=== PATIENT | female | born 1990 | race Caucasian/White ===

== ENCOUNTER 2019-03-11 13:06 | Outpatient (CLI) | payer SELFPAY ==
--- NOTE | 2019-03-11 15:29 | XR_ITS ---
WS: [id number] Chest 2 views, 03/11/2019 Clinical Data: ?PNEUMONIA Comparison: PA and lateral chest, 02/27/2019. Findings: No nodules, masses or effusions are seen. The heart is normal. The pulmonary vascularity is not increased. No pneumonia or pneumothorax is seen. XR/XR chest 2V* [id number] Impression: Negative chest.
== END 2019-03-11 13:07 | disposition home or self-care (01) ==
PROVIDERS: Family Provider Nurse Practitioner; PCP Nurse Practitioner; Visit Provider Internal Medicine Critical Care Medicine
DX: J45.909 Unspecified asthma, uncomplicated (principal)
CPT/HCPCS: 71046

== ENCOUNTER 2019-03-12 12:48 | Outpatient (CLI) | payer SELFPAY ==
[2019-03-15 17:02] LABS: Immunoglobulin E 93 kU/L (<OR=114)
== END 2019-03-12 12:49 | disposition home or self-care (01) ==
LOC: LAB 12:52
PROVIDERS: Family Provider Nurse Practitioner; PCP Nurse Practitioner; Visit Provider Internal Medicine Critical Care Medicine
DX: J45.909 Unspecified asthma, uncomplicated (principal)
CPT/HCPCS: 36415; 82785; 85025

== ENCOUNTER 2019-03-12 18:18 | Emergency (ER) | payer SELFPAY ==
[2019-03-12 18:19] VITALS: BP 167/100; PULSE 94; RESP 20; TEMP 36.9; O2SAT 94; BMI 44.9
--- NOTE | 2019-03-12 18:34 | XRR_ITS ---
PROCEDURE INFORMATION: Exam: XR Chest, 1 View Exam date and time: 03/12/2019 7:59 PM Age: 28 years old Clinical indication: Cough TECHNIQUE: Imaging protocol: XR of the chest Views: 1 view. COMPARISON: CR XR chest 2V* [id number] 03/11/2019 3:46 PM FINDINGS: Lungs: Unremarkable. No consolidation. Unchanged left basilar scarring. Unchanged mild basilar fibrosis. Pleural space: Unremarkable. No pleural effusion. No pneumothorax. Heart/Mediastinum: Unremarkable. No cardiomegaly. Bones/joints: Unremarkable. XR/XR chest 1V [id number] IMPRESSION: No acute findings.
--- NOTE | 2019-03-12 20:20 | PC.NURSE ---
Collected Urine from waiting room. Urine was sitting on registration desk and was taken to lab.
--- NOTE | 2019-03-12 20:51 | ED_ITS ---
HPI - SOB/Dyspnea General: Chief Complaint: Shortness of Breath/Dyspnea Stated Complaint: COUGH/BACK PAIN Time Seen by Provider: 03/12/19 20:51 Source: patient Mode of arrival: ambulatory Limitations: no limitations History of Present Illness: HPI Narrative: Patient is a 28-year-old female who presents to ED today with complaints of continued cough and congestion; patient states she is coughing so much that now the right side of her ribs hurt; patient apparently has been recently evaluated by pulmonology Dr. Tong and had a complete thorough evaluation performed including testing for alpha-1 which she does not know the results of yet; patient states he prescribed her steroids and azithromycin that she has just now filled MD elicited complaint: cough and pain with inspiration Onset (ago): day(s) Timing: constant Severity: moderate Exacerbating factors: nothing Relieving factors: nothing Associated symptoms: Reports no associated symptoms and chest congestion; Deny abdominal pain, chest pain (R rib pain), fever(s), hemoptysis, lightheadedness, nausea, palpitations, syncope or vomiting Treatment prior to arrival: none Related Data: Home oxygen amount: none Review of Systems Const: Denies: fever, chills or body aches Eyes: Denies: change in vision or blurry vision ENMT: Denies: throat pain, enlarged tonsils or painful swallowing Card: Denies: chest pain (R rib pain), palpitations, irregular heart rhythm, lightheadedness or syncope Resp: Reports: shortness of breath, productive cough, pain on inspiration and chest congestion; Denies: wheezing, stridor, change in phlegm color or coughing up blood GI: Denies: abdominal pain, nausea, vomiting, heartburn/indigestion or diarrhea : Denies: painful urination Musc: Denies: neck pain, back pain or joint pain Skin/Breast: Denies: rash PFSH ED PFSH: Statuses (acute, chronic, etc) shown below reflect problem list status as previously entered and may not be historically accurate Medical History (Updated 03/12/19 @ 22:17 by ANDI Benitez) Abscess of forearm, right (Acute) Acquired hypothyroidism (Acute) Allergic rhinitis, unspecified (Acute) Elevated ALT measurement (Acute) Essential (primary) hypertension (Acute) Family history of alpha 1 antitrypsin deficiency (Acute) Fibromyalgia (Acute) Generalized anxiety disorder (Acute) H/O drug abuse (Acute) Hx of abscess of skin and subcutaneous tissue (Acute) Intravenous drug user (Acute) Major depressive disorder, recurrent, moderate (Acute) Nontoxic thyroid nodule (Acute) Other constipation (Acute) Polycystic ovarian syndrome (Acute) Unspecified abdominal pain (Acute) Unspecified asthma, uncomplicated (Acute) Surgical History (Updated 03/11/19 @ 12:43 by Freddie Tong MD) Hx of cholecystectomy (Acute) Social History Smoking and tobacco status: current every day smoker cigarettes Packs smoked per day: 1.5 Years cigarettes smoked: 15 Quit status (tobacco): considering quitting Smoking risk assessment/counseling performed?: Yes Alcohol intake: current Alcohol intake frequency: 3 or more drinks per day Alcohol type: hard liquor Last alcohol use date: 03/11/19 Last substance use date: 04/23/18 Lives independently: Yes Household members: family Marital status: Single Current occupational status: employed History of recent travel: No Current gender identity: Female Female Reproductive History: Para: 2 Physical Exam Const: COMMON NORMALS: no apparent distress, oriented x3 and alert GENERAL APPEARANCE: cooperative HENMT: COMMON NORMALS: normocephalic, head/scalp atraumatic, external ears normal, EAC's normal, TM's normal bilaterally and external nose normal HEAD & SCALP: normal to inspection, normocephalic and atraumatic FACE & SINUS: normal facial exam NOSE: external nose normal EXTERNAL EAR: Yes external ears normal EXTERNAL AUDITORY CANAL: EAC's normal TYMPANIC MEMBRANE: TM's normal bilaterally MOUTH: oral and palatal mucosa normal THROAT: posterior oropharynx normal, tonsils normal and uvula midline Eye: COMMON NORMALS: PERRL and EOMs intact bilaterally PUPIL: Yes PERRL Neck/C-Spine: COMMON NORMALS: full ROM, no lymphadenopathy, supple and no meningeal signs Resp: COMMON NORMALS: normal respiratory effort, no retractions, no use of accessory muscles and clear to auscultation bilaterally AUSCULTATION: clear to auscultation bilaterally OTHER: course sounding cough noted; TTP R lateral ribs Cardio: COMMON NORMALS: regular rate and regular rhythm RATE: regular rate RHYTHM: regular rhythm GI: COMMON NORMALS: normal to inspection, nondistended, normoactive bowel sounds, soft to palpation, non-tender, no hepatosplenomegaly and no masses PALPATION: Yes soft and Yes no hepatosplenomegaly Back/Pelvis: COMMON NORMALS: thoracic and lumbar spine normal to inspection Extremity: COMMON NORMALS: normal to inspection GENERAL: Yes normal exam except as noted Neuro: COMMON NORMALS: oriented x3 SENSORIUM/ORIENTATION: Yes alert MENINGEAL SIGNS: Yes no meningeal signs Course Reevaluation(s): Reevaluation #1: re-evaluation reveals a room that smells like etoh; when asked if patient has been drinking she responds duh-everyone knows I'm an alcoholic Vital Signs: Vital signs: Vital Signs Temperature 98.4 F 03/12/19 18:19 Pulse Rate 106 H 03/12/19 22:25 Respiratory Rate 16 03/12/19 22:25 Blood Pressure 132/104 03/12/19 22:25 Pulse Oximetry 95 03/12/19 22:25 MDM - SOB/Dyspnea MDM Narrative: Medical decision making narrative: pt CXR normal; she has good follow up through pulmonology; patient will require a sober ride prior to discharge Imaging Data^: CXR: Radiologist's impression: [address] [address] XRay Report Signed Patient: Wendy De La Cruz JMR#: [id number] : 1990Acct:[id number] Age/Sex: 28 / FADM Date: 03/12/19 Loc: ER Attending Dr: Ordering Physician: Carmen Robles [place] [facility] [place] of Service: 03/12/19 Procedure(s): XR chest 1V [id number] Accession Number(s): [id number] cc: Carmen Robles MD, [facility] [place] PROCEDURE INFORMATION: Exam: XR Chest, 1 View Exam date and time: 03/12/2019 7:59 PM Age: 28 years old Clinical indication: Cough TECHNIQUE: Imaging protocol: XR of the chest Views: 1 view. COMPARISON: CR XR chest 2V* [id number] 03/11/2019 3:46 PM FINDINGS: Lungs: Unremarkable. No consolidation. Unchanged left basilar scarring. Unchanged mild basilar fibrosis. Pleural space: Unremarkable. No pleural effusion. No pneumothorax. Heart/Mediastinum: Unremarkable. No cardiomegaly. Bones/joints: Unremarkable. XR/XR chest 1V [id number] IMPRESSION: No acute findings. Dictated By: Ofe Hayes 03/12/192030 Signed By: Ofe Hayes 03/12/192031 Discharge Plan Discharge Patient Disposition: Home, Self-Care Clinical Impression: Bronchitis Condition: Stable Prescriptions: No Action albuterol sulfate [Ventolin HFA] 90 mcg/actuation HFA aerosol inhaler 2 puff INHALATION Q6H PRNRF: 0 Symbicort 160-4.5 mcg/actuation HFA aerosol inhaler 2 puff INHALATION Q12H 90 Days Qty: 10.2 RF: 3 albuterol sulfate 90 mcg/actuation HFA aerosol inhaler 2 puff INHALATION Q6H PRN (Reason: shortness of breath or wheezing) Qty: 18 RF: 3 methylprednisolone [Medrol (Gerardo)] 4 mg tablets,dose pack See Rx Instructions PO PER PKG DIR Qty: 21 RF: 0 azithromycin 500 mg tablet See Rx Instructions PO .COMPLEX Qty: 6 RF: 0 Buprenorphine HCI tablet sublingual TID RF: 0 Pending RF: 0 Discharge Orders: Discharge Order (Routine); Ordered 03/12/19 Ordered By: Chantale Singh Referrals: David Villar, [employer] INST[employer]ER AND REPA[facility] [Primary Care Provider] - Activity Restrictions/Additional Instructions: You need to follow up with primary care as soon as possible. Follow up with pulmonology as scheduled. Discharge Date/Time: 03/12/19 22:35 Coding Level of Care Code ED Cyber Workforce Developer And Manager for Chg Fwd Exam Problem Focused
[2019-03-12 21:10] VITALS: BP 165/100; PULSE 110; RESP 13; O2SAT 95
[2019-03-12 21:17] VITALS: O2SAT 94
[2019-03-12 21:44] VITALS: BP 175/70; PULSE 103; RESP 20; O2SAT 99
[2019-03-12 22:25] VITALS: BP 132/104; PULSE 106; RESP 16; O2SAT 95
== END 2019-03-12 22:35 | disposition home or self-care (01) ==
PROVIDERS: Emergency Provider Physician Assistant; Family Provider Nurse Practitioner; PCP Nurse Practitioner
DX: J40 Bronchitis, not specified as acute or chronic (principal); I10 Essential (primary) hypertension; F17.210 Nicotine dependence, cigarettes, uncomplicated
CPT/HCPCS: 71045; 99282

== ENCOUNTER 2019-03-13 20:29 | Emergency (ER) | payer SELFPAY ==
[2019-03-13 20:32] VITALS: BP 129/101; PULSE 92; RESP 20; TEMP 36.3; O2SAT 95; BMI 45.4
--- NOTE | 2019-03-13 20:34 | W.ED.NAVMDI ---
HPI - Nausea/Vomiting/Diarrhea General: Chief complaint: Shortness of Breath/Dyspnea Stated complaint: N/V Time Seen by Provider: 03/13/19 20:33 PFSH ED PFSH: Statuses (acute, chronic, etc) shown below reflect problem list status as previously entered and may not be historically accurate Medical History (Updated 03/12/19 @ 22:17 by ADNI Benitez) Abscess of forearm, right (Acute) Acquired hypothyroidism (Acute) Allergic rhinitis, unspecified (Acute) Elevated ALT measurement (Acute) Essential (primary) hypertension (Acute) Family history of alpha 1 antitrypsin deficiency (Acute) Fibromyalgia (Acute) Generalized anxiety disorder (Acute) H/O drug abuse (Acute) Hx of abscess of skin and subcutaneous tissue (Acute) Intravenous drug user (Acute) Major depressive disorder, recurrent, moderate (Acute) Nontoxic thyroid nodule (Acute) Other constipation (Acute) Polycystic ovarian syndrome (Acute) Unspecified abdominal pain (Acute) Unspecified asthma, uncomplicated (Acute) Surgical History (Updated 03/11/19 @ 12:43 by Freddie Tong MD) Hx of cholecystectomy (Acute) Social History Smoking and tobacco status: current every day smoker cigarettes Packs smoked per day: 1.5 Years cigarettes smoked: 15 Quit status (tobacco): considering quitting Smoking risk assessment/counseling performed?: Yes Alcohol intake: current Alcohol intake frequency: 3 or more drinks per day Alcohol type: hard liquor Last alcohol use date: 03/11/19 Last substance use date: 04/23/18 Lives independently: Yes Household members: family Marital status: Single Current occupational status: employed History of recent travel: No Current gender identity: Female Female Reproductive History: Para: 2 Course Vital Signs: Vital signs: Vital Signs Temperature 97.4 F L 03/13/19 20:32 Pulse Rate 92 03/13/19 20:32 Respiratory Rate 20 H 03/13/19 20:32 Blood Pressure 129/101 03/13/19 20:32 Pulse Oximetry 95 03/13/19 20:32 Discharge Plan Discharge Prescriptions: No Action albuterol sulfate [Ventolin HFA] 90 mcg/actuation HFA aerosol inhaler 2 puff INHALATION Q6H PRNRF: 0 Symbicort 160-4.5 mcg/actuation HFA aerosol inhaler 2 puff INHALATION Q12H 90 Days Qty: 10.2 RF: 3 albuterol sulfate 90 mcg/actuation HFA aerosol inhaler 2 puff INHALATION Q6H PRN (Reason: shortness of breath or wheezing) Qty: 18 RF: 3 methylprednisolone [Medrol (Gerardo)] 4 mg tablets,dose pack See Rx Instructions PO PER PKG DIR Qty: 21 RF: 0 azithromycin 500 mg tablet See Rx Instructions PO .COMPLEX Qty: 6 RF: 0 Buprenorphine HCI tablet sublingual TID RF: 0 Pending RF: 0 Coding Level of Care Code ED Manager Behavior for Chg Fwd
--- NOTE | 2019-03-13 20:43 | XRR_ITS ---
PROCEDURE INFORMATION: Exam: XR Chest, 1 View Exam date and time: 03/13/2019 9:50 PM Age: 28 years old Clinical indication: Smoker's cough; Additional info: Cough/congestion TECHNIQUE: Imaging protocol: XR of the chest Views: 1 view. COMPARISON: CR (CHEST, ) 03/12/2019 7:54 PM FINDINGS: Lungs: Lungs are clear. Pleural space: Unremarkable. No pleural effusion. No pneumothorax. Heart/Mediastinum: Cardiomediastinal contours are unremarkable. Bones/joints: Bones are unremarkable. XR/XR chest 1V portable [id number] IMPRESSION: No acute findings.
[2019-03-13 21:15] LABS: Basophils % 0.4 %; Eosinophils # 0.1 10^3/uL (0.0-0.8); Eosinophils % 0.7 %; Hematocrit 43.8 % (37.0-47.0); Hemoglobin 14.2 g/dL (11.5-15.3); Lymphocytes # 1.8 10^3/uL (0.8-4.8); Lymphocytes % 22.1 %; Mean Corpuscular HGB Conc 32.4 g/dL (30.0-36.0); Mean Corpuscular Hemoglobin 31.7 pg (28.0-34.0); Mean Corpuscular Volume 97.8 fL (81-99); Mean Platelet Volume 9.4 fL (7.4-10.4); Monocytes # 0.4 10^3/uL (0.2-0.9); Monocytes % 4.9 %; Neutrophils # 5.9 10^3/uL (1.8-7.7); Neutrophils % 71.7 %; Nucleated Red Blood Cells % 0 %; Platelet Count 215 10^3/cmm (130-400); Red Blood Count 4.48 10^6/uL (4.1-5.3); Red Cell Distribution Width 14.8 % (12.1-15.1); White Blood Count 8.2 10^3/uL (4.0-10.0)
[2019-03-13 21:40] LABS: Albumin Level 4.6 g/dL (3.5-5.2); Alkaline Phosphatase 114 IU/L (35-105); Anion Gap 18.4 (5-19); Blood Urea Nitrogen 7 mg/dL (6-20); Calcium 9.5 mg/Dl (8.6-10.0); Carbon Dioxide 25 mmol/L (22-29); Chloride 99 mmol/L (98-107); Glomerular Filtration Rate 118.2 mL/min (90-130); Glucose 109 mg/dL (74-109); Potassium 4.4 mmol/L (3.5-5.1); Sodium 138 mmol/L (136-145); Total Bilirubin 0.6 mg/dL (0.15-1.2); Total Protein 8.6 g/dL (6.6-8.7)
[2019-03-13 21:41] LABS: Alanine Aminotransferase 77 U/L (0-33); Aspartate Amino Transferase 112 U/L (0-32)
[2019-03-13] MEDS: ipratropium 0.5 mg/2.5 mL Neb INHALATION (22:15)
[2019-03-13 22:16] VITALS: PULSE 98; RESP 22; O2SAT 98
[2019-03-13 22:18] VITALS: PULSE 91; RESP 20; O2SAT 92
--- NOTE | 2019-03-13 22:25 | ED_ITS ---
HPI - URI/Sore Throat General: Chief Complaint: Shortness of Breath/Dyspnea Stated Complaint: N/V Time Seen by Provider: 03/13/19 20:33 Source: patient Mode of arrival: ambulatory Limitations: no limitations History of Present Illness: HPI Narrative: Patient is a 28-year-old female who returns to ED today again for complaints of a cough; she complains that she is hurting on her right ribs from the cough; she has had 1 dose of the steroids and 1 dose of the antibiotic she was prescribed by Dr. Ran KWAN elicited complaint: cough Onset (ago): day(s) Description of mucous: clear Relieving factors: nothing Associated symptoms: Reports no associated symptoms and chest pain (R rib pain); Deny abdominal pain, chills, diarrhea, fever(s), nausea or vomiting Treatments prior to arrival: antibiotics Review of Systems Const: Denies: fever, chills or body aches Eyes: Denies: change in vision or blurry vision ENMT: Denies: throat pain, enlarged tonsils, painful swallowing, swelling of lips/tongue or oral sores/lesions Card: Reports: chest pain (R rib pain); Denies: palpitations, irregular heart rhythm, lightheadedness, syncope or shortness of breath on exertion Resp: Reports: shortness of breath, productive cough and chest congestion; Denies: wheezing, stridor or pain on inspiration GI: Denies: abdominal pain, nausea, vomiting, heartburn/indigestion or diarrhea : Denies: painful urination Musc: Denies: neck pain, back pain or joint pain Skin/Breast: Denies: rash PFSH ED PFSH: Statuses (acute, chronic, etc) shown below reflect problem list status as previously entered and may not be historically accurate Medical History (Updated 03/13/19 @ 22:31 by ANDI Benitez) Abscess of forearm, right (Acute) Acquired hypothyroidism (Acute) Allergic rhinitis, unspecified (Acute) Elevated ALT measurement (Acute) Essential (primary) hypertension (Acute) Family history of alpha 1 antitrypsin deficiency (Acute) Fibromyalgia (Acute) Generalized anxiety disorder (Acute) H/O drug abuse (Acute) Hx of abscess of skin and subcutaneous tissue (Acute) Intravenous drug user (Acute) Major depressive disorder, recurrent, moderate (Acute) Nontoxic thyroid nodule (Acute) Other constipation (Acute) Polycystic ovarian syndrome (Acute) Unspecified abdominal pain (Acute) Unspecified asthma, uncomplicated (Acute) Surgical History (Updated 03/11/19 @ 12:43 by Freddie Tong MD) Hx of cholecystectomy (Acute) Social History Smoking and tobacco status: current every day smoker cigarettes Packs smoked per day: 1.5 Years cigarettes smoked: 15 Quit status (tobacco): considering quitting Smoking risk assessment/counseling performed?: Yes Alcohol intake: current Alcohol intake frequency: 3 or more drinks per day Alcohol type: hard liquor Last alcohol use date: 03/11/19 Last substance use date: 04/23/18 Lives independently: Yes Household members: family Marital status: Single Current occupational status: employed History of recent travel: No Current gender identity: Female Female Reproductive History: Date of last menstrual period: 03/13/19 Para: 2 Physical Exam Const: COMMON NORMALS: no apparent distress, oriented x3 and alert GENERAL APPEARANCE: cooperative ORIENTATION/CONSCIOUSNESS: Yes other (pt is intoxicated ) HENMT: COMMON NORMALS: normocephalic, head/scalp atraumatic, external ears normal, EAC's normal, TM's normal bilaterally and external nose normal HEAD & SCALP: normal to inspection, normocephalic and atraumatic FACE & SINUS: normal facial exam NOSE: external nose normal EXTERNAL EAR: Yes external ears normal EXTERNAL AUDITORY CANAL: EAC's normal TYMPANIC MEMBRANE: TM's normal bilaterally MOUTH: oral and palatal mucosa normal THROAT: posterior oropharynx normal, tonsils normal and uvula midline Eye: COMMON NORMALS: PERRL and EOMs intact bilaterally PUPIL: Yes PERRL Neck/C-Spine: COMMON NORMALS: full ROM, no lymphadenopathy, supple and no meningeal signs Chest: OTHER: TTP of R lateral ribs; palpation directly reproduces pain; reports pain has improved after taking her ibuprofen Resp: COMMON NORMALS: normal respiratory effort, no retractions and no use of accessory muscles EFFORT & INSPECTION: Yes other (pt is walking around the room talking on a cell phone in full sentances ) AUSCULTATION: other (course breath sounds throughout; better after coughing ) Cardio: COMMON NORMALS: regular rate and regular rhythm RATE: regular rate RHYTHM: regular rhythm GI: COMMON NORMALS: normal to inspection, nondistended, normoactive bowel sounds, soft to palpation, non-tender, no hepatosplenomegaly and no masses PALPATION: Yes soft and Yes no hepatosplenomegaly Back/Pelvis: COMMON NORMALS: thoracic and lumbar spine normal to inspection Extremity: COMMON NORMALS: normal to inspection GENERAL: Yes normal exam except as noted Neuro: COMMON NORMALS: oriented x3 SENSORIUM/ORIENTATION: Yes alert MENINGEAL SIGNS: Yes no meningeal signs Course Vital Signs: Vital signs: Vital Signs Temperature 97.4 F L 03/13/19 20:32 Pulse Rate 91 03/13/19 22:18 Respiratory Rate 20 H 03/13/19 22:18 Blood Pressure 129/101 03/13/19 20:32 Pulse Oximetry 92 03/13/19 22:18 MDM - URI/Sore Throat MDM Narrative: Medical decision making narrative: recommend she continue her steroids/abx; she will again need sober ride home; she has albuterol inhaler at home Lab Data: Labs: Lab Results 03/13/19 03/13/19 Range/Units 21:00 21:00 WBC 8.2 (4.0-10.0) 10^3/ uL RBC 4.48 (4.1-5.3) 10^6/u L Hgb 14.2 (11.5-15.3) g/dL Hct 43.8 (37.0-47.0) % MCV 97.8 (81-99) fL MCH 31.7 (28.0-34.0) pg MCHC 32.4 (30.0-36.0) g/dL RDW 14.8 (12.1-15.1) % Plt Count 215 (130-400) 10^3/c mm MPV 9.4 (7.4-10.4) fL Neut % (Auto) 71.7 % Lymph % (Auto) 22.1 % [place] % (Auto) 4.9 % Eos % (Auto) 0.7 % Baso % (Auto) 0.4 % Neut # (Auto) 5.9 (1.8-7.7) 10^3/u L Lymph # (Auto) 1.8 (0.8-4.8) 10^3/u L [place] # (Auto) 0.4 (0.2-0.9) 10^3/u L Eos # (Auto) 0.1 (0.0-0.8) 10^3/u L Baso # (Auto) 0.0 (0.0-0.1) 10^3/u L Nucleated RBC % (a uto) 0 % Nucleated RBCs # 0.0 /100WBC Sodium 138 (136-145) mmol/L Potassium 4.4 (3.5-5.1) mmol/L Chloride 99 (98-107) mmol/L Carbon Dioxide 25 (22-29) mmol/L Anion Gap 18.4 (5-19) BUN 7 (6-20) mg/dL Creatinine 0.6 (0.5-0.9) mg/dL GFR Calculation 118.2 (90-130) mL/min Glucose 109 (74-109) mg/dL Calcium 9.5 (8.6-10.0) mg/Dl Total Bilirubin 0.6 (0.15-1.2) mg/dL AST 112 H (0-32) U/L ALT 77 H (0-33) U/L Alkaline Phosphata se 114 H (35-105) IU/L Total Protein 8.6 (6.6-8.7) g/dL Albumin 4.6 (3.5-5.2) g/dL Globulin 4.0 (1.3-4.6) g/dL Imaging Data^: CXR: My impression: no acute changes from yesterday's films Radiologist's impression: [place] [address] XRay Report Signed Patient: Wendy De La Cruz MR#: [id number] : 1990 Acct:[id number] Age/Sex: 28 / F ADM Date: 03/13/19 Loc: ER Attending Dr: Ordering Physician: Chantale Singh Date of Service: 03/13/19 Procedure(s): XR chest 1V portable [id number] Accession Number(s): [id number] cc: Chantale Singh PROCEDURE INFORMATION: Exam: XR Chest, 1 View Exam date and time: 03/13/2019 9:50 PM Age: 28 years old Clinical indication: Smoker's cough; Additional info: Cough/congestion TECHNIQUE: Imaging protocol: XR of the chest Views: 1 view. COMPARISON: CR (CHEST, ) 03/12/2019 7:54 PM FINDINGS: Lungs: Lungs are clear. Pleural space: Unremarkable. No pleural effusion. No pneumothorax. Heart/Mediastinum: Cardiomediastinal contours are unremarkable. Bones/joints: Bones are unremarkable. XR/XR chest 1V portable [id number] IMPRESSION: No acute findings. Dictated By: Dalton Lu MD 03/13/192228 Signed By: Dalton Lu MD 03/13/192229 Discharge Plan Discharge Patient Disposition: Home, Self-Care Clinical Impression: Bronchitis Condition: Stable Prescriptions: No Action albuterol sulfate [Ventolin HFA] 90 mcg/actuation HFA aerosol inhaler 2 puff INHALATION Q6H PRNRF: 0 Symbicort 160-4.5 mcg/actuation HFA aerosol inhaler 2 puff INHALATION Q12H 90 Days Qty: 10.2 RF: 3 albuterol sulfate 90 mcg/actuation HFA aerosol inhaler 2 puff INHALATION Q6H PRN (Reason: shortness of breath or wheezing) Qty: 18 RF: 3 methylprednisolone [Medrol (Gerardo)] 4 mg tablets,dose pack See Rx Instructions PO PER PKG DIR Qty: 21 RF: 0 azithromycin 500 mg tablet See Rx Instructions PO .COMPLEX Qty: 6 RF: 0 Buprenorphine HCI tablet sublingual TID RF: 0 Pending RF: 0 Discharge Orders: Discharge Order (Routine); Ordered 03/13/19 Ordered By: Chantale Singh Referrals: David Villar, TEMPLATE FITTER-[facility] [Primary Care Provider] - Discharge Activity: Increase activity as tolerated Activity Restrictions/Additional Instructions: Follow up with primary care or Dr. Tong this week. Coding Level of Care Code ED Sales Representative Groceries for Chg Fwd Exam Problem Focused
[2019-03-13 22:51] VITALS: BP 122/94; PULSE 70; RESP 16; O2SAT 97
[2019-03-14 00:53] LABS: HCG, Serum Qual Negative (Negative)
--- NOTE | 2019-03-15 15:51 | DCPLANNER ---
manager sustainability had message to schedule a follow up appointment for patient with [facility]. manager sustainability called [facility], spoke with Berta, a follow up appointment is scheduled for April at 11:[address] Tong. Clinic stated that they would call patient with appointment information.
--- NOTE | 2019-05-19 15:52 | DCPLANNER ---
Patient did not attend appointment scheduled for 04.15.19 with [facility].
== END 2019-03-13 22:54 | disposition home or self-care (01) ==
PROVIDERS: Emergency Provider Physician Assistant; Family Provider Nurse Practitioner; PCP Nurse Practitioner
DX: J40 Bronchitis, not specified as acute or chronic (principal); I10 Essential (primary) hypertension; F17.210 Nicotine dependence, cigarettes, uncomplicated
CPT/HCPCS: 71045; 80053; 84703; 85025; 96372; 99281; J2930; J7611; J7644

== ENCOUNTER 2019-08-13 06:04 | Emergency (ER) | payer SELFPAY ==
[2019-08-13 06:10] VITALS: PULSE 104; RESP 18; TEMP 36.7; O2SAT 92
--- NOTE | 2019-08-13 06:41 | XR_ITS ---
WS: [id number] PORTABLE CHEST HISTORY: short of breath COMPARISON: 03/13/2019 Lungs are clear and well expanded. No pleural effusion or pneumothorax. Cardiac size: Normal. Mediastinum/Aorta: Normal mediastinum. No osseous abnormality seen. XR/XR chest 1V portable [id number] IMPRESSION: Unremarkable portable chest.
[2019-08-13 06:43] VITALS: BP 161/128; PULSE 102; RESP 20; O2SAT 99
--- NOTE | 2019-08-13 06:44 | ED_ITS ---
HPI - Chest Pain General: Chief Complaint: Chest Pain Stated Complaint: ALCOHOL DETOX; CP/SOB Time Seen by Provider: 08/13/19 06:16 History of Present Illness: HPI narrative: This patient is a 29-year-old female presenting with multiple complaints today. The 2 primary complaints are shortness of breath and alcohol withdrawal. She also has had vomiting and says that she has inhaled some vomit. She also has started using IV drugs again but says that it is her own Subutex that she is injecting. She said she had been drinking half a gallon of alcohol on a daily basis for about 3 months. In the past 2 days she has been staying with her mother and trying to cut down on her alcohol intake. She is not able to tell me how much she has had to drink in the past 2 days. Her last drink was at 5 AM just prior to coming in. It is unclear when she last used IV Subutex. She has been to rehab for heroin but she said it has been a long time ago. She had been sober from alcohol until about 3 months ago when she started drinking again. She repeatedly mentioned some stressful and traumatic incident that she did not want to talk about. She has a history of asthma but says they gave her the wrong inhaler and it is not helping. The chief complaint she mentioned to the nurse was chest pain but she denied chest pain to me. She is a little disorganized in her speech and thought. Her mother has been giving her 4 Benadryl every 4 hours for her withdrawal symptoms. When I mentioned I thought that was too much she then said that she only had 6 yesterday over the course of the day. She has not taken any today. MD complaint: other (Short of breath, vomiting, alcohol withdrawal) Onset (ago): week(s) Timing of current episode: constant Associated symptoms: Reports dyspnea and vomiting; Deny fever(s) Review of Systems General: Reports: 10 or more systems reviewed and unremarkable except in HPI and below Const: Denies: fever(s), chills, fatigue or malaise Eyes: Denies: change in vision ENMT: Denies: odynophagia Card: Denies: chest pain or swelling of feet/ankles Resp: Reports: dyspnea GI: Reports: vomiting : Denies: flank pain or difficulty voiding Musc: Denies: neck pain or back pain Skin/Breast: Denies: rash Neuro: Denies: headache(s), numbness in extremities or weakness in extremities Endo: Reports: excessive sweating Dg/Lymph: Denies: easy bruising or easy bleeding PFSH ED PFSH: Medical History Abscess of forearm, right Acquired hypothyroidism Allergic rhinitis, unspecified Elevated ALT measurement Essential (primary) hypertension Family history of alpha 1 antitrypsin deficiency Fibromyalgia Generalized anxiety disorder H/O drug abuse Hx of abscess of skin and subcutaneous tissue Intravenous drug user Major depressive disorder, recurrent, moderate Nontoxic thyroid nodule Other constipation Polycystic ovarian syndrome Unspecified abdominal pain Unspecified asthma, uncomplicated Surgical History Hx of cholecystectomy Family History Other Drug abuse, amphetamine type Hypertension Social History Smoking and tobacco status: current every day smoker cigarettes Packs smoked per day: 1.5 Years cigarettes smoked: 15 Quit status (tobacco): considering quitting Smoking risk assessment/counseling performed?: Yes Alcohol intake: current Alcohol intake frequency: 3 or more drinks per day Alcohol type: hard liquor Last alcohol use date: 03/11/19 Last substance use date: 04/23/18 Lives independently: Yes Household members: family Marital status: Single Current occupational status: employed History of recent travel: No Current gender identity: Female Female Reproductive History: Date of last menstrual period: 03/13/19 Para: 2 Physical Exam Const: COMMON NORMALS: no acute distress, patient oriented x3, no limitations and alert GENERAL APPEARANCE: cooperative, comfortable and disheveled NUTRITIONAL APPEARANCE: obese HENMT: HEAD & SCALP: normal to inspection FACE & SINUS: normal facial exam Eye: GENERAL EYE: appearance normal, both eyes and all related structures Neck/C-Spine: COMMON NORMALS: supple, no meningeal signs and no JVD Chest: COMMONS NORMALS: normal inspection of the chest Resp: COMMON NORMALS: normal respiratory effort, No use of accessory muscles and clear to auscultation bilaterally AUSCULTATION: clear to auscultation bilaterally and wheezes Cardio: COMMON NORMALS: no JVD, regular rate, regular rhythm and No murmurs present (Cardio) RATE: regular rate RHYTHM: regular rhythm GI: COMMON NORMALS: Normal to inspection, nondistended, normoactive bowel sounds present, Soft to palpation and non-tender INSPECTION: Yes normal to inspection AUSCULTATION: Yes normoactive bowel sounds PALPATION: Yes Soft to palpation Back/Pelvis: COMMON NORMALS: thoracic and lumbar spine normal to inspection Extremity: COMMON NORMALS: normal to inspection Neuro: COMMON NORMALS: patient oriented x3, moves all extremities, no focal motor deficits and no sensory deficits noted SENSORIUM/ORIENTATION: Yes alert MENINGEAL SIGNS: Yes no meningeal signs Psych: COMMON NORMALS: mental status grossly normal and cooperative ATTITUDE: Yes bizarre and Yes evasive ACTIVITY/MOTOR BEHAVIOR: Yes psychomotor agitation and Yes disorganized behavior SPEECH: Yes excessive Skin: COMMON NORMALS: no rashes or lesions noted and turgor normal GENERAL SKIN EXAM: no rashes or lesions noted and turgor normal Course ED course: Ativan and IV fluids were given. The patient's magnesium was quite low and she was given IV magnesium although she was not able to tolerate the full dose. She rested comfortably after the medications. Her mother is working on getting her into a rehab. She does not need admission today. Her mother will monitor her medications at home. We discussed not giving more than the prescribed amount of any medication or [id number] medication. I am sending her home with [facility] as well as a prescription for her inhaler that she said helps her breathing which is budesonide. I have also instructed her not to inject Subutex. We discussed signs of worsening alcohol withdrawal and when to return to the ED. Vital Signs: Vital signs: Vital Signs Temperature 98.1 F 08/13/19 06:10 Pulse Rate 81 08/13/19 11:33 Respiratory Rate 18 08/13/19 11:33 Blood Pressure 168/106 08/13/19 11:33 Pulse Oximetry 93 08/13/19 11:33 MDM - Chest Pain Lab Data: Labs: Lab Results 08/13/19 08/13/19 08/13/19 Range/Units 07:24 07:24 07:24 WBC 3.6 L (4.0-10.0) 10^3/ uL RBC 4.51 (4.1-5.3) 10^6/u L Hgb 15.0 (11.5-15.3) g/dL Hct 47.4 H (37.0-47.0) % MCV 105.1 H (81-99) fL MCH 33.3 (28.0-34.0) pg MCHC 31.6 (30.0-36.0) g/dL RDW 14.9 (12.1-15.1) % Plt Count 104 L (130-400) 10^3/c mm MPV 9.7 (7.4-10.4) fL Neut % (Auto) 36.4 % Lymph % (Auto) 49.7 % [place] % (Auto) 8.6 % Eos % (Auto) 4.2 % Baso % (Auto) 0.8 % Neut # (Auto) 1.3 L (1.8-7.7) 10^3/u L Lymph # (Auto) 1.8 (0.8-4.8) 10^3/u L [place] # (Auto) 0.3 (0.2-0.9) 10^3/u L Eos # (Auto) 0.2 (0.0-0.8) 10^3/u L Baso # (Auto) 0.0 (0.0-0.1) 10^3/u L Nucleated RBC % (a uto) 0 % Nucleated RBCs # 0.0 /100WBC Sodium 140 (136-145) mmol/L Potassium 3.8 (3.5-5.1) mmol/L Chloride 99 (98-107) mmol/L Carbon Dioxide 27 (22-29) mmol/L Anion Gap 17.8 (5-19) BUN 5 L (6-20) mg/dL Creatinine 0.6 (0.5-0.9) mg/dL GFR Calculation 117.4 (90-130) mL/min Glucose 84 (65-115) mg/dL Calculated Osmolal ity 285 (285-295) mOsm/k g Lactate 2.4 H (0.5-2.2) mmol/L Calcium 9.3 (8.5-10.5) mg/dL Magnesium 1.4 L (1.7-2.3) mg/dL Total Bilirubin 0.6 (0.15-1.2) mg/dL AST 163 H (0-32) U/L ALT 82 H (0-33) U/L Alkaline Phosphata se 87 (35-105) IU/L Total Protein 8.3 (6.6-8.7) g/dL Albumin 4.0 (3.5-5.2) g/dL Globulin 4.3 (1.3-4.6) g/dL Lipase 66 H (13-60) U/L HCG, Qual (Negative) Urine Color (Yellow) Urine Appearance (CLEAR) Urine pH (5-7) Ur Specific Gravit y (1.005-1.030) Urine Protein (Negative) Urine Glucose (UA) (Normal) Urine Ketones (Negative) Urine Blood (Negative) Urine Nitrate (Negative) Urine Bilirubin (NEGATIVE) Urine Urobilinogen (Negative) mg/dL Ur Leukocyte Louisa ase (Negative) Urine Opiates Scre en (Negative) ng/mL Ur Barbiturates Sc reen (Negative) ng/mL Ur Phencyclidine S crn (Negative) ng/mL Ur Amphetamines Sc reen (Negative) ng/mL U Benzodiazepines Scrn (Negative) ng/mL Urine Cocaine Scre en (Negative) ng/mL U Marijuana (THC) Screen (Negative) ng/mL Ethyl Alcohol 110 H (0-10) mg/dL 08/13/19 08/13/19 08/13/19 Range/Units 07:24 09:52 09:52 WBC (4.0-10.0) 10^3/ uL RBC (4.1-5.3) 10^6/u L Hgb (11.5-15.3) g/dL Hct (37.0-47.0) % MCV (81-99) fL MCH (28.0-34.0) pg MCHC (30.0-36.0) g/dL RDW (12.1-15.1) % Plt Count (130-400) 10^3/c mm MPV (7.4-10.4) fL Neut % (Auto) % Lymph % (Auto) % [place] % (Auto) % Eos % (Auto) % Baso % (Auto) % Neut # (Auto) (1.8-7.7) 10^3/u L Lymph # (Auto) (0.8-4.8) 10^3/u L [place] # (Auto) (0.2-0.9) 10^3/u L Eos # (Auto) (0.0-0.8) 10^3/u L Baso # (Auto) (0.0-0.1) 10^3/u L Nucleated RBC % (a uto) % Nucleated RBCs # /100WBC Sodium (136-145) mmol/L Potassium (3.5-5.1) mmol/L Chloride (98-107) mmol/L Carbon Dioxide (22-29) mmol/L Anion Gap (5-19) BUN (6-20) mg/dL Creatinine (0.5-0.9) mg/dL GFR Calculation (90-130) mL/min Glucose (65-115) mg/dL Calculated Osmolal ity (285-295) mOsm/k g Lactate (0.5-2.2) mmol/L Calcium (8.5-10.5) mg/dL Magnesium (1.7-2.3) mg/dL Total Bilirubin (0.15-1.2) mg/dL AST (0-32) U/L ALT (0-33) U/L Alkaline Phosphata se (35-105) IU/L Total Protein (6.6-8.7) g/dL Albumin (3.5-5.2) g/dL Globulin (1.3-4.6) g/dL Lipase (13-60) U/L HCG, Qual Negative (Negative) Urine Color Yellow (Yellow) Urine Appearance Clear (CLEAR) Urine pH 6 (5-7) Ur Specific Gravit y 1.015 (1.005-1.030) Urine Protein Neg (Negative) Urine Glucose (UA) Norm (Normal) Urine Ketones Negative (Negative) Urine Blood Neg (Negative) Urine Nitrate Negative (Negative) Urine Bilirubin Neg (NEGATIVE) Urine Urobilinogen 1 H (Negative) mg/dL Ur Leukocyte Louisa ase Negative (Negative) Urine Opiates Scre en Negative (Negative) ng/mL Ur Barbiturates Sc reen Negative (Negative) ng/mL Ur Phencyclidine S crn Negative (Negative) ng/mL Ur Amphetamines Sc reen Negative (Negative) ng/mL U Benzodiazepines Scrn Positive H (Negative) ng/mL Urine Cocaine Scre en Negative (Negative) ng/mL U Marijuana (THC) Screen Negative (Negative) ng/mL Ethyl Alcohol (0-10) mg/dL Discharge Plan Discharge Patient Disposition: Home, Self-Care Clinical Impression: Substance abuse Asthma Qualifiers: Asthma severity: unspecified severity Asthma persistence: unspecified Asthma complication type: uncomplicated Qualified Code(s): J45.909 - Unspecified asthma, uncomplicated Alcohol withdrawal Qualifiers: Complication of substance-induced condition: uncomplicated Qualified Code(s): F10.230 - Alcohol dependence with withdrawal, uncomplicated Condition: Stable Prescriptions: New chlordiazepoxide HCl 25 mg capsule 100 mg PO Q8H MDD 300 mg (12 capsules) PRN (Reason: alcohol withdrawal) 6 Days Qty: 36 RF: 0 budesonide 180 mcg/actuation aerosol powdr breath activated 1 inh INHALATION DAILY Qty: 1 RF: 0 ondansetron HCl 4 mg tablet 4 mg PO Q6H PRN (Reason: nausea and vomiting) Qty: 10 RF: 0 No Action albuterol sulfate 90 mcg/actuation HFA aerosol inhaler 2 puff INHALATION Q6H PRN (Reason: shortness of breath or wheezing) Qty: 18 RF: 3 Buprenorphine HCI tablet 1 tab sublingual TID RF: 0 Discharge Orders: Discharge Order (Routine); Ordered 08/13/19 Ordered By: Lynne Bernardo Referrals: David Villar, VOCATIONAL PLACEMENT SPECIALIST-C [Primary Care Provider] - Discharge Diet: Usual diet Discharge Activity: Resume usual activity Patient Instructions: Alcohol Withdrawal (ED) Activity Restrictions/Additional Instructions: Take the prescribed medication as directed. You may take up to 4 tablets at a time every 8 hours. You should decrease the dose daily meaning on the second day take 3 tablets every 8 hours, on the third day take 2 tablets every 8 hours. You may use the Zofran for nausea. Use the inhaler that you have at home as needed and use the inhaler prescribed today on a regular basis. Do not inject Subutex. Follow-up with your primary care doctor for reevaluation. Continue your efforts to get into a detox or rehab. Return to the ED if hallucinations, seizures, difficulty breathing or any other new or concerning symptoms. Discharge Date/Time: 08/13/19 12:04 Coding Level of Care Code ED Veterinary Laboratory Technician for Bartolo Fwcassius Exam Comprehensive
[2019-08-13] MEDS: ondansetron 2 mg/ML SDV 2 mL 4 MG IVP ×2 (07:02→11:01)
[2019-08-13] MEDS: famotidine 20 mg/2 mL INJ 40 MG IVP (07:02)
[2019-08-13] MEDS: LORazepam 2 mg/mL INJ 1 mL IVP (07:03)
[2019-08-13 07:31] LABS: Basophils % 0.8 %; Eosinophils # 0.2 10^3/uL (0.0-0.8); Eosinophils % 4.2 %; Hematocrit 47.4 % (37.0-47.0); Lymphocytes # 1.8 10^3/uL (0.8-4.8); Lymphocytes % 49.7 %; Mean Corpuscular HGB Conc 31.6 g/dL (30.0-36.0); Mean Corpuscular Hemoglobin 33.3 pg (28.0-34.0); Mean Corpuscular Volume 105.1 fL (81-99); Mean Platelet Volume 9.7 fL (7.4-10.4); Monocytes # 0.3 10^3/uL (0.2-0.9); Monocytes % 8.6 %; Neutrophils # 1.3 10^3/uL (1.8-7.7); Neutrophils % 36.4 %; Nucleated Red Blood Cells % 0 %; Platelet Count 104 10^3/cmm (130-400); Red Blood Count 4.51 10^6/uL (4.1-5.3); Red Cell Distribution Width 14.9 % (12.1-15.1); White Blood Count 3.6 10^3/uL (4.0-10.0)
[2019-08-13 07:40] LABS: HCG, Serum Qual Negative (Negative)
[2019-08-13 07:45] LABS: Lactate (Lactic Acid level) 2.4 mmol/L (0.5-2.2)
[2019-08-13 07:47] LABS: Alanine Aminotransferase 82 U/L (0-33); Alcohol Level 110 mg/dL (0-10); Alkaline Phosphatase 87 IU/L (35-105); Anion Gap 17.8 (5-19); Blood Urea Nitrogen 5 mg/dL (6-20); Calcium 9.3 mg/dL (8.5-10.5); Carbon Dioxide 27 mmol/L (22-29); Chloride 99 mmol/L (98-107); Globulin 4.3 g/dL (1.3-4.6); Glomerular Filtration Rate 117.4 mL/min (90-130); Glucose 84 mg/dL (65-115); Lipase 66 U/L (13-60); Magnesium 1.4 mg/dL (1.7-2.3); Osmolality Calculated 285 mOsm/kg (285-295); Potassium 3.8 mmol/L (3.5-5.1); Sodium 140 mmol/L (136-145); Total Bilirubin 0.6 mg/dL (0.15-1.2); Total Protein 8.3 g/dL (6.6-8.7)
[2019-08-13] MEDS: magnesium sulfate premix 2 GM/50 ML PIGGYBACK IV (08:05)
[2019-08-13] MEDS: ipratropium-albuterol 3 mL Neb INHALATION (08:06)
[2019-08-13 08:07] VITALS: PULSE 92; RESP 17; O2SAT 92
[2019-08-13 08:09] LABS: Aspartate Amino Transferase 163 U/L (0-32)
[2019-08-13 08:13] VITALS: PULSE 94
[2019-08-13] MEDS: sodium chloride 0.9% 1,000 ML 999 ML IV (08:25)
[2019-08-13 08:26] VITALS: BP 151/104; PULSE 92; RESP 18; O2SAT 94
[2019-08-13 10:11] LABS: Add Urine Microscopic? NO
[2019-08-13 10:14] LABS: Bilirubin Urine Neg (NEGATIVE); Blood Urine Neg (Negative); Glucose Urine UA Norm (Normal); Ketones Urine Negative (Negative); Leukocyte Esterase Urine Negative (Negative); Nitrate Urine Negative (Negative); Protein Urine Neg (Negative); Specific Gravity, Urine 1.015 (1.005-1.030); Urine Appearance Clear (CLEAR); Urine Color Yellow (Yellow); Urobilinogen Urine 1 mg/dL (Negative); pH Urine 6 (5-7)
[2019-08-13 10:21] LABS: Amphetamines Screen Urine Negative (Negative); Barbiturates Screen Urine Negative (Negative); Benzodiazepines Screen Urine Positive (Negative); Cocaine Screen Urine Negative (Negative); Opiate Screen Urine Negative (Negative); PCP Screen Urine Negative (Negative); THC Screen Urine Negative (Negative)
[2019-08-13] MEDS: LORazepam 2 mg/mL INJ 1 mL 1 MG IVP (11:02)
[2019-08-13 11:33] VITALS: BP 168/106; PULSE 81; RESP 18; O2SAT 93
--- NOTE | 2019-08-13 12:05 | PC.NURSE ---
Called [facility] [place], they stated they were unable to deliver the medications at this time, but they were ready to be picked up by patient. Patient was instructed to fruit or nut picker medications from pharmacy after leaving ED
== END 2019-08-13 12:04 | disposition home or self-care (01) ==
PROVIDERS: Emergency Provider Emergency Medicine; Family Provider Nurse Practitioner; PCP Nurse Practitioner
DX: J45.909 Unspecified asthma, uncomplicated (principal); F19.10 Other psychoactive substance abuse, uncomplicated; F10.230 Alcohol dependence with withdrawal, uncomplicated; I10 Essential (primary) hypertension; F17.210 Nicotine dependence, cigarettes, uncomplicated
CPT/HCPCS: 12345; 36415; 71045; 80053; 80306; 80307; 81003; 83605; 83690; 83735; 84703; 85025; 94640; 96365; 96375; 96376; 99283; J2060; J2405; J3475; J3490; J7030

== ENCOUNTER 2019-09-04 20:02 | Emergency (ER) | payer SELFPAY ==
[2019-09-04 20:05] VITALS: BP 168/127; PULSE 100; RESP 20; TEMP 37.1; O2SAT 97; BMI 47.3
[2019-09-04 21:02] VITALS: BP 129/90; PULSE 85; RESP 18; O2SAT 93
[2019-09-04 21:04] LABS: Basophils # 0.1 10^3/uL (0.0-0.1); Basophils % 1.1 %; Eosinophils # 0.2 10^3/uL (0.0-0.8); Lymphocytes # 2.8 10^3/uL (0.8-4.8); Lymphocytes % 58.5 %; Mean Corpuscular HGB Conc 32.6 g/dL (30.0-36.0); Mean Corpuscular Hemoglobin 34.6 pg (28.0-34.0); Mean Platelet Volume 10.7 fL (7.4-10.4); Monocytes # 0.2 10^3/uL (0.2-0.9); Monocytes % 4.3 %; Neutrophils # 1.5 10^3/uL (1.8-7.7); Neutrophils % 31.9 %; Nucleated Red Blood Cells % 0 %; Platelet Count 96 10^3/cmm (130-400); Red Blood Count 4.34 10^6/uL (4.1-5.3); Red Cell Distribution Width 15.8 % (12.1-15.1); White Blood Count 4.7 10^3/uL (4.0-10.0)
[2019-09-04 21:35] LABS: Acetaminophen < 5.0 ug/mL (10-30); Albumin Level 3.9 g/dL (3.5-5.2); Alkaline Phosphatase 89 IU/L (35-105); Anion Gap 23.1 (5-19); Blood Urea Nitrogen 6 mg/dL (6-20); Calcium 8.5 mg/dL (8.5-10.5); Carbon Dioxide 25 mmol/L (22-29); Chloride 101 mmol/L (98-107); Globulin 3.5 g/dL (1.3-4.6); Glomerular Filtration Rate 98.3 mL/min (90-130); Glucose 96 mg/dL (65-115); Lipase 49 U/L (13-60); Osmolality Calculated 296 mOsm/kg (285-295); Potassium 4.1 mmol/L (3.5-5.1); Salicylate < 0.3 mg/dL (3-10); Sodium 145 mmol/L (136-145); Total Bilirubin 0.7 mg/dL (0.15-1.2); Total Protein 7.4 g/dL (6.6-8.7)
[2019-09-04 21:36] LABS: Alcohol Level 387 mg/dL (0-10)
--- NOTE | 2019-09-04 21:36 | PC.NURSE ---
lab called to notify staff of [facility]. rn notified
[2019-09-04 21:37] LABS: Alanine Aminotransferase 99 U/L (0-33); Aspartate Amino Transferase 225 U/L (0-32)
[2019-09-04] MEDS: haloperidol inj 5 mg/mL INJ 1 mL 3 MG IVP (21:56)
[2019-09-04] MEDS: ondansetron 2 mg/ML SDV 2 mL 4 MG IVP (21:57)
[2019-09-04] MEDS: sodium chloride 0.9% 1,000 ML 999 ML IV (21:58)
[2019-09-04 22:02] VITALS: BP 151/90; PULSE 80; RESP 18; O2SAT 93
[2019-09-04 22:21] LABS: Amphetamines Screen Urine Negative (Negative); Barbiturates Screen Urine Negative (Negative); Benzodiazepines Screen Urine Positive (Negative); Cocaine Screen Urine Negative (Negative); Opiate Screen Urine Negative (Negative); PCP Screen Urine Negative (Negative); Protein Urine Trace (Negative); THC Screen Urine Positive (Negative); Urine Appearance Cloudy (CLEAR); Urine Color Yellow (Yellow); pH Urine 5 (5-7)
[2019-09-04 22:22] LABS: Add Urine Microscopic? YES; Bilirubin Urine 1+ (NEGATIVE); Blood Urine 2+ (Negative); Glucose Urine UA Norm (Normal); Ketones Urine 1+ (Negative); Leukocyte Esterase Urine Trace (Negative); Nitrate Urine Negative (Negative); Urobilinogen Urine 4 mg/dL (Negative)
[2019-09-04 22:23] LABS: RBC Urine 0-4 /hpf (0-2)
[2019-09-04 22:24] LABS: Bacteria Urine 2+; Squamous Epithelial Cell Urine 15-25 (0-5)
[2019-09-04 22:25] LABS: Add Urine Culture? No; Mucus Urine TRACE
[2019-09-04 23:03] VITALS: BP 105/87; PULSE 91; RESP 18; O2SAT 92
[2019-09-04 23:51] VITALS: BP 126/105; PULSE 88; RESP 18; O2SAT 99
[2019-09-05 00:40] VITALS: BP 124/80; PULSE 82; O2SAT 94
[2019-09-05 00:44] LABS: Alcohol Level 281 mg/dL (0-10)
[2019-09-05 03:16] VITALS: BP 143/85; RESP 18; O2SAT 94
[2019-09-05 03:24] VITALS: BP 143/85; PULSE 68; RESP 18; O2SAT 94
--- NOTE | 2019-09-06 06:57 | W.ED.ALCOHOL ---
HPI - Alcohol General: Chief Complaint: Alcohol Stated Complaint: ETOH Time Seen by Provider: 09/04/19 20:16 History of Present Illness: HPI narrative: 29-year-old intoxicated female comes in by ambulance. Her complaint is that of anxiety. She states that she drinks in the morning to prevent hangover symptoms. She had quite a bit to drink today complaint: alcohol intoxication Last drink: Just [employer] Chronic alcohol use: Yes Previous visits for alcohol intoxication: Yes Recent trauma: No Associated symptoms: Reports nausea; Deny vomiting Review of Systems Const: Denies: fever(s) or chills Eyes: Reports: blurry vision; Denies: change in vision ENMT: Reports: dental pain; Denies: bleeding gums, change in hearing, epistaxis, post nasal drip or sinus pain Card: Denies: chest pain, palpitations or irregular heart rhythm Resp: Denies: dyspnea, productive cough, non-productive cough or wheezing GI: Reports: nausea; Denies: vomiting : Reports: dysuria; Denies: urinary urgency or hematuria Skin/Breast: Denies: rash, pruritus or erythema Neuro: Reports: headache(s); Denies: dizziness or vertigo [facility] ED PFSH: Medical History (Updated 09/05/19 @ 01:04 by Ray Martinez DO) Abscess of forearm, right Acquired hypothyroidism Allergic rhinitis, unspecified Elevated ALT measurement Essential (primary) hypertension Family history of alpha 1 antitrypsin deficiency Fibromyalgia Generalized anxiety disorder H/O drug abuse Hx of abscess of skin and subcutaneous tissue Intravenous drug user Major depressive disorder, recurrent, moderate Nontoxic thyroid nodule Other constipation Polycystic ovarian syndrome Unspecified abdominal pain Unspecified asthma, uncomplicated Surgical History Hx of cholecystectomy Family History Other Drug abuse, amphetamine type Hypertension Social History Smoking and tobacco status: current every day smoker cigarettes Packs smoked per day: 1.5 Years cigarettes smoked: 15 Quit status (tobacco): considering quitting Smoking risk assessment/counseling performed?: Yes Alcohol intake: current Alcohol intake frequency: 3 or more drinks per day Alcohol type: hard liquor Last alcohol use date: 03/11/19 Last substance use date: 04/23/18 Lives independently: Yes Household members: family Marital status: Single Current occupational status: employed History of recent travel: No Current gender identity: Female Female Reproductive History: Date of last menstrual period: 03/13/19 Para: 2 Physical Exam Const: GENERAL APPEARANCE: cooperative, disheveled and appears older than stated age ORIENTATION/CONSCIOUSNESS: Yes oriented to person and Yes oriented to place; not oriented to time HENMT: COMMON NORMALS: normocephalic, external ears normal and Normal external nose present HEAD & SCALP: normocephalic FACE & SINUS: normal facial exam NOSE: Normal external nose present and No nasal discharge present EXTERNAL EAR: Yes external ears normal MOUTH: tongue normal Eye: COMMON NORMALS: Equal, round and reactive pupils present, EOMs intact bilaterally and conjunctivae normal EYELID: eyelids normal CONJUNCTIVA: Yes conjunctivae normal PUPIL: Yes Equal, round and reactive pupils present Neck/C-Spine: GENERAL: No tracheal deviation Chest: COMMONS NORMALS: normal inspection of the chest CHEST: No tenderness Resp: COMMON NORMALS: clear to auscultation bilaterally EFFORT & INSPECTION: No tachypneic, No respiratory distress, No retractions, No uses accessory muscles and No tracheal deviation AUSCULTATION: clear to auscultation bilaterally, no rhonchi, no wheezes and lung sounds not diminished Cardio: COMMON NORMALS: regular rate and regular rhythm RATE: regular rate RHYTHM: regular rhythm HEART SOUNDS: no murmurs PERIPHERAL PULSES: radial pulses present GI: INSPECTION: No abdominal distension AUSCULTATION: No Hyperactive bowel sounds present and No Hypoactive bowel sounds present PALPATION: No Guarding due to palpation present (GI) and No Rigid due to palpation PERCUSSION: no dullness to percussion and no tympanic to percussion Neuro: SENSORIUM/ORIENTATION: Yes oriented to person, Yes oriented to place and No oriented to time Psych: APPEARANCE: Yes unkempt ATTITUDE: Yes engaged ACTIVITY/MOTOR BEHAVIOR: Yes psychomotor agitation SPEECH: Yes slurred MOOD & AFFECT: Yes depressed mood and Yes anxious THOUGHT PROCESS: disorganized THOUGHT CONTENT: No Suicidality present and No Homicidality present INSIGHT: Fair insight present (Psych) Skin: COMMON NORMALS: no rashes or lesions noted GENERAL SKIN EXAM: no rashes or lesions noted Course Vital Signs: Vital signs: Vital Signs Temperature 98.8 F 09/04/19 20:05 Pulse Rate 68 09/05/19 03:24 Respiratory Rate 18 09/05/19 03:24 Blood Pressure 143/85 09/05/19 03:24 Pulse Oximetry 94 09/05/19 03:24 MDM - Alcohol MDM Narrative: Medical decision making narrative: 29-year-old significantly intoxicated female she is not suicidal or homicidal she simply states that she wants to be off alcohol. She has been told that we are not a detox facility. She was given the option of outpatient detox with Librium, to keep her from drinking until she is able to come off the alcohol. She accepted this. Her family came to get her. Lab Data: Labs: Lab Results 09/04/19 09/04/19 09/04/19 Range/Units 20:54 20:54 21:17 WBC 4.7 (4.0-10.0) 10^3/ uL RBC 4.34 (4.1-5.3) 10^6/u L Hgb 15.0 (11.5-15.3) g/dL Hct 46.0 (37.0-47.0) % MCV 106.0 H (81-99) fL MCH 34.6 H (28.0-34.0) pg MCHC 32.6 (30.0-36.0) g/dL RDW 15.8 H (12.1-15.1) % Plt Count 96 L (130-400) 10^3/c mm MPV 10.7 H (7.4-10.4) fL Neut % (Auto) 31.9 % Lymph % (Auto) 58.5 % [place] % (Auto) 4.3 % Eos % (Auto) 4.0 % Baso % (Auto) 1.1 % Neut # (Auto) 1.5 L (1.8-7.7) 10^3/u L Lymph # (Auto) 2.8 (0.8-4.8) 10^3/u L [place] # (Auto) 0.2 (0.2-0.9) 10^3/u L Eos # (Auto) 0.2 (0.0-0.8) 10^3/u L Baso # (Auto) 0.1 (0.0-0.1) 10^3/u L Nucleated RBC % (a uto) 0 % Nucleated RBCs # 0.0 /100WBC Sodium 145 (136-145) mmol/L Potassium 4.1 (3.5-5.1) mmol/L Chloride 101 (98-107) mmol/L Carbon Dioxide 25 (22-29) mmol/L Anion Gap 23.1 H (5-19) BUN 6 (6-20) mg/dL Creatinine 0.7 (0.5-0.9) mg/dL GFR Calculation 98.3 (90-130) mL/min Glucose 96 (65-115) mg/dL Calculated Osmolal ity 296 H (285-295) mOsm/k g Calcium 8.5 (8.5-10.5) mg/dL Total Bilirubin 0.7 (0.15-1.2) mg/dL AST 225 H (0-32) U/L ALT 99 H (0-33) U/L Alkaline Phosphata se 89 (35-105) IU/L Total Protein 7.4 (6.6-8.7) g/dL Albumin 3.9 (3.5-5.2) g/dL Globulin 3.5 (1.3-4.6) g/dL Lipase 49 (13-60) U/L Urine Color Yellow (Yellow) Urine Appearance Cloudy (CLEAR) Urine pH 5 (5-7) Ur Specific Gravit y 1.020 (1.005-1.030) Urine Protein Trace (Negative) Urine Glucose (UA) Norm (Normal) Urine Ketones 1+ H (Negative) Urine Blood 2+ H (Negative) Urine Nitrate Negative (Negative) Urine Bilirubin 1+ H (NEGATIVE) Urine Urobilinogen 4 H (Negative) mg/dL Ur Leukocyte Louisa ase Trace H (Negative) Urine RBC 0-4 H (0-2) /hpf Urine WBC 5-10 H (0-5) /hpf Ur Squamous Epith Cells 15-25 H (0-5) Amorphous Sediment Not Reportable Urine Bacteria 2+ H (NONE) Urine Mucus Trace Salicylates < 0.3 L (3-10) mg/dL Urine Opiates Scre en (Negative) ng/mL Acetaminophen < 5.0 L (10-30) ug/mL Ur Barbiturates Sc reen (Negative) ng/mL Ur Phencyclidine S crn (Negative) ng/mL Ur Amphetamines Sc reen (Negative) ng/mL U Benzodiazepines Scrn (Negative) ng/mL Urine Cocaine Scre en (Negative) ng/mL U Marijuana (THC) Screen (Negative) ng/mL Ethyl Alcohol 387 H* (0-10) mg/dL 09/04/19 09/05/19 Range/Units 21:17 00:11 WBC (4.0-10.0) 10^3/ uL RBC (4.1-5.3) 10^6/u L Hgb (11.5-15.3) g/dL Hct (37.0-47.0) % MCV (81-99) fL MCH (28.0-34.0) pg MCHC (30.0-36.0) g/dL RDW (12.1-15.1) % Plt Count (130-400) 10^3/c mm MPV (7.4-10.4) fL Neut % (Auto) % Lymph % (Auto) % [place] % (Auto) % Eos % (Auto) % Baso % (Auto) % Neut # (Auto) (1.8-7.7) 10^3/u L Lymph # (Auto) (0.8-4.8) 10^3/u L Rab[place] # (Auto) (0.2-0.9) 10^3/u L Eos # (Auto) (0.0-0.8) 10^3/u L Baso # (Auto) (0.0-0.1) 10^3/u L Nucleated RBC % (a uto) % Nucleated RBCs # /100WBC Sodium (136-145) mmol/L Potassium (3.5-5.1) mmol/L Chloride (98-107) mmol/L Carbon Dioxide (22-29) mmol/L Anion Gap (5-19) BUN (6-20) mg/dL Creatinine (0.5-0.9) mg/dL GFR Calculation (90-130) mL/min Glucose (65-115) mg/dL Calculated Osmolal ity (285-295) mOsm/k g Calcium (8.5-10.5) mg/dL Total Bilirubin (0.15-1.2) mg/dL AST (0-32) U/L ALT (0-33) U/L Alkaline Phosphata se (35-105) IU/L Total Protein (6.6-8.7) g/dL Albumin (3.5-5.2) g/dL Globulin (1.3-4.6) g/dL Lipase (13-60) U/L Urine Color (Yellow) Urine Appearance (CLEAR) Urine pH (5-7) Ur Specific Gravit y (1.005-1.030) Urine Protein (Negative) Urine Glucose (UA) (Normal) Urine Ketones (Negative) Urine Blood (Negative) Urine Nitrate (Negative) Urine Bilirubin (NEGATIVE) Urine Urobilinogen (Negative) mg/dL Ur Leukocyte Louisa ase (Negative) Urine RBC (0-2) /hpf Urine WBC (0-5) /hpf Ur Squamous Epith Cells (0-5) Amorphous Sediment Urine Bacteria (NONE) Urine Mucus Salicylates (3-10) mg/dL Urine Opiates Scre en Negative (Negative) ng/mL Acetaminophen (10-30) ug/mL Ur Barbiturates Sc reen Negative (Negative) ng/mL Ur Phencyclidine S crn Negative (Negative) ng/mL Ur Amphetamines Sc reen Negative (Negative) ng/mL U Benzodiazepines Scrn Positive H (Negative) ng/mL Urine Cocaine Scre en Negative (Negative) ng/mL U Marijuana (THC) Screen Positive H (Negative) ng/mL Ethyl Alcohol 281 H (0-10) mg/dL Discharge Plan Discharge Patient Disposition: Home, Self-Care Clinical Impression: Alcoholic intoxication Qualifiers: Complication of substance-induced condition: uncomplicated Qualified Code(s): F10.920 - Alcohol use, unspecified with intoxication, uncomplicated Condition: Stable Prescriptions: New chlordiazepoxide HCl 5 mg capsule 5 mg PO TID PRN (Reason: withdrawal symptoms) Qty: 7 RF: 0 No Action albuterol sulfate 90 mcg/actuation HFA aerosol inhaler 2 puff INHALATION Q6H PRN (Reason: shortness of breath or wheezing) Qty: 18 RF: 3 Buprenorphine HCI tablet 1 tab sublingual TID RF: 0 budesonide 180 mcg/actuation aerosol powdr breath activated 1 inh INHALATION DAILY Qty: 1 RF: 0 ondansetron HCl 4 mg tablet 4 mg PO Q6H PRN (Reason: nausea and vomiting) Qty: 10 RF: 0 Discharge Orders: Discharge Order (Routine); Ordered 09/05/19 Ordered By: Ray Martinez Referrals: David Villar, DRILLER MULTIPLE SPINDLE-C [Primary Care Provider] - 4-7 days Discharge Diet: Advance as tolerated Discharge Activity: Increase activity as tolerated Patient Instructions: Alcohol Intoxication (ED) Activity Restrictions/Additional Instructions: Use medication only for withdrawal symptoms. Abstain from alcohol Discharge Date/Time: 09/05/19 03:27 Coding Level of Care Code ED Stage Electrician Helper for Bartolo Lund
== END 2019-09-05 03:27 | disposition home or self-care (01) ==
PROVIDERS: Emergency Provider Emergency Medicine; PCP Nurse Practitioner
DX: F10.920 Alcohol use, unspecified with intoxication, uncomplicated (principal); Y90.8 Blood alcohol level of 240 mg/100 ml or more; I10 Essential (primary) hypertension; F17.210 Nicotine dependence, cigarettes, uncomplicated
CPT/HCPCS: 12345; 80053; 80306; 80307; 81001; 83690; 85025; 96361; 96374; 96375; 99283; J1630; J2405; J3411; J7030

== ENCOUNTER 2019-09-08 13:24 | Inpatient (IN) | payer SELFPAY ==
[2019-09-08] VITALS (54 sets, daily range): BP systolic 118–169; BP diastolic 76–117; PULSE 72–124; RESP 7–34; TEMP 36.7–37.2; O2SAT 82–99; BMI 46.3
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
[2019-09-08 14:23] LABS: Basophils % 0.4 %; Eosinophils # 0.2 10^3/uL (0.0-0.8); Eosinophils % 3.5 %; Hematocrit 44.6 % (37.0-47.0); Hemoglobin 15.1 g/dL (11.5-15.3); Lymphocytes # 2.2 10^3/uL (0.8-4.8); Lymphocytes % 45.7 %; Mean Corpuscular HGB Conc 33.9 g/dL (30.0-36.0); Mean Corpuscular Hemoglobin 35.4 pg (28.0-34.0); Mean Corpuscular Volume 104.4 fL (81-99); Monocytes # 0.2 10^3/uL (0.2-0.9); Monocytes % 3.7 %; Neutrophils # 2.3 10^3/uL (1.8-7.7); Neutrophils % 46.5 %; Nucleated Red Blood Cells % 0 %; Platelet Count 80 10^3/cmm (130-400); Red Blood Count 4.27 10^6/uL (4.1-5.3); Red Cell Distribution Width 15.8 % (12.1-15.1); White Blood Count 4.9 10^3/uL (4.0-10.0)
[2019-09-08 14:45] LABS: Slide Review Slide Review Perform
[2019-09-08] MEDS: LORazepam 2 mg/mL INJ 1 mL 1 MG IVP (14:45)
[2019-09-08 14:47] LABS: Alanine Aminotransferase 101 U/L (0-33); Albumin Level 4.3 g/dL (3.5-5.2); Alkaline Phosphatase 93 IU/L (35-105); Anion Gap 22.6 (5-19); Aspartate Amino Transferase 287 U/L (0-32); Blood Urea Nitrogen 4 mg/dL (6-20); Calcium 8.7 mg/dL (8.5-10.5); Carbon Dioxide 24 mmol/L (22-29); Chloride 101 mmol/L (98-107); Globulin 3.1 g/dL (1.3-4.6); Glomerular Filtration Rate 117.4 mL/min (90-130); Glucose 98 mg/dL (65-115); Osmolality Calculated 294 mOsm/kg (285-295); Potassium 3.6 mmol/L (3.5-5.1); Sodium 144 mmol/L (136-145); Thyroid Stimulating Hormone 0.65 uIU/mL (0.27-4.20); Total Bilirubin 1.1 mg/dL (0.15-1.2); Total Protein 7.4 g/dL (6.6-8.7)
[2019-09-08] MEDS: buprenorphine-naloxone 4-1 mg Film 1 EACH SUBLINGUAL (14:52)
[2019-09-08 14:54] LABS: Acetaminophen < 5.0 ug/mL (10-30); Salicylate < 0.3 mg/dL (3-10)
[2019-09-08 14:56] LABS: Alcohol Level 393 mg/dL (0-10)
[2019-09-08 16:00] LABS: Add Urine Microscopic? NO
[2019-09-08 16:02] LABS: Bilirubin Urine 1+ (NEGATIVE); Blood Urine Neg (Negative); Glucose Urine UA Norm (Normal); Ketones Urine Negative (Negative); Leukocyte Esterase Urine Negative (Negative); Nitrate Urine Negative (Negative); Protein Urine Neg (Negative); Specific Gravity, Urine 1.015 (1.005-1.030); Urine Appearance Clear (CLEAR); Urine Color Orange (Yellow); Urobilinogen Urine 8 mg/dL (Negative)
[2019-09-08 16:06] LABS: HCG Qualitative Urine. Negative (Negative)
[2019-09-08 16:25] LABS: Amphetamines Screen Urine Negative (Negative); Barbiturates Screen Urine Negative (Negative); Benzodiazepines Screen Urine Negative (Negative); Cocaine Screen Urine Negative (Negative); Opiate Screen Urine Negative (Negative); PCP Screen Urine Negative (Negative); THC Screen Urine Positive (Negative)
[2019-09-08] MEDS: sodium chloride 0.9% 1,000 ML 100 ML IV ×2 (17:08→21:10)
[2019-09-08] MEDS: LORazepam 1 mg Tablet PO (17:08)
[2019-09-08] MEDS: ondansetron 2 mg/ML SDV 2 mL 4 MG IVP (17:09)
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
--- NOTE | 2019-09-08 18:49 | PC.NURSE ---
attempted to [facility] report to ICU and they refused report stating they were in report and she has a sitter
--- NOTE | 2019-09-08 19:12 | PC.NURSE ---
attempted to call ICU for report, was informed the pt's RN would not be available for report and no other RN is available for report
[2019-09-08] MEDS: LORazepam 2 mg/mL INJ 1 mL IVP (23:38)
[2019-09-09] VITALS (67 sets, daily range): BP systolic 111–177; BP diastolic 79–134; PULSE 74–133; RESP 10–27; TEMP 36.9–37.2; O2SAT 88–99
--- NOTE | 2019-09-09 00:38 | PC.NURSE ---
patient is becomming more agitated and started to become slightly diaphoretic. ativan given ivp. patiient is resting comfortably at this time will continue CIWA.
[2019-09-09] MEDS: albuterol 8 gm MDI 2 PUFF INHALATION (02:21)
[2019-09-09] MEDS: LORazepam 2 mg/mL INJ 1 mL IVP ×6 (03:32→23:04)
[2019-09-09] MEDS: ondansetron 2 mg/ML SDV 2 mL 4 MG IVP ×2 (07:58→17:00)
[2019-09-09] MEDS: multivitamin therapeutic Tablet 1 TAB PO (07:59)
[2019-09-09] MEDS: thiamine 100 mg Tablet PO (07:59)
[2019-09-09] MEDS: folic acid 1 mg Tablet PO (07:59)
[2019-09-09 11:25] LABS: Basophils % 0.3 %; Eosinophils % 1.3 %; Hemoglobin 13.5 g/dL (11.5-15.3); Lymphocytes # 0.8 10^3/uL (0.8-4.8); Lymphocytes % 25.6 %; Mean Corpuscular HGB Conc 32.1 g/dL (30.0-36.0); Mean Corpuscular Hemoglobin 34.9 pg (28.0-34.0); Mean Corpuscular Volume 108.5 fL (81-99); Mean Platelet Volume 9.7 fL (7.4-10.4); Monocytes # 0.2 10^3/uL (0.2-0.9); Monocytes % 5.8 %; Neutrophils # 2.1 10^3/uL (1.8-7.7); Neutrophils % 66.7 %; Nucleated Red Blood Cells % 0 %; Platelet Count 47 10^3/cmm (130-400); Red Blood Count 3.87 10^6/uL (4.1-5.3); Red Cell Distribution Width 15.3 % (12.1-15.1); White Blood Count 3.1 10^3/uL (4.0-10.0)
[2019-09-09 11:58] LABS: Alanine Aminotransferase 72 U/L (0-33); Albumin Level 3.5 g/dL (3.5-5.2); Alkaline Phosphatase 81 IU/L (35-105); Anion Gap 15.9 (5-19); Aspartate Amino Transferase 145 U/L (0-32); Blood Urea Nitrogen 4 mg/dL (6-20); Calcium 8.1 mg/dL (8.5-10.5); Carbon Dioxide 29 mmol/L (22-29); Chloride 99 mmol/L (98-107); Globulin 3.6 g/dL (1.3-4.6); Glomerular Filtration Rate 117.4 mL/min (90-130); Glucose 96 mg/dL (65-115); Osmolality Calculated 286 mOsm/kg (285-295); Potassium 3.9 mmol/L (3.5-5.1); Sodium 140 mmol/L (136-145); Total Bilirubin 1.6 mg/dL (0.15-1.2); Total Protein 7.1 g/dL (6.6-8.7)
[2019-09-09 12:12] LABS: Vitamin B12 230 pg/mL (232-1245)
[2019-09-09] MEDS: sodium chloride 0.9% 1,000 ML 100 ML IV ×2 (13:14→22:06)
--- NOTE | 2019-09-09 17:54 | P.PN_ITS ---
Subjective Subjective: Interval history: Symptomatically better, to continues to have nausea and vomiting. No further abdominal pain. Has required Ativan twice during the day today. Medications: Reviewed: Yes Vitals/I&O/Wt Last Vital Signs Temp 98.9 F 09/09/19 12:00 Pulse 84 09/09/19 14:00 Resp 19 H 09/09/19 14:00 BP 166/101 09/09/19 14:00 Pulse Ox 99 09/09/19 14:00 09/09/19 09/09/19 09/09/19 06:59 14:59 22:59 Intake Total 480 / 5275.761 9114 / 1356 Output Total 300 / 300 Balance 180 / 7847.777 0765 / 1356 Weight last 48 hrs Weight 122.47 kg Physical Exam Narrative: EXAM NARRATIVE: GEN: Awake, alert and oriented, no acute distress , alcohol and vomitus smell+, disheveled apperance CVS: S1S2 N RS: CTA B/L Abd: Soft, non distended,bs+ , nontender to palpation t AUTOMATIC CAR WASH ATTENDANT: no focal neuro deficits Data : 09/09/19 10:56 09/09/19 10:56 A&P Assessment and plan (1) Alcoholic intoxication: Status: Acute Qualifiers: Complication of substance-induced condition: uncomplicated Qualified Code(s): F10.920 - Alcohol use, unspecified with intoxication, uncomplicated (2) Thrombocytopenia: Status: Acute Additional A&P Information Patient admitted yesterday with acute alcohol intoxication, today noted to have some subtle signs of withdrawal requiring Ativan twice. She continues to complain of some nausea vomiting. Abdominal pain is resolved. Overall she continues to feel weak to grossly improved over yesterday. Transfer out of ICU to regular floors today. Check CIWA score every 4 hours, PRN Ativan per CIWA protocol IV fluid hydration with normal saline at 100 cc/h, added thiamine and folate, multivitamins. Transaminitis continues to persist, however downtrending at this present time. Most likely related to alcoholic hepatitis. T bili slightly up at 1.6. Right upper quadrant imaging will be ordered. Hepatitis panel was unable to be drawn this morning. Of note from a year ago she has positive surface antibodies so ho pefully protected against hepatitis B. HIV testing is also pending. Noted thrombocytopenia, gradually trending down since early August along with macrocytic picture of RBCs on differential, may be developing a B12 deficiency. B12 levels obtained and at borderline low to 30. Will treat now with 1000 mcg of IM B12 as platelet count is lower. Low platelet count may also be related to splenomegaly or development of portal hypertension. Will assess for both of those with an ultrasound. Again denies today any suicidal ideation. She is afraid she was going to by drinking excessive amounts of alcohol or other as a result of withdrawal. Noted to have high blood pressure going up to systolic of 160, will add amlodipine 5 mg daily and assess for response. Full code DVT ppx: SCDs given thrombocytopenia Attestations Medical Necessity Statement*: Needs inpatient admission for alcohol withdrawal Coding Level of Care Code Acute Salmon Gillnet Vessel Operator for [facility] Diagnoses Alcoholic intoxication F10.920 Complication of substance-induced condition: uncomplicated Thrombocytopenia D69.6
[2019-09-09] MEDS: cyanocobalamin 1,000 mcg/mL SDV 1000 MCG IM (20:16)
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
[2019-09-10 01:05] VITALS: BP 144/91; PULSE 68; RESP 20; TEMP 36.9; O2SAT 94
[2019-09-10] MEDS: buprenorphine-naloxone 4-1 mg Film 2 EACH SUBLINGUAL (01:30)
[2019-09-10 03:11] LABS: Vitamin B12 219 pg/mL (232-1245)
[2019-09-10 03:56] LABS: Hepatitis A Antibody IgM Non-Reactive (Nonreactive); Hepatitis B Core AB, Total Non-Reactive (Nonreactive); Hepatitis B Surface AB 348.5 (0-8.5); Hepatitis B Surface Antigen Non-Reactive (Nonreactive); Hepatitis C Virus Antibody Reactive (Nonreactive)
[2019-09-10 04:04] LABS: Folate Level 8.1 ng/mL (4.8-37.3)
[2019-09-10 05:00] VITALS: BP 141/91; PULSE 76; RESP 18; TEMP 36.9; O2SAT 90
[2019-09-10 05:41] LABS: Basophils % 0.4 %; Eosinophils # 0.1 10^3/uL (0.0-0.8); Eosinophils % 1.9 %; Hematocrit 40.1 % (37.0-47.0); Hemoglobin 13.3 g/dL (11.5-15.3); Lymphocytes # 0.9 10^3/uL (0.8-4.8); Lymphocytes % 35.5 %; Mean Corpuscular HGB Conc 33.2 g/dL (30.0-36.0); Mean Corpuscular Hemoglobin 34.5 pg (28.0-34.0); Mean Corpuscular Volume 104.2 fL (81-99); Mean Platelet Volume 11.2 fL (7.4-10.4); Monocytes # 0.2 10^3/uL (0.2-0.9); Monocytes % 6.8 %; Neutrophils # 1.5 10^3/uL (1.8-7.7); Neutrophils % 55.4 %; Nucleated Red Blood Cells % 0 %; Platelet Count 52 10^3/cmm (130-400); Red Blood Count 3.85 10^6/uL (4.1-5.3); Red Cell Distribution Width 14.9 % (12.1-15.1); White Blood Count 2.7 10^3/uL (4.0-10.0)
[2019-09-10 05:49] LABS: Lipase 49 U/L (13-60)
[2019-09-10 06:30] LABS: HIV 1 & 2 Antibody Non-Reactive (Non-Reactiv); HIV 1 & 2 Antigen Non-Reactive (Non-Reactiv)
[2019-09-10 07:30] VITALS: BP 138/89; PULSE 75; RESP 16; TEMP 36.6; O2SAT 96
[2019-09-10] MEDS: amlodipine 5 mg Tablet PO (08:35)
[2019-09-10] MEDS: ondansetron 2 mg/ML SDV 2 mL 4 MG IVP (08:35)
[2019-09-10] MEDS: thiamine 100 mg Tablet PO (08:35)
[2019-09-10] MEDS: folic acid 1 mg Tablet PO (08:35)
[2019-09-10] MEDS: multivitamin therapeutic Tablet 1 TAB PO (08:35)
[2019-09-10 09:35] VITALS: PULSE 89; RESP 18; O2SAT 96
[2019-09-10 11:26] VITALS: BP 147/93; PULSE 75; RESP 16; TEMP 37.1; O2SAT 93
--- NOTE | 2019-09-10 12:55 | PC.NURSE ---
Patient states she is going home. She wanted Ativan this morning saying she felt restless and was having bad dreams, was having withdrawal from all the alcohol she had consumed. I said she wanted to be knocked out so she could sleep.
--- NOTE | 2019-09-10 13:14 | PC.NURSE ---
Patient leaving AMA. Patient is awake and alert. She said she wants to leave so she can smoke. Notified Dr. Cooper. PIID to her left wrist removed, intact pressure dressing applied.
[2019-09-10 13:23] VITALS: BP 147/93; PULSE 75; RESP 16; TEMP 37.1; O2SAT 93
--- NOTE | 2019-09-10 17:37 | PM.DCS ---
Discharge Providers Date of Admission: 09/08/19 16:01 Date of Discharge: September 10, 2019 Attending Provider at Admission: Monica Cooper MD Attending Provider at Discharge: Monica Cooper MD Primary Care Provider: VIRGINIA Choudhary Diagnoses at Discharge Discharge Diagnosis (1) Alcoholic intoxication: Status: Acute Qualifiers: Complication of substance-induced condition: uncomplicated Qualified Code(s): F10.920 - Alcohol use, unspecified with intoxication, uncomplicated (2) Thrombocytopenia: Status: Acute Reason for Visit Reason for Visit: INTOXICATION Hospital Course Discharge Summary: Patient admitted on 09/07 with acute alcohol intoxication, and then going through alcohol withdrawal during course of admission for which she was monitored with CIWA score every 4 hours, PRN Ativan. IV fluid hydration with normal saline at 100 cc/h, added thiamine and folate, multivitamins. She was also noted to have transaminitis and pancytopenia, high blood pressure. She was undergoing evaluation for the above, however today elected to leave AMA prior to being seen. Noted b12 deficiency for which she received 1000mcg b12 im x 1 Physical Exam Narrative: EXAM NARRATIVE: not seen as left prior to round Discharge Data Data Completed and Pending: Completed Studies During Hospitalization Category Date Time Status US abdomen comple te* [id number] Routine Ultrasound 09/10/19 17:58 Completed Labs from last 24 hours 09/10/19 09/09/19 09/09/19 04:40 17:14 17:14 WBC 2.7 L RBC 3.85 L Hgb 13.3 Hct 40.1 MCV 104.2 H MCH 34.5 H MCHC 33.2 RDW 14.9 Plt Count 52 L MPV 11.2 H Neut % (Auto) 55.4 Lymph % (Auto) 35.5 [place] % (Auto) 6.8 Eos % (Auto) 1.9 Baso % (Auto) 0.4 Neut # (Auto) 1.5 L Lymph # (Auto) 0.9 [place] # (Auto) 0.2 Eos # (Auto) 0.1 Baso # (Auto) 0.0 Nucleated RBC % (a uto) 0 Nucleated RBCs # 0.0 Lipase Vitamin B12 Folate 8.1 Hepatitis A IgM Ab Hep Bs Antigen Hep Bs Antibody Hep B Core Total A b Hepatitis C Antibo dy HIV 1&2 Ab & HIV 1 Ag Non-reactive HIV 1&2 Antibody Non-reactive 09/09/19 09/09/19 09/09/19 17:14 17:10 10:56 WBC RBC Hgb Hct MCV MCH MCHC RDW Plt Count MPV Neut % (Auto) Lymph % (Auto) [place] % (Auto) Eos % (Auto) Baso % (Auto) Neut # (Auto) Lymph # (Auto) [place] # (Auto) Eos # (Auto) Baso # (Auto) Nucleated RBC % (a uto) Nucleated RBCs # Lipase 49 Vitamin B12 219 L Folate Hepatitis A IgM Ab Non-reactive Hep Bs Antigen Non-reactive Hep Bs Antibody 348.5 H Hep B Core Total A b Non-reactive Hepatitis C Antibo dy Reactive H HIV 1&2 Ab & HIV 1 Ag HIV 1&2 Antibody Vitals: Last Vital Signs Temp 98.8 F 09/10/19 13:23 Pulse 75 09/10/19 13:23 Resp 16 09/10/19 13:23 BP 147/93 09/10/19 13:23 Pulse Ox 93 09/10/19 13:23 Discharge Plan Discharge Patient Disposition: Left Against Medical Advice Condition: Stable Prescriptions: No Action albuterol sulfate 90 mcg/actuation HFA aerosol inhaler 2 puff INHALATION Q6H PRN (Reason: shortness of breath or wheezing) Qty: 18 RF: 3 Buprenorphine HCI tablet 1 tab sublingual TID RF: 0 budesonide 180 mcg/actuation aerosol powdr breath activated 1 inh INHALATION DAILY Qty: 1 RF: 0 ondansetron HCl 4 mg tablet 4 mg PO Q6H PRN (Reason: nausea and vomiting) Qty: 10 RF: 0 chlordiazepoxide HCl 5 mg capsule 5 mg PO TID PRN (Reason: withdrawal symptoms) Qty: 7 RF: 0 Tylenol 325 mg Tablet 325 mg PO QID PRN (Reason: Pain) RF: 0 ibuprofen 200 mg Tablet 200 mg PO Q6H PRN (Reason: Pain) RF: 0 Referrals: [facility] [Outside] - 1-3 days (Follow up for walk in assessment to be linked with outpatient mental health treatment) [facility] [Outside] - 1-3 days (Resource for substance abuse treatment, offers both inpatient and outpatient services.) Discharge Date/Time: 09/10/19 13:24 Discharge Attestations Time Spent in Discharge Care*: less than 30 min Quality Metrics Clinical Quality Measures During this hospital stay, did patient experience: None Coding Level of Care Code Acute Dog Boarder for g Fwd Diagnoses Alcoholic intoxication F10.920 Complication of substance-induced condition: uncomplicated Thrombocytopenia D69.6
--- NOTE | 2019-09-10 17:58 | US_ITS ---
WS: [id number] ULTRASOUND ABDOMEN CLINICAL INFORMATION: transaminitis, rising T.bili COMPARISON: None. FINDINGS: Liver Size: Enlarged Craniocaudal length: 19.0 cm. Echogenicity: Coarse fatty Surface nodularity: None. Mass (size and location): None. Bile ducts Intrahepatic ducts: Normal. Common bile duct diameter: 0.8 cm. Gallbladder Removed Pancreas Normal as visualized. Spleen Splenomegaly: None. Craniocaudal length: 10.3 cm. Right kidney: Normal. Hydronephrosis: None. Size: 11.4 cm x 4.6 cm x 4.9 cm Left kidney: Normal. Hydronephrosis: None. Size: 10.8 cm x 5.3 cm x 4.9 cm. Abdominal aorta and IVC Visualized portions are normal. Ascites: None. US/US abdomen complete* [id number] IMPRESSION: 1. Hepatomegaly with diffuse fatty infiltration. 2. Gallbladder has been removed. 3. No hydronephrosis right kidney.
== END 2019-09-10 13:24 | disposition left against medical advice (07) | DRG 894 ==
LOC: ER 13:55 → ICU 17:19 → MEDSURG 09-09 20:32
PROVIDERS: Admitting Provider Student in an Organized Health Care Education/Training Program; Emergency Provider Emergency Medicine; PCP Nurse Practitioner; Visit Provider Student in an Organized Health Care Education/Training Program
DX: F10.229 Alcohol dependence with intoxication, unspecified (principal); F33.1 Major depressive disorder, recurrent, moderate; Y90.8 Blood alcohol level of 240 mg/100 ml or more; F10.239 Alcohol dependence with withdrawal, unspecified; F41.1 Generalized anxiety disorder; E28.2 Polycystic ovarian syndrome; Z53.21 Procedure and treatment not carried out due to patient leaving prior to being seen by health care provider; E03.9 Hypothyroidism, unspecified; I10 Essential (primary) hypertension; M79.7 Fibromyalgia; F17.210 Nicotine dependence, cigarettes, uncomplicated; D69.6 Thrombocytopenia, unspecified
CPT/HCPCS: 12345; 36415; 76700; 80053; 80306; 80307; 81003; 81025; 82607; 82746; 83690; 84443; 85025; 86705; 86706; 86709; 86803; 87340; 87806; 94640; 96372; 96375; 99285; J0573; J2060; J2405; J3420; J3535; J7030

== ENCOUNTER 2019-09-16 22:51 | Inpatient (IN) | payer SELFPAY ==
[2019-09-16 22:56] VITALS: BP 171/139; PULSE 88; RESP 20; O2SAT 99; BMI 48.0
--- NOTE | 2019-09-16 23:09 | W.ED.GENADLT ---
HPI - General Adult General: Chief complaint: General Medical Stated complaint: etoh Time Seen by Provider: 09/16/19 22:56 History of Present Illness: HPI narrative: Patient is a 29-year-old female who comes to the ED for alcohol withdrawal symptoms and wanting to detox. Patient has a past medical history of alcohol abuse. Patient states that for the past year she has been drinking close to half gallon to a gallon of vodka daily. The last 24 hours she tried to slow down her drinking and thinks she is ready experiencing some withdrawal symptoms. She describes being anxious, bilateral hand tremors, nauseous/vomiting. Patient's last drink was approximately 3 to 4 hours ago and was close to half pint of vodka. In the last 2 days she did have an episode where she passed out and woke up on the floor and was unsure of what happened. Patient states that she is worried that if she does not get help she will unintentionally drink herself to . Patient says that in the past when she is detox she has had seizures. She does state that she felt suicidal earlier today and often thinks about suicide after a traumatic experience several months ago. Patient admits to being a tobacco smoker and occasional marijuana use. Associated symptoms: Deny chest pain, dyspnea, headache(s), nausea, rash, palpitations or vomiting Review of Systems Const: Denies: fever(s), chills or fatigue Eyes: Denies: change in vision or eye discomfort ENMT: Denies: throat pain, odynophagia, nasal discharge or nasal congestion Card: Denies: chest pain, palpitations, edema, swelling of feet/ankles, dyspnea on exertion or orthopnea Resp: Denies: dyspnea, productive cough or non-productive cough GI: Denies: abdominal pain, nausea, vomiting, diarrhea, constipation or hematochezia : Denies: flank pain, dysuria or hematuria Musc: Denies: neck pain, back pain or extremity swelling Skin/Breast: Denies: rash or new lesions Neuro: Reports: involuntary movements (Tremors in hands bilaterally.); Denies: headache(s), numbness in extremities or weakness in extremities Psych: Reports: anxiety, suicidal ideation and other (Alcohol withdrawal) [facility] PFSH: Medical History Abscess of forearm, right Acquired hypothyroidism Allergic rhinitis, unspecified Elevated ALT measurement Essential (primary) hypertension Family history of alpha 1 antitrypsin deficiency Fibromyalgia Generalized anxiety disorder H/O drug abuse Hx of abscess of skin and subcutaneous tissue Intravenous drug user Major depressive disorder, recurrent, moderate Nontoxic thyroid nodule Other constipation Polycystic ovarian syndrome Unspecified abdominal pain Unspecified asthma, uncomplicated Surgical History Hx of cholecystectomy Family History Other Drug abuse, amphetamine type Hypertension Social History Smoking and tobacco status: current every day smoker cigarettes Packs smoked per day: 1.5 Years cigarettes smoked: 15 Quit status (tobacco): considering quitting Smoking risk assessment/counseling performed?: Yes Alcohol intake: current Alcohol intake frequency: 3 or more drinks per day Alcohol type: hard liquor Last alcohol use date: 03/11/19 Last substance use date: 04/23/18 Lives independently: Yes Household members: family Marital status: Single Current occupational status: employed History of recent travel: No Current gender identity: Female Female Reproductive History: Date of last menstrual period: 08/24/19 Para: 2 Physical Exam Narrative: EXAM NARRATIVE: Patient is a 29-year-old female who is sitting comfortably on exam bed when I enter the room. She does not appear to be in any acute distress or pain. No noticeable tremors in extremities. Const: COMMON NORMALS: no acute distress, patient oriented x3 and alert GENERAL APPEARANCE: cooperative, comfortable and anxious NUTRITIONAL APPEARANCE: obese HENMT: COMMON NORMALS: normocephalic HEAD & SCALP: normocephalic MOUTH: Normal oral and palatal mucosa present THROAT: posterior oropharynx normal and uvula midline Eye: COMMON NORMALS: Equal, round and reactive pupils present, EOMs intact bilaterally and normal visual kowalski by confrontation PUPIL: Yes Equal, round and reactive pupils present Neck/C-Spine: COMMON NORMALS: supple GENERAL: Yes normal visual inspection Resp: COMMON NORMALS: normal respiratory effort, No retractions, No use of accessory muscles and clear to auscultation bilaterally AUSCULTATION: clear to auscultation bilaterally Cardio: COMMON NORMALS: regular rate, regular rhythm, S1 normal heart sound present, S2 normal heart sound present, No gallops present (Cardio), No clicks present (Cardio), No murmurs present (Cardio) and Peripheral pulses 2+ throughout RATE: regular rate RHYTHM: regular rhythm HEART SOUNDS: S1 normal heart sound present and S2 normal heart sound present PERIPHERAL PULSES: Peripheral pulses 2+ throughout GI: COMMON NORMALS: Normal to inspection, nondistended, normoactive bowel sounds present, Soft to palpation, non-tender and no masses INSPECTION: Yes central obesity PALPATION: Yes Soft to palpation : COMMON NORMALS: Yes no CVA tenderness BLADDER/KIDNEY EXAM: Yes no CVA tenderness Back/Pelvis: COMMON NORMALS: no CVA tenderness Neuro: COMMON NORMALS: patient oriented x3, CN's II-XII intact bilaterally, moves all extremities, no focal motor deficits and no sensory deficits noted SENSORIUM/ORIENTATION: Yes alert COORDINATION/BALANCE: [id number] test normal and [id number] test normal SENSORY EXAM: Yes extremities (intact) MOTOR EXAM: 5/5 motor strength present throughout and No Tremors during motor activity present COORDINATION: [id number] test normal and [id number] test normal Psych: COMMON NORMALS: mental status grossly normal, cooperative, normal affect and speech normal APPEARANCE: Yes grossly normal ATTITUDE: Yes engaged ACTIVITY/MOTOR BEHAVIOR: Yes appropriate eye contact SPEECH: Yes normal speech MOOD & AFFECT: Yes anxious THOUGHT CONTENT: Yes Suicidality present (Expressed that she has thought about suicide earlier today.) ATTENTION/CONCENTRATION: Yes attention grossly intact and Yes concentration grossly intact MEMORY/COGNITION: Yes memory grossly intact INSIGHT: Fair insight present (Psych) JUDGEMENT: Fair judgement present (Psych) Skin: COMMON NORMALS: no rashes or lesions noted GENERAL SKIN EXAM: no rashes or lesions noted and dry skin Course Consultations: Consultation #1: I spoke with Dr. Barboza about patient's thoughts of suicide and alcohol use and withdrawal. Dr. Barboza and said admit patient to [facility]PU with [facility] protocol. Vital Signs: Vital signs: Vital Signs Pulse Rate 88 09/16/19 22:56 Respiratory Rate 20 H 09/16/19 22:56 Blood Pressure 171/139 09/16/19 22:56 Pulse Oximetry 99 09/16/19 22:56 MDM - General Adult MDM Narrative: Medical decision making narrative: Patient is a 29-year-old female comes to the ED with alcohol withdrawal and SI. She is currently complaining of some nausea/vomiting, tremors. Patient also stated that she was suicidal earlier today. Physical exam showed an anxious patient with no visible tremor seen. Patient did express her thoughts of suicide earlier today and expressed that she is thought of suicide more frequently since her she had a traumatic experience several months ago. Patient's alcohol level was in normal range. All other labs were unremarkable. I contacted Dr. Barboza and told him about patient's case and he advised to admit patient to NPU on [facility] protocol. While here on the unit patient got IV fluids and banana bag and a dose of Ativan. I talked with Dr. Haskins about patient case and he will be placing admission orders. Patient understood and agreed with the plan and was glad to be admitted. Lab Data: Attestation: I reviewed the patient's lab results. Labs: Lab Results 09/16/19 09/16/19 09/16/19 Range/Units 23:41 23:41 23:41 WBC 5.9 (4.0-10.0) 10^3/ uL RBC 4.13 (4.1-5.3) 10^6/u L Hgb 14.5 (11.5-15.3) g/dL Hct 44.2 (37.0-47.0) % MCV 107.0 H (81-99) fL MCH 35.1 H (28.0-34.0) pg MCHC 32.8 (30.0-36.0) g/dL RDW 15.0 (12.1-15.1) % Plt Count 174 (130-400) 10^3/c mm MPV 10.1 (7.4-10.4) fL Neut % (Auto) 59.2 % Lymph % (Auto) 28.1 % [place] % (Auto) 9.2 % Eos % (Auto) 2.5 % Baso % (Auto) 0.7 % Neut # (Auto) 3.49 (1.8-7.7) 10^3/u L Lymph # (Auto) 1.7 (0.8-4.8) 10^3/u L [place] # (Auto) 0.5 (0.2-0.9) 10^3/u L Eos # (Auto) 0.2 (0.0-0.8) 10^3/u L Baso # (Auto) 0.0 (0.0-0.1) 10^3/u L Nucleated RBC % (a uto) 0 % Nucleated RBCs # 0.0 /100WBC Sodium 138 (136-145) mmol/L Potassium 3.7 (3.5-5.1) mmol/L Chloride 100 (98-107) mmol/L Carbon Dioxide 28 (22-29) mmol/L Anion Gap 13.7 (5-19) BUN 5 L (6-20) mg/dL Creatinine 0.7 (0.5-0.9) mg/dL GFR Calculation 98.3 (90-130) mL/min Glucose 97 (65-115) mg/dL Calculated Osmolal ity 282 L (285-295) mOsm/k g Calcium 9.5 (8.5-10.5) mg/dL Total Bilirubin 0.9 (0.15-1.2) mg/dL AST 64 H (0-32) U/L ALT 50 H (0-33) U/L Alkaline Phosphata se 71 (35-105) IU/L Total Protein 7.9 (6.6-8.7) g/dL Albumin 4.4 (3.5-5.2) g/dL Globulin 3.5 (1.3-4.6) g/dL HCG, Qual Negative (Negative) Urine Color (Yellow) Urine Appearance (CLEAR) Urine pH (5-7) Ur Specific Gravit y (1.005-1.030) Urine Protein (Negative) Urine Glucose (UA) (Normal) Urine Ketones (Negative) Urine Blood (Negative) Urine Nitrate (Negative) Urine Bilirubin (NEGATIVE) Urine Urobilinogen (Negative) mg/dL Ur Leukocyte Louisa ase (Negative) Urine RBC (0-2) /hpf Urine WBC (0-5) /hpf Ur Squamous Epith Cells (0-5) Amorphous Sediment Urine Bacteria (NONE) Urine Mucus Salicylates < 0.3 L (3-10) mg/dL Acetaminophen < 5.0 L (10-30) ug/mL Ethyl Alcohol < 10 (0-10) mg/dL 09/16/19 Range/Units 23:45 WBC (4.0-10.0) 10^3/ uL RBC (4.1-5.3) 10^6/u L Hgb (11.5-15.3) g/dL Hct (37.0-47.0) % MCV (81-99) fL MCH (28.0-34.0) pg MCHC (30.0-36.0) g/dL RDW (12.1-15.1) % Plt Count (130-400) 10^3/c mm MPV (7.4-10.4) fL Neut % (Auto) % Lymph % (Auto) % [place] % (Auto) % Eos % (Auto) % Baso % (Auto) % Neut # (Auto) (1.8-7.7) 10^3/u L Lymph # (Auto) (0.8-4.8) 10^3/u L [place] # (Auto) (0.2-0.9) 10^3/u L Eos # (Auto) (0.0-0.8) 10^3/u L Baso # (Auto) (0.0-0.1) 10^3/u L Nucleated RBC % (a uto) % Nucleated RBCs # /100WBC Sodium (136-145) mmol/L Potassium (3.5-5.1) mmol/L Chloride (98-107) mmol/L Carbon Dioxide (22-29) mmol/L Anion Gap (5-19) BUN (6-20) mg/dL Creatinine (0.5-0.9) mg/dL GFR Calculation (90-130) mL/min Glucose (65-115) mg/dL Calculated Osmolal ity (285-295) mOsm/k g Calcium (8.5-10.5) mg/dL Total Bilirubin (0.15-1.2) mg/dL AST (0-32) U/L ALT (0-33) U/L Alkaline Phosphata se (35-105) IU/L Total Protein (6.6-8.7) g/dL Albumin (3.5-5.2) g/dL Globulin (1.3-4.6) g/dL HCG, Qual (Negative) Urine Color Dark yellow (Yellow) Urine Appearance Cloudy (CLEAR) Urine pH 6 (5-7) Ur Specific Gravit y 1.010 (1.005-1.030) Urine Protein Neg (Negative) Urine Glucose (UA) Norm (Normal) Urine Ketones Negative (Negative) Urine Blood Neg (Negative) Urine Nitrate Negative (Negative) Urine Bilirubin 1+ H (NEGATIVE) Urine Urobilinogen 4 H (Negative) mg/dL Ur Leukocyte Louisa ase Trace H (Negative) Urine RBC 0-4 H (0-2) /hpf Urine WBC 10-15 H (0-5) /hpf Ur Squamous Epith Cells 15-25 H (0-5) Amorphous Sediment Not Reportable Urine Bacteria 1+ H (NONE) Urine Mucus 2+ Salicylates (3-10) mg/dL Acetaminophen (10-30) ug/mL Ethyl Alcohol (0-10) mg/dL Imaging Data^: CT Head: Attestation: I personally reviewed and interpreted this imaging study as follows: Radiologist's impression: [address] [address] [address] Scan Report Signed Patient: Wendy De La Cruz Unit #: [id number] : 1990 Age/Sex: 29 / F ADM Date: 09/16/19 Loc: ER Room/Bed: Attending Dr: Ordering Provider/Ordering MD: Mayo Patel Date of Service: 09/16/19 Procedure(s): CT head wo con* [id number] Accession Number(s): [id number] Report Number: [id number] PROCEDURE INFORMATION: Exam: CT Head Without Contrast Exam date and time: 09/16/2019 11:19 PM Age: 29 years old Clinical indication: Injury or trauma; Fall; Initial encounter; Blunt trauma (contusions or hematomas); Consciousness not specified; Additional info: Alcohol intoxication passed out woke up on the floor. TECHNIQUE: Imaging protocol: Computed tomography of the head without contrast. Radiation optimization: All CT scans at this facility use at least one of these dose optimization techniques: automated exposure control; mA and/or kV adjustment per patient size (includes targeted exams where dose is matched to clinical indication); or iterative reconstruction. COMPARISON: CT head wo con* [id number] 10/07/2017 9:50 PM RADIATION DOSE METRICS: Total DLP (mGy-cm): 791.03 FINDINGS: Brain: Normal. No hemorrhage. Unremarkable white matter. No mass effect. Ventricles: Normal. No ventriculomegaly. Bones/joints: Unremarkable. No acute fracture. Sinuses: The fluid and mucosal thickening is seen within the left ethmoidal sinuses and left sphenoidal sinus. Mastoid air cells: Visualized mastoid air cells are well aerated. Soft tissues: Unremarkable. CT/CT head wo con* [id number] IMPRESSION: There are no acute intracranial findings. Radiation Dose CTDIVOL = (mGy): DLP = 791.03 (mGy-cm) Dictated By: Michael Canas MD Signed By: Michael Canas MD Signed Date/Time: 09/17/1921 DD/ Discharge Plan Discharge Admit Provider: Jon Barboza Condition: Stable Coding Level of Care Code ED General Administrator for Chg Fwd Exam Comprehensive
--- NOTE | 2019-09-16 23:18 | CTR_ITS ---
PROCEDURE INFORMATION: Exam: CT Head Without Contrast Exam date and time: 09/16/2019 11:19 PM Age: 29 years old Clinical indication: Injury or trauma; Fall; Initial encounter; Blunt trauma (contusions or hematomas); Consciousness not specified; Additional info: Alcohol intoxication passed out woke up on the floor. TECHNIQUE: Imaging protocol: Computed tomography of the head without contrast. Radiation optimization: All CT scans at this facility use at least one of these dose optimization techniques: automated exposure control; mA and/or kV adjustment per patient size (includes targeted exams where dose is matched to clinical indication); or iterative reconstruction. COMPARISON: CT head wo con* [id number] 10/07/2017 9:50 PM RADIATION DOSE METRICS: Total DLP (mGy-cm): 791.03 FINDINGS: Brain: Normal. No hemorrhage. Unremarkable white matter. No mass effect. Ventricles: Normal. No ventriculomegaly. Bones/joints: Unremarkable. No acute fracture. Sinuses: The fluid and mucosal thickening is seen within the left ethmoidal sinuses and left sphenoidal sinus. Mastoid air cells: Visualized mastoid air cells are well aerated. Soft tissues: Unremarkable. CT/CT head wo con* [id number] IMPRESSION: There are no acute intracranial findings. Radiation Dose CTDIVOL = (mGy): DLP = 791.03 (mGy-cm)
[2019-09-16 23:45] LABS: Basophils % 0.7 %; Eosinophils # 0.2 10^3/uL (0.0-0.8); Eosinophils % 2.5 %; Hematocrit 44.2 % (37.0-47.0); Hemoglobin 14.5 g/dL (11.5-15.3); Lymphocytes # 1.7 10^3/uL (0.8-4.8); Lymphocytes % 28.1 %; Mean Corpuscular HGB Conc 32.8 g/dL (30.0-36.0); Mean Corpuscular Hemoglobin 35.1 pg (28.0-34.0); Mean Platelet Volume 10.1 fL (7.4-10.4); Monocytes # 0.5 10^3/uL (0.2-0.9); Monocytes % 9.2 %; Neutrophils # 3.49 10^3/uL (1.8-7.7); Neutrophils % 59.2 %; Nucleated Red Blood Cells % 0 %; Platelet Count 174 10^3/cmm (130-400); Red Blood Count 4.13 10^6/uL (4.1-5.3); White Blood Count 5.9 10^3/uL (4.0-10.0)
[2019-09-17] VITALS (8 sets, daily range): BP systolic 120–156; BP diastolic 81–110; PULSE 66–100; RESP 16–18; TEMP 36.5–37.2; O2SAT 93–99
[2019-09-17] LABS: HCG, Serum Qual Negative (Negative)
[2019-09-17 00:05] LABS: Alanine Aminotransferase 50 U/L (0-33); Albumin Level 4.4 g/dL (3.5-5.2); Alkaline Phosphatase 71 IU/L (35-105); Anion Gap 13.7 (5-19); Aspartate Amino Transferase 64 U/L (0-32); Blood Urea Nitrogen 5 mg/dL (6-20); Calcium 9.5 mg/dL (8.5-10.5); Carbon Dioxide 28 mmol/L (22-29); Chloride 100 mmol/L (98-107); Globulin 3.5 g/dL (1.3-4.6); Glomerular Filtration Rate 98.3 mL/min (90-130); Glucose 97 mg/dL (65-115); Osmolality Calculated 282 mOsm/kg (285-295); Potassium 3.7 mmol/L (3.5-5.1); Sodium 138 mmol/L (136-145); Total Bilirubin 0.9 mg/dL (0.15-1.2); Total Protein 7.9 g/dL (6.6-8.7)
[2019-09-17 00:11] LABS: Acetaminophen < 5.0 ug/mL (10-30); Alcohol Level < 10 mg/dL (0-10); Salicylate < 0.3 mg/dL (3-10)
[2019-09-17] MEDS: folic acid 1 MG, multivitamin inj 10 ML, thiamine 100 MG in sodium chloride 0.9% 1,000 ML 252.8 MG IV (00:22)
[2019-09-17] MEDS: metoclopramide 5 mg/mL SDV 2 mL 10 MG IVP (00:22)
[2019-09-17 00:32] LABS: Add Urine Microscopic? YES; Bacteria Urine 1+; Bilirubin Urine 1+ (NEGATIVE); Blood Urine Neg (Negative); Glucose Urine UA Norm (Normal); Ketones Urine Negative (Negative); Leukocyte Esterase Urine Trace (Negative); Mucus Urine 2+; Nitrate Urine Negative (Negative); Protein Urine Neg (Negative); RBC Urine 0-4 /hpf (0-2); Squamous Epithelial Cell Urine 15-25 (0-5); Urine Appearance Cloudy (CLEAR); Urine Color Dark Yellow (Yellow); Urobilinogen Urine 4 mg/dL (Negative); pH Urine 6 (5-7)
[2019-09-17] MEDS: LORazepam 2 mg/mL INJ 1 mL 1 MG IVP (00:51)
[2019-09-17] MEDS: thiamine 100 mg Tablet PO (08:42)
[2019-09-17] MEDS: multivitamin therapeutic Tablet 1 TAB PO (08:43)
[2019-09-17] MEDS: folic acid 1 mg Tablet PO (08:43)
[2019-09-17] MEDS: acetaminophen 325 mg Tablet 650 MG PO (09:21)
[2019-09-17] MEDS: LORazepam 2 mg Tablet PO (09:23)
--- NOTE | 2019-09-17 09:33 | PC.NURSE ---
PRN ACETAMETOPHEN 650 PO FOR HEADACHE GIVEN 920 PRN ATIVAN 2MG GIVEN PO FOR ANXIETY AT 21
[2019-09-17] MEDS: LORazepam 1 mg Tablet PO ×2 (14:51→20:20)
[2019-09-17] MEDS: buprenorphine-naloxone 4-1 mg Film 2 EACH SUBLINGUAL ×2 (14:51→20:20)
[2019-09-17] MEDS: albuterol 8 gm MDI 2 PUFF INHALATION (15:18)
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
[2019-09-18] VITALS (7 sets, daily range): BP systolic 144–154; BP diastolic 76–95; PULSE 65–80; RESP 16–20; TEMP 36.9–37.1; O2SAT 95–99
[2019-09-18] MEDS: LORazepam 2 mg Tablet PO (01:24)
--- NOTE | 2019-09-18 01:26 | PC.NURSE ---
ATIVAN Came to desk c/o feeling anxious and agitated. Having some nausea and tells me she has thrown up twice. This was not witnessed by nurses. Also c/o sweating and feeling shakey. Tremors only felt and not observed. Requesting Ativan. CIWA score redone at this time and score of 19. Ativan 2mg po given
[2019-09-18] MEDS: albuterol 8 gm MDI 2 PUFF INHALATION ×2 (01:30→20:42)
--- NOTE | 2019-09-18 02:45 | PC.NURSE ---
'BOILS' Pt came to nurses station stating that one of her boils busted open and was bleeding. Pt has X2 small firm spots on posterior upper left thigh. One had some bloody drainage. Was cleansed with NS and bandaid applied. Says she had 3 but one has gone away
[2019-09-18] MEDS: thiamine 100 mg Tablet PO (08:39)
[2019-09-18] MEDS: LORazepam 1 mg Tablet PO (08:39)
[2019-09-18] MEDS: buprenorphine-naloxone 4-1 mg Film 2 EACH SUBLINGUAL ×3 (08:39→21:48)
[2019-09-18] MEDS: multivitamin therapeutic Tablet 1 TAB PO (08:39)
[2019-09-18] MEDS: folic acid 1 mg Tablet PO (08:39)
--- NOTE | 2019-09-18 09:32 | P.PN_ITS ---
Subjective NPU Subjective: Interval history: Patient reports that physically she feels as she would expect to feel going through detox as she has done several times before. However this time, she reports that she is starting to process some much of the emotional trauma that she is experienced over the past year that has likely been a trigger for her severe alcohol abuse. She has an appointment on 09/22 with a counselor in her primary care doctor's office. She is highly motivated to make that appointment. Selected Entries 09/18/19 06:00 Temperature 98.8 F Respiratory Rate 16 Blood Pressure 144/82 Mental Status Exam MSE Comments: Mental Status Exam: Her eye contact is good. She is believed to be a reliable informant to the best of her ability. She is quite goal-directed in her distress wanting specifically to establish treatment with the detox protocol. Appearance: hygiene is fair; no gross neurological deficits., gait is unrema rkable; AIMS=0 Speech: Speech is of normal rate and rhythm and easily understood. Thought processes: Thought processes are abstract. Judgment is adequate for safety. Associations: intact Psychotic processes: There is no indication of guarding or paranoia. There is no attention to the internal stimuli. Auditory and visual hallucinations are denied. Judgment: Insight is fair. Problem solving skills are adequate for safety. Orientation: The patient is oriented to person, place time and situation. Memory: no deficits noted in immediate, intermediate, or remote spheres. Attention: The patient is alert and interpersonally engaged. Language: Verbalizations are coherent. Fund of knowledge: Fund of knowledge is adequate. Affect/Mood: Affect is consistent with a depressed mood. She denied suicidal ideation Affective range appropriate. Psychosis: perception unimpaired except through cognitive distortion; reality testing intact. Cognition: Patient Appearance: Appropriate Ability to Follow Directions: Good Patient Orientation (long list): Person, Place, Time, Name, Age, Birthday, Day of Month, Day of Week, Month, Time of Day and Year Comprehension Ability: No Impairment Hallucination Type: None Delusion Description: Not Present Thought Process: Appropriate and Logical Affect: Affect Description: Appropriate Behavior: Patient Behavior: Appropriate Speech Pattern: Appropriate Vitals/I&O/Wt Last Vital Signs Temp 98.8 F 09/18/19 06:00 Pulse 65 09/18/19 06:00 Resp 16 09/18/19 06:00 BP 144/82 07/11/20 06:00 Pulse Ox 96 09/18/19 06:00 Weight last 48 hrs Weight 127.006 kg Data NPU : 09/16/19 23:41 09/16/19 23:41 A&P Additional A&P Information Diagnoses: Alcohol dependence Assessment: The patient insists that she is able to remain sober when she establishes freedom from alcohol withdrawal. However, recent history argues against that assertion. She is unwilling to discuss further intervention and possibility of rehab to assist her in remaining clean and sober. The patient appears to be an intelligent and thoughtful person with some self-awareness. Hopefully this will be a step towards sobriety. Treatment plan: Due to the psychiatric conditions and treatment listed in the Assessment and Plan - the patient requires continued hospitalization. Will provide a safe and therapeutic environment for patient.. Will continue inpatient treatment to allow for medication adjustment and monitoring. Will continue q15 min safety checks. Hospital day #1: The patient was entered into the full array of individual and group therapies as part of the adult psychiatric unit protocol. She will receive 24-hour monitoring and care from trained psychiatric nursing staff. [facility] for alcohol withdrawal. She was started on lorazepam 1 mg 3 times daily scheduled on top of that protocol. Hospital day #2:Patient reports that physically she feels as she would expect to feel going through detox as she has done several times before. However this time, she reports that she is starting to process some much of the emotional trauma that she is experienced over the past year that has likely been a trigger for her severe alcohol abuse. She has an appointment on 09/22 with a counselor in her primary care doctor's office. She is highly motivated to make that appointment. He displays no signs of delirium tremens and has had no seizures. Plan: Decrease scheduled lorazepam to 0.5 mg 3 times daily and will continue to taper as she withdraws from alcohol dependence Monitor patient's mood, sleep, appetite, and behavior closely. Encourage patient to participate in individual and group therapeutic sessions on the orozco. Estimated length of stay 5 days The expected benefits and potential side effects of patient's psychiatric medications were discussed with the patient. The patient understands and consents to treatment.CRITERIA FOR DISCHARGE: stable on medications and no longe r an imminent risk Involuntary Hold Information 2 96 Hour Hold: 96 Hour Involuntary Admission: No Attestations NPU Medical Necessity Statement*: Patient will remain in the hospital another 2-3 nights to maintain safety during alcohol detoxification. Coding Level of Care Code Acute Profiling Machine Operator for Bartolo Lund
[2019-09-18] MEDS: acetaminophen 325 mg Tablet 650 MG PO (10:24)
[2019-09-18] MEDS: LORazepam 0.5 mg Tablet PO ×2 (14:34→21:44)
[2019-09-18] MEDS: diphenhydrAMINE 50 mg Capsule PO (17:31)
[2019-09-18] MEDS: trazodone 50 mg Tablet PO (21:44)
[2019-09-19] MEDS: LORazepam 0.5 mg Tablet PO ×3 (02:06→21:15)
[2019-09-19 06:00] VITALS: BP 145/73; PULSE 71; RESP 18; TEMP 37.1; O2SAT 94
[2019-09-19 08:53] VITALS: PULSE 71; RESP 18; O2SAT 96
[2019-09-19] MEDS: albuterol 8 gm MDI 2 PUFF INHALATION (08:53)
[2019-09-19] MEDS: thiamine 100 mg Tablet PO (09:32)
[2019-09-19] MEDS: multivitamin therapeutic Tablet 1 TAB PO (09:33)
[2019-09-19] MEDS: buprenorphine-naloxone 4-1 mg Film 2 EACH SUBLINGUAL ×3 (09:34→21:20)
[2019-09-19] MEDS: LORazepam 2 mg Tablet PO ×2 (10:06→22:54)
[2019-09-19] MEDS: folic acid 1 mg Tablet PO (10:06)
[2019-09-19 14:00] VITALS: BP 134/82; PULSE 89; RESP 18; TEMP 37.1; O2SAT 98
[2019-09-19] MEDS: acetaminophen 325 mg Tablet 650 MG PO (17:13)
--- NOTE | 2019-09-19 19:46 | PM.NPN ---
Subjective NPU Subjective: Interval history: The patient says that she is experiencing fewer symptoms but she is very manipulative. She tries to wangle additional lorazepam for her CIWA protocol but I reminded her this is a standardized process. She complains of difficulty breathing in the morning and a sore throat on the outside under the skin. Vitals/I&O/Wt Last Vital Signs Temp 98.7 F 09/19/19 14:00 Pulse 89 09/19/19 14:00 Resp 18 09/19/19 14:00 BP 134/82 09/19/19 14:00 Pulse Ox 98 09/19/19 14:00 Weight last 48 hrs Weight 266 lb 12.8 oz Physical Exam Const: COMMON NORMALS: no acute distress and patient oriented x3 GENERAL APPEARANCE: cooperative and anxious NUTRITIONAL APPEARANCE: obese (Patient is massively obese.) OTHER: The patient's temperature at the time of my examination (approximately 1930) was 98.1 ?F. HENMT: COMMON NORMALS: oropharynx normal (Good Mallampati. No inflammation.) HEAD IMAGES: 1. Inflamed lymph node Lymph: OTHER: I felt a small lymph node on the left side, about the size and shape of a small [employer] guardado. It is tender to the touch. Data NPU : 09/16/19 23:41 09/16/19 23:41 A&P Assessment and plan (1) Alcohol abuse with alcohol-induced mood disorder: [facility] protocol proceeding apace. Status: Acute Involuntary Hold Information 96 Hour Hold: 96 Hour Involuntary Admission: No Attestations NPU Medical Necessity Statement*: I anticipate 5-7 midnights hospitalization. Time Spent in Patient Care: Greater than 35 minutes (>than 50% of time spent in counselling and/or direct pt care on unit). At least 60 minutes with physical examination of the oropharynx and external nodes on the neck. Also extensive cognitive behavioral intervention relating to her alcoholism. Coding Level of Care Code Acute Director Clinical Operations for Bartolo Lund Diagnoses Alcohol abuse with alcohol-induced mood disorder F10.14
--- NOTE | 2019-09-19 20:32 | PM.CONSULT ---
Providers/Reason For Consult Consulting Physican/Specialty*: Frase, Hospitalist Reason for Consult*: sore throat and trouble breathing in the mornings Attending Physician: Jon Barboza MD Primary Care Provider: VIRGINIA Choudhary History of Present Illness History of Present Illness Wendy De La Cruz is a 29 year old female admitted to the psychiatric unit on the 10th with alcohol intoxication and desiring detoxification. She had expressed thoughts of being fearful that she would because of how much she was drinking. For details please see history and physical exam. In short she had been drinking a gallon of vodka a day. She has been hospitalized several times this year. I was called this evening because patient is complaining of a bit of a sore throat and some cough and difficulty breathing in the mornings. Examination by psychiatrist revealed a small lymph node in the left side of the neck and the anterior cervical chain. With her complaints he wanted a medical evaluation. In talking with her she smokes up to 1-1/2 packs of cigarettes a day. She had a chronic cough for some time. She has had multiple courses of antibiotics and steroids for this in the past. Her current cough is similar to but a little bit worse than her baseline cough. She states that she is receiving inhalers here rather than nebulizer treatments and that the nebulizer treatments worked better for her. No fevers. She does not report any COVID exposure. She is worried about the lymph node in her neck. She denies difficulty swallowing to states that her throat is sore. She has had nasal congestion and some facial tenderness. Review of vital signs throughout the hospital stay shows no fevers, normal oxygen saturations on room air, 1 respiratory rate recorded at 20, remainder below. Review of Systems Const: Denies: fever(s), chills or change in appetite ENMT: Reports: throat pain and nasal congestion; Denies: odynophagia Card: Denies: chest pain, palpitations, edema, swelling of feet/ankles, dyspnea on exertion or orthopnea Resp: Reports: dyspnea (Primarily with coughing), productive cough, wheezing and change in phlegm color (brownish\yellow); Denies: non-productive cough, pain on inspiration or hemoptysis GI: Denies: abdominal pain, nausea, vomiting, diarrhea or constipation : Denies: difficulty voiding Musc: Reports: other (Reports chronic pains, nothing acute) Skin/Breast: Denies: rash or pruritus Neuro: Denies: headache(s), difficulty walking or dizziness Psych: Reports: anxiety Meds/Allergies Home Medications and Allergies Home Medications Medication Instructions Recorded Confirmed Last Taken Type Buprenorphine HCI 1 tab SUBLINGUAL TID 03/08/19 09/17/19 09/16/19 History albuterol sulfate 90 mcg/actuation 2 puff INHALATION Q6H PRN #18 gm 03/11/19 09/17/19 09/16/19 Rx aerosol inhaler budesonide 1 inh INHALATION DAILY #1 each 08/13/19 09/17/19 Unknown Rx Allergies Allergy/AdvReac Type Severity Reaction Status Date / Time codeine Allergy Unknown ALGY-Hives Verified 09/08/19 14:33 Current Medications Current Medications Generic Name Dose Route Start Last Admin Trade Name Freq PRN Reason Stop Dose Admin Acetaminophen 650 mg 09/17/19 02:54 09/19/19 17:13 Tylenol PO 650 mg Q4H PRN Administration MILD PAIN Albuterol Sulfate 2 puff 09/17/19 06:36 09/19/19 08:53 Ventolin INHALATION 2 puff Q6H PRN Administration shortness of breath or wheezing Buprenorphine/Naloxone 2 each 09/17/19 15:00 09/19/19 15:06 Suboxone 4-1 Mg SUBLINGUAL 2 each TID JULIANO Administration Folic Acid 1 mg 09/17/19 09:00 09/19/19 10:06 Folic Acid PO 1 mg DAILY JULIANO Administration Lorazepam 2 mg 09/17/19 02:54 09/19/19 10:06 Ativan PO 2 mg PROTOCOL PRN Administration WITHDRAWAL Protocol Lorazepam 0.5 mg 09/18/19 15:00 09/19/19 15:06 Ativan PO 0.5 mg TID JULIANO Administration Multivitamins Therapeutic 1 tab 09/17/19 09:00 09/19/19 09:33 Multivitamin Tab PO 1 tab DAILY JULIANO Administration Non-Formulary Medication 1 inh 09/17/19 09:00 09/19/19 10:30 Budesonide INHALATION Not Given DAILY JULIANO Thiamine Mononitrate 100 mg 09/17/19 09:00 09/19/19 09:32 Vitamin B-1 PO 100 mg DAILY JULIANO Administration Trazodone HCl 50 mg 09/17/19 02:54 09/18/19 21:44 Desyrel PO 50 mg BEDTIME PRN Administration SLEEP PFSH Acute PFSH: Medical History (Updated 09/19/19 @ 22:19 by Celina Medrano MD) Alcohol abuse with alcohol-induced mood disorder Allergic rhinitis, unspecified Essential (primary) hypertension not on any chronic treatment 09/26 Family history of alpha 1 antitrypsin deficiency Fibromyalgia Generalized anxiety disorder H/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, includes meth, heroin, others, on buprenorphine Hepatitis C antibody positive in blood hepatomegaly, splenomegaly, low platelets transiently noted -09/26, no treatment Hx of abscess of skin and subcutaneous tissue right arm Major depressive disorder, recurrent, moderate Nontoxic thyroid nodule Polycystic ovarian syndrome polycystic ovaries not notated on CT abdomen/pelvis 01/26 Unspecified asthma, uncomplicated onset in childhood Surgical History Hx of cholecystectomy Family History (Updated 09/19/19 @ 20:33 by Celina Medrano MD) Other Fryty-3-[id number] deficiency Drug abuse, amphetamine type Hypertension Social History (Updated 09/19/19 @ 20:33 by Celina Medrano MD) Smoking and tobacco status: current every day smoker cigarettes Packs smoked per day: 1.5 Years cigarettes smoked: 15 Quit status (tobacco): considering quitting Smoking risk assessment/counseling performed?: Yes Alcohol intake: current Alcohol intake frequency: 3 or more drinks per day Alcohol type: hard liquor Lives independently: Yes Household members: family Marital status: Single Current occupational status: employed History of recent travel: No Current gender identity: Female Female Reproductive History: Date of last menstrual period: 08/24/19 Para: 2 Vitals/I&O/Wt Last Vital Signs Temp 98.7 F 09/19/19 14:00 Pulse 89 09/19/19 14:00 Resp 18 09/19/19 14:00 BP 134/82 09/19/19 14:00 Pulse Ox 98 09/19/19 14:00 Weight last 48 hrs Weight 121.018 kg Physical Exam Narrative: EXAM NARRATIVE: Patient is awake and alert, walking around without apparent shortness of breath or difficulty. She is obese. She has a red enrique laterally under the right eye. Pupils are equally reactive and extraocular movements are intact, conjunctive a noninjected. Nasopharynx with boggy red turbinates and clear drainage noted. Oropharynx with some postnasal drainage and some cobblestoning visualized, no erythema or exudates. Neck is supple with some tenderness in the anterior cervical chain with a less than 1 cm palpable lymph node that is tender. Lungs with some faint inspiratory and expiratory wheezes, no tachypnea, no retractions, no pursed lip breathing, no nasal flaring, good aeration throughout. She has a regular rhythm without any murmurs noted. Abdomen is soft without apparent tenderness. No edema. Gait is normal, face symmetric, speech clear. Data Labs: Other Labs: Laboratory Last Values WBC 5.9 10^3/uL (4.0- 10.0) 09/16/19 23: RBC 4.13 10^6/uL (4.1 -5.3) 09/16/19 23: Hgb 14.5 g/dL (11.5-1 5.3) 09/16/19 23: Hct 44.2 % (37.0-47.0 ) 09/16/19 23: MCV 107.0 fL (81-99) H 09/16/19 23: MCH 35.1 pg (28.0-34. 0) H 09/16/19 23: MCHC 32.8 g/dL (30.0-3 6.0) 09/16/19 23: RDW 15.0 % (12.1-15.1 ) 09/16/19 23: Plt Count 174 10^3/cmm (130 -400) 09/16/19 23: MPV 10.1 fL (7.4-10.4 ) 09/16/19 23:41 Neut % (Auto) 59.2 % 09/16/19 23: Lymph % (Auto) 28.1 % 09/16/19 23: Radford % (Auto) 9.2 % 09/16/19 23: Eos % (Auto) 2.5 % 09/16/19 23: Baso % (Auto) 0.7 % 09/16/19 23:41 Neut # (Auto) 3.49 10^3/uL (1.8 -7.7) 09/16/19 23: Lymph # (Auto) 1.7 10^3/uL (0.8- 4.8) 09/16/19 23:41 Radford # (Auto) 0.5 10^3/uL (0.2- 0.9) 09/16/19 23:41 Eos # (Auto) 0.2 10^3/uL (0.0- 0.8) 09/16/19 23:41 Baso # (Auto) 0.0 10^3/uL (0.0- 0.1) 09/16/19 23:41 Nucleated RBC % (a uto) 0 % 09/16/19 23:41 Nucleated RBCs # 0.0 /100WBC 09/16/19 23:41 Sodium 138 mmol/L (136-1 45) 09/16/19 23:41 Potassium 3.7 mmol/L (3.5-5 .1) 09/16/19 23:41 Chloride 100 mmol/L (98-10 7) 09/16/19 23:41 Carbon Dioxide 28 mmol/L (22-29) 09/16/19 23:41 Anion Gap 13.7 (5-19) 09/16/19 23:41 BUN 5 mg/dL (6-20) L 09/16/19 23:41 Creatinine 0.7 mg/dL (0.5-0. 9) 09/16/19 23:41 GFR Calculation 98.3 mL/min (90-1 30) 09/16/19 23:41 Glucose 97 mg/dL (65-115) 09/16/19 23:41 Calculated Osmolal ity 282 mOsm/kg (285- 295) L 09/16/19 23:41 Calcium 9.5 mg/dL (8.5-10 .5) 09/16/19 23:41 Total Bilirubin 0.9 mg/dL (0.15-1 .2) 09/16/19 23:41 AST 64 U/L (0-32) H 09/16/19 23:41 ALT 50 U/L (0-33) H 09/16/19 23:41 Alkaline Phosphata se 71 IU/L (35-105) 09/16/19 23:41 Total Protein 7.9 g/dL (6.6-8.7 ) 09/16/19 23:41 Albumin 4.4 g/dL (3.5-5.2 ) 09/16/19 23:41 Globulin 3.5 g/dL (1.3-4.6 ) 09/16/19 23:41 HCG, Qual Negative (Negati ve) 09/16/19 23:41 Urine Color Dark yellow (Yel low) 09/16/19 23:45 Urine Appearance Cloudy (CLEAR) 09/16/19 23:45 Urine pH 6 (5-7) 09/16/19 23:45 Ur Specific Gravit y 1.010 (1.005-1.0 30) 09/16/19 23:45 Urine Protein Neg (Negative) 09/16/19 23:45 Urine Glucose (UA) Norm (Normal) 09/16/19 23:45 Urine Ketones Negative (Negati ve) 09/16/19 23:45 Urine Blood Neg (Negative) 09/16/19 23:45 Urine Nitrate Negative (Negati ve) 09/16/19 23:45 Urine Bilirubin 1+ (NEGATIVE) H 09/16/19 23:45 Urine Urobilinogen 4 mg/dL (Negative ) H 09/16/19 23:45 Ur Leukocyte Louisa ase Trace (Negative) H 09/16/19 23:45 Urine RBC 0-4 /hpf (0-2) H 09/16/19 23:45 Urine WBC 10-15 /hpf (0-5) H 09/16/19 23:45 Ur Squamous Epith Cells 15-25 (0-5) H 09/16/19 23:45 Amorphous Sediment Not Reportable 09/16/19 23:45 Urine Bacteria 1+ (NONE) H 09/16/19 23:45 Urine Mucus 2+ 09/16/19 23:45 Salicylates < 0.3 mg/dL (3-10 ) L 09/16/19 23:41 Acetaminophen < 5.0 ug/mL (10-3 0) L 09/16/19 23:41 Ethyl Alcohol < 10 mg/dL (0-10) 09/16/19 23:41 Laboratory Tests 09/09/19 09/09/19 09/09/19 10:56 10:56 17:10 MCV Plt Count 47 L Total Bilirubin 1.6 H AST 145 H ALT 72 H Vitamin B12 219 L Hepatitis C Antibo dy 09/09/19 09/10/19 17:14 04:40 MCV 104.2 H Plt Count 52 L Total Bilirubin AST ALT Vitamin B12 Hepatitis C Antibo dy Reactive H A&P Assessment and plan (1) Bronchitis: Acute on chronic, related to smoking Status: Acute (2) Allergic rhinitis, unspecified: Versus sinusitis Status: Acute Qualifiers: Allergic rhinitis seasonality: seasonal Allergic rhinitis trigger: unspecified Qualified Code(s): J30.2 - Other seasonal allergic rhinitis (3) Sore throat: Suspect secondary to postnasal drainage at this point in time Status: Acute (4) Unspecified asthma, uncomplicated: Abated by the above Status: Chronic Qualifiers: Asthma persistence: unspecified Asthma severity: unspecified severity Qualified Code(s): J45.909 - Unspecified asthma, uncomplicated (5) Tobacco abuse: Chronic issue, not currently interested in quitting Status: Chronic (6) Elevated transaminase level: Known to be hepatitis C positive but also heavy alcohol use lately. Values are decreased from last week when she was admitted. Status: Acute (7) Hepatitis C antibody positive in blood: Status: Chronic (8) B12 deficiency: Status: Chronic (9) Alcohol abuse with alcohol-induced mood disorder: Management as per psychiatry Status: Acute Additional A&P Information Will check a chest x-ray, CBC, procalcitonin Check rapid strep screen though I do not have high suspicion for this presently Recommend patient wear a mask given her coughing Add Flonase and Claritin Change to nebulizer treatments rather than inhaler Short course of steroids Guaifenesin as needed Monitor closely for fevers or other concerning symptoms that would suggest more specifically need to test for COVID On thiamine replacement which she will need at discharge Upon discharge would recommend follow-up with PCP for follow-up of both respiratory issues and hepatitis C antibody positive status in setting of chronic alcohol use along with B12 deficiency Other treatment as per psychiatry I discussed concerns and plans with Dr. Rory Valadez and he was agreeable with current management Discussed plans with patient and gave her an opportunity to ask questions, she is agreeable with current recommendations Thank you for consultation, will follow for now One of my colleagues will be taking over in the morning Coding Level of Care Code Acute Blocking Machine Operator Second for [facility] Fwd Diagnoses Bronchitis J40 Allergic rhinitis, unspecified J30.2 Allergic rhinitis seasonality: seasonal Allergic rhinitis trigger: unspecified Sore throat J02.9 Unspecified asthma, uncomplicated J45.909 Asthma persistence: unspecified Asthma severity: unspecified severity Tobacco abuse Z72.0 Elevated transaminase level R74.0 Hepatitis C antibody positive in blood R76.8 B12 deficiency E53.8 Alcohol abuse with alcohol-induced mood disorder F10.14
--- NOTE | 2019-09-19 21:13 | XR_ITS ---
WS: [id number] Portable AP upright chest, 09/19/2019 Clinical Data: sob/sore throat in mornings Comparison: None. Findings: No nodules, masses or effusions are seen. The heart is normal. The pulmonary vascularity is not increased. No pneumonia or pneumothorax is seen. XR/XR chest 1V portable [id number] Impression: Negative chest.
[2019-09-19] MEDS: trazodone 50 mg Tablet PO (21:15)
[2019-09-19 22:00] VITALS: BP 129/90; PULSE 73; RESP 18; TEMP 36.7; O2SAT 97
--- NOTE | 2019-09-19 22:32 | PC.NURSE ---
PATIENT STATING TO OTHER PATIENTS THAT SHE HAS SORE THROAT AND, CHRONIC COUGH AND THINKS MAY HAVE COVID, OTHER PATIENTS TALKING ABOUT THIS AND SAYING THEY DO NOT WANT TO GET COVID. HOSPITALIST HERE TO TALK TO PATIENT AND DR AZUL, TEST ORDERED, STREP TEST ORDERED, CHEST XRAY, MASK 30/09, DISTANCE FROM OTHER PATIENTS, STARTED CLARITIN AND FLONASE.
[2019-09-19] MEDS: predniSONE 20 mg Tablet 40 MG PO (22:54)
--- NOTE | 2019-09-19 22:57 | PC.NURSE ---
PRN ATIVAN ADMINISTERED ATIVAN 2 MG PO PER CIWA PROTOCOL. WILL MONITOR FOR MEDICATION EFFECTIVENESS.
[2019-09-20 00:03] LABS: Basophils % 0.4 %; Eosinophils # 0.1 10^3/uL (0.0-0.8); Eosinophils % 1.3 %; Hematocrit 42.4 % (37.0-47.0); Hemoglobin 13.7 g/dL (11.5-15.3); Lymphocytes # 1.7 10^3/uL (0.8-4.8); Lymphocytes % 36.7 %; Mean Corpuscular HGB Conc 32.3 g/dL (30.0-36.0); Mean Corpuscular Hemoglobin 34.9 pg (28.0-34.0); Mean Corpuscular Volume 107.9 fL (81-99); Mean Platelet Volume 10.1 fL (7.4-10.4); Monocytes # 0.4 10^3/uL (0.2-0.9); Monocytes % 8.7 %; Neutrophils # 2.48 10^3/uL (1.8-7.7); Neutrophils % 52.7 %; Nucleated Red Blood Cells % 0 %; Platelet Count 206 10^3/cmm (130-400); Red Blood Count 3.93 10^6/uL (4.1-5.3); Red Cell Distribution Width 14.7 % (12.1-15.1); White Blood Count 4.7 10^3/uL (4.0-10.0)
[2019-09-20 00:06] LABS: Rapid Strep A Test Negative (Negative)
[2019-09-20 06:00] VITALS: BP 153/76; PULSE 61; RESP 16; TEMP 36.4; O2SAT 96
[2019-09-20] MEDS: budesonide 0.5 mg/2 mL Neb INHALATION (08:40)
[2019-09-20] MEDS: ipratropium-albuterol 3 mL Neb INHALATION ×3 (08:40→15:56)
[2019-09-20 08:42] VITALS: PULSE 66; RESP 18; O2SAT 97
[2019-09-20] MEDS: predniSONE 20 mg Tablet 40 MG PO (08:43)
[2019-09-20] MEDS: multivitamin therapeutic Tablet 1 TAB PO (08:43)
[2019-09-20] MEDS: thiamine 100 mg Tablet PO (08:43)
[2019-09-20] MEDS: acetaminophen 325 mg Tablet 650 MG PO ×2 (08:43→14:21)
[2019-09-20] MEDS: folic acid 1 mg Tablet PO (08:43)
[2019-09-20] MEDS: loratadine 10 mg Tablet PO (08:44)
[2019-09-20] MEDS: LORazepam 0.5 mg Tablet PO ×3 (08:44→21:33)
[2019-09-20] MEDS: buprenorphine-naloxone 4-1 mg Film 2 EACH SUBLINGUAL ×3 (08:44→21:31)
[2019-09-20] MEDS: fluticasone nasal spray 16gm Btl 2 SPRAY NASAL (08:44)
[2019-09-20] MEDS: sennosides-docusate Tablet 1 TAB PO ×2 (08:44→16:55)
--- NOTE | 2019-09-20 09:38 | P.PN_ITS ---
Subjective Subjective: Interval history: Chart reviewed, VSS, afebrile. No leukocytosis, pro-calcitonin wnl, group A strep negative. Reports being fatigued but otherwise no new changes. Discussed with nursing staff and Dr. Valadez. Medications: Reviewed: Yes Medication Review Details: Active Medications Generic Name Dose Route Start Last Admin Trade Name Freq PRN Reason Stop Dose Admin Acetaminophen 650 mg 09/17/19 02:54 09/20/19 08:43 Tylenol PO 650 mg Q4H PRN Administration MILD PAIN Albuterol Sulfate 2 puff 09/17/19 06:36 09/19/19 08:53 Ventolin INHALATION 2 puff Q6H PRN Administration shortness of clint th or wheezing Albuterol/Ipratrop ium 3 ml 09/20/19 03:00 09/20/19 08:40 Duoneb INHALATION 3 ml Q6H.RESPIRATORY S CH Administration Benztropine Mesyla te 1 mg 09/17/19 02:54 Cogentin PO BID PRN Mild Extrapyramid al symptoms Budesonide 0.5 mg 09/20/19 08:00 09/20/19 08:40 Pulmicort INHALATION 0.5 mg BID.RESPIRATORY S CH Administration Buprenorphine/Nalo xone 2 each 09/17/19 15:00 09/20/19 08:44 Suboxone 4-1 Mg SUBLINGUAL 2 each TID JULIANO Administration Camphor/Menthol/Ph enol 1 applic 09/17/19 02:54 Blistex TOPICAL Q1H PRN DRYNESS Diphenhydramine HC l 50 mg 09/17/19 02:54 Benadryl IM ONCE PRN Severe Extrapyram idal Symptoms Diphenhydramine HC l 50 mg 09/17/19 02:54 Benadryl IM Q4H PRN Severe Aggression Fluticasone Propio george 2 spray 09/20/19 09:00 09/20/19 08:44 Flonase NASAL 2 spray DAILY JLUIANO Administration Folic Acid 1 mg 09/17/19 09:00 09/20/19 08:43 Folic Acid PO 1 mg DAILY JULIANO Administration Guaifenesin 400 mg 09/19/19 22:23 Robitussin Oral Liq PO Q4H PRN COUGH Haloperidol 5 mg 09/17/19 02:54 Haldol PO Q4H PRN AGITATION Haloperidol Lactat e 5 mg 09/17/19 02:54 Haldol Inj IM Q4H PRN Severe Aggression Hydroxyzine Pamoat e 50 mg 09/17/19 02:54 Vistaril PO Q6H PRN ANXIETY Loperamide HCl 2 mg 09/17/19 02:54 Imodium Capsule PO Q6H PRN DIARRHEA Loratadine 10 mg 09/20/19 09:00 09/20/19 08:44 Claritin PO 10 mg DAILY JULIANO Administration Lorazepam 2 mg 09/17/19 02:54 Ativan IM PROTOCOL PRN ALCOWD Protocol Lorazepam 2 mg 09/17/19 02:54 09/19/19 22:54 Ativan PO 2 mg PROTOCOL PRN Administration WITHDRAWAL Protocol Lorazepam 0.5 mg 09/18/19 15:00 09/20/19 08:44 Ativan PO 0.5 mg TID JULIANO Administration Multivitamins Ther apeutic 1 tab 09/17/19 09:00 09/20/19 08:43 Multivitamin Tab PO 1 tab DAILY JULIANO Administration Nicotine 1 patch 09/17/19 02:54 Nicoderm 21 Mg P atch TRANSDERMA DAILY PRN NICOTINE WITHDRAW AL Nicotine Polacrile x 2 mg 09/17/19 02:54 Nicorette BUCCAL Q2H PRN NICOTINE WITHDRAW AL Olanzapine 5 mg 09/17/19 02:54 Zyprexa Zydis PO Q4H PRN Agitation/Psychos is Ondansetron HCl 4 mg 09/17/19 02:54 Zofran PO Q6H PRN NAUSEA AND VOMITI NG Prednisone 40 mg 09/19/19 22:25 09/20/19 08:43 Prednisone PO 09/24/19 01:00 40 mg DAILY JULIANO Administration Senna/Docusate Sod ium 1 tab 09/20/19 09:00 09/20/19 08:44 Senna-S PO 1 tab BID JULIANO Administration Thiamine Mononitra te 100 mg 09/17/19 09:00 09/20/19 08:43 Vitamin B-1 PO 100 mg DAILY JULIANO Administration codeine Allergy (Unknown, Verified 09/08/19 14:33) ALGY-Hives Vitals/I&O/Wt Last Vital Signs Temp 97.6 F 09/20/19 06:00 Pulse 66 09/20/19 08:42 Resp 18 09/20/19 08:42 BP 153/76 09/20/19 06:00 Pulse Ox 97 09/20/19 08:42 Weight last 48 hrs Weight 121.018 kg Physical Exam Const: COMMON NORMALS: no acute distress and patient oriented x3 GENERAL APPEARANCE: cooperative and comfortable NUTRITIONAL APPEARANCE: obese morbidly obese ORIENTATION/CONSCIOUSNESS: Yes awake HENMT: COMMON NORMALS: normocephalic, atraumatic, hearing grossly normal bilaterally and moist oral mucous membranes HEAD & SCALP: normocephalic and atraumatic Eye: COMMON NORMALS: Equal, round and reactive pupils present, EOMs intact bilaterally and conjunctivae normal CONJUNCTIVA: Yes conjunctivae normal PUPIL: Yes Equal, round and reactive pupils present Neck/C-Spine: COMMON NORMALS: full ROM GENERAL: Yes normal visual i nspection and Yes trachea midline Resp: COMMON NORMALS: normal respiratory effort, No retractions, No use of accessory muscles and clear to auscultation bilaterally EFFORT & INSPECTION: Yes able to speak in complete sentences, Yes symmetric chest movement and No tachypneic AUSCULTATION: clear to auscultation bilaterally Cardio: COMMON NORMALS: regular rate, regular rhythm, S1 normal heart sound present, S2 normal heart sound present and No murmurs present (Cardio) RATE: regular rate RHYTHM: regular rhythm HEART SOUNDS: S1 normal heart sound present and S2 normal heart sound present GI: COMMON NORMALS: Normal to inspection, nondistended, normoactive bowel sounds present, Soft to palpation and non-tender INSPECTION: Yes central obesity PALPATION: Yes Soft to palpation Extremity: COMMON NORMALS: normal to inspection, full ROM and no clubbing, cyanosis or edema; negative for no pedal edema Neuro: COMMON NORMALS: patient oriented x3, moves all extremities, no focal motor deficits, no sensory deficits noted and gait normal Psych: COMMON NORMALS: mental status grossly normal, Normal thought process present, cooperative, normal affect and speech normal SPEECH: Yes normal speech THOUGHT PROCESS: Normal thought process present Skin: COMMON NORMALS: no rashes or lesions noted, no jaundice, no petechiae and no mottling GENERAL SKIN EXAM: no rashes or lesions noted Data : 09/19/19 23:58 09/16/19 23:41 A&P Assessment and plan (1) Bronchitis: -no leukocytosis, afebrile, pro-calcitonin wnl, group A strep negative though culture pending -no known COVID-19 exposure -recommended wearing mask due to cough though this appears to be chronic -has known hx of chronic smoking and asthma -CCR negative Status: Acute (2) Unspecified asthma, uncomplicated: -has been following up with Dr. Tong -Neb treatments as needed Status: Chronic Qualifiers: Asthma persistence: unspecified Asthma severity: unspecified severity Qualified Code(s): J45.909 - Unspecified asthma, uncomplicated (3) Tobacco abuse: Status: Chronic (4) Alcohol abuse with alcohol-induced mood disorder: -negative EtOH level on admission -prior admissions for the same -per Psychiatry -MVI, folate, thiamine daily Status: Acute (5) Hepatitis C antibody positive in blood: -outpatient follow up Status: Chronic (6) Sore throat: -likely related to bronchitis Status: Acute (7) Elevated transaminase level: -likely due to EtOH abuse as well as hx of chronic hepatitis C Status: Acute (8) B12 deficiency: Status: Chronic (9) H/O drug abuse: -hx of polysubstance abuse Status: Acute (10) Essential (primary) hypertension: -VSS, not on treatment Status: Acute Additional A&P Information -regular diet as tolerated -Dispo: per Psychiatry -Code status: FULL code -will sign off at this time, please call with questions Attestations Medical Necessity Statement*: Patient requires hospitalization for continued inpatient psychiatric care. Time Spent in Patient Care: Greater than 35 minutes (>than 50% of time spent in counselling and/or direct pt care on unit) . Coding Level of Care Code Acute Administrative Office Manager for [facility] Fwd Exam Comprehensive Diagnoses Bronchitis J40 Unspecified asthma, uncomplicated J45.909 Asthma persistence: unspecified Asthma severity: unspecified severity Tobacco abuse Z72.0 Alcohol abuse with alcohol-induced mood disorder F10.14 Hepatitis C antibody positive in blood R76.8 Sore throat J02.9 Elevated transaminase level R74.0 B12 deficiency E53.8 H/O drug abuse F19.11 Essential (primary) hypertension I10
[2019-09-20 13:59] VITALS: BP 152/95; PULSE 60; RESP 18; TEMP 36.8; O2SAT 91
[2019-09-20 15:57] VITALS: PULSE 101; RESP 18; O2SAT 95
--- NOTE | 2019-09-20 20:51 | PM.NPN ---
Subjective NPU Subjective: Interval history: The patient's mood is brighter today. She is ambivalent about leaving; on the one hand, she is in a Suboxone program and has to make an appointment on the . On the other she is still not quite finished with her detox symptoms. She is a classical addict, who wants 0 symptoms as a consequence of her addiction. We talked about and she decides it is best to leave tomorrow. Medications: Reviewed: Yes Medication Review Details: Current Medications Acetaminophen (Tylenol) 650 mg PO Q4H PRN PRN Reason: MILD PAIN Last Admin: 09/20/19 14:21 Dose: 650 mg Documented by: Albuterol Sulfate (Ventolin) 2 puff INHALATION Q6H PRN PRN Reason: shortness of breath or wheezing Last Admin: 09/19/19 08:53 Dose: 2 puff Documented by: Albuterol/Ipratropium (Duoneb) 3 ml INHALATION Q6H.RESPIRATORY JULIANO Last Admin: 09/20/19 20:49 Dose: Not Given Documented by: Benztropine Mesylate (Cogentin) 1 mg PO BID PRN PRN Reason: Mild Extrapyramidal symptoms Budesonide (Pulmicort) 0.5 mg INHALATION BID.RESPIRATORY JULIANO Last Admin: 09/20/19 20:48 Dose: Not Given Documented by: Buprenorphine/Naloxone (Suboxone 4-1 Mg) 2 each SUBLINGUAL TID JULIANO Last Admin: 09/20/19 14:18 Dose: 2 each Documented by: Camphor/Menthol/Phenol (Blistex) 1 applic TOPICAL Q1H PRN PRN Reason: DRYNESS Diphenhydramine HCl (Benadryl) 50 mg IM ONCE PRN PRN Reason: Severe Extrapyramidal Symptoms Diphenhydramine HCl (Benadryl) 50 mg IM Q4H PRN PRN Reason: Severe Aggression Fluticasone Propionate (Flonase) 2 spray NASAL DAILY JULIANO Last Admin: 09/20/19 08:44 Dose: 2 spray Documented by: Folic Acid (Folic Acid) 1 mg PO DAILY JULIANO Last Admin: 09/20/19 08:43 Dose: 1 mg Documented by: Guaifenesin (Robitussin Oral Liq) 400 mg PO Q4H PRN PRN Reason: COUGH Haloperidol (Haldol) 5 mg PO Q4H PRN PRN Reason: AGITATION Haloperidol Lactate (Haldol Inj) 5 mg IM Q4H PRN PRN Reason: Severe Aggression Hydroxyzine Pamoate (Vistaril) 50 mg PO Q6H PRN PRN Reason: ANXIETY Loperamide HCl (Imodium Capsule) 2 mg PO Q6H PRN PRN Reason: DIARRHEA Loratadine (Claritin) 10 mg PO DAILY [facility] Last Admin: 09/20/19 08:44 Dose: 10 mg Documented by: Lorazepam (Ativan) 2 mg IM PROTOCOL PRN; Protocol PRN Reason: ALCOWD Lorazepam (Ativan) 2 mg PO PROTOCOL PRN; Protocol PRN Reason: WITHDRAWAL Last Admin: 09/19/19 22:54 Dose: 2 mg Documented by: Lorazepam (Ativan) 0.5 mg PO TID [facility] Last Admin: 09/20/19 14:18 Dose: 0.5 mg Documented by: Multivitamins Therapeutic (Multivitamin Tab) 1 tab PO DAILY [facility] Last Admin: 09/20/19 08:43 Dose: 1 tab Documented by: Nicotine (Nicoderm 21 Mg Patch) 1 patch TRANSDERMA DAILY PRN PRN Reason: NICOTINE WITHDRAWAL Nicotine Polacrilex (Nicorette) 2 mg BUCCAL Q2H PRN PRN Reason: NICOTINE WITHDRAWAL Olanzapine (Zyprexa Zydis) 5 mg PO Q4H PRN PRN Reason: Agitation/Psychosis Ondansetron HCl (Zofran) 4 mg PO Q6H PRN PRN Reason: NAUSEA AND VOMITING Prednisone (Prednisone) 40 mg PO DAILY [facility] Stop: 09/24/19 01:00 Last Admin: 09/20/19 08:43 Dose: 40 mg Documented by: Senna/Docusate Sodium (Senna-S) 1 tab PO BID [facility] Last Admin: 09/20/19 16:55 Dose: 1 tab Documented by: Thiamine Mononitrate (Vitamin B-1) 100 mg PO DAILY [facility] Last Admin: 09/20/19 08:43 Dose: 100 mg Documented by: Trazodone HCl (Desyrel) 50 mg PO BEDTIME PRN PRN Reason: SLEEP Mental Status Exam MSE Comments: This is a 29-year-old female who is profoundly obese. Mood is improved and affect is appropriate. Thought processes are integrated and free of any racing, blocking or looseness of association. There is no evidence of psychosis, such as but not limited to hallucinations, delusions or ideas of reference. Speech is of normal rate and volume, without dysarthria, aprosody or pressure. Cognitive functions are intact but insight and judgment are very fragile indeed. Patient denies suicidal or homicidal ideation, plan or intent. Vitals/I&O/Wt Last Vital Signs Temp 98.2 F 09/20/19 13:59 Pulse 101 H 09/20/19 15:57 Resp 18 09/20/19 15:57 BP 152/95 09/20/19 13:59 Pulse Ox 95 09/20/19 15:57 Weight last 48 hrs Weight 266 lb 12.8 oz Physical Exam Narrative: EXAM NARRATIVE: Const: COMMON NORMALS: no acute distress, patient oriented x3 and alert GENERAL APPEARANCE: cooperative, comfortable and anxious NUTRITIONAL APPEARANCE: obese HENMT: COMMON NORMALS: normocephalic HEAD & SCALP: normocephalic MOUTH: Normal oral and palatal mucosa present THROAT: posterior oropharynx normal and uvula midline Eye: COMMON NORMALS: Equal, round and reactive pupils present, EOMs intact bilaterally and normal visual kowalski by confrontation PUPIL: Yes Equal, round and reactive pupils present Neck/C-Spine: COMMON NORMALS: supple GENERAL: Yes normal visual inspection Resp: COMMON NORMALS: normal respiratory effort, No retractions, No use of accessory muscles and clear to auscultation bilaterally AUSCULTATION: clear to auscultation bilaterally Cardio: COMMON NORMALS: regular rate, regular rhythm, S1 normal heart sound present, S2 normal heart sound present, No gallops present (Cardio), No clicks present (Cardio), No murmurs present (Cardio) and Peripheral pulses 2+ throughout RATE: regular rate RHYTHM: regular rhythm HEART SOUNDS: S1 normal heart sound present and S2 normal heart sound present PERIPHERAL PULSES: Peripheral pulses 2+ throughout GI: COMMON NORMALS: Normal to inspection, nondistended, normoactive bowel sounds present, Soft to palpation, non-tender and no masses INSPECTION: Yes central obesity PALPATION: Yes Soft to palpation : COMMON NORMALS: Yes no CVA tenderness BLADDER/KIDNEY EXAM: Yes no CVA tenderness Back/Pelvis: COMMON NORMALS: no CVA tenderness Neuro: COMMON NORMALS: patient oriented x3, CN's II-XII intact bilaterally, moves all extremities, no focal motor deficits and no sensory deficits noted SENSORIUM/ORIENTATION: Yes alert COORDINATION/BALANCE: [id number]-ld-besc test normal and xgpz-ug-[id number] test normal SENSORY EXAM: Yes extremities (intact) MOTOR EXAM: 5/5 motor strength present throughout and No Tremors during motor activity present COORDINATION: roculx-ze-tpci test normal and jwkt-bu-krce test normal Skin: COMMON NORMALS: no rashes or lesions noted GENERAL SKIN EXAM: no rashes or lesions noted and dry skin Data NPU : 09/19/19 23:58 09/16/19 23:41 A&P Assessment and plan (1) Alcohol abuse with alcohol-induced mood disorder: Patient is detoxing without complications. Mood is improved. Status: Acute Involuntary Hold Information 96 Hour Hold: 96 Hour Involuntary Admission: No Attestations NPU Medical Necessity Statement*: The patient may be able to be discharged tomorrow. We shall see. Time Spent in Patient Care: Greater than 35 minutes (>than 50% of time spent in counselling and/or direct pt care on unit). Coding Level of Care Code Acute Display Fabrication Supervisor for Bartolo Lund Diagnoses Alcohol abuse with alcohol-induced mood disorder F10.14
[2019-09-20 20:53] VITALS: BP 149/105; PULSE 20; RESP 74; TEMP 36.8; O2SAT 96
[2019-09-21 04:21] VITALS: PULSE 67; RESP 16; O2SAT 96
[2019-09-21] MEDS: ipratropium-albuterol 3 mL Neb INHALATION (04:21)
[2019-09-21 04:37] VITALS: PULSE 66; RESP 16; O2SAT 96
[2019-09-21 06:00] VITALS: BP 149/81; PULSE 55; RESP 17; TEMP 36.7; O2SAT 96
[2019-09-21] MEDS: buprenorphine-naloxone 4-1 mg Film 2 EACH SUBLINGUAL (07:58)
[2019-09-21] MEDS: fluticasone nasal spray 16gm Btl 2 SPRAY NASAL (07:59)
[2019-09-21] MEDS: multivitamin therapeutic Tablet 1 TAB PO (07:59)
[2019-09-21] MEDS: thiamine 100 mg Tablet PO (07:59)
[2019-09-21] MEDS: loratadine 10 mg Tablet PO (07:59)
[2019-09-21] MEDS: predniSONE 20 mg Tablet 40 MG PO (07:59)
[2019-09-21] MEDS: sennosides-docusate Tablet 1 TAB PO (08:00)
[2019-09-21] MEDS: folic acid 1 mg Tablet PO (08:00)
[2019-09-21] MEDS: LORazepam 0.5 mg Tablet PO (08:00)
--- NOTE | 2019-09-21 08:21 | P.DS_ITS ---
Diagnoses at Discharge Discharge Diagnosis (1) Alcohol abuse with alcohol-induced mood disorder: Status: Acute Problem details: Patient currently detoxed. Reason for Visit Reason for Visit: etoh Hospital Course Hospital Course This woman agrees that she nearly killed herself. She is still manipulating to acquire more controlled substances. We are early on. Discharge Summary The patient has completed CIWA without untoward adverse effects. She continued to manipulate to acquire controlled substances. She is morbidly obese, has 8-10 significant medical problems. I suspect she may not see 40. At the moment she is now stable, not suicidal or homicidal and is deemed safe for discharge, which she is requesting because she has to get to [place] for her appointment with her buprenorphine prescriber. Involuntary Hold Information 96 Hour Hold: 96 Hour Involuntary Admission: No Mental Status Exam MSE Comments: This is a 29-year-old female who is profoundly obese. Mood is improved and affect is appropriate. Thought processes are integrated and free of any racing, blocking or looseness of association. There is no evidence of psychosis, such as but not limited to hallucinations, delusions or ideas of reference. Speech is of normal rate and volume, without dysarthria, aprosody or pressure. Cognitive functions are intact but insight and judgment are very fragile indeed. Patient denies suicidal or homicidal ideation, plan or intent. Physical Exam Narrative: EXAM NARRATIVE: Patient is awake and alert, walking around without apparent shortness of breath or difficulty. She is obese. She has a red enrique laterally under the right eye. Pupils are equally reactive and extraocular movements are intact, conjunctive a noninjected. Nasopharynx with boggy red turbinates and clear drainage noted. Oropharynx with some postnasal drainage and some cobblestoning visualized, no erythema or exudates. Neck is supple with some tenderness in the anterior cervical chain with a less than 1 cm palpable lymph node that is tender. Lungs with some faint inspiratory and expiratory wheezes, no tachypnea, no retractions, no pursed lip breathing, no nasal flaring, good aeration throughout. She has a regular rhythm without any murmurs noted. Abdomen is soft without apparent tenderness. No edema. Gait is normal, face symmetric, speech clear. Discharge Data Data Completed and Pending: Completed Studies During Hospitalization Category Date Time Status CT head wo con* 7 0450 Urgent Cat Scan 09/16/19 23:18 Completed XR chest 1V april ble [id number] Routine Exams 09/19/19 21:13 Completed Pending at discharge Category Date Time Status Streptococcus Cul ture Group A Routi ne Lab 09/19/19 22:00 Received Vitals: Last Vital Signs Temp 98.1 F 09/21/19 06:00 Pulse 55 L 09/21/19 06:00 Resp 17 09/21/19 06:00 BP 149/81 09/21/19 06:00 Pulse Ox 96 09/21/19 06:00 Discharge Plan Discharge Patient Disposition: Home, Self-Care Condition: Stable Prescriptions: Continued albuterol sulfate 90 mcg/actuation HFA aerosol inhaler 2 puff INHALATION Q6H PRN (Reason: shortness of breath or wheezing) 30 Days Qty: 18 RF: 3 budesonide 180 mcg/actuation aerosol powdr breath activated 1 inh INHALATION DAILY 30 Days Qty: 1 RF: 3 Discontinued Buprenorphine HCI tablet 1 tab sublingual TID RF: 0 Discharge Orders: Discharge Order (Routine); Ordered 09/21/19 Ordered By: Rory Valadez Referrals: Dr. Styles [Other] - 09/23/19 3:00 pm ([facility] for Suboxone) [facility] [facility] [Outside] - 1-3 days [facility] [Outside] - 1-3 days (Resource for substance abuse treatment) Discharge Diet: Usual diet Discharge Activity: Resume usual activity Discharge Attestations NPU Time Spent in Discharge Care*: greater than 30 min Specific Discharge Activities: Specific discharge activities: educating patient, discussing with watch case polisher/social workers/dc planners, documenting /other paperwork and evaluating patient/reviewing data Time Spent in Smoking Cessation: Time spent discussing smoking cessation with patient: 3 to 10 minutes Status at Discharge: Cognitive status at discharge: cognitively intact , Behavioral status at discharge: cooperative , Functional status at discharge: independent ambulation Overall status at discharge: patient is back to baseline Coding Level of Care Code Acute Electrical Tester Battery for Bartolo Lund Diagnoses Alcohol abuse with alcohol-induced mood disorder F10.14
[2019-09-21 08:41] VITALS: BP 149/81; PULSE 55; RESP 17; TEMP 36.7; O2SAT 96
== END 2019-09-21 08:49 | disposition home or self-care (01) | DRG 897 ==
LOC: ER 22:56 → NP 09-17 01:22
PROVIDERS: Hospitalist; Physician Assistant; Admitting Provider Psychiatry & Neurology Psychiatry; PCP Nurse Practitioner; Visit Provider Psychiatry & Neurology Psychiatry
DX: F10.229 Alcohol dependence with intoxication, unspecified (principal); Z68.42 Body mass index [BMI] 45.0-49.9, adult; F10.24 Alcohol dependence with alcohol-induced mood disorder; E66.01 Morbid (severe) obesity due to excess calories; F10.239 Alcohol dependence with withdrawal, unspecified; Z91.410 Personal history of adult physical and sexual abuse; Y90.8 Blood alcohol level of 240 mg/100 ml or more
CPT/HCPCS: 12345; 36415; 70450; 71045; 80053; 80307; 81001; 81003; 84145; 84703; 85025; 87081; 87880; 94640; 99283; J0573; J2060; J2765; J3411; J3490; J3535; J7030; J7512; J7626; Q0163

== ENCOUNTER 2019-10-02 12:44 | Inpatient (IN) | payer SELFPAY ==
[2019-10-02] VITALS (7 sets, daily range): BP systolic 115–152; BP diastolic 70–86; PULSE 82–105; RESP 15–18; TEMP 36.5–37.1; O2SAT 90–96; BMI 43.7
--- NOTE | 2019-10-02 13:04 | ECG_ITS ---
[facility] Test Date: 2019-10-02 Pat Name: Wendy De La Cruz Department: Room: Gender: Female Gig Tender: : 1990 Requested By: Lynne Freeman Order Number: [id number] Frieda MD: Arabella Mariscal M.D. Measurements Intervals [place] Rate: 91 P: 81 MO: 153 QRS: 45 QRSD: 93 T: 49 QT: 360 QTc: 444 Interpretive Statements SINUS RHYTHM Compared to ECG 01/10/2019 16:10:06 ST (T wave) deviation no longer present Electronically Signed On 10-03-2019 12:43:35 CDT by Arabella Mariscal M.D. [id number]
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
[2019-10-02 14:23] LABS: Basophils # 0.1 10^3/uL (0.0-0.1); Basophils % 0.8 %; Eosinophils # 0.2 10^3/uL (0.0-0.8); Eosinophils % 2.5 %; Hematocrit 43.9 % (37.0-47.0); Hemoglobin 14.3 g/dL (11.5-15.3); Lymphocytes # 2.2 10^3/uL (0.8-4.8); Lymphocytes % 28.3 %; Mean Corpuscular HGB Conc 32.6 g/dL (30.0-36.0); Mean Corpuscular Hemoglobin 34.7 pg (28.0-34.0); Mean Corpuscular Volume 106.6 fL (81-99); Mean Platelet Volume 9.9 fL (7.4-10.4); Monocytes # 0.3 10^3/uL (0.2-0.9); Monocytes % 3.7 %; Neutrophils % 64.2 %; Nucleated Red Blood Cells % 0 %; Platelet Count 223 10^3/cmm (130-400); Red Blood Count 4.12 10^6/uL (4.1-5.3); White Blood Count 7.6 10^3/uL (4.0-10.0)
[2019-10-02 14:53] LABS: Alanine Aminotransferase 129 U/L (0-33); Alkaline Phosphatase 169 IU/L (35-105); Anion Gap 14.1 (5-19); Aspartate Amino Transferase 141 U/L (0-32); Blood Urea Nitrogen 5 mg/dL (6-20); Calcium 9.1 mg/dL (8.5-10.5); Carbon Dioxide 29 mmol/L (22-29); Chloride 103 mmol/L (98-107); Globulin 3.5 g/dL (1.3-4.6); Glomerular Filtration Rate 98.3 mL/min (90-130); Glucose 89 mg/dL (65-115); Osmolality Calculated 289 mOsm/kg (285-295); Potassium 4.1 mmol/L (3.5-5.1); Sodium 142 mmol/L (136-145); Thyroid Stimulating Hormone 0.97 uIU/mL (0.27-4.20); Total Bilirubin 0.3 mg/dL (0.15-1.2); Total Protein 7.5 g/dL (6.6-8.7)
[2019-10-02 15:03] LABS: Acetaminophen < 5.0 ug/mL (10-30); Salicylate < 0.3 mg/dL (3-10)
[2019-10-02 15:04] LABS: Alcohol Level 300 mg/dL (0-10)
[2019-10-02 15:50] LABS: Add Urine Microscopic? YES; Bilirubin Urine Neg (NEGATIVE); Blood Urine 3+ (Negative); Glucose Urine UA Norm (Normal); Ketones Urine Negative (Negative); Leukocyte Esterase Urine Negative (Negative); Nitrate Urine Negative (Negative); Protein Urine Neg (Negative); Specific Gravity, Urine 1.005 (1.005-1.030); Urine Appearance Clear (CLEAR); Urine Color Straw (Yellow); Urobilinogen Urine Norm (Negative); pH Urine 5 (5-7)
[2019-10-02 15:51] LABS: Add Urine Culture? No; Bacteria Urine 1+; RBC Urine 0-4 /hpf (0-2)
[2019-10-02 15:52] LABS: HCG Qualitative Urine. Negative (Negative)
[2019-10-02 15:58] LABS: Amphetamines Screen Urine Negative (Negative); Barbiturates Screen Urine Negative (Negative); Benzodiazepines Screen Urine Negative (Negative); Cocaine Screen Urine Negative (Negative); Opiate Screen Urine Negative (Negative); PCP Screen Urine Negative (Negative); THC Screen Urine Positive (Negative)
[2019-10-02 16:29] LABS: INR 0.96 (0.8-1.2)
--- NOTE | 2019-10-03 00:46 | PC.NURSE ---
pt offered PRN meds for sleep and anxiety, but refused.
[2019-10-03] MEDS: benztropine 1 mg Tablet PO (04:26)
[2019-10-03] MEDS: OLANZapine 5 mg ODT PO ×2 (04:38→21:58)
[2019-10-03] MEDS: ondansetron 4 MG Tablet PO ×3 (04:38→22:03)
--- NOTE | 2019-10-03 04:43 | PC.NURSE ---
pt complaining of nausea and of her head itching. stated, i feel like i'm dying. i need to go the hospital. pt given PRN cogentin, zyprexa, and zofran.
[2019-10-03 06:00] VITALS: BP 130/72; PULSE 75; RESP 17; TEMP 36.7; O2SAT 92
[2019-10-03] MEDS: folic acid 1 mg Tablet PO (09:44)
[2019-10-03] MEDS: thiamine 100 mg Tablet PO (09:44)
[2019-10-03] MEDS: multivitamin therapeutic Tablet 1 TAB PO (09:44)
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
[2019-10-03 14:00] VITALS: BP 134/87; PULSE 98; RESP 18; TEMP 36.9
[2019-10-03] MEDS: buprenorphine-naloxone 4-1 mg Film 1 EACH SUBLINGUAL (16:18)
[2019-10-03] MEDS: fluoxetine 20 mg Capsule PO (16:18)
[2019-10-03] MEDS: LORazepam 2 mg Tablet PO (16:24)
--- NOTE | 2019-10-03 16:28 | PC.NURSE ---
PT NOTE. CLIENT REPORTS THAT SHE TAKES 8MG OF SUBOXONE TID AND HAS THE SCRIPT AT [facility]. PT RE[ORTS THAT DR PRESCOTT WRITES THE SCRIPT FOR HER. PLEASE VERIFY WITH [facility] ON FRIDAY. [phone]
[2019-10-03 21:42] VITALS: BP 110/77; PULSE 81; RESP 17; TEMP 37; O2SAT 94
[2019-10-03] MEDS: hyDROXYzine 25 mg Capsule 50 MG PO ×2 (21:58→22:02)
[2019-10-03] MEDS: trazodone 50 mg Tablet PO ×2 (21:58→22:03)
--- NOTE | 2019-10-03 22:33 | PC.NURSE ---
Zyprexa given for anxiety / agitation
[2019-10-04 06:00] VITALS: BP 113/64; PULSE 63; RESP 18; TEMP 36.8; O2SAT 95
[2019-10-04] MEDS: thiamine 100 mg Tablet PO (08:25)
[2019-10-04] MEDS: folic acid 1 mg Tablet PO (08:25)
[2019-10-04] MEDS: multivitamin therapeutic Tablet 1 TAB PO (08:25)
[2019-10-04 09:26] VITALS: PULSE 74; RESP 16; O2SAT 97
[2019-10-04] MEDS: buprenorphine-naloxone 4-1 mg Film 2 EACH SUBLINGUAL ×3 (09:34→21:31)
[2019-10-04] MEDS: acetaminophen 325 mg Tablet 650 MG PO (12:07)
--- NOTE | 2019-10-04 13:15 | PC.RESP ---
SMOKING CESSATION INFORMATION SENT TO PATIENT.
--- NOTE | 2019-10-04 13:40 | PM.NPN ---
Subjective NPU Subjective: Interval history: Wendy presents today reporting overwhelming anxiety and withdrawal, but not appearing to be in either. She reported that she was not getting as much medication as she should. She is getting her Suboxone now, and I explained to her that giving opiates and benzodiazepines, at the same time, can at times make staff uncomfortable; but as long as they are following the CIWA protocol, looking at her vital signs, and things of that nature, we should be able to manage both effectively. We had a conversation about how there are concerns about this being another of multiple recent hospitalizations, and her inability to get to a follow up, but she is getting to follow ups with her Suboxone and Subutex, and that for her to improve she needs to manage multiple fronts and concerns that are raised about her just being focused on getting controlled substances. She denied that was the case, so we discussed that we really needed to see her making it to follow ups, after this visit. Mental Status Exam MSE Comments: This is a morbidly obese, white female, with adequate dress, and limited grooming and eye contact. No abnormal movements, except for mild psychomotor retardation. Cooperative with exam in no acute distress. Speech was normal rate and volume. Mood described as sick; affect subdued. Thought process, organized. Thought content: patient denied any suicidal or homicidal ideation, there were no delusions reported or noted, patient denied any auditory or visual hallucinations. Attention, concentration, and memory appear intact but none were formally tested. She is alert and oriented times three. Insight and judgment are impaired. Impulse control is impaired. Intellectual ability appears limited. Vitals/I&O/Wt Last Vital Signs Temp 97.5 F L 10/04/19 20:22 Pulse 60 10/04/19 20:22 Resp 15 10/04/19 20:22 BP 114/73 10/04/19 20:22 Pulse Ox 96 10/04/19 20:22 Weight last 48 hrs Weight 124.341 kg Data NPU : 10/02/19 13:54 10/02/19 13:54 A&P Additional A&P Information (1) Suicidal ideation: (2) H/O drug abuse: (3) Buprenorphine dependence: (4) Alcohol abuse with alcohol-induced mood disorder: (5) Tobacco abuse: (6) Alcohol use disorder: (7) Posttraumatic stress disorder: This is a 29 year old, white female, with post-traumatic stress disorder, depressive disorder, unspecified, anxiety disorder, unspecified, alcohol use disorder, severe, and a history of drug dependence on multiple other agents, who presents reporting that she is withdrawing from her opiates and withdrawing from alcohol, and needing help with her depression and mental health issues, who presents today reporting she is open to ongoing treatment. Continue current medications. Continue q-15 minute checks for safety. Encourage individual, group, and milieu therapy. Recommend follow up at a sober living facility, at the time of discharge, at the highest level of care to which she is willing to commit, preferably inpatient. Involuntary Hold Information 96 Hour Hold: 96 Hour Involuntary Admission: Yes Attestations NPU Medical Necessity Statement*: Inpatient hospitalization is medically necessary and the clinically appropriate intervention at this time. We will monitor medications and make adjustments as indicated. Likely length of stay is 2-4 days. Coding Level of Care Code Acute [employer] for Bartolo Lund
[2019-10-04 14:00] VITALS: BP 127/84; PULSE 61; RESP 16; TEMP 36.6; O2SAT 95
[2019-10-04 20:22] VITALS: BP 114/73; PULSE 60; RESP 15; TEMP 36.4; O2SAT 96
[2019-10-04] MEDS: trazodone 50 mg Tablet PO (21:31)
[2019-10-04] MEDS: hyDROXYzine 25 mg Capsule 50 MG PO (21:31)
--- NOTE | 2019-10-05 03:48 | PC.NURSE ---
At HS, pt was given scheduled saboxone and PRN trazodone and vistaril per request.
[2019-10-05 06:00] VITALS: BP 127/89; PULSE 77; RESP 16; TEMP 36.2; O2SAT 92
[2019-10-05 08:28] VITALS: PULSE 62; RESP 18; O2SAT 96
[2019-10-05] MEDS: folic acid 1 mg Tablet PO (08:52)
[2019-10-05] MEDS: thiamine 100 mg Tablet PO (08:52)
[2019-10-05] MEDS: multivitamin therapeutic Tablet 1 TAB PO (08:52)
[2019-10-05] MEDS: buprenorphine-naloxone 4-1 mg Film 2 EACH SUBLINGUAL ×3 (08:52→21:17)
--- NOTE | 2019-10-05 11:38 | P.PN_ITS ---
Subjective NPU Subjective: Interval history: Wendy presents today reporting that she is feeling a little bit better as far as what is wrong. She is getting her regular dose of Buprenorphine/Suboxone. She did take Vistaril last night and reports that she thinks it may have caused a rash, but she ended up with a rash earlier today and it just seems like the time is a bit off. There is some concern that it may be related to Suboxone because she normally takes Subutex, but we are keeping an eye on that. She reports that she feels like the restless legs that she had been having is diminishing and she reports that she is having a little bit of improvement in her alcohol withdrawal. She reports she is sleeping a lot and eating okay. Mental Status Exam MSE Comments: This is a morbidly obese, white female, with adequate dress, and limited grooming and adequate eye contact. No abnormal movements, except for mild psychomotor retardation. Cooperative with exam in no acute distress. Speech was normal rate and volume. Mood described as a tiny bit better; affect subdued. Thought process, organized. Thought content: patient denied any suicidal or homicidal ideation, there were no delusions reported or noted, patient denied any auditory or visual hallucinations. Attention, concentration, and memory appear intact but none were formally tested. She is alert and oriented times three. Insight and judgment are limited. Impulse control is impaired. Intellectual ability appears limited. Vitals/I&O/Wt Last Vital Signs Temp 97.6 F 10/05/19 20:36 Pulse 67 10/05/19 20:36 Resp 15 10/05/19 20:36 BP 113/72 10/05/19 20:36 Pulse Ox 96 10/05/19 20:36 Data NPU : 10/02/19 13:54 10/02/19 13:54 A&P Additional A&P Information (1) Suicidal ideation: (2) H/O drug abuse: (3) Buprenorphine dependence: (4) Alcohol abuse with alcohol-induced mood disorder: (5) Tobacco abuse: (6) Alcohol use disorder: (7) Posttraumatic stress disorder: This is a 29 year old, white female, with post-traumatic stress disorder, depressive disorder, unspecified, anxiety disorder, unspecified, alcohol use disorder, severe, and a history of drug dependence on multiple other agents, who presents reporting that she is withdrawing from her opiates and withdrawing from alcohol, and needing help with her depression and mental health issues, who presents today with mild improvement. Continue current medications. Continue q-15 minute checks for safety. Encourage individual, group, and milieu therapy. Recommend follow up at a sober living facility, at the time of discharge, at the highest level of care to which she is willing to commit, preferably inpatient. Involuntary Hold Information 96 Hour Hold: 96 Hour Involuntary Admission: Yes Attestations NPU Medical Necessity Statement*: Inpatient hospitalization is medically necessary and the clinically appropriate intervention at this time. We will monitor medications and make adjustments as indicated. Likely length of stay is 1-3 days. Coding Level of Care Code Acute Denial Management Representative for Bartolo Lund
[2019-10-05 14:00] VITALS: BP 152/83; PULSE 73; RESP 18; TEMP 36.4; O2SAT 93
[2019-10-05] MEDS: acetaminophen 325 mg Tablet 650 MG PO (17:40)
[2019-10-05] MEDS: diphenhydrAMINE 25 mg Capsule 50 MG PO (17:41)
[2019-10-05 20:36] VITALS: BP 113/72; PULSE 67; RESP 15; TEMP 36.4; O2SAT 96
[2019-10-05] MEDS: trazodone 50 mg Tablet PO (21:17)
[2019-10-06 06:00] VITALS: BP 93/60; PULSE 58; RESP 17; TEMP 36.4; O2SAT 93
[2019-10-06] MEDS: multivitamin therapeutic Tablet 1 TAB PO (08:25)
[2019-10-06] MEDS: buprenorphine-naloxone 4-1 mg Film 2 EACH SUBLINGUAL ×3 (08:25→21:34)
[2019-10-06] MEDS: thiamine 100 mg Tablet PO (08:25)
[2019-10-06] MEDS: folic acid 1 mg Tablet PO (08:25)
[2019-10-06] MEDS: albuterol 8 gm MDI 2 PUFF INHALATION (08:41)
[2019-10-06 08:42] VITALS: PULSE 79; RESP 18; O2SAT 98
[2019-10-06] MEDS: acetaminophen 325 mg Tablet 650 MG PO ×2 (09:19→14:48)
--- NOTE | 2019-10-06 11:40 | PM.NPN ---
Subjective NPU Subjective: Interval history: Wendy presents today reporting she is doing fine with the medication. She really would have wished that her detox was managed better with more Ativan, but she continues to not display significant autonomic dysfunction during the withdraw, which we reported could mean that you are drinking different amounts than you think you are, because if you are drinking a lot, it is hard to really track what you drink. Most people do not keep tabs, they only estimate. Additionally, some people do not have active withdrawal that is marked by the blood pressure and pulse changes and generally they just do not have withdrawal, which she did not seem to have much withdraw even though she reported a lot of withdrawal. We explained to her that we reached out to her treatment team about concerns about the safety of her having the Subutex as well as beginning her Suboxone instead of the Subutex. We discussed the risks, benefits, and alternatives of her discharging tomorrow, and she understood and agreed to proceed as is documented in this note. Mental Status Exam MSE Comments: This is a morbidly obese, white female, with adequate dress, and limited grooming and adequate eye contact. No abnormal movements, except for decreasing psychomotor retardation. Cooperative with exam in no acute distress. Speech was normal rate and volume. Mood described as better; affect brighter. Thought process, organized. Thought content: patient denied any suicidal or homicidal ideation, there were no delusions reported or noted, patient denied any auditory or visual hallucinations. Attention, concentration, and memory appear intact but none were formally tested. She is alert and oriented times three. Insight and judgment are limited, but improving. Impulse control is impaired. Intellectual ability appears limited. Vitals/I&O/Wt Last Vital Signs Temp 97.0 F L 10/06/19 20:49 Pulse 74 10/06/19 21:45 Resp 18 10/06/19 21:45 BP 102/65 10/06/19 20:49 Pulse Ox 97 10/06/19 21:45 Data NPU : 10/02/19 13:54 10/02/19 13:54 A&P Additional A&P Information (1) Suicidal ideation: (2) H/O drug abuse: (3) Buprenorphine dependence: (4) Alcohol abuse with alcohol-induced mood disorder: (5) Tobacco abuse: (6) Alcohol use disorder: (7) Posttraumatic stress disorder: This is a 29 year old, white female, with post-traumatic stress disorder, depressive disorder, unspecified, anxiety disorder, unspecified, alcohol use disorder, severe, and a history of drug dependence on multiple other agents, who presents reporting that she is withdrawing from her opiates and withdrawing from alcohol, and needing help with her depression and mental health issues, who presents today with continued improvement. Continue current medications. Continue q-15 minute checks for safety. Encourage individual, group, and milieu therapy. Recommend follow up at a sober living facility, at the time of discharge, at the highest level of care to which she is willing to commit, preferably inpatient. Involuntary Hold Information 96 Hour Hold: 96 Hour Involuntary Admission: Yes Attestations NPU Medical Necessity Statement*: Inpatient hospitalization is medically necessary and the clinically appropriate intervention at this time. We will monitor medications and make adjustments as indicated. Likely length of stay is 1-2 days. Plan for d/c tomorrow Coding Level of Care Code Acute Pharmacy Intake Coordinator for Bartolo Lund
[2019-10-06 14:00] VITALS: BP 128/89; PULSE 85; RESP 18; TEMP 36.8; O2SAT 96
[2019-10-06 20:49] VITALS: BP 102/65; PULSE 55; RESP 14; TEMP 36.1; O2SAT 98
[2019-10-06] MEDS: trazodone 150 mg Tablet PO (21:34)
[2019-10-06 21:45] VITALS: PULSE 74; RESP 18; O2SAT 97
[2019-10-06] MEDS: diphenhydrAMINE 25 mg Capsule PO (23:26)
--- NOTE | 2019-10-06 23:46 | PC.NURSE ---
pt given scheduled suboxzone, trazodone and PRN benadryl per request.
[2019-10-07 06:00] VITALS: BP 117/76; PULSE 62; RESP 19; TEMP 36.2; O2SAT 95
[2019-10-07] MEDS: folic acid 1 mg Tablet PO (08:21)
[2019-10-07] MEDS: buprenorphine-naloxone 4-1 mg Film 2 EACH SUBLINGUAL (08:21)
[2019-10-07] MEDS: thiamine 100 mg Tablet PO (08:21)
[2019-10-07] MEDS: multivitamin therapeutic Tablet 1 TAB PO (08:21)
[2019-10-07] MEDS: acetaminophen 325 mg Tablet 650 MG PO (08:23)
[2019-10-07 08:53] VITALS: PULSE 107; RESP 18; O2SAT 99
[2019-10-07] MEDS: albuterol 8 gm MDI 2 PUFF INHALATION (08:53)
[2019-10-07] MEDS: budesonide 0.5 mg/2 mL Neb 0.25 MG INHALATION (08:53)
[2019-10-07 08:54] VITALS: PULSE 110
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
[2019-10-07] MEDS: fluoxetine 20 mg Capsule PO (11:19)
[2019-10-07 11:43] VITALS: PULSE 110
== END 2019-10-07 13:15 | disposition home or self-care (01) | DRG 897 ==
LOC: ER 16:15 → NP 16:20
PROVIDERS: Emergency Medicine; Admitting Provider Psychiatry & Neurology Psychiatry; PCP Nurse Practitioner; Visit Provider Psychiatry & Neurology Psychiatry
DX: F10.24 Alcohol dependence with alcohol-induced mood disorder (principal); R45.851 Suicidal ideations; F11.20 Opioid dependence, uncomplicated; Z68.42 Body mass index [BMI] 45.0-49.9, adult; F17.210 Nicotine dependence, cigarettes, uncomplicated; F43.11 Post-traumatic stress disorder, acute; E66.9 Obesity, unspecified; M79.7 Fibromyalgia; B19.20 Unspecified viral hepatitis C without hepatic coma
CPT/HCPCS: 12345; 36415; 80053; 80306; 80307; 81001; 81003; 81025; 84443; 85025; 85610; 93005; 94640; 99284; J0573; J3535; J7626; Q0162

== ENCOUNTER 2019-11-12 14:40 | Inpatient (IN) | payer SELFPAY ==
[2019-11-12 14:43] VITALS: BP 151/106; PULSE 102; RESP 18; TEMP 36.8; O2SAT 89; BMI 51.5
[2019-11-12 14:53] VITALS: O2SAT 93
--- NOTE | 2019-11-12 15:25 | XR_ITS ---
WS: [id number] Portable AP upright chest, 11/12/2019 Clinical Data: dyspnea/cough Comparison: Portable chest, 09/19/2019. Findings: No nodules, masses or effusions are seen. The heart is normal. The pulmonary vascularity is not increased. No pneumonia or pneumothorax is seen. The patient has a poor inspiratory effort. Ther e are monitor leads on the chest wall. XR/XR chest 1V portable [id number] Impression: Negative chest.
--- NOTE | 2019-11-12 15:25 | ECG_ITS ---
[facility] Test Date: 2019-11-12 Pat Name: Wendy De La Cruz Department: Room: Gender: Female Ict Quality Assurance Engineer: : 1990 Requested By: Jeyson Freeman Order Number: [id number] Frieda MD: Pablo Quiñones M.D. Measurements Intervals Gordon Rate: 87 P: 67 DC: 152 QRS: 26 QRSD: 79 T: 37 QT: 366 QTc: 442 Interpretive Statements SINUS RHYTHM SEPTAL MYOCARDIAL INFARCTION , OF INDETERMINATE AGE [40+ ms Q WAVE IN V1/V2] Compared to ECG 10/02/2019 14:43:40 Myocardial infarct finding now present Electronically Signed On 11-12-2019 21:14:28 CDT by Pablo Quiñones M.D. [id number]
--- NOTE | 2019-11-12 15:27 | ED_ITS ---
HPI - Alcohol General: Chief Complaint: Alcohol Stated Complaint: ETOH/ OD/ FALL/ COMBATIVE Time Seen by Provider: 11/12/19 14:42 History of Present Illness: HPI narrative: 29-year-old massively obese female who presents self-admittedly extremely intoxicated after drinking a lot of alcohol. Patient admits to drinking a lot of alcohol on a daily basis. She had called the emergency room earlier today stating she wanted to be seen we advised her to either come to the emergency room by private vehicle or call an ambulance if needed we have and offered to call an ambulance for her but she would not give us her location. Eventually she did call an ambulance herself was brought in by EMS and in route she became somewhat combative and was given 250 mg of ketamine. She is lethargic and pleasantly hallucinating on arrival after the combination of alcohol and ketamine. 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 Recent trauma: No Associated symptoms: Deny abdominal pain, diaphoresis, hematemesis, melena, nausea, suicidal ideation, syncope or vomiting Treatments prior to arrival: chemical restraints (Ketamine 250 mg) Review of Systems Const: Denies: diaphoresis Eyes: Denies: change in vision or blurry vision Card: Denies: chest pain, palpitations, irregular heart rhythm, edema, syncope, dyspnea on exertion, orthopnea or leg pain with exertion Resp: Denies: dyspnea, productive cough, non-productive cough or wheezing GI: Denies: abdominal pain, nausea, vomiting, hematemesis or melena : Denies: flank pain, dysuria, urinary frequency, urinary urgency, urinary incontinence or hematuria Psych: Denies: suicidal ideation [facility] ED PFSH: Medical History Alcohol abuse with alcohol-induced mood disorder Patient currently detoxed. Allergic rhinitis, unspecified Essential (primary) hypertension not on any chronic treatment 09/26 Family history of alpha 1 antitrypsin deficiency Fibromyalgia Generalized anxiety disorder H/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, includes meth, heroin, others, on buprenorphine Hepatitis C antibody positive in blood hepatomegaly, splenomegaly, low platelets transiently noted -09/26, no treatment Hx of abscess of skin and subcutaneous tissue right arm Major depressive disorder, recurrent, moderate Nontoxic thyroid nodule Polycystic ovarian syndrome polycystic ovaries not notated on CT abdomen/pelvis 01/26 Unspecified asthma, uncomplicated onset in childhood Surgical History Hx of cholecystectomy Family History Other Viyia-3-yhvjjjnssvz deficiency Drug abuse, amphetamine type Hypertension Social History Smoking and tobacco status: current every day smoker cigarettes Packs smoked per day: 1.5 Years cigarettes smoked: 15 Quit status (tobacco): considering quitting Second hand smoke exposure: Yes Smoking risk assessment/counseling performed?: Yes Alcohol intake: current Alcohol intake frequency: 0-2 Drinks per Day Alcohol type: hard liquor Desire information about alcohol rehabilitation?: Yes Counseling given: No Desire information about substance/drug rehabilitation?: No Counseling given: No Adopted: No Caregiver/support person: No Lives independently: Yes Household members: friend(s) Housing: Manufactured/Mobile home Marital status: Single Number of children: 2 service: No Current occupational status: employed History of recent travel: No Current gender identity: Female Female Reproductive History: Date of last menstrual period: 08/24/19 Para: 2 Physical Exam Const: COMMON NORMALS: no acute distress GENERAL APPEARANCE: cooperative and comfortable HENMT: COMMON NORMALS: normocephalic, atraumatic, hearing grossly normal bilaterally, external ears normal, EAC's normal, TM's normal bilaterally, Normal nasal mucous membranes and turbinates present, moist oral mucous membranes and oropharynx normal HEAD & SCALP: normocephalic and atraumatic NOSE: Normal nasal mucous membranes and turbinates present EXTERNAL EAR: Yes external ears normal EXTERNAL AUDITORY CANAL: EAC's normal TYMPANIC MEMBRANE: TM's n ormal bilaterally Eye: COMMON NORMALS: Equal, round and reactive pupils present, EOMs intact bilaterally, conjunctivae normal and no scleral icterus CONJUNCTIVA: Yes conjunctivae normal PUPIL: Yes Equal, round and reactive pupils present Neck/C-Spine: COMMON NORMALS: no JVD Resp: COMMON NORMALS: normal respiratory effort, No retractions, No use of accessory muscles and clear to auscultation bilaterally AUSCULTATION: clear to auscultation bilaterally Cardio: COMMON NORMALS: no JVD, regular rate, regular rhythm and No murmurs present (Cardio) RATE: regular rate RHYTHM: regular rhythm GI: COMMON NORMALS: Soft to palpation and No hepatosplenomegaly present AUSCULTATION: Yes normoactive bowel sounds PALPATION: Yes Soft to palpation, No Tenderness to palpation present (GI), No Guarding due to palpation present (GI) and Yes No hepatosplenomegaly present Extremity: COMMON NORMALS: normal to inspection, capillary refill normal, no clubbing, cyanosis or edema, no calf tenderness and no pedal edema Skin: COMMON NORMALS: no rashes or lesions noted GENERAL SKIN EXAM: no rashes or lesions noted Course Vital Signs: Vital signs: Vital Signs Temperature 98.1 F 11/17/19 06:00 Pulse Rate 49 L 11/17/19 06:00 Respiratory Rate 16 11/17/19 06:00 Blood Pressure 104/65 11/17/19 06:00 Pulse Oximetry 96 11/17/19 06:00 MDM - Alcohol MDM Narrative: Medical decision making narrative: Patient severely intoxicated. She is wanting to stop I discussed with Dr. 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 Lab Data: Labs: Lab Results 11/12/19 11/12/19 11/12/19 Range/Units 15:41 15:41 15:41 WBC 5.7 (4.0-10.0) 10^3/ uL RBC 4.21 (4.1-5.3) 10^6/u L Hgb 14.5 (11.5-15.3) g/dL Hct 45.4 (37.0-47.0) % MCV 107.8 H (81-99) fL MCH 34.4 H (28.0-34.0) pg MCHC 31.9 (30.0-36.0) g/dL RDW 13.6 (12.1-15.1) % Plt Count 160 (130-400) 10^3/c mm MPV 9.1 (7.4-10.4) fL Neut % (Auto) 44.2 % Lymph % (Auto) 45.9 % Harnett % (Auto) 5.3 % Eos % (Auto) 3.4 % Baso % (Auto) 0.7 % Neut # (Auto) 2.50 (1.8-7.7) 10^3/u L Lymph # (Auto) 2.6 (0.8-4.8) 10^3/u L Harnett # (Auto) 0.3 (0.2-0.9) 10^3/u L Eos # (Auto) 0.2 (0.0-0.8) 10^3/u L Baso # (Auto) 0.0 (0.0-0.1) 10^3/u L Nucleated RBC % (a uto) 0 % Nucleated RBCs # 0.0 /100WBC Sodium 150 H (136-145) mmol/L Potassium 3.7 (3.5-5.1) mmol/L Chloride 112 H (98-107) mmol/L Carbon Dioxide 28 (22-29) mmol/L Anion Gap 13.7 (5-19) BUN 5 L (6-20) mg/dL Creatinine 0.9 (0.5-0.9) mg/dL GFR Calculation 73.5 L (90-130) mL/min Glucose 100 (65-115) mg/dL Calculated Osmolal ity 306 H (285-295) mOsm/k g Calcium 8.2 L (8.5-10.5) mg/dL Total Bilirubin 0.4 (0.15-1.2) mg/dL AST 170 H (0-32) U/L ALT 116 H (0-33) U/L Alkaline Phosphata se 104 (35-105) IU/L Total Protein 7.5 (6.6-8.7) g/dL Albumin 3.5 (3.5-5.2) g/dL Globulin 4.0 (1.3-4.6) g/dL Lipase 36 (13-60) U/L HCG, Qual (Negative) Urine Color (Yellow) Urine Appearance (CLEAR) Urine pH (5-7) Ur Specific Gravit y (1.005-1.030) Urine Protein (Negative) Urine Glucose (UA) (Normal) Urine Ketones (Negative) Urine Blood (Negative) Urine Nitrate (Negative) Urine Bilirubin (NEGATIVE) Urine Urobilinogen (Negative) mg/dL Ur Leukocyte Louisa ase (Negative) Salicylates < 0.3 L (3-10) mg/dL Urine Opiates Scre en (Negative) ng/mL Acetaminophen < 5.0 L (10-30) ug/mL Ur Barbiturates Sc reen (Negative) ng/mL Ur Phencyclidine S crn (Negative) ng/mL Ur Amphetamines Sc reen (Negative) ng/mL U Benzodiazepines Scrn (Negative) ng/mL Urine Cocaine Scre en (Negative) ng/mL U Marijuana (THC) Screen (Negative) ng/mL Ethyl Alcohol 404 H* (0-10) mg/dL 11/12/19 11/12/19 11/12/19 Range/Units 16:07 16:07 16:07 WBC (4.0-10.0) 10^3/ uL RBC (4.1-5.3) 10^6/u L Hgb (11.5-15.3) g/dL Hct (37.0-47.0) % MCV (81-99) fL MCH (28.0-34.0) pg MCHC (30.0-36.0) g/dL RDW (12.1-15.1) % Plt Count (130-400) 10^3/c mm MPV (7.4-10.4) fL Neut % (Auto) % Lymph % (Auto) % Harnett % (Auto) % Eos % (Auto) % Baso % (Auto) % Neut # (Auto) (1.8-7.7) 10^3/u L Lymph # (Auto) (0.8-4.8) 10^3/u L Harnett # (Auto) (0.2-0.9) 10^3/u L Eos # (Auto) (0.0-0.8) 10^3/u L Baso # (Auto) (0.0-0.1) 10^3/u L Nucleated RBC % (a uto) % Nucleated RBCs # /100WBC Sodium (136-145) mmol/L Potassium (3.5-5.1) mmol/L Chloride (98-107) mmol/L Carbon Dioxide (22-29) mmol/L Anion Gap (5-19) BUN (6-20) mg/dL Creatinine (0.5-0.9) mg/dL GFR Calculation (90-130) mL/min Glucose (65-115) mg/dL Calculated Osmolal ity (285-295) mOsm/k g Calcium (8.5-10.5) mg/dL Total Bilirubin (0.15-1.2) mg/dL AST (0-32) U/L ALT (0-33) U/L Alkaline Phosphata se (35-105) IU/L Total Protein (6.6-8.7) g/dL Albumin (3.5-5.2) g/dL Globulin (1.3-4.6) g/dL Lipase (13-60) U/L HCG, Qual Negative (Negative) Urine Color Yellow (Yellow) Urine Appearance Clear (CLEAR) Urine pH 5 (5-7) Ur Specific Gravit y 1.005 (1.005-1.030) Urine Protein Neg (Negative) Urine Glucose (UA) Norm (Normal) Urine Ketones Negative (Negative) Urine Blood Neg (Negative) Urine Nitrate Negative (Negative) Urine Bilirubin Neg (NEGATIVE) Urine Urobilinogen Norm (Negative) mg/dL Ur Leukocyte Louisa ase Negative (Negative) Salicylates (3-10) mg/dL Urine Opiates Scre en Negative (Negative) ng/mL Acetaminophen (10-30) ug/mL Ur Barbiturates Sc reen Negative (Negative) ng/mL Ur Phencyclidine S crn Negative (Negative) ng/mL Ur Amphetamines Sc reen Negative (Negative) ng/mL U Benzodiazepines Scrn Negative (Negative) ng/mL Urine Cocaine Scre en Negative (Negative) ng/mL U Marijuana (THC) Screen Positive H (Negative) ng/mL Ethyl Alcohol (0-10) mg/dL Discharge Plan Discharge Patient Disposition: Admitted As Inpatient Admit Provider: Jon Barboza Clinical Impression: Alcoholic intoxication, Alcohol abuse with alcohol-induced mood disorder, H/O drug abuse, Essential (primary) hypertension, Hepatitis C antibody positive in blood, Buprenorphine dependence Condition: Stable Referrals: [facility] [place] [facility] [Outside] - 1-3 days (call and request outpatient mental health services. ) [facility] [Outside] - 1-3 days (if you change your mind and you do want substance abuse treatment in this area, call and request initial intake. ) Additional Instructions: AA meeting: Friday at 8:[address], [address] Discharge Date/Time: 11/12/19 20:14 Coding Level of Care Code ED Scientific Editor for Jerg Fwd Exam Comprehensive
[2019-11-12 15:42] VITALS: BP 131/92; PULSE 87; RESP 13; O2SAT 98
[2019-11-12 16:00] LABS: Basophils % 0.7 %; Eosinophils # 0.2 10^3/uL (0.0-0.8); Eosinophils % 3.4 %; Hematocrit 45.4 % (37.0-47.0); Hemoglobin 14.5 g/dL (11.5-15.3); Lymphocytes # 2.6 10^3/uL (0.8-4.8); Lymphocytes % 45.9 %; Mean Corpuscular HGB Conc 31.9 g/dL (30.0-36.0); Mean Corpuscular Hemoglobin 34.4 pg (28.0-34.0); Mean Corpuscular Volume 107.8 fL (81-99); Mean Platelet Volume 9.1 fL (7.4-10.4); Monocytes # 0.3 10^3/uL (0.2-0.9); Monocytes % 5.3 %; Neutrophils % 44.2 %; Nucleated Red Blood Cells % 0 %; Platelet Count 160 10^3/cmm (130-400); Red Blood Count 4.21 10^6/uL (4.1-5.3); Red Cell Distribution Width 13.6 % (12.1-15.1); White Blood Count 5.7 10^3/uL (4.0-10.0)
[2019-11-12] MEDS: ondansetron 2 mg/ML SDV 2 mL 4 MG IVP (16:02)
[2019-11-12] MEDS: sodium chloride 0.9% 1,000 ML 999 ML IV (16:02)
[2019-11-12 16:11] LABS: Add Urine Microscopic? NO
[2019-11-12 16:16] LABS: Bilirubin Urine Neg (NEGATIVE); Blood Urine Neg (Negative); Glucose Urine UA Norm (Normal); Ketones Urine Negative (Negative); Leukocyte Esterase Urine Negative (Negative); Nitrate Urine Negative (Negative); Protein Urine Neg (Negative); Specific Gravity, Urine 1.005 (1.005-1.030); Urine Appearance Clear (CLEAR); Urine Color Yellow (Yellow); Urobilinogen Urine Norm (Negative); pH Urine 5 (5-7)
[2019-11-12 16:17] LABS: HCG Qualitative Urine. Negative (Negative)
[2019-11-12 16:20] LABS: Alanine Aminotransferase 116 U/L (0-33); Albumin Level 3.5 g/dL (3.5-5.2); Alkaline Phosphatase 104 IU/L (35-105); Anion Gap 13.7 (5-19); Aspartate Amino Transferase 170 U/L (0-32); Blood Urea Nitrogen 5 mg/dL (6-20); Calcium 8.2 mg/dL (8.5-10.5); Carbon Dioxide 28 mmol/L (22-29); Chloride 112 mmol/L (98-107); Creatinine Clr Calc Pharmacy 125.8949; Glomerular Filtration Rate 73.5 mL/min (90-130); Glucose 100 mg/dL (65-115); Lipase 36 U/L (13-60); Osmolality Calculated 306 mOsm/kg (285-295); Potassium 3.7 mmol/L (3.5-5.1); Sodium 150 mmol/L (136-145); Total Bilirubin 0.4 mg/dL (0.15-1.2); Total Protein 7.5 g/dL (6.6-8.7)
[2019-11-12 16:23] LABS: Alcohol Level 404 mg/dL (0-10)
[2019-11-12 16:26] LABS: Amphetamines Screen Urine Negative (Negative); Barbiturates Screen Urine Negative (Negative); Benzodiazepines Screen Urine Negative (Negative); Cocaine Screen Urine Negative (Negative); Opiate Screen Urine Negative (Negative); PCP Screen Urine Negative (Negative); THC Screen Urine Positive (Negative)
[2019-11-12 17:00] VITALS: PULSE 92; RESP 21; O2SAT 92
--- NOTE | 2019-11-12 17:57 | PC.NURSE ---
pt not making suicidal statements but pt does say she thinks she needs to go to stress [facility] because her life is just so messy .
[2019-11-12 18:04] LABS: Acetaminophen < 5.0 ug/mL (10-30); Salicylate < 0.3 mg/dL (3-10)
[2019-11-12 20:12] VITALS: BMI 51.5
[2019-11-12 20:13] VITALS: BP 131/86; PULSE 91; RESP 20; O2SAT 96
[2019-11-12 21:04] VITALS: BP 167/109; PULSE 94; RESP 22; TEMP 36.9; O2SAT 97
[2019-11-12 21:54] LABS: Alcohol Level 255 mg/dL (0-10)
[2019-11-13] MEDS: albuterol 8 gm MDI 2 PUFF INHALATION ×2 (01:05→20:02)
[2019-11-13 01:06] VITALS: PULSE 77; RESP 18; O2SAT 98
[2019-11-13 06:00] VITALS: BP 164/104; PULSE 63; RESP 20; TEMP 37.2; O2SAT 97
[2019-11-13] MEDS: LORazepam 2 mg Tablet PO ×3 (06:14→20:16)
--- NOTE | 2019-11-13 06:15 | PC.NURSE ---
PRN ATIVAN ADMINISTERED ATIVAN 2 MG PER CIWA PROTOCOL. CIWA SCORE 12. WILL MONITOR FOR MEDICATION EFFECTIVENESS.
[2019-11-13 08:24] VITALS: PULSE 63; RESP 20; O2SAT 97
[2019-11-13] MEDS: thiamine 100 mg Tablet PO (09:17)
[2019-11-13] MEDS: folic acid 1 mg Tablet PO (09:18)
[2019-11-13] MEDS: fluoxetine 20 mg Capsule PO (09:18)
[2019-11-13] MEDS: multivitamin therapeutic Tablet 1 TAB PO (09:18)
[2019-11-13] MEDS: buprenorphine-naloxone 4-1 mg Film 2 EACH SUBLINGUAL ×3 (09:19→20:16)
--- NOTE | 2019-11-13 09:29 | P.HP_ITS ---
Providers/Chief Complaint Admitting Physician: Jon Barboza MD Primary Care Provider: NAVIN ChoudharyC Chief Complaint: ETOH/ OD/ FALL/ COMBATIVE HPI NPU History of Present Illness Chief complaint: My medications really are not working for me. They do not give me any energy. Wendy De La Cruz is a 29 year old female who now presents for the sixth time this calendar year for admission to the psychiatric unit if alcohol poisoning. She presented the emergency room with a blood alcohol level of 404. She was discharged from this unit 35 days ago. She apparently has not been doing much of anything other than ingesting alcohol and taking her Suboxone. She did not report to [facility] because she says she cannot afford it. She is not receiving any out patient therapy other than Suboxone from the [facility] who she says gives it to her for free. She continues to state that going to rehab is not something she is interested in. Her goal at this time is to sober up and feel better. She denies suicidal or homicidal ideation. ER physician HPI narrative: 29-year-old massively obese female who presents self-admittedly extremely intoxicated after drinking a lot of alcohol. Patient admits to drinking a lot of alcohol on a daily basis. She had called the emergency room earlier today stating she wanted to be seen we advised her to either come to the emergency room by private vehicle or call an ambulance if needed we have and offered to call an ambulance for her but she would not give us her location. Eventually she did call an ambulance herself was brought in by EMS and in route she became somewhat combative and was given 250 mg of ketamine. She is lethargic and pleasantly hallucinating on arrival after the combination of alcohol and ketamine. She has several bruises of varying ages on her extremities and an abrasion on her right anterior tibia complaint: alcohol intoxication Laboratory Tests 09/04/19 09/08/19 11/12/19 20:54 14:13 15:41 AST 170 H ALT 116 H Alkaline Phosphatase 104 Urine Opiates Screen Ur Barbiturates Screen Ur Phencyclidine Scrn Ur Amphetamines Screen U Benzodiazepines Scrn Urine Cocaine Screen U Marijuana (THC) Screen Ethyl Alcohol 387 H* 393 H* 404 H* 11/12/19 11/12/19 16:07 19:57 AST ALT Alkaline Phosphatase Urine Opiates Screen Negative Ur Barbiturates Screen Negative Ur Phencyclidine Scrn Negative Ur Amphetamines Screen Negative U Benzodiazepines Scrn Negative Urine Cocaine Screen Negative U Marijuana (THC) Screen Positive H Ethyl Alcohol 255 H Mental health history: Unchanged from 10/03/2019 Social history: Unchanged from a 03 October 2019 Meds NPU Home Medications Medication Instructions Recorded Confirmed Last Taken Type budesonide 1 inh INHALATION DAILY 30 Days #1 09/21/19 11/12/19 Unknown Rx each buprenorphine-naloxone 1 film BUCCAL TID 10/02/19 10/02/19 11/12/19 History fluoxetine 20 mg PO DAILY 30 Days #30 cap 10/07/19 Unknown Rx trazodone 150 mg PO BEDTIME 30 Days #30 tab 10/07/19 11/11/19 Rx Allergies Allergy/AdvReac Type Severity Reaction Status Date / Time codeine Allergy Unknown ALGY-Hives Verified 11/12/19 14:51 PFSH NPU PFSH: Medical History Alcohol abuse with alcohol-induced mood disorder Patient currently detoxed. Allergic rhinitis, unspecified Essential (primary) hypertension not on any chronic treatment 09/26 Family history of alpha 1 antitrypsin deficiency Fibromyalgia Generalized anxiety disorder H/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, includes meth, heroin, others, on buprenorphine Hepatitis C antibody positive in blood hepatomegaly, splenomegaly, low platelets transiently noted -09/26, no treatment Hx of abscess of skin and subcutaneous tissue right arm Major depressive disorder, recurrent, moderate Nontoxic thyroid nodule Polycystic ovarian syndrome polycystic ovaries not notated on CT abdomen/pelvis 01/26 Unspecified asthma, uncomplicated onset in childhood Surgical History Hx of cholecystectomy Family History Other Vmqxr-[id number] deficiency Drug abuse, amphetamine type Hypertension Social History Smoking and tobacco status: current every day smoker cigarettes Packs smoked per day: 1.5 Years cigarettes smoked: 15 Quit status (tobacco): considering quitting Second hand smoke exposure: Yes Smoking risk assessment/counseling performed?: Yes Alcohol intake: current Alcohol intake frequency: 0-2 Drinks per Day Alcohol type: hard liquor Desire information about alcohol rehabilitation?: Yes Counseling given: No Desire information about substance/drug rehabilitation?: No Counseling given: No Adopted: No Caregiver/support person: No Lives independently: Yes Household members: friend(s) Housing: Manufactured/Mobile home Marital status: Single Number of children: 2 service: No Current occupational status: employed History of recent travel: No Current gender identity: Female Female Reproductive History: Para: 2 Mental Status Exam MSE Comments: Mental Status Exam: Appearance: hygiene is fair; no gross neurological deficits., gait is unremarkable; AIMS=0 Speech: Speech is of normal rate and rhythm and easily understood. Thought processes: Thought processes are abstract. Judgment is not adequate for safety. Associations: intact Psychotic processes: There is no indication of guarding or paranoia. There is no attention to the internal stimuli. Auditory and visual hallucinations are denied. Judgment: Insight is fair. Problem solving skills are adequate for safety. Orientation: The patient is oriented to person, place time and situation. Memory: no deficits noted in immediate, intermediate, or remote spheres. Attention: The patient is alert and interpersonally engaged. Language: Verbalizations are coherent. Fund of knowledge: Fund of knowledge is adequate. Affect/Mood: Affect is consistent with a depressed mood. pt denies suicidal ideation Affective range is appropriate. Psychosis: perception unimpaired except through cognitive distortion; reality testing intact. Vitals/I&O/Wt Last Vital Signs Temp 98.9 F 11/13/19 06:00 Pulse 63 11/13/19 08:24 Resp 20 H 11/13/19 08:24 BP 164/104 11/13/19 06:00 Pulse Ox 97 11/13/19 08:24 Weight last 48 hrs Weight 136.078 kg Weight 136.078 kg Data NPU : 11/12/19 15:41 11/12/19 15:41 A&P Additional A&P Information Due to the psychiatric conditions and treatment listed in the Assessment and Plan - the patient requires continued hospitalization. Will provide a safe and therapeutic environment for patient.. Will continue inpatient treatment to allow for medication adjustment and monitoring. Will continue q15 min safety checks. Will continue current medications and monitor for medication side effects. She is placed on the alcohol withdrawal protocol. Monitor patient's mood, sleep, appetite, and behavior closely. Encourage patient to participate in individual and group therapeutic sessions on the [facility]. Estimated length of stay 5 days The expected benefits and potential side effects of patient's psychiatric medications were discussed with the patient. The patient understands and consents to treatment. CRITERIA FOR DISCHARGE: stable on medications and no longer an imminent threat to self or others Involuntary Hold Information 96 Hour Hold: 96 Hour Involuntary Admission: Yes 96 Hour Hold Ending Date: 11/19/19 96 Hour Hold Ending Time: 17:50 Attestations NPU Medical Necessity Statement*: Patient will remain in the hospital another 3 to 5 days while she negotiates of the alcohol withdrawal process. Coding Level of Care Code Acute Crankshaft Balancer for Bartolo Lund
[2019-11-13 14:00] VITALS: BP 160/115; PULSE 65; RESP 18; TEMP 37.3; O2SAT 91
[2019-11-13 20:03] VITALS: PULSE 71; RESP 16; O2SAT 98
[2019-11-13] MEDS: budesonide 0.5 mg/2 mL Neb INHALATION (20:03)
[2019-11-13] MEDS: trazodone 150 mg Tablet PO (20:16)
[2019-11-13 20:53] VITALS: BP 134/85; PULSE 71; RESP 19; TEMP 37.2; O2SAT 97
[2019-11-14 06:00] VITALS: BP 125/77; PULSE 76; RESP 18; TEMP 36.6; O2SAT 97
[2019-11-14] MEDS: thiamine 100 mg Tablet PO (07:55)
[2019-11-14] MEDS: multivitamin therapeutic Tablet 1 TAB PO (07:55)
[2019-11-14] MEDS: folic acid 1 mg Tablet PO (07:55)
[2019-11-14] MEDS: buprenorphine-naloxone 4-1 mg Film 2 EACH SUBLINGUAL ×3 (07:56→20:50)
[2019-11-14] MEDS: fluoxetine 20 mg Capsule PO (07:56)
[2019-11-14] MEDS: LORazepam 2 mg Tablet PO ×3 (07:56→23:19)
[2019-11-14] MEDS: albuterol 8 gm MDI 2 PUFF INHALATION ×2 (09:26→20:10)
[2019-11-14 09:52] VITALS: PULSE 100; RESP 18; O2SAT 95
--- NOTE | 2019-11-14 09:52 | P.PN_ITS ---
Subjective NPU Subjective: Interval history: The patient remains fairly foggy today. Her last CIWA score was 10, necessitating lorazepam administration. She continues on Suboxone and complains of pain. We go over her lab data and the risks of her which they imply. I am not sure that she actually is able to fully inculcate the implications of the risk in which she has placed herself. Medications: Reviewed: Yes Medication Review Details: Current Medications Acetaminophen (Tylenol) 650 mg PO Q4H PRN PRN Reason: MILD PAIN Albuterol Sulfate (Ventolin) 2 puff INHALATION Q4H.RESPIRATORY PRN PRN Reason: SHORTNESS OF BREATH Last Admin: 11/14/19 09:26 Dose: 2 puff Documented by: Benztropine Mesylate (Cogentin) 1 mg PO BID PRN PRN Reason: Mild Extrapyramidal symptoms Budesonide (Pulmicort) 0.5 mg INHALATION BID.RESPIRATORY [facility] Last Admin: 11/14/19 09:27 Dose: Not Given Documented by: Buprenorphine/Naloxone (Suboxone 4-1 Mg) 2 each SUBLINGUAL TID [facility] Last Admin: 11/14/19 07:56 Dose: 2 each Documented by: Camphor/Menthol/Phenol (Blistex) 1 applic TOPICAL Q1H PRN PRN Reason: DRYNESS Diphenhydramine HCl (Benadryl) 50 mg IM ONCE PRN PRN Reason: Severe Extrapyramidal Symptoms Diphenhydramine HCl (Benadryl) 50 mg IM Q4H PRN PRN Reason: Severe Aggression Fluoxetine HCl (Prozac) 20 mg PO DAILY [facility] Last Admin: 11/14/19 07:56 Dose: 20 mg Documented by: Folic Acid (Folic Acid) 1 mg PO DAILY [facility] Last Admin: 11/14/19 07:55 Dose: 1 mg Documented by: Haloperidol (Haldol) 5 mg PO Q4H PRN PRN Reason: AGITATION Haloperidol Lactate (Haldol Inj) 5 mg IM Q4H PRN PRN Reason: Severe Aggression Hydroxyzine Pamoate (Vistaril) 50 mg PO Q6H PRN PRN Reason: ANXIETY Loperamide HCl (Imodium Capsule) 2 mg PO Q6H PRN PRN Reason: DIARRHEA Lorazepam (Ativan) 2 mg IM Q4H PRN PRN Reason: Severe Aggression Lorazepam (Ativan) 2 mg IM PROTOCOL PRN; Protocol PRN Reason: ALCOWD Lorazepam (Ativan) 2 mg PO PROTOCOL PRN; Protocol PRN Reason: WITHDRAWAL Last Admin: 11/14/19 07:56 Dose: 2 mg Documented by: Multivitamins Therapeutic (Multivitamin Tab) 1 tab PO DAILY [facility] Last Admin: 11/14/19 07:55 Dose: 1 tab Documented by: Nicotine (Nicoderm 21 Mg Patch) 1 patch TRANSDERMA DAILY PRN PRN Reason: NICOTINE WITHDRAWAL Nicotine Polacrilex (Nicorette) 2 mg BUCCAL Q2H PRN PRN Reason: NICOTINE WITHDRAWAL Olanzapine (Zyprexa Zydis) 5 mg PO Q4H PRN PRN Reason: Agitation/Psychosis Ondansetron HCl (Zofran) 4 mg PO Q6H PRN PRN Reason: NAUSEA AND VOMITING Prazosin HCl (Minipress) 1 mg PO BEDTIME [facility] Thiamine Mononitrate (Vitamin B-1) 100 mg PO DAILY [facility] Last Admin: 11/14/19 07:55 Dose: 100 mg Documented by: Trazodone HCl (Desyrel) 150 mg PO BEDTIME [facility] Last Admin: 11/13/19 20:16 Dose: 150 mg Documented by: Mental Status Exam MSE Comments: This is a morbidly obese female who presents at her stated age. She is foggy mentally and is very difficult to understand when she speaks. She does not seem to realize. Mood is anxious and affect is absolutely numb. There is no evidence of psychosis, such as hallucinations or delusions. She still does not want to get involved in rehab although her life is on the line. Cognition is difficult to assess. It may be below average, even if she were sober. She moves about, hither and yon, as if she had tardive dyskinesia (she may) but I think it is the impact of alcohol withdrawal from an extremely high, life threatening blood level. She is bereft of insight and judgment. Vitals/I&O/Wt Last Vital Signs Temp 97.9 F 11/14/19 06:00 Pulse 76 11/14/19 06:00 Resp 18 11/14/19 06:00 BP 125/77 11/14/19 06:00 Pulse Ox 97 11/14/19 06:00 Weight last 48 hrs Weight 274 lb 3.2 oz Weight 300 lb Weight 300 lb Data NPU : 11/12/19 15:41 11/12/19 15:41 A&P Assessment and plan (1) Posttraumatic stress disorder: Status: Acute (2) Alcohol use disorder: Status: Acute Additional A&P Information Due to the psychiatric conditions and treatment listed in the Assessment and Plan - the patient requires continued hospitalization. Will provide a safe and therapeutic environment for patient.. Will continue inpatient treatment to allow for medication adjustment and monitoring. Will continue q15 min safety checks. Will continue current medications and monitor for medication side effects. She is placed on the alcohol withdrawal protocol. Monitor patient's mood, sleep, appetite, and behavior closely. Encourage patient to participate in individual and group therapeutic sessions on the [facility]. Estimated length of stay 5 days The expected benefits and potential side effects of patient's psychiatric medications were discussed with the patient. The patient understands and consents to treatment. CRITERIA FOR DISCHARGE: stable on medications and no longer an imminent threat to self or others Involuntary Hold Information 96 Hour Hold: 96 Hour Involuntary Admission: Yes 96 Hour Hold Ending Date: 11/19/19 96 Hour Hold Ending Time: 17:50 Attestations NPU Medical Necessity Statement*: This patient is quite ill. I anticipate 7 to 12 midnights additional hospitalization Time Spent in Patient Care: Greater than 35 minutes (>than 50% of time spent in counselling and/or direct pt care on unit) . Coding Level of Care Code Acute Explosive Ordnance Disposal Specialist for Bartolo Lund Diagnoses Posttraumatic stress disorder F43.10 Alcohol use disorder
[2019-11-14 14:00] VITALS: BP 113/79; PULSE 71; RESP 18; TEMP 37.2
--- NOTE | 2019-11-14 17:00 | PC.NURSE ---
brown recluse Patient came to nurses station stating she killed a brown recluse in her room. nurses asked patient is she wanted to change rooms until house keeping could come clean, she refuses at this time and says she likes the room and wishes to stay.
[2019-11-14 20:11] VITALS: PULSE 94; RESP 18; O2SAT 97
[2019-11-14] MEDS: prazosin 1 mg Capsule PO (20:50)
[2019-11-14] MEDS: trazodone 150 mg Tablet PO (20:50)
[2019-11-14 22:00] VITALS: BP 121/74; PULSE 79; RESP 17; TEMP 36.7; O2SAT 98
--- NOTE | 2019-11-14 23:20 | PC.NURSE ---
PRN Ativan 2mg PO given for withdrawl and CIWA score 23 will continue to monitor this patient
[2019-11-15 06:00] VITALS: BP 133/86; PULSE 54; RESP 16; TEMP 36.7; O2SAT 95
[2019-11-15] MEDS: albuterol 8 gm MDI 2 PUFF INHALATION ×2 (07:45→20:16)
[2019-11-15 07:46] VITALS: PULSE 90; RESP 18; O2SAT 97
[2019-11-15] MEDS: buprenorphine-naloxone 4-1 mg Film 2 EACH SUBLINGUAL ×3 (09:11→20:10)
[2019-11-15] MEDS: folic acid 1 mg Tablet PO (09:11)
[2019-11-15] MEDS: multivitamin therapeutic Tablet 1 TAB PO (09:11)
[2019-11-15] MEDS: thiamine 100 mg Tablet PO (09:11)
[2019-11-15] MEDS: fluoxetine 20 mg Capsule PO (09:11)
[2019-11-15] MEDS: OLANZapine 5 mg ODT PO ×2 (09:11→17:13)
--- NOTE | 2019-11-15 09:11 | PC.NURSE ---
PRN ZYPREXA ZYDIS ZYPREXA ZYDIS 5MG PO PER PATIENT C/O ANXIETY/AGITATION. WILL CONTINUE TO MONITOR FOR MEDICATION EFFECTIVENESS.
--- NOTE | 2019-11-15 10:00 | PC.NURSE ---
PRN ZYPREXA SHIRA FOLLOW UP MEDICATION EFFECTIVE. PATIENT LYING IN BED RESTING.
[2019-11-15 14:00] VITALS: BP 132/80; PULSE 54; RESP 18; TEMP 36.4; O2SAT 96
--- NOTE | 2019-11-15 16:48 | P.PN_ITS ---
Subjective NPU Subjective: Interval history: I still have difficulty understanding the patient. Her mood is better and she feels okay about having survived. She says she got bit by a brown recluse, which she killed but does not want to move to another room. She points to a swelling over her right eye it is not highly inflamed. I consulted with the ER doctor who advocates a conservative approach, with Bactrim if it becomes inflamed and infected. If the wound declares itself with necrosis, then surgical intervention may be required. I educate the patient accordingly. She showed me the spider, which does not have the classical fiddle-shaped marking on the back but this is, if I recall correctly, highly variable in this species. Medications: Reviewed: Yes Medication Review Details: Current Medications Acetaminophen (Tylenol) 650 mg PO Q4H PRN PRN Reason: MILD PAIN Albuterol Sulfate (Ventolin) 2 puff INHALATION Q4H.RESPIRATORY PRN PRN Reason: SHORTNESS OF BREATH Last Admin: 11/15/19 07:45 Dose: 2 puff Documented by: Benztropine Mesylate (Cogentin) 1 mg PO BID PRN PRN Reason: Mild Extrapyramidal symptoms Budesonide (Pulmicort) 0.5 mg INHALATION BID.RESPIRATORY JULIANO Last Admin: 11/15/19 07:45 Dose: Not Given Documented by: Buprenorphine/Naloxone (Suboxone 4-1 Mg) 2 each SUBLINGUAL TID [facility] Last Admin: 11/15/19 15:54 Dose: 2 each Documented by: Camphor/Menthol/Phenol (Blistex) 1 applic TOPICAL Q1H PRN PRN Reason: DRYNESS Diphenhydramine HCl (Benadryl) 50 mg IM ONCE PRN PRN Reason: Severe Extrapyramidal Symptoms Diphenhydramine HCl (Benadryl) 50 mg IM Q4H PRN PRN Reason: Severe Aggression Fluoxetine HCl (Prozac) 20 mg PO DAILY [facility] Last Admin: 11/15/19 09:11 Dose: 20 mg Documented by: Folic Acid (Folic Acid) 1 mg PO DAILY [facility] Last Admin: 11/15/19 09:11 Dose: 1 mg Documented by: Haloperidol (Haldol) 5 mg PO Q4H PRN PRN Reason: AGITATION Haloperidol Lactate (Haldol Inj) 5 mg IM Q4H PRN PRN Reason: Severe Aggression Hydroxyzine Pamoate (Vistaril) 50 mg PO Q6H PRN PRN Reason: ANXIETY Loperamide HCl (Imodium Capsule) 2 mg PO Q6H PRN PRN Reason: DIARRHEA Lorazepam (Ativan) 2 mg IM Q4H PRN PRN Reason: Severe Aggression Lorazepam (Ativan) 2 mg IM PROTOCOL PRN; Protocol PRN Reason: ALCOWD Lorazepam (Ativan) 2 mg PO PROTOCOL PRN; Protocol PRN Reason: WITHDRAWAL Last Admin: 11/14/19 23:19 Dose: 2 mg Documented by: Multivitamins Therapeutic (Multivitamin Tab) 1 tab PO DAILY [facility] Last Admin: 11/15/19 09:11 Dose: 1 tab Documented by: Nicotine (Nicoderm 21 Mg Patch) 1 patch TRANSDERMA DAILY PRN PRN Reason: NICOTINE WITHDRAWAL Nicotine Polacrilex (Nicorette) 2 mg BUCCAL Q2H PRN PRN Reason: NICOTINE WITHDRAWAL Olanzapine (Zyprexa Zydis) 5 mg PO Q4H PRN PRN Reason: Agitation/Psychosis Last Admin: 11/15/19 09:11 Dose: 5 mg Documented by: Ondansetron HCl (Zofran) 4 mg PO Q6H PRN PRN Reason: NAUSEA AND VOMITING Prazosin HCl (Minipress) 1 mg PO BEDTIME [facility] Last Admin: 11/14/19 20:50 Dose: 1 mg Documented by: Thiamine Mononitrate (Vitamin B-1) 100 mg PO DAILY [facility] Last Admin: 11/15/19 09:11 Dose: 100 mg Documented by: Trazodone HCl (Desyrel) 150 mg PO BEDTIME [facility] Last Admin: 11/14/19 20:50 Dose: 150 mg Documented by: Mental Status Exam MSE Comments: This is a morbidly obese female who presents at her stated age. She is clearer mentally but remains quite difficult to understand when she speaks. She still does not seem to realize this. Mood is calmer and affect is slightly variegated and appropriate. There is no evidence of psychosis, such as hallucinations or delusions. She still does not want to get involved in rehab although her life is on the line. Cognition is difficult to assess. It may be below average, even if she were sober. She moves about, hit her and yon, as if she had tardive dyskinesia (she may) but I think it is the impact of alcohol withdrawal from an extremely high, life threatening blood level. She is bereft of insight and judgment. Vitals/I&O/Wt Last Vital Signs Temp 97.5 F L 11/15/19 14:00 Pulse 54 L 11/15/19 14:00 Resp 18 11/15/19 14:00 BP 132/80 11/15/19 14:00 Pulse Ox 96 11/15/19 14:00 Weight last 48 hrs Weight 274 lb 3.2 oz Physical Exam Narrative: EXAM NARRATIVE: EXAM NARRATIVE: Patient is awake and alert, walking around without apparent shortness of breath or difficulty. She is obese. She has a red enrique laterally under the right eye. Pupils are equally reactive and extraocular movements are intact, conjunctive a noninjected. Nasopharynx with boggy red turbinates and clear drainage noted. Oropharynx with some postnasal drainage and some cobblestoning visualized, no erythema or exudates. Neck is supple with some tenderness in the anterior cervical chain with a less than 1 cm palpable lymph node that is tender. Lungs with some faint inspiratory and expiratory wheezes, no tachypnea, no retractions, no pursed lip breathing, no nasal flaring, good aeration throughout. She has a regular rhythm without any murmurs noted. Abdomen is soft without apparent tenderness. No edema. Gait is normal, face symmetric, speech clear. Data NPU : 11/12/19 15:41 11/12/19 15:41 A&P Assessment and plan (1) Posttraumatic stress disorder: Status: Chronic (2) Alcohol use disorder: Status: Chronic Involuntary Hold Information 96 Hour Hold: 96 Hour Involuntary Admission: Yes 96 Hour Hold Ending Date: 11/19/19 96 Hour Hold Ending Time: 17:50 Attestations NPU Medical Necessity Statement*: I anticipate at least 4-5 midnights additional hospitalization. Time Spent in Patient Care: Greater than 35 minutes (>than 50% of time spent in counselling and/or direct pt care on unit) . Coding Level of Care Code Acute Instructional Systems Specialist for Bartolo Lund Diagnoses Posttraumatic stress disorder F43.10 Alcohol use disorder
--- NOTE | 2019-11-15 17:13 | PC.NURSE ---
PRN ZYPREXA ZYDIS ZYPREXA ZYDIS 5MG PO PER PATIENT C/O AGITATION/ANXIETY. WILL CONTINUE TO MONITOR FOR MEDICATION EFFECTIVENESS.
--- NOTE | 2019-11-15 18:00 | PC.NURSE ---
PRN ZYPREXA ZYDIS FOLLOW UP MEDICATION EFFECTIVE. NO FURTHER C/O AGITATION/ANXIETY.
[2019-11-15] MEDS: trazodone 150 mg Tablet PO (20:12)
[2019-11-15] MEDS: acetaminophen 325 mg Tablet 650 MG PO (20:12)
[2019-11-15 20:16] VITALS: PULSE 81; RESP 18; O2SAT 96
[2019-11-15 21:12] VITALS: BP 126/87; PULSE 62; RESP 13; TEMP 36.8; O2SAT 96
[2019-11-16 06:00] VITALS: BP 121/71; PULSE 56; RESP 19; TEMP 36.3; O2SAT 91
[2019-11-16] MEDS: thiamine 100 mg Tablet PO (10:06)
[2019-11-16] MEDS: multivitamin therapeutic Tablet 1 TAB PO (10:06)
[2019-11-16] MEDS: folic acid 1 mg Tablet PO (10:06)
[2019-11-16] MEDS: fluoxetine 20 mg Capsule PO (10:07)
[2019-11-16] MEDS: buprenorphine-naloxone 4-1 mg Film 2 EACH SUBLINGUAL ×3 (10:07→21:25)
[2019-11-16 13:45] VITALS: BP 107/64; PULSE 52; RESP 18; TEMP 36.8; O2SAT 95
[2019-11-16 21:09] VITALS: BP 115/68; PULSE 56; RESP 18; TEMP 36.9; O2SAT 93
--- NOTE | 2019-11-16 21:11 | P.PN_ITS ---
Subjective NPU Subjective: Interval history: The patient spends most of her day sleeping. One is moved to say she looks rested. She is working on a recovery program and I need to consult with her associate merchandise planner. Medications: Reviewed: Yes Medication Review Details: Current Medications Acetaminophen (Tylenol) 650 mg PO Q4H PRN PRN Reason: MILD PAIN Last Admin: 11/15/19 20:12 Dose: 650 mg Documented by: Albuterol Sulfate (Ventolin) 2 puff INHALATION Q4H.RESPIRATORY PRN PRN Reason: SHORTNESS OF BREATH Last Admin: 11/15/19 20:16 Dose: 2 puff Documented by: Benztropine Mesylate (Cogentin) 1 mg PO BID PRN PRN Reason: Mild Extrapyramidal symptoms Budesonide (Pulmicort) 0.5 mg INHALATION BID.RESPIRATORY JULIANO Last Admin: 11/16/19 20:38 Dose: Not Given Documented by: Camphor/Menthol/Phenol (Blistex) 1 applic TOPICAL Q1H PRN PRN Reason: DRYNESS Diphenhydramine HCl (Benadryl) 50 mg IM ONCE PRN PRN Reason: Severe Extrapyramidal Symptoms Diphenhydramine HCl (Benadryl) 50 mg IM Q4H PRN PRN Reason: Severe Aggression Fluoxetine HCl (Prozac) 20 mg PO DAILY [facility] Last Admin: 11/16/19 10:07 Dose: 20 mg Documented by: Folic Acid (Folic Acid) 1 mg PO DAILY [facility] Last Admin: 11/16/19 10:06 Dose: 1 mg Documented by: Haloperidol (Haldol) 5 mg PO Q4H PRN PRN Reason: AGITATION Haloperidol Lactate (Haldol Inj) 5 mg IM Q4H PRN PRN Reason: Severe Aggression Loperamide HCl (Imodium Capsule) 2 mg PO Q6H PRN PRN Reason: DIARRHEA Lorazepam (Ativan) 2 mg IM PROTOCOL PRN; Protocol PRN Reason: ALCOWD Lorazepam (Ativan) 2 mg PO PROTOCOL PRN; Protocol PRN Reason: WITHDRAWAL Last Admin: 11/14/19 23:19 Dose: 2 mg Documented by: Multivitamins Therapeutic (Multivitamin Tab) 1 tab PO DAILY [facility] Last Admin: 11/16/19 10:06 Dose: 1 tab Documented by: Nicotine (Nicoderm 21 Mg Patch) 1 patch TRANSDERMA DAILY PRN PRN Reason: NICOTINE WITHDRAWAL Nicotine Polacrilex (Nicorette) 2 mg BUCCAL Q2H PRN PRN Reason: NICOTINE WITHDRAWAL Olanzapine (Zyprexa Zydis) 5 mg PO Q4H PRN PRN Reason: Agitation/Psychosis Last Admin: 11/15/19 17:13 Dose: 5 mg Documented by: Ondansetron HCl (Zofran) 4 mg PO Q6H PRN PRN Reason: NAUSEA AND VOMITING Prazosin HCl (Minipress) 1 mg PO BEDTIME [facility] Last Admin: 11/16/19 03:32 Dose: Not Given Documented by: Thiamine Mononitrate (Vitamin B-1) 100 mg PO DAILY [facility] Last Admin: 11/16/19 10:06 Dose: 100 mg Documented by: Trazodone HCl (Desyrel) 150 mg PO BEDTIME [facility] Last Admin: 11/15/19 20:12 Dose: 150 mg Documented by: Mental Status Exam MSE Comments: This is a morbidly obese female who presents at her stated age. She is clearer mentally but remains quite difficult to understand when she speaks. She still does not seem to realize this. Mood is calmer and affect is slightly variegated and appropriate. There is no evidence of psychosis, such as hallucinations or delusions. She still does not want to get involved in rehab although her life is on the line. Cognition is difficult to assess. It may be below average, even if she were sober. She moves about, hither and yon, as if she had tardive dyskinesia (she may) but I think it is the impact of alcohol withdrawal from an extremely high, life threatening blood level. She is bereft of insight and judgment. Vitals/I&O/Wt Last Vital Signs Temp 98.4 F 11/16/19 21:09 Pulse 56 L 11/16/19 21:09 Resp 18 11/16/19 21:09 BP 115/68 11/16/19 21:09 Pulse Ox 93 11/16/19 21:09 Data NPU : 11/12/19 15:41 11/12/19 15:41 A&P Assessment and plan (1) Posttraumatic stress disorder: Status: Chronic (2) Alcohol use disorder: Status: Chronic Involuntary Hold Information 96 Hour Hold: 96 Hour Involuntary Admission: Yes 96 Hour Hold Ending Date: 11/19/19 96 Hour Hold Ending Time: 17:50 Attestations NPU Medical Necessity Statement*: I anticipate 3-5 midnights additional hospitalization. Time Spent in Patient Care: Greater than 35 minutes (>than 50% of time spent in counselling and/or direct pt care on unit) . Coding Level of Care Code Acute [employer] Machine Operator for Bartolo Lund Diagnoses Posttraumatic stress disorder F43.10 Alcohol use disorder
[2019-11-16] MEDS: prazosin 1 mg Capsule PO (21:12)
[2019-11-16] MEDS: trazodone 150 mg Tablet PO (21:13)
[2019-11-16] MEDS: OLANZapine 5 mg ODT PO (21:13)
[2019-11-17 06:00] VITALS: BP 104/65; PULSE 49; RESP 16; TEMP 36.7; O2SAT 96
[2019-11-17] MEDS: thiamine 100 mg Tablet PO (08:42)
[2019-11-17] MEDS: buprenorphine-naloxone 4-1 mg Film 2 EACH SUBLINGUAL ×3 (08:42→22:18)
[2019-11-17] MEDS: multivitamin therapeutic Tablet 1 TAB PO (08:42)
[2019-11-17] MEDS: folic acid 1 mg Tablet PO (08:42)
[2019-11-17] MEDS: fluoxetine 20 mg Capsule PO (08:42)
--- NOTE | 2019-11-17 09:56 | P.PN_ITS ---
Subjective NPU Subjective: Interval history: The patient seems less benumbed and has more energy. Mood is rising Medications: Reviewed: Yes Medication Review Details: Current Medications Acetaminophen (Tylenol) 650 mg PO Q4H PRN PRN Reason: MILD PAIN Last Admin: 11/15/19 20:12 Dose: 650 mg Documented by: Albuterol Sulfate (Ventolin) 2 puff INHALATION Q4H.RESPIRATORY PRN PRN Reason: SHORTNESS OF BREATH Last Admin: 11/15/19 20:16 Dose: 2 puff Documented by: Benztropine Mesylate (Cogentin) 1 mg PO BID PRN PRN Reason: Mild Extrapyramidal symptoms Budesonide (Pulmicort) 0.5 mg INHALATION BID.RESPIRATORY [facility] Last Admin: 11/16/19 20:38 Dose: Not Given Documented by: Buprenorphine/Naloxone (Suboxone 4-1 Mg) 2 each SUBLINGUAL TID [facility] Last Admin: 11/17/19 08:42 Dose: 2 each Documented by: Camphor/Menthol/Phenol (Blistex) 1 applic TOPICAL Q1H PRN PRN Reason: DRYNESS Diphenhydramine HCl (Benadryl) 50 mg IM ONCE PRN PRN Reason: Severe Extrapyramidal Symptoms Diphenhydramine HCl (Benadryl) 50 mg IM Q4H PRN PRN Reason: Severe Aggression Fluoxetine HCl (Prozac) 20 mg PO DAILY [facility] Last Admin: 11/17/19 08:42 Dose: 20 mg Documented by: Folic Acid (Folic Acid) 1 mg PO DAILY [facility] Last Admin: 11/17/19 08:42 Dose: 1 mg Documented by: Haloperidol (Haldol) 5 mg PO Q4H PRN PRN Reason: AGITATION Haloperidol Lactate (Haldol Inj) 5 mg IM Q4H PRN PRN Reason: Severe Aggression Loperamide HCl (Imodium Capsule) 2 mg PO Q6H PRN PRN Reason: DIARRHEA Multivitamins Therapeutic (Multivitamin Tab) 1 tab PO DAILY [facility] Last Admin: 11/17/19 08:42 Dose: 1 tab Documented by: Nicotine (Nicoderm 21 Mg Patch) 1 patch TRANSDERMA DAILY PRN PRN Reason: NICOTINE WITHDRAWAL Nicotine Polacrilex (Nicorette) 2 mg BUCCAL Q2H PRN PRN Reason: NICOTINE WITHDRAWAL Olanzapine (Zyprexa Zydis) 5 mg PO Q4H PRN PRN Reason: Agitation/Psychosis Last Admin: 11/16/19 21:13 Dose: 5 mg Documented by: Ondansetron HCl (Zofran) 4 mg PO Q6H PRN PRN Reason: NAUSEA AND VOMITING Prazosin HCl (Minipress) 1 mg PO BEDTIME [facility] Last Admin: 11/16/19 21:12 Dose: 1 mg Documented by: Thiamine Mononitrate (Vitamin B-1) 100 mg PO DAILY [facility] Last Admin: 11/17/19 08:42 Dose: 100 mg Documented by: Trazodone HCl (Desyrel) 150 mg PO BEDTIME [facility] Last Admin: 11/16/19 21:13 Dose: 150 mg Documented by: Mental Status Exam MSE Comments: This is a morbidly obese female who presents at her stated age. She is clearer mentally but remains quite difficult to understand when she speaks. She still does not seem to realize this. Mood, however, is brighter and affect is more variegated and appropriate. There is no evidence of psychosis, such as hallucinations, delusions, ideas of reference, etc. She still does not want to get involved in rehab although her life is on the line. Cognition seems clearer. It may be below average, even if she were sober. She moves about, hither and yon, as if she had tardive dyskinesia (she may) but I think it is the impact of alcohol withdrawal from an extremely high, life threatening blood level. She is gaining insight and judgment. She now understands that she cannot survive living around these people are shooting up and drinking. She denies suicidal or homicidal ideation, plan or intent. Vitals/I&O/Wt Last Vital Signs Temp 98.1 F 11/17/19 06:00 Pulse 49 L 11/17/19 06:00 Resp 16 11/17/19 06:00 BP 104/65 11/17/19 06:00 Pulse Ox 96 11/17/19 06:00 Data NPU : 11/12/19 15:41 11/12/19 15:41 A&P Assessment and plan (1) Posttraumatic stress disorder: Status: Chronic (2) Alcohol use disorder: Status: Chronic (3) Buprenorphine dependence: Status: Chronic Involuntary Hold Information 96 Hour Hold: 96 Hour Involuntary Admission: Yes 96 Hour Hold Ending Date: 11/19/19 96 Hour Hold Ending Time: 17:50 Attestations NPU Medical Necessity Statement*: I anticipate 3-4 midnights. Time Spent in Patient Care: Greater than 35 minutes (>than 50% of time spent in counselling and/or direct pt care on unit) . Coding Level of Care Code Acute Manager New Product for Bartolo Lund Diagnoses Posttraumatic stress disorder F43.10 Alcohol use disorder Buprenorphine dependence F11.20
[2019-11-17] MEDS: albuterol 8 gm MDI 2 PUFF INHALATION (10:29)
[2019-11-17 10:31] VITALS: PULSE 66; RESP 18; O2SAT 98
[2019-11-17 14:00] VITALS: BP 114/71; PULSE 58; RESP 18; TEMP 36.6; O2SAT 96
[2019-11-17] MEDS: bisacodyl 5 mg Tablet PO ×2 (14:44→22:49)
[2019-11-17 19:42] VITALS: BP 116/73; PULSE 60; RESP 17; TEMP 36.6; O2SAT 99
[2019-11-17] MEDS: trazodone 150 mg Tablet PO (22:17)
[2019-11-17] MEDS: prazosin 1 mg Capsule PO (22:17)
[2019-11-18 05:46] VITALS: BP 94/61; PULSE 66; RESP 17; TEMP 36.8; O2SAT 62
[2019-11-18] MEDS: thiamine 100 mg Tablet PO (08:46)
[2019-11-18] MEDS: fluoxetine 20 mg Capsule PO (08:46)
[2019-11-18] MEDS: folic acid 1 mg Tablet PO (08:46)
[2019-11-18] MEDS: multivitamin therapeutic Tablet 1 TAB PO (08:46)
[2019-11-18] MEDS: buprenorphine-naloxone 4-1 mg Film 2 EACH SUBLINGUAL (08:46)
--- NOTE | 2019-11-18 13:01 | PM.NDC ---
Diagnoses at Discharge Discharge Diagnosis (1) Posttraumatic stress disorder: Status: Chronic (2) Alcohol use disorder: Status: Chronic (3) Buprenorphine dependence: Status: Chronic Reason for Visit Reason for Visit: ETOH/ OD/ FALL/ COMBATIVE Brief History: History of Present Illness Chief complaint: My medications really are not working for me. They do not give me any energy. Wendy De La Cruz is a 29 year old female who now presents for the sixth time this calendar year for admission to the psychiatric unit if alcohol poisoning. She presented the emergency room with a blood alcohol level of 404. She was discharged from this unit 35 days ago. She apparently has not been doing much of anything other than ingesting alcohol and taking her Suboxone. She did not report to [facility] because she says she cannot afford it. She is not receiving any out patient therapy other than Suboxone from the [facility] who she says gives it to her for free. She continues to state that going to rehab is not something she is interested in. Her goal at this time is to sober up and feel better. She denies suicidal or homicidal ideation. ER physician HPI narrative: 29-year-old massively obese female who presents self-admittedly extremely intoxicated after drinking a lot of alcohol. Patient admits to drinking a lot of alcohol on a daily basis. She had called the emergency room earlier today stating she wanted to be seen we advised her to either come to the emergency room by private vehicle or call an ambulance if needed we have and offered to call an ambulance for her but she would not give us her location. Eventually she did call an ambulance herself was brought in by EMS and in route she became somewhat combative and was given 250 mg of ketamine. She is lethargic and pleasantly hallucinating on arrival after the combination of alcohol and ketamine. She has several bruises of varying ages on her extremities and an abrasion on her right anterior tibia MD complaint: alcohol intoxication Laboratory Tests 09/04/19 09/08/19 11/12/19 20:54 14:13 15:41 AST 170 H ALT 116 H Alkaline Phosphatase 104 Urine Opiates Screen Ur Barbiturates Screen Ur Phencyclidine Scrn Ur Amphetamines Screen U Benzodiazepines Scrn Urine Cocaine Screen U Marijuana (THC) Screen Ethyl Alcohol 387 H* 393 H* 404 H* 11/12/19 11/12/19 16:07 19:57 AST ALT Alkaline Phosphatase Urine Opiates Screen Negative Ur Barbiturates Screen Negative Ur Phencyclidine Scrn Negative Ur Amphetamines Screen Negative U Benzodiazepines Scrn Negative Urine Cocaine Screen Negative U Marijuana (THC) Screen Positive H Ethyl Alcohol 255 H Mental health history: Unchanged from 10/03/2019 Social history: Unchanged from a 03 October 2019 Meds NPU Home Medications Medication Instructions Recorded Confirmed Last Taken Type budesonide 1 inh INHALATION DAILY 30 Days #1 09/21/19 11/12/19 Unknown Rx each buprenorphine-naloxone 1 film BUCCAL TID 10/02/19 10/02/19 11/12/19 History fluoxetine 20 mg PO DAILY 30 Days #30 cap 10/07/19 Unknown Rx trazodone 150 mg PO BEDTIME 30 Days #30 tab 10/07/19 11/11/19 Rx Allergies Allergy/AdvReac Type Severity Reaction Status Date / Time codeine Allergy Unknown ALGY-Hives Verified 11/12/19 14:51 PFSH NPU PFSH: Medical History Alcohol abuse with alcohol-induced mood disorder Patient currently detoxed. Allergic rhinitis, unspecified Essential (primary) hypertension not on any chronic treatment 09/26 Family history of alpha 1 antitrypsin deficiency Fibromyalgia Generalized anxiety disorder H/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, includes meth, heroin, others, on buprenorphine Hepatitis C antibody positive in blood hepatomegaly, splenomegaly, low platelets transiently noted -09/26, no treatment Hx of abscess of skin and subcutaneous tissue right arm Major depressive disorder, recurrent, moderate Nontoxic thyroid nodule Polycystic ovarian syndrome polycystic ovaries not notated on CT abdomen/pelvis 01/26 Unspecified asthma, uncomplicated onset in childhood Surgical History Hx of cholecystectomy Family History Other Adimh-1-ikdymcvrnir deficiency Drug abuse, amphetamine type Hypertension Social History Smoking and tobacco status: current every day smoker cigarettes Packs smoked per day: 1.5 Years cigarettes smoked: 15 Quit status (tobacco): considering quitting Second hand smoke exposure: Yes Smoking risk assessment/counseling performed?: Yes Alcohol intake: current Alcohol intake frequency: 0-2 Drinks per Day Alcohol type: hard liquor Desire information about alcohol rehabilitation?: Yes Counseling given: No Desire information about substance/drug rehabilitation?: No Counseling given: No Adopted: No Caregiver/support person: No Lives independently: Yes Household members: friend(s) Housing: Manufactured/Mobile home Marital status: Single Number of children: 2 service: No Current occupational status: employed History of recent travel: No Current gender identity: Female Female Reproductive History: Para: 2 Hospital Course Hospital Course Wendy present to the emergency room reporting that she had been drinking a lot on a daily basis. She was extremely intoxicated and had called the emergency room earlier to find out if they could help her. On route to the hospital, she became combative and was given 250 mg of Ketamine. She presented lethargic and hallucinating, likely because of the combination of alcohol and ketamine. She had several bruises of varying ages, on her extremities, and an abrasion on her right interior tibia. She was admitted to the neuropsychiatric unit for definitive treatment of those issues. Once she arrived, she was noted to have a blood alcohol level of 404, and she is on Suboxone. She was admitted and slowly acclimated to the individual, group, and milieu therapies provided. Prozac was continued, Trazodone was continued, and Prazosin was started, and she had modest improvement. During the hospitalization, the patient had routine laboratory studies which were within normal limits, except for a few outliers. Additionally, the patient had a general medical evaluation which was within normal limits and revealed no new acute processes. Discharge Summary At the time of discharge the patient denied all lethality, was absent psychosis, and mood and anxiety were well managed. The patient endorsed a plan to avoid all drugs of abuse and to follow-up with outpatient services, as recommended. The patient was evaluated and deemed to be absent credible lethality, and had achieved the maximum benefit from an inpatient hospitalization, and so she was discharged. Involuntary Hold Information 96 Hour Hold: 96 Hour Involuntary Admission: Yes 96 Hour Hold Ending Date: 11/19/19 96 Hour Hold Ending Time: 17:50 Mental Status Exam MSE Comments: This is a morbidly obese, white female, with adequate dress, grooming, and eye contact. No abnormal movements, except for mild psychomotor retardation. Cooperative with exam in no acute distress. Speech was normal rate and volume. Mood described as ?doing a bit better?; affect congruent. Thought process, organized. Thought content: patient denied any suicidal or homicidal ideation, there were no delusions reported or noted, patient denied any auditory or visual hallucinations. Attention, concentration, and memory appeared intact but none were formally tested. She is alert and oriented times three. Insight and judgment are limited but improving. Impulse control is improving. Discharge Data Data Completed and Pending: Completed Studies During Hospitalization Category Date Time Status XR chest 1V april ble [id number] Stat Exams 11/12/19 15:25 Completed Vitals: Last Vital Signs Temp 98.2 F 11/18/19 05:46 Pulse 66 11/18/19 05:46 Resp 17 11/18/19 05:46 BP 94/61 11/18/19 05:46 Pulse Ox 62 L 11/18/19 05:46 Discharge Plan Discharge Patient Disposition: Home Condition: Stable Prescriptions: New prazosin 1 mg Capsule 1 mg PO BEDTIME 30 Days Qty: 30 RF: 1 Vitamin B-1 (mononitrate) 100 mg Tablet 100 mg PO DAILY 30 Days Qty: 30 RF: 0 Continued budesonide 180 mcg/actuation aerosol powdr breath activated 1 inh INHALATION DAILY 30 Days Qty: 1 RF: 3 buprenorphine-naloxone 8-2 mg Film 1 film BUCCAL TID RF: 0 trazodone 150 mg Tablet 150 mg PO BEDTIME 30 Days Qty: 30 RF: 1 fluoxetine 20 mg Capsule 20 mg PO DAILY 30 Days Qty: 30 RF: 1 Discharge Orders: Discharge Order (Routine); Ordered 11/18/19 Ordered By: Lan Loyd Referrals: Dr. Marion [Other] (Previously scheduled follow up) [facility] [Outside] - 1-3 days (call and request outpatient mental health services. ) [facility] [Outside] - 1-3 days (if you change your mind and you do want substance abuse treatment in this area, call and request initial intake. ) Reyes Danielle MD [Physician] - 11/26/19 12:45 pm (For well womans exam and to have the lump on your breast checked. They will call 3 days in advance to confirm the appointment. You must answer or call them back to confirm or the appointment will be canceled.) Discharge Diet: Regular Discharge Activity: Resume usual activity Patient Instructions: Alcohol Abuse, Prazosin (By mouth), Thiamine (Vitamin B-1) (By mouth), Anxiety (DC) Activity Restrictions/Additional Instructions: AA meeting: Friday at 8:[address], [address] Discharge Date/Time: 11/18/19 14:31 Discharge Attestations NPU Time Spent in Discharge Care*: less than 30 min Specific Discharge Activities: Specific discharge activities: educating patient, discussing with piano case and bench assembler/social workers/dc planners, documenting/other paperwork and evaluating patient/reviewing data Status at Discharge: Cognitive status at discharge: cognitively intact, Behavioral status at discharge: cooperative, Coding Level of Care Code Acute Product Applications Scientist for g Fwd Diagnoses Posttraumatic stress disorder F43.10 Alcohol use disorder Buprenorphine dependence F11.20
--- NOTE | 2019-11-18 13:08 | PC.RESP ---
Smoking Cessation information and a schedule of classes to patient.
[2019-11-18 13:21] VITALS: BP 94/61; PULSE 66; RESP 17; TEMP 36.8; O2SAT 62
== END 2019-11-18 14:31 | disposition home or self-care (01) | DRG 897 ==
LOC: ER 16:00 → NP 18:41
PROVIDERS: Emergency Medicine; Family Medicine; Admitting Provider Psychiatry & Neurology Psychiatry; PCP Nurse Practitioner; Visit Provider Psychiatry & Neurology Psychiatry
DX: F10.229 Alcohol dependence with intoxication, unspecified (principal); Z68.42 Body mass index [BMI] 45.0-49.9, adult; F33.1 Major depressive disorder, recurrent, moderate; F11.20 Opioid dependence, uncomplicated; Y90.8 Blood alcohol level of 240 mg/100 ml or more; I10 Essential (primary) hypertension; E66.9 Obesity, unspecified; F17.210 Nicotine dependence, cigarettes, uncomplicated; F41.1 Generalized anxiety disorder; M79.7 Fibromyalgia; F43.10 Post-traumatic stress disorder, unspecified
CPT/HCPCS: 12345; 36415; 71045; 80053; 80306; 80307; 81003; 81025; 83690; 85025; 93005; 94640; 96375; 99283; J0573; J2405; J3535; J7030; J7626

== ENCOUNTER 2019-12-19 19:01 | Emergency (ER) | payer SELFPAY ==
[2019-12-19 20:29] LABS: Basophils % 0.3 %; Eosinophils # 0.5 10^3/uL (0.0-0.8); Eosinophils % 5.3 %; Hematocrit 45.9 % (37.0-47.0); Hemoglobin 14.9 g/dL (11.5-15.3); Lymphocytes # 2.1 10^3/uL (0.8-4.8); Lymphocytes % 24.5 %; Mean Corpuscular HGB Conc 32.5 g/dL (30.0-36.0); Mean Corpuscular Hemoglobin 32.5 pg (28.0-34.0); Mean Corpuscular Volume 100.2 fL (81-99); Mean Platelet Volume 9.4 fL (7.4-10.4); Monocytes # 0.3 10^3/uL (0.2-0.9); Monocytes % 2.9 %; Neutrophils # 5.69 10^3/uL (1.8-7.7); Neutrophils % 66.3 %; Nucleated Red Blood Cells % 0 %; Platelet Count 236 10^3/cmm (130-400); Red Blood Count 4.58 10^6/uL (4.1-5.3); Red Cell Distribution Width 13.4 % (12.1-15.1); White Blood Count 8.6 10^3/uL (4.0-10.0)
[2019-12-19 20:35] LABS: HCG, Serum Qual Negative (Negative)
[2019-12-19 20:43] LABS: Alanine Aminotransferase 53 U/L (0-33); Albumin Level 3.7 g/dL (3.5-5.2); Alkaline Phosphatase 83 IU/L (35-105); Aspartate Amino Transferase 69 U/L (0-32); Blood Urea Nitrogen 3 mg/dL (6-20); Calcium 8.7 mg/dL (8.5-10.5); Carbon Dioxide 22 mmol/L (22-29); Chloride 103 mmol/L (98-107); Globulin 3.8 g/dL (1.3-4.6); Glomerular Filtration Rate 84.2 mL/min (90-130); Glucose 122 mg/dL (65-115); Lipase 53 U/L (13-60); Osmolality Calculated 286 mOsm/kg (285-295); Sodium 139 mmol/L (136-145); Total Bilirubin 0.3 mg/dL (0.15-1.2); Total Protein 7.5 g/dL (6.6-8.7)
[2019-12-19 20:56] LABS: Anion Gap 17.4 (5-19); Potassium 3.4 mmol/L (3.5-5.1)
== END 2019-12-19 19:45 | disposition left against medical advice (07) ==
PROVIDERS: Emergency Provider Emergency Medicine; PCP Nurse Practitioner
DX: Z53.21 Procedure and treatment not carried out due to patient leaving prior to being seen by health care provider (principal)
CPT/HCPCS: 36415; 80053; 83690; 84703; 85025; 99281

== ENCOUNTER 2019-12-19 19:47 | Emergency (ER) | payer SELFPAY ==
[2019-12-19 20:44] VITALS: BP 150/91; PULSE 113; RESP 18; TEMP 36.8; O2SAT 95; BMI 49.8
--- NOTE | 2019-12-19 21:37 | XRR_ITS ---
PROCEDURE INFORMATION: Exam: XR Abdomen, 1 View Exam date and time: 12/19/2019 9:49 PM Age: 29 years old Clinical indication: Constipation; Prior surgery; Surgery type: Gb TECHNIQUE: Imaging protocol: XR of the abdomen. Views: Frontal supine view of the abdomen. 1 View. COMPARISON: CT abdomen pelvis w con* [id number] 01/10/2019 5:42 PM FINDINGS: Evaluation is limited due to patient body habitus. Gastrointestinal tract: Unremarkable bowel gas pattern. Organs: Status post cholecystectomy. Bones/joints: Unremarkable. XR/XR KUB [id number] IMPRESSION: Unremarkable bowel gas pattern.
--- NOTE | 2019-12-19 21:38 | ED_ITS ---
HPI - Skin/Abscess/Foreign Bdy General: Chief complaint: Skin/Abscess/Foreign Body Stated complaint: ab pain Time Seen by Provider: 12/19/19 21:32 Source: patient Mode of arrival: ambulatory Limitations: no limitations History of Present Illness: HPI narrative: Patient comes in with an area of redness to the abdominal girth after injecting into her abdomen with methamphetamines. Patient also reports some constipation. Patient appears well. Patient appears in no pain. Review of Systems General: Reports: 10 or more systems reviewed and unremarkable except in HPI and below Skin/Breast: Reports: erythema PFSH ED PFSH: Medical History (Updated 12/19/19 @ 21:47 by KAILASH Boyer) Alcohol abuse with alcohol-induced mood disorder Patient currently detoxed. Allergic rhinitis, unspecified Essential (primary) hypertension not on any chronic treatment 09/26 Family history of alpha 1 antitrypsin deficiency Fibromyalgia Generalized anxiety disorder H/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, includes meth, heroin, others, on buprenorphine Hepatitis C antibody positive in blood hepatomegaly, splenomegaly, low platelets transiently noted -09/26, no treatment Hx of abscess of skin and subcutaneous tissue right arm Major depressive disorder, recurrent, moderate Nontoxic thyroid nodule Polycystic ovarian syndrome polycystic ovaries not notated on CT abdomen/pelvis 01/26 Unspecified asthma, uncomplicated onset in childhood Surgical History Hx of cholecystectomy Family History Other Pnjsl-8-rherudwiohp deficiency Drug abuse, amphetamine type Hypertension Social History Smoking and tobacco status: current every day smoker cigarettes Packs smoked per day: 1.5 Years cigarettes smoked: 15 Quit status (tobacco): considering quitting Second hand smoke exposure: Yes Smoking risk assessment/counseling performed?: Yes Alcohol intake: current Alcohol intake frequency: 0-2 Drinks per Day Alcohol type: hard liquor Desire information about alcohol rehabilitation?: Yes Counseling given: No Desire information about substance/drug rehabilitation?: No Counseling given: No Adopted: No Caregiver/support person: No Lives independently: Yes Household members: friend(s) Housing: Manufactured/Mobile home Marital status: Single Number of children: 2 service: No Current occupational status: employed History of recent travel: No Current gender identity: Female Female Reproductive History: Para: 2 Physical Exam Const: COMMON NORMALS: no acute distress and patient oriented x3 GENERAL APPEARANCE: cooperative HENMT: COMMON NORMALS: normocephalic and Normal external nose present HEAD & SCALP: normal to inspection and normocephalic NOSE: Normal external nose present MOUTH: Normal oral and palatal mucosa present THROAT: posterior oropharynx normal Eye: GENERAL EYE: appearance normal, both eyes and all related structures Neck/C-Spine: COMMON NORMALS: full ROM Lymph: LYMPHATIC: no lymphadenopathy noted Chest: COMMONS NORMALS: normal inspection of the chest Resp: COMMON NORMALS: normal respiratory effort EFFORT & INSPECTION: Yes able to speak in complete sentences Cardio: COMMON NORMALS: regular rate and regular rhythm RATE: regular rate RHYTHM: regular rhythm GI: COMMON NORMALS: Soft to palpation and non-tender AUSCULTATION: Yes normoactive bowel sounds PALPATION: Yes Soft to palpation PERCUSSION: normal to percussion : COMMON NORMALS: Yes no CVA tenderness BLADDER/KIDNEY EXAM: Yes no CVA tenderness Back/Pelvis: COMMON NORMALS: no CVA tenderness and thoracic and lumbar spine normal to inspection Extremity: COMMON NORMALS: normal to inspection Neuro: COMMON NORMALS: patient oriented x3 and moves all extremities Psych: COMMON NORMALS: mental status grossly normal and cooperative Skin: COMMON NORMALS: no rashes or lesions noted GENERAL SKIN EXAM: no rashes or lesions noted Course Vital Signs: Vital signs: Vital Signs Temperature 98.2 F 12/19/19 20:44 Pulse Rate 113 H 12/19/19 20:44 Respiratory Rate 18 12/19/19 20:44 Blood Pressure 150/91 12/19/19 20:44 Pulse Oximetry 95 12/19/19 20:44 MDM - Skin/Abscess/Foreign Bdy MDM Narrative: Medical decision making narrative: Patient comes in for concerns of injection into the right lower abdomen into the subcutaneous tissue with methamphetamines. Patient reports redness and inflammation to the abdomen skin. On exam we note an area of erythema approximately 20 cm in diameter to the right lower abdomen. There is a small 1 cm nodule where patient states that she had injected the methamphetamine. Lungs are clear to auscultation. Vital signs are normal. Patient appears well. Differential diagnosis includes cellulitis, bowel obstruction, constipation. Patient reports long history of constipation and was concerned due to not having a good bowel movement in 1 month. Patient denies any fever. We will treat for cellulitis due to the injection with some cephalexin. Cephalexin should also help with the constipation. X-ray KUB noted no bowel obstruction. Patient reported understanding agreed to plan. Discharge Plan Discharge Patient Disposition: Home Clinical Impression: Cellulitis Qualifiers: Site of cellulitis: trunk Site of cellulitis of trunk: abdominal wall Qualified Code(s): L03.311 - Cellulitis of abdominal wall Constipation Qualifiers: Constipation type: unspecified constipation type Qualified Code(s): K59.00 - Constipation, unspecified Condition: Stable Prescriptions: New cephalexin 500 mg capsule 500 mg PO Q6H 7 Days Qty: 28 RF: 0 magnesium citrate Solution 296 ml PO BID PRN (Reason: constipation) Qty: 296 RF: 2 No Action budesonide 180 mcg/actuation aerosol powdr breath activated 1 inh INHALATION DAILY 30 Days Qty: 1 RF: 3 buprenorphine-naloxone 8-2 mg Film 1 film BUCCAL TID RF: 0 prazosin 1 mg Capsule 1 mg PO BEDTIME 30 Days Qty: 30 RF: 1 trazodone 150 mg Tablet 150 mg PO BEDTIME 30 Days Qty: 30 RF: 1 fluoxetine 20 mg Capsule 20 mg PO DAILY 30 Days Qty: 30 RF: 1 Discharge Orders: Discharge Order (Routine); Ordered 12/19/19 Ordered By: Evens Barr Referrals: David Villar, [facility] [Primary Care Provider] - Discharge Diet: Usual diet Discharge Activity: Increase activity as tolerated Patient Instructions: Constipation (ED), Cellulitis (ED) Activity Restrictions/Additional Instructions: Healthy diet. Plenty of fluids. Use magnesium citrate 1 bottle every 12 hours as needed until good bowel movement. Take antibiotic as directed. Follow-up with primary care regarding constipation. You may need to have further evaluation with a colonoscopy for evaluation of your chronic constipation to make sure there is not an abnormality. Return to the emergency department for new concerns. Coding Level of Care Code ED Maintenance Services Dispatcher for Bartolo Fwcassius Exam Comprehensive
[2019-12-19] MEDS: cephALEXin 500 mg Capsule PO (22:44)
[2019-12-19] MEDS: magnesium citrate Btl 296 mL PO (22:44)
[2019-12-19 22:48] VITALS: PULSE 85; RESP 16
== END 2019-12-19 22:49 | disposition home or self-care (01) ==
PROVIDERS: Emergency Provider Nurse Practitioner Family; PCP Nurse Practitioner
DX: L03.311 Cellulitis of abdominal wall (principal); K59.00 Constipation, unspecified; I10 Essential (primary) hypertension; Z86.19 Personal history of other infectious and parasitic diseases; F17.210 Nicotine dependence, cigarettes, uncomplicated
CPT/HCPCS: 12345; 74018; 99281; 99283

== ENCOUNTER 2020-01-01 22:03 | Emergency (ER) | payer SELFPAY ==
[2020-01-01 22:06] VITALS: BP 142/73; PULSE 93; RESP 18; TEMP 36.9; O2SAT 96; BMI 46.0
--- NOTE | 2020-01-01 22:48 | CTR_ITS ---
PROCEDURE INFORMATION: Exam: CT Lumbar Spine Without Contrast Exam date and time: 01/01/2020 10:55 PM Age: 29 years old Clinical indication: Injury or trauma; Blunt trauma (contusions or hematomas); Patient HX: C/O lbp after fall while dancing ETOH involved; Additional info: Back pain/fall TECHNIQUE: Imaging protocol: Computed tomography images of the lumbar spine without contrast. Radiation optimization: All CT scans at this facility use at least one of these dose optimization techniques: automated exposure control; mA and/or kV adjustment per patient size (includes targeted exams where dose is matched to clinical indication); or iterative reconstruction. COMPARISON: CR Lumbar Spine 2-3 views* [id number] 02/25/2014 4:53 PM RADIATION DOSE METRICS: Total DLP (mGy-cm): 2626.38 FINDINGS: Vertebrae: Stable slight anterior wedging of L1 and L2. No pars defect or acute fracture. Still no malalignment. Discs/Spinal canal/Neural foramina: Minimal annular bulging at L3-L4 and L4-L5 without canal or significant foraminal stenosis. Shallow small central focal disc protrusion at L4-L5 as well. Other discs unremarkable. Liver: Liver density much lower than that of the spleen indicating fatty infiltration. Kidneys and ureters: Very small stone in the upper right kidney. No hydronephrosis. Soft tissues: No acute finding. CT/CT lumbar spine wo con* [id number] IMPRESSION: 1. No acute fracture. Stable slight L1 and L2 compression fractures. Slight degenerative disease detailed above. 2. Hepatic steatosis. Very small right renal stone. Radiation Dose CTDIVOL = (mGy): DLP = 2626.38 (mGy-cm)
[2020-01-01 23:03] VITALS: BP 152/107; PULSE 78; RESP 18; O2SAT 96
--- NOTE | 2020-01-01 23:49 | ED_ITS ---
HPI - Fall General: Chief Complaint: Fall Stated Complaint: FELL Time Seen by Provider: 01/01/20 22:33 History of Present Illness: HPI Narrative: 29-year-old female patient presents to the emergency department via EMS. She reports was dancing to [employer] when she tripped and fell, landing on a hard surface in her camper trailer. She reports landed on her back. She is complaining of low back pain. Reports large intake of alcohol tonight. complaint: fall Onset (ago): hour(s) (1) Fall from: standing Fall witnessed: yes, by bystander Place fall occurred: other (friend's home) Loss of consciousness: None Symptoms prior to fall: none Context: tripped/slipped Location of injury: back Severity: moderate Quality: dull and aching Associated symptoms-after fall: Reports no associated symptoms and difficulty walking (due to ETOH use); Denies abdominal pain, chest pain or neck pain Review of Systems General: Reports: 10 or more systems reviewed and unremarkable except in HPI and below Const: Denies: fever(s), chills or diaphoresis Eyes: Denies: blurry vision or eye redness ENMT: Denies: throat pain, dental pain or disequilibrium Card: Denies: chest pain, palpitations or irregular heart rhythm Resp: Denies: dyspnea, productive cough, non-productive cough or wheezing GI: Denies: abdominal pain, nausea or vomiting : Denies: difficulty voiding or dysuria Musc: Reports: back pain; Denies: neck pain, joint pain, joint swelling or joint stiffness Skin/Breast: Denies: rash or pruritus Neuro: Reports: difficulty walking (due to ETOH use) Dg/Lymph: Denies: easy bruising PFS ED PFSH: Medical History (Updated 01/02/20 @ 03:17 by ORALIA Simental) Alcohol abuse with alcohol-induced mood disorder Patient currently detoxed. Essential (primary) hypertension not on any chronic treatment 09/26 Family history of alpha 1 antitrypsin deficiency Fibromyalgia Generalized anxiety disorder H/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, includes meth, heroin, others, on buprenorphine Hepatitis C antibody positive in blood Hx of abscess of skin and subcutaneous tissue right arm Major depressive disorder, recurrent, moderate Nontoxic thyroid nodule Polycystic ovarian syndrome polycystic ovaries not notated on CT abdomen/pelvis 01/26 Unspecified asthma, uncomplicated onset in childhood Surgical History Hx of cholecystectomy Family History Other [id number] deficiency Drug abuse, amphetamine type Hypertension Social History Smoking and tobacco status: current every day smoker cigarettes Packs smoked per day: 1.5 Years cigarettes smoked: 15 Quit status (tobacco): considering quitting Second hand smoke exposure: Yes Smoking risk assessment/counseling performed?: Yes Alcohol intake: current Alcohol intake frequency: 3 or more drinks per day Alcohol type: hard liquor Desire information about alcohol rehabilitation?: Yes Counseling given: No Desire information about substance/drug rehabilitation?: No Counseling given: No Other details last substance use: Has used methamphetamine, heroin, pain medications. Adopted: No Caregiver/support person: No Lives independently: Yes Household members: friend(s) Housing: Manufactured/Mobile home Marital status: Single Number of children: 2 service: No Current occupational status: employed History of recent travel: No Current gender identity: Female Female Reproductive History: Date of last menstrual period: 12/29/19 Para: 2 Physical Exam Const: COMMON NORMALS: no acute distress, patient oriented x3, alert and well nourished GENERAL APPEARANCE: cooperative and odor of alcohol detected NUTRITIONAL APPEARANCE: obese ORIENTATION/CONSCIOUSNESS: Yes awake, Yes oriented to person, Yes oriented to place and Yes oriented to time HENMT: COMMON NORMALS: normocephalic, Normal external nose present and moist oral mucous membranes HEAD & SCALP: normocephalic NOSE: Normal external nose present Eye: COMMON NORMALS: Equal, round and reactive pupils present and EOMs intact bilaterally GENERAL EYE: appearance normal, both eyes and all related structures PUPIL: Yes Equal, round and reactive pupils present Neck/C-Spine: COMMON NORMALS: full ROM and no lymphadenopathy GENERAL: Yes normal visual inspection and Yes trachea midline CERVICAL SPINE: Yes cervical ROM normal, No pain with cervical ROM, No Cervical spine tenderness, No Paracervical muscle tenderness and No Trapezius muscle tenderness Lymph: LYMPHATIC: no lymphadenopathy noted Chest: COMMONS NORMALS: normal inspection of the chest and normal palpation of entire chest wall CHEST: No localized rib tenderness with anteroposterior compression Resp: COMMON NORMALS: normal respiratory effort and clear to auscultation bilaterally EFFORT & INSPECTION: Yes able to speak in complete sentences A USCULTATION: clear to auscultation bilaterally Cardio: COMMON NORMALS: regular rhythm, S1 normal heart sound present, S2 normal heart sound present and Peripheral pulses 2+ throughout RHYTHM: regular rhythm HEART SOUNDS: S1 normal heart sound present and S2 normal heart sound present PERIPHERAL PULSES: Peripheral pulses 2+ throughout GI: COMMON NORMALS: Soft to palpation and non-tender; negative for No hepatosplenomegaly present INSPECTION: Yes normal to inspection AUSCULTATION: Yes normoactive bowel sounds PALPATION: Yes Soft to palpation, No Tenderness to palpation present (GI), No No hepatosplenomegaly present and No Hepatosplenomegaly present : COMMON NORMALS: Yes no CVA tenderness BLADDER/KIDNEY EXAM: Yes no CVA tenderness and No CVA tenderness Back/Pelvis: COMMON NORMALS: no CVA tenderness and thoracic and lumbar spine normal to inspection GENERAL BACK: No CVA tenderness THORACIC SPINE/UPPER BACK: No pain with ROM, No thoracic spinal tenderness and No paraspinal muscle spasm LUMBAR SPINE/LOWER BACK: Yes normal to inspection, Yes ROM limited, Yes lumbar spinal tenderness, Yes paraspinal muscle tenderness, Yes paraspinal muscle spasm, Yes straight leg raise positive right and Yes straight leg raise positive left SACROILIAC JOINTS: Yes SI joints normal SACRUM: no ecchymosis COCCYX: no swelling Extremity: COMMON NORMALS: normal to inspection and capillary refill normal Neuro: ADWOA COMA SCALE: document GCS findings Adwoa coma scale eye opening: Spontaneous Adwoa coma scale verbal response: Orientated Adwoa coma scale motor response: Obey commands [place] coma scale total score: 15 COMMON NORMALS: patient oriented x3 and no focal motor deficits SENSORIUM/ORIENTATION: Yes alert, Yes oriented to person, Yes oriented to place and Yes oriented to time SPEECH: speech normal MOTOR EXAM: 5/5 motor strength present throughout Psych: COMMON NORMALS: mental status grossly normal, Normal thought process present and cooperative ACTIVITY/MOTOR BEHAVIOR: Yes appropriate eye contact THOUGHT PROCESS: Normal thought process present Skin: COMMON NORMALS: no rashes or lesions noted and turgor normal GENERAL SKIN EXAM: no rashes or lesions noted and turgor normal Course ED course: 29-year-old female patient presents to the emergency department with complaints of low back pain status post fall. EtOH intoxication present. CT scan lumbar spine with stable slight anterior wedging of L1-L2, no acute fracture, she received Tylenol per her request and IV Toradol. engaging in eating and drinking during her stay, no episodes of nausea vomiting. Case dis cussed with Dr. Martinez, no further orders. Serology and radiology results discussed with the patient. She denied questions. Vital Signs: Vital signs: Vital Signs Temperature 98.4 F 01/02/20 04:25 Pulse Rate 82 01/02/20 04:25 Respiratory Rate 17 01/02/20 04:25 Blood Pressure 113/45 01/02/20 04:25 Pulse Oximetry 94 01/02/20 04:25 MDM - Fall Lab Data: Labs: Lab Results 01/02/20 01/02/20 01/02/20 Range/Units 00:03 00:03 00:03 WBC 6.0 (4.0-10.0) 10^3/ uL RBC 4.57 (4.1-5.3) 10^6/u L Hgb 14.7 (11.5-15.3) g/dL Hct 45.8 (37.0-47.0) % MCV 100.2 H (81-99) fL MCH 32.2 (28.0-34.0) pg MCHC 32.1 (30.0-36.0) g/dL RDW 14.2 (12.1-15.1) % Plt Count 161 (130-400) 10^3/c mm MPV 9.5 (7.4-10.4) fL Neut % (Auto) 45.2 % Lymph % (Auto) 42.5 % Lea % (Auto) 5.0 % Eos % (Auto) 6.6 % Baso % (Auto) 0.5 % Neut # (Auto) 2.72 (1.8-7.7) 10^3/u L Lymph # (Auto) 2.6 (0.8-4.8) 10^3/u L Lea # (Auto) 0.3 (0.2-0.9) 10^3/u L Eos # (Auto) 0.4 (0.0-0.8) 10^3/u L Baso # (Auto) 0.0 (0.0-0.1) 10^3/u L Nucleated RBC % (a uto) 0 % Nucleated RBCs # 0.0 /100WBC Sodium 145 (136-145) mmol/L Potassium 3.5 (3.5-5.1) mmol/L Chloride 105 (98-107) mmol/L Carbon Dioxide 30 H (22-29) mmol/L Anion Gap 13.5 (5-19) BUN 6 (6-20) mg/dL Creatinine 0.8 (0.5-0.9) mg/dL GFR Calculation 84.2 L (90-130) mL/min Glucose 110 (65-115) mg/dL Calculated Osmolal ity 298 H (285-295) mOsm/k g Calcium 8.7 (8.5-10.5) mg/dL Total Bilirubin 0.3 (0.15-1.2) mg/dL AST 90 H (0-32) U/L ALT 65 H (0-33) U/L Alkaline Phosphata se 109 H (35-105) IU/L Total Protein 7.6 (6.6-8.7) g/dL Albumin 3.6 (3.5-5.2) g/dL Globulin 4.0 (1.3-4.6) g/dL Urine Color Yellow (Yellow) Urine Appearance Clear (CLEAR) Urine pH 7 (5-7) Ur Specific Gravit y 1.005 (1.005-1.030) Urine Protein Trace (Negative) Urine Glucose (UA) Norm (Normal) Urine Ketones Negative (Negative) Urine Blood Neg (Negative) Urine Nitrate Negative (Negative) Urine Bilirubin Neg (Negative) Urine Urobilinogen Norm (Negative) mg/dL Ur Leukocyte Louisa ase Negative (Negative) Urine RBC 0-4 H (0-2) /hpf Urine WBC 0-4 H (0-5) /hpf Ur Squamous Epith Cells 25-40 H (0-5) /hpf Amorphous Sediment Not Reportable Urine Bacteria Trace (NONE) /hpf Acetaminophen < 5.0 L (10-30) ug/mL Ethyl Alcohol (0-10) mg/dL 01/01/20 Range/Units 00:03 WBC (4.0-10.0) 10^3/ uL RBC (4.1-5.3) 10^6/u L Hgb (11.5-15.3) g/dL Hct (37.0-47.0) % MCV (81-99) fL MCH (28.0-34.0) pg MCHC (30.0-36.0) g/dL RDW (12.1-15.1) % Plt Count (130-400) 10^3/c mm MPV (7.4-10.4) fL Neut % (Auto) % Lymph % (Auto) % Lea % (Auto) % Eos % (Auto) % Baso % (Auto) % Neut # (Auto) (1.8-7.7) 10^3/u L Lymph # (Auto) (0.8-4.8) 10^3/u L Lea # (Auto) (0.2-0.9) 10^3/u L Eos # (Auto) (0.0-0.8) 10^3/u L Baso # (Auto) (0.0-0.1) 10^3/u L Nucleated RBC % (a uto) % Nucleated RBCs # /100WBC Sodium (136-145) mmol/L Potassium (3.5-5.1) mmol/L Chloride (98-107) mmol/L Carbon Dioxide (22-29) mmol/L Anion Gap (5-19) BUN (6-20) mg/dL Creatinine (0.5-0.9) mg/dL GFR Calculation (90-130) mL/min Glucose (65-115) mg/dL Calculated Osmolal ity (285-295) mOsm/k g Calcium (8.5-10.5) mg/dL Total Bilirubin (0.15-1.2) mg/dL AST (0-32) U/L ALT (0-33) U/L Alkaline Phosphata se (35-105) IU/L Total Protein (6.6-8.7) g/dL Albumin (3.5-5.2) g/dL Globulin (1.3-4.6) g/dL Urine Color (Yellow) Urine Appearance (CLEAR) Urine pH (5-7) Ur Specific Gravit y (1.005-1.030) Urine Protein (Negative) Urine Glucose (UA) (Normal) Urine Ketones (Negative) Urine Blood (Negative) Urine Nitrate (Negative) Urine Bilirubin (Negative) Urine Urobilinogen (Negative) mg/dL Ur Leukocyte Louisa ase (Negative) Urine RBC (0-2) /hpf Urine WBC (0-5) /hpf Ur Squamous Epith Cells (0-5) /hpf Amorphous Sediment Urine Bacteria (NONE) /hpf Acetaminophen (10-30) ug/mL Ethyl Alcohol 372 H* (0-10) mg/dL Imaging Data^: Other CT: Radiologist's impression: [facility] [address] [place] [address] CT Scan Report Signed Patient: Wendy De La Cruz Unit #: [id number] : 1990 Age/Sex: 29 / F ADM Date: 01/01/20 Loc: ER Room/Bed: Attending Dr: Ordering Provider/Ordering MD: Janae Fabian Date of Service: 01/01/20 Procedure(s): CT lumbar spine wo con* [id number] Accession Number(s): [id number] Report Number: [id number] PROCEDURE INFORMATION: Exam: CT Lumbar Spine Without Contrast Exam date and time: 01/01/2020 10:55 PM Age: 29 years old Clinical indication: Injury or trauma; Blunt trauma (contusions or hematomas); Patient HX: C/O lbp after fall while dancing ETOH involved; Additional info: Back pain/fall TECHNIQUE: Imaging protocol: Computed tomography images of the lumbar spine without contrast. Radiation optimization: All CT scans at this facility use at least one of these dose optimization techniques: automated exposure control; mA and/or kV adjustment per patient size (includes targeted exams where dose is matched to clinical indication); or iterative reconstruction. COMPARISON: CR Lumbar Spine 2-3 views* [id number] 02/25/2014 4:53 PM RADIATION DOSE METRICS: Total DLP (mGy-cm): 2626.38 FINDINGS: Vertebrae: Stable slight anterior wedging of L1 and L2. No pars defect or acute fracture. Still no malalignment. Discs/Spinal canal/Neural foramina: Minimal annular bulging at L3-L4 and L4-L5 without canal or significant foraminal stenosis. Shallow small central focal disc protrusion at L4-L5 as well. Other discs unremarkable. Liver: Liver density much lower than that of the spleen indicating fatty infiltration. Kidneys and ureters: Very small stone in the upper right kidney. No hydronephrosis. Soft tissues: No acute finding. CT/CT lumbar spine wo con* [id number] IMPRESSION: 1. No acute fracture. Stable slight L1 and L2 compression fractures. Slight degenerative disease detailed above. 2. Hepatic steatosis. Very small right renal stone. Radiation Dose CTDIVOL = (mGy): DLP = 2626.38 (mGy-cm) Dictated By: Lourdes Carroll MD Signed By: Lourdes Carroll MD Signed Date/Time: 01/01/202325 DD/ 24 Discharge Plan Discharge Patient Disposition: Home Clinical Impression: Compression fracture Fall Qualifiers: Encounter type: initial encounter Qualified Code(s): W19.XXXA - Unspecified fall, initial encounter Contusion of back Qualifiers: Encounter type: initial encounter Laterality: right Qualified Code(s): S20.221A - Contusion of right back wall of thorax, initial encounter Alcohol intoxication Qualifiers: Complication of substance-induced condition: uncomplicated Qualified Code(s): F10.920 - Alcohol use, unspecified with intoxication, uncomplicated Condition: Stable Prescriptions: No Action citalopram [Celexa] 20 mg tablet 20 mg PO .2 times day Qty: 60 RF: 1 trazodone 50 mg tablet 50 mg PO BEDTIME 30 Days Qty: 30 RF: 1 metformin 500 mg tablet extended release 24hr 1,000 mg PO DAILY Qty: 60 RF: 1 budesonide 180 mcg/actuation aerosol powdr breath activated 1 inh INHALATION DAILY 30 Days Qty: 1 RF: 3 buprenorphine-naloxone 8-2 mg Film 1 film BUCCAL TID RF: 0 magnesium citrate Solution 296 ml PO BID PRN (Reason: constipation) Qty: 296 RF: 2 Discharge Orders: Discharge Order (Routine); Ordered 01/02/20 Ordered By: Janae Fabian Referrals: David Villar, [employer] [Primary Care Provider] - Discharge Diet: Usual diet Discharge Activity: Limit activity as instructed Patient Instructions: Alcohol Intoxication (ED), Abuse of Alcohol (ED), Back Pain (ED), Fall Prevention (ED) Activity Restrictions/Additional Instructions: Return to the emergency department if you develop increased back pain, inability to feel your legs, bladder or bowel incontinence. You may take ibuprofen as needed for pain, may take [id number] Follow-up with your primary care provider next week if not better Take it easy over the next couple of days, may apply warm moist heat alternate with cool compresses, apply to areas of discomfort Discharge Date/Time: 01/02/20 04:25 Coding Level of Care Code ED Barkeeper for Bartolo Fwcassius Exam Comprehensive
[2020-01-02] MEDS: folic acid 1 MG, multivitamin inj 10 ML, thiamine 100 MG in sodium chloride 0.9% 1,000 ML 252.8 MG IV (00:10)
[2020-01-02 00:29] LABS: Basophils % 0.5 %; Eosinophils # 0.4 10^3/uL (0.0-0.8); Eosinophils % 6.6 %; Hematocrit 45.8 % (37.0-47.0); Hemoglobin 14.7 g/dL (11.5-15.3); Lymphocytes # 2.6 10^3/uL (0.8-4.8); Lymphocytes % 42.5 %; Mean Corpuscular HGB Conc 32.1 g/dL (30.0-36.0); Mean Corpuscular Hemoglobin 32.2 pg (28.0-34.0); Mean Corpuscular Volume 100.2 fL (81-99); Mean Platelet Volume 9.5 fL (7.4-10.4); Monocytes # 0.3 10^3/uL (0.2-0.9); Neutrophils # 2.72 10^3/uL (1.8-7.7); Neutrophils % 45.2 %; Nucleated Red Blood Cells % 0 %; Platelet Count 161 10^3/cmm (130-400); Red Blood Count 4.57 10^6/uL (4.1-5.3); Red Cell Distribution Width 14.2 % (12.1-15.1)
[2020-01-02 00:32] LABS: Add Urine Microscopic? YES; Bilirubin Urine Neg (Negative); Blood Urine Neg (Negative); Glucose Urine UA Norm (Normal); Ketones Urine Negative (Negative); Leukocyte Esterase Urine Negative (Negative); Nitrate Urine Negative (Negative); Protein Urine Trace (Negative); Specific Gravity, Urine 1.005 (1.005-1.030); Urine Appearance Clear (CLEAR); Urine Color Yellow (Yellow); Urobilinogen Urine Norm (Negative); pH Urine 7 (5-7)
[2020-01-02] MEDS: ketorolac 30 mg/mL INJ IVP (00:44)
[2020-01-02 00:46] LABS: Alanine Aminotransferase 65 U/L (0-33); Albumin Level 3.6 g/dL (3.5-5.2); Alkaline Phosphatase 109 IU/L (35-105); Blood Urea Nitrogen 6 mg/dL (6-20); Calcium 8.7 mg/dL (8.5-10.5); Carbon Dioxide 30 mmol/L (22-29); Chloride 105 mmol/L (98-107); Glomerular Filtration Rate 84.2 mL/min (90-130); Glucose 110 mg/dL (65-115); Osmolality Calculated 298 mOsm/kg (285-295); Sodium 145 mmol/L (136-145); Total Bilirubin 0.3 mg/dL (0.15-1.2); Total Protein 7.6 g/dL (6.6-8.7)
[2020-01-02 00:48] LABS: Acetaminophen < 5.0 ug/mL (10-30); Anion Gap 13.5 (5-19); Aspartate Amino Transferase 90 U/L (0-32)
[2020-01-02 00:49] LABS: Potassium 3.5 mmol/L (3.5-5.1)
[2020-01-02 01:00] VITALS: BP 111/49; PULSE 116; RESP 16; O2SAT 93
[2020-01-02 01:09] LABS: Add Urine Culture? No; Bacteria Urine TRACE /hpf; RBC Urine 0-4 /hpf (0-2); Squamous Epithelial Cell Urine 25-40 /hpf (0-5); WBC Urine 0-4 /hpf (0-5)
[2020-01-02 01:16] LABS: Alcohol Level 372 mg/dL (0-10)
--- NOTE | 2020-01-02 02:09 | PC.SOCIAL ---
Yarn Tester Qi León Approved the ride home via uber $56.50
[2020-01-02 03:00] VITALS: BP 116/65; PULSE 84; RESP 18; O2SAT 93
[2020-01-02] MEDS: acetaminophen 325 mg Tablet 650 MG PO (03:46)
[2020-01-02 04:25] VITALS: BP 113/45; PULSE 82; RESP 17; TEMP 36.9; O2SAT 94
== END 2020-01-02 04:25 | disposition home or self-care (01) ==
PROVIDERS: Emergency Provider Nurse Practitioner Family; PCP Nurse Practitioner
DX: S20.221A Contusion of right back wall of thorax, initial encounter (principal); F10.920 Alcohol use, unspecified with intoxication, uncomplicated; S32.010A Wedge compression fracture of first lumbar vertebra, initial encounter for closed fracture; S32.020A Wedge compression fracture of second lumbar vertebra, initial encounter for closed fracture; W01.0XXA Fall on same level from slipping, tripping and stumbling without subsequent striking against object, initial encounter; I10 Essential (primary) hypertension; Z86.19 Personal history of other infectious and parasitic diseases; F17.210 Nicotine dependence, cigarettes, uncomplicated
CPT/HCPCS: 12345; 72131; 80053; 80307; 81001; 85025; 96361; 96374; 96375; 99283; 99284; J1885; J3411; J3490; J7030

== ENCOUNTER 2020-01-05 17:19 | Emergency (ER) | payer SELFPAY ==
[2020-01-05 17:25] VITALS: BP 154/105; PULSE 84; RESP 18; TEMP 36.8; O2SAT 92; BMI 46.3
--- NOTE | 2020-01-05 18:10 | PC.NURSE ---
This RN was out in the waiting room grabbing another patient when the patient walked up to me to report that she feels like her symptoms are getting worse. This RN checked the patient out. Patient has hives to her abd and back. Patient also feels like she is having a hard time breathing. No physical evidence found of the patients throat swelling or any respiratory distress. This RN will continue to monitor the patient and try to move patient back to a room as soon as a room is available for the patient.
--- NOTE | 2020-01-05 18:45 | W.ED.ALLEREA ---
HPI - Allergic Reaction General: Chief complaint: Allergic Reaction Stated complaint: ALLERGIC RXN Time Seen by Provider: 01/05/20 18:35 Source: patient Mode of arrival: EMS Limitations: no limitations History of Present Illness: HPI narrative: Patient snorted about 8 mg of Suboxone because she says she was out of her medication and shortly after she developed hives, itching, and states that she feels like she is having a throat closing right now. She is also having some difficulty breathing. complaint: allergic reaction and hives Onset (ago): hour(s) (1) Exposure: medication Associated symptoms: Reports difficulty breathing, itching, nausea and rash; Deny abdominal pain, dysphagia, dizziness, facial swelling, hoarseness, lip swelling, tongue swelling or vomiting Severity: moderate Treatment prior to arrival: none Previous Allergic Reaction History: none Review of Systems General: Reports: 10 or more systems reviewed and unremarkable except in HPI and below Const: Denies: fever(s), chills or body aches Eyes: Denies: change in vision or blurry vision ENMT: Denies: hoarseness Card: Reports: chest pain; Denies: palpitations, irregular heart rhythm, edema or swelling of feet/ankles Resp: Denies: dyspnea, productive cough or non-productive cough GI: Reports: nausea; Denies: abdominal pain, vomiting or dysphagia : Denies: flank pain, difficulty voiding, dysuria, urinary frequency, urinary urgency or urinary hesitancy Musc: Denies: neck pain, back pain or extremity swelling Skin/Breast: Reports: rash, pruritus and erythema Neuro: Denies: dizziness Endo: Denies: polyuria, polydipsia or tired all the time All/Imm: Denies: tongue swelling or facial swelling PFSH ED PFSH: Medical History Alcohol abuse with alcohol-induced mood disorder Patient currently detoxed. Essential (primary) hypertension not on any chronic treatment 09/26 Family history of alpha 1 antitrypsin deficiency Fibromyalgia Generalized anxiety disorder H/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, includes meth, heroin, others, on buprenorphine Hepatitis C antibody positive in blood Hx of abscess of skin and subcutaneous tissue right arm Major depressive disorder, recurrent, moderate Nontoxic thyroid nodule Polycystic ovarian syndrome polycystic ovaries not notated on CT abdomen/pelvis 01/26 Unspecified asthma, uncomplicated onset in childhood Surgical History Hx of cholecystectomy Family History Other [id number] deficiency Drug abuse, amphetamine type Hypertension Social History Smoking and tobacco status: current every day smoker cigarettes Packs smoked per day: 1.5 Years cigarettes smoked: 15 Quit status (tobacco): considering quitting Second hand smoke exposure: Yes Smoking risk assessment/counseling performed?: Yes Alcohol intake: current Alcohol intake frequency: 3 or more drinks per day Alcohol type: hard liquor Desire information about alcohol rehabilitation?: Yes Counseling given: No Desire information about substance/drug rehabilitation?: No Counseling given: No Other details last substance use: Has used methamphetamine, heroin, pain medications. Adopted: No Caregiver/support person: No Lives independently: Yes Household members: friend(s) Housing: Manufactured/Mobile home Marital status: Single Number of children: 2 service: No Current occupational status: employed History of recent travel: No Current gender identity: Female Female Reproductive History: Date of last menstrual period: 12/29/19 Para: 2 Physical Exam Const: COMMON NORMALS: no acute distress, average body habitus, patient oriented x3, no limitations, healthy appearing, alert and well nourished HENMT: COMMON NORMALS: normocephalic, atraumatic and moist oral mucous membranes HEAD & SCALP: normocephalic and atraumatic Neck/C-Spine: COMMON NORMALS: no meningeal signs and no JVD Resp: COMMON NORMALS: normal respiratory effort, No retractions, No use of accessory muscles and percussion normal AUSCULTATION: wheezes expiratory wheezes (Widespread) PERCUSSION: percussion normal Cardio: COMMON NORMALS: no JVD, regular rate, regular rhythm, S1 normal heart sound present, S2 normal heart sound present, No gallops present (Cardio), No clicks present (Cardio), No murmurs present (Cardio), No rub (Cardio) and Peripheral pulses 2+ throughout RATE: regular rate RHYTHM: regular rhythm HEART SOUNDS: S1 normal heart sound present and S2 normal heart sound present PERIPHERAL PULSES: Peripheral pulses 2+ throughout GI: COMMON NORMALS: Normal to inspection, nondistended, normoactive bowel sounds present, Soft to palpation, non-tender, No hepatosplenomegaly present, no masses and no bruits PALPATION: Yes Soft to palpation and Yes No hepatosplenomegaly present : COMMON NORMALS: Yes no CVA tenderness BLADDER/KIDNEY EXAM: Yes no CVA tenderness Back/Pelvis: COMMON NORMALS: no CVA tenderness Extremity: COMMON NORMALS: normal to inspection, full ROM, capillary refill normal, no calf tenderness and no pedal edema Neuro: COMMON NORMALS: patient oriented x3 SENSORIUM/ORIENTATION: Yes alert MENINGEAL SIGNS: Yes no meningeal signs Skin: COMMON NORMALS: no rashes or lesions noted, no wounds, turgor normal, no jaundice, no petechiae and no mottling GENERAL SKIN EXAM: no rashes or lesions noted and turgor normal RASHES: rashes noted (Widespread urticarial rashes on her trunk, gluteal region, and thighs.) Course Reevaluation(s): Reevaluation #1: Patient seen, hives have all resolved. She has a little bit of tremors likely from the epinephrine. We will discharge her home with a prescription for oral steroids. She is advised to take Benadryl as needed and is to follow-up with her primary care provider tomorrow. She voiced understanding and is in agreement with the plan Time: 20:40 Vital Signs: Vital signs: Vital Signs Temperature 98.3 F 01/05/20 17:25 Pulse Rate 115 H 01/05/20 21:00 Respiratory Rate 20 H 01/05/20 21:00 Blood Pressure 155/80 01/05/20 21:00 Pulse Oximetry 95 01/05/20 21:00 MDM - Allergic Reaction MDM Narrative: Medical decision making narrative: 29-year-old female patient who seem to have an anaphylactic reaction after she snorted some Suboxone. She was given intramuscular adrenaline, intravenous Solu-Medrol, Benadryl, famotidine. Symptoms resolved following the medication administration and she is discharged home with a prescription for oral steroids. She is to follow-up with her primary care provider tomorrow. Medical Records: Attestation: I reviewed the patient's medical records. Lab Data: Attestation: I reviewed the patient's lab results. Critical Care Time Critical Care Time: Critical Care Time: Yes Total Critical Care Time: 30 Attestation: This case had a high probability of a clinically significant, sudden, or life threatening deterioration of this patient's condition which required my full and direct attention, intervention and personal management. Discharge Plan Discharge Patient Disposition: Home Clinical Impression: Anaphylaxis Qualifiers: Encounter type: initial encounter Qualified Code(s): T78.2XXA - Anaphylactic shock, unspecified, initial encounter Condition: Stable Prescriptions: New prednisone 20 mg tablet 60 mg PO DAILY 5 Days Qty: 15 RF: 0 EpiPen 2-Gerardo 0.3 mg/0.3 mL auto-injector 0.3 mg IM Q10M PRN (Reason: anaphylaxis) Qty: 2 RF: 0 Continued citalopram [Celexa] 20 mg tablet 20 mg PO .2 times day Qty: 60 RF: 1 trazodone 50 mg tablet 50 mg PO BEDTIME 30 Days Qty: 30 RF: 1 metformin 500 mg tablet extended release 24hr 1,000 mg PO DAILY Qty: 60 RF: 1 cephalexin 500 mg capsule 500 mg PO TID 10 Days Qty: 30 RF: 0 ibuprofen 800 mg tablet 800 mg PO TID PRN (Reason: pain) 10 Days Qty: 30 RF: 0 albuterol sulfate 2.5 mg /3 mL (0.083 %) solution for nebulization 2.5 mg INHALATION QID PRN (Reason: shortness of breath or wheezing) 14 Days Qty: 75 RF: 0 (DME) nebulizer accessories Kit See Rx Instructions .ROUTE .MEDSUPPLY Qty: 1 RF: 0 budesonide 180 mcg/actuation aerosol powdr breath activated 1 inh INHALATION DAILY 30 Days Qty: 1 RF: 3 prazosin 1 mg capsule 1 mg PO BEDTIME RF: 0 thiamine HCl (vitamin B1) 100 mg tablet 100 mg PO DAILY RF: 0 Prozac 20 mg Capsule 20 mg PO DAILY RF: 0 buprenorphine-naloxone 8-2 mg Film 1 film BUCCAL TID RF: 0 magnesium citrate Solution 296 ml PO BID PRN (Reason: constipation) Qty: 296 RF: 2 Discontinued prednisone 10 mg tablets,dose pack See Rx Instructions PO PER PKG DIR Qty: 21 RF: 0 Discharge Orders: Discharge Order (Routine); Ordered 01/05/20 Ordered By: Carmen Robles Referrals: David Villar, [facility] [Primary Care Provider] - 01/06/20 Discharge Diet: Usual diet Discharge Activity: Increase activity as tolerated Patient Instructions: Anaphylaxis (ED) Activity Restrictions/Additional Instructions: Return for any new or worsening symptoms. Follow-up with your primary care provider tomorrow for further evaluation and management. Take the steroids as prescribed. Use the EpiPen as needed for any severe allergic reaction. Take Benadryl as needed for allergic symptoms. Discharge Date/Time: 01/05/20 21:03 Coding Level of Care Code ED Business Technology Architect for Chg Fwd Exam Comprehensive
[2020-01-05] MEDS: EPINEPHrine 1 mg/mL INJ 0.5 MG IM (19:25)
[2020-01-05] MEDS: sodium chloride 0.9% 1,000 ML 999 ML IV (19:30)
[2020-01-05] MEDS: diphenhydrAMINE 50 mg/mL SDV 1mL IVP (19:35)
[2020-01-05] MEDS: famotidine 20 mg/2 mL INJ 40 MG IVP (19:40)
--- NOTE | 2020-01-05 20:01 | PC.NURSE ---
pt began vomiting and becoming diaphoretic causing the adhesive to fail. IV catheter became dislodged from vein. Dr notified. Since pt received all IVP meds and was on TKO fluids, ok to wait for additonal orders prior to starting IV
[2020-01-05 20:19] VITALS: BP 155/80; PULSE 92; RESP 20; O2SAT 94
[2020-01-05 21:00] VITALS: BP 155/80; PULSE 115; RESP 20; O2SAT 95
--- NOTE | 2020-01-05 21:09 | PC.NURSE ---
during chart review, noticed automatic data processing planner incorrect for IV insertion time. Correct time of IV insertion is 1919
== END 2020-01-05 21:03 | disposition home or self-care (01) ==
PROVIDERS: Emergency Provider Family Medicine; PCP Nurse Practitioner
DX: T78.2XXA Anaphylactic shock, unspecified, initial encounter (principal); I10 Essential (primary) hypertension; Z86.19 Personal history of other infectious and parasitic diseases; F17.210 Nicotine dependence, cigarettes, uncomplicated
CPT/HCPCS: 12345; 96361; 96372; 96374; 96375; 99282; 99283; J0171; J1200; J2930; J3490; J7030

== ENCOUNTER → 2020-01-06 15:34 | Outpatient (BNVA) | payer MEDICAID, SELFPAY | PROVIDERS: PCP Nurse Practitioner; Visit Provider Nurse Practitioner | DX: Z11.59 Encounter for screening for other viral diseases (principal) | CPT/HCPCS: 87635 ==

== ENCOUNTER 2020-01-21 15:07 | Inpatient (IN) | payer SELFPAY ==
--- NOTE | 2020-01-21 15:16 | ED_ITS ---
HPI - Psych General: Chief Complaint: Psychiatric Symptoms Stated Complaint: SI/ ETOH Time Seen by Provider: 01/21/20 15:09 Source: patient and EMS Mode of arrival: EMS Limitations: no limitations History of Present Illness: HPI Narrative: 29-year-old female who is here with EMS. She is a chronic alcoholic states she has been depressed and having suicidal thoughts. Patient current he denies any active suicidal plans. She is intoxicated. She denies any worsening or improving factors. Patient is very argumentative and is trying to go outside to smoke. Associated symptoms: Reports depression and suicidal ideation Review of Systems Const: Denies: fever(s), chills, body aches or change in appetite Eyes: Denies: blurry vision or eye discomfort ENMT: Denies: throat pain or dental pain Card: Denies: chest pain Resp: Denies: dyspnea GI: Denies: abdominal pain, nausea, vomiting or diarrhea : Denies: dysuria Musc: Denies: neck pain or back pain Skin/Breast: Denies: rash Neuro: Denies: headache(s) Psych: Reports: depression and suicidal ideation Dg/Lymph: Denies: easy bruising All/Imm: Denies: urticaria PFSH ED PFSH: Medical History (Updated 01/21/20 @ 16:56 by Niranjan Martinez MD) Alcohol abuse with alcohol-induced mood disorder Essential (primary) hypertension not on any chronic treatment 09/26 Family history of alpha 1 antitrypsin deficiency Fibromyalgia Generalized anxiety disorder H/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, includes meth, heroin, others, on buprenorphine Hepatitis C antibody positive in blood Hx of abscess of skin and subcutaneous tissue right arm Major depressive disorder, recurrent, moderate Nontoxic thyroid nodule Polycystic ovarian syndrome polycystic ovaries not notated on CT abdomen/pelvis 01/26 Unspecified asthma, uncomplicated onset in childhood Surgical History Hx of cholecystectomy Family History Other Usape-[id number] deficiency Drug abuse, amphetamine type Hypertension Social History Smoking and tobacco status: current every day smoker cigarettes Packs smoked per day: 1.5 Years cigarettes smoked: 15 Quit status (tobacco): considering quitting Second hand smoke exposure: Yes Smoking risk assessment/counseling performed?: Yes Alcohol intake: current Alcohol intake frequency: 3 or more drinks per day Alcohol type: hard liquor Desire information about alcohol rehabilitation?: Yes Counseling given: No Desire information about substance/drug rehabilitation?: No Counseling given: No Other details last substance use: Has used methamphetamine, heroin, pain medications. Adopted: No Caregiver/support person: No Lives independently: Yes Household members: friend(s) Housing: Manufactured/Mobile home Marital status: Single Number of children: 2 service: No Current occupational status: employed History of recent travel: No Current gender identity: Female Female Reproductive History: Date of last menstrual period: 12/29/19 Para: 2 Physical Exam Const: COMMON NORMALS: no acute distress, patient oriented x3 and healthy appearing HENMT: COMMON NORMALS: normocephalic and atraumatic HEAD & SCALP: normocephalic and atraumatic Eye: COMMON NORMALS: Equal, round and reactive pupils present and EOMs intact bilaterally PUPIL: Yes Equal, round and reactive pupils present Neck/C-Spine: COMMON NORMALS: full ROM and supple Chest: COMMONS NORMALS: normal inspection of the chest and normal palpation of entire chest wall Resp: COMMON NORMALS: normal respiratory effort, No retractions, No use of accessory muscles and clear to auscultation bilaterally AUSCULTATION: clear to auscultation bilaterally Cardio: COMMON NORMALS: regular rate, regular rhythm and No murmurs present (Cardio) RATE: regular rate RHYTHM: regular rhythm GI: COMMON NORMALS: Normal to inspection, nondistended, normoactive bowel sounds present, Soft to palpation, non-tender and no masses PALPATION: Yes Soft to palpation Extremity: COMMON NORMALS: normal to inspection and full ROM Neuro: COMMON NORMALS: patient oriented x3, moves all extremities and no focal motor deficits Psych: COMMON NORMALS: mental status grossly normal and cooperative MOOD & AFFECT: Yes depressed mood Skin: COMMON NORMALS: no rashes or lesions noted and no wounds GENERAL SKIN EXAM: no rashes or lesions noted MDM - Psych MDM Narrative: Medical decision making narrative: Patient presents for suicidal ideation along with alcohol intoxication. Patient is well-appearing here. Patient is medically cleared and I spoke to psychiatrist and will admit to the [facility]PU. Lab Data: Labs: Lab Results 01/21/20 01/21/20 01/21/20 Range/Units 15:29 15:29 16:20 WBC 7.6 (4.0-10.0) 10^3/ uL RBC 4.57 (4.1-5.3) 10^6/u L Hgb 14.9 (11.5-15.3) g/dL Hct 48.5 H (37.0-47.0) % MCV 106.1 H (81-99) fL MCH 32.6 (28.0-34.0) pg MCHC 30.7 (30.0-36.0) g/dL RDW 16.1 H (12.1-15.1) % Plt Count 138 (130-400) 10^3/c mm MPV 10.3 (7.4-10.4) fL Neut % (Auto) 40.4 % Lymph % (Auto) 48.4 % Grant % (Auto) 4.9 % Eos % (Auto) 5.0 % Baso % (Auto) 0.9 % Neut # (Auto) 3.05 (1.8-7.7) 10^3/u L Lymph # (Auto) 3.7 (0.8-4.8) 10^3/u L Grant # (Auto) 0.4 (0.2-0.9) 10^3/u L Eos # (Auto) 0.4 (0.0-0.8) 10^3/u L Baso # (Auto) 0.1 (0.0-0.1) 10^3/u L Nucleated RBC % (a uto) 0 % Nucleated RBCs # 0.0 /100WBC Sodium 141 (136-145) mmol/L Potassium 4.7 (3.5-5.1) mmol/L Chloride 105 (98-107) mmol/L Carbon Dioxide 24 (22-29) mmol/L Anion Gap 16.7 (5-19) BUN 9 (6-20) mg/dL Creatinine 0.6 (0.5-0.9) mg/dL GFR Calculation 117.4 (90-130) mL/min Glucose 84 (65-115) mg/dL Calculated Osmolal ity 290 (285-295) mOsm/k g Calcium 8.9 (8.5-10.5) mg/dL Total Bilirubin 0.3 (0.15-1.2) mg/dL AST 157 H (0-32) U/L ALT 77 H (0-33) U/L Alkaline Phosphata se 79 (35-105) IU/L Total Protein 7.4 (6.6-8.7) g/dL Albumin 4.3 (3.5-5.2) g/dL Globulin 3.1 (1.3-4.6) g/dL HCG, Qual Negative (Negative) Salicylates < 0.3 L (3-10) mg/dL Urine Opiates Scre en (Negative) ng/mL Acetaminophen < 5.0 L (10-30) ug/mL Ur Barbiturates Sc reen (Negative) ng/mL Ur Phencyclidine S crn (Negative) ng/mL Ur Amphetamines Sc reen (Negative) ng/mL U Benzodiazepines Scrn (Negative) ng/mL Urine Cocaine Scre en (Negative) ng/mL U Marijuana (THC) Screen (Negative) ng/mL Ethyl Alcohol 290 H (0-10) mg/dL //20 Range/Units 16:20 WBC (4.0-10.0) 10^3/ uL RBC (4.1-5.3) 10^6/u L Hgb (11.5-15.3) g/dL Hct (37.0-47.0) % MCV (81-99) fL MCH (28.0-34.0) pg MCHC (30.0-36.0) g/dL RDW (12.1-15.1) % Plt Count (130-400) 10^3/c mm MPV (7.4-10.4) fL Neut % (Auto) % Lymph % (Auto) % Grant % (Auto) % Eos % (Auto) % Baso % (Auto) % Neut # (Auto) (1.8-7.7) 10^3/u L Lymph # (Auto) (0.8-4.8) 10^3/u L Grant # (Auto) (0.2-0.9) 10^3/u L Eos # (Auto) (0.0-0.8) 10^3/u L Baso # (Auto) (0.0-0.1) 10^3/u L Nucleated RBC % (a uto) % Nucleated RBCs # /100WBC Sodium (136-145) mmol/L Potassium (3.5-5.1) mmol/L Chloride (98-107) mmol/L Carbon Dioxide (22-29) mmol/L Anion Gap (5-19) BUN (6-20) mg/dL Creatinine (0.5-0.9) mg/dL GFR Calculation (90-130) mL/min Glucose (65-115) mg/dL Calculated Osmolal ity (285-295) mOsm/k g Calcium (8.5-10.5) mg/dL Total Bilirubin (0.15-1.2) mg/dL AST (0-32) U/L ALT (0-33) U/L Alkaline Phosphata se (35-105) IU/L Total Protein (6.6-8.7) g/dL Albumin (3.5-5.2) g/dL Globulin (1.3-4.6) g/dL HCG, Qual (Negative) Salicylates (3-10) mg/dL Urine Opiates Scre en Negative (Negative) ng/mL Acetaminophen (10-30) ug/mL Ur Barbiturates Sc reen Negative (Negative) ng/mL Ur Phencyclidine S crn Negative (Negative) ng/mL Ur Amphetamines Sc reen Negative (Negative) ng/mL U Benzodiazepines Scrn Negative (Negative) ng/mL Urine Cocaine Scre en Negative (Negative) ng/mL U Marijuana (THC) Screen Negative (Negative) ng/mL Ethyl Alcohol (0-10) mg/dL Discharge Plan Discharge Patient Disposition: Admitted As Inpatient Clinical Impression: ETOH abuse, Suicidal ideation Condition: Stable Coding Level of Care Code ED Collection Systems Worker for Bartolo Fwd Exam Comprehensive
[2020-01-21] MEDS: LORazepam 2 mg/mL INJ 1 mL (15:29)
[2020-01-21 15:43] VITALS: BP 160/99; PULSE 106; RESP 16; O2SAT 97; BMI 51.5
[2020-01-21 15:47] LABS: Basophils # 0.1 10^3/uL (0.0-0.1); Basophils % 0.9 %; Eosinophils # 0.4 10^3/uL (0.0-0.8); Hematocrit 48.5 % (37.0-47.0); Hemoglobin 14.9 g/dL (11.5-15.3); Lymphocytes # 3.7 10^3/uL (0.8-4.8); Lymphocytes % 48.4 %; Mean Corpuscular HGB Conc 30.7 g/dL (30.0-36.0); Mean Corpuscular Hemoglobin 32.6 pg (28.0-34.0); Mean Corpuscular Volume 106.1 fL (81-99); Mean Platelet Volume 10.3 fL (7.4-10.4); Monocytes # 0.4 10^3/uL (0.2-0.9); Monocytes % 4.9 %; Neutrophils # 3.05 10^3/uL (1.8-7.7); Neutrophils % 40.4 %; Nucleated Red Blood Cells % 0 %; Platelet Count 138 10^3/cmm (130-400); Red Blood Count 4.57 10^6/uL (4.1-5.3); Red Cell Distribution Width 16.1 % (12.1-15.1); White Blood Count 7.6 10^3/uL (4.0-10.0)
--- NOTE | 2020-01-21 16:07 | PC.NURSE ---
pt threatening to leave and go smoke. pt told hospital policy and that she could not leave facility. pt threatening staff. CODE 10 called and pt directed to sit back to bed. security and ER physician at bedside.
[2020-01-21] MEDS: ziprasidone 20 mg/mL SDV (16:23)
[2020-01-21 16:31] LABS: HCG Qualitative Urine. Negative (Negative)
[2020-01-21 16:38] LABS: Amphetamines Screen Urine Negative (Negative); Barbiturates Screen Urine Negative (Negative); Benzodiazepines Screen Urine Negative (Negative); Cocaine Screen Urine Negative (Negative); Opiate Screen Urine Negative (Negative); PCP Screen Urine Negative (Negative); THC Screen Urine Negative (Negative)
[2020-01-21 16:43] LABS: Acetaminophen < 5.0 ug/mL (10-30); Albumin Level 4.3 g/dL (3.5-5.2); Alcohol Level 290 mg/dL (0-10); Alkaline Phosphatase 79 IU/L (35-105); Anion Gap 16.7 (5-19); Blood Urea Nitrogen 9 mg/dL (6-20); Calcium 8.9 mg/dL (8.5-10.5); Carbon Dioxide 24 mmol/L (22-29); Chloride 105 mmol/L (98-107); Globulin 3.1 g/dL (1.3-4.6); Glomerular Filtration Rate 117.4 mL/min (90-130); Glucose 84 mg/dL (65-115); Osmolality Calculated 290 mOsm/kg (285-295); Potassium 4.7 mmol/L (3.5-5.1); Salicylate < 0.3 mg/dL (3-10); Sodium 141 mmol/L (136-145); Total Bilirubin 0.3 mg/dL (0.15-1.2); Total Protein 7.4 g/dL (6.6-8.7)
[2020-01-21 16:44] LABS: Alanine Aminotransferase 77 U/L (0-33); Aspartate Amino Transferase 157 U/L (0-32)
[2020-01-21 17:58] VITALS: RESP 18
[2020-01-21 18:38] VITALS: BP 140/87; PULSE 117; RESP 22; TEMP 36.9; O2SAT 93
[2020-01-21 20:01] VITALS: BP 140/87; PULSE 117; RESP 16; TEMP 36.9; O2SAT 93
[2020-01-21] MEDS: trazodone 150 mg Tablet PO (21:53)
[2020-01-21] MEDS: buprenorphine-naloxone 4-1 mg Film 2 EACH SUBLINGUAL (21:53)
[2020-01-21] MEDS: OLANZapine 5 mg ODT PO (21:53)
[2020-01-21] MEDS: prazosin 1 mg Capsule PO (21:54)
[2020-01-22 06:00] VITALS: BP 106/67; PULSE 78; RESP 14; TEMP 36.4; O2SAT 90
[2020-01-22] MEDS: metformin XR 500 MG Tablet 1000 MG PO (08:03)
[2020-01-22 08:04] LABS: Glucose Point of Care 134 mg/dL (70-110)
[2020-01-22] MEDS: thiamine 100 mg Tablet PO (08:04)
[2020-01-22] MEDS: buprenorphine-naloxone 4-1 mg Film 2 EACH SUBLINGUAL ×3 (08:04→20:52)
[2020-01-22] MEDS: fluoxetine 20 mg Capsule PO (08:04)
[2020-01-22 08:13] VITALS: PULSE 97; RESP 16; O2SAT 96
[2020-01-22] MEDS: budesonide 0.5 mg/2 mL Neb INHALATION (08:13)
[2020-01-22 13:37] VITALS: BP 117/76; PULSE 67; RESP 18; TEMP 36.4; O2SAT 95
--- NOTE | 2020-01-22 13:43 | PM.NHP ---
Providers/Chief Complaint Admitting Physician: Lan Loyd MD Primary Care Provider: VIRGINIA Choudhary Chief Complaint: SI/ ETOH HPI NPU History of Present Illness Wendy De La Cruz is a 29 year old female who presented to the emergency department with the following report: Chief Complaint: Psychiatric Symptoms Stated Complaint: SI/ ETOH Time Seen by Provider: 01/21/20 15:09 Source: patient and EMS Mode of arrival: EMS Limitations: no limitations History of Present Illness: HPI Narrative: 29-year-old female who is here with EMS. She is a chronic alcoholic states she has been depressed and having suicidal thoughts. Patient current he denies any active suicidal plans. She is intoxicated. She denies any worsening or improving factors. Patient is very argumentative and is trying to go outside to smoke. Associated symptoms: Reports depression and suicidal ideation. She was admitted to the neuropsychiatric unit for definitive treatment of those issues. She presents today reporting that she feels like her drinking has caused her significant problems and has not had a test to her Effexor. We discussed the risk benefits and alternatives of me identifying what her previous dose was and then getting her back on the medication. She believes that her insurance is going to kick in so she should not have a problem in the future. She also endorses that she has been drinking/relapsed and that she is having some withdrawal issues. We discussed her last inpatient evaluation which was on 11/13/2019 and she denies any substantive changes since then and so an excerpt is included below. She reports that her p.o. or someone was really feeling like she would benefit from getting treatment in [place] and so she was very adamant that she wanted to be transferred but we discussed the fact that we do not transfer laterally and that ambulance is are basically required to go to the closest facility that can manage the situation. Per her 11/13/2019 inpatient psychiatric eval: History of Present Illness Chief complaint: My medications really are not working for me. They do not give me any energy. Wendy De La Cruz is a 29 year old female who now presents for the sixth time this calendar year for admission to the psychiatric unit if alcohol poisoning. She presented the emergency room with a blood alcohol level of 404. She was discharged from this unit 35 days ago. She apparently has not been doing much of anything other than ingesting alcohol and taking her Suboxone. She did not report to [facility] because she says she cannot afford it. She is not receiving any out patient therapy other than Suboxone from the [facility] who she says gives it to her for free. She continues to state that going to rehab is not something she is interested in. Her goal at this time is to sober up and feel better. She denies suicidal or homicidal ideation. ER physician HPI narrative: 29-year-old massively obese female who presents self-admittedly extremely intoxicated after drinking a lot of alcohol. Patient admits to drinking a lot of alcohol on a daily basis. She had called the emergency room earlier today stating she wanted to be seen we advised her to either come to the emergency room by private vehicle or call an ambulance if needed we have and offered to call an ambulance for her but she would not give us her location. Eventually she did call an ambulance herself was brought in by EMS and in route she became somewhat combative and was given 250 mg of ketamine. She is lethargic and pleasantly hallucinating on arrival after the combination of alcohol and ketamine. She has several bruises of varying ages on her extremities and an abrasion on her right anterior tibia MD complaint: alcohol intoxication Laboratory Tests 09/04/19 09/08/19 11/12/19 20:54 14:13 15:41 AST 170 H ALT 116 H Alkaline Phosphatase 104 Urine Opiates Screen Ur Barbiturates Screen Ur Phencyclidine Scrn Ur Amphetamines Screen U Benzodiazepines Scrn Urine Cocaine Screen U Marijuana (THC) Screen Ethyl Alcohol 387 H* 393 H* 404 H* 11/12/19 11/12/19 16:07 19:57 AST ALT Alkaline Phosphatase Urine Opiates Screen Negative Ur Barbiturates Screen Negative Ur Phencyclidine Scrn Negative Ur Amphetamines Screen Negative U Benzodiazepines Scrn Negative Urine Cocaine Screen Negative U Marijuana (THC) Screen Positive H Ethyl Alcohol 255 H Mental health history: Unchanged from 10/03/2019 Social history: Unchanged from a 03 October 2019 Meds NPU Home Medications Medication Instructions Recorded Confirmed Last Taken Type budesonide 1 inh INHALATION DAILY 30 Days #1 09/21/19 11/12/19 Unknown Rx each buprenorphine-naloxone 1 film BUCCAL TID 10/02/19 10/02/19 11/12/19 History fluoxetine 20 mg PO DAILY 30 Days #30 cap 10/07/19 Unknown Rx trazodone 150 mg PO BEDTIME 30 Days #30 tab 10/07/19 11/11/19 Rx Allergies Allergy/AdvReac Type Severity Reaction Status Date / Time codeine Allergy Unknown ALGY-Hives Verified 11/12/19 14:51 PFSH NPU PFSH: Medical History Alcohol abuse with alcohol-induced mood disorder Patient currently detoxed. Allergic rhinitis, unspecified Essential (primary) hypertension not on any chronic treatment 09/26 Family history of alpha 1 antitrypsin deficiency Fibromyalgia Generalized anxiety disorder H/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, includes meth, heroin, others, on buprenorphine Hepatitis C antibody positive in blood hepatomegaly, splenomegaly, low platelets transiently noted -09/26, no treatment Hx of abscess of skin and subcutaneous tissue right arm Major depressive disorder, recurrent, moderate Nontoxic thyroid nodule Polycystic ovarian syndrome polycystic ovaries not notated on CT abdomen/pelvis 01/26 Unspecified asthma, uncomplicated onset in childhood Surgical History Hx of cholecystectomy Family History Other [id number] deficiency Drug abuse, amphetamine type Hypertension Social History Smoking and tobacco status: current every day smoker cigarettes Packs smoked per day: 1.5 Years cigarettes smoked: 15 Quit status (tobacco): considering quitting Second hand smoke exposure: Yes Smoking risk assessment/counseling performed?: Yes Alcohol intake: current Alcohol intake frequency: 0-2 Drinks per Day Alcohol type: hard liquor Desire information about alcohol rehabilitation?: Yes Counseling given: No Desire information about substance/drug rehabilitation?: No Counseling given: No Adopted: No Caregiver/support person: No Lives independently: Yes Household members: friend(s) Housing: Manufactured/Mobile home Marital status: Single Number of children: 2 service: No Current occupational status: employed History of recent travel: No Current gender identity: Female Meds NPU Home Medications Medication Instructions Recorded Confirmed Last Taken Type budesonide 1 inh INHALATION DAILY 30 Days #1 09/21/19 01/21/20 Unknown Rx each magnesium citrate 296 ml PO BID PRN #296 ml 12/19/19 01/21/20 Unknown Rx metformin 500 mg tablet,extended 1,000 mg PO DAILY #60 tab 12/23/19 01/21/20 Unknown Rx release 24hr albuterol sulfate 2.5 mg INHALATION QID PRN 14 Days 01/04/20 01/21/20 Unknown Rx #75 ml nebulizer accessories #1 each 01/04/20 01/21/20 Unknown Rx epinephrine [EpiPen 2-Gerardo] 0.3 mg IM Q10M PRN #2 each 01/05/20 01/21/20 Unknown Rx fluoxetine [Prozac] 20 mg PO DAILY 01/05/20 01/21/20 01/05/20 History prazosin 1 mg PO BEDTIME 01/05/20 01/21/20 Unknown History thiamine HCl (vitamin B1) 100 mg PO DAILY 01/05/20 01/21/20 Unknown History buprenorphine HCl 8 mg SUBLINGUAL TID 01/21/20 01/21/20 Unknown History trazodone 150 mg PO BEDTIME 01/21/20 01/21/20 Unknown History Allergies Allergy/AdvReac Type Severity Reaction Status Date / Time codeine Allergy Unknown ALGY-Hives Verified 01/05/20 17:29 hydroxyzine [From Vistaril] Allergy ADR-Itching Verified 01/05/20 17:29 PFSH NPU PFSH: Medical History (Updated 01/23/20 @ 07:08 by Lan Loyd MD) Alcohol abuse with alcohol-induced mood disorder Essential (primary) hypertension not on any chronic treatment 09/26 Family history of alpha 1 antitrypsin deficiency Fibromyalgia Generalized anxiety disorder H/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, includes meth, heroin, others, on buprenorphine Hepatitis C antibody positive in blood Hx of abscess of skin and subcutaneous tissue right arm Major depressive disorder, recurrent, moderate Nontoxic thyroid nodule Opioid abuse Polycystic ovarian syndrome polycystic ovaries not notated on CT abdomen/pelvis 01/26 Unspecified asthma, uncomplicated onset in childhood Surgical History Hx of cholecystectomy Family History Other Tuewi-0-uittkncendm deficiency Drug abuse, amphetamine type Hypertension Social History Smoking and tobacco status: current every day smoker cigarettes Packs smoked per day: 1.5 Years cigarettes smoked: 15 Quit status (tobacco): considering quitting Second hand smoke exposure: Yes Smoking risk assessment/counseling performed?: Yes Alcohol intake: current Alcohol intake frequency: 3 or more drinks per day Alcohol type: hard liquor Desire information about alcohol rehabilitation?: Yes Counseling given: No Desire information about substance/drug rehabilitation?: No Counseling given: No Other details last substance use: Has used methamphetamine, heroin, pain medications. Adopted: No Caregiver/support person: No Lives independently: Yes Household members: friend(s) Housing: Manufactured/Mobile home Marital status: Single Number of children: 2 service: No Current occupational status: employed History of recent travel: No Current gender identity: Female Female Reproductive History: Para: 2 Mental Status Exam MSE Comments: This is a morbidly obese white female in hospital scrubs with limited grooming and adequate eye contact. No abnormal movements except for psychomotor retardation. Cooperative with exam in mild distress. Speech was decreased rate and volume. Mood described as depressed, affect congruent. Thought process organized. Thought content: Patient endorsed suicidal ideation but denied homicidal ideation, there were no delusions reported or noted, she denied any auditory or visual hallucinations. Attention and concentration appeared intact and memory was mostly reliable but none were formally tested. She is alert and oriented x3. Insight and judgment are limited and impulse control is limited. Vitals/I&O/Wt Last Vital Signs Temp 97.5 F L 01/22/20 13:37 Pulse 67 01/22/20 13:37 Resp 18 01/22/20 13:37 BP 117/76 01/22/20 13:37 Pulse Ox 95 01/22/20 13:37 Weight last 48 hrs Weight 136.078 kg Data NPU : 01/21/20 15:29 01/21/20 15:29 A&P Assessment and plan (1) ETOH abuse: Status: Acute (2) Suicidal ideation: Status: Acute (3) Metabolic syndrome: Status: Chronic (4) Type 2 diabetes mellitus with hyperglycemia: Status: Acute (5) Posttraumatic stress disorder: Status: Chronic (6) Alcohol use disorder: Status: Chronic (7) H/O drug abuse: Status: Acute (8) Buprenorphine dependence: Status: Chronic (9) Hepatitis C antibody positive in blood: Status: Chronic (10) Opioid abuse: Status: Inactive Additional A&P Information This is a 29-year-old white female who presents with active alcohol use, depression and reports this office for medication wanting to be transferred to [place] but endorsing an openness to initiate treatment here. 1. Continue current medication. We will look at her Effexor dosing prior to starting. 2. Continue every 15 minute checks for safety. 3. Encourage individual, group and milieu therapy. 4. Continue CIWA protocol. 5. Encourage sober living treatments at the highest level of care to which she is willing to commit. Involuntary Hold Information 96 Hour Hold: 96 Hour Involuntary Admission: Yes 96 Hour Hold Ending Date: 01/27/20 96 Hour Hold Ending Time: 16:20 Attestations U Medical Necessity Statement*: Inpatient hospitalization is medically necessary and the clinically appropriate intervention at this time. We will monitor medications and make changes as indicated. She will be in the hospital for over 2 midnights. Likely length of stay 3 to 5 days. Coding Level of Care Code Acute Size Cutter for Bartolo Lund Diagnoses ETOH abuse F10.10 Suicidal ideation R45.851 Metabolic syndrome E88.81 Type 2 diabetes mellitus with hyperglycemia E11.65 Posttraumatic stress disorder F43.10 Alcohol use disorder H/O drug abuse F19.11 Buprenorphine dependence F11.20 Hepatitis C antibody positive in blood R76.8 Opioid abuse F11.10
[2020-01-22] MEDS: LORazepam 2 mg Tablet PO (16:07)
[2020-01-22 20:10] VITALS: BP 137/88; PULSE 66; RESP 14; TEMP 37.1; O2SAT 94
[2020-01-22 20:12] LABS: Glucose Point of Care 111 mg/dL (70-110)
[2020-01-22] MEDS: trazodone 150 mg Tablet PO (20:52)
[2020-01-22] MEDS: prazosin 1 mg Capsule PO (20:52)
[2020-01-23 06:00] VITALS: BP 186/118; PULSE 77; RESP 18; TEMP 36.5; O2SAT 96
[2020-01-23] MEDS: LORazepam 2 mg Tablet PO ×4 (06:46→21:39)
[2020-01-23] MEDS: ondansetron 4 MG Tablet PO ×3 (06:46→21:39)
--- NOTE | 2020-01-23 06:48 | PC.NURSE ---
PRN ATIVAN & ZOFRAN ADMINISTERED ATIVAN 2 MG PO PER CIWA PROTOCOL. CIWA SCORE 10. ADMINISTERED ZOFRAN 4 MG PO FOR PT C/O NAUSEA. WILL MONITOR FOR MEDICATION EFFECTIVENESS.
[2020-01-23 06:56] LABS: Glucose Point of Care 96 mg/dL (70-110)
[2020-01-23] MEDS: budesonide 0.5 mg/2 mL Neb INHALATION (07:52)
[2020-01-23 07:53] VITALS: PULSE 89; RESP 18; O2SAT 98
[2020-01-23] MEDS: fluoxetine 20 mg Capsule PO (08:45)
[2020-01-23] MEDS: metformin XR 500 MG Tablet 1000 MG PO (08:45)
[2020-01-23] MEDS: buprenorphine-naloxone 4-1 mg Film 2 EACH SUBLINGUAL ×3 (08:45→21:30)
[2020-01-23] MEDS: thiamine 100 mg Tablet PO (08:45)
[2020-01-23] MEDS: folic acid 1 mg Tablet PO (08:45)
[2020-01-23] MEDS: multivitamin therapeutic Tablet 1 TAB PO (08:45)
[2020-01-23 13:51] VITALS: BP 107/65; PULSE 82; RESP 18; TEMP 36.7
--- NOTE | 2020-01-23 15:01 | P.PN_ITS ---
Subjective NPU Subjective: Interval history: Wendy presents today reporting that things have been a little challenging as far as withdrawal and sleep but that she is feeling a little better. She reports that she is tolerating the medication well and we discussed that tomorrow when the treatment team is then she will be able to discuss follow-up and what her goals are for treatment after pathology so we can only support her and continued progress. Mental Status Exam MSE Comments: This is a morbidly obese white female in hospital scrubs with limited grooming and adequate eye contact. No abnormal movements except for psychomotor retardation. Cooperative with exam in no acute distress. Speech was decreased rate and volume. Mood described as okay but I kind of feel sick, affect congruent. Thought process organized. Thought content: Patient denied suicidal or homicidal ideation, there were no delusions reported or noted, she denied any auditory or visual hallucinations. Attention and concentration appeared intact and memory was mostly reliable but none were formally tested. She is alert and oriented x3. Insight and judgment are improving and impulse control is limited. Vitals/I&O/Wt Last Vital Signs Temp 98.2 F 01/23/20 20:07 Pulse 67 01/23/20 20:07 Resp 16 01/23/20 20:07 BP 103/63 01/23/20 20:07 Pulse Ox 92 01/23/20 20:07 Weight last 48 hrs Weight 136.078 kg Data NPU : 01/21/20 15:29 01/21/20 15:29 A&P Additional A&P Information (1) ETOH abuse: (2) Suicidal ideation: (3) Metabolic syndrome: (4) Type 2 diabetes mellitus with hyperglycemia: (5) Posttraumatic stress disorder: (6) Alcohol use disorder: (7) H/O drug abuse: (8) Buprenorphine dependence: (9) Hepatitis C antibody positive in blood: (10) Opioid abuse: This is a 29-year-old white female who presents with active alcohol use, depression and reports this office for medication wanting to be transferred to [place] but endorsing an openness to initiate treatment here. 1. Continue current medication. Start Effexor XR 37.5 mg and titrate to effect as long as the blood pressure has normalized. 2. Continue every 15 minute checks for safety. 3. Encourage individual, group and milieu therapy. 4. Continue CIWA protocol. 5. Encourage sober living treatments at the highest level of care to which she is willing to commit. Involuntary Hold Information 96 Hour Hold: 96 Hour Involuntary Admission: Yes 96 Hour Hold Ending Date: 01/27/20 96 Hour Hold Ending Time: 16:20 Attestations NPU Medical Necessity Statement*: Inpatient hospitalization is medically necessary and the clinically appropriate intervention at this time. We will monitor medications and make changes as indicated. Likely length of stay 2-4 days. Coding Level of Care Code Acute Fire Marshal for Bartolo Lund
[2020-01-23 17:21] VITALS: BP 135/84
[2020-01-23 19:52] LABS: Glucose Point of Care 88 mg/dL (70-110)
[2020-01-23 20:07] VITALS: BP 103/63; PULSE 67; RESP 16; TEMP 36.8; O2SAT 92
[2020-01-23] MEDS: trazodone 150 mg Tablet PO (21:31)
[2020-01-23] MEDS: prazosin 1 mg Capsule PO (21:31)
--- NOTE | 2020-01-23 21:35 | PC.NURSE ---
Addendum entered by Mayra Lopez RN 01/23/20 21:39: 4 mg zofran po given for nausea and ativan 2mg po for alcohol withdrawl symptoms with a ciwa of 17. will continue to monitor pt. Original Note: ciwa score of 17.
--- NOTE | 2020-01-23 23:39 | PC.NURSE ---
berlin 5..
[2020-01-24 06:00] VITALS: BP 102/69; PULSE 65; RESP 17; TEMP 36.9; O2SAT 91
[2020-01-24 06:55] LABS: Glucose Point of Care 88 mg/dL (70-110)
[2020-01-24] MEDS: buprenorphine-naloxone 4-1 mg Film 2 EACH SUBLINGUAL ×3 (08:03→20:16)
[2020-01-24] MEDS: metformin XR 500 MG Tablet 1000 MG PO (08:04)
[2020-01-24] MEDS: acetaminophen 325 mg Tablet 650 MG PO (08:04)
[2020-01-24] MEDS: venlafaxine ER (24HR) 37.5 mg Capsule PO (08:04)
[2020-01-24] MEDS: multivitamin therapeutic Tablet 1 TAB PO (08:05)
[2020-01-24] MEDS: fluoxetine 20 mg Capsule PO (08:05)
[2020-01-24] MEDS: ondansetron 4 MG Tablet PO (08:05)
[2020-01-24] MEDS: thiamine 100 mg Tablet PO (08:06)
[2020-01-24] MEDS: folic acid 1 mg Tablet PO (08:06)
--- NOTE | 2020-01-24 08:06 | PC.NURSE ---
seeking ativan pt does not appear to be anxious/agitated. voice is low and calm. pt asking for my ativan, stomach pill, tylenol. tylenol and zofran provided. no ativan given. pt told by this nurse her blood pressure was only 102/69. pt stated well then I'll just talk to the doctor.
--- NOTE | 2020-01-24 09:06 | PC.RESP ---
SMOKING CESSATION INFORMATION SENT TO PATIENT.
--- NOTE | 2020-01-24 12:16 | P.PN_ITS ---
Subjective NPU Subjective: Interval history: Wnedy continue to complain of withdrawal symptoms. In the social work team is working with her doctors in [place] in an attempt to get placement in some kind of sober living facility to avoid repeating this pattern. She is tolerating the Effexor XR that we restarted and will continue to titrate the dose. Mental Status Exam MSE Comments: This is a morbidly obese white female in hospital scrubs with limited grooming and adequate eye contact. No abnormal movements except for psychomotor retardation. Cooperative with exam in mild distress. Speech was decreased rate and volume. Mood described as still feeling bad, affect congruent. Thought process organized. Thought content: Patient denied suicidal or homicidal ideation, there were no delusions reported or noted, she denied any auditory or visual hallucinations. Attention and concentration appeared intact and memory was mostly reliable but none were formally tested. She is alert and oriented x3. Insight and judgment are improving and impulse control is limited. Vitals/I&O/Wt Last Vital Signs Temp 97.7 F 01/24/20 20:26 Pulse 76 01/24/20 21:27 Resp 16 01/24/20 21:27 BP 141/94 01/24/20 20:26 Pulse Ox 94 01/24/20 21:27 01/24/20 01/24/20 01/25/20 14:59 22:59 06:59 Intake Total 240 / 240 Balance 240 / 240 Weight last 48 hrs Weight 136.078 kg Data NPU : 01/21/20 15:29 01/21/20 15:29 A&P Additional A&P Information (1) ETOH abuse: (2) Suicidal ideation: (3) Metabolic syndrome: (4) Type 2 diabetes mellitus with hyperglycemia: (5) Posttraumatic stress disorder: (6) Alcohol use disorder: (7) H/O drug abuse: (8) Buprenorphine dependence: (9) Hepatitis C antibody positive in blood: (10) Opioid abuse: This is a 29-year-old white female who presents with active alcohol use, de pression and reports this office for medication wanting to be transferred to [place] but endorsing an openness to initiate treatment here. 1. Continue current medication. Increase Effexor XR to 75 mg p.o. every morning. 2. Continue every 15 minute checks for safety. 3. Encourage individual, group and milieu therapy. 4. Continue CIWA protocol. 5. Encourage sober living treatments at the highest level of care to which she is willing to commit. Involuntary Hold Information 96 Hour Hold: 96 Hour Involuntary Admission: Yes 96 Hour Hold Ending Date: 01/27/20 96 Hour Hold Ending Time: 16:20 Attestations NPU Medical Necessity Statement*: Inpatient hospitalization is medically necessary and the clinically appropriate intervention at this time. We will monitor medications and make changes as indicated. Likely length of stay 1-3 days. Coding Level of Care Code Acute Buckle Sewer Machine for Bartolo Lund
[2020-01-24 14:00] VITALS: BP 129/77; PULSE 62; RESP 16; TEMP 36.3; O2SAT 92
[2020-01-24 16:22] LABS: Glucose Point of Care 111 mg/dL (70-110)
[2020-01-24 19:38] LABS: Glucose Point of Care 108 mg/dL (70-110)
[2020-01-24] MEDS: LORazepam 2 mg Tablet PO (20:16)
[2020-01-24] MEDS: prazosin 1 mg Capsule PO (20:16)
[2020-01-24] MEDS: trazodone 150 mg Tablet PO (20:16)
[2020-01-24 20:26] VITALS: BP 141/94; PULSE 65; RESP 16; TEMP 36.5; O2SAT 94
[2020-01-24 21:27] VITALS: PULSE 76; RESP 16; O2SAT 94
[2020-01-25 06:00] VITALS: BP 117/72; PULSE 66; RESP 15; TEMP 36.7; O2SAT 91
[2020-01-25 06:54] LABS: Glucose Point of Care 84 mg/dL (70-110)
[2020-01-25] MEDS: buprenorphine-naloxone 4-1 mg Film 2 EACH SUBLINGUAL ×3 (07:52→20:22)
[2020-01-25] MEDS: metformin XR 500 MG Tablet 1000 MG PO (07:52)
[2020-01-25] MEDS: fluoxetine 20 mg Capsule PO (07:53)
[2020-01-25] MEDS: venlafaxine ER (24HR) 75 mg Capsule PO (07:53)
[2020-01-25] MEDS: multivitamin therapeutic Tablet 1 TAB PO (07:53)
[2020-01-25] MEDS: thiamine 100 mg Tablet PO (07:53)
[2020-01-25] MEDS: folic acid 1 mg Tablet PO (07:53)
[2020-01-25 14:00] VITALS: BP 161/113; PULSE 62; RESP 18; TEMP 36.6; O2SAT 96
--- NOTE | 2020-01-25 16:08 | PM.NPN ---
Subjective NPU Subjective: Interval history: Wendy continues to demonstrate slow improvement. Especially in the area of her withdrawal. She and social work team working hard on possible plan for discharge tomorrow to [place] as a likelihood. She reports that she is eating better and sleeping likely too much. She is tolerating the titration of the Effexor XR. Mental Status Exam MSE Comments: This is a morbidly obese white female in hospital scrubs with limited grooming and adequate eye contact. No abnormal movements except for psychomotor retardation. Cooperative with exam in no acute distress. Speech was decreased rate and volume. Mood described as feeling a tiny bit better, affect congruent. Thought process organized. Thought content: Patient denied suicidal or homicidal ideation, there were no delusions reported or noted, she denied any auditory or visual hallucinations. Attention and concentration appeared intact and memory was mostly reliable but none were formally tested. She is alert and oriented x3. Insight and judgment are improving and impulse control is limited. Vitals/I&O/Wt Last Vital Signs Temp 98.3 F 01/25/20 20:41 Pulse 98 01/25/20 21:56 Resp 18 01/25/20 21:56 BP 154/84 01/25/20 20:41 Pulse Ox 98 01/25/20 21:56 Data NPU : 01/21/20 15:29 01/21/20 15:29 A&P Additional A&P Information (1) ETOH abuse: (2) Suicidal ideation: (3) Metabolic syndrome: (4) Type 2 diabetes mellitus with hyperglycemia: (5) Posttraumatic stress disorder: (6) Alcohol use disorder: (7) H/O drug abuse: (8) Buprenorphine dependence: (9) Hepatitis C antibody positive in blood: (10) Opioid abuse: This is a 29-year-old white female who presents with active alcohol use, depression and reports this office for medication wanting to be transferred to [place] but endorsing an openness to initiate treatment here. 1. Continue current medication. 2. Continue every 15 minute checks for safety. 3. Encourage individual, group and milieu therapy. 4. Continue CIWA protocol. 5. Encourage sober living treatments at the highest level of care to which she is willing to commit. Involuntary Hold Information 96 Hour Hold: 96 Hour Involuntary Admission: Yes 96 Hour Hold Ending Date: 01/27/20 96 Hour Hold Ending Time: 16:20 Attestations NPU Medical Necessity Statement*: Inpatient hospitalization is medically necessary and the clinically appropriate intervention at this time. We will monitor medications and make changes as indicated. Likely length of stay 1-2 days. Tentative discharge tomorrow. Coding Level of Care Code Acute Wire Mesh Filter Fabricator for Bartolo Lund
[2020-01-25 16:32] LABS: Glucose Point of Care 146 mg/dL (70-110)
[2020-01-25] MEDS: ondansetron 4 MG Tablet PO (16:45)
--- NOTE | 2020-01-25 16:45 | PC.NURSE ---
PRN ZOFRAN 4 MG GIVEN PO PER PT C/O NAUSEA. WILL CONT TO MONITOR
[2020-01-25 19:59] VITALS: PULSE 110; RESP 18; O2SAT 97
[2020-01-25 20:04] LABS: Glucose Point of Care 89 mg/dL (70-110)
[2020-01-25] MEDS: trazodone 150 mg Tablet PO (20:22)
[2020-01-25] MEDS: LORazepam 1 mg Tablet PO (20:22)
[2020-01-25] MEDS: prazosin 1 mg Capsule PO (20:22)
[2020-01-25 20:41] VITALS: BP 154/84; PULSE 75; RESP 17; TEMP 36.8; O2SAT 91
[2020-01-25 21:49] VITALS: PULSE 98; RESP 18; O2SAT 97
[2020-01-25 21:56] VITALS: PULSE 98; RESP 18; O2SAT 98
[2020-01-26 06:00] VITALS: BP 134/86; PULSE 64; RESP 18; TEMP 36.7; O2SAT 93
[2020-01-26 06:29] LABS: Glucose Point of Care 103 mg/dL (70-110)
[2020-01-26] MEDS: buprenorphine-naloxone 4-1 mg Film 2 EACH SUBLINGUAL (08:15)
[2020-01-26] MEDS: metformin XR 500 MG Tablet 1000 MG PO (08:15)
[2020-01-26] MEDS: fluoxetine 20 mg Capsule PO (08:15)
[2020-01-26] MEDS: multivitamin therapeutic Tablet 1 TAB PO (08:16)
[2020-01-26] MEDS: venlafaxine ER (24HR) 75 mg Capsule PO (08:16)
[2020-01-26] MEDS: thiamine 100 mg Tablet PO (08:16)
[2020-01-26] MEDS: folic acid 1 mg Tablet PO (08:16)
[2020-01-26] MEDS: ondansetron 4 MG Tablet PO (08:25)
--- NOTE | 2020-01-26 08:25 | PC.NURSE ---
PRN ZOFRAN 4 MG GIVEN PO PER PT C/O STATED NAUSEA/VOMITING. STAFF DID NOT WITNESS PT GETTING SICK. WHEN STAFF ENTERED ROOM TO GIVE SCHEDULED MEDICATIONS, PT IMMEDIATELY ASKS DID HE ORDER ME MORE ATIVAN? PT GOES ON TO SAY I ONLY FEEL BETTER WHEN I HAVE ATIVAN. PT TOLD THIS NURSE AND FITNESS SPECIALIST THAT SHE HAS BEEN THROWING UP ALL NIGHT. THIS NURSE CHECKED MEDICATION RECORD, NO PRN ZOFRAN WAS GIVEN BY NETWORKS SOFTWARE CONSULTANT NURSE. WHEN PT WAS ASKED IF SHE MENTIONED HER BEING SICK ALL NIGHT TO THE NETWORKS SOFTWARE CONSULTANT NURSES SHE REPLIED NO I DIDN'T WANT TO GET UP.
[2020-01-26 09:37] VITALS: BP 134/86; PULSE 64; RESP 18; TEMP 36.7; O2SAT 93
--- NOTE | 2020-01-26 09:49 | PM.NDC ---
Diagnoses at Discharge Discharge Diagnosis (1) ETOH abuse: Status: Acute (2) Suicidal ideation: Status: Resolved (3) Metabolic syndrome: Status: Chronic (4) Type 2 diabetes mellitus with hyperglycemia: Status: Acute (5) Posttraumatic stress disorder: Status: Chronic (6) Alcohol use disorder: Status: Chronic (7) H/O drug abuse: Status: Acute Permanent problem details: with history of IVDA, includes meth, heroin, others, on buprenorphine (8) Buprenorphine dependence: Status: Chronic (9) Hepatitis C antibody positive in blood: Status: Chronic (10) Opioid abuse: Status: Inactive Reason for Visit Reason for Visit: SI/ ETOH Brief History: History of Present Illness Wendy De La Cruz is a 29 year old female who presented to the emergency department with the following report: Chief Complaint: Psychiatric Symptoms Stated Complaint: SI/ ETOH Time Seen by Provider: 01/21/20 15:09 Source: patient and EMS Mode of arrival: EMS Limitations: no limitations History of Present Illness: HPI Narrative: 29-year-old female who is here with EMS. She is a chronic alcoholic states she has been depressed and having suicidal thoughts. Patient current he denies any active suicidal plans. She is intoxicated. She denies any worsening or improving factors. Patient is very argumentative and is trying to go outside to smoke. Associated symptoms: Reports depression and suicidal ideation. She was admitted to the neuropsychiatric unit for definitive treatment of those issues. She presents today reporting that she feels like her drinking has caused her significant problems and has not had a test to her Effexor. We discussed the risk benefits and alternatives of me identifying what her previous dose was and then getting her back on the medication. She believes that her insurance is going to kick in so she should not have a problem in the future. She also endorses that she has been drinking/relapsed and that she is having some withdrawal issues. We discussed her last inpatient evaluation which was on 11/13/2019 and she denies any substantive changes since then and so an excerpt is included below. She reports that her p.o. or someone was really feeling like she would benefit from getting treatment in [place] and so she was very adamant that she wanted to be transferred but we discussed the fact that we do not transfer laterally and that ambulance is are basically required to go to the closest facility that can manage the situation. Per her 11/13/2019 inpatient psychiatric eval: History of Present Illness Chief complaint: My medications really are not working for me. They do not give me any energy. Wendy De La Cruz is a 29 year old female who now presents for the sixth time this calendar year for admission to the psychiatric unit if alcohol poisoning. She presented the emergency room with a blood alcohol level of 404. She was discharged from this unit 35 days ago. She apparently has not been doing much of anything other than ingesting alcohol and taking her Suboxone. She did not report to [facility] because she says she cannot afford it. She is not receiving any out patient therapy other than Suboxone from the [facility] who she says gives it to her for free. She continues to state that going to rehab is not something she is interested in. Her goal at this time is to sober up and feel better. She denies suicidal or homicidal ideation. ER physician HPI narrative: 29-year-old massively obese female who presents self-admittedly extremely intoxicated after drinking a lot of alcohol. Patient admits to drinking a lot of alcohol on a daily basis. She had called the emergency room earlier today stating she wanted to be seen we advised her to either come to the emergency room by private vehicle or call an ambulance if needed we have and offered to call an ambulance for her but she would not give us her location. Eventually she did call an ambulance herself was brought in by EMS and in route she became somewhat combative and was given 250 mg of ketamine. She is lethargic and pleasantly hallucinating on arrival after the combination of alcohol and ketamine. She has several bruises of varying ages on her extremities and an abrasion on her right anterior tibia MD complaint: alcohol intoxication Laboratory Tests 09/04/19 09/08/19 11/12/19 20:54 14:13 15:41 AST 170 H ALT 116 H Alkaline Phosphatase 104 Urine Opiates Screen Ur Barbiturates Screen Ur Phencyclidine Scrn Ur Amphetamines Screen U Benzodiazepines Scrn Urine Cocaine Screen U Marijuana (THC) Screen Ethyl Alcohol 387 H* 393 H* 404 H* 11/12/19 11/12/19 16:07 19:57 AST ALT Alkaline Phosphatase Urine Opiates Screen Negative Ur Barbiturates Screen Negative Ur Phencyclidine Scrn Negative Ur Amphetamines Screen Negative U Benzodiazepines Scrn Negative Urine Cocaine Screen Negative U Marijuana (THC) Screen Positive H Ethyl Alcohol 255 H Mental health history: Unchanged from 10/03/2019 Social history: Unchanged from a 03 October 2019 Meds NPU Home Medications Medication Instructions Recorded Confirmed Last Taken Type budesonide 1 inh INHALATION DAILY 30 Days #1 09/21/19 11/12/19 Unknown Rx each buprenorphine-naloxone 1 film BUCCAL TID 10/02/19 10/02/19 11/12/19 History fluoxetine 20 mg PO DAILY 30 Days #30 cap 10/07/19 Unknown Rx trazodone 150 mg PO BEDTIME 30 Days #30 tab 10/07/19 11/11/19 Rx Allergies Allergy/AdvReac Type Severity Reaction Status Date / Time codeine Allergy Unknown ALGY-Hives Verified 11/12/19 14:51 PFSH NPU PFSH: Medical History Alcohol abuse with alcohol-induced mood disorder Patient currently detoxed. Allergic rhinitis, unspecified Essential (primary) hypertension not on any chronic treatment 09/26 Family history of alpha 1 antitrypsin deficiency Fibromyalgia Generalized anxiety disorder H/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, includes meth, heroin, others, on buprenorphine Hepatitis C antibody positive in blood hepatomegaly, splenomegaly, low platelets transiently noted -09/26, no treatment Hx of abscess of skin and subcutaneous tissue right arm Major depressive disorder, recurrent, moderate Nontoxic thyroid nodule Polycystic ovarian syndrome polycystic ovaries not notated on CT abdomen/pelvis 01/26 Unspecified asthma, uncomplicated onset in childhood Surgical History Hx of cholecystectomy Family History Other Hjklw-[id number]-ldckwzyvxae deficiency Drug abuse, amphetamine type Hypertension Social History Smoking and tobacco status: current every day smoker cigarettes Packs smoked per day: 1.5 Years cigarettes smoked: 15 Quit status (tobacco): considering quitting Second hand smoke exposure: Yes Smoking risk assessment/counseling performed?: Yes Alcohol intake: current Alcohol intake frequency: 0-2 Drinks per Day Alcohol type: hard liquor Desire information about alcohol rehabilitation?: Yes Counseling given: No Desire information about substance/drug rehabilitation?: No Counseling given: No Adopted: No Caregiver/support person: No Lives independently: Yes Household members: friend(s) Housing: Manufactured/Mobile home Marital status: Single Number of children: 2 service: No Current occupational status: employed History of recent travel: No Current gender identity: Female Hospital Course Hospital Course Wendy presented to the emergency department reporting depression anxiety recent relapse and a desire to be admitted but to [place] reportedly per her p.o. Along with some suicidal thinking. She was admitted to the neuropsychiatric unit for definitive treatment of those issues. On the unit she slowly acclimated to the individual, group and milieu therapies provided. She had been off of her Effexor XR and the Effexor was restarted and titrated to 75 mg. Her home medications were continued and she showed a positive response to those changes. We were able to assist her in connecting with sober living and outpatient resources and she was able to contract for safety prior to discharge. During hospitalization, she never studies which were within normal limits except for few outliers. Additionally she had a general medical evaluation which was also within normal limits and revealed no new acute processes. Discharge summary: At the time of discharge she was absent lethality or psychosis. Her mood and anxiety were well managed. He endorsed a plan to avoid all drugs of abuse and follow-up with the recommendations of the treatment team for aftercare. She was evaluated and deemed to be absent current lethality and that she will be committed from an inpatient hospitalization, so she was discharged. Involuntary Hold Information 96 Hour Hold: 96 Hour Involuntary Admission: Yes 96 Hour Hold Ending Date: 01/27/20 96 Hour Hold Ending Time: 16:20 Mental Status Exam MSE Comments: This is a morbidly obese white female in hospital scrubs with limited grooming and adequate eye contact. No abnormal movements except resolving mild psychomotor retardation. Cooperative with exam in no acute distress. Speech was more normal rate and volume. Mood described as better, affect congruent. Thought process organized. Thought content: Patient denied suicidal or homicidal ideation, there were no delusions reported or noted, she denied any auditory or visual hallucinations. Attention and concentration appeared intact and memory was mostly reliable but none were formally tested. She is alert and oriented x3. Insight and judgment are improving and impulse control is limited. Discharge Data Data Completed and Pending: Labs from last 24 hours 01/26/20 01/25/20 01/25/20 06:26 20:02 16:25 POC Glucose 103 89 146 Vitals: Last Vital Signs Temp 98.0 F 01/26/20 09:37 Pulse 64 01/26/20 09:37 Resp 18 01/26/20 09:37 BP 134/86 01/26/20 09:37 Pulse Ox 93 01/26/20 09:37 Discharge Plan Discharge Patient Disposition: Home Condition: Stable Prescriptions: New Vitamin B-1 (mononitrate) 100 mg Tablet 100 mg PO DAILY 30 Days Qty: 30 RF: 1 venlafaxine 75 mg Capsule,Extended Release 24hr 75 mg PO DAILY 30 Days Qty: 30 RF: 1 folic acid 1 mg Tablet 1 mg PO DAILY 30 Days Qty: 30 RF: 1 Thera 400 mcg Tablet 1 tab PO DAILY 30 Days Qty: 30 RF: 1 Continued (DME) nebulizer accessories Kit See Rx Instructions .ROUTE .MEDSUPPLY Qty: 1 RF: 0 buprenorphine HCl 8 mg tablet, sublingual 8 mg SUBLINGUAL TID RF: 0 albuterol sulfate 2.5 mg /3 mL (0.083 %) solution for nebulization 2.5 mg INHALATION QID PRN (Reason: shortness of breath or wheezing) 14 Days Qty: 75 RF: 2 prazosin 1 mg capsule 1 mg PO BEDTIME 30 Days Qty: 30 RF: 1 trazodone 150 mg Tablet 150 mg PO BEDTIME 30 Days Qty: 30 RF: 1 EpiPen 2-Gerardo 0.3 mg/0.3 mL auto-injector 0.3 mg IM Q10M PRN (Reason: anaphylaxis) 30 Days Qty: 2 RF: 1 Prozac 20 mg Capsule 20 mg PO DAILY 30 Days Qty: 30 RF: 1 metformin 500 mg tablet extended release 24hr 1,000 mg PO DAILY 30 Days Qty: 60 RF: 1 budesonide 180 mcg/actuation aerosol powdr breath activated 1 inh INHALATION DAILY 30 Days Qty: 1 RF: 3 Discontinued thiamine HCl (vitamin B1) 100 mg tablet 100 mg PO DAILY RF: 0 magnesium citrate Solution 296 ml PO BID PRN (Reason: constipation) Qty: 296 RF: 2 Discharge Orders: Discharge Order (Routine); Ordered 01/26/20 Ordered By: Lan Loyd Referrals: Ej Copeland [Other] (for detox in [place] ) David Villar, [employer] [Primary Care Provider] - Discharge Diet: Diabetic Discharge Activity: Resume usual activity Activity Restrictions/Additional Instructions: you said that you need a ride to [place], [place] amd that you have appointment with Dr. Sepulveda at 1:00. Do go to your appointment. Discharge Attestations NPU Time Spent in Discharge Care*: less than 30 min Specific Discharge Activities: Specific discharge activities: educating patient, discussing with manager of case/social workers/dc planners, documenting/other paperwork and evaluating patient/reviewing data Status at Discharge: Cognitive status at discharge: cognitively intact, Behavioral status at discharge: cooperative, Coding Level of Care Code Acute Lens Coating Technician for Chg Fwd Diagnoses ETOH abuse F10.10 Suicidal ideation R45.851 Metabolic syndrome E88.81 Type 2 diabetes mellitus with hyperglycemia E11.65 Posttraumatic stress disorder F43.10 Alcohol use disorder H/O drug abuse F19.11 Buprenorphine dependence F11.20 Hepatitis C antibody positive in blood R76.8 Opioid abuse F11.10
== END 2020-01-26 10:15 | disposition home or self-care (01) | DRG 897 ==
LOC: ER 16:56 → NP 18:10
PROVIDERS: Admitting Provider Psychiatry & Neurology Psychiatry; Emergency Provider Emergency Medicine; PCP Nurse Practitioner; Visit Provider Psychiatry & Neurology Psychiatry
DX: F10.229 Alcohol dependence with intoxication, unspecified (principal); R45.851 Suicidal ideations; Z68.43 Body mass index [BMI] 50.0-59.9, adult; F33.1 Major depressive disorder, recurrent, moderate; Y90.8 Blood alcohol level of 240 mg/100 ml or more; E66.01 Morbid (severe) obesity due to excess calories; F10.24 Alcohol dependence with alcohol-induced mood disorder; I10 Essential (primary) hypertension; M79.7 Fibromyalgia; Z83.2 Family history of diseases of the blood and blood-forming organs and certain disorders involving the immune mechanism; F41.1 Generalized anxiety disorder; B18.2 Chronic viral hepatitis C; R16.2 Hepatomegaly with splenomegaly, not elsewhere classified; E04.1 Nontoxic single thyroid nodule; E28.2 Polycystic ovarian syndrome; J45.909 Unspecified asthma, uncomplicated; F15.11 Other stimulant abuse, in remission; F17.210 Nicotine dependence, cigarettes, uncomplicated; Z79.84 Long term (current) use of oral hypoglycemic drugs; Z79.51 Long term (current) use of inhaled steroids; F11.10 Opioid abuse, uncomplicated; F43.12 Post-traumatic stress disorder, chronic; E11.65 Type 2 diabetes mellitus with hyperglycemia; E88.81 Metabolic syndrome and other insulin resistance
CPT/HCPCS: 12345; 36416; 80053; 80306; 80307; 81025; 82962; 85025; 94640; 99284; J0573; J2060; J3486; J7611; J7626; Q0162

== ENCOUNTER 2020-02-14 21:07 | Inpatient (IN) | payer MEDICAID, SELFPAY ==
[2020-02-14] VITALS (19 sets, daily range): BP systolic 123–124; BP diastolic 89–95; PULSE 101; RESP 16; O2SAT 84–100; BMI 54.9
--- NOTE | 2020-02-14 21:13 | ECG_ITS ---
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 [id number]
[2020-02-14] MEDS: diphenhydrAMINE 50 mg/mL SDV 1mL 25 MG IM (21:21)
[2020-02-14] MEDS: haloperidol inj 5 mg/mL INJ 1 mL IM ×2 (21:21→22:48)
--- NOTE | 2020-02-14 21:28 | W.ED.ALCOHOL ---
HPI - Alcohol General: Chief Complaint: Alcohol Stated Complaint: ETOH Time Seen by Provider: 02/14/20 21:13 Source: patient and EMS Mode of arrival: EMS Limitations: altered mental status History of Present Illness: HPI narrative: Wendy is a 29-year-old female brought in by EMS with report of intoxication, combativeness and vague suicidal threats. EMS was dispatched for intoxication and upon their arrival the patient was still drinking and has had at least 1/5 of vodka today or more. Patient made a comment to EMS that she has been off of her medicine for 3 to 4 days now, Effexor specifically. She states that she cannot afford this medicine anymore and without it she may as well just to kill herself . Here I cannot get the patient to cooperate for any history. The patient is agitated, combative and is repeatedly inhibiting her care and combative. Review of Systems General: Reports: ROS unobtainable due to mental status PFS ED PFSH: Medical History Alcohol abuse with alcohol-induced mood disorder Essential (primary) hypertension not on any chronic treatment 09/26 Family history of alpha 1 antitrypsin deficiency Fibromyalgia Generalized anxiety disorder H/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, includes meth, heroin, others, on buprenorphine Hepatitis C antibody positive in blood Hx of abscess of skin and subcutaneous tissue right arm Major depressive disorder, recurrent, moderate Nontoxic thyroid nodule Opioid abuse Polycystic ovarian syndrome polycystic ovaries not notated on CT abdomen/pelvis 01/26 Unspecified asthma, uncomplicated onset in childhood Surgical History Hx of cholecystectomy Family History Other [id number] deficiency Drug abuse, amphetamine type Hypertension Social History Smoking and tobacco status: current every day smoker cigarettes Packs smoked per day: 1.5 Years cigarettes smoked: 15 Quit status (tobacco): considering quitting Second hand smoke exposure: Yes Smoking risk assessment/counseling performed?: Yes Alcohol intake: current Alcohol intake frequency: 3 or more drinks per day Alcohol type: hard liquor Desire information about alcohol rehabilitation?: Yes Counseling given: No Desire information about substance/drug rehabilitation?: No Counseling given: No Other details last substance use: Has used methamphetamine, heroin, pain medications. Adopted: No Caregiver/support person: No Lives independently: Yes Household members: friend(s) Housing: Manufactured/Mobile home Marital status: Single Number of children: 2 service: No Current occupational status: employed History of recent travel: No Current gender identity: Female Female Reproductive History: Date of last menstrual period: 12/29/19 Para: 2 Physical Exam Const: COMMON NORMALS: alert GENERAL APPEARANCE: anxious, combative and odor of alcohol detected HENMT: COMMON NORMALS: normocephalic, atraumatic, external ears normal, EAC's normal and Normal external nose present HEAD & SCALP: normal to inspection, normocephalic and atraumatic FACE & SINUS: normal facial exam and face symmetric NOSE: Normal external nose present and Normal nares present EXTERNAL EAR: Yes external ears normal EXTERNAL AUDITORY CANAL: EAC's normal MOUTH: Normal oral and palatal mucosa present, lip normal and tongue normal Eye: COMMON NORMALS: Equal, round and reactive pupils present and conjunctivae normal GENERAL EYE: appearance normal, both eyes and all related structures ALIGNMENT: Yes alignment normal PERIORBITAL: periorbital findings normal EYELID: eyelids normal CONJUNCTIVA: Yes conjunctivae normal SCLERA: sclerae normal PUPIL: Yes Equal, round and reactive pupils present Neck/C-Spine: COMMON NORMALS: full ROM, no lymphadenopathy, supple, no meningeal signs and no JVD GENERAL: Yes normal visual inspection and Yes trachea midline Chest: COMMONS NORMALS: normal inspection of the chest and normal palpation of entire chest wall Resp: COMMON NORMALS: normal respiratory effort, No retractions, No use of accessory muscles and clear to auscultation bilaterally EFFORT & INSPECTION: Yes able to speak in complete sentences and Yes symmetric chest movement AUSCULTATION: clear to auscultation bilaterally, no crackles, no rales, no rhonchi and no wheezes Cardio: COMMON NORMALS: no JVD, regular rate, regular rhythm, S1 normal heart sound present and S2 normal heart sound present RATE: regular rate RHYTHM: regular rhythm HEART SOUNDS: S1 normal heart sound present, S2 normal heart sound present, no click, no gallops, no murmurs and no rubs GI: COMMON NORMALS: Soft to palpation and No hepatosplenomegaly present PALPATION: Yes Soft to palpation, No Tenderness to palpation present (GI), No Guarding due to palpation present (GI), No Rigid due to palpation, Yes No hepatosplenomegaly present, No Hernia present, No Palpable mass present and No Pulsatile mass present : COMMON NORMALS: Yes no CVA tenderness BLADDER/KIDNEY EXAM: Yes no CVA tenderness EXTERNAL FEMALE EXAM: No Hernia present Back/Pelvis: COMMON NORMALS: no CVA tenderness, thoracic and lumbar spine normal to inspection, no thoracic nor lumbar tenderness and thoraco-lumbar ROM normal Extremity: COMMON NORMALS: normal to inspection, full ROM, capillary refill normal, no joint enlargement, no clubbing, cyanosis or edema and no calf tenderness Neuro: COMMON NORMALS: CN's II-XII intact bilaterally, moves all extremities, no focal motor deficits and no sensory deficits noted SENSORIUM/ORIENTATION: Yes alert MENINGEAL SIGNS: Yes no meningeal signs Psych: APPEARANCE: Yes unkempt ATTITUDE: Yes uncooperative, Yes Belligerent attititude/behavior present, Yes agitated and Yes aggressive SPEECH: Yes rapid and Yes loud MOOD & AFFECT: Yes irritable THOUGHT PROCESS: Flight of ideas present and Illogical thought process present THOUGHT CONTENT: Yes Suicidality present INSIGHT: Poor insight present (Psych) JUDGEMENT: Poor judgement present (Psych) Skin: COMMON NORMALS: no rashes or lesions noted, turgor normal, no jaundice, no petechiae and no mottling GENERAL SKIN EXAM: no rashes or lesions noted and turgor normal Course ED course: 2131 -patient will be given a dose of Haldol as she is agitated and combative. This is likely secondary to alcohol but presently she presents a danger to herself and others by her behavior and by delaying her evaluation. Patient will be placed under 96-hour hold. 2230 -patient is still agitated and combative and still necessitates restraints at this time. 0030 -nursing reports the patient is still agitated and combative and not cooperative. Still threatening. 0130 - Pt. resting but if stimulated she becomes agitated, combative. We will slow down her potassium to help with any agitation. We will continue to try to remove her restraints as possible but at this time the patient still poses a threat to us and herself. 0230 -patient still agitated and combative when aroused. At rest she is somnolent. We will continue to try to monitor to get her out of the restraints soon as possible. 0330 -patient has been out of restraints for 30 minutes and is stable. She is much more calm and cooperative. She is eating at this time. Vital Signs: Vital signs: Vital Signs Pulse Rate 100 02/15/20 02:10 Respiratory Rate 16 02/14/20 21:13 Blood Pressure 123/89 02/15/20 03:40 Pulse Oximetry 92 02/15/20 03:40 MDM - Alcohol MDM Narrative: Medical decision making narrative: The case was reviewed with Dr. Loyd who agrees to accept the patient to the neuropsychiatric unit. Lab Data: Attestation: I reviewed the patient's lab results. Labs: Lab Results 02/14/20 02/14/20 02/14/20 Range/Units 23:47 23:47 23:47 WBC 6.5 (4.0-10.0) 10^3/ uL RBC 4.71 (4.1-5.3) 10^6/u L Hgb 15.2 (11.5-15.3) g/dL Hct 46.7 (37.0-47.0) % MCV 99.2 H (81-99) fL MCH 32.3 (28.0-34.0) pg MCHC 32.5 (30.0-36.0) g/dL RDW 14.5 (12.1-15.1) % Plt Count 206 (130-400) 10^3/c mm MPV 9.2 (7.4-10.4) fL Neut % (Auto) 45.6 % Lymph % (Auto) 44.5 % [place] % (Auto) 3.5 % Eos % (Auto) 5.8 % Baso % (Auto) 0.3 % Neut # (Auto) 2.98 (1.8-7.7) 10^3/u L Lymph # (Auto) 2.9 (0.8-4.8) 10^3/u L [place] # (Auto) 0.2 (0.2-0.9) 10^3/u L Eos # (Auto) 0.4 (0.0-0.8) 10^3/u L Baso # (Auto) 0.0 (0.0-0.1) 10^3/u L Nucleated RBC % (a uto) 0 % Nucleated RBCs # 0.0 /100WBC PT 14.00 (12.1-14.9) SECO NDS INR 1.05 (0.8-1.2) Sodium 148 H (136-145) mmol/L Potassium 2.9 L (3.5-5.1) mmol/L Chloride 108 H (98-107) mmol/L Carbon Dioxide 27 (22-29) mmol/L Anion Gap 15.9 (5-19) BUN 4 L (6-20) mg/dL Creatinine 0.8 (0.5-0.9) mg/dL GFR Calculation 84.2 L (90-130) mL/min Glucose 101 (65-115) mg/dL Calculated Osmolal ity 303 H (285-295) mOsm/k g Calcium 8.5 (8.5-10.5) mg/dL Magnesium (1.7-2.3) mg/dL Total Bilirubin 0.3 (0.15-1.2) mg/dL AST 51 H (0-32) U/L ALT 41 H (0-33) U/L Alkaline Phosphata se 71 (35-105) IU/L Total Protein 7.1 (6.6-8.7) g/dL Albumin 3.7 (3.5-5.2) g/dL Globulin 3.4 (1.3-4.6) g/dL TSH 1.29 (0.27-4.20) uIU/ mL Urine Color (Yellow) Urine Appearance (CLEAR) Urine pH (5-7) Ur Specific Gravit y (1.005-1.030) Urine Protein (Negative) Urine Glucose (UA) (Normal) Urine Ketones (Negative) Urine Blood (Negative) Urine Nitrate (Negative) Urine Bilirubin (Negative) Urine Urobilinogen (Negative) mg/dL Ur Leukocyte Louisa ase (Negative) Urine RBC (0-2) /hpf Urine WBC (0-5) /hpf Ur Squamous Epith Cells (0-5) /hpf Amorphous Sediment Urine Bacteria (NONE) /hpf Salicylates 0.5 L (3-10) mg/dL Urine Opiates Scre en (Negative) ng/mL Acetaminophen < 5.0 L (10-30) ug/mL Ur Barbiturates Sc reen (Negative) ng/mL Ur Phencyclidine S crn (Negative) ng/mL Ur Amphetamines Sc reen (Negative) ng/mL U Benzodiazepines Scrn (Negative) ng/mL Urine Cocaine Scre en (Negative) ng/mL U Marijuana (THC) Screen (Negative) ng/mL Ethyl Alcohol 431 H* (0-10) mg/dL 02/15/20 02/15/20 02/15/20 Range/Units 00:00 00:00 00:25 WBC (4.0-10.0) 10^3/ uL RBC (4.1-5.3) 10^6/u L Hgb (11.5-15.3) g/dL Hct (37.0-47.0) % MCV (81-99) fL MCH (28.0-34.0) pg MCHC (30.0-36.0) g/dL RDW (12.1-15.1) % Plt Count (130-400) 10^3/c mm MPV (7.4-10.4) fL Neut % (Auto) % Lymph % (Auto) % [place] % (Auto) % Eos % (Auto) % Baso % (Auto) % Neut # (Auto) (1.8-7.7) 10^3/u L Lymph # (Auto) (0.8-4.8) 10^3/u L [place] # (Auto) (0.2-0.9) 10^3/u L Eos # (Auto) (0.0-0.8) 10^3/u L Baso # (Auto) (0.0-0.1) 10^3/u L Nucleated RBC % (a uto) % Nucleated RBCs # /100WBC PT (12.1-14.9) SECO NDS INR (0.8-1.2) Sodium (136-145) mmol/L Potassium (3.5-5.1) mmol/L Chloride (98-107) mmol/L Carbon Dioxide (22-29) mmol/L Anion Gap (5-19) BUN (6-20) mg/dL Creatinine (0.5-0.9) mg/dL GFR Calculation (90-130) mL/min Glucose (65-115) mg/dL Calculated Osmolal ity (285-295) mOsm/k g Calcium (8.5-10.5) mg/dL Magnesium 1.9 (1.7-2.3) mg/dL Total Bilirubin (0.15-1.2) mg/dL AST (0-32) U/L ALT (0-33) U/L Alkaline Phosphata se (35-105) IU/L Total Protein (6.6-8.7) g/dL Albumin (3.5-5.2) g/dL Globulin (1.3-4.6) g/dL TSH (0.27-4.20) uIU/ mL Urine Color Yellow (Yellow) Urine Appearance Clear (CLEAR) Urine pH 6.5 (5-7) Ur Specific Gravit y 1.000 L (1.005-1.030) Urine Protein Neg (Negative) Urine Glucose (UA) Norm (Normal) Urine Ketones Negative (Negative) Urine Blood 3+ H (Negative) Urine Nitrate Negative (Negative) Urine Bilirubin Neg (Negative) Urine Urobilinogen Norm (Negative) mg/dL Ur Leukocyte Louisa ase Negative (Negative) Urine RBC None (0-2) /hpf Urine WBC None (0-5) /hpf Ur Squamous Epith Cells None (0-5) /hpf Amorphous Sediment Not Reportable Urine Bacteria None (NONE) /hpf Salicylates (3-10) mg/dL Urine Opiates Scre en Negative (Negative) ng/mL Acetaminophen (10-30) ug/mL Ur Barbiturates Sc reen Negative (Negative) ng/mL Ur Phencyclidine S crn Negative (Negative) ng/mL Ur Amphetamines Sc reen Negative (Negative) ng/mL U Benzodiazepines Scrn Negative (Negative) ng/mL Urine Cocaine Scre en Negative (Negative) ng/mL U Marijuana (THC) Screen Negative (Negative) ng/mL Ethyl Alcohol (0-10) mg/dL EKG Data^: EKG 1: Attestation: I personally reviewed and interpreted this EKG as follows: EKG interpretation date: 02/14/20 EKG interpretation time: 22:59 Interpretation: Normal sinus rhythm at 66 beats a minute, no blocks, normal intervals, no acute ST-T wave changes. Discharge Plan Discharge Patient Disposition: Admitted As Inpatient Admit Provider: Lan Loyd Clinical Impression: Suicidal ideation, ETOH abuse, Alcoholic intoxication Condition: Stable Coding Level of Care Code ED [employer] Technician for [facility] Fwd Exam Comprehensive
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
[2020-02-14 23:53] LABS: Basophils % 0.3 %; Eosinophils # 0.4 10^3/uL (0.0-0.8); Eosinophils % 5.8 %; Hematocrit 46.7 % (37.0-47.0); Hemoglobin 15.2 g/dL (11.5-15.3); Lymphocytes # 2.9 10^3/uL (0.8-4.8); Lymphocytes % 44.5 %; Mean Corpuscular HGB Conc 32.5 g/dL (30.0-36.0); Mean Corpuscular Hemoglobin 32.3 pg (28.0-34.0); Mean Corpuscular Volume 99.2 fL (81-99); Mean Platelet Volume 9.2 fL (7.4-10.4); Monocytes # 0.2 10^3/uL (0.2-0.9); Monocytes % 3.5 %; Neutrophils # 2.98 10^3/uL (1.8-7.7); Neutrophils % 45.6 %; Nucleated Red Blood Cells % 0 %; Platelet Count 206 10^3/cmm (130-400); Red Blood Count 4.71 10^6/uL (4.1-5.3); Red Cell Distribution Width 14.5 % (12.1-15.1); White Blood Count 6.5 10^3/uL (4.0-10.0)
[2020-02-15] VITALS (51 sets, daily range): BP systolic 115–185; BP diastolic 88–126; PULSE 68–120; RESP 17–20; TEMP 36.6–36.9; O2SAT 86–100
[2020-02-15 00:05] LABS: INR 1.05 (0.8-1.2)
[2020-02-15 00:21] LABS: Alanine Aminotransferase 41 U/L (0-33); Albumin Level 3.7 g/dL (3.5-5.2); Alkaline Phosphatase 71 IU/L (35-105); Anion Gap 15.9 (5-19); Aspartate Amino Transferase 51 U/L (0-32); Blood Urea Nitrogen 4 mg/dL (6-20); Calcium 8.5 mg/dL (8.5-10.5); Carbon Dioxide 27 mmol/L (22-29); Chloride 108 mmol/L (98-107); Globulin 3.4 g/dL (1.3-4.6); Glomerular Filtration Rate 84.2 mL/min (90-130); Glucose 101 mg/dL (65-115); Osmolality Calculated 303 mOsm/kg (285-295); Salicylate 0.5 mg/dL (3-10); Sodium 148 mmol/L (136-145); Thyroid Stimulating Hormone 1.29 uIU/mL (0.27-4.20); Total Bilirubin 0.3 mg/dL (0.15-1.2); Total Protein 7.1 g/dL (6.6-8.7)
[2020-02-15 00:25] LABS: Acetaminophen < 5.0 ug/mL (10-30); Alcohol Level 431 mg/dL (0-10)
[2020-02-15 00:26] LABS: Potassium 2.9 mmol/L (3.5-5.1)
--- NOTE | 2020-02-15 00:30 | PC.NURSE ---
Pt remains uncooperative and confused. Pt resting with eyes closed. Pt combative and threatening anytime awake. Screams and yells.
[2020-02-15 00:41] LABS: Amphetamines Screen Urine Negative (Negative); Barbiturates Screen Urine Negative (Negative); Benzodiazepines Screen Urine Negative (Negative); Cocaine Screen Urine Negative (Negative); Opiate Screen Urine Negative (Negative); PCP Screen Urine Negative (Negative); THC Screen Urine Negative (Negative)
[2020-02-15 00:42] LABS: Add Urine Microscopic? YES; Bilirubin Urine Neg (Negative); Blood Urine 3+ (Negative); Glucose Urine UA Norm (Normal); Ketones Urine Negative (Negative); Leukocyte Esterase Urine Negative (Negative); Nitrate Urine Negative (Negative); Protein Urine Neg (Negative); Urine Appearance Clear (CLEAR); Urine Color Yellow (Yellow); Urobilinogen Urine Norm (Negative); pH Urine 6.5 (5-7)
[2020-02-15 00:43] LABS: Add Urine Culture? No
[2020-02-15 00:44] LABS: Magnesium 1.9 mg/dL (1.7-2.3)
[2020-02-15] MEDS: potassium chloride premix 100 ML 25 MEQ IV (00:46)
--- NOTE | 2020-02-15 01:30 | PC.NURSE ---
Pt resting with eyes closed. Not yet awake, alert, oriented. Restraints remain in place
--- NOTE | 2020-02-15 02:30 | PC.NURSE ---
Pt resting with eyes closed. Remains confused. Restraints remain in place
--- NOTE | 2020-02-15 03:01 | PC.NURSE ---
Pt awake, alert, responding appropriately to questions. Pt requesting something to eat. Apologetic for behavior. Removed restraints at this time. Sitter at bedside. Pt laughing and joking with staff. Oriented x 4. Agreeable. Dr Haskins notified.
[2020-02-15] MEDS: potassium chloride oral liq 20 mEq/15 mL UDC 40 MEQ PO (03:21)
[2020-02-15 04:43] LABS: Blood Urea Nitrogen 4 mg/dL (6-20); Calcium 8.4 mg/dL (8.5-10.5); Carbon Dioxide 25 mmol/L (22-29); Chloride 110 mmol/L (98-107); Glomerular Filtration Rate 98.3 mL/min (90-130); Glucose 103 mg/dL (65-115); Osmolality Calculated 307 mOsm/kg (285-295); Sodium 150 mmol/L (136-145)
[2020-02-15 05:33] LABS: Alcohol Level 323 mg/dL (0-10); Anion Gap 18.7 (5-19); Potassium 3.7 mmol/L (3.5-5.1)
--- NOTE | 2020-02-15 09:28 | PC.RESP ---
SMOKING CESSATION INFORMATION SENT TO PATIENT.
[2020-02-15] MEDS: folic acid 1 mg Tablet PO (11:14)
[2020-02-15] MEDS: LORazepam 2 mg Tablet PO ×2 (11:14→21:03)
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
[2020-02-15] MEDS: OLANZapine 5 mg ODT PO (18:34)
--- NOTE | 2020-02-15 18:39 | PC.NURSE ---
PRN Zyprexa Zydis Patient at desk requesting something for anxiety. 5mg PO Zyrexa Zydis given.
[2020-02-15] MEDS: venlafaxine ER (24HR) 75 mg Capsule PO (21:03)
[2020-02-15] MEDS: prazosin 1 mg Capsule PO (21:03)
[2020-02-15] MEDS: trazodone 150 mg Tablet PO (21:03)
--- NOTE | 2020-02-15 21:24 | PC.NURSE ---
PRN ATIVAN ADMINISTERED ATIVAN 2MG PO PER CIWA SCORE OF 10. WILL MONITOR FOR MEDICATION EFFECTIVENESS.
[2020-02-16 06:00] VITALS: BP 159/98; PULSE 65; RESP 16; TEMP 36.6; O2SAT 98
[2020-02-16] MEDS: LORazepam 2 mg Tablet PO ×3 (06:20→23:38)
--- NOTE | 2020-02-16 06:21 | PC.NURSE ---
PRN ATIVAN ADMINISTERED ATIVAN 2MG PO PER CIWA SCORE OF 12. WILL MONITOR FOR MEDICATION EFFECTIVENESS.
[2020-02-16 07:50] VITALS: PULSE 65; RESP 16; O2SAT 94
[2020-02-16] MEDS: thiamine 100 mg Tablet PO (08:42)
[2020-02-16] MEDS: fluoxetine 20 mg Capsule PO (08:42)
[2020-02-16] MEDS: folic acid 1 mg Tablet PO (08:42)
[2020-02-16] MEDS: multivitamin therapeutic Tablet 1 TAB PO (08:42)
[2020-02-16] MEDS: venlafaxine ER (24HR) 150 mg Capsule PO (08:42)
[2020-02-16] MEDS: metformin XR 500 MG Tablet 1000 MG PO (08:42)
[2020-02-16 14:00] VITALS: BP 138/88; PULSE 64; RESP 20; TEMP 36.8; O2SAT 96
--- NOTE | 2020-02-16 14:51 | PM.NPN ---
Subjective NPU Subjective: Interval history: Wendy presents today continuing to be very noncommittal about treatment. She endorses that she is still on the buprenorphine and that somehow her old provider retired and she got a new provider but she could not explain why she had picked up the prescription still maintained but somehow she had medication at home. We explained that we will not prescribe buprenorphine unless there is a provider who is endorsing that she will have an active prescription they will be continuing once she is discharged. She is aware that she is on a 96-hour hold but is not reporting significant plans for treatment other than waiting for responses from possible rehabs. She seems to be desiring to be discharged. She reports that she is still struggling with withdrawal. Though she will not really articulate when she started drinking again or if she she ever stopped. Mental Status Exam MSE Comments: This is a morbidly obese white female in hospital scrubs with limited grooming and adequate eye contact. No abnormal movements except for psychomotor retardation. Cooperative with exam in no acute distress. Speech was decreased rate and volume. Mood described as abdominal, affect congruent. Thought process organized. Thought content: Patient denied suicidal or homicidal ideation, there were no delusions reported or noted, she denied any auditory or visual hallucinations. Attention and concentration appeared intact and memory was unreliable but none were formally tested. She is alert and oriented x3. Insight and judgment are limited and impulse control is limited. Vitals/I&O/Wt Last Vital Signs Temp 97.9 F 02/16/20 20:17 Pulse 88 02/16/20 20:17 Resp 17 02/16/20 20:17 BP 166/104 02/16/20 20:17 Pulse Ox 93 02/16/20 20:17 Data NPU : 02/14/20 23:47 02/15/20 04:05 A&P Additional A&P Information (1) Suicidal ideation: (2) Alcoholic intoxication: (3) ETOH abuse: (4) Breast lump: (5) Metabolic syndrome: (6) Type 2 diabetes mellitus with hyperglycemia: (7) Posttraumatic stress disorder: (8) Alcohol use disorder: (9) H/O drug abuse: (10) Essential (primary) hypertension: (11) Buprenorphine dependence: (12) Hepatitis C antibody positive in blood: (13) Alcohol abuse with alcohol-induced mood disorder: (14) Unspecified asthma, uncomplicated: (15) Tobacco abuse: This a 29-year-old white female with a long history of substance abuse and particularly alcohol addiction who presents with recent intoxication, reports of recent trauma and no real sense that she is invested in treatment. 1. Continue current medication. Increase Effexor XR to 150 mg p.o. every morning. 2. Continue every 15 minute checks for safety. 3. Encourage individual, group and milieu therapy. 4. Continue CIWA protocol. 5. Continue to encourage sober living treatments at the highest level to which she is willing to commit after discharge. Involuntary Hold Information 96 Hour Hold: 96 Hour Involuntary Admission: Yes 96 Hour Hold Ending Date: 02/21/20 96 Hour Hold Ending Time: 00:56 Attestations NPU Medical Necessity Statement*: Inpatient hospitalization is medically necessary and the clinically appropriate intervention at this time. We will monitor medications and make changes as indicated. Likely length of stay 1-3 days. Coding Level of Care Code Acute Retail Mortgage Banker for Bartolo Lund
--- NOTE | 2020-02-16 16:27 | PC.NURSE ---
Request for Suboxone Patient at nurse's station requesting Suboxone. This nurse called [facility], [facility] in [facility], to verify active prescription. Pharmacy stated they had filled her regular prescription (8mg TID) on 12/28/19 for a total of 30 days. Pharmacist then stated she did have a prescription for a lower dose Suboxone 2-0.5mg with a different provider on 02/07/20, however, patient never picked it up. Dr. Loyd notified by this nurse. No new orders.
[2020-02-16 20:17] VITALS: BP 166/104; PULSE 88; RESP 17; TEMP 36.6; O2SAT 93
[2020-02-16] MEDS: trazodone 150 mg Tablet PO (21:13)
--- NOTE | 2020-02-16 21:14 | PC.NURSE ---
PM assessment Pt came to the unit with elevated BAL of 431. Last BAL 323 on 02/15/20. Pt has elevated Blood pressure of 166/104 this evening. She requested Ativan but is not able to have it again until midnight. She is evasive when asked questions, irritable with staff, demanding of medications from the med nurse. No other s/s of distress noted at this time. Will continue to monitor the pt as she is on [facility] protocol.
[2020-02-16] MEDS: prazosin 1 mg Capsule PO (21:15)
--- NOTE | 2020-02-16 21:19 | PC.NURSE ---
Ciwa score 3
[2020-02-16] MEDS: OLANZapine 5 mg ODT PO (22:32)
--- NOTE | 2020-02-16 23:38 | PC.NURSE ---
PRN ATIVAN ADMINISTERED ATIVAN 2 MG PO PER CIWA PROTOCOL. WILL MONITOR FOR MEDICATION EFFECTIVENESS.
[2020-02-17 06:00] VITALS: BP 177/129; PULSE 60; RESP 16; TEMP 36.7; O2SAT 92
[2020-02-17] MEDS: metformin XR 500 MG Tablet 1000 MG PO (08:21)
[2020-02-17] MEDS: folic acid 1 mg Tablet PO (08:21)
[2020-02-17] MEDS: venlafaxine ER (24HR) 150 mg Capsule PO (08:21)
[2020-02-17] MEDS: thiamine 100 mg Tablet PO (08:21)
[2020-02-17] MEDS: multivitamin therapeutic Tablet 1 TAB PO (08:21)
[2020-02-17] MEDS: fluoxetine 20 mg Capsule PO (08:21)
[2020-02-17 13:22] VITALS: BP 150/107; PULSE 83; RESP 18; TEMP 36.4; O2SAT 92
[2020-02-17 13:55] VITALS: BP 150/107; PULSE 83; RESP 18; TEMP 36.4; O2SAT 92
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
== END 2020-02-17 14:42 | disposition home or self-care (01) | DRG 897 ==
LOC: ER 21:14 → NP 02-15 02:04
PROVIDERS: Admitting Provider Psychiatry & Neurology Psychiatry; Emergency Provider Emergency Medicine; PCP Nurse Practitioner; Visit Provider Psychiatry & Neurology Psychiatry
DX: F10.14 Alcohol abuse with alcohol-induced mood disorder (principal); R45.851 Suicidal ideations; F11.20 Opioid dependence, uncomplicated; Z68.43 Body mass index [BMI] 50.0-59.9, adult; F10.129 Alcohol abuse with intoxication, unspecified; T43.216A Underdosing of selective serotonin and norepinephrine reuptake inhibitors, initial encounter; Z91.120 Patient's intentional underdosing of medication regimen due to financial hardship; F17.210 Nicotine dependence, cigarettes, uncomplicated; N63.0 Unspecified lump in unspecified breast; E88.81 Metabolic syndrome and other insulin resistance; E11.65 Type 2 diabetes mellitus with hyperglycemia; F43.12 Post-traumatic stress disorder, chronic; I10 Essential (primary) hypertension; B18.2 Chronic viral hepatitis C; J45.909 Unspecified asthma, uncomplicated; E66.01 Morbid (severe) obesity due to excess calories; F15.11 Other stimulant abuse, in remission; F16.21 Hallucinogen dependence, in remission
CPT/HCPCS: 12345; 80048; 80053; 80306; 80307; 81001; 83735; 84443; 85025; 85610; 93005; 99284; J1200; J1630; J3480

== ENCOUNTER → 2020-02-22 14:49 | Outpatient (BNVA) | payer MEDICAID, SELFPAY | PROVIDERS: PCP Nurse Practitioner; Visit Provider Nurse Practitioner Family | DX: R30.0 Dysuria (principal); F10.10 Alcohol abuse, uncomplicated; N30.01 Acute cystitis with hematuria; B37.3 Candidiasis of vulva and vagina; Z30.09 Encounter for other general counseling and advice on contraception | CPT/HCPCS: 81003; 87086; 87491; 87591; 87661 ==

== ENCOUNTER 2020-02-27 21:11 | Inpatient (IN) | payer MEDICAID, SELFPAY ==
[2020-02-27 21:18] VITALS: BP 112/74; PULSE 98; RESP 18; TEMP 36.7; O2SAT 99; BMI 41.5
[2020-02-27] MEDS: ziprasidone 20 mg/mL SDV IM (21:27)
--- NOTE | 2020-02-27 21:39 | W.ED.PSYCH ---
HPI - Psych General: Chief Complaint: Psychiatric Symptoms Stated Complaint: ETOH Time Seen by Provider: 02/27/20 21:14 History of Present Illness: HPI Narrative: 29-year-old female well-known to the emergency department. She has a history of alcohol abuse. She presents after making suicidal statements. She rolls in the door, freely admitting that she wants to , and that she is suicidal. She became upset when she was told she could not go outside to smoke a cigarette, began to thrash around in the gurney in the hallway before she was even able to be placed in a room. She was shouting expletives and making threats to staff. She was brought in by EMS. MD complaint: suicidal ideation and altered mental status Onset (ago): hour(s) Duration: constant History of same: Yes Relieving factors: none Exacerbating factors: alcohol Context: recent alcohol abuse Associated symptoms: Reports depression and suicidal ideation Review of Systems General: Reports: ROS unobtainable due to medical condition (etoh intoxication) Const: Denies: fever(s) Card: Reports: chest pain (as reported by respiratory services manager. she denies now) Resp: Denies: dyspnea GI: Denies: vomiting : Denies: flank pain or urinary urgency Psych: Reports: depression and suicidal ideation [facility] PFSH: Medical History Alcohol abuse with alcohol-induced mood disorder Essential (primary) hypertension not on any chronic treatment 09/26 Family history of alpha 1 antitrypsin deficiency Fibromyalgia Generalized anxiety disorder H/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, includes meth, heroin, others, on buprenorphine Hepatitis C antibody positive in blood Hx of abscess of skin and subcutaneous tissue right arm Major depressive disorder, recurrent, moderate Nontoxic thyroid nodule Opioid abuse Polycystic ovarian syndrome polycystic ovaries not notated on CT abdomen/pelvis 01/26 Unspecified asthma, uncomplicated onset in childhood Surgical History Hx of cholecystectomy Family History Other [id number] deficiency Drug abuse, amphetamine type Hypertension Social History Smoking and tobacco status: current every day smoker cigarettes Packs smoked per day: 1.5 Years cigarettes smoked: 15 Quit status (tobacco): considering quitting Second hand smoke exposure: Yes Smoking risk assessment/counseling performed?: Yes Alcohol intake: current Alcohol intake frequency: 3 or more drinks per day Alcohol type: hard liquor Desire information about alcohol rehabilitation?: Yes Counseling given: No Desire information about substance/drug rehabilitation?: No Counseling given: No Other details last substance use: Has used methamphetamine, heroin, pain medications. Adopted: No Caregiver/support person: No Lives independently: Yes Household members: friend(s) Housing: Manufactured/Mobile home Marital status: Single Number of children: 2 service: No Current occupational status: employed History of recent travel: No Current gender identity: Female Female Reproductive History: Date of last menstrual period: 12/29/19 Para: 2 Physical Exam Const: EXAM LIMITATIONS: behavioral limitations GENERAL APPEARANCE: disheveled NUTRITIONAL APPEARANCE: obese ORIENTATION/CONSCIOUSNESS: Yes awake, Yes oriented to person and Yes oriented to place HENMT: COMMON NORMALS: normocephalic, external ears normal and Normal external nose present HEAD & SCALP: normocephalic FACE & SINUS: face symmetric NOSE: Normal external nose present EXTERNAL EAR: Yes external ears normal Chest: COMMONS NORMALS: normal inspection of the chest Resp: COMMON NORMALS: normal respiratory effort and No use of accessory muscles EFFORT & INSPECTION: No tachypneic and No respiratory distress Cardio: COMMON NORMALS: regular rate, regular rhythm and Peripheral pulses 2+ throughout RATE: regular rate RHYTHM: regular rhythm PERIPHERAL PULSES: Peripheral pulses 2+ throughout GI: COMMON NORMALS: Normal to inspection, nondistended, normoactive bowel sounds present and Soft to palpation PALPATION: Yes Soft to palpation Neuro: SENSORIUM/ORIENTATION: Yes oriented to person and Yes oriented to place Psych: APPEARANCE: Yes disheveled ATTITUDE: Yes uncooperative, Yes Belligerent attititude/behavior present, Yes agitated, Yes aggressive and Yes hostile ACTIVITY/MOTOR BEHAVIOR: Yes psychomotor agitation, Yes fidgeting, Yes hyperactivity and Yes restless SPEECH: Yes excessive and Yes loud MOOD & AFFECT: Yes irritable and Yes hostile affect THOUGHT PROCESS: Circumstantial thought process present THOUGHT CONTENT: Yes Suicidality present ATTENTION/CONCENTRATION: Yes attention grossly impaired and Yes concentration grossly impaired INSIGHT: Limited insight present (Psych) JUDGEMENT: Poor judgement present (Psych) MDM - Psych MDM Narrative: Medical decision making narrative: Patient's alcohol level is 200. Hemoglobin 16. Other laboratory is benign. She is positive for benzodiazepines, and urine was taken before she was given benzodiazepines here. She is also positive for marijuana. Upon arrival, she began to shout expletives, make threats to staff, and thrash around in her gurney. She was trying to get up. She had already admitted to being suicidal. 96-hour hold was placed on the patient. She was given an injection of ketamine, followed by injection of Geodon. Following this, she seemed to be calm. She remained awake. She became agitated 1 more time, and she became somewhat tachycardic, possibly due to the onset of mild alcohol withdrawal, given she is a daily drinker, and her alcohol level is falling. She was given an injection of lorazepam at that point with improvement in her heart rate and agitation. She is otherwise medically stable for the neuropsychiatric unit. Spoke with the psychiatrist who agrees to admission. He will see her there Lab Data: Attestation: I reviewed the patient's lab results. Labs: Lab Results 02/27/20 02/27/20 02/27/20 Range/Units 22:22 22:22 22:22 WBC 8.5 (4.0-10.0) 10^3/ uL RBC 4.85 (4.1-5.3) 10^6/u L Hgb 15.9 H (11.5-15.3) g/dL Hct 47.5 H (37.0-47.0) % MCV 97.9 (81-99) fL MCH 32.8 (28.0-34.0) pg MCHC 33.5 (30.0-36.0) g/dL RDW 14.6 (12.1-15.1) % Plt Count 241 (130-400) 10^3/c mm MPV 9.6 (7.4-10.4) fL Neut % (Auto) 52.3 % Lymph % (Auto) 39.5 % [place] % (Auto) 4.6 % Eos % (Auto) 3.0 % Baso % (Auto) 0.4 % Neut # (Auto) 4.47 (1.8-7.7) 10^3/u L Lymph # (Auto) 3.4 (0.8-4.8) 10^3/u L [place] # (Auto) 0.4 (0.2-0.9) 10^3/u L Eos # (Auto) 0.3 (0.0-0.8) 10^3/u L Baso # (Auto) 0.0 (0.0-0.1) 10^3/u L Nucleated RBC % (a uto) 0 % Nucleated RBCs # 0.0 /100WBC PT 14.70 (12.1-14.9) SECO NDS INR 1.12 (0.8-1.2) Sodium 146 H (136-145) mmol/L Potassium 3.5 (3.5-5.1) mmol/L Chloride 107 (98-107) mmol/L Carbon Dioxide 21 L (22-29) mmol/L Anion Gap 21.5 H (5-19) BUN 6 (6-20) mg/dL Creatinine 0.7 (0.5-0.9) mg/dL GFR Calculation 98.3 (90-130) mL/min Glucose 95 (65-115) mg/dL Calculated Osmolal ity 299 H (285-295) mOsm/k g Calcium 9.2 (8.5-10.5) mg/dL Total Bilirubin 0.4 (0.15-1.2) mg/dL AST 58 H (0-32) U/L ALT 58 H (0-33) U/L Alkaline Phosphata se 85 (35-105) IU/L Total Protein 8.1 (6.6-8.7) g/dL Albumin 4.1 (3.5-5.2) g/dL Globulin 4.0 (1.3-4.6) g/dL Urine Color (Yellow) Urine Appearance (CLEAR) Urine pH (5-7) Ur Specific Gravit y (1.005-1.030) Urine Protein (Negative) Urine Glucose (UA) (Normal) Urine Ketones (Negative) Urine Blood (Negative) Urine Nitrate (Negative) Urine Bilirubin (Negative) Urine Urobilinogen (Negative) mg/dL Ur Leukocyte Louisa ase (Negative) Urine RBC (0-2) /hpf Urine WBC (0-5) /hpf Ur Squamous Epith Cells (0-5) /hpf Amorphous Sediment Urine Bacteria (NONE) /hpf Salicylates 0.5 L (3-10) mg/dL Urine Opiates Scre en (Negative) ng/mL Acetaminophen < 5.0 L (10-30) ug/mL Ur Barbiturates Sc reen (Negative) ng/mL Ur Phencyclidine S crn (Negative) ng/mL Ur Amphetamines Sc reen (Negative) ng/mL U Benzodiazepines Scrn (Negative) ng/mL [place] (0.6-1.2) mmol/L Urine Cocaine Scre en (Negative) ng/mL U Marijuana (THC) Screen (Negative) ng/mL Ethyl Alcohol 204 H (0-10) mg/dL 02/27/20 02/27/20 02/27/20 Range/Units 22:22 22:22 22:22 WBC (4.0-10.0) 10^3/ uL RBC (4.1-5.3) 10^6/u L Hgb (11.5-15.3) g/dL Hct (37.0-47.0) % MCV (81-99) fL MCH (28.0-34.0) pg MCHC (30.0-36.0) g/dL RDW (12.1-15.1) % Plt Count (130-400) 10^3/c mm MPV (7.4-10.4) fL Neut % (Auto) % Lymph % (Auto) % [place] % (Auto) % Eos % (Auto) % Baso % (Auto) % Neut # (Auto) (1.8-7.7) 10^3/u L Lymph # (Auto) (0.8-4.8) 10^3/u L [place] # (Auto) (0.2-0.9) 10^3/u L Eos # (Auto) (0.0-0.8) 10^3/u L Baso # (Auto) (0.0-0.1) 10^3/u L Nucleated RBC % (a uto) % Nucleated RBCs # /100WBC PT (12.1-14.9) SECO NDS INR (0.8-1.2) Sodium (136-145) mmol/L Potassium (3.5-5.1) mmol/L Chloride (98-107) mmol/L Carbon Dioxide (22-29) mmol/L Anion Gap (5-19) BUN (6-20) mg/dL Creatinine (0.5-0.9) mg/dL GFR Calculation (90-130) mL/min Glucose (65-115) mg/dL Calculated Osmolal ity (285-295) mOsm/k g Calcium (8.5-10.5) mg/dL Total Bilirubin (0.15-1.2) mg/dL AST (0-32) U/L ALT (0-33) U/L Alkaline Phosphata se (35-105) IU/L Total Protein (6.6-8.7) g/dL Albumin (3.5-5.2) g/dL Globulin (1.3-4.6) g/dL Urine Color Yellow (Yellow) Urine Appearance Sl hazy (CLEAR) Urine pH 6 (5-7) Ur Specific Gravit y 1.010 (1.005-1.030) Urine Protein Trace (Negative) Urine Glucose (UA) Norm (Normal) Urine Ketones 1+ H (Negative) Urine Blood Neg (Negative) Urine Nitrate Negative (Negative) Urine Bilirubin Neg (Negative) Urine Urobilinogen 1 H (Negative) mg/dL Ur Leukocyte Louisa ase Negative (Negative) Urine RBC 0-4 H (0-2) /hpf Urine WBC 0-4 H (0-5) /hpf Ur Squamous Epith Cells 40-55 H (0-5) /hpf Amorphous Sediment Not Reportable Urine Bacteria Trace (NONE) /hpf Salicylates (3-10) mg/dL Urine Opiates Scre en Negative (Negative) ng/mL Acetaminophen (10-30) ug/mL Ur Barbiturates Sc reen Negative (Negative) ng/mL Ur Phencyclidine S crn Negative (Negative) ng/mL Ur Amphetamines Sc reen Negative (Negative) ng/mL U Benzodiazepines Scrn Positive H (Negative) ng/mL [place] 0.1 L (0.6-1.2) mmol/L Urine Cocaine Scre en Negative (Negative) ng/mL U Marijuana (THC) Screen Positive H (Negative) ng/mL Ethyl Alcohol (0-10) mg/dL Discharge Plan Discharge Patient Disposition: Admitted As Inpatient Admit Provider: Lan Loyd Clinical Impression: Suicidal ideation, ETOH abuse Condition: Stable Coding Level of Care Code ED Binder Technician for [facility] Fwd Exam Detailed
[2020-02-27 21:48] VITALS: BP 158/97; PULSE 101; RESP 18; O2SAT 98
[2020-02-27 22:23] VITALS: PULSE 111; RESP 16; O2SAT 97
[2020-02-27 22:30] VITALS: PULSE 121; RESP 16; O2SAT 97
[2020-02-27 22:34] LABS: Basophils % 0.4 %; Eosinophils # 0.3 10^3/uL (0.0-0.8); Hematocrit 47.5 % (37.0-47.0); Hemoglobin 15.9 g/dL (11.5-15.3); Lymphocytes # 3.4 10^3/uL (0.8-4.8); Lymphocytes % 39.5 %; Mean Corpuscular HGB Conc 33.5 g/dL (30.0-36.0); Mean Corpuscular Hemoglobin 32.8 pg (28.0-34.0); Mean Corpuscular Volume 97.9 fL (81-99); Mean Platelet Volume 9.6 fL (7.4-10.4); Monocytes # 0.4 10^3/uL (0.2-0.9); Monocytes % 4.6 %; Neutrophils # 4.47 10^3/uL (1.8-7.7); Neutrophils % 52.3 %; Nucleated Red Blood Cells % 0 %; Platelet Count 241 10^3/cmm (130-400); Red Blood Count 4.85 10^6/uL (4.1-5.3); Red Cell Distribution Width 14.6 % (12.1-15.1); White Blood Count 8.5 10^3/uL (4.0-10.0)
[2020-02-27 22:39] LABS: INR 1.12 (0.8-1.2)
[2020-02-27 22:44] LABS: Alanine Aminotransferase 58 U/L (0-33); Albumin Level 4.1 g/dL (3.5-5.2); Alcohol Level 204 mg/dL (0-10); Alkaline Phosphatase 85 IU/L (35-105); Anion Gap 21.5 (5-19); Aspartate Amino Transferase 58 U/L (0-32); Blood Urea Nitrogen 6 mg/dL (6-20); Calcium 9.2 mg/dL (8.5-10.5); Carbon Dioxide 21 mmol/L (22-29); Chloride 107 mmol/L (98-107); Glomerular Filtration Rate 98.3 mL/min (90-130); Glucose 95 mg/dL (65-115); Osmolality Calculated 299 mOsm/kg (285-295); Potassium 3.5 mmol/L (3.5-5.1); Salicylate 0.5 mg/dL (3-10); Sodium 146 mmol/L (136-145); Total Bilirubin 0.4 mg/dL (0.15-1.2); Total Protein 8.1 g/dL (6.6-8.7)
[2020-02-27 22:46] LABS: Amphetamines Screen Urine Negative (Negative); Barbiturates Screen Urine Negative (Negative); Benzodiazepines Screen Urine Positive (Negative); Cocaine Screen Urine Negative (Negative); Opiate Screen Urine Negative (Negative); PCP Screen Urine Negative (Negative); THC Screen Urine Positive (Negative)
[2020-02-27 22:47] LABS: Acetaminophen < 5.0 ug/mL (10-30)
[2020-02-27 22:48] LABS: Add Urine Microscopic? YES; Bilirubin Urine Neg (Negative); Blood Urine Neg (Negative); Glucose Urine UA Norm (Normal); Ketones Urine 1+ (Negative); Leukocyte Esterase Urine Negative (Negative); Nitrate Urine Negative (Negative); Protein Urine Trace (Negative); Urine Appearance SL Hazy (CLEAR); Urine Color Yellow (Yellow); Urobilinogen Urine 1 mg/dL (Negative); pH Urine 6 (5-7)
[2020-02-27 22:49] LABS: Bacteria Urine TRACE /hpf; RBC Urine 0-4 /hpf (0-2); Squamous Epithelial Cell Urine 40-55 /hpf (0-5); WBC Urine 0-4 /hpf (0-5)
[2020-02-27 22:50] LABS: Add Urine Culture? No
[2020-02-27 23:07] LABS: Lithium 0.1 mmol/L (0.6-1.2)
[2020-02-27 23:46] VITALS: BP 128/71; PULSE 73; RESP 16; O2SAT 97
[2020-02-28] VITALS (7 sets, daily range): BP systolic 138–167; BP diastolic 62–91; PULSE 88–110; RESP 16–18; TEMP 36–36.8; O2SAT 91–98
[2020-02-28] MEDS: LORazepam 2 mg/mL INJ 1 mL IM (00:02)
[2020-02-28] MEDS: trazodone 50 mg Tablet PO (01:47)
[2020-02-28] MEDS: haloperidol 5 mg Tablet PO (01:47)
[2020-02-28 06:50] LABS: Glucose Point of Care 102 mg/dL (70-110)
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
[2020-02-28] MEDS: thiamine 100 mg Tablet PO (11:01)
[2020-02-28] MEDS: metformin XR 500 MG Tablet 1000 MG PO (11:01)
[2020-02-28] MEDS: folic acid 1 mg Tablet PO (11:02)
[2020-02-28] MEDS: multivitamin therapeutic Tablet 1 TAB PO (11:02)
[2020-02-28] MEDS: venlafaxine ER (24HR) 150 mg Capsule PO (11:02)
[2020-02-28] MEDS: fluoxetine 20 mg Capsule PO (11:02)
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
--- NOTE | 2020-02-29 13:50 | PC.RESP ---
SMOKING CESSATION INFORMATION SENT TO PATIENT.
== END 2020-02-28 17:04 | disposition home or self-care (01) | DRG 897 ==
LOC: ER 23:06 → NP 02-28 01:24
PROVIDERS: Admitting Provider Psychiatry & Neurology Psychiatry; Emergency Provider Emergency Medicine; PCP Nurse Practitioner; Visit Provider Psychiatry & Neurology Psychiatry
DX: F10.129 Alcohol abuse with intoxication, unspecified (principal); R45.851 Suicidal ideations; F33.1 Major depressive disorder, recurrent, moderate; Z68.41 Body mass index [BMI] 40.0-44.9, adult; Y90.8 Blood alcohol level of 240 mg/100 ml or more; F17.210 Nicotine dependence, cigarettes, uncomplicated; E66.01 Morbid (severe) obesity due to excess calories; T43.216A Underdosing of selective serotonin and norepinephrine reuptake inhibitors, initial encounter; Z91.120 Patient's intentional underdosing of medication regimen due to financial hardship; F10.14 Alcohol abuse with alcohol-induced mood disorder; I10 Essential (primary) hypertension; M79.7 Fibromyalgia; F41.1 Generalized anxiety disorder; B19.20 Unspecified viral hepatitis C without hepatic coma; E04.1 Nontoxic single thyroid nodule; F11.10 Opioid abuse, uncomplicated; E28.2 Polycystic ovarian syndrome; Z79.84 Long term (current) use of oral hypoglycemic drugs; Z79.51 Long term (current) use of inhaled steroids; F43.12 Post-traumatic stress disorder, chronic; E11.65 Type 2 diabetes mellitus with hyperglycemia; J45.909 Unspecified asthma, uncomplicated
CPT/HCPCS: 12345; 36416; 80053; 80178; 80306; 80307; 81001; 82962; 85025; 85610; 96372; 99284; J2060; J3486; J3490

== ENCOUNTER 2020-02-28 23:05 | Emergency (ER) | payer MEDICAID, SELFPAY ==
[2020-02-28 23:15] VITALS: BP 158/108; PULSE 94; RESP 16; TEMP 36.8; O2SAT 96; BMI 45.6
--- NOTE | 2020-02-28 23:28 | ED_ITS ---
HPI - Psych General: Chief Complaint: Psychiatric Symptoms Stated Complaint: ANXIETY, DEPRESSION, WANTS EVALUATED Time Seen by Provider: 02/28/20 23:26 Source: patient Mode of arrival: ambulatory Limitations: no limitations History of Present Illness: HPI Narrative: 29-year-old female who states she has been having anxiety. She was just discharged from the psychiatric unit. S he denies any suicidal homicidal ideations. She states that they did not do anything for anxiety though. She denies any worsening improving factors. Review of Systems Const: Denies: fever(s), chills, body aches or change in appetite Eyes: Denies: blurry vision or eye discomfort ENMT: Denies: throat pain or dental pain Card: Denies: chest pain Resp: Denies: dyspnea GI: Denies: abdominal pain, nausea, vomiting or diarrhea : Denies: dysuria Musc: Denies: neck pain or back pain Skin/Breast: Denies: rash Neuro: Denies: headache(s) Psych: Reports: anxiety Dg/Lymph: Denies: easy bruising All/Imm: Denies: urticaria PFSH ED PFSH: Medical History Alcohol abuse with alcohol-induced mood disorder Essential (primary) hypertension not on any chronic treatment 09/26 Family history of alpha 1 antitrypsin deficiency Fibromyalgia Generalized anxiety disorder H/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, includes meth, heroin, others, on buprenorphine Hepatitis C antibody positive in blood Hx of abscess of skin and subcutaneous tissue right arm Major depressive disorder, recurrent, moderate Nontoxic thyroid nodule Opioid abuse Polycystic ovarian syndrome polycystic ovaries not notated on CT abdomen/pelvis 01/26 Unspecified asthma, uncomplicated onset in childhood Surgical History Hx of cholecystectomy Family History Other [id number] deficiency Drug abuse, amphetamine type Hypertension Social History Smoking and tobacco status: current every day smoker cigarettes Packs smoked per day: 1.5 Years cigarettes smoked: 15 Quit status (tobacco): considering quitting Second hand smoke exposure: Yes Smoking risk assessment/counseling performed?: Yes Alcohol intake: current Alcohol intake frequency: 3 or more drinks per day Alcohol type: hard liquor Desire information about alcohol rehabilitation?: Yes Counseling given: No Desire information about substance/drug rehabilitation?: No Counseling given: No Other details last substance use: Has used methamphetamine, heroin, pain medications. Adopted: No Caregiver/support person: No Lives independently: Yes Household members: friend(s) Housing: Manufactured/Mobile home Marital status: Single Number of children: 2 service: No Current occupational status: employed History of recent travel: No Current gender identity: Female Female Reproductive History: Date of last menstrual period: 12/29/19 Para: 2 Physical Exam Const: COMMON NORMALS: no acute distress, patient oriented x3 and healthy appearing HENMT: COMMON NORMALS: normocephalic and atraumatic HEAD & SCALP: normocephalic and atraumatic Eye: COMMON NORMALS: Equal, round and reactive pupils present and EOMs intact bilaterally PUPIL: Yes Equal, round and reactive pupils present Neck/C-Spine: COMMON NORMALS: full ROM and supple Chest: COMMONS NORMALS: normal inspection of the chest and normal palpation of entire chest wall Resp: COMMON NORMALS: normal respiratory effort, No retractions, No use of accessory muscles and clear to auscultation bilaterally AUSCULTATION: clear to auscultation bilaterally Cardio: COMMON NORMALS: regular rate, regular rhythm and No murmurs present (Cardio) RATE: regular rate RHYTHM: regular rhythm GI: COMMON NORMALS: Normal to inspection, nondistended, normoactive bowel sounds present, Soft to palpation, non-tender and no masses PALPATION: Yes Soft to palpation Extremity: COMMON NORMALS: normal to inspection and full ROM Neuro: COMMON NORMALS: patient oriented x3, moves all extremities and no focal motor deficits Psych: COMMON NORMALS: mental status grossly normal, Normal thought process present and cooperative THOUGHT PROCESS: Normal thought process present Skin: COMMON NORMALS: no rashes or lesions noted and no wounds GENERAL SKIN EXAM: no rashes or lesions noted MDM - Psych MDM Narrative: Medical decision making narrative: Patient presents here with anxiety. She has no suicidal or homicidal ideations. Patient just discharged from [facility] and is stable for discharge. She is to return if she does have any suicidality and she understands and agrees to plan. Discharge Plan Discharge Patient Disposition: Home Clinical Impression: Acute anxiety Condition: Stable Prescriptions: No Action (DME) nebulizer accessories Kit See Rx Instructions .ROUTE .MEDSUPPLY Qty: 1 RF: 0 sulfamethoxazole-trimethoprim [Bactrim DS] 800-160 mg tablet 1 tab PO BID 7 Days Qty: 14 RF: 0 fluconazole [Diflucan] 150 mg tablet 150 mg PO ONCE Qty: 1 RF: 0 multivitamin with folic acid [Thera] 400 mcg Tablet 1 tab PO DAILY 30 Days Qty: 30 RF: 1 albuterol sulfate 2.5 mg /3 mL (0.083 %) solution for nebulization 2.5 mg INHALATION QID PRN (Reason: shortness of breath or wheezing) 14 Days Qty: 75 RF: 2 epinephrine [EpiPen 2-Gerardo] 0.3 mg/0.3 mL auto-injector 0.3 mg IM Q10M PRN (Reason: anaphylaxis) 30 Days Qty: 2 RF: 1 Pulmicort Flexhaler 180 mcg/actuation Aerosol Powdr Breath Activated 1 inh INHALATION DAILY RF: 0 venlafaxine 150 mg Capsule,Extended Release 24hr 150 mg PO DAILY 30 Days Qty: 30 RF: 1 prazosin 1 mg capsule 1 mg PO BEDTIME 30 Days Qty: 30 RF: 1 trazodone 150 mg Tablet 150 mg PO BEDTIME 30 Days Qty: 30 RF: 1 folic acid 1 mg Tablet 1 mg PO DAILY 30 Days Qty: 30 RF: 1 fluoxetine [Prozac] 20 mg Capsule 20 mg PO DAILY 30 Days Qty: 30 RF: 1 metformin 500 mg tablet extended release 24hr 1,000 mg PO DAILY 30 Days Qty: 60 RF: 1 thiamine mononitrate (vit B1) [Vitamin B-1 (mononitrate)] 100 mg Tablet 100 mg PO DAILY 30 Days Qty: 30 RF: 1 Discharge Orders: Discharge ED (Routine); Ordered 02/28/20 Ordered By: Niranjan Martinez Referrals: David Villar, [facility] [Primary Care Provider] - 1-3 days Discharge Diet: Advance as tolerated Discharge Activity: Resume usual activity Patient Instructions: Anxiety (ED) Coding Level of Care Code ED Vocational Placement Specialist for Bartolo Lund
== END 2020-02-28 23:39 | disposition home or self-care (01) ==
PROVIDERS: Emergency Provider Emergency Medicine; PCP Nurse Practitioner
DX: F41.9 Anxiety disorder, unspecified (principal); I10 Essential (primary) hypertension; Z86.19 Personal history of other infectious and parasitic diseases; F17.210 Nicotine dependence, cigarettes, uncomplicated
CPT/HCPCS: 12345; 99284

== ENCOUNTER 2020-03-03 21:24 | Emergency (ER) | payer MEDICAID, SELFPAY ==
[2020-03-03 21:11] VITALS: BP 137/86; PULSE 108; RESP 27; TEMP 36.8; O2SAT 100; BMI 46.3
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
[2020-03-03 21:28] LABS: Add Urine Microscopic? NO
[2020-03-03 21:30] LABS: Basophils # 0.1 10^3/uL (0.0-0.1); Basophils % 0.6 %; Eosinophils # 0.8 10^3/uL (0.0-0.8); Eosinophils % 8.4 %; Hematocrit 43.1 % (37.0-47.0); Hemoglobin 14.2 g/dL (11.5-15.3); Lymphocytes # 3.5 10^3/uL (0.8-4.8); Lymphocytes % 35.5 %; Mean Corpuscular HGB Conc 32.9 g/dL (30.0-36.0); Mean Corpuscular Volume 100.2 fL (81-99); Mean Platelet Volume 10.1 fL (7.4-10.4); Monocytes # 0.4 10^3/uL (0.2-0.9); Monocytes % 4.1 %; Neutrophils # 5.01 10^3/uL (1.8-7.7); Nucleated Red Blood Cells % 0 %; Platelet Count 260 10^3/cmm (130-400); Red Cell Distribution Width 14.6 % (12.1-15.1); White Blood Count 9.8 10^3/uL (4.0-10.0)
[2020-03-03 21:33] LABS: Bilirubin Urine Neg (Negative); Blood Urine Neg (Negative); Glucose Urine UA Norm (Normal); Ketones Urine Negative (Negative); Leukocyte Esterase Urine Negative (Negative); Nitrate Urine Negative (Negative); Protein Urine Neg (Negative); Specific Gravity, Urine 1.005 (1.005-1.030); Urine Appearance Clear (CLEAR); Urine Color Straw (Yellow); Urobilinogen Urine Norm (Negative); pH Urine 6.5 (5-7)
[2020-03-03 21:42] LABS: HCG, Serum Qual Negative (Negative)
[2020-03-03 21:51] LABS: Alanine Aminotransferase 51 U/L (0-33); Albumin Level 3.7 g/dL (3.5-5.2); Alkaline Phosphatase 70 IU/L (35-105); Anion Gap 12.8 (5-19); Aspartate Amino Transferase 42 U/L (0-32); Blood Urea Nitrogen 10 mg/dL (6-20); Calcium 8.4 mg/dL (8.5-10.5); Carbon Dioxide 26 mmol/L (22-29); Chloride 107 mmol/L (98-107); Globulin 3.1 g/dL (1.3-4.6); Glomerular Filtration Rate 52.7 mL/min (90-130); Glucose 74 mg/dL (65-115); Osmolality Calculated 292 mOsm/kg (285-295); Potassium 3.8 mmol/L (3.5-5.1); Sodium 142 mmol/L (136-145); Total Bilirubin 0.2 mg/dL (0.15-1.2); Total Protein 6.8 g/dL (6.6-8.7)
[2020-03-03 22:13] VITALS: BP 126/72; PULSE 95; RESP 23; O2SAT 100
[2020-03-03 22:24] VITALS: RESP 17; O2SAT 96
[2020-03-03] MEDS: morphine 4 mg/mL SDV 1 mL IVP (22:24)
[2020-03-03] MEDS: ondansetron 2 mg/ML SDV 2 mL 4 MG IVP (22:24)
[2020-03-03] MEDS: iohexol 300 mg/mL 100 mL Btl IV (22:25)
[2020-03-03 23:46] VITALS: BP 121/91; PULSE 89; O2SAT 98
--- NOTE | 2020-03-04 | PC.NURSE ---
Called pt mother Doris Montenegro to attempt to find pt a ride. Doris said she could not come get her but would try to call her father. Attempted to call Doris back to see if pt had a ride. Call went straight to voicemail.
[2020-03-04] MEDS: acetaminophen 500 mg Tablet 1000 MG PO (03:52)
[2020-03-04 04:34] VITALS: BP 123/83; PULSE 91; RESP 18; O2SAT 99
== END 2020-03-04 04:34 | disposition home or self-care (01) ==
PROVIDERS: Emergency Provider Emergency Medicine; PCP Nurse Practitioner
DX: T07.XXXA Unspecified multiple injuries, initial encounter (principal); X99.9XXA Assault by unspecified sharp object, initial encounter; V09.9XXA Pedestrian injured in unspecified transport accident, initial encounter; I10 Essential (primary) hypertension; F17.210 Nicotine dependence, cigarettes, uncomplicated; Z86.19 Personal history of other infectious and parasitic diseases
CPT/HCPCS: 12345; 70450; 71045; 71260; 72125; 72128; 72131; 72170; 74177; 80053; 81003; 84703; 85025; 85610; 96374; 96375; 99281; 99284; J2270; J2405; Q9967

== ENCOUNTER 2020-03-18 03:52 | Emergency (ER) | payer MEDICAID, SELFPAY ==
[2020-03-18 03:53] VITALS: BP 132/85; PULSE 100; RESP 20; TEMP 36.8; O2SAT 95; BMI 51.5
[2020-03-18 04:08] VITALS: BP 132/85; PULSE 73; RESP 16; O2SAT 94
--- NOTE | 2020-03-18 04:30 | W.ED.SKABFB ---
HPI - Skin/Abscess/Foreign Bdy General: Chief complaint: Skin/Abscess/Foreign Body Stated complaint: Poss Spider Bite Time Seen by Provider: 03/18/20 03:56 History of Present Illness: HPI narrative: 29-year-old female well-known to the ER. She presents with a rash to her right knee with pain. She states that she has seen a black spider with red edgar on its back. She also complains that she was vomiting right before she noticed the rash. The rash is spread. She says it is painful more than itchy. complaint: rash and insect bite/sting Onset (ago): minute(s) Tetanus up to date: unsure Location: RLE Severity: moderate Quality: burning Pain Consistency: constant Relieving factors: none Exacerbating factors: none Context: other Associated symptoms: Reports itching, nausea and vomiting; Deny fever(s) Review of Systems Const: Denies: fever(s) Card: Denies: chest pain or palpitations Resp: Denies: dyspnea GI: Reports: nausea and vomiting PFSH ED PFSH: Medical History Alcohol abuse with alcohol-induced mood disorder Essential (primary) hypertension not on any chronic treatment 09/26 Family history of alpha 1 antitrypsin deficiency Fibromyalgia Generalized anxiety disorder H/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, includes meth, heroin, others, on buprenorphine Hepatitis C antibody positive in blood Hx of abscess of skin and subcutaneous tissue right arm Major depressive disorder, recurrent, moderate Nontoxic thyroid nodule Opioid abuse Polycystic ovarian syndrome polycystic ovaries not notated on CT abdomen/pelvis 01/26 Unspecified asthma, uncomplicated onset in childhood Surgical History Hx of cholecystectomy Family History Other [id number] deficiency Drug abuse, amphetamine type Hypertension Social History Smoking and tobacco status: current every day smoker cigarettes Packs smoked per day: 1.5 Years cigarettes smoked: 15 Quit status (tobacco): considering quitting Second hand smoke exposure: Yes Smoking risk assessment/counseling performed?: Yes Alcohol intake: current Alcohol intake frequency: 3 or more drinks per day Alcohol type: hard liquor Desire information about alcohol rehabilitation?: Yes Counseling given: No Desire information about substance/drug rehabilitation?: No Counseling given: No Other details last substance use: Has used methamphetamine, heroin, pain medications. Adopted: No Caregiver/support person: No Lives independently: Yes Household members: friend(s) Housing: Manufactured/Mobile home Marital status: Single Number of children: 2 service: No Current occupational status: employed History of recent travel: No Current gender identity: Female Female Reproductive History: Date of last menstrual period: 03/18/20 Para: 2 Physical Exam Const: COMMON NORMALS: no acute distress and patient oriented x3 EXAM LIMITATIONS: behavioral limitations ORIENTATION/CONSCIOUSNESS: Yes awake, Yes oriented to person and Yes oriented to place; not oriented to time Chest: Breast/axilla inspection: Yes no chest deformity, asymmetry, normal contours, no nodules, masses, tenderness Cardio: COMMON NORMALS: regular rate RATE: regular rate Neuro: COMMON NORMALS: patient oriented x3 SENSORIUM/ORIENTATION: Yes oriented to person, Yes oriented to place and No oriented to time Skin: NARRATIVE SKIN EXAM: Erythematous papular rash over the anterior knee. There is no knee joint effusion. There is a scrape with good eschar over the anterior knee as well. There is a small blister. This may be from a insect/arachnid envenomation. We will cover the patient with antibiotics. Course Vital Signs: Vital signs: Vital Signs Temperature 98.2 F 03/18/20 03:53 Pulse Rate 73 03/18/20 04:08 Respiratory Rate 16 03/18/20 04:08 Blood Pressure 132/85 03/18/20 04:08 Pulse Oximetry 94 03/18/20 04:08 MDM - Skin/Abscess/Foreign Bdy MDM Narrative: Medical decision making narrative: Patient presents with a possible insect/arachnid envenomation to her right knee. There is no knee joint effusion. Range of motion of the knee is grossly normal. She will be allowed home on antibiotics and steroids. Discharge Plan Discharge Patient Disposition: Home Clinical Impression: Accidental spider bite Condition: Stable Prescriptions: New Medrol (Gerardo) 4 mg tablets,dose pack See Rx Instructions .ROUTE .COMPLEX Qty: 21 RF: 0 doxycycline hyclate 100 mg capsule 100 mg PO BID 7 Days Qty: 14 RF: 0 No Action (DME) nebulizer accessories Kit See Rx Instructions .ROUTE .MEDSUPPLY Qty: 1 RF: 0 sulfamethoxazole-trimethoprim [Bactrim DS] 800-160 mg tablet 1 tab PO BID 7 Days Qty: 14 RF: 0 fluconazole [Diflucan] 150 mg tablet 150 mg PO ONCE Qty: 1 RF: 0 multivitamin with folic acid [Thera] 400 mcg Tablet 1 tab PO DAILY 30 Days Qty: 30 RF: 1 albuterol sulfate 2.5 mg /3 mL (0.083 %) solution for nebulization 2.5 mg INHALATION QID PRN (Reason: shortness of breath or wheezing) 14 Days Qty: 75 RF: 2 epinephrine [EpiPen 2-Gerardo] 0.3 mg/0.3 mL auto-injector 0.3 mg IM Q10M PRN (Reason: anaphylaxis) 30 Days Qty: 2 RF: 1 Pulmicort Flexhaler 180 mcg/actuation Aerosol Powdr Breath Activated 1 inh INHALATION DAILY RF: 0 venlafaxine 150 mg Capsule,Extended Release 24hr 150 mg PO DAILY 30 Days Qty: 30 RF: 1 prazosin 1 mg capsule 1 mg PO BEDTIME 30 Days Qty: 30 RF: 1 trazodone 150 mg Tablet 150 mg PO BEDTIME 30 Days Qty: 30 RF: 1 folic acid 1 mg Tablet 1 mg PO DAILY 30 Days Qty: 30 RF: 1 fluoxetine [Prozac] 20 mg Capsule 20 mg PO DAILY 30 Days Qty: 30 RF: 1 metformin 500 mg tablet extended release 24hr 1,000 mg PO DAILY 30 Days Qty: 60 RF: 1 thiamine mononitrate (vit B1) [Vitamin B-1 (mononitrate)] 100 mg Tablet 100 mg PO DAILY 30 Days Qty: 30 RF: 1 Discharge Orders: Discharge ED (Routine); Ordered 03/18/20 Ordered By: Ray Martinez Referrals: David Villar, PRACTICE ADMINISTRATOR-C [Primary Care Provider] - Discharge Diet: Advance as tolerated Discharge Activity: Limit activity as instructed Patient Instructions: Insect Bite or Sting (ED) Activity Restrictions/Additional Instructions: Return for fever greater than 100 despite 2-3 doses of antibiotics, worsening streaking or redness despite 2-3 doses of antibiotics, significant knee joint swelling with inability to bear weight other concerning symptoms Coding Level of Care Code ED Railroad Inspector for Chg Fwd Exam Expanded Problem Focused
[2020-03-18] MEDS: doxycycline 100 mg Tablet PO (04:54)
[2020-03-18] MEDS: predniSONE 20 mg Tablet 40 MG PO (04:54)
[2020-03-18] MEDS: doxycycline 100 mg Tablet 200 MG PO (04:54)
[2020-03-18 04:59] VITALS: BP 132/81; PULSE 98; RESP 17; TEMP 36.8; O2SAT 94
--- NOTE | 2020-03-18 05:01 | PC.NURSE ---
2 tablets doxycycline 100mg PO to take at home per physician instructions.
== END 2020-03-18 05:00 | disposition home or self-care (01) ==
PROVIDERS: Emergency Provider Emergency Medicine; PCP Nurse Practitioner
DX: T63.301A Toxic effect of unspecified spider venom, accidental (unintentional), initial encounter (principal); I10 Essential (primary) hypertension; Z86.19 Personal history of other infectious and parasitic diseases; F17.210 Nicotine dependence, cigarettes, uncomplicated
CPT/HCPCS: 12345; 99281; 99283; J7512

== ENCOUNTER 2020-03-23 19:53 | Inpatient (IN) | payer MEDICAID, SELFPAY ==
--- NOTE | 2020-03-23 20:42 | ED_ITS ---
Documented by User: Carmen Robles MD, MSM 03/24/20 00:06 HPI - Psych General: Chief Complaint: Psychiatric Symptoms Stated Complaint: etoh, si Time Seen by Provider: 03/23/20 20:19 Source: patient Mode of arrival: EMS Limitations: no limitations History of Present Illness: HPI Narrative: Patient is a 29-year-old female is an alcoholic and states that she drinks a half gallon of vodka daily. She presents to the ED with complaints of suicidal ideation. She has been drinking today as well. She does not have a plan. complaint: suicidal ideation Duration: constant History of same: Yes Exacerbating factors: alcohol Context: recent alcohol abuse Associated symptoms: Reports suicidal ideation If self harm: admits thoughts of self harm Review of Systems General: Reports: 10 or more systems reviewed and unremarkable except in HPI and below Const: Denies: fever(s), chills or body aches Eyes: Denies: change in vision or blurry vision ENMT: Denies: throat pain, enlarged tonsils, odynophagia, hoarseness, mouth pain or swelling of lips/tongue Card: Denies: palpitations, irregular heart rhythm, edema or swelling of feet/ankles Resp: Denies: dyspnea, productive cough or non-productive cough GI: Denies: abdominal pain, nausea or vomiting : Denies: flank pain, difficulty voiding, dysuria, urinary frequency, urinary urgency or urinary hesitancy Musc: Denies: neck pain, back pain or extremity swelling Skin/Breast: Denies: rash, pruritus or erythema Neuro: Denies: headache(s), numbness in extremities or weakness in extremities Psych: Reports: suicidal ideation Endo: Denies: polyuria, polydipsia or tired all the time [facility] ED PFSH: Medical History (Updated 03/24/20 @ 16:33 by Jeyson Amador DO) Alcohol abuse with alcohol-induced mood disorder Essential (primary) hypertension not on any chronic treatment 09/26 Family history of alpha 1 antitrypsin deficiency Fibromyalgia Generalized anxiety disorder H/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, includes meth, heroin, others, on buprenorphine Hepatitis C antibody positive in blood Hx of abscess of skin and subcutaneous tissue right arm Major depressive disorder, recurrent, moderate Nontoxic thyroid nodule Opioid abuse Polycystic ovarian syndrome polycystic ovaries not notated on CT abdomen/pelvis 01/26 Tobacco dependency Unspecified asthma, uncomplicated onset in childhood Surgical History Hx of cholecystectomy Family History Other [id number] deficiency Drug abuse, amphetamine type Hypertension Social History Smoking and tobacco status: current every day smoker cigarettes Packs smoked per day: 1.5 Years cigarettes smoked: 15 Quit status (tobacco): considering quitting Second hand smoke exposure: Yes Smoking risk assessment/counseling performed?: Yes Alcohol intake: current Alcohol intake frequency: 3 or more drinks per day Alcohol type: hard liquor Desire information about alcohol rehabilitation?: Yes Counseling given: No Desire information about substance/drug rehabilitation?: No Counseling given: No Other details last substance use: Has used methamphetamine, heroin, pain medications. Adopted: No Caregiver/support person: No Lives independently: Yes Household members: friend(s) Housing: Manufactured/Mobile home Marital status: Single Number of children: 2 service: No Current occupational status: employed History of recent travel: No Current gender identity: Female Female Reproductive History: Date of last menstrual period: 03/18/20 Para: 2 Physical Exam Const: COMMON NORMALS: no acute distress, average body habitus, patient oriented x3, no limitations, healthy appearing, alert and well nourished HENMT: COMMON NORMALS: normocephalic, atraumatic and moist oral mucous membranes HEAD & SCALP: normocephalic and atraumatic Neck/C-Spine: COMMON NORMALS: no meningeal signs and no JVD Resp: COMMON NORMALS: normal respiratory effort, No retractions, No use of accessory muscles, clear to auscultation bilaterally and percussion normal AUSCULTATION: clear to auscultation bilaterally PERCUSSION: percussion normal Cardio: COMMON NORMALS: no JVD, regular rate, regular rhythm, S1 normal heart sound present, S2 normal heart sound present, No gallops present (Cardio), No clicks present (Cardio), No murmurs present (Cardio), No rub (Cardio) and Peripheral pulses 2+ throughout RATE: regular rate RHYTHM: regular rhythm HEART SOUNDS: S1 normal heart sound present and S2 normal heart sound present PERIPHERAL PULSES: Peripheral pulses 2+ throughout GI: COMMON NORMALS: Normal to inspection, nondistended, normoactive bowel sounds present, Soft to palpation, non-tender, No hepatosplenomegaly present, no masses and no bruits PALPATION: Yes Soft to palpation and Yes No hepatosplenomegaly present Neuro: COMMON NORMALS: patient oriented x3 SENSORIUM/ORIENTATION: Yes alert MENINGEAL SIGNS: Yes no meningeal signs Skin: COMMON NORMALS: no rashes or lesions noted, no wounds, turgor normal, no jaundice, no petechiae and no mottling GENERAL SKIN EXAM: no rashes or lesions noted and turgor normal MDM - Psych Lab Data: Labs: Lab Results 03/23/20 03/23/20 03/23/20 Range/Units 20:35 20:35 20:35 WBC (4.0-10.0) 10^3/ uL RBC (4.1-5.3) 10^6/u L Hgb (11.5-15.3) g/dL Hct (37.0-47.0) % MCV (81-99) fL MCH (28.0-34.0) pg MCHC (30.0-36.0) g/dL RDW (12.1-15.1) % Plt Count (130-400) 10^3/c mm MPV (7.4-10.4) fL Neut % (Auto) % Lymph % (Auto) % [place] % (Auto) % Eos % (Auto) % Baso % (Auto) % Neut # (Auto) (1.8-7.7) 10^3/u L Lymph # (Auto) (0.8-4.8) 10^3/u L [place] # (Auto) (0.2-0.9) 10^3/u L Eos # (Auto) (0.0-0.8) 10^3/u L Baso # (Auto) (0.0-0.1) 10^3/u L Nucleated RBC % (a uto) % Nucleated RBCs # /100WBC Sodium (136-145) mmol/L Potassium (3.5-5.1) mmol/L Chloride (98-107) mmol/L Carbon Dioxide (22-29) mmol/L Anion Gap (5-19) BUN (6-20) mg/dL Creatinine (0.5-0.9) mg/dL GFR Calculation (90-130) mL/min Glucose (65-115) mg/dL Calculated Osmolal ity (285-295) mOsm/k g Calcium (8.5-10.5) mg/dL Magnesium (1.7-2.3) mg/dL Total Bilirubin (0.15-1.2) mg/dL AST (0-32) U/L ALT (0-33) U/L Alkaline Phosphata se (35-105) IU/L Total Protein (6.6-8.7) g/dL Albumin (3.5-5.2) g/dL Globulin (1.3-4.6) g/dL HCG, Qual Negative (Negative) Urine Color Yellow (Yellow) Urine Appearance Clear (CLEAR) Urine pH 6.0 (5-7) Ur Specific Gravit y 1.005 (1.005-1.030) Urine Protein Neg (Negative) Urine Glucose (UA) Norm (Normal) Urine Ketones Negative (Negative) Urine Blood 3+ H (Negative) Urine Nitrate Negative (Negative) Urine Bilirubin Neg (Negative) Urine Urobilinogen Norm (Negative) mg/dL Ur Leukocyte [place] ase Negative (Negative) Urine RBC 0-4 H (0-2) /hpf Urine WBC None (0-5) /hpf Ur Squamous Epith Cells 10-15 H (0-5) /hpf Amorphous Sediment Not Reportable Urine Bacteria 1+ H (NONE) /hpf Salicylates (3-10) mg/dL Urine Opiates Scre en Negative (Negative) ng/mL Acetaminophen (10-30) ug/mL Ur Barbiturates Sc reen Negative (Negative) ng/mL Ur Phencyclidine S crn Negative (Negative) ng/mL Ur Amphetamines Sc reen Negative (Negative) ng/mL U Benzodiazepines Scrn Negative (Negative) ng/mL Urine Cocaine Scre en Negative (Negative) ng/mL U Marijuana (THC) Screen Negative (Negative) ng/mL Ethyl Alcohol (0-10) mg/dL 03/23/20 03/23/20 03/24/20 Range/Units 20:50 20:50 02:50 WBC 4.6 (4.0-10.0) 10^3/ uL RBC 4.40 (4.1-5.3) 10^6/u L Hgb 14.5 (11.5-15.3) g/dL Hct 44.3 (37.0-47.0) % MCV 100.7 H (81-99) fL MCH 33.0 (28.0-34.0) pg MCHC 32.7 (30.0-36.0) g/dL RDW 14.6 (12.1-15.1) % Plt Count 82 L (130-400) 10^3/c mm MPV 10.0 (7.4-10.4) fL Neut % (Auto) 27.4 % Lymph % (Auto) 63.3 % [place] % (Auto) 4.1 % Eos % (Auto) 4.8 % Baso % (Auto) 0.4 % Neut # (Auto) 1.26 L (1.8-7.7) 10^3/u L Lymph # (Auto) 2.9 (0.8-4.8) 10^3/u L [place] # (Auto) 0.2 (0.2-0.9) 10^3/u L Eos # (Auto) 0.2 (0.0-0.8) 10^3/u L Baso # (Auto) 0.0 (0.0-0.1) 10^3/u L Nucleated RBC % (a uto) 0 % Nucleated RBCs # 0.0 /100WBC Sodium 142 (136-145) mmol/L Potassium 3.3 L (3.5-5.1) mmol/L Chloride 101 (98-107) mmol/L Carbon Dioxide 30 H (22-29) mmol/L Anion Gap 14.3 (5-19) BUN 6 (6-20) mg/dL Creatinine 0.7 (0.5-0.9) mg/dL GFR Calculation 98.3 (90-130) mL/min Glucose 115 (65-115) mg/dL Calculated Osmolal ity 293 (285-295) mOsm/k g Calcium 8.4 L (8.5-10.5) mg/dL Magnesium 1.5 L (1.7-2.3) mg/dL Total Bilirubin 0.4 (0.15-1.2) mg/dL AST 279 H (0-32) U/L ALT 128 H (0-33) U/L Alkaline Phosphata se 100 (35-105) IU/L Total Protein 7.3 (6.6-8.7) g/dL Albumin 3.9 (3.5-5.2) g/dL Globulin 3.4 (1.3-4.6) g/dL HCG, Qual (Negative) Urine Color (Yellow) Urine Appearance (CLEAR) Urine pH (5-7) Ur Specific Gravit y (1.005-1.030) Urine Protein (Negative) Urine Glucose (UA) (Normal) Urine Ketones (Negative) Urine Blood (Negative) Urine Nitrate (Negative) Urine Bilirubin (Negative) Urine Urobilinogen (Negative) mg/dL Ur Leukocyte [place] ase (Negative) Urine RBC (0-2) /hpf Urine WBC (0-5) /hpf Ur Squamous Epith Cells (0-5) /hpf Amorphous Sediment Urine Bacteria (NONE) /hpf Salicylates < 0.3 L (3-10) mg/dL Urine Opiates Scre en (Negative) ng/mL Acetaminophen < 5.0 L (10-30) ug/mL Ur Barbiturates Sc reen (Negative) ng/mL Ur Phencyclidine S crn (Negative) ng/mL Ur Amphetamines Sc reen (Negative) ng/mL U Benzodiazepines Scrn (Negative) ng/mL Urine Cocaine Scre en (Negative) ng/mL U Marijuana (THC) Screen (Negative) ng/mL Ethyl Alcohol 533 H* (0-10) mg/dL 03/24/20 Range/Units 02:56 WBC (4.0-10.0) 10^3/ uL RBC (4.1-5.3) 10^6/u L Hgb (11.5-15.3) g/dL Hct (37.0-47.0) % MCV (81-99) fL MCH (28.0-34.0) pg MCHC (30.0-36.0) g/dL RDW (12.1-15.1) % Plt Count (130-400) 10^3/c mm MPV (7.4-10.4) fL Neut % (Auto) % Lymph % (Auto) % [place] % (Auto) % Eos % (Auto) % Baso % (Auto) % Neut # (Auto) (1.8-7.7) 10^3/u L Lymph # (Auto) (0.8-4.8) 10^3/u L [place] # (Auto) (0.2-0.9) 10^3/u L Eos # (Auto) (0.0-0.8) 10^3/u L Baso # (Auto) (0.0-0.1) 10^3/u L Nucleated RBC % (a uto) % Nucleated RBCs # /100WBC Sodium (136-145) mmol/L Potassium (3.5-5.1) mmol/L Chloride (98-107) mmol/L Carbon Dioxide (22-29) mmol/L Anion Gap (5-19) BUN (6-20) mg/dL Creatinine (0.5-0.9) mg/dL GFR Calculation (90-130) mL/min Glucose (65-115) mg/dL Calculated Osmolal ity (285-295) mOsm/k g Calcium (8.5-10.5) mg/dL Magnesium (1.7-2.3) mg/dL Total Bilirubin (0.15-1.2) mg/dL AST (0-32) U/L ALT (0-33) U/L Alkaline Phosphata se (35-105) IU/L Total Protein (6.6-8.7) g/dL Albumin (3.5-5.2) g/dL Globulin (1.3-4.6) g/dL HCG, Qual (Negative) Urine Color (Yellow) Urine Appearance (CLEAR) Urine pH (5-7) Ur Specific Gravit y (1.005-1.030) Urine Protein (Negative) Urine Glucose (UA) (Normal) Urine Ketones (Negative) Urine Blood (Negative) Urine Nitrate (Negative) Urine Bilirubin (Negative) Urine Urobilinogen (Negative) mg/dL Ur Leukocyte Louisa ase (Negative) Urine RBC (0-2) /hpf Urine WBC (0-5) /hpf Ur Squamous Epith Cells (0-5) /hpf Amorphous Sediment Urine Bacteria (NONE) /hpf Salicylates (3-10) mg/dL Urine Opiates Scre en (Negative) ng/mL Acetaminophen (10-30) ug/mL Ur Barbiturates Sc reen (Negative) ng/mL Ur Phencyclidine S crn (Negative) ng/mL Ur Amphetamines Sc reen (Negative) ng/mL U Benzodiazepines Scrn (Negative) ng/mL Urine Cocaine Scre en (Negative) ng/mL U Marijuana (THC) Screen (Negative) ng/mL Ethyl Alcohol 312 H* (0-10) mg/dL Discharge Plan Discharge Patient Disposition: Admitted As Inpatient Admit Provider: Zain Reed Clinical Impression: Suicidal ideation, Alcohol dependence with withdrawal, ETOH abuse, Buprenorphine dependence, Essential (primary) hypertension Condition: Stable Sign Out Sign Out Data: Patient Sign Out occurred on 03/24/20 at 09:22. Patient's care was discussed, and care was transferred from to Jeyson Amador DO. Coding Level of Care Code ED Iron Guardrail Installer for Chg Fwd Exam Detailed Documented by User: Niranjan Martinez MD 03/24/20 05:36 HPI - Psych General: Chief Complaint: Psychiatric Symptoms Stated Complaint: etoh, si Time Seen by Provider: 03/23/20 20:19 PFSH ED PFSH: Medical History (Updated 03/24/20 @ 16:33 by Jeyson Amador DO) Alcohol abuse with alcohol-induced mood disorder Essential (primary) hypertension not on any chronic treatment 09/26 Family history of alpha 1 antitrypsin deficiency Fibromyalgia Generalized anxiety disorder H/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, includes meth, heroin, others, on buprenorphine Hepatitis C antibody positive in blood Hx of abscess of skin and subcutaneous tissue right arm Major depressive disorder, recurrent, moderate Nontoxic thyroid nodule Opioid abuse Polycystic ovarian syndrome polycystic ovaries not notated on CT abdomen/pelvis 01/26 Tobacco dependency Unspecified asthma, uncomplicated onset in childhood Surgical History Hx of cholecystectomy Family History Other [id number] deficiency Drug abuse, amphetamine type Hypertension Social History Smoking and tobacco status: current every day smoker cigarettes Packs smoked per day: 1.5 Years cigarettes smoked: 15 Quit status (tobacco): considering quitting Second hand smoke exposure: Yes Smoking risk assessment/counseling performed?: Yes Alcohol intake: current Alcohol intake frequency: 3 or more drinks per day Alcohol type: hard liquor Desire information about alcohol rehabilitation?: Yes Counseling given: No Desire information about substance/drug rehabilitation?: No Counseling given: No Other details last substance use: Has used methamphetamine, heroin, pain medications. Adopted: No Caregiver/support person: No Lives independently: Yes Household members: friend(s) Housing: Manufactured/Mobile home Marital status: Single Number of children: 2 service: No Current occupational status: employed History of recent travel: No Current gender identity: Female MDM - Psych MDM Narrative: Medical decision making narrative: Awoke patient up at 530 and spoke to her. She states she still like to be admitted to the psych unit she is depressed and wants alcohol withdrawal. I spoke to Dr. Loyd who knows the patient very well he is going to come and see and evaluate the patient in the ER. Lab Data: Labs: Lab Results 03/23/20 03/23/20 03/23/20 Range/Units 20:35 20:35 20:35 WBC (4.0-10.0) 10^3/ uL RBC (4.1-5.3) 10^6/u L Hgb (11.5-15.3) g/dL Hct (37.0-47.0) % MCV (81-99) fL MCH (28.0-34.0) pg MCHC (30.0-36.0) g/dL RDW (12.1-15.1) % Plt Count (130-400) 10^3/c mm MPV (7.4-10.4) fL Neut % (Auto) % Lymph % (Auto) % [place] % (Auto) % Eos % (Auto) % Baso % (Auto) % Neut # (Auto) (1.8-7.7) 10^3/u L Lymph # (Auto) (0.8-4.8) 10^3/u L [place] # (Auto) (0.2-0.9) 10^3/u L Eos # (Auto) (0.0-0.8) 10^3/u L Baso # (Auto) (0.0-0.1) 10^3/u L Nucleated RBC % (a uto) % Nucleated RBCs # /100WBC Sodium (136-145) mmol/L Potassium (3.5-5.1) mmol/L Chloride (98-107) mmol/L Carbon Dioxide (22-29) mmol/L Anion Gap (5-19) BUN (6-20) mg/dL Creatinine (0.5-0.9) mg/dL GFR Calculation (90-130) mL/min Glucose (65-115) mg/dL Calculated Osmolal ity (285-295) mOsm/k g Calcium (8.5-10.5) mg/dL Magnesium (1.7-2.3) mg/dL Total Bilirubin (0.15-1.2) mg/dL AST (0-32) U/L ALT (0-33) U/L Alkaline Phosphata se (35-105) IU/L Total Protein (6.6-8.7) g/dL Albumin (3.5-5.2) g/dL Globulin (1.3-4.6) g/dL HCG, Qual Negative (Negative) Urine Color Yellow (Yellow) Urine Appearance Clear (CLEAR) Urine pH 6.0 (5-7) Ur Specific Gravit y 1.005 (1.005-1.030) Urine Protein Neg (Negative) Urine Glucose (UA) Norm (Normal) Urine Ketones Negative (Negative) Urine Blood 3+ H (Negative) Urine Nitrate Negative (Negative) Urine Bilirubin Neg (Negative) Urine Urobilinogen Norm (Negative) mg/dL Ur Leukocyte Louisa ase Negative (Negative) Urine RBC 0-4 H (0-2) /hpf Urine WBC None (0-5) /hpf Ur Squamous Epith Cells 10-15 H (0-5) /hpf Amorphous Sediment Not Reportable Urine Bacteria 1+ H (NONE) /hpf Salicylates (3-10) mg/dL Urine Opiates Scre en Negative (Negative) ng/mL Acetaminophen (10-30) ug/mL Ur Barbiturates Sc reen Negative (Negative) ng/mL Ur Phencyclidine S crn Negative (Negative) ng/mL Ur Amphetamines Sc reen Negative (Negative) ng/mL U Benzodiazepines Scrn Negative (Negative) ng/mL Urine Cocaine Scre en Negative (Negative) ng/mL U Marijuana (THC) Screen Negative (Negative) ng/mL Ethyl Alcohol (0-10) mg/dL 03/23/20 03/23/20 03/24/20 Range/Units 20:50 20:50 02:50 WBC 4.6 (4.0-10.0) 10^3/ uL RBC 4.40 (4.1-5.3) 10^6/u L Hgb 14.5 (11.5-15.3) g/dL Hct 44.3 (37.0-47.0) % MCV 100.7 H (81-99) fL MCH 33.0 (28.0-34.0) pg MCHC 32.7 (30.0-36.0) g/dL RDW 14.6 (12.1-15.1) % Plt Count 82 L (130-400) 10^3/c mm MPV 10.0 (7.4-10.4) fL Neut % (Auto) 27.4 % Lymph % (Auto) 63.3 % [place] % (Auto) 4.1 % Eos % (Auto) 4.8 % Baso % (Auto) 0.4 % Neut # (Auto) 1.26 L (1.8-7.7) 10^3/u L Lymph # (Auto) 2.9 (0.8-4.8) 10^3/u L [place] # (Auto) 0.2 (0.2-0.9) 10^3/u L Eos # (Auto) 0.2 (0.0-0.8) 10^3/u L Baso # (Auto) 0.0 (0.0-0.1) 10^3/u L Nucleated RBC % (a uto) 0 % Nucleated RBCs # 0.0 /100WBC Sodium 142 (136-145) mmol/L Potassium 3.3 L (3.5-5.1) mmol/L Chloride 101 (98-107) mmol/L Carbon Dioxide 30 H (22-29) mmol/L Anion Gap 14.3 (5-19) BUN 6 (6-20) mg/dL Creatinine 0.7 (0.5-0.9) mg/dL GFR Calculation 98.3 (90-130) mL/min Glucose 115 (65-115) mg/dL Calculated Osmolal ity 293 (285-295) mOsm/k g Calcium 8.4 L (8.5-10.5) mg/dL Magnesium 1.5 L (1.7-2.3) mg/dL Total Bilirubin 0.4 (0.15-1.2) mg/dL AST 279 H (0-32) U/L ALT 128 H (0-33) U/L Alkaline Phosphata se 100 (35-105) IU/L Total Protein 7.3 (6.6-8.7) g/dL Albumin 3.9 (3.5-5.2) g/dL Globulin 3.4 (1.3-4.6) g/dL HCG, Qual (Negative) Urine Color (Yellow) Urine Appearance (CLEAR) Urine pH (5-7) Ur Specific Gravit y (1.005-1.030) Urine Protein (Negative) Urine Glucose (UA) (Normal) Urine Ketones (Negative) Urine Blood (Negative) Urine Nitrate (Negative) Urine Bilirubin (Negative) Urine Urobilinogen (Negative) mg/dL Ur Leukocyte [place] ase (Negative) Urine RBC (0-2) /hpf Urine WBC (0-5) /hpf Ur Squamous Epith Cells (0-5) /hpf Amorphous Sediment Urine Bacteria (NONE) /hpf Salicylates < 0.3 L (3-10) mg/dL Urine Opiates Scre en (Negative) ng/mL Acetaminophen < 5.0 L (10-30) ug/mL Ur Barbiturates Sc reen (Negative) ng/mL Ur Phencyclidine S crn (Negative) ng/mL Ur Amphetamines Sc reen (Negative) ng/mL U Benzodiazepines Scrn (Negative) ng/mL Urine Cocaine Scre en (Negative) ng/mL U Marijuana (THC) Screen (Negative) ng/mL Ethyl Alcohol 533 H* (0-10) mg/dL 03/24/20 Range/Units 02:56 WBC (4.0-10.0) 10^3/ uL RBC (4.1-5.3) 10^6/u L Hgb (11.5-15.3) g/dL Hct (37.0-47.0) % MCV (81-99) fL MCH (28.0-34.0) pg MCHC (30.0-36.0) g/dL RDW (12.1-15.1) % Plt Count (130-400) 10^3/c mm MPV (7.4-10.4) fL Neut % (Auto) % Lymph % (Auto) % [place] % (Auto) % Eos % (Auto) % Baso % (Auto) % Neut # (Auto) (1.8-7.7) 10^3/u L Lymph # (Auto) (0.8-4.8) 10^3/u L [place] # (Auto) (0.2-0.9) 10^3/u L Eos # (Auto) (0.0-0.8) 10^3/u L Baso # (Auto) (0.0-0.1) 10^3/u L Nucleated RBC % (a uto) % Nucleated RBCs # /100WBC Sodium (136-145) mmol/L Potassium (3.5-5.1) mmol/L Chloride (98-107) mmol/L Carbon Dioxide (22-29) mmol/L Anion Gap (5-19) BUN (6-20) mg/dL Creatinine (0.5-0.9) mg/dL GFR Calculation (90-130) mL/min Glucose (65-115) mg/dL Calculated Osmolal ity (285-295) mOsm/k g Calcium (8.5-10.5) mg/dL Magnesium (1.7-2.3) mg/dL Total Bilirubin (0.15-1.2) mg/dL AST (0-32) U/L ALT (0-33) U/L Alkaline Phosphata se (35-105) IU/L Total Protein (6.6-8.7) g/dL Albumin (3.5-5.2) g/dL Globulin (1.3-4.6) g/dL HCG, Qual (Negative) Urine Color (Yellow) Urine Appearance (CLEAR) Urine pH (5-7) Ur Specific Gravit y (1.005-1.030) Urine Protein (Negative) Urine Glucose (UA) (Normal) Urine Ketones (Negative) Urine Blood (Negative) Urine Nitrate (Negative) Urine Bilirubin (Negative) Urine Urobilinogen (Negative) mg/dL Ur Leukocyte Louisa ase (Negative) Urine RBC (0-2) /hpf Urine WBC (0-5) /hpf Ur Squamous Epith Cells (0-5) /hpf Amorphous Sediment Urine Bacteria (NONE) /hpf Salicylates (3-10) mg/dL Urine Opiates Scre en (Negative) ng/mL Acetaminophen (10-30) ug/mL Ur Barbiturates Sc reen (Negative) ng/mL Ur Phencyclidine S crn (Negative) ng/mL Ur Amphetamines Sc reen (Negative) ng/mL U Benzodiazepines Scrn (Negative) ng/mL Urine Cocaine Scre en (Negative) ng/mL U Marijuana (THC) Screen (Negative) ng/mL Ethyl Alcohol 312 H* (0-10) mg/dL Discharge Plan Discharge Patient Disposition: Admitted As Inpatient Admit Provider: Zain Reed Clinical Impression: Suicidal ideation, Alcohol dependence with withdrawal, ETOH abuse, Buprenorphine dependence, Essential (primary) hypertension Condition: Stable Sign Out Sign Out Data: Patient Sign Out occurred on 03/24/20 at 09:22. Patient's care was discussed, and care was transferred from to Jeyson Amador DO. Coding Level of Care Code ED Iron Guardrail Installer for Chg Fwd Exam Detailed Documented by User: Jeyson Amador DO 03/24/20 16:33 HPI - Psych General: Chief Complaint: Psychiatric Symptoms Stated Complaint: etoh, si Time Seen by Provider: 03/23/20 20:19 PFSH ED PFSH: Medical History (Updated 03/24/20 @ 16:33 by Jeyson Amador DO) Alcohol abuse with alcohol-induced mood disorder Essential (primary) hypertension not on any chronic treatment 09/26 Family history of alpha 1 antitrypsin deficiency Fibromyalgia Generalized anxiety disorder H/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, includes meth, heroin, others, on buprenorphine Hepatitis C antibody positive in blood Hx of abscess of skin and subcutaneous tissue right arm Major depressive disorder, recurrent, moderate Nontoxic thyroid nodule Opioid abuse Polycystic ovarian syndrome polycystic ovaries not notated on CT abdomen/pelvis 01/26 Tobacco dependency Unspecified asthma, uncomplicated onset in childhood Surgical History Hx of cholecystectomy Family History Other Rizie-2-cagfqqnszvt deficiency Drug abuse, amphetamine type Hypertension Social History Smoking and tobacco status: current every day smoker cigarettes Packs smoked per day: 1.5 Years cigarettes smoked: 15 Quit status (tobacco): considering quitting Second hand smoke exposure: Yes Smoking risk assessment/counseling performed?: Yes Alcohol intake: current Alcohol intake frequency: 3 or more drinks per day Alcohol type: hard liquor Desire information about alcohol rehabilitation?: Yes Counseling given: No Desire information about substance/drug rehabilitation?: No Counseling given: No Other details last substance use: Has used methamphetamine, heroin, pain medications. Adopted: No Caregiver/support person: No Lives independently: Yes Household members: friend(s) Housing: Manufactured/Mobile home Marital status: Single Number of children: 2 service: No Current occupational status: employed History of recent travel: No Current gender identity: Female MDM - Psych MDM Narrative: Medical decision making narrative: Initially psych seeing the patient for did not go the medical floor. I talked to the hospitalist reviewed the chart she has been admitted multiple times here to psych and discharged in less than a day or 2 with no, significant consequences no documentation of previous withdrawal seizures. Patient states she had a withdrawal seizure 2 days ago. After reviewing we discussed with hospitalist psychiatrist pilar Freeman ultimately decided to admit her to the [facility] with medical consult for management will per keep her on his [facility] protocol. Lab Data: Labs: Lab Results 03/23/20 03/23/20 03/23/20 Range/Units 20:35 20:35 20:35 WBC (4.0-10.0) 10^3/ uL RBC (4.1-5.3) 10^6/u L Hgb (11.5-15.3) g/dL Hct (37.0-47.0) % MCV (81-99) fL MCH (28.0-34.0) pg MCHC (30.0-36.0) g/dL RDW (12.1-15.1) % Plt Count (130-400) 10^3/c mm MPV (7.4-10.4) fL Neut % (Auto) % Lymph % (Auto) % [place] % (Auto) % Eos % (Auto) % Baso % (Auto) % Neut # (Auto) (1.8-7.7) 10^3/u L Lymph # (Auto) (0.8-4.8) 10^3/u L [place] # (Auto) (0.2-0.9) 10^3/u L Eos # (Auto) (0.0-0.8) 10^3/u L Baso # (Auto) (0.0-0.1) 10^3/u L Nucleated RBC % (a uto) % Nucleated RBCs # /100WBC Sodium (136-145) mmol/L Potassium (3.5-5.1) mmol/L Chloride (98-107) mmol/L Carbon Dioxide (22-29) mmol/L Anion Gap (5-19) BUN (6-20) mg/dL Creatinine (0.5-0.9) mg/dL GFR Calculation (90-130) mL/min Glucose (65-115) mg/dL Calculated Osmolal ity (285-295) mOsm/k g Calcium (8.5-10.5) mg/dL Magnesium (1.7-2.3) mg/dL Total Bilirubin (0.15-1.2) mg/dL AST (0-32) U/L ALT (0-33) U/L Alkaline Phosphata se (35-105) IU/L Total Protein (6.6-8.7) g/dL Albumin (3.5-5.2) g/dL Globulin (1.3-4.6) g/dL HCG, Qual Negative (Negative) Urine Color Yellow (Yellow) Urine Appearance Clear (CLEAR) Urine pH 6.0 (5-7) Ur Specific Gravit y 1.005 (1.005-1.030) Urine Protein Neg (Negative) Urine Glucose (UA) Norm (Normal) Urine Ketones Negative (Negative) Urine Blood 3+ H (Negative) Urine Nitrate Negative (Negative) Urine Bilirubin Neg (Negative) Urine Urobilinogen Norm (Negative) mg/dL Ur Leukocyte Louisa ase Negative (Negative) Urine RBC 0-4 H (0-2) /hpf Urine WBC None (0-5) /hpf Ur Squamous Epith Cells 10-15 H (0-5) /hpf Amorphous Sediment Not Reportable Urine Bacteria 1+ H (NONE) /hpf Salicylates (3-10) mg/dL Urine Opiates Scre en Negative (Negative) ng/mL Acetaminophen (10-30) ug/mL Ur Barbiturates Sc reen Negative (Negative) ng/mL Ur Phencyclidine S crn Negative (Negative) ng/mL Ur Amphetamines Sc reen Negative (Negative) ng/mL U Benzodiazepines Scrn Negative (Negative) ng/mL Urine Cocaine Scre en Negative (Negative) ng/mL U Marijuana (THC) Screen Negative (Negative) ng/mL Ethyl Alcohol (0-10) mg/dL 03/23/20 03/23/20 03/24/20 Range/Units 20:50 20:50 02:50 WBC 4.6 (4.0-10.0) 10^3/ uL RBC 4.40 (4.1-5.3) 10^6/u L Hgb 14.5 (11.5-15.3) g/dL Hct 44.3 (37.0-47.0) % MCV 100.7 H (81-99) fL MCH 33.0 (28.0-34.0) pg MCHC 32.7 (30.0-36.0) g/dL RDW 14.6 (12.1-15.1) % Plt Count 82 L (130-400) 10^3/c mm MPV 10.0 (7.4-10.4) fL Neut % (Auto) 27.4 % Lymph % (Auto) 63.3 % [place] % (Auto) 4.1 % Eos % (Auto) 4.8 % Baso % (Auto) 0.4 % Neut # (Auto) 1.26 L (1.8-7.7) 10^3/u L Lymph # (Auto) 2.9 (0.8-4.8) 10^3/u L [place] # (Auto) 0.2 (0.2-0.9) 10^3/u L Eos # (Auto) 0.2 (0.0-0.8) 10^3/u L Baso # (Auto) 0.0 (0.0-0.1) 10^3/u L Nucleated RBC % (a uto) 0 % Nucleated RBCs # 0.0 /100WBC Sodium 142 (136-145) mmol/L Potassium 3.3 L (3.5-5.1) mmol/L Chloride 101 (98-107) mmol/L Carbon Dioxide 30 H (22-29) mmol/L Anion Gap 14.3 (5-19) BUN 6 (6-20) mg/dL Creatinine 0.7 (0.5-0.9) mg/dL GFR Calculation 98.3 (90-130) mL/min Glucose 115 (65-115) mg/dL Calculated Osmolal ity 293 (285-295) mOsm/k g Calcium 8.4 L (8.5-10.5) mg/dL Magnesium 1.5 L (1.7-2.3) mg/dL Total Bilirubin 0.4 (0.15-1.2) mg/dL AST 279 H (0-32) U/L ALT 128 H (0-33) U/L Alkaline Phosphata se 100 (35-105) IU/L Total Protein 7.3 (6.6-8.7) g/dL Albumin 3.9 (3.5-5.2) g/dL Globulin 3.4 (1.3-4.6) g/dL HCG, Qual (Negative) Urine Color (Yellow) Urine Appearance (CLEAR) Urine pH (5-7) Ur Specific Gravit y (1.005-1.030) Urine Protein (Negative) Urine Glucose (UA) (Normal) Urine Ketones (Negative) Urine Blood (Negative) Urine Nitrate (Negative) Urine Bilirubin (Negative) Urine Urobilinogen (Negative) mg/dL Ur Leukocyte Louisa ase (Negative) Urine RBC (0-2) /hpf Urine WBC (0-5) /hpf Ur Squamous Epith Cells (0-5) /hpf Amorphous Sediment Urine Bacteria (NONE) /hpf Salicylates < 0.3 L (3-10) mg/dL Urine Opiates Scre en (Negative) ng/mL Acetaminophen < 5.0 L (10-30) ug/mL Ur Barbiturates Sc reen (Negative) ng/mL Ur Phencyclidine S crn (Negative) ng/mL Ur Amphetamines Sc reen (Negative) ng/mL U Benzodiazepines Scrn (Negative) ng/mL Urine Cocaine Scre en (Negative) ng/mL U Marijuana (THC) Screen (Negative) ng/mL Ethyl Alcohol 533 H* (0-10) mg/dL 03/24/20 Range/Units 02:56 WBC (4.0-10.0) 10^3/ uL RBC (4.1-5.3) 10^6/u L Hgb (11.5-15.3) g/dL Hct (37.0-47.0) % MCV (81-99) fL MCH (28.0-34.0) pg MCHC (30.0-36.0) g/dL RDW (12.1-15.1) % Plt Count (130-400) 10^3/c mm MPV (7.4-10.4) fL Neut % (Auto) % Lymph % (Auto) % [place] % (Auto) % Eos % (Auto) % Baso % (Auto) % Neut # (Auto) (1.8-7.7) 10^3/u L Lymph # (Auto) (0.8-4.8) 10^3/u L [place] # (Auto) (0.2-0.9) 10^3/u L Eos # (Auto) (0.0-0.8) 10^3/u L Baso # (Auto) (0.0-0.1) 10^3/u L Nucleated RBC % (a uto) % Nucleated RBCs # /100WBC Sodium (136-145) mmol/L Potassium (3.5-5.1) mmol/L Chloride (98-107) mmol/L Carbon Dioxide (22-29) mmol/L Anion Gap (5-19) BUN (6-20) mg/dL Creatinine (0.5-0.9) mg/dL GFR Calculation (90-130) mL/min Glucose (65-115) mg/dL Calculated Osmolal ity (285-295) mOsm/k g Calcium (8.5-10.5) mg/dL Magnesium (1.7-2.3) mg/dL Total Bilirubin (0.15-1.2) mg/dL AST (0-32) U/L ALT (0-33) U/L Alkaline Phosphata se (35-105) IU/L Total Protein (6.6-8.7) g/dL Albumin (3.5-5.2) g/dL Globulin (1.3-4.6) g/dL HCG, Qual (Negative) Urine Color (Yellow) Urine Appearance (CLEAR) Urine pH (5-7) Ur Specific Gravit y (1.005-1.030) Urine Protein (Negative) Urine Glucose (UA) (Normal) Urine Ketones (Negative) Urine Blood (Negative) Urine Nitrate (Negative) Urine Bilirubin (Negative) Urine Urobilinogen (Negative) mg/dL Ur Leukocyte Louisa ase (Negative) Urine RBC (0-2) /hpf Urine WBC (0-5) /hpf Ur Squamous Epith Cells (0-5) /hpf Amorphous Sediment Urine Bacteria (NONE) /hpf Salicylates (3-10) mg/dL Urine Opiates Scre en (Negative) ng/mL Acetaminophen (10-30) ug/mL Ur Barbiturates Sc reen (Negative) ng/mL Ur Phencyclidine S crn (Negative) ng/mL Ur Amphetamines Sc reen (Negative) ng/mL U Benzodiazepines Scrn (Negative) ng/mL Urine Cocaine Scre en (Negative) ng/mL U Marijuana (THC) Screen (Negative) ng/mL Ethyl Alcohol 312 H* (0-10) mg/dL Discharge Plan Discharge Patient Disposition: Admitted As Inpatient Admit Provider: Zain Reed Clinical Impression: Suicidal ideation, Alcohol dependence with withdrawal, ETOH abuse, Buprenorphine dependence, Essential (primary) hypertension Condition: Stable Sign Out Sign Out Data: Patient Sign Out occurred on 03/24/20 at 09:22. Patient's care was discussed, and care was transferred from to Jeyson Amador DO. Coding Level of Care Code ED Iron Guardrail Installer for Chg Fwd Exam Detailed
[2020-03-23 21:00] LABS: Basophils % 0.4 %; Eosinophils # 0.2 10^3/uL (0.0-0.8); Eosinophils % 4.8 %; Hematocrit 44.3 % (37.0-47.0); Hemoglobin 14.5 g/dL (11.5-15.3); Lymphocytes # 2.9 10^3/uL (0.8-4.8); Lymphocytes % 63.3 %; Mean Corpuscular HGB Conc 32.7 g/dL (30.0-36.0); Mean Corpuscular Volume 100.7 fL (81-99); Monocytes # 0.2 10^3/uL (0.2-0.9); Monocytes % 4.1 %; Neutrophils # 1.26 10^3/uL (1.8-7.7); Neutrophils % 27.4 %; Nucleated Red Blood Cells % 0 %; Platelet Count 82 10^3/cmm (130-400); Red Cell Distribution Width 14.6 % (12.1-15.1); White Blood Count 4.6 10^3/uL (4.0-10.0)
[2020-03-23 21:04] VITALS: BP 134/72; PULSE 88; RESP 17; O2SAT 99; BMI 51.5
[2020-03-23 21:10] VITALS: BP 135/92; PULSE 85; RESP 18; O2SAT 99
[2020-03-23 21:44] LABS: HCG Qualitative Urine. Negative (Negative)
[2020-03-23 21:47] LABS: Amphetamines Screen Urine Negative (Negative); Barbiturates Screen Urine Negative (Negative); Benzodiazepines Screen Urine Negative (Negative); Cocaine Screen Urine Negative (Negative); Opiate Screen Urine Negative (Negative); PCP Screen Urine Negative (Negative); THC Screen Urine Negative (Negative)
[2020-03-23 21:50] LABS: Glucose Urine UA Norm (Normal); Ketones Urine Negative (Negative); Protein Urine Neg (Negative); Specific Gravity, Urine 1.005 (1.005-1.030); Urine Appearance Clear (CLEAR); Urine Color Yellow (Yellow)
[2020-03-23 21:51] LABS: Add Urine Culture? No; Add Urine Microscopic? YES; Bacteria Urine 1+ /hpf; Bilirubin Urine Neg (Negative); Blood Urine 3+ (Negative); Leukocyte Esterase Urine Negative (Negative); Nitrate Urine Negative (Negative); RBC Urine 0-4 /hpf (0-2); Urobilinogen Urine Norm (Negative)
[2020-03-23 22:09] LABS: Alanine Aminotransferase 128 U/L (0-33); Albumin Level 3.9 g/dL (3.5-5.2); Alkaline Phosphatase 100 IU/L (35-105); Anion Gap 14.3 (5-19); Aspartate Amino Transferase 279 U/L (0-32); Blood Urea Nitrogen 6 mg/dL (6-20); Calcium 8.4 mg/dL (8.5-10.5); Carbon Dioxide 30 mmol/L (22-29); Chloride 101 mmol/L (98-107); Globulin 3.4 g/dL (1.3-4.6); Glomerular Filtration Rate 98.3 mL/min (90-130); Glucose 115 mg/dL (65-115); Osmolality Calculated 293 mOsm/kg (285-295); Potassium 3.3 mmol/L (3.5-5.1); Sodium 142 mmol/L (136-145); Total Bilirubin 0.4 mg/dL (0.15-1.2); Total Protein 7.3 g/dL (6.6-8.7)
[2020-03-23 22:15] LABS: Acetaminophen < 5.0 ug/mL (10-30); Salicylate < 0.3 mg/dL (3-10)
[2020-03-23 22:16] LABS: Alcohol Level 533 mg/dL (0-10)
[2020-03-23] MEDS: ziprasidone 20 mg/mL SDV IM (22:30)
[2020-03-23] MEDS: ondansetron 4 MG Tablet PO (23:00)
[2020-03-24] VITALS (8 sets, daily range): BP systolic 116–172; BP diastolic 74–115; PULSE 70–107; RESP 16–20; TEMP 36.9–37.1; O2SAT 92–97
[2020-03-24 03:27] LABS: Alcohol Level 312 mg/dL (0-10)
--- NOTE | 2020-03-24 09:01 | PC.NURSE ---
Dr Reed at bedside to talk to pt. Pt states now that she is sober she is not suicidal. Pt would, however, like assistance with alcohol detox.
--- NOTE | 2020-03-24 09:12 | PM.PSYCN ---
Providers/Reason for Consult Consulting Physican/Specialty*: Zain Reed DO/psychiatry Reason for Consult*: Suicidal ideation, alcohol dependence with history of complicated withdrawal Requesting Physcian: Dr. Amador, emergency medicine Primary Care Provider: David Villar, KAIL[facility]-Der[facility] Psych Consult HPI History of Present Illness Consulted on Wendy De La Cruz, a 29 year old female well known to the emergency department with history of polysubstance abuse and alcohol dependence presenting with a blood alcohol level of 500 with most recent BAL of 312 at 0256. Patient is able to participate in interview but is sick requiring frequent breaks to retch. Patient states that she has been drinking daily about half gallon of vodka and is unable to provide a time. Of not drinking over the past year. Patient also reports depressive symptoms although she is unable to provide any history of a period of time in which she has not been using substances or alcohol and experiencing depressive symptoms but states that her depressive symptoms exacerbate her alcohol use. Patient reports passive suicidal thoughts, I do not know if I want to live if I am unable to stop drinking, but denies any active intent or plan of harming herself and denies any history of suicide attempt. Patient reports being seen at a Suboxone clinic but states that she had not been taking Suboxone on a regular basis and that also increased her use of alcohol over the past couple of weeks. She also denies compliance with her psychotropic medication. Patient denies any current or past psychotic symptoms. She denies any recent illicit drug use. Patient reports limited support, states she lives in a camper with no electricity, states that she has helped by friends with food and alcohol. Patient indicates that she is interested in medically managed withdrawal from alcohol as well as follow on psychiatric treatment for her depressive symptoms as well as substance treatment. Patient's previous encounter notes were reviewed in conjunction with the above interview. Review of Systems Const: Reports: body aches and diaphoresis GI: Reports: nausea Musc: Reports: muscle cramps PFSH NPU PFSH: Medical History Alcohol abuse with alcohol-induced mood disorder Essential (primary) hypertension not on any chronic treatment 09/26 Family history of alpha 1 antitrypsin deficiency Fibromyalgia Generalized anxiety disorder H/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, includes meth, heroin, others, on buprenorphine Hepatitis C antibody positive in blood Hx of abscess of skin and subcutaneous tissue right arm Major depressive disorder, recurrent, moderate Nontoxic thyroid nodule Opioid abuse Polycystic ovarian syndrome polycystic ovaries not notated on CT abdomen/pelvis 01/26 Unspecified asthma, uncomplicated onset in childhood Surgical History Hx of cholecystectomy Family History Other Hqmip-[id number] deficiency Drug abuse, amphetamine type Hypertension Social History Smoking and tobacco status: current every day smoker cigarettes Packs smoked per day: 1.5 Years cigarettes smoked: 15 Quit status (tobacco): considering quitting Second hand smoke exposure: Yes Smoking risk assessment/counseling performed?: Yes Alcohol intake: current Alcohol intake frequency: 3 or more drinks per day Alcohol type: hard liquor Desire information about alcohol rehabilitation?: Yes Counseling given: No Desire information about substance/drug rehabilitation?: No Counseling given: No Other details last substance use: Has used methamphetamine, heroin, pain medications. Adopted: No Caregiver/support person: No Lives independently: Yes Household members: friend(s) Housing: Manufactured/Mobile home Marital status: Single Number of children: 2 service: No Current occupational status: employed History of recent travel: No Current gender identity: Female Female Reproductive History: Para: 2 Mental Status Exam MSE Comments: Morbidly obese female wearing hospital gown, unkempt, disheveled, initially lying down but set up for interview, somewhat restless but cooperative, fair eye contact Psychomotor activity is neither increased nor decreased although somewhat restless, no agitation Speech is normal rate and volume with occasional pauses for retching, spontaneous, not pressured I feel horrible, congruent affect, not labile Alert and oriented to person, place, time, situation Memory and concentration appear to be fair per interview Intellectual functioning appears to be average at best based on vocabulary, interview Thought process, linear but brief, no flight of ideas, no looseness of association Thought content, no delusions, no hallucinations, no suicidal or homicidal ideation Insight and judgment appear to be fair at best based on patient's understanding of condition as well as need for treatment and events leading to her presentation in the emergency department Vitals/I&O/Wt Last Vital Signs Pulse 70 03/24/20 06:51 Resp 16 03/24/20 06:51 BP 120/76 03/24/20 06:51 Pulse Ox 97 03/24/20 06:51 Weight last 48 hrs Weight 136.078 kg Physical Exam Narrative: EXAM NARRATIVE: Emergency department physical examination was reviewed A&P Assessment and plan (1) Alcohol dependence with withdrawal: Patient in active withdrawal with history of alcohol withdrawal seizures, states last seizure was a couple days ago Patient also reporting some depressive symptoms although difficult to ascertain at this time relationship between alcohol use and depressive symptoms and would benefit from medically managed withdrawal and reevaluation RECOMMEND ICU admission for management of alcohol withdrawal with subsequent transfer to MPU for reassessing mood disorder and coordinating post discharge substance treatment Status: Acute Involuntary Hold Information 96 Hour Hold: 96 Hour Involuntary Admission: Yes 96 Hour Hold Ending Date: 03/02/20 96 Hour Hold Ending Time: 23:08 Attestations NPU Medical Necessity Statement*: Patient in active withdrawal with history of alcohol withdrawal seizures, patient also endorsing depressive symptoms with recent SI Time Spent in Patient Care: Greater than 35 minutes (>than 50% of time spent in counselling and/or direct pt care on unit). Coding Level of Care Code Acute Environmental Sustainability Manager for Bartolo Lund Diagnoses Alcohol dependence with withdrawal F10.239
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
[2020-03-24] MEDS: LORazepam 2 mg Tablet PO ×3 (11:16→20:51)
[2020-03-24] MEDS: potassium chloride ER 20 mEq Tablet 40 MEQ PO (11:29)
[2020-03-24 11:36] LABS: Magnesium 1.5 mg/dL (1.7-2.3)
[2020-03-24] MEDS: thiamine 100 mg Tablet PO (13:22)
[2020-03-24] MEDS: multivitamin therapeutic Tablet 1 TAB PO (13:22)
[2020-03-24] MEDS: folic acid 1 mg Tablet PO (13:22)
[2020-03-24] MEDS: buprenorphine-naloxone 4-1 mg Film 2 EACH SUBLINGUAL (13:22)
--- NOTE | 2020-03-24 20:21 | PC.NURSE ---
Physical assessment complete. The patient has coarse lung sounds across all lobes. Audible expiratory wheezing. Frequent coughing. At this time coughing so frequently she has nausea and vomiting. No sputum to assess at present. Will wait for sample free of partially digested food.
[2020-03-24] MEDS: prazosin 1 mg Capsule PO (20:49)
[2020-03-24] MEDS: cyclobenzaprine 10 mg Tablet PO (20:49)
[2020-03-24] MEDS: acetaminophen 325 mg Tablet 650 MG PO (20:49)
[2020-03-24] MEDS: ondansetron 4 MG Tablet PO (20:50)
--- NOTE | 2020-03-25 02:42 | PC.NURSE ---
Patient has a spider bite on her right thigh. It appears to be abscised, red and swollen. Patient requesting topical antibiotic be ordered. I will pass information to day shift to ask Dr. Reed for order.
[2020-03-25 06:00] VITALS: BP 138/88; PULSE 80; RESP 18; TEMP 36.6; O2SAT 91
[2020-03-25] MEDS: folic acid 1 mg Tablet PO (08:05)
[2020-03-25] MEDS: LORazepam 2 mg Tablet PO ×3 (08:05→20:12)
[2020-03-25] MEDS: thiamine 100 mg Tablet PO (08:05)
[2020-03-25] MEDS: metformin XR 500 MG Tablet 1000 MG PO (08:05)
[2020-03-25] MEDS: multivitamin therapeutic Tablet 1 TAB PO (08:05)
[2020-03-25] MEDS: buprenorphine-naloxone 4-1 mg Film 2 EACH SUBLINGUAL (08:05)
--- NOTE | 2020-03-25 09:40 | P.HP_ITS ---
Providers/Chief Complaint Admitting Physician: Zain Reed DO Primary Care Provider: [place] Choudhary Chief Complaint: etoh, si HPI NPU History of Present Illness Wendy De La Cruz is a 29 year old female with history of alcohol dependence and complicated withdrawal with recent withdrawal seizures, opioid dependence, PTSD presenting with a BAL of 500 as well as reporting suicidal ideation in the context of her ongoing alcohol use. Reports intermittent PTSD symptoms but reports depressive symptoms secondary to her lack of ability to control her alcohol use. Continues to report passive suicidal thoughts although denies any active intent or plan. Continues to report withdrawal symptoms to include stomach cramping, diaphoresis, occasional loose stools, headache, poor appetite. Patient states that her withdrawal symptoms are overwhelming and unable to focus on any depressive symptoms but states that she continues to have passive though ts related to her alcohol use. There have been no changes to psychiatric review of systems over the past 24 hours other than stated above. Patient continues to communicate her desire for post discharge alcohol and substance treatment as well as follow on medication management and counseling for depressive and PTSD symptoms. Review of Systems General: Reports: 10 or more systems reviewed and unremarkable except in HPI and below Narrative: Continues report withdrawal symptoms, diaphoresis, body aches, headache Meds NPU Home Medications Medication Instructions Recorded Confirmed Last Taken Type nebulizer accessories #1 each 01/04/20 03/23/20 Unknown Rx albuterol sulfate 2.5 mg INHALATION QID PRN 14 Days 01/26/20 03/23/20 Unknown Rx #75 ml epinephrine [EpiPen 2-Gerardo] 0.3 mg IM Q10M PRN 30 Days #2 each 01/26/20 03/23/20 Unknown Rx multivitamin with folic acid 1 tab PO DAILY 30 Days #30 tab 01/26/20 03/23/20 Unknown Rx [Thera] Pulmicort Flexhaler 1 inh INHALATION DAILY 02/15/20 03/23/20 Unknown History fluoxetine [Prozac] 20 mg PO DAILY 30 Days #30 cap 02/17/20 03/23/20 Unknown Rx folic acid 1 mg PO DAILY 30 Days #30 tab 02/17/20 03/23/20 Unknown Rx metformin 1,000 mg PO DAILY 30 Days #60 tab 02/17/20 03/23/20 Unknown Rx prazosin 1 mg PO BEDTIME 30 Days #30 cap 02/17/20 03/23/20 Unknown Rx thiamine mononitrate (vit B1) 100 mg PO DAILY 30 Days #30 tab 02/17/20 03/23/20 Unknown Rx [Vitamin B-1 (mononitrate)] trazodone 150 mg PO BEDTIME 30 Days #30 tab 02/17/20 03/23/20 Unknown Rx venlafaxine 150 mg PO DAILY 30 Days #30 cap 02/17/20 03/23/20 Unknown Rx fluconazole 150 mg tablet 150 mg PO ONCE #1 tab 02/22/20 03/23/20 Unknown Rx doxycycline hyclate 100 mg PO BID 7 Days #14 cap 03/18/20 03/23/20 Unknown Rx methylprednisolone [Medrol (Gerardo)] See Rx Instructions .ROUTE 03/18/20 03/23/20 Unknown Rx .COMPLEX #21 ea albuterol sulfate 90 mcg/actuation 2 puff INHALATION QID PRN 30 Days 03/22/20 03/23/20 Unknown Rx aerosol inhaler #6.7 g cyclobenzaprine 10 mg tablet 10 mg PO BID PRN 30 Days #60 tab 03/22/20 03/23/20 Unknown Rx prednisone 10 mg tablets in a dose See Rx Instructions PO PER PKG DIR 03/22/20 03/23/20 Unknown Rx pack #21 ea buprenorphine-naloxone 1 tab SUBLINGUAL DAILY 03/24/20 03/24/20 Unknown History Allergies Allergy/AdvReac Type Severity Reaction Status Date / Time codeine Allergy Unknown ALGY-Hives Verified 03/23/20 21:10 hydroxyzine [From Vistaril] Allergy ADR-Itching Verified 03/23/20 21:10 PFSH NPU PFSH: Medical History Alcohol abuse with alcohol-induced mood disorder Essential (primary) hypertension not on any chronic treatment 09/26 Family history of alpha 1 antitrypsin deficiency Fibromyalgia Generalized anxiety disorder H/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, includes meth, heroin, others, on buprenorphine Hepatitis C antibody positive in blood Hx of abscess of skin and subcutaneous tissue right arm Major depressive disorder, recurrent, moderate Nontoxic thyroid nodule Opioid abuse Polycystic ovarian syndrome polycystic ovaries not notated on CT abdomen/pelvis 01/26 Tobacco dependency Unspecified asthma, uncomplicated onset in childhood Surgical History Hx of cholecystectomy Family History Other [id number] deficiency Drug abuse, amphetamine type Hypertension Social History Smoking and tobacco status: current every day smoker cigarettes Packs smoked per day: 1.5 Years cigarettes smoked: 15 Quit status (tobacco): considering quitting Second hand smoke exposure: Yes Smoking risk assessment/counseling performed?: Yes Alcohol intake: current Alcohol intake frequency: 3 or more drinks per day Alcohol type: hard liquor Desire information about alcohol rehabilitation?: Yes Counseling given: No Desire information about substance/drug rehabilitation?: No Counseling given: No Other details last substance use: Has used methamphetamine, heroin, pain medications. Adopted: No Caregiver/support person: No Lives independently: Yes Household members: friend(s) Housing: Manufactured/Mobile home Marital status: Single Number of children: 2 service: No Current occupational status: employed History of recent travel: No Current gender identity: Female Other Psychiatric History: Other Psychiatric History: Please refer to psychiatric consult completed 03/24/2020 Female Reproductive History: Para: 2 Mental Status Exam MSE Comments: Morbidly obese female, initially lying down but sat up for interview, calm, cooperative, good eye contact Psychomotor activity is neither increased nor decreased although somewhat restless, no agitation Speech is normal rate and volume, spontaneous, not pressured I feel horrible, congruent affect, not labile Alert and oriented to person, place, time, situation Memory and concentration appear to be fair per interview Intellectual functioning appears to be average at best based on vocabulary, interview Thought process, linear but brief, no flight of ideas, no looseness of association Thought content, no delusions, no hallucinations, no suicidal or homicidal ideation Insight and judgment appear to be fair Vitals/I&O/Wt Last Vital Signs Temp 97.9 F 03/25/20 06:00 Pulse 80 03/25/20 06:00 Resp 18 03/25/20 06:00 BP 138/88 03/25/20 06:00 Pulse Ox 91 03/25/20 06:00 Weight last 48 hrs Weight 136.078 kg Physical Exam Narrative: EXAM NARRATIVE: Hospitalist physical examination reviewed Data NPU : 03/23/20 20:50 03/23/20 20:50 A&P Assessment and plan (1) Suicidal ideation: Status: Acute (2) Alcohol dependence with withdrawal: Status: Acute (3) Posttraumatic stress disorder: Status: Chronic (4) Buprenorphine dependence: Status: Chronic Additional A&P Information Patient with history of posttraumatic stress disorder, alcohol dependence with history of complicated alcohol withdrawal, opioid dependence with recent use of buprenorphine although patient has not been consistent and noncompliant with buprenorphine continues to have alcohol withdrawal and is on CIWA protocol. Continues to report depressive symptoms with passive suicidal thoughts with no active intent or plan VOLUNTARY ADMIT to inpatient psychiatry CONTINUE CIWA protocol Hospitalist has been consulted and currently following START thiamine 100 mg daily CONTINUE fluoxetine 20 mg daily targeting depressive symptoms Encourage fluid intake and eating meals Encourage patient participate in unit activities to include unit milieu Involuntary Hold Information 96 Hour Hold: 96 Hour Involuntary Admission: No 96 Hour Hold Ending Date: 03/02/20 96 Hour Hold Ending Time: 23:08 Attestations NPU Medical Necessity Statement*: Patient with history of life-threatening complicated withdrawal seizures with need for close monitoring during CIWA p rotocol, ongoing passive suicidal ideation as well as need for medication stabilization and coordination for safe discharge to include post discharge follow-up Time Spent in Patient Care: Greater than 35 minutes (>than 50% of time spent in counselling and/or direct pt care on unit) . Coding Level of Care Code Acute Trestle Mainternance Laborer for Bartolo Lund Diagnoses Suicidal ideation R45.851 Alcohol dependence with withdrawal F10.239 Posttraumatic stress disorder F43.10 Buprenorphine dependence F11.20
[2020-03-25] MEDS: fluoxetine 20 mg Capsule PO (09:45)
[2020-03-25 10:30] VITALS: PULSE 87; RESP 16; O2SAT 94
[2020-03-25] MEDS: albuterol 8 gm MDI 2 PUFF INHALATION ×3 (10:30→17:15)
[2020-03-25] MEDS: cyclobenzaprine 10 mg Tablet PO (12:15)
[2020-03-25] MEDS: acetaminophen 325 mg Tablet 650 MG PO ×2 (12:16→20:11)
[2020-03-25 13:38] VITALS: PULSE 74; RESP 15; O2SAT 95
[2020-03-25 13:44] VITALS: BP 142/76; PULSE 80; RESP 12; TEMP 36.8; O2SAT 93
--- NOTE | 2020-03-25 15:24 | P.PN_ITS ---
Subjective Subjective: Interval history: reports 2-3 episodes of diarrhea today, reports that she was taking suboxone at home as 8mg po daily, 4mg in the afternoon and 4 mg in the evening. no reported seizures. It has been confirmed with the pharmacy by checking external prescription history that her prescription is for 8mg BID. Medications: Reviewed: Yes Vitals/I&O/Wt Last Vital Signs Temp 98.2 F 03/25/20 13:44 Pulse 80 03/25/20 13:44 Resp 12 03/25/20 13:44 BP 142/76 03/25/20 13:44 Pulse Ox 93 03/25/20 13:44 Weight last 48 hrs Weight 136.078 kg Physical Exam Narrative: EXAM NARRATIVE: GEN: Awake, alert and oriented, no acute distress CVS: S1S2 N RS: CTA B/L Abd: Soft, nt/nd , bs+ ACTING MANAGER: no focal neuro deficits Data : 03/23/20 20:50 03/23/20 20:50 A&P Assessment and plan (1) ETOH abuse: Patient with significantly elevated alcohol level on admission She reports she may have seizures at home from withdrawal, however, she has had 6 admissions since September 2019 which she was managed from an alcohol withdrawal standpoint in the neuropsychiatric unit with [facility] protocol. Patient reports this usually works well to prevent any seizures or significant withdrawal symptoms. Thiamine, multivitamin will be given Monitor closely for any serious withdrawal Status: Acute (2) Hypokalemia: Supplemented in the emergency department Check magnesium level Status: Acute (3) Thrombocytopenia: Likely secondary to underlying liver disease, from alcohol or hepatitis C. Could also be bone marrow suppression. Status: Acute (4) Hepatitis C antibody positive in blood: May need outpatient treatment Status: Chronic (5) Buprenorphine dependence: Continue while inpatient. Confirmed the outside prescription which is in fact 8mg BID as reported by the patient. She has been taking it as 8mg in the morning, then 4mg in the afternoon and 4mg again at night time. We will edit the prescription to reflect her home dosing. Status: Chronic (6) Unspecified asthma, uncomplicated: Albuterol as needed Status: Chronic Qualifiers: Asthma severity: unspecified severity Asthma persistence: unspecified Qualified Code(s): J45.909 - Unspecified asthma, uncomplicated (7) Tobacco abuse: Counseling Status: Chronic Additional A&P Information Severe depression. Will be managed by psychiatry History of suicidal ideation on admission. Patient denies currently. Psychiatry on admission did not think 96-hour hold was needed. Patient is voluntary admission to the neuropsychiatric unit for severe depression and alcoholism. Full code Low risk for DVT Attestations Medical Necessity Statement*: please see psychiatry note Coding Level of Care Code Acute Osteopathic Medicine Teacher for Chg Fwd Diagnoses ETOH abuse F10.10 Hypokalemia E87.6 Thrombocytopenia D69.6 Hepatitis C antibody positive in blood R76.8 Buprenorphine dependence F11.20 Unspecified asthma, uncomplicated J45.909 Asthma severity: unspecified severity Asthma persistence: unspecified Tobacco abuse Z72.0
[2020-03-25 17:14] VITALS: PULSE 80; RESP 16; O2SAT 96
[2020-03-25] MEDS: buprenorphine-naloxone 4-1 mg Film 1 EACH SUBLINGUAL (17:37)
[2020-03-25 18:38] LABS: Basophils % 0.6 %; Eosinophils # 0.1 10^3/uL (0.0-0.8); Eosinophils % 3.2 %; Hematocrit 40.1 % (37.0-47.0); Hemoglobin 13.2 g/dL (11.5-15.3); Lymphocytes % 65.6 %; Mean Corpuscular HGB Conc 32.9 g/dL (30.0-36.0); Mean Corpuscular Hemoglobin 33.4 pg (28.0-34.0); Mean Corpuscular Volume 101.5 fL (81-99); Mean Platelet Volume 10.9 fL (7.4-10.4); Monocytes # 0.1 10^3/uL (0.2-0.9); Monocytes % 5.1 %; Neutrophils % 24.2 %; Nucleated Red Blood Cells % 0 %; Platelet Count 44 10^3/cmm (130-400); Red Blood Count 3.95 10^6/uL (4.1-5.3); Red Cell Distribution Width 14.3 % (12.1-15.1); White Blood Count 1.6 10^3/uL (4.0-10.0)
[2020-03-25 18:53] LABS: Neutrophils # 0.38 10^3/uL (1.8-7.7)
[2020-03-25 18:56] LABS: Alanine Aminotransferase 70 U/L (0-33); Albumin Level 3.5 g/dL (3.5-5.2); Alkaline Phosphatase 93 IU/L (35-105); Anion Gap 8.7 (5-19); Aspartate Amino Transferase 79 U/L (0-32); Blood Urea Nitrogen 6 mg/dL (6-20); Calcium 8.8 mg/dL (8.5-10.5); Carbon Dioxide 35 mmol/L (22-29); Chloride 96 mmol/L (98-107); Globulin 3.4 g/dL (1.3-4.6); Glomerular Filtration Rate 98.3 mL/min (90-130); Glucose 95 mg/dL (65-115); Magnesium 1.3 mg/dL (1.7-2.3); Osmolality Calculated 279 mOsm/kg (285-295); Potassium 3.7 mmol/L (3.5-5.1); Sodium 136 mmol/L (136-145); Total Bilirubin 0.5 mg/dL (0.15-1.2); Total Protein 6.9 g/dL (6.6-8.7)
[2020-03-25 19:56] VITALS: BP 190/110; PULSE 85; RESP 18; TEMP 36.7; O2SAT 96
[2020-03-25] MEDS: prazosin 1 mg Capsule PO (20:11)
[2020-03-25] MEDS: trazodone 50 mg Tablet PO ×2 (20:12→23:49)
--- NOTE | 2020-03-25 20:54 | PC.NURSE ---
PATIENT ON PHONE WITH FAMILY, SAYS HER GRANDMOTHER HAS TESTED POSITIVE FOR COVID AND SHE NEEDS TO LEAVE, SAYS SHE HAS A FRIEND THAT WILL PICK HER UP. CALLED DR ASHLEY, SAYS TO INFORM PATIENT WILL TALK TO IN AM AND WANTS HER TO BE REEVALUATED , SAYS STILL IN DANGER OF HAVING SEIZURES SINCE BLOOD ALCHOL WAS SO HIGH. INFORMED PATIENT, SHE STARTED YANKING ON HER HAIR AND WENT TO HER ROOM, SLAMMED DOOR.
--- NOTE | 2020-03-25 22:12 | PC.NURSE ---
Patient was given Ativan 2 mg po for CIWA score of 16 at 2011. She had anxiety, sweats, headache, elevated blood pressure, 190/110, nausea. At 2099 noted the patient more relaxed using the telephone in the hallway. At 2114 the patient reported absence of nausea and requested food. Her evening meal was heated in the microwave. The patient consumed the complete meal. At present, no complaint of detox symptoms. Blood pressure now 129/88, pulse 83.
[2020-03-25] MEDS: OLANZapine 5 mg ODT PO (23:12)
[2020-03-26 04:53] VITALS: BP 142/104; PULSE 102; RESP 20; TEMP 36.9; O2SAT 93
--- NOTE | 2020-03-26 04:55 | PC.NURSE ---
Patient has been up at intervals. Currently up. Some confusion. Sedated. Mumbled speech. CIWA=5. bp 142/104, p 102, r 20, t 98.5, 93% sat. Coughing with coarse lungs, all kowalski. No expectorate.
[2020-03-26 06:00] VITALS: BP 142/104; PULSE 102; RESP 20; TEMP 36.9; O2SAT 93
[2020-03-26] MEDS: buprenorphine-naloxone 4-1 mg Film 2 EACH SUBLINGUAL (08:14)
[2020-03-26] MEDS: thiamine 100 mg Tablet PO (08:14)
[2020-03-26] MEDS: multivitamin therapeutic Tablet 1 TAB PO (08:14)
[2020-03-26] MEDS: fluoxetine 20 mg Capsule PO (08:14)
[2020-03-26] MEDS: metformin XR 500 MG Tablet 1000 MG PO (08:14)
[2020-03-26] MEDS: folic acid 1 mg Tablet PO (08:14)
[2020-03-26] MEDS: albuterol 8 gm MDI 2 PUFF INHALATION (09:46)
[2020-03-26 09:47] VITALS: PULSE 102; RESP 20; O2SAT 93
[2020-03-26] MEDS: LORazepam 2 mg Tablet PO ×2 (10:26→14:06)
--- NOTE | 2020-03-26 10:27 | PC.NURSE ---
PRN ATIVAN ADMINISTERED ATIVAN 2MG PO PER CIWA PROTOCOL. WILL MONITOR FOR MEDICATION EFFECTIVENESS.
--- NOTE | 2020-03-26 10:38 | P.PN_ITS ---
Subjective NPU Subjective: Interval history: Continues to report alcohol withdrawal symptoms, stomach cramping, poor appetite although she reports making herself eat small amounts, loose stools. Patient also reports seeing shadowy figure in room Reports poor sleep Reports intermittent depressive symptoms States that she has been compliant with her medication, denies any medication side effects No reported behavioral disturbances Patient concerned because her grandmother had been called and told that she had tested positive from a recent COVID test Mental Status Exam MSE Comments: Initially lying in bed, sits up for interview, calm, cooperative, interactive, good eye contact Psychomotor activity is neither increased nor decreased, no agitation Speech is normal rate and volume, fair articulation, spontaneous, not pressured I feel horrible, congruent affect, not labile Alert and oriented to person, place, time, situation Memory and concentration appear to be intact per interview Thought process, linear but brief, no flight of ideas, no looseness of associations Thought content, no delusions, no hallucinations, does not appear to be attending to any internal stimuli, no suicidal or homicidal ideation Insight and judgment appear to be fair to intact Vitals/I&O/Wt Last Vital Signs Temp 98.5 F 03/26/20 06:00 Pulse 102 H 03/26/20 09:47 Resp 20 H 03/26/20 09:47 BP 142/104 03/26/20 06:00 Pulse Ox 93 03/26/20 09:47 Weight last 48 hrs Weight 136.078 kg Data NPU : 03/25/20 18:10 03/25/20 18:10 A&P Assessment and plan (1) Suicidal ideation: Status: Acute (2) Alcohol dependence with withdrawal: Status: Acute (3) Depressive disorder: Status: Acute Additional A&P Information Patient continues to report significant alcohol withdrawal symptoms on CIWA protocol, reports ongoing depressive symptoms, denies any interval suicidal ideation. Patient with concern for COVID exposure after finding out that her grandmother had tested positive Rapid COVID test CONTINUE CIWA protocol Hospitalist continues to follow CONTINUE current medication Continue coordination for post discharge follow-up Involuntary Hold Information 96 Hour Hold: 96 Hour Involuntary Admission: No 96 Hour Hold Ending Date: 03/02/20 96 Hour Hold Ending Time: 23:08 Attestations NPU Medical Necessity Statement*: Patient continues to require psychiatric hospitalization for monitored medical management of withdrawal with history of alcohol withdrawal seizures as well as need for medication stabilization and coordination for safe discharge including post discharge follow-up Coding Level of Care Code Acute Software Clerk for g Fwd Diagnoses Suicidal ideation R45.851 Alcohol dependence with withdrawal F10.239 Depressive disorder F32.9
[2020-03-26 11:25] LABS: SARS Covid-2 Antigen Positive (Negative)
--- NOTE | 2020-03-26 11:25 | PC.NURSE ---
Contacted house director about clients positive covid test. Confirmed that Dr. Cooper is on duty today. Notified Dr. Cooper by leaving a message on her phone requesting her to call Dr. Reed to discuss her further care. Waiting all source collection manager back from Dr. Cooper or for her to visit the patient on the unit.
--- NOTE | 2020-03-26 11:30 | P.PN_ITS ---
Subjective Subjective: Interval history: Patient reported today to Dr. Reed that her grandmother has resulted as being Covid +. Rapid AG was sent for patient which returned positive. She reports her father is additionally Covid + at this time. She has had contact with both relatives. Denies any current symptoms except for intermittent diarrhea and rhinorrhea. No cough, chest pain, dyspnea or palpitations. Afebrile and hemodynamically stable. Saturating 93-96% on RA. Developing leukopenia and thrombocytopenia with ANC 0.38. plt [id number], no bleeding at any site. Medications: Reviewed: Yes Vitals/I&O/Wt Last Vital Signs Temp 99.0 F 03/26/20 13:21 Pulse 92 03/26/20 13:21 Resp 18 03/26/20 13:21 BP 154/94 03/26/20 13:21 Pulse Ox 93 03/26/20 09:47 Weight last 48 hrs Weight 136.078 kg Physical Exam Narrative: EXAM NARRATIVE: GEN: Awake, alert and oriented, no acute distress CVS: S1S2 N RS: CTA B/L Abd: Soft, nt/nd , bs+ SECTION WEAVER: no focal neuro deficits Data : 03/25/20 18:10 03/25/20 18:10 A&P Assessment and plan (1) COVID-19: detected today by positive rapid Ag test No past h/o COVID 19 has + family contact with father and grandmother being positive no respiratory complaints at this time. Only symptom is rhinorrhea and diarrhea, which could alternatively be related to withdrawal check CXR inflammatory markers incl D dimer , LDH, ferritin , CRP monitor 02 saturation Status: Acute (2) Pancytopenia: noted leukopenia and thrombocytopenia, ANC 0.38, afebrile currently may be related to acute viral infection differential includes hep C (screen +) and alcohol related BM suppression check HIV, HEP C viral load , TSH, iron level, folate, b12 , retic count and peripheral smear Status: Acute (3) ETOH abuse: Patient with significantly elevated alcohol level on admission She reports she may have seizures at home from withdrawal, however, she has had 6 admissions since September 2019 which she was managed from an alcohol withdrawal standpoint in the neuropsychiatric unit with [facility] protocol. Patient reports this usually works well to prevent any seizures or significant withdrawal symptoms. Thiamine, multivitamin will be given Monitor closely for any serious withdrawal Status: Acute (4) Hypokalemia: Resolved Status: Acute (5) Hepatitis C antibody positive in blood: May need outpatient treatment Status: Chronic (6) Buprenorphine dependence: Continue while inpatient. Confirmed the outside prescription which is in fact 8mg BID as reported by the patient. She has been taking it as 8mg in the morning, then 4mg in the afternoon and 4mg again at night time. We will edit the prescription to reflect her home dosing. Status: Chronic (7) Unspecified asthma, uncomplicated: d/c albuterol and budesonide nebulization change to spiriva inhaler to minimize risk of aerosolization given now COVID+ Status: Chronic Qualifiers: Asthma severity: unspecified severity Asthma persistence: unspecified Qualified Code(s): J45.909 - Unspecified asthma, uncomplicated (8) Tobacco abuse: Counseling Status: Chronic Additional A&P Information Transfer to COVID unit on med/surg Maintain all isolation precautions Severe depression. psychiatry will continue to follow on med/surg History of suicidal ideation on admission. Patient denies currently. Psychiatry on admission did not think 96-hour hold was needed. Full code DVT ppx: SCDs Attestations Medical Necessity Statement*: ongoing admission for alcohol withdrawal, depression, transferred to medicine unit as now tested covid +, currently with mild symptoms Coding Level of Care Code Acute Survey Engineer for [facility] Fwd Diagnoses COVID-19 U07.1 Pancytopenia D61.818 ETOH abuse F10.10 Hypokalemia E87.6 Hepatitis C antibody positive in blood R76.8 Buprenorphine dependence F11.20 Unspecified asthma, uncomplicated J45.909 Asthma severity: unspecified severity Asthma persistence: unspecified Tobacco abuse Z72.0
[2020-03-26] MEDS: buprenorphine-naloxone 4-1 mg Film 1 EACH SUBLINGUAL (11:47)
[2020-03-26 13:21] VITALS: BP 154/94; PULSE 92; RESP 18; TEMP 37.2
--- NOTE | 2020-03-26 14:06 | PC.NURSE ---
PRN ATIVAN ADMINISTERED ATIVAN 2MG PO PER CIWA PROTOCOL. WILL MONITOR FOR MEDICATION EFFECTIVENESS.
--- NOTE | 2020-03-26 14:47 | XRR_ITS ---
PROCEDURE INFORMATION: Exam: XR Chest, 1 View Exam date and time: 03/26/2020 2:49 PM Age: 29 years old Clinical indication: Dyspnea; Additional info: Covid 19 TECHNIQUE: Imaging protocol: XR of the chest Views: 1 view. COMPARISON: CT chest abd pel w con* 03/03/2020 9:53 PM FINDINGS: Lungs: There is vascular congestion with cephalization of flow, interstitial edema and ground-glass opacities compatible with CHF. Bibasilar ground-glass opacities are also noted concerning for mild airspace edema, pneumonitis and/or atelectasis. Pleural space: Unremarkable. No pleural effusion. No pneumothorax. Heart/Mediastinum: There is cardiomegaly. Bones/joints: No acute abnormality. XR/XR chest 1V portable [id number] IMPRESSION: 1. There is vascular congestion with cephalization of flow, interstitial edema and ground-glass opacities compatible with CHF. 2. Bibasilar ground-glass opacities are also noted concerning for mild airspace edema, pneumonitis and/or atelectasis.
--- NOTE | 2020-03-26 19:42 | PC.NURSE ---
1615 late note. Patient left AMA at this time.
--- NOTE | 2020-03-26 19:59 | P.DS_ITS ---
Discharge Providers Date of Admission: 03/24/20 10:37 Date of Discharge: March 27, 2020 Attending Provider at Admission: Zain Reed DO Attending Provider at Discharge: Zain Reed DO Primary Care Provider: [place] Choudhary Diagnoses at Discharge Discharge Diagnosis (1) COVID-19: Status: Acute (2) Pancytopenia: Status: Acute (3) ETOH abuse: Status: Acute (4) Hypokalemia: Status: Acute (5) Hepatitis C antibody positive in blood: Status: Chronic (6) Buprenorphine dependence: Status: Chronic (7) Unspecified asthma, uncomplicated: Status: Chronic Permanent problem details: onset in childhood Qualifiers: Asthma severity: unspecified severity Asthma persistence: unspecified Qualified Code(s): J45.909 - Unspecified asthma, uncomplicated (8) Tobacco abuse: Status: Chronic Reason for Visit Reason for Visit: etoh, si Hospital Course Hospital Course patient left AMA at 1553 on 03/26/20. See my progress note from today Discharge Data Data Completed and Pending: Completed Studies During Hospitalization Category Date Time Status XR chest 1V april ble [id number] Routine Exams 03/26/20 14:47 Completed Vitals: Last Vital Signs Temp 99.0 F 03/26/20 13:21 Pulse 92 03/26/20 13:21 Resp 18 03/26/20 13:21 BP 154/94 03/26/20 13:21 Pulse Ox 93 03/26/20 09:47 Discharge Plan Discharge Patient Disposition: Left Against Medical Advice Condition: Stable Prescriptions: No Action albuterol sulfate [ProAir HFA] 90 mcg/actuation HFA aerosol inhaler 2 puff inhalation QID PRN (Reason: shortness of breath or wheezing) 30 Days Qty: 6.7 RF: 2 prednisone 10 mg tablets,dose pack See Rx Instructions PO PER PKG DIR Qty: 21 RF: 0 cyclobenzaprine 10 mg tablet 10 mg PO BID PRN (Reason: muscle spasm) 30 Days Qty: 60 RF: 0 (DME) nebulizer accessories Kit See Rx Instructions .ROUTE .MEDSUPPLY Qty: 1 RF: 0 fluconazole [Diflucan] 150 mg tablet 150 mg PO ONCE Qty: 1 RF: 0 buprenorphine-naloxone 8-2 mg tablet, sublingual 1 tab SUBLINGUAL BID RF: 0 multivitamin with folic acid [Thera] 400 mcg Tablet 1 tab PO DAILY 30 Days Qty: 30 RF: 1 albuterol sulfate 2.5 mg /3 mL (0.083 %) solution for nebulization 2.5 mg INHALATION QID PRN (Reason: shortness of breath or wheezing) 14 Days Qty: 75 RF: 2 epinephrine [EpiPen 2-Gerardo] 0.3 mg/0.3 mL auto-injector 0.3 mg IM Q10M PRN (Reason: anaphylaxis) 30 Days Qty: 2 RF: 1 Pulmicort Flexhaler 180 mcg/actuation Aerosol Powdr Breath Activated 1 inh INHALATION DAILY RF: 0 venlafaxine 150 mg Capsule,Extended Release 24hr 150 mg PO DAILY 30 Days Qty: 30 RF: 1 prazosin 1 mg capsule 1 mg PO BEDTIME 30 Days Qty: 30 RF: 1 trazodone 150 mg Tablet 150 mg PO BEDTIME 30 Days Qty: 30 RF: 1 folic acid 1 mg Tablet 1 mg PO DAILY 30 Days Qty: 30 RF: 1 fluoxetine [Prozac] 20 mg Capsule 20 mg PO DAILY 30 Days Qty: 30 RF: 1 metformin 500 mg tablet extended release 24hr 1,000 mg PO DAILY 30 Days Qty: 60 RF: 1 thiamine mononitrate (vit B1) [Vitamin B-1 (mononitrate)] 100 mg Tablet 100 mg PO DAILY 30 Days Qty: 30 RF: 1 methylprednisolone [Medrol (Gerardo)] 4 mg tablets,dose pack See Rx Instructions .ROUTE .COMPLEX Qty: 21 RF: 0 Discharge Attestations Time Spent in Discharge Care*: less than 30 min Status at Discharge: Cognitive status at discharge: cognitively intact , Behavioral status at discharge: cooperative , Quality Metrics Clinical Quality Measures During this hospital stay, did patient experience: None Coding Level of Care Code Acute Paper Rewinder for g Fwd Diagnoses COVID-19 U07.1 Pancytopenia D61.818 ETOH abuse F10.10 Hypokalemia E87.6 Hepatitis C antibody positive in blood R76.8 Buprenorphine dependence F11.20 Unspecified asthma, uncomplicated J45.900 Asthma severity: unspecified severity Asthma persistence: unspecified Tobacco abuse Z72.0
== END 2020-03-26 16:15 | disposition left against medical advice (07) | DRG 894 ==
LOC: ER 03-24 09:22 → NP 03-24 10:55 → MEDSURG 03-26 15:46
PROVIDERS: Emergency Medicine; Family Medicine; Internal Medicine; Admitting Provider Psychiatry & Neurology Psychiatry; Emergency Provider Family Medicine; PCP Nurse Practitioner; Visit Provider Psychiatry & Neurology Psychiatry
DX: F10.239 Alcohol dependence with withdrawal, unspecified (principal); U07.1 COVID-19; F11.20 Opioid dependence, uncomplicated; R45.851 Suicidal ideations; D61.818 Other pancytopenia; F10.229 Alcohol dependence with intoxication, unspecified; F10.24 Alcohol dependence with alcohol-induced mood disorder; Y90.8 Blood alcohol level of 240 mg/100 ml or more; F43.12 Post-traumatic stress disorder, chronic; F32.9 Major depressive disorder, single episode, unspecified; Z83.2 Family history of diseases of the blood and blood-forming organs and certain disorders involving the immune mechanism; M79.7 Fibromyalgia; F41.1 Generalized anxiety disorder; B18.2 Chronic viral hepatitis C; E04.1 Nontoxic single thyroid nodule; F17.210 Nicotine dependence, cigarettes, uncomplicated; E28.2 Polycystic ovarian syndrome; J45.909 Unspecified asthma, uncomplicated; E87.6 Hypokalemia; D69.6 Thrombocytopenia, unspecified; Z53.29 Procedure and treatment not carried out because of patient's decision for other reasons
CPT/HCPCS: 12345; 36415; 71045; 80053; 80306; 80307; 81001; 81025; 83735; 85025; 87426; 94640; 96372; 99284; J0573; J3486; J3535; J7611; Q0162

== ENCOUNTER 2020-03-27 00:34 | Emergency (ER) | payer MEDICAID, SELFPAY ==
[2020-03-27 00:47] VITALS: BP 157/98; PULSE 102; RESP 18; TEMP 36.7; O2SAT 100; BMI 50.3
[2020-03-27 01:42] VITALS: BP 146/90; PULSE 98; RESP 22; O2SAT 98
--- NOTE | 2020-03-27 02:38 | ED_ITS ---
HPI - General Adult General: Chief complaint: General Medical Stated complaint: SI Time Seen by Provider: 03/27/20 00:52 Source: patient Mode of arrival: ambulatory Limitations: no limitations History of Present Illness: HPI narrative: Patient is a 29-year-old female well-known to the emergency department here wanting a re-admitted so someone can keep an eye on me because I have COVID . Patient was recently seen in our facility as a psychiatric patient but because of the concern for acute alcohol withdrawal she was admitted as a medical patient. She was consulted on several times by psychiatrist Dr. Reed. He did not feel patient met 96-hour hold criteria. Patient apparently left at some point during that visit AMA because she got mad at a nurse and wanted a cigarette. Patient tells me she is not wanting to be admitted as a psych patient today. She has no interest in going to [facility]. She tells me she is not suicidal. Patient states she is scared about her COVID diagnosis and wants somebody to watch her for two days. Onset (ago): hour(s) Associated symptoms: Deny chest pain, dyspnea, headache(s), nausea, rash, palpitations, syncope or vomiting Review of Systems Const: Denies: fever(s), chills, body aches or fatigue Eyes: Denies: change in vision or blurry vision ENMT: Denies: odynophagia Card: Denies: chest pain, palpitations, irregular heart rhythm, lightheadedness, syncope or dyspnea on exertion Resp: Denies: dyspnea, productive cough or pain on inspiration GI: Denies: abdominal pain, nausea, vomiting, heartburn or diarrhea : Denies: flank pain or dysuria Musc: Denies: neck pain, back pain or joint pain Skin/Breast: Denies: rash Neuro: Denies: headache(s) Psych: Denies: visual hallucinations, auditory hallucinations, suicidal ideation or homicidal ideation PFS ED PFSH: Medical History Alcohol abuse with alcohol-induced mood disorder Essential (primary) hypertension not on any chronic treatment 09/26 Family history of alpha 1 antitrypsin deficiency Fibromyalgia Generalized anxiety disorder H/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, includes meth, heroin, others, on buprenorphine Hepatitis C antibody positive in blood Hx of abscess of skin and subcutaneous tissue right arm Major depressive disorder, recurrent, moderate Nontoxic thyroid nodule Opioid abuse Polycystic ovarian syndrome polycystic ovaries not notated on CT abdomen/pelvis 01/26 Tobacco dependency Unspecified asthma, uncomplicated onset in childhood Surgical History Hx of cholecystectomy Family History Other Dwtln-4-[id number] deficiency Drug abuse, amphetamine type Hypertension Social History Smoking and tobacco status: current every day smoker cigarettes Packs smoked per day: 1.5 Years cigarettes smoked: 15 Quit status (tobacco): considering quitting Second hand smoke exposure: Yes Smoking risk assessment/counseling performed?: Yes Alcohol intake: current Alcohol intake frequency: 3 or more drinks per day Alcohol type: hard liquor Desire information about alcohol rehabilitation?: Yes Counseling given: No Desire information about substance/drug rehabilitation?: No Counseling given: No Other details last substance use: Has used methamphetamine, heroin, pain medications. Adopted: No Caregiver/support person: No Lives independently: Yes Household members: friend(s) Housing: Manufactured/Mobile home Marital status: Single Number of children: 2 service: No Current occupational status: employed History of recent travel: No Current gender identity: Female Female Reproductive History: Date of last menstrual period: 03/18/20 Para: 2 Physical Exam Const: COMMON NORMALS: no acute distress, patient oriented x3 and alert NUTRITIONAL APPEARANCE: obese ORIENTATION/CONSCIOUSNESS: Yes awake, Yes oriented to person, Yes oriented to place and Yes oriented to time OTHER: appears intoxicated HENMT: COMMON NORMALS: normocephalic and atraumatic HEAD & SCALP: normocephalic and atraumatic Resp: COMMON NORMALS: normal respiratory effort and clear to auscultation bilaterally AUSCULTATION: clear to auscultation bilaterally Cardio: COMMON NORMALS: regular rate and regular rhythm RATE: regular rate RHYTHM: regular rhythm Neuro: GABI COMA SCALE: document GCS findings [place] coma scale eye opening: Spontaneous [place] coma scale verbal response: Orientated [place] coma scale motor response: Obey commands [place] coma scale total score: 15 COMMON NORMALS: patient oriented x3, CN's II-XII intact bilaterally, moves all extremities, no focal motor deficits and no sensory deficits noted SENSORIUM/ORIENTATION: Yes alert, Yes oriented to person, Yes oriented to place and Yes oriented to time Psych: COMMON NORMALS: mental status grossly normal, cooperative, activity/motor behavior normal, denies homicidal ideation and denies suicidal ideation APPEARANCE: Yes other (no shoes) ATTITUDE: Yes calm ACTIVITY/MOTOR BEHAVIOR: Yes appropriate eye contact SPEECH: Yes slurred MOOD & AFFECT: Yes euthymic mood THOUGHT CONTENT: Yes Normal thought content present ATTENTION/CONCENTRATION: Yes attention grossly intact and Yes concentration grossly intact MEMORY/COGNITION: Yes memory grossly intact INSIGHT: Fair insight present (Psych) JUDGEMENT: Limited judgement present (Psych) (secondary to intoxication ) Course Vital Signs: Vital signs: Vital Signs Temperature 98.0 F 03/27/20 00:47 Pulse Rate 98 03/27/20 01:42 Respiratory Rate 22 H 03/27/20 01:42 Blood Pressure 146/90 03/27/20 01:42 Pulse Oximetry 98 03/27/20 01:42 MDM - General Adult MDM Narrative: Medical decision making narrative: Patient has no psychiatric complaints at this time. She states she does not want to go to [facility]. She reports she wants to be admitted medically because of her COVID however patient is not in any distress. Her vital signs are perfect. She does not meet medical admission at this time. She is clinically intoxicated. Ultimately patient needs to be discharged from the emergency department however she does not have a ride home and because she is COVID positive I cannot discharge her to the waiting room. She does not have shoes on and it is below freezing outside. I have spoken to Dr. Martinez regarding the best plan for patient. We both feel the most appropriate plan for her would be to discharge her but allow her to sleep in her room until she is clinically sober and she can be released in the morning. Discharge Plan Discharge Patient Disposition: Home Clinical Impression: Alcohol intoxication Qualifiers: Complication of substance-induced condition: uncomplicated Qualified Code(s): F10.920 - Alcohol use, unspecified with intoxication, uncomplicated Condition: Stable Prescriptions: No Action albuterol sulfate [ProAir HFA] 90 mcg/actuation HFA aerosol inhaler 2 puff inhalation QID PRN (Reason: shortness of breath or wheezing) 30 Days Qty: 6.7 RF: 2 prednisone 10 mg tablets,dose pack See Rx Instructions PO PER PKG DIR Qty: 21 RF: 0 cyclobenzaprine 10 mg tablet 10 mg PO BID PRN (Reason: muscle spasm) 30 Days Qty: 60 RF: 0 (DME) nebulizer accessories Kit See Rx Instructions .ROUTE .MEDSUPPLY Qty: 1 RF: 0 fluconazole [Diflucan] 150 mg tablet 150 mg PO ONCE Qty: 1 RF: 0 buprenorphine-naloxone 8-2 mg tablet, sublingual 1 tab SUBLINGUAL BID RF: 0 multivitamin with folic acid [Thera] 400 mcg Tablet 1 tab PO DAILY 30 Days Qty: 30 RF: 1 albuterol sulfate 2.5 mg /3 mL (0.083 %) solution for nebulization 2.5 mg INHALATION QID PRN (Reason: shortness of breath or wheezing) 14 Days Qty: 75 RF: 2 epinephrine [EpiPen 2-Gerardo] 0.3 mg/0.3 mL auto-injector 0.3 mg IM Q10M PRN (Reason: anaphylaxis) 30 Days Qty: 2 RF: 1 Pulmicort Flexhaler 180 mcg/actuation Aerosol Powdr Breath Activated 1 inh INHALATION DAILY RF: 0 venlafaxine 150 mg Capsule,Extended Release 24hr 150 mg PO DAILY 30 Days Qty: 30 RF: 1 prazosin 1 mg capsule 1 mg PO BEDTIME 30 Days Qty: 30 RF: 1 trazodone 150 mg Tablet 150 mg PO BEDTIME 30 Days Qty: 30 RF: 1 folic acid 1 mg Tablet 1 mg PO DAILY 30 Days Qty: 30 RF: 1 fluoxetine [Prozac] 20 mg Capsule 20 mg PO DAILY 30 Days Qty: 30 RF: 1 metformin 500 mg tablet extended release 24hr 1,000 mg PO DAILY 30 Days Qty: 60 RF: 1 thiamine mononitrate (vit B1) [Vitamin B-1 (mononitrate)] 100 mg Tablet 100 mg PO DAILY 30 Days Qty: 30 RF: 1 methylprednisolone [Medrol (Gerardo)] 4 mg tablets,dose pack See Rx Instructions .ROUTE .COMPLEX Qty: 21 RF: 0 Discharge Orders: Discharge ED (Routine); Ordered 03/27/20 Ordered By: Chantale Singh Referrals: David Villar, [facility] [Primary Care Provider] - Coding Level of Care Code ED Planner/Scheduler for Chg K[facility]
[2020-03-27 06:22] VITALS: BP 136/84; PULSE 84; RESP 18; O2SAT 97
== END 2020-03-27 06:23 | disposition home or self-care (01) ==
PROVIDERS: Emergency Provider Physician Assistant; PCP Nurse Practitioner
DX: F10.920 Alcohol use, unspecified with intoxication, uncomplicated (principal); I10 Essential (primary) hypertension; Z86.19 Personal history of other infectious and parasitic diseases; F17.210 Nicotine dependence, cigarettes, uncomplicated
CPT/HCPCS: 12345; 99281

== ENCOUNTER 2020-03-27 18:23 | Emergency (ER) | payer MEDICAID, SELFPAY ==
[2020-03-27 18:31] VITALS: BP 137/92; PULSE 112; RESP 18; TEMP 36.3; O2SAT 93; BMI 46.3
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
--- NOTE | 2020-03-28 09:31 | PC.RESP ---
SMOKING CESSATION INFORMATION SENT TO PATIENT.
== END 2020-03-27 20:13 | disposition home or self-care (01) ==
PROVIDERS: Emergency Provider Emergency Medicine; PCP Nurse Practitioner
DX: T74.21XA Adult sexual abuse, confirmed, initial encounter (principal); I10 Essential (primary) hypertension; Z86.19 Personal history of other infectious and parasitic diseases; F17.210 Nicotine dependence, cigarettes, uncomplicated; Y07.50 Unspecified non-family member, perpetrator of maltreatment and neglect
CPT/HCPCS: 12345; 99281

== ENCOUNTER 2020-03-29 16:38 | Emergency (ER) | payer MEDICAID, SELFPAY ==
[2020-03-29 17:21] VITALS: BP 125/84; PULSE 98; RESP 12; TEMP 36.6; O2SAT 93; BMI 42.9
--- NOTE | 2020-03-29 17:46 | ED_ITS ---
HPI - Extremity Problem General: Chief complaint: Extremity Problem,Nontraumatic Stated complaint: NUMBNESS TO L ARM/LEG Time Seen by Provider: 03/29/20 17:46 Source: patient Mode of arrival: ambulatory Limitations: no limitations History of Present Illness: HPI Narrative: 29-year-old female is very well- known to the ER. She states she has numbness in her left pinky finger. She states that since resolved. She denies any injuries. Denies any worsening or improving factors. She states she has been drinking alcohol today. Associated symptoms: Deny chest pain, fever(s) or rash Review of Systems Const: Denies: fever(s), chills, body aches or change in appetite Eyes: Denies: blurry vision or eye discomfort ENMT: Denies: throat pain or dental pain Card: Denies: chest pain Resp: Denies: dyspnea GI: Denies: abdominal pain, nausea, vomiting or diarrhea : Denies: dysuria Musc: Denies: neck pain or back pain Skin/Breast: Denies: rash Neuro: Denies: headache(s) Psych: Denies: depression Dg/Lymph: Denies: easy bruising All/Imm: Denies: urticaria PFSH ED PFSH: Medical History Alcohol abuse with alcohol-induced mood disorder Essential (primary) hypertension not on any chronic treatment 09/26 Family history of alpha 1 antitrypsin deficiency Fibromyalgia Generalized anxiety disorder H/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, includes meth, heroin, others, on buprenorphine Hepatitis C antibody positive in blood Hx of abscess of skin and subcutaneous tissue right arm Major depressive disorder, recurrent, moderate Nontoxic thyroid nodule Opioid abuse Polycystic ovarian syndrome polycystic ovaries not notated on CT abdomen/pelvis 01/26 Tobacco dependency Unspecified asthma, uncomplicated onset in childhood Surgical History Hx of cholecystectomy Family History Other Chytp-1-[id number] deficiency Drug abuse, amphetamine type Hypertension Social History Smoking and tobacco status: current every day smoker cigarettes Packs smoked per day: 1.5 Years cigarettes smoked: 15 Quit status (tobacco): considering quitting Second hand smoke exposure: Yes Smoking risk assessment/counseling performed?: Yes Alcohol intake: current Alcohol intake frequency: 3 or more drinks per day Alcohol type: hard liquor Desire information about alcohol rehabilitation?: Yes Counseling given: No Desire information about substance/drug rehabilitation?: No Counseling given: No Other details last substance use: Has used methamphetamine, heroin, pain medications. Adopted: No Caregiver/support person: No Lives independently: Yes Household members: friend(s) Housing: Manufactured/Mobile home Marital status: Single Number of children: 2 service: No Current occupational status: unemployed History of recent travel: No Current gender identity: Female Female Reproductive History: Date of last menstrual period: 03/18/20 Para: 2 Physical Exam Const: COMMON NORMALS: no acute distress, patient oriented x3 and healthy appearing HENMT: COMMON NORMALS: normocephalic and atraumatic HEAD & SCALP: normo cephalic and atraumatic Eye: COMMON NORMALS: Equal, round and reactive pupils present and EOMs intact bilaterally PUPIL: Yes Equal, round and reactive pupils present Neck/C-Spine: COMMON NORMALS: full ROM and supple Chest: COMMONS NORMALS: normal inspection of the chest and normal palpation of entire chest wall Resp: COMMON NORMALS: normal respiratory effort, No retractions, No use of accessory muscles and clear to auscultation bilaterally AUSCULTATION: clear to auscultation bilaterally Cardio: COMMON NORMALS: regular rate, regular rhythm and No murmurs present (Cardio) RATE: regular rate RHYTHM: regular rhythm GI: COMMON NORMALS: Normal to inspection, nondistended, normoactive bowel sounds present, Soft to palpation, non-tender and no masses PALPATION: Yes Soft to palpation Extremity: COMMON NORMALS: normal to inspection and full ROM Neuro: COMMON NORMALS: patient oriented x3, moves all extremities and no focal motor deficits Psych: COMMON NORMALS: mental status grossly normal, Normal thought process present and cooperative THOUGHT PROCESS: Normal thought process present Skin: COMMON NORMALS: no rashes or lesions noted and no wounds GENERAL SKIN EXAM: no rashes or lesions noted Course Vital Signs: Vital signs: Vital Signs Temperature 97.9 F 03/29/20 17:21 Pulse Rate 98 03/29/20 17:21 Respiratory Rate 12 03/29/20 17:21 Blood Pressure 125/84 03/29/20 17:21 Pulse Oximetry 93 03/29/20 17:21 MDM - Extremity (Nontraumatic) MDM Narrative: Medical decision making narrative: Patient presents here with finger pain fall with alcohol toxic agent. She is well-appearing here and able to ambulate. Patient is stable for discharge. Exam here is benign. Discharge Plan Discharge Patient Disposition: Home Clinical Impression: Alcohol intoxication, Finger pain, left Condition: Stable Prescriptions: No Action albuterol sulfate [ProAir HFA] 90 mcg/actuation HFA aerosol inhaler 2 puff inhalation QID PRN (Reason: shortness of breath or wheezing) 30 Days Qty: 6.7 RF: 2 prednisone 10 mg tablets,dose pack See Rx Instructions PO PER PKG DIR Qty: 21 RF: 0 cyclobenzaprine 10 mg tablet 10 mg PO BID PRN (Reason: muscle spasm) 30 Days Qty: 60 RF: 0 (DME) nebulizer accessories Kit See Rx Instructions .ROUTE .MEDSUPPLY Qty: 1 RF: 0 fluconazole [Diflucan] 150 mg tablet 150 mg PO ONCE Qty: 1 RF: 0 buprenorphine-naloxone 8-2 mg tablet, sublingual 1 tab SUBLINGUAL BID RF: 0 multivitamin with folic acid [Thera] 400 mcg Tablet 1 tab PO DAILY 30 Days Qty: 30 RF: 1 albuterol sulfate 2.5 mg /3 mL (0.083 %) solution for nebulization 2.5 mg INHALATION QID PRN (Reason: shortness of breath or wheezing) 14 Days Qty: 75 RF: 2 epinephrine [EpiPen 2-Gerardo] 0.3 mg/0.3 mL auto-injector 0.3 mg IM Q10M PRN (Reason: anaphylaxis) 30 Days Qty: 2 RF: 1 Pulmicort Flexhaler 180 mcg/actuation Aerosol Powdr Breath Activated 1 inh INHALATION DAILY RF: 0 venlafaxine 150 mg Capsule,Extended Release 24hr 150 mg PO DAILY 30 Days Qty: 30 RF: 1 prazosin 1 mg capsule 1 mg PO BEDTIME 30 Days Qty: 30 RF: 1 trazodone 150 mg Tablet 150 mg PO BEDTIME 30 Days Qty: 30 RF: 1 folic acid 1 mg Tablet 1 mg PO DAILY 30 Days Qty: 30 RF: 1 fluoxetine [Prozac] 20 mg Capsule 20 mg PO DAILY 30 Days Qty: 30 RF: 1 metformin 500 mg tablet extended release 24hr 1,000 mg PO DAILY 30 Days Qty: 60 RF: 1 thiamine mononitrate (vit B1) [Vitamin B-1 (mononitrate)] 100 mg Tablet 100 mg PO DAILY 30 Days Qty: 30 RF: 1 methylprednisolone [Medrol (Gerardo)] 4 mg tablets,dose pack See Rx Instructions .ROUTE .COMPLEX Qty: 21 RF: 0 Discharge Orders: Discharge ED (Routine); Ordered 03/29/20 Ordered By: Niranjan Martinez Referrals: David Villar, INSTRUCTIONAL SUPPORT SPECIALIST-C [Primary Care Provider] - 1-3 days Discharge Diet: Advance as tolerated Discharge Activity: Resume usual activity Coding Level of Care Code ED Product Marketing Coordinator for Bartolo Lund
== END 2020-03-29 18:35 | disposition home or self-care (01) ==
PROVIDERS: Emergency Provider Emergency Medicine; PCP Nurse Practitioner
DX: F10.129 Alcohol abuse with intoxication, unspecified (principal); M79.645 Pain in left finger(s); I10 Essential (primary) hypertension; Z86.19 Personal history of other infectious and parasitic diseases; F17.210 Nicotine dependence, cigarettes, uncomplicated
CPT/HCPCS: 12345; 99281

== ENCOUNTER 2020-04-01 10:35 | Inpatient (IN) | payer MEDICAID, SELFPAY ==
[2020-04-01] VITALS (11 sets, daily range): BP systolic 163–218; BP diastolic 102–118; PULSE 77–101; RESP 17–20; TEMP 36.8–38.1; O2SAT 96–99; BMI 51.5
--- NOTE | 2020-04-01 10:53 | XRR_ITS ---
PROCEDURE INFORMATION: Exam: XR Chest, 1 View Exam date and time: 04/01/2020 11:08 AM Age: 29 years old Clinical indication: Shortness of breath; Additional info: Covid TECHNIQUE: Imaging protocol: XR of the chest Views: 1 view. COMPARISON: CR XR chest 1V portable [id number] 03/26/2020 2:56 PM FINDINGS: Lungs: Unremarkable. No consolidation. Pleural space: Unremarkable. No pleural effusion. No pneumothorax. Heart/Mediastinum: Unremarkable. No cardiomegaly. Bones/joints: Unremarkable. XR/XR chest 1V portable [id number] IMPRESSION: No acute findings.
--- NOTE | 2020-04-01 10:54 | W.ED.COVID ---
Documented by User: ANDI Benitez 04/01/20 13:13 HPI - COVID General: Chief Complaint: COVID symptoms Stated Complaint: COVID+ Time Seen by Provider: 04/01/20 10:52 Source: patient Mode of arrival: ambulatory Limitations: no limitations History of Present Illness: HPI Narrative: Patient is a 29-year-old female who presents to ED today wanting evaluation for COVID. Patient is complaining of nausea and vomiting as well as body aches. No fevers. She states she tested positive approximately 6 days ago. She is not complaining of shortness of breath or cough. She clinically appears in no acute distress. She is not complaining of chest pain. Patient is a daily heavy alcoholic. She tells me she has not drank since yesterday morning. She states she is out of money and the Count Includes [facility] said they would fine her if they saw her in public (patient had been spotted several times in public with no mask knowing she was COVID +). Patient states she woke up this morning in a pile of vomit . She reports previous withdraw seizures and is scared she is going to have one now. She is also complaining of a NARVAEZ and left arm paresthesias. MD complaint: known COVID positive Prior covid testing: yes, results known COVID 19 common symptoms: positive body aches, headache(s), nausea and vomiting; negative fever(s), productive cough, dyspnea, throat pain or diarrhea COVID 19 other sytmptoms: positive chest pain COVID Results: SARS-CoV-2 Antigen (Rapid) Positive (Negative) H 03/26/20 10:50 03/26/20 SARS-CoV-2 RNA (RT-PCR) Not detected (NOT DETECTED) 01/06/20 15:34 01/06/20 Review of Systems Const: Reports: body aches; Denies: fever(s) Eyes: Denies: change in vision ENMT: Denies: throat pain or odynophagia Card: Reports: chest pain; Denies: palpitations, irregular heart rhythm, edema, swelling of feet/ankles, lightheadedness, syncope, pre-syncope, dyspnea on exertion, orthopnea or leg pain with exertion Resp: Denies: dyspnea, productive cough or chest congestion GI: Reports: nausea and vomiting; Denies: abdominal pain or diarrhea : Denies: flank pain, difficulty voiding, dysuria, urinary frequency or urinary urgency Musc: Denies: neck pain, back pain, extremity pain, extremity swelling, joint pain or joint swelling Skin/Breast: Denies: rash Neuro: Reports: headache(s); Denies: weakness in extremities PFSH ED PFSH: Medical History Alcohol abuse with alcohol-induced mood disorder Essential (primary) hypertension not on any chronic treatment 09/26 Family history of alpha 1 antitrypsin deficiency Fibromyalgia Generalized anxiety disorder H/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, includes meth, heroin, others, on buprenorphine Hepatitis C antibody positive in blood Hx of abscess of skin and subcutaneous tissue right arm Major depressive disorder, recurrent, moderate Nontoxic thyroid nodule Opioid abuse Polycystic ovarian syndrome polycystic ovaries not notated on CT abdomen/pelvis 01/26 Tobacco dependency Unspecified asthma, uncomplicated onset in childhood Surgical History Hx of cholecystectomy Family History Other [id number] deficiency Drug abuse, amphetamine type Hypertension Social History Smoking and tobacco status: current every day smoker cigarettes Packs smoked per day: 1.5 Years cigarettes smoked: 15 Quit status (tobacco): considering quitting Second hand smoke exposure: Yes Smoking risk assessment/counseling performed?: Yes Alcohol intake: current Alcohol intake frequency: 3 or more drinks per day Alcohol type: hard liquor Desire information about alcohol rehabilitation?: Yes Counseling given: No Desire information about substance/drug rehabilitation?: No Counseling given: No Other details last substance use: Has used methamphetamine, heroin, pain medications. Adopted: No Caregiver/support person: No Lives independently: Yes Household members: friend(s) Housing: Manufactured/Mobile home Marital status: Single Number of children: 2 service: No Current occupational status: unemployed History of recent travel: No Current gender identity: Female Female Reproductive History: Date of last menstrual period: 03/18/20 Para: 2 Physical Exam Const: COMMON NORMALS: no acute distress, patient oriented x3, no limitations and alert GENERAL APPEARANCE: cooperative NUTRITIONAL APPEARANCE: obese morbidly obese ORIENTATION/CONSCIOUSNESS: Yes awake, Yes oriented to person, Yes oriented to place and Yes oriented to time HENMT: COMMON NORMALS: normocephalic and atraumatic HEAD & SCALP: normocephalic and atraumatic Resp: COMMON NORMALS: normal respiratory effort and clear to auscultation bilaterally AUSCULTATION: clear to auscultation bilaterally Cardio: COMMON NORMALS: regular rate and regular rhythm RATE: regular rate RHYTHM: regular rhythm GI: COMMON NORMALS: Normal to inspection, nondistended, normoactive bowel sounds present, Soft to palpation, non-tender, No hepatosplenomegaly present and no masses PALPATION: Yes Soft to palpation and Yes No hepatosplenomegaly present : COMMON NORMALS: Yes no CVA tenderness BLADDER/KIDNEY EXAM: Yes no CVA tenderness Back/Pelvis: COMMON NORMALS: no CVA tenderness Extremity: COMMON NORMALS: no joint enlargement, no clubbing, cyanosis or edema, no calf tenderness and no pedal edema Neuro: ADWOA COMA SCALE: document GCS findings Adwoa coma scale eye opening: Spontaneous Adwoa coma scale verbal response: Orientated [place] coma scale motor response: Obey commands Adwoa coma scale total score: 15 COMMON NORMALS: patient oriented x3, CN's II-XII intact bilaterally, moves all extremities, no focal motor deficits, no sensory deficits noted and gait normal SENSORIUM/ORIENTATION: Yes alert, Yes oriented to person, Yes oriented to place and Yes oriented to time Skin: COMMON NORMALS: no rashes or lesions noted GENERAL SKIN EXAM: no rashes or lesions noted Course Vital Signs: Vital signs: Vital Signs Temperature 98.6 F 04/02/20 00:00 Pulse Rate 71 04/02/20 00:00 Respiratory Rate 16 04/02/20 00:00 Blood Pressure 137/92 04/02/20 00:00 Pulse Oximetry 94 04/02/20 00:00 MDM - COVID MDM Narrative: Medical decision making narrative: Patient is stable from a COVID standpoint however she arrives extremely hypertensive at 218/118. She is complaining of nausea, vomiting, left arm paresthesias, and a headache. She reports previous history of withdrawal seizures. At this point her CIWA score is still mild withdraw but she has no means to obtain alcohol over the next few days therefore I think discharging her would be dangerous. I have spoken to Dr. Robles who will speak to the hospitalist for possible admission for alcohol withdrawal. Lab Data: Labs: Lab Results 04/01/20 04/01/20 04/01/20 Range/Units 11:10 11:10 11:10 WBC 2.4 L (4.0-10.0) 10^3/ uL RBC 4.33 (4.1-5.3) 10^6/u L Hgb 14.4 (11.5-15.3) g/dL Hct 44.0 (37.0-47.0) % MCV 101.6 H (81-99) fL MCH 33.3 (28.0-34.0) pg MCHC 32.7 (30.0-36.0) g/dL RDW 14.6 (12.1-15.1) % Plt Count 112 L (130-400) 10^3/c mm MPV 9.6 (7.4-10.4) fL Neut % (Auto) 49.2 % Lymph % (Auto) 38.5 % [place] % (Auto) 8.6 % Eos % (Auto) 2.9 % Baso % (Auto) 0.4 % Neut # (Auto) 1.20 L (1.8-7.7) 10^3/u L Lymph # (Auto) 0.9 (0.8-4.8) 10^3/u L [place] # (Auto) 0.2 (0.2-0.9) 10^3/u L Eos # (Auto) 0.1 (0.0-0.8) 10^3/u L Baso # (Auto) 0.0 (0.0-0.1) 10^3/u L Nucleated RBC % (a uto) 0 % Nucleated RBCs # 0.0 /100WBC D-Dimer 1.27 H (0-0.59) ug/mIFE U Sodium 138 (136-145) mmol/L Potassium 4.0 (3.5-5.1) mmol/L Chloride 100 (98-107) mmol/L Carbon Dioxide 30 H (22-29) mmol/L Anion Gap 12.0 (5-19) BUN 5 L (6-20) mg/dL Creatinine 0.7 (0.5-0.9) mg/dL GFR Calculation 98.3 (90-130) mL/min Glucose 120 H (65-115) mg/dL Calculated Osmolal ity 284 L (285-295) mOsm/k g Lactic Acid (0.5-2.2) mmol/L Calcium 8.6 (8.5-10.5) mg/dL Total Bilirubin 0.6 (0.15-1.2) mg/dL AST 118 H (0-32) U/L ALT 96 H (0-33) U/L Alkaline Phosphata se 119 H (35-105) IU/L C-Reactive Protein 0.9 (0.0-4.9) mg/L Total Protein 7.4 (6.6-8.7) g/dL Albumin 3.8 (3.5-5.2) g/dL Globulin 3.6 (1.3-4.6) g/dL Procalcitonin 0.04 (0-0.5) ng/mL HCG, Qual (Negative) Urine Color (Yellow) Urine Appearance (CLEAR) Urine pH (5-7) Ur Specific Gravit y (1.005-1.030) Urine Protein (Negative) Urine Glucose (UA) (Normal) Urine Ketones (Negative) Urine Blood (Negative) Urine Nitrate (Negative) Urine Bilirubin (Negative) Urine Urobilinogen (Negative) mg/dL Ur Leukocyte Louisa ase (Negative) Urine RBC (0-2) /hpf Urine WBC (0-5) /hpf Ur Squamous Epith Cells (0-5) /hpf Amorphous Sediment Urine Bacteria (NONE) /hpf Urine Opiates Scre en (Negative) ng/mL Ur Barbiturates Sc reen (Negative) ng/mL Ur Phencyclidine S crn (Negative) ng/mL Ur Amphetamines Sc reen (Negative) ng/mL U Benzodiazepines Scrn (Negative) ng/mL Urine Cocaine Scre en (Negative) ng/mL U Marijuana (THC) Screen (Negative) ng/mL Ethyl Alcohol < 10 (0-10) mg/dL 04/01/20 04/01/20 04/01/20 Range/Units 11:10 11:20 11:20 WBC (4.0-10.0) 10^3/ uL RBC (4.1-5.3) 10^6/u L Hgb (11.5-15.3) g/dL Hct (37.0-47.0) % MCV (81-99) fL MCH (28.0-34.0) pg MCHC (30.0-36.0) g/dL RDW (12.1-15.1) % Plt Count (130-400) 10^3/c mm MPV (7.4-10.4) fL Neut % (Auto) % Lymph % (Auto) % [place] % (Auto) % Eos % (Auto) % Baso % (Auto) % Neut # (Auto) (1.8-7.7) 10^3/u L Lymph # (Auto) (0.8-4.8) 10^3/u L [place] # (Auto) (0.2-0.9) 10^3/u L Eos # (Auto) (0.0-0.8) 10^3/u L Baso # (Auto) (0.0-0.1) 10^3/u L Nucleated RBC % (a uto) % Nucleated RBCs # /100WBC D-Dimer (0-0.59) ug/mIFE U Sodium (136-145) mmol/L Potassium (3.5-5.1) mmol/L Chloride (98-107) mmol/L Carbon Dioxide (22-29) mmol/L Anion Gap (5-19) BUN (6-20) mg/dL Creatinine (0.5-0.9) mg/dL GFR Calculation (90-130) mL/min Glucose (65-115) mg/dL Calculated Osmolal ity (285-295) mOsm/k g Lactic Acid 1.5 (0.5-2.2) mmol/L Calcium (8.5-10.5) mg/dL Total Bilirubin (0.15-1.2) mg/dL AST (0-32) U/L ALT (0-33) U/L Alkaline Phosphata se (35-105) IU/L C-Reactive Protein (0.0-4.9) mg/L Total Protein (6.6-8.7) g/dL Albumin (3.5-5.2) g/dL Globulin (1.3-4.6) g/dL Procalcitonin (0-0.5) ng/mL HCG, Qual Negative (Negative) Urine Color (Yellow) Urine Appearance (CLEAR) Urine pH (5-7) Ur Specific Gravit y (1.005-1.030) Urine Protein (Negative) Urine Glucose (UA) (Normal) Urine Ketones (Negative) Urine Blood (Negative) Urine Nitrate (Negative) Urine Bilirubin (Negative) Urine Urobilinogen (Negative) mg/dL Ur Leukocyte Louisa ase (Negative) Urine RBC (0-2) /hpf Urine WBC (0-5) /hpf Ur Squamous Epith Cells (0-5) /hpf Amorphous Sediment Urine Bacteria (NONE) /hpf Urine Opiates Scre en Negative (Negative) ng/mL Ur Barbiturates Sc reen Negative (Negative) ng/mL Ur Phencyclidine S crn Negative (Negative) ng/mL Ur Amphetamines Sc reen Negative (Negative) ng/mL U Benzodiazepines Scrn Negative (Negative) ng/mL Urine Cocaine Scre en Negative (Negative) ng/mL U Marijuana (THC) Screen Negative (Negative) ng/mL Ethyl Alcohol (0-10) mg/dL 04/01/20 Range/Units 11:20 WBC (4.0-10.0) 10^3/ uL RBC (4.1-5.3) 10^6/u L Hgb (11.5-15.3) g/dL Hct (37.0-47.0) % MCV (81-99) fL MCH (28.0-34.0) pg MCHC (30.0-36.0) g/dL RDW (12.1-15.1) % Plt Count (130-400) 10^3/c mm MPV (7.4-10.4) fL Neut % (Auto) % Lymph % (Auto) % [place] % (Auto) % Eos % (Auto) % Baso % (Auto) % Neut # (Auto) (1.8-7.7) 10^3/u L Lymph # (Auto) (0.8-4.8) 10^3/u L [place] # (Auto) (0.2-0.9) 10^3/u L Eos # (Auto) (0.0-0.8) 10^3/u L Baso # (Auto) (0.0-0.1) 10^3/u L Nucleated RBC % (a uto) % Nucleated RBCs # /100WBC D-Dimer (0-0.59) ug/mIFE U Sodium (136-145) mmol/L Potassium (3.5-5.1) mmol/L Chloride (98-107) mmol/L Carbon Dioxide (22-29) mmol/L Anion Gap (5-19) BUN (6-20) mg/dL Creatinine (0.5-0.9) mg/dL GFR Calculation (90-130) mL/min Glucose (65-115) mg/dL Calculated Osmolal ity (285-295) mOsm/k g Lactic Acid (0.5-2.2) mmol/L Calcium (8.5-10.5) mg/dL Total Bilirubin (0.15-1.2) mg/dL AST (0-32) U/L ALT (0-33) U/L Alkaline Phosphata se (35-105) IU/L C-Reactive Protein (0.0-4.9) mg/L Total Protein (6.6-8.7) g/dL Albumin (3.5-5.2) g/dL Globulin (1.3-4.6) g/dL Procalcitonin (0-0.5) ng/mL HCG, Qual (Negative) Urine Color Dark yellow (Yellow) Urine Appearance Clear (CLEAR) Urine pH 6 (5-7) Ur Specific Gravit y 1.020 (1.005-1.030) Urine Protein Trace (Negative) Urine Glucose (UA) Norm (Normal) Urine Ketones Negative (Negative) Urine Blood Neg (Negative) Urine Nitrate Negative (Negative) Urine Bilirubin Neg (Negative) Urine Urobilinogen 1 H (Negative) mg/dL Ur Leukocyte Louisa ase Negative (Negative) Urine RBC None (0-2) /hpf Urine WBC 5-10 H (0-5) /hpf Ur Squamous Epith Cells 10-15 H (0-5) /hpf Amorphous Sediment Not Reportable Urine Bacteria 1+ H (NONE) /hpf Urine Opiates Scre en (Negative) ng/mL Ur Barbiturates Sc reen (Negative) ng/mL Ur Phencyclidine S crn (Negative) ng/mL Ur Amphetamines Sc reen (Negative) ng/mL U Benzodiazepines Scrn (Negative) ng/mL Urine Cocaine Scre en (Negative) ng/mL U Marijuana (THC) Screen (Negative) ng/mL Ethyl Alcohol (0-10) mg/dL Imaging Data: CXR: Radiologist's impression: [address] [place] [address] XRay Report Signed Patient: Wendy De La Cruz Unit #: [id number] : 1990 Age/Sex: 29 / F ADM Date: 04/01/20 Loc: ER Room/Bed: Attending Dr: Ordering Provider/Ordering MD: Chantale Singh Date of Service: 04/01/20 Procedure(s): XR chest 1V portable [id number] Accession Number(s): [id number] Report Number: [id number] PROCEDURE INFORMATION: Exam: XR Chest, 1 View Exam date and time: 04/01/2020 11:08 AM Age: 29 years old Clinical indication: Shortness of breath; Additional info: Covid TECHNIQUE: Imaging protocol: XR of the chest Views: 1 view. COMPARISON: CR XR chest 1V portable [id number] 03/26/2020 2:56 PM FINDINGS: Lungs: Unremarkable. No consolidation. Pleural space: Unremarkable. No pleural effusion. No pneumothorax. Heart/Mediastinum: Unremarkable. No cardiomegaly. Bones/joints: Unremarkable. XR/XR chest 1V portable [id number] IMPRESSION: No acute findings. Dictated By: Shilo Otto Signed By: Shilo Otto Signed Date/Time: 04/01/20 1138 DD/ 1137 EKG Data: EKG 1: EKG interpretation date: 04/01/20 EKG interpretation time: 11:08 Interpretation: Sinus rhythm Rate [address] elevation or depression changes noted COVID Results: SARS-CoV-2 Antigen (Rapid) Positive (Negative) H 03/26/20 10:50 03/26/20 SARS-CoV-2 RNA (RT-PCR) Not detected (NOT DETECTED) 01/06/20 15:34 01/06/20 Discharge Plan Discharge Patient Disposition: Admitted As Inpatient Admit Provider: Abiel Persaud Clinical Impression: Alcohol withdrawal, COVID-19 Condition: Stable Coding Level of Care Code ED Student Records Coordinator for Chg Fwd Exam Comprehensive Documented by User: Carmen Robles MD, [facility] [place] 04/02/20 00:32 HPI - COVID General: Chief Complaint: COVID symptoms Stated Complaint: COVID+ Time Seen by Provider: 04/01/20 10:52 COVID Results: SARS-CoV-2 Antigen (Rapid) Positive (Negative) H 03/26/20 10:50 03/26/20 SARS-CoV-2 RNA (RT-PCR) Not detected (NOT DETECTED) 01/06/20 15:34 01/06/20 PFSH ED PFSH: Medical History Alcohol abuse with alcohol-induced mood disorder Essential (primary) hypertension not on any chronic treatment 09/26 Family history of alpha 1 antitrypsin deficiency Fibromyalgia Generalized anxiety disorder H/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, includes meth, heroin, others, on buprenorphine Hepatitis C antibody positive in blood Hx of abscess of skin and subcutaneous tissue right arm Major depressive disorder, recurrent, moderate Nontoxic thyroid nodule Opioid abuse Polycystic ovarian syndrome polycystic ovaries not notated on CT abdomen/pelvis 01/26 Tobacco dependency Unspecified asthma, uncomplicated onset in childhood Surgical History Hx of cholecystectomy Family History Other [id number] deficiency Drug abuse, amphetamine type Hypertension Social History Smoking and tobacco status: current every day smoker cigarettes Packs smoked per day: 1.5 Years cigarettes smoked: 15 Quit status (tobacco): considering quitting Second hand smoke exposure: Yes Smoking risk assessment/counseling performed?: Yes Alcohol intake: current Alcohol intake frequency: 3 or more drinks per day Alcohol type: hard liquor Desire information about alcohol rehabilitation?: Yes Counseling given: No Desire information about substance/drug rehabilitation?: No Counseling given: No Other details last substance use: Has used methamphetamine, heroin, pain medications. Adopted: No Caregiver/support person: No Lives independently: Yes Household members: friend(s) Housing: Manufactured/Mobile home Marital status: Single Number of children: 2 service: No Current occupational status: unemployed History of recent travel: No Current gender identity: Female Course Vital Signs: Vital signs: Vital Signs Temperature 98.6 F 04/02/20 00:00 Pulse Rate 71 04/02/20 00:00 Respiratory Rate 16 04/02/20 00:00 Blood Pressure 137/92 04/02/20 00:00 Pulse Oximetry 94 04/02/20 00:00 MDM - COVID MDM Narrative: Medical decision making narrative: See the midlevel providers note for complete history and physical examination. Essentially this is a 29-year-old female who is a chronic alcoholic and who was recently diagnosed with COVID-19. She had apparently not been compliant with self-isolation eventually [facility] that she would be fine if she continued to expose other people to the virus. She therefore has been at home and been unable to purchase alcohol. She has been 2 days off of alcohol and she is at significant risk for alcohol withdrawal seizures. Because of this I am concerned and she is admitted to the hospital for management of alcohol withdrawal. Regarding her Covid infection she is stable and only mildly symptomatic and does not need significant intervention. Medical Records: Attestation: I reviewed the patient's medical records. Lab Data: Attestation: I reviewed the patient's lab results. Labs: Lab Results 04/01/20 04/01/20 04/01/20 Range/Units 11:10 11:10 11:10 WBC 2.4 L (4.0-10.0) 10^3/ uL RBC 4.33 (4.1-5.3) 10^6/u L Hgb 14.4 (11.5-15.3) g/dL Hct 44.0 (37.0-47.0) % MCV 101.6 H (81-99) fL MCH 33.3 (28.0-34.0) pg MCHC 32.7 (30.0-36.0) g/dL RDW 14.6 (12.1-15.1) % Plt Count 112 L (130-400) 10^3/c mm MPV 9.6 (7.4-10.4) fL Neut % (Auto) 49.2 % Lymph % (Auto) 38.5 % [place] % (Auto) 8.6 % Eos % (Auto) 2.9 % Baso % (Auto) 0.4 % Neut # (Auto) 1.20 L (1.8-7.7) 10^3/u L Lymph # (Auto) 0.9 (0.8-4.8) 10^3/u L [place] # (Auto) 0.2 (0.2-0.9) 10^3/u L Eos # (Auto) 0.1 (0.0-0.8) 10^3/u L Baso # (Auto) 0.0 (0.0-0.1) 10^3/u L Nucleated RBC % (a uto) 0 % Nucleated RBCs # 0.0 /100WBC D-Dimer 1.27 H (0-0.59) ug/mIFE U Sodium 138 (136-145) mmol/L Potassium 4.0 (3.5-5.1) mmol/L Chloride 100 (98-107) mmol/L Carbon Dioxide 30 H (22-29) mmol/L Anion Gap 12.0 (5-19) BUN 5 L (6-20) mg/dL Creatinine 0.7 (0.5-0.9) mg/dL GFR Calculation 98.3 (90-130) mL/min Glucose 120 H (65-115) mg/dL Calculated Osmolal ity 284 L (285-295) mOsm/k g Lactic Acid (0.5-2.2) mmol/L Calcium 8.6 (8.5-10.5) mg/dL Total Bilirubin 0.6 (0.15-1.2) mg/dL AST 118 H (0-32) U/L ALT 96 H (0-33) U/L Alkaline Phosphata se 119 H (35-105) IU/L C-Reactive Protein 0.9 (0.0-4.9) mg/L Total Protein 7.4 (6.6-8.7) g/dL Albumin 3.8 (3.5-5.2) g/dL Globulin 3.6 (1.3-4.6) g/dL Procalcitonin 0.04 (0-0.5) ng/mL HCG, Qual (Negative) Urine Color (Yellow) Urine Appearance (CLEAR) Urine pH (5-7) Ur Specific Gravit y (1.005-1.030) Urine Protein (Negative) Urine Glucose (UA) (Normal) Urine Ketones (Negative) Urine Blood (Negative) Urine Nitrate (Negative) Urine Bilirubin (Negative) Urine Urobilinogen (Negative) mg/dL Ur Leukocyte Louisa ase (Negative) Urine RBC (0-2) /hpf Urine WBC (0-5) /hpf Ur Squamous Epith Cells (0-5) /hpf Amorphous Sediment Urine Bacteria (NONE) /hpf Urine Opiates Scre en (Negative) ng/mL Ur Barbiturates Sc reen (Negative) ng/mL Ur Phencyclidine S crn (Negative) ng/mL Ur Amphetamines Sc reen (Negative) ng/mL U Benzodiazepines Scrn (Negative) ng/mL Urine Cocaine Scre en (Negative) ng/mL U Marijuana (THC) Screen (Negative) ng/mL Ethyl Alcohol < 10 (0-10) mg/dL 04/01/20 04/01/20 04/01/20 Range/Units 11:10 11:20 11:20 WBC (4.0-10.0) 10^3/ uL RBC (4.1-5.3) 10^6/u L Hgb (11.5-15.3) g/dL Hct (37.0-47.0) % MCV (81-99) fL MCH (28.0-34.0) pg MCHC (30.0-36.0) g/dL RDW (12.1-15.1) % Plt Count (130-400) 10^3/c mm MPV (7.4-10.4) fL Neut % (Auto) % Lymph % (Auto) % [place] % (Auto) % Eos % (Auto) % Baso % (Auto) % Neut # (Auto) (1.8-7.7) 10^3/u L Lymph # (Auto) (0.8-4.8) 10^3/u L [place] # (Auto) (0.2-0.9) 10^3/u L Eos # (Auto) (0.0-0.8) 10^3/u L Baso # (Auto) (0.0-0.1) 10^3/u L Nucleated RBC % (a uto) % Nucleated RBCs # /100WBC D-Dimer (0-0.59) ug/mIFE U Sodium (136-145) mmol/L Potassium (3.5-5.1) mmol/L Chloride (98-107) mmol/L Carbon Dioxide (22-29) mmol/L Anion Gap (5-19) BUN (6-20) mg/dL Creatinine (0.5-0.9) mg/dL GFR Calculation (90-130) mL/min Glucose (65-115) mg/dL Calculated Osmolal ity (285-295) mOsm/k g Lactic Acid 1.5 (0.5-2.2) mmol/L Calcium (8.5-10.5) mg/dL Total Bilirubin (0.15-1.2) mg/dL AST (0-32) U/L ALT (0-33) U/L Alkaline Phosphata se (35-105) IU/L C-Reactive Protein (0.0-4.9) mg/L Total Protein (6.6-8.7) g/dL Albumin (3.5-5.2) g/dL Globulin (1.3-4.6) g/dL Procalcitonin (0-0.5) ng/mL HCG, Qual Negative (Negative) Urine Color (Yellow) Urine Appearance (CLEAR) Urine pH (5-7) Ur Specific Gravit y (1.005-1.030) Urine Protein (Negative) Urine Glucose (UA) (Normal) Urine Ketones (Negative) Urine Blood (Negative) Urine Nitrate (Negative) Urine Bilirubin (Negative) Urine Urobilinogen (Negative) mg/dL Ur Leukocyte Louisa ase (Negative) Urine RBC (0-2) /hpf Urine WBC (0-5) /hpf Ur Squamous Epith Cells (0-5) /hpf Amorphous Sediment Urine Bacteria (NONE) /hpf Urine Opiates Scre en Negative (Negative) ng/mL Ur Barbiturates Sc reen Negative (Negative) ng/mL Ur Phencyclidine S crn Negative (Negative) ng/mL Ur Amphetamines Sc reen Negative (Negative) ng/mL U Benzodiazepines Scrn Negative (Negative) ng/mL Urine Cocaine Scre en Negative (Negative) ng/mL U Marijuana (THC) Screen Negative (Negative) ng/mL Ethyl Alcohol (0-10) mg/dL 04/01/20 Range/Units 11:20 WBC (4.0-10.0) 10^3/ uL RBC (4.1-5.3) 10^6/u L Hgb (11.5-15.3) g/dL Hct (37.0-47.0) % MCV (81-99) fL MCH (28.0-34.0) pg MCHC (30.0-36.0) g/dL RDW (12.1-15.1) % Plt Count (130-400) 10^3/c mm MPV (7.4-10.4) fL Neut % (Auto) % Lymph % (Auto) % [place] % (Auto) % Eos % (Auto) % Baso % (Auto) % Neut # (Auto) (1.8-7.7) 10^3/u L Lymph # (Auto) (0.8-4.8) 10^3/u L [place] # (Auto) (0.2-0.9) 10^3/u L Eos # (Auto) (0.0-0.8) 10^3/u L Baso # (Auto) (0.0-0.1) 10^3/u L Nucleated RBC % (a uto) % Nucleated RBCs # /100WBC D-Dimer (0-0.59) ug/mIFE U Sodium (136-145) mmol/L Potassium (3.5-5.1) mmol/L Chloride (98-107) mmol/L Carbon Dioxide (22-29) mmol/L Anion Gap (5-19) BUN (6-20) mg/dL Creatinine (0.5-0.9) mg/dL GFR Calculation (90-130) mL/min Glucose (65-115) mg/dL Calculated Osmolal ity (285-295) mOsm/k g Lactic Acid (0.5-2.2) mmol/L Calcium (8.5-10.5) mg/dL Total Bilirubin (0.15-1.2) mg/dL AST (0-32) U/L ALT (0-33) U/L Alkaline Phosphata se (35-105) IU/L C-Reactive Protein (0.0-4.9) mg/L Total Protein (6.6-8.7) g/dL Albumin (3.5-5.2) g/dL Globulin (1.3-4.6) g/dL Procalcitonin (0-0.5) ng/mL HCG, Qual (Negative) Urine Color Dark yellow (Yellow) Urine Appearance Clear (CLEAR) Urine pH 6 (5-7) Ur Specific Gravit y 1.020 (1.005-1.030) Urine Protein Trace (Negative) Urine Glucose (UA) Norm (Normal) Urine Ketones Negative (Negative) Urine Blood Neg (Negative) Urine Nitrate Negative (Negative) Urine Bilirubin Neg (Negative) Urine Urobilinogen 1 H (Negative) mg/dL Ur Leukocyte Louisa ase Negative (Negative) Urine RBC None (0-2) /hpf Urine WBC 5-10 H (0-5) /hpf Ur Squamous Epith Cells 10-15 H (0-5) /hpf Amorphous Sediment Not Reportable Urine Bacteria 1+ H (NONE) /hpf Urine Opiates Scre en (Negative) ng/mL Ur Barbiturates Sc reen (Negative) ng/mL Ur Phencyclidine S crn (Negative) ng/mL Ur Amphetamines Sc reen (Negative) ng/mL U Benzodiazepines Scrn (Negative) ng/mL Urine Cocaine Scre en (Negative) ng/mL U Marijuana (THC) Screen (Negative) ng/mL Ethyl Alcohol (0-10) mg/dL COVID Results: SARS-CoV-2 Antigen (Rapid) Positive (Negative) H 03/26/20 10:50 03/26/20 SARS-CoV-2 RNA (RT-PCR) Not detected (NOT DETECTED) 01/06/20 15:34 01/06/20 Discharge Plan Discharge Patient Disposition: Admitted As Inpatient Admit Provider: Abiel Persaud Clinical Impression: Alcohol withdrawal, COVID-19 Condition: Stable Coding Level of Care Code ED Student Records Coordinator for g Fwd Exam Comprehensive
[2020-04-01 11:21] LABS: Basophils % 0.4 %; Eosinophils # 0.1 10^3/uL (0.0-0.8); Eosinophils % 2.9 %; Hemoglobin 14.4 g/dL (11.5-15.3); Lymphocytes # 0.9 10^3/uL (0.8-4.8); Lymphocytes % 38.5 %; Mean Corpuscular HGB Conc 32.7 g/dL (30.0-36.0); Mean Corpuscular Hemoglobin 33.3 pg (28.0-34.0); Mean Corpuscular Volume 101.6 fL (81-99); Mean Platelet Volume 9.6 fL (7.4-10.4); Monocytes # 0.2 10^3/uL (0.2-0.9); Monocytes % 8.6 %; Neutrophils % 49.2 %; Nucleated Red Blood Cells % 0 %; Platelet Count 112 10^3/cmm (130-400); Red Blood Count 4.33 10^6/uL (4.1-5.3); Red Cell Distribution Width 14.6 % (12.1-15.1); White Blood Count 2.4 10^3/uL (4.0-10.0)
[2020-04-01] MEDS: LORazepam 0.5 mg Tablet PO (11:23)
[2020-04-01] MEDS: acetaminophen 500 mg Tablet 1000 MG PO (11:23)
[2020-04-01 11:29] LABS: D Dimer 1.27 ug/mIFEU (0-0.59)
[2020-04-01 11:31] LABS: Urine Appearance Clear (CLEAR); Urine Color Dark Yellow (Yellow); pH Urine 6 (5-7)
[2020-04-01 11:32] LABS: Add Urine Microscopic? YES; Bilirubin Urine Neg (Negative); Blood Urine Neg (Negative); Glucose Urine UA Norm (Normal); Ketones Urine Negative (Negative); Leukocyte Esterase Urine Negative (Negative); Nitrate Urine Negative (Negative); Protein Urine Trace (Negative); Urobilinogen Urine 1 mg/dL (Negative)
[2020-04-01 11:36] LABS: Add Urine Culture? No; Bacteria Urine 1+ /hpf
[2020-04-01 11:36] LABS: HCG, Serum Qual Negative (Negative)
[2020-04-01 11:38] LABS: Amphetamines Screen Urine Negative (Negative); Barbiturates Screen Urine Negative (Negative); Benzodiazepines Screen Urine Negative (Negative); Cocaine Screen Urine Negative (Negative); Opiate Screen Urine Negative (Negative); PCP Screen Urine Negative (Negative); THC Screen Urine Negative (Negative)
[2020-04-01 11:57] LABS: Procalcitonin 0.04 ng/mL (0-0.5)
[2020-04-01 12:08] LABS: Alanine Aminotransferase 96 U/L (0-33); Albumin Level 3.8 g/dL (3.5-5.2); Alkaline Phosphatase 119 IU/L (35-105); Aspartate Amino Transferase 118 U/L (0-32); Blood Urea Nitrogen 5 mg/dL (6-20); C Reactive Protein 0.9 mg/L (0.0-4.9); Calcium 8.6 mg/dL (8.5-10.5); Carbon Dioxide 30 mmol/L (22-29); Chloride 100 mmol/L (98-107); Globulin 3.6 g/dL (1.3-4.6); Glomerular Filtration Rate 98.3 mL/min (90-130); Glucose 120 mg/dL (65-115); Osmolality Calculated 284 mOsm/kg (285-295); Sodium 138 mmol/L (136-145); Total Bilirubin 0.6 mg/dL (0.15-1.2); Total Protein 7.4 g/dL (6.6-8.7)
[2020-04-01 12:09] LABS: Alcohol Level < 10 mg/dL (0-10)
[2020-04-01 12:10] LABS: Lactic Sepsis W/Reflex 1.5 mmol/L (0.5-2.2)
--- NOTE | 2020-04-01 12:14 | PC.PHAR ---
PT STATES SHE TAKES CARE OF HER OWN MEDICATIONS-PT STATES SHE HASNT TAKEN MOST OF HER MEDS FOR 6 DAYS-PT STATES 6 DAYS AGO SHE TOOK THE 75MG OF THE [facility] AND HASNT FILLED THE RX FOR THE 150MG YET
[2020-04-01] MEDS: metoclopramide 5 mg/mL SDV 2 mL IVP (13:49)
[2020-04-01] MEDS: folic acid 1 MG, multivitamin inj 10 ML, thiamine 100 MG in sodium chloride 0.9% 1,000 ML 252.8 MG IV (13:49)
--- NOTE | 2020-04-01 15:45 | PM.HP ---
Providers/Chief Complaint Admitting Physician: Abiel Persaud Primary Care Provider: David Villar, [facility] Chief Complaint: COVID+ History of Present Illness Wendy De La Cruz is a 29 year old female with past medical history of heavy alcohol use, COPD, tobacco abuse who is presenting with complaints of seizures which happened this morning. The patient was diagnosed with COVID-19 about 6 days ago. At that time the patient left AMA with strict quarantine instructions. The patient was unable to obtain alcohol due to Covid quarantine restrictions and was unable to drink since yesterday. In emergency room she was given lorazepam. Currently she feels better. However due to impending new seizures or DT decision was made to admit her for inpatient hospitalization. The patient reports ongoing fever. She reports cough but no shortness of breath. She reports chronic wheezes due to tobacco smoking and COPD. She smokes up to 3 packs/day. She is on Suboxone but denies any recreational drugs. She drinks about half a gallon of vodka every day. Review of Systems General: Reports: 10 or more systems reviewed and unremarkable except in HPI and below Medications/Allergies Home Medications Medication Instructions Recorded Confirmed Last Taken Type nebulizer accessories #1 each 01/04/20 04/01/20 Unknown Rx albuterol sulfate 2.5 mg INHALATION QID PRN 14 Days 01/26/20 04/01/20 Unknown Rx #75 ml epinephrine [EpiPen 2-Gerardo] 0.3 mg IM Q10M PRN 30 Days #2 each 01/26/20 04/01/20 Unknown Rx multivitamin with folic acid 1 tab PO DAILY 30 Days #30 tab 01/26/20 04/01/20 03/27/20 Rx [Thera] Pulmicort Flexhaler 1 inh INHALATION DAILY 02/15/20 04/01/20 Unknown History fluoxetine [Prozac] 20 mg PO DAILY 30 Days #30 cap 02/17/20 04/01/20 03/27/20 Rx folic acid 1 mg PO DAILY 30 Days #30 tab 02/17/20 04/01/20 03/27/20 Rx metformin 1,000 mg PO DAILY 30 Days #60 tab 02/17/20 04/01/20 03/27/20 Rx prazosin 1 mg PO BEDTIME 30 Days #30 cap 02/17/20 04/01/2021 Rx thiamine mononitrate (vit B1) 100 mg PO DAILY 30 Days #30 tab 02/17/20 04/01/20 03/27/20 Rx [Vitamin B-1 (mononitrate)] trazodone 150 mg PO BEDTIME 30 Days #30 tab 02/17/20 04/01/20 03/27/20 Rx venlafaxine 150 mg PO DAILY 30 Days #30 cap 02/17/20 04/01/20 03/27/20 Rx 75 MG albuterol sulfate 90 mcg/actuation 2 puff INHALATION QID PRN 30 Days 03/22/20 04/01/20 Unknown Rx aerosol inhaler #6.7 g cyclobenzaprine 10 mg tablet 10 mg PO BID PRN 30 Days #60 tab 03/22/20 04/01/20 Unknown Rx buprenorphine-naloxone See Rx Instructions .ROUTE .COMPLEX 03/24/20 04/01/20 03/31/20 History Allergies Allergy/AdvReac Type Severity Reaction Status Date / Time codeine Allergy Unknown ALGY-Hives Verified 04/01/20 10:58 hydroxyzine [From Vistaril] Allergy ADR-Itching Verified 04/01/20 10:58 PFSH Acute PFSH: Medical History Alcohol abuse with alcohol-induced mood disorder Essential (primary) hypertension not on any chronic treatment 09/26 Family history of alpha 1 antitrypsin deficiency Fibromyalgia Generalized anxiety disorder H/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, includes meth, heroin, others, on buprenorphine Hepatitis C antibody positive in blood Hx of abscess of skin and subcutaneous tissue right arm Major depressive disorder, recurrent, moderate Nontoxic thyroid nodule Opioid abuse Polycystic ovarian syndrome polycystic ovaries not notated on CT abdomen/pelvis 01/26 Tobacco dependency Unspecified asthma, uncomplicated onset in childhood Surgical History Hx of cholecystectomy Family History Other Rjudw-2-eggrwxvzske deficiency Drug abuse, amphetamine type Hypertension Social History Smoking and tobacco status: current every day smoker cigarettes Packs smoked per day: 1.5 Years cigarettes smoked: 15 Quit status (tobacco): considering quitting Second hand smoke exposure: Yes Smoking risk assessment/counseling performed?: Yes Alcohol intake: current Alcohol intake frequency: 3 or more drinks per day Alcohol type: hard liquor Desire information about alcohol rehabilitation?: Yes Counseling given: No Desire information about substance/drug rehabilitation?: No Counseling given: No Other details last substance use: Has used methamphetamine, heroin, pain medications. Adopted: No Caregiver/support person: No Lives independently: Yes Household members: friend(s) Housing: Manufactured/Mobile home Marital status: Single Number of children: 2 service: No Current occupational status: unemployed History of recent travel: No Current gender identity: Female Female Reproductive History: Date of last menstrual period: 03/18/20 Para: 2 Vitals/I&O/Wt Last Vital Signs Temp 100.6 F H 04/01/20 10:45 Pulse 101 H 04/01/20 15:09 Resp 18 04/01/20 14:18 BP 178/110 04/01/20 14:18 Pulse Ox 97 04/01/20 15:13 Weight last 48 hrs Weight 136.078 kg Physical Exam Narrative: EXAM NARRATIVE: The patient is currently awake alert oriented. No acute distress. Mood and affect are appropriate. Responses are adequate. Skin is warm and dry. Moist mucous membranes. Supple neck. No JVD Lungs clear to auscultation bilaterally. No crackles. No respiratory distress Heart S1, S2, regular Extremities no edema cyanosis or calf tenderness bilaterally. Abdomen is obese, soft, nontender, bowel sounds are present Normal speech. Eyes PERRL, extraocular muscles are intact No focal deficits. Mild tremors are present. Data : 04/01/20 11:10 04/01/20 11:10 Other Labs: Laboratory Results WBC 2.4 10^3/uL (4.0-10.0) L 04/01/20 11:10 RBC 4.33 10^6/uL (4.1-5.3) 04/01/20 11:10 Hgb 14.4 g/dL (11.5-15.3) 04/01/20 11:10 Hct 44.0 % (37.0-47.0) 04/01/20 11:10 MCV 101.6 fL (81-99) H 04/01/20 11:10 MCH 33.3 pg (28.0-34.0) 04/01/20 11:10 MCHC 32.7 g/dL (30.0-36.0) 04/01/20 11:10 RDW 14.6 % (12.1-15.1) 04/01/20 11:10 Plt Count 112 10^3/cmm (130-400) L 04/01/20 11:10 MPV 9.6 fL (7.4-10.4) 04/01/20 11:10 Neut % (Auto) 49.2 % 04/01/20 11:10 Lymph % (Auto) 38.5 % 04/01/20 11:10 [place] % (Auto) 8.6 % 04/01/20 11:10 Eos % (Auto) 2.9 % 04/01/20 11:10 Baso % (Auto) 0.4 % 04/01/20 11:10 Neut # (Auto) 1.20 10^3/uL (1.8-7.7) L 04/01/20 11:10 Lymph # (Auto) 0.9 10^3/uL (0.8-4.8) 04/01/20 11:10 [place] # (Auto) 0.2 10^3/uL (0.2-0.9) 04/01/20 11:10 Eos # (Auto) 0.1 10^3/uL (0.0-0.8) 04/01/20 11:10 Baso # (Auto) 0.0 10^3/uL (0.0-0.1) 04/01/20 11:10 Nucleated RBC % (auto) 0 % 04/01/20 11:10 Nucleated RBCs # 0.0 /100WBC 04/01/20 11:10 D-Dimer 1.27 ug/mIFEU (0-0.59) H 04/01/20 11:10 Sodium 138 mmol/L (136-145) 04/01/20 11:10 Potassium 4.0 mmol/L (3.5-5.1) 04/01/20 11:10 Chloride 100 mmol/L (98-107) 04/01/20 11:10 Carbon Dioxide 30 mmol/L (22-29) H 04/01/20 11:10 Anion Gap 12.0 (5-19) 04/01/20 11:10 BUN 5 mg/dL (6-20) L 04/01/20 11:10 Creatinine 0.7 mg/dL (0.5-0.9) 04/01/20 11:10 GFR Calculation 98.3 mL/min (90-130) 04/01/20 11:10 Glucose 120 mg/dL (65-115) H 04/01/20 11:10 Calculated Osmolality 284 mOsm/kg (285-295) L 04/01/20 11:10 Lactic Acid 1.5 mmol/L (0.5-2.2) 04/01/20 11:20 Calcium 8.6 mg/dL (8.5-10.5) 04/01/20 11:10 Total Bilirubin 0.6 mg/dL (0.15-1.2) 04/01/20 11:10 AST 118 U/L (0-32) H 04/01/20 11:10 ALT 96 U/L (0-33) H 04/01/20 11:10 Alkaline Phosphatase 119 IU/L (35-105) H 04/01/20 11:10 C-Reactive Protein 0.9 mg/L (0.0-4.9) 04/01/20 11:10 Total Protein 7.4 g/dL (6.6-8.7) 04/01/20 11:10 Albumin 3.8 g/dL (3.5-5.2) 04/01/20 11:10 Globulin 3.6 g/dL (1.3-4.6) 04/01/20 11:10 Procalcitonin 0.04 ng/mL (0-0.5) 04/01/20 11:10 HCG, Qual Negative (Negative) 04/01/20 11:10 Urine Color Dark yellow (Yellow) 04/01/20 11:20 Urine Appearance Clear (CLEAR) 04/01/20 11:20 Urine pH 6 (5-7) 04/01/20 11:20 Ur Specific [place] 1.020 (1.005-1.030) 04/01/20 11:20 Urine Protein Trace (Negative) 04/01/20 11:20 Urine Glucose (UA) Norm (Normal) 04/01/20 11:20 Urine Ketones Negative (Negative) 04/01/20 11:20 Urine Blood Neg (Negative) 04/01/20 11:20 Urine Nitrate Negative (Negative) 04/01/20 11:20 Urine Bilirubin Neg (Negative) 04/01/20 11:20 Urine Urobilinogen 1 mg/dL (Negative) H 04/01/20 11:20 Ur Leukocyte Esterase Negative (Negative) 04/01/20 11:20 Urine RBC None /hpf (0-2) 04/01/20 11:20 Urine WBC 5-10 /hpf (0-5) H 04/01/20 11:20 Ur Squamous Epith Cells 10-15 /hpf (0-5) H 04/01/20 11:20 Amorphous Sediment Not Reportable 04/01/20 11:20 Urine Bacteria 1+ /hpf (NONE) H 04/01/20 11:20 Urine Opiates Screen Negative ng/mL (Negative) 04/01/20 11:20 Ur Barbiturates Screen Negative ng/mL (Negative) 04/01/20 11:20 Ur Phencyclidine Scrn Negative ng/mL (Negative) 04/01/20 11:20 Ur Amphetamines Screen Negative ng/mL (Negative) 04/01/20 11:20 U Benzodiazepines Scrn Negative ng/mL (Negative) 04/01/20 11:20 Urine Cocaine Screen Negative ng/mL (Negative) 04/01/20 11:20 U Marijuana (THC) Screen Negative ng/mL (Negative) 04/01/20 11:20 Ethyl Alcohol < 10 mg/dL (0-10) 04/01/20 11:10 Impressions Chest X-Ray 04/01/20 10:53 IMPRESSION: No acute findings. A&P Additional A&P Information 29-year-old female with past medical history of heavy alcohol use, liver disease, obesity, COPD and recently diagnosed COVID-19 infection who is presenting after having a seizure due to not being able to drink due to lack of access to alcohol due to COVID-19 quarantine. Withdrawal seizures, impending DT. Currently more stable after lorazepam was given in emergency room. Being admitted to viral unit. We will start her on CIWA protocol, will receive vitamin replacement and scheduled Librium. Discussed with the nurse. He will let me know if adjustment of the dose is necessary if her symptoms are not controlled. Continuous pulse oximetry and close monitoring for her neurologic status is discussed. COVID-19 viral syndrome. No evidence of hypoxia or pneumonia. We will start her on dexamethasone. COPD. Stable. No evidence of acute exacerbation. Continue home medications. Hypertension. I think that it will normalize with Librium and lorazepam. Diabetes. We will start her on insulin sliding scale. Will consider NPH if her blood sugar levels are uncontrolled due to steroids Chronic pain syndrome. Discussed with the nurse. Calling to her pharmacy to verify the dose of Suboxone. We will resume it. DVT prophylaxis. Teds and SCDs. I am concerned about her liver disease and thrombocytopenia. Previously she had numbers which were below 50. If her platelets remain above 50 tomorrow we will consider Lovenox since she is high risk for DVT due to COVID-19, COPD, tobacco abuse, and morbid obesity. Thrombocytopenia. Probably secondary to alcohol and liver disease. Continue monitoring Abnormal LFTs. Secondary to alcohol and liver disease. Continue monitoring. CODE STATUS. She wants to be full code. The plan of care was discussed with the patient. She verbalized understanding and agreement. Attestations Medical Necessity Statement*: Patient is admitted due to seizure secondary to alcohol withdrawal, impending DT. I expect that the patient will stay in the hospital more than two midnights Coding Level of Care Code Acute Ear Nose And Throat Specialist for Bartolo Lund
[2020-04-01] MEDS: chlordiazePOXIDE 25 mg Capsule PO ×2 (16:49→21:07)
[2020-04-01] MEDS: cefTRIAXone 1,000 MG in sodium chloride 0.9% (plus) 50 ML 100 MG IV (17:02)
--- NOTE | 2020-04-01 18:05 | ECG_ITS ---
[facility] Test Date: 2020-04-01 Pat Name: Wendy De La Cruz Department: Room: 201 Gender: Female Graphics Manager: : 1990 Requested By: Chantale Singh Order Number: [id number] Reading MD: VIANNEY DENSON Measurements Intervals [place] Rate: 86 P: 52 CT: 150 QRS: 5 QRSD: 90 T: 28 QT: 368 QTc: 443 Interpretive Statements SINUS RHYTHM POSSIBLE RIGHT VENTRICULAR CONDUCTION DELAY [RSR (QR) IN V1/V2] Compared to ECG 02/14/2020 22:59:43 No significant changes Electronically Signed On 04-01-2020 18:17:33 LEGAL ADMINISTRATOR by VIANNEY DENSON [id number]
[2020-04-01] MEDS: buprenorphine-naloxone 4-1 mg Film 2 EACH SUBLINGUAL (18:08)
[2020-04-01] MEDS: LORazepam 2 mg/mL INJ 1 mL 1 MG IV ×3 (18:33→21:51)
[2020-04-01] MEDS: trazodone 150 mg Tablet PO (21:07)
[2020-04-02] VITALS (7 sets, daily range): BP systolic 137–175; BP diastolic 74–133; PULSE 64–89; RESP 16–18; TEMP 36.9–37.1; O2SAT 94–97
[2020-04-02] MEDS: chlordiazePOXIDE 25 mg Capsule PO ×2 (04:18→09:00)
[2020-04-02 05:03] LABS: Alanine Aminotransferase 63 U/L (0-33); Albumin Level 3.3 g/dL (3.5-5.2); Alkaline Phosphatase 94 IU/L (35-105); Blood Urea Nitrogen 7 mg/dL (6-20); Calcium 7.9 mg/dL (8.5-10.5); Carbon Dioxide 29 mmol/L (22-29); Chloride 104 mmol/L (98-107); Glomerular Filtration Rate 98.3 mL/min (90-130); Glucose 96 mg/dL (65-115); Magnesium 1.2 mg/dL (1.7-2.3); NT Pro B Type Natriuretic Pept 146 pg/mL (0-125); Osmolality Calculated 290 mOsm/kg (285-295); Sodium 141 mmol/L (136-145)
[2020-04-02 05:07] LABS: Anion Gap 11.7 (5-19); Aspartate Amino Transferase 60 U/L (0-32); Potassium 3.7 mmol/L (3.5-5.1)
[2020-04-02 06:25] LABS: Basophils % 0.4 %; Eosinophils # 0.1 10^3/uL (0.0-0.8); Eosinophils % 4.7 %; Hematocrit 39.7 % (37.0-47.0); Lymphocytes # 1.4 10^3/uL (0.8-4.8); Lymphocytes % 54.1 %; Mean Corpuscular HGB Conc 32.7 g/dL (30.0-36.0); Mean Corpuscular Hemoglobin 33.9 pg (28.0-34.0); Mean Corpuscular Volume 103.4 fL (81-99); Mean Platelet Volume 11.1 fL (7.4-10.4); Monocytes # 0.2 10^3/uL (0.2-0.9); Monocytes % 9.4 %; Nucleated Red Blood Cells % 0 %; Platelet Count 108 10^3/cmm (130-400); Red Blood Count 3.84 10^6/uL (4.1-5.3); Red Cell Distribution Width 14.5 % (12.1-15.1); White Blood Count 2.6 10^3/uL (4.0-10.0)
[2020-04-02 06:28] LABS: Neutrophils # 0.79 10^3/uL (1.8-7.7)
[2020-04-02] MEDS: folic acid 1 mg Tablet PO (08:54)
[2020-04-02] MEDS: dexamethasone 4 mg Tablet 6 MG PO (08:54)
[2020-04-02] MEDS: buprenorphine-naloxone 4-1 mg Film 2 EACH SUBLINGUAL ×2 (08:55→18:18)
[2020-04-02] MEDS: multivitamin therapeutic Tablet 1 TAB PO (08:55)
[2020-04-02] MEDS: thiamine 100 mg Tablet PO (08:55)
[2020-04-02] MEDS: venlafaxine ER (24HR) 150 mg Capsule PO (08:55)
[2020-04-02] MEDS: magnesium sulfate premix 2 GM/50 ML PIGGYBACK IV (11:27)
[2020-04-02] MEDS: acetaminophen 325 mg Tablet 650 MG PO (11:28)
[2020-04-02] MEDS: LORazepam 2 mg/mL INJ 1 mL 1 MG IV (11:29)
[2020-04-02] MEDS: enoxaparin 40 mg/0.4 mL Syringe SUBCUT (11:29)
--- NOTE | 2020-04-02 13:34 | PM.PN ---
Subjective Subjective: Interval history: Patient is slightly better today. However still a little restless. Having mild tremors. No seizures. Denies focal weakness or sensory loss. Denies problems with vision. No fever or chills. No chest pain, shortness of breath, cough, palpitations. Medications: Reviewed: Yes Medication Review Details: Generic Name Dose Route Start Last Admin Trade Name Lgq PRN Reason Stop Dose Admin Acetaminophen 650 mg 04/01/20 14:57 04/02/20 11:28 Acetaminophen 32 5 Mg Tablet PO 650 mg Q6H PRN Administration Mild/Mod Pain Or Temp >/= 101 Buprenorphine/Nalo xone 2 each 04/01/20 18:00 04/02/20 08:55 Buprenorphine-Na loxone 4-1 Mg Film SUBLINGUAL 2 each BID JULIANO Administration Dexamethasone 6 mg 04/02/20 09:00 04/02/20 08:54 Dexamethasone 4 Mg Tablet PO 6 mg DAILY JULIANO Administration Enoxaparin Sodium 40 mg 04/02/20 10:00 04/02/20 11:29 Enoxaparin 40 Mg /0.4 Ml Syringe SUBCUT 40 mg Q24H JULIANO Administration Folic Acid 1 mg 04/02/20 09:00 04/02/20 08:54 Folic Acid 1 Mg Tablet PO 1 mg DAILY JULIANO Administration Ceftriaxone Sodium 1,000 mg/ 50 mls @ 100 mls/ hr 04/01/20 15:30 04/01/20 17:02 Sodium Chloride IV 100 mls/hr Q24H JULIANO Administration Protocol Insulin Aspart 0 unit 04/01/20 18:00 04/02/20 13:22 Insulin Aspart 1 00 Unit/1 Ml SUBCUT Not Given TIDWM JULIANO Protocol Insulin Aspart 0 unit 04/01/20 21:00 04/01/20 20:37 Insulin Aspart 1 00 Unit/1 Ml SUBCUT Not Given BEDTIME JULIANO Protocol Lorazepam 1 mg 04/01/20 14:57 04/02/20 11:29 Lorazepam 2 Mg/M l Inj 1 Ml IV 1 mg PROTOCOL PRN Administration ALCOWD Protocol Multivitamins Ther apeutic 1 tab 04/02/20 09:00 04/02/20 08:55 Multivitamin The rapeutic Tablet PO 1 tab DAILY JULIANO Administration Nicotine 1 patch 04/02/20 09:00 04/02/20 08:56 Nicotine 21 Mg P atch TRANSDERMA Not Given DAILY JULIANO Thiamine Mononitra te 100 mg 04/02/20 09:00 04/02/20 08:55 Thiamine 100 Mg Tablet PO 100 mg DAILY JULIANO Administration Trazodone HCl 150 mg 04/01/20 21:00 04/01/20 21:07 Trazodone 150 Mg Tablet PO 150 mg BEDTIME JULIANO Administration Venlafaxine HCl 150 mg 04/02/20 09:00 04/02/20 08:55 Venlafaxine Er ( 24hr) 150 Mg Capsu le PO 150 mg DAILY JULIANO Administration Vitals/I&O/Wt Last Vital Signs Temp 98.7 F 04/02/20 11:29 Pulse 64 04/02/20 11:29 Resp 16 04/02/20 11:29 BP 137/89 04/02/20 11:29 Pulse Ox 95 04/02/20 11:29 04/01/20 04/02/20 04/02/20 22:59 06:59 14:59 Intake Total 709 / 709 473 / 1182 600 / 600 Output Total 700 / 700 Balance 709 / 709 -227 / 482 600 / 600 Weight last 48 hrs Weight 136.078 kg Physical Exam Narrative: EXAM NARRATIVE: The patient is currently awake alert oriented. No acute distress. Mood and affect are appropriate. Responses are adequate. Skin is warm and dry. Moist mucous membranes. Supple neck. No JVD Lungs clear to auscultation bilaterally. No crackles. No respiratory distress Heart S1, S2, regular Extremities no edema cyanosis or calf tenderness bilaterally. Mild tremors. Abdomen is obese, soft, nontender, bowel sounds are present Normal speech. Eyes PERRL, extraocular muscles are intact No focal deficits. Data : 04/02/20 03:45 04/02/20 03:45 A&P Additional A&P Information 29-year-old female with past medical history of heavy alcohol use, liver disease, obesity, COPD and recently diagnosed COVID-19 infection who is presenting after having a seizure due to not being able to drink due to lack of access to alcohol due to COVID-19 quarantine. Withdrawal seizures, impending DT. Will increase Librium. We will continue CIWA protocol. We will continue vitamins. Will watch for any signs of excessive sedation or hypoxia. Discussed with the nursing staff. COVID-19 viral syndrome. No evidence of hypoxia or pneumonia. Continue dexamethasone. COPD. Stable. No evidence of acute exacerbation. Continue home medications. Hypertension. Uncontrolled. Probably related due to #1. I think it will improve with increased dose of Librium. Diabetes. Insulin sliding scale. Will consider NPH if her blood sugar levels are uncontrolled due to steroids Chronic pain syndrome. We will continue home medications. DVT prophylaxis. Teds and SCDs. Starting Lovenox. Monitor platelets placed. Thrombocytopenia. Probably secondary to alcohol and liver disease. Stable. Continue monitoring. Abnormal LFTs. Secondary to alcohol and liver disease. Proving. Continue monitoring. Hypomagnesemia. Replace and monitor. CODE STATUS. She wants to be full code. The plan of care was discussed with the patient. She verbalized understanding and agreement. Attestations Medical Necessity Statement*: Still requires close monitoring and adjustments of medications. Coding Level of Care Code Acute Bridges And Buildings Supervisor for Bartolo Lund
[2020-04-02] MEDS: cefTRIAXone 1,000 MG in sodium chloride 0.9% (plus) 50 ML 100 MG IV (15:12)
[2020-04-02] MEDS: chlordiazePOXIDE 25 mg Capsule 50 MG PO ×2 (15:12→21:09)
--- NOTE | 2020-04-02 16:02 | PC.NURSE ---
I reported the high bp to the nurse. 175/133
[2020-04-02] MEDS: labetalol 5 mg/mL SDV 20mL 10 MG IVP (16:46)
--- NOTE | 2020-04-02 18:45 | PC.NURSE ---
Received bedside report on patient from Nick Mcfadden RN. Assumed care at this time.
[2020-04-02] MEDS: trazodone 150 mg Tablet PO (21:09)
[2020-04-03] VITALS (10 sets, daily range): BP systolic 144–182; BP diastolic 71–136; PULSE 62–89; RESP 17–22; TEMP 36.5–37.1; O2SAT 95–99
[2020-04-03 05:41] LABS: Basophils % 0.6 %; Eosinophils # 0.1 10^3/uL (0.0-0.8); Eosinophils % 1.6 %; Hematocrit 41.2 % (37.0-47.0); Hemoglobin 13.7 g/dL (11.5-15.3); Lymphocytes # 1.3 10^3/uL (0.8-4.8); Lymphocytes % 40.9 %; Mean Corpuscular HGB Conc 33.3 g/dL (30.0-36.0); Mean Corpuscular Volume 102.2 fL (81-99); Mean Platelet Volume 11.7 fL (7.4-10.4); Monocytes # 0.2 10^3/uL (0.2-0.9); Monocytes % 6.1 %; Neutrophils # 1.59 10^3/uL (1.8-7.7); Neutrophils % 50.8 %; Nucleated Red Blood Cells % 0 %; Platelet Count 102 10^3/cmm (130-400); Red Blood Count 4.03 10^6/uL (4.1-5.3); Red Cell Distribution Width 14.2 % (12.1-15.1); White Blood Count 3.1 10^3/uL (4.0-10.0)
[2020-04-03] MEDS: chlordiazePOXIDE 25 mg Capsule 50 MG PO ×4 (05:57→23:41)
[2020-04-03 06:01] LABS: Slide Review Slide Review Perform
[2020-04-03 06:03] LABS: Albumin Level 3.7 g/dL (3.5-5.2); Blood Urea Nitrogen 8 mg/dL (6-20); Calcium 8.9 mg/dL (8.5-10.5); Carbon Dioxide 28 mmol/L (22-29); Chloride 104 mmol/L (98-107); Glomerular Filtration Rate 116.6 mL/min (90-130); Glucose 111 mg/dL (65-115); Magnesium 1.7 mg/dL (1.7-2.3); Phosphorus 3.6 mg/dL (2.5-4.5); Sodium 142 mmol/L (136-145)
[2020-04-03] MEDS: venlafaxine ER (24HR) 150 mg Capsule PO (09:03)
[2020-04-03] MEDS: thiamine 100 mg Tablet PO (09:03)
[2020-04-03] MEDS: folic acid 1 mg Tablet PO (09:03)
[2020-04-03] MEDS: dexamethasone 4 mg Tablet 6 MG PO (09:03)
[2020-04-03] MEDS: buprenorphine-naloxone 4-1 mg Film 2 EACH SUBLINGUAL ×2 (09:03→17:17)
[2020-04-03] MEDS: multivitamin therapeutic Tablet 1 TAB PO (09:03)
[2020-04-03] MEDS: enoxaparin 40 mg/0.4 mL Syringe SUBCUT (10:01)
[2020-04-03] MEDS: amlodipine 10 mg Tablet PO (10:54)
[2020-04-03] MEDS: magnesium oxide 400 mg tablet PO ×2 (10:54→17:17)
[2020-04-03] MEDS: acetaminophen 325 mg Tablet 650 MG PO (10:54)
[2020-04-03 11:37] LABS: Glucose Point of Care 128 mg/dL (70-110)
[2020-04-03 11:37] LABS: Glucose Point of Care 148 mg/dL (70-110)
[2020-04-03 11:37] LABS: Glucose Point of Care 102 mg/dL (70-110)
[2020-04-03 11:37] LABS: Glucose Point of Care 120 mg/dL (70-110)
[2020-04-03 11:37] LABS: Glucose Point of Care 99 mg/dL (70-110)
[2020-04-03 11:37] LABS: Glucose Point of Care 124 mg/dL (70-110)
[2020-04-03 11:37] LABS: Glucose Point of Care 139 mg/dL (70-110)
[2020-04-03 11:37] LABS: Glucose Point of Care 110 mg/dL (70-110)
[2020-04-03] MEDS: cefTRIAXone 1,000 MG in sodium chloride 0.9% (plus) 50 ML 100 MG IV (14:51)
--- NOTE | 2020-04-03 15:24 | PM.PN ---
Subjective Subjective: Interval history: Patient was examined this morning, she is complaining of bilateral upper semitremors, anxiety, chest palpitations, some shortness of breath, her last alcohol drink was 2 days ago, denies seeing or hearing things are not there, no nausea, no no vomiting, she feels that the Librium wears off too soon Medications: Reviewed: Yes Medication Review Details: Generic Name Dose Route Start Last Admin Trade Name Freq PRN Reason Stop Dose Admin Acetaminophen 650 mg 04/01/20 14:57 04/02/20 11:28 Acetaminophen 32 5 Mg Tablet PO 650 mg Q6H PRN Administration Mild/Mod Pain Or Temp >/= 101 Buprenorphine/Nalo xone 2 each 04/01/20 18:00 04/02/20 08:55 Buprenorphine-Na loxone 4-1 Mg Film SUBLINGUAL 2 each BID JULIANO Administration Dexamethasone 6 mg 04/02/20 09:00 04/02/20 08:54 Dexamethasone 4 Mg Tablet PO 6 mg DAILY JULIANO Administration Enoxaparin Sodium 40 mg 04/02/20 10:00 04/02/20 11:29 Enoxaparin 40 Mg /0.4 Ml Syringe SUBCUT 40 mg Q24H JULIANO Administration Folic Acid 1 mg 04/02/20 09:00 04/02/20 08:54 Folic Acid 1 Mg Tablet PO 1 mg DAILY JULIANO Administration Ceftriaxone Sodium 1,000 mg/ 50 mls @ 100 mls/ hr 04/01/20 15:30 04/01/20 17:02 Sodium Chloride IV 100 mls/hr Q24H JULIANO Administration Protocol Insulin Aspart 0 unit 04/01/20 18:00 04/02/20 13:22 Insulin Aspart 1 00 Unit/1 Ml SUBCUT Not Given TIDWM JULIANO Protocol Insulin Aspart 0 unit 04/01/20 21:00 04/01/20 20:37 Insulin Aspart 1 00 Unit/1 Ml SUBCUT Not Given BEDTIME JULIANO Protocol Lorazepam 1 mg 04/01/20 14:57 04/02/20 11:29 Lorazepam 2 Mg/M l Inj 1 Ml IV 1 mg PROTOCOL PRN Administration ALCOWD Protocol Multivitamins Ther apeutic 1 tab 04/02/20 09:00 04/02/20 08:55 Multivitamin The rapeutic Tablet PO 1 tab DAILY JULIANO Administration Nicotine 1 patch 04/02/20 09:00 04/02/20 08:56 Nicotine 21 Mg P atch TRANSDERMA Not Given DAILY [facility] Thiamine Mononitra te 100 mg 04/02/20 09:00 04/02/20 08:55 Thiamine 100 Mg Tablet PO 100 mg DAILY JULIANO Administration Trazodone HCl 150 mg 04/01/20 21:00 04/01/20 21:07 Trazodone 150 Mg Tablet PO 150 mg BEDTIME JULIANO Administration Venlafaxine HCl 150 mg 04/02/20 09:00 04/02/20 08:55 Venlafaxine Er ( 24hr) 150 Mg Capsu le PO 150 mg DAILY JULIANO Administration Vitals/I&O/Wt Last Vital Signs Temp 97.7 F 04/03/20 15:06 Pulse 64 04/03/20 15:06 Resp 17 04/03/20 15:06 BP 182/107 04/03/20 15:06 Pulse Ox 96 04/03/20 15:06 04/03/20 04/03/20 04/03/20 06:59 14:59 22:59 Intake Total 851 / 2741 720 / 720 Output Total 700 / 1400 Balance 151 / 1341 720 / 720 Physical Exam Const: COMMON NORMALS: no acute distress and patient oriented x3 HENMT: COMMON NORMALS: normocephalic HEAD & SCALP: normocephalic Neck/C-Spine: COMMON NORMALS: no JVD Resp: COMMON NORMALS: normal respiratory effort, No retractions, No use of accessory muscles and clear to auscultation bilaterally AUSCULTATION: clear to auscultation bilaterally Cardio: COMMON NORMALS: no JVD, regular rate, regular rhythm, S1 normal heart sound present and S2 normal heart sound present RATE: regular rate RHYTHM: regular rhythm HEART SOUNDS: S1 normal heart sound present and S2 normal heart sound present GI: COMMON NORMALS: Normal to inspection, nondistended, normoactive bowel sounds present, Soft to palpation, non-tender, No hepatosplenomegaly present, no masses and no bruits PALPATION: Yes Soft to palpation and Yes No hepatosplenomegaly present Extremity: COMMON NORMALS: capillary refill normal, no clubbing, cyanosis or edema, no calf tenderness and no pedal edema NARRATIVE EXTREMITY EXAM: Mild upper extremity bilateral tremors Neuro: COMMON NORMALS: patient oriented x3 Psych: COMMON NORMALS: mental status grossly normal Data : 04/03/20 03:47 04/03/20 03:47 Micro: Microbiology 04/01/20 08:30 Urine Culture - Preliminary Urine,Clean Catch A&P Additional A&P Information 29-year-old female with past medical history of heavy alcohol use, liver disease, obesity, COPD and recently diagnosed COVID-19 infection who is presenting after having a seizure due to not being able to drink due to lack of access to alcohol due to COVID-19 quarantine. Alcohol withdrawal /withdrawal seizures: Increase Librium to 50 every 6. We will continue CIWA protocol. We will continue vitamins. Will watch for any signs of excessive sedation or hypoxia. Discussed with the nursing staff. COVID-19 viral syndrome. No evidence of hypoxia or pneumonia. Continue dexamethasone. COPD. Stable. No evidence of acute exacerbation. Continue home medications. Hypertension. Add Norvasc 10 mg daily. In addition could be related to alcohol withdrawal Diabetes. Insulin sliding scale. Will consider NPH if her blood sugar levels are uncontrolled due to steroids Chronic pain syndrome. We will continue home medications. DVT prophylaxis. Teds and SCDs. Lovenox. \ Thrombocytopenia. Probably secondary to alcohol and liver disease. Stable. Continue monitoring. Abnormal LFTs. Secondary to alcohol and liver disease. Proving. Continue monitoring. Hypomagnesemia. Replace and monitor. CODE STATUS. She wants to be full code. The plan of care was discussed with the patient. She verbalized understanding and agreement. Attestations Medical Necessity Statement*: Patient requires hospitalization for alcohol withdrawal Coding Level of Care Code Acute Cardroom Plastic Card Grader for Bartolo Lund
[2020-04-03] MEDS: LORazepam 2 mg/mL INJ 1 mL 1 MG IV ×2 (16:16→20:20)
--- NOTE | 2020-04-03 16:24 | PC.RESP ---
Smoking Cessation information sent to patient.
[2020-04-03] MEDS: labetalol 5 mg/mL SDV 20mL 10 MG IVP ×3 (17:28→23:40)
[2020-04-03 19:08] LABS: Globulin 3.1 g/dL (1.3-4.6); Total Protein 6.4 g/dL (6.6-8.7)
[2020-04-03] MEDS: trazodone 150 mg Tablet PO (22:04)
[2020-04-03 22:09] LABS: Glucose Point of Care 122 mg/dL (70-110)
[2020-04-03 22:09] LABS: Glucose Point of Care 124 mg/dL (70-110)
[2020-04-04] VITALS (7 sets, daily range): BP systolic 121–160; BP diastolic 86–103; PULSE 60–74; RESP 16–18; TEMP 36.4–36.7; O2SAT 90–97
[2020-04-04] MEDS: LORazepam 2 mg/mL INJ 1 mL 1 MG IV ×2 (08:42→20:28)
[2020-04-04] MEDS: multivitamin therapeutic Tablet 1 TAB PO (08:43)
[2020-04-04] MEDS: chlordiazePOXIDE 25 mg Capsule 50 MG PO ×3 (08:43→21:21)
[2020-04-04] MEDS: venlafaxine ER (24HR) 150 mg Capsule PO (08:43)
[2020-04-04] MEDS: dexamethasone 4 mg Tablet 6 MG PO (08:43)
[2020-04-04] MEDS: amlodipine 10 mg Tablet PO (08:43)
[2020-04-04] MEDS: magnesium oxide 400 mg tablet PO ×2 (08:43→17:34)
[2020-04-04] MEDS: cyanocobalamin 1,000 mcg Tablet 1000 MCG PO (08:43)
[2020-04-04] MEDS: buprenorphine-naloxone 4-1 mg Film 2 EACH SUBLINGUAL ×2 (08:44→17:33)
[2020-04-04] MEDS: thiamine 100 mg Tablet PO (08:44)
[2020-04-04] MEDS: folic acid 1 mg Tablet PO (08:44)
[2020-04-04] MEDS: enoxaparin 40 mg/0.4 mL Syringe SUBCUT (10:05)
[2020-04-04] MEDS: polyethylene glycol 3350 Pkt 17 gm PO (10:29)
[2020-04-04 11:37] LABS: Glucose Point of Care 82 mg/dL (70-110)
--- NOTE | 2020-04-04 11:46 | P.PN_ITS ---
Subjective Subjective: Interval history: Patient tells me that she had a difficult night, she had withdrawal episodes, anxiety, tremors, palpitations, diaphoresis, is feeling a bit better this morning, patient had ciwa in the high 20s last night Medications: Reviewed: Yes Medication Review Details: Generic Name Dose Route Start Last Admin Trade Name Ambar PRN Reason Stop Dose Admin Acetaminophen 650 mg 04/01/20 14:57 04/02/20 11:28 Acetaminophen 32 5 Mg Tablet PO 650 mg Q6H PRN Administration Mild/Mod Pain Or Temp >/= 101 Buprenorphine/Nalo xone 2 each 04/01/20 18:00 04/02/20 08:55 Buprenorphine-Na loxone 4-1 Mg Film SUBLINGUAL 2 each BID JULIANO Administration Dexamethasone 6 mg 04/02/20 09:00 04/02/20 08:54 Dexamethasone 4 Mg Tablet PO 6 mg DAILY JULIANO Administration Enoxaparin Sodium 40 mg 04/02/20 10:00 04/02/20 11:29 Enoxaparin 40 Mg /0.4 Ml Syringe SUBCUT 40 mg Q24H JULIANO Administration Folic Acid 1 mg 04/02/20 09:00 04/02/20 08:54 Folic Acid 1 Mg Tablet PO 1 mg DAILY JULIANO Administration Ceftriaxone Sodium 1,000 mg/ 50 mls @ 100 mls/ hr 04/01/20 15:30 04/01/20 17:02 Sodium Chloride IV 100 mls/hr Q24H JULIANO Administration Protocol Insulin Aspart 0 unit 04/01/20 18:00 04/02/20 13:22 Insulin Aspart 1 00 Unit/1 Ml SUBCUT Not Given TIDWM [facility] Protocol Insulin Aspart 0 unit 04/01/20 21:00 04/01/20 20:37 Insulin Aspart 1 00 Unit/1 Ml SUBCUT Not Given BEDTIME JULIANO Protocol Lorazepam 1 mg 04/01/20 14:57 04/02/20 11:29 Lorazepam 2 Mg/M l Inj 1 Ml IV 1 mg PROTOCOL PRN Administration ALCOWD Protocol Multivitamins Ther apeutic 1 tab 04/02/20 09:00 04/02/20 08:55 Multivitamin The rapeutic Tablet PO 1 tab DAILY JULIANO Administration Nicotine 1 patch 04/02/20 09:00 04/02/20 08:56 Nicotine 21 Mg P atch TRANSDERMA Not Given DAILY [facility] Thiamine Mononitra te 100 mg 04/02/20 09:00 04/02/20 08:55 Thiamine 100 Mg Tablet PO 100 mg DAILY JULIANO Administration Trazodone HCl 150 mg 04/01/20 21:00 04/01/20 21:07 Trazodone 150 Mg Tablet PO 150 mg BEDTIME JULIANO Administration Venlafaxine HCl 150 mg 04/02/20 09:00 04/02/20 08:55 Venlafaxine Er ( 24hr) 150 Mg Capsu le PO 150 mg DAILY JULIANO Administration Vitals/I&O/Wt Last Vital Signs Temp 97.6 F 04/04/20 08:00 Pulse 74 04/04/20 09:55 Resp 16 04/04/20 09:55 BP 136/90 04/04/20 08:00 Pulse Ox 97 04/04/20 09:55 04/03/20 04/04/20 04/04/20 22:59 06:59 14:59 Intake Total 890 / 1610 240 / 1850 Balance 890 / 1610 240 / 1850 Physical Exam Const: COMMON NORMALS: no acute distress and patient oriented x3 HENMT: COMMON NORMALS: normocephalic HEAD & SCALP: normocephalic Neck/C-Spine: COMMON NORMALS: no JVD Resp: COMMON NORMALS: normal respiratory effort, No retractions, No use of accessory muscles and clear to auscultation bilaterally AUSCULTATION: clear to auscultation bilaterally Cardio: COMMON NORMALS: no JVD, regular rate, regular rhythm, S1 normal heart sound present and S2 normal heart sound present RATE: regular rate RHYTHM: regular rhythm HEART SOUNDS: S1 normal heart sound present and S2 normal heart sound present GI: COMMON NORMALS: Normal to inspection, nondistended, normoactive bowel sounds present, Soft to palpation, non-tender, No hepatosplenomegaly present, no masses and no bruits PALPATION: Yes Soft to palpation and Yes No hepatosplenomegaly present Extremity: COMMON NORMALS: capillary refill normal, no clubbing, cyanosis or edema, no calf tenderness and no pedal edema NARRATIVE EXTREMITY EXAM: Mild upper extremity bilateral tremors Neuro: COMMON NORMALS: patient oriented x3 Psych: COMMON NORMALS: mental status grossly normal Data : 04/03/20 03:47 04/03/20 03:47 Micro: Microbiology 01/23/21 08:30 Urine Culture - Preliminary Urine,Clean Catch A&P Additional A&P Information 29-year-old female with past medical history of heavy alcohol use, liver disease, obesity, COPD and recently diagnosed COVID-19 infection who is presenting after having a seizure due to not being able to drink due to lack of access to alcohol due to COVID-19 quarantine. Alcohol withdrawal /withdrawal seizures: Increase Librium to 50 every 6hrs. We will continue CIWA protocol. We will continue vitamins. Will watch for any signs of excessive sedation or hypoxia. Discussed with the nursing staff. COVID-19 viral syndrome. No evidence of hypoxia or pneumonia. Continue dexamethasone. COPD. Stable. No evidence of acute exacerbation. Continue home medications. Hypertension. Add Norvasc 10 mg daily. In addition could be related to alcohol withdrawal Diabetes. Insulin sliding scale. Will consider NPH if her blood sugar levels are uncontrolled due to steroids Chronic pain syndrome. We will continue home medications. DVT prophylaxis. Teds and SCDs. Lovenox. \ Thrombocytopenia. Probably secondary to alcohol and liver disease. Stable. Continue monitoring. Abnormal LFTs. Secondary to alcohol and liver disease. Proving. Continue monitoring. Hypomagnesemia. Replace and monitor. CODE STATUS. She wants to be full code. The plan of care was discussed with the patient. She verbalized understanding and agreement. Attestations Medical Necessity Statement*: Patient requires hospitalization for alcohol withdrawal Coding Level of Care Code Acute Logging Superintendent for Bartolo Lund
[2020-04-04 11:48] LABS: Glucose Point of Care 97 mg/dL (70-110)
[2020-04-04 17:59] LABS: Glucose Point of Care 121 mg/dL (70-110)
[2020-04-04] MEDS: trazodone 150 mg Tablet PO (20:30)
[2020-04-04] MEDS: cefTRIAXone 1,000 MG in sodium chloride 0.9% (plus) 50 ML 100 MG IV (20:33)
[2020-04-04 22:36] LABS: Basophils % 0.2 %; Eosinophils % 0.7 %; Hematocrit 44.4 % (37.0-47.0); Hemoglobin 14.1 g/dL (11.5-15.3); Lymphocytes # 0.8 10^3/uL (0.8-4.8); Mean Corpuscular HGB Conc 31.8 g/dL (30.0-36.0); Mean Corpuscular Hemoglobin 33.7 pg (28.0-34.0); Mean Corpuscular Volume 106.2 fL (81-99); Mean Platelet Volume 11.2 fL (7.4-10.4); Monocytes # 0.2 10^3/uL (0.2-0.9); Monocytes % 4.6 %; Neutrophils # 3.24 10^3/uL (1.8-7.7); Neutrophils % 75.3 %; Nucleated Red Blood Cells % 0 %; Platelet Count 171 10^3/cmm (130-400); Red Blood Count 4.18 10^6/uL (4.1-5.3); Red Cell Distribution Width 14.6 % (12.1-15.1); White Blood Count 4.3 10^3/uL (4.0-10.0)
[2020-04-04 23:12] LABS: Alanine Aminotransferase 74 U/L (0-33); Albumin Level 3.9 g/dL (3.5-5.2); Alkaline Phosphatase 110 IU/L (35-105); Aspartate Amino Transferase 84 U/L (0-32); Blood Urea Nitrogen 9 mg/dL (6-20); Calcium 9.3 mg/dL (8.5-10.5); Carbon Dioxide 28 mmol/L (22-29); Chloride 103 mmol/L (98-107); Globulin 3.5 g/dL (1.3-4.6); Glomerular Filtration Rate 97.6 mL/min (90-130); Glucose 119 mg/dL (65-115); Magnesium 1.9 mg/dL (1.7-2.3); Osmolality Calculated 296 mOsm/kg (285-295); Phosphorus 3.8 mg/dL (2.5-4.5); Sodium 143 mmol/L (136-145); Total Bilirubin 0.7 mg/dL (0.15-1.2); Total Protein 7.4 g/dL (6.6-8.7)
[2020-04-04 23:24] LABS: Anion Gap 16.5 (5-19); Potassium 4.5 mmol/L (3.5-5.1)
[2020-04-05] VITALS (7 sets, daily range): BP systolic 119–170; BP diastolic 80–107; PULSE 58–68; RESP 16–18; TEMP 36.6–36.9; O2SAT 92–99
[2020-04-05] MEDS: LORazepam 2 mg/mL INJ 1 mL 1 MG IV ×4 (00:30→13:30)
[2020-04-05] MEDS: labetalol 5 mg/mL SDV 20mL 10 MG IVP (00:30)
[2020-04-05] MEDS: chlordiazePOXIDE 25 mg Capsule 50 MG PO ×3 (04:36→17:26)
[2020-04-05 04:47] LABS: Basophils % 0.2 %; Eosinophils # 0.1 10^3/uL (0.0-0.8); Eosinophils % 1.3 %; Hematocrit 42.5 % (37.0-47.0); Hemoglobin 13.8 g/dL (11.5-15.3); Lymphocytes # 1.5 10^3/uL (0.8-4.8); Lymphocytes % 31.8 %; Mean Corpuscular HGB Conc 32.5 g/dL (30.0-36.0); Mean Corpuscular Hemoglobin 33.7 pg (28.0-34.0); Mean Corpuscular Volume 103.9 fL (81-99); Mean Platelet Volume 10.9 fL (7.4-10.4); Monocytes # 0.3 10^3/uL (0.2-0.9); Monocytes % 5.6 %; Neutrophils # 2.83 10^3/uL (1.8-7.7); Neutrophils % 60.7 %; Nucleated Red Blood Cells % 0 %; Platelet Count 167 10^3/cmm (130-400); Red Blood Count 4.09 10^6/uL (4.1-5.3); Red Cell Distribution Width 14.5 % (12.1-15.1); White Blood Count 4.7 10^3/uL (4.0-10.0)
[2020-04-05 05:26] LABS: Alanine Aminotransferase 65 U/L (0-33); Albumin Level 3.7 g/dL (3.5-5.2); Alkaline Phosphatase 84 IU/L (35-105); Aspartate Amino Transferase 66 U/L (0-32); Blood Urea Nitrogen 11 mg/dL (6-20); Calcium 9.4 mg/dL (8.5-10.5); Carbon Dioxide 32 mmol/L (22-29); Chloride 102 mmol/L (98-107); Globulin 3.3 g/dL (1.3-4.6); Glomerular Filtration Rate 97.6 mL/min (90-130); Glucose 99 mg/dL (65-115); Osmolality Calculated 295 mOsm/kg (285-295); Sodium 143 mmol/L (136-145); Total Bilirubin 0.4 mg/dL (0.15-1.2)
[2020-04-05 07:56] LABS: Glucose Point of Care 89 mg/dL (70-110)
[2020-04-05] MEDS: thiamine 100 mg Tablet PO (08:12)
[2020-04-05] MEDS: amlodipine 10 mg Tablet PO (08:12)
[2020-04-05] MEDS: magnesium oxide 400 mg tablet PO ×2 (08:12→17:26)
[2020-04-05] MEDS: cyanocobalamin 1,000 mcg Tablet 1000 MCG PO (08:12)
[2020-04-05] MEDS: folic acid 1 mg Tablet PO (08:12)
[2020-04-05] MEDS: multivitamin therapeutic Tablet 1 TAB PO (08:12)
[2020-04-05] MEDS: dexamethasone 4 mg Tablet 6 MG PO (08:12)
[2020-04-05] MEDS: venlafaxine ER (24HR) 150 mg Capsule PO (08:12)
[2020-04-05] MEDS: buprenorphine-naloxone 4-1 mg Film 2 EACH SUBLINGUAL ×2 (08:13→17:31)
[2020-04-05] MEDS: polyethylene glycol 3350 Pkt 17 gm PO (08:13)
[2020-04-05] MEDS: enoxaparin 40 mg/0.4 mL Syringe SUBCUT (11:03)
[2020-04-05 11:28] LABS: Glucose Point of Care 102 mg/dL (70-110)
--- NOTE | 2020-04-05 11:37 | PM.PN ---
Subjective Subjective: Interval history: Patient had hypertensive episodes overnight, anxious episodes overnight, feels fairly nauseous, continues to have tremors, her CIWA score this morning was 11, requiring Ativan, denies seeing or hearing things are not there, does have palpitations, Medications: Reviewed: Yes Medication Review Details: Generic Name Dose Route Start Last Admin Trade Name Ambar PRN Reason Stop Dose Admin Acetaminophen 650 mg 04/01/20 14:57 04/02/20 11:28 Acetaminophen 32 5 Mg Tablet PO 650 mg Q6H PRN Administration Mild/Mod Pain Or Temp >/= 101 Buprenorphine/Nalo xone 2 each 04/01/20 18:00 04/02/20 08:55 Buprenorphine-Na loxone 4-1 Mg Film SUBLINGUAL 2 each BID JULIANO Administration Dexamethasone 6 mg 04/02/20 09:00 04/02/20 08:54 Dexamethasone 4 Mg Tablet PO 6 mg DAILY JULIANO Administration Enoxaparin Sodium 40 mg 04/02/20 10:00 04/02/20 11:29 Enoxaparin 40 Mg /0.4 Ml Syringe SUBCUT 40 mg Q24H JULIANO Administration Folic Acid 1 mg 04/02/20 09:00 04/02/20 08:54 Folic Acid 1 Mg Tablet PO 1 mg DAILY JULIANO Administration Ceftriaxone Sodium 1,000 mg/ 50 mls @ 100 mls/ hr 04/01/20 15:30 04/01/20 17:02 Sodium Chloride IV 100 mls/hr Q24H JULIANO Administration Protocol Insulin Aspart 0 unit 04/01/20 18:00 04/02/20 13:22 Insulin Aspart 1 00 Unit/1 Ml SUBCUT Not Given TIDWM [facility] Protocol Insulin Aspart 0 unit 04/01/20 21:00 04/01/20 20:37 Insulin Aspart 1 00 Unit/1 Ml SUBCUT Not Given BEDTIME JULIANO Protocol Lorazepam 1 mg 04/01/20 14:57 04/02/20 11:29 Lorazepam 2 Mg/M l Inj 1 Ml IV 1 mg PROTOCOL PRN Administration ALCOWD Protocol Multivitamins Ther apeutic 1 tab 04/02/20 09:00 04/02/20 08:55 Multivitamin The rapeutic Tablet PO 1 tab DAILY JULIANO Administration Nicotine 1 patch 04/02/20 09:00 04/02/20 08:56 Nicotine 21 Mg P atch TRANSDERMA Not Given DAILY [facility] Thiamine Mononitra te 100 mg 04/02/20 09:00 04/02/20 08:55 Thiamine 100 Mg Tablet PO 100 mg DAILY JULIANO Administration Trazodone HCl 150 mg 04/01/20 21:00 04/01/20 21:07 Trazodone 150 Mg Tablet PO 150 mg BEDTIME JULIANO Administration Venlafaxine HCl 150 mg 04/02/20 09:00 04/02/20 08:55 Venlafaxine Er ( 24hr) 150 Mg Capsu le PO 150 mg DAILY JULIANO Administration Vitals/I&O/Wt Last Vital Signs Temp 98.4 F 04/05/20 04:00 Pulse 66 04/05/20 08:17 Resp 16 04/05/20 08:17 BP 145/103 04/05/20 04:00 Pulse Ox 99 04/05/20 08:17 04/04/20 04/05/20 04/05/20 22:59 06:59 14:59 Intake Total 480 / 840 240 / 240 Balance 480 / 840 240 / 240 Physical Exam Const: COMMON NORMALS: no acute distress and patient oriented x3 HENMT: COMMON NORMALS: normocephalic HEAD & SCALP: normocephalic Neck/C-Spine: COMMON NORMALS: no JVD Resp: COMMON NORMALS: normal respiratory effort, No retractions, No use of accessory muscles and clear to auscultation bilaterally AUSCULTATION: clear to auscultation bilaterally Cardio: COMMON NORMALS: no JVD, regular rate, regular rhythm, S1 normal heart sound present and S2 normal heart sound present RATE: regular rate RHYTHM: regular rhythm HEART SOUNDS: S1 normal heart sound present and S2 normal heart sound present GI: COMMON NORMALS: Normal to inspection, nondistended, normoactive bowel sounds present, Soft to palpation, non-tender, No hepatosplenomegaly present, no masses and no bruits PALPATION: Yes Soft to palpation and Yes No hepatosplenomegaly present Extremity: COMMON NORMALS: capillary refill normal, no clubbing, cyanosis or edema, no calf tenderness and no pedal edema NARRATIVE EXTREMITY EXAM: Mild upper extremity bilateral tremors Neuro: COMMON NORMALS: patient oriented x3 Psych: COMMON NORMALS: mental status grossly normal Data : 04/05/20 03:25 04/05/20 03:25 Micro: Microbiology 04/01/20 08:30 Urine Culture - Final Urine,Clean Catch A&P Additional A&P Information 29-year-old female with past medical history of heavy alcohol use, liver disease, obesity, COPD and recently diagnosed COVID-19 infection who is presenting after having a seizure due to not being able to drink due to lack of access to alcohol due to COVID-19 quarantine. Alcohol withdrawal /withdrawal seizures: Librium to 50 every 6hrs. We will continue CIWA protocol. We will continue vitamins. Will watch for any signs of excessive sedation or hypoxia. Discussed with the nursing staff. COVID-19 viral syndrome. No evidence of hypoxia or pneumonia. Continue dexamethasone. COPD. Stable. No evidence of acute exacerbation. Continue home medications. Hypertension. Add Norvasc 10 mg daily. In addition could be related to alcohol withdrawal Diabetes. Insulin sliding scale. Will consider NPH if her blood sugar levels are uncontrolled due to steroids Chronic pain syndrome. We will continue home medications. DVT prophylaxis. Teds and SCDs. Lovenox. Thrombocytopenia. Probably secondary to alcohol and liver disease. Stable. Continue monitoring. Abnormal LFTs. Secondary to alcohol and liver disease. Proving. Continue monitoring. Hypomagnesemia. Replace and monitor. CODE STATUS. She wants to be full code. Plan for today continue CIWA score, continue Librium, Ativan as needed, monitor for the next 24 hours, likely discharge on 2 4 hours The plan of care was discussed with the patient. She verbalized understanding and agreement. Attestations Medical Necessity Statement*: Patient requires hospitalization for alcohol withdrawal Coding Level of Care Code Acute Outside Medical Sales Representative for Bartolo Lund
[2020-04-05] MEDS: cefTRIAXone 1,000 MG in sodium chloride 0.9% (plus) 50 ML 100 MG IV (14:41)
[2020-04-05 17:08] LABS: Glucose Point of Care 128 mg/dL (70-110)
[2020-04-05] MEDS: LORazepam 2 mg/mL INJ 1 mL 1 MG IVP (18:43)
[2020-04-05] MEDS: trazodone 150 mg Tablet PO (20:57)
[2020-04-05 21:42] LABS: Glucose Point of Care 111 mg/dL (70-110)
[2020-04-06] VITALS: BP 178/112; PULSE 67; RESP 18; TEMP 36.7; O2SAT 96
[2020-04-06] MEDS: chlordiazePOXIDE 25 mg Capsule 50 MG PO ×2 (00:26→09:04)
[2020-04-06] MEDS: labetalol 5 mg/mL SDV 20mL 10 MG IVP (01:16)
[2020-04-06] MEDS: LORazepam 2 mg/mL INJ 1 mL 1 MG IVP ×2 (01:16→09:49)
[2020-04-06 04:00] VITALS: BP 135/96; PULSE 81; RESP 16; TEMP 36.8; O2SAT 95
[2020-04-06 08:26] LABS: Glucose Point of Care 86 mg/dL (70-110)
[2020-04-06] MEDS: amlodipine 10 mg Tablet PO (08:52)
[2020-04-06] MEDS: dexamethasone 4 mg Tablet 6 MG PO (08:52)
[2020-04-06] MEDS: magnesium oxide 400 mg tablet PO (08:52)
[2020-04-06] MEDS: thiamine 100 mg Tablet PO (08:52)
[2020-04-06] MEDS: venlafaxine ER (24HR) 150 mg Capsule PO (08:52)
[2020-04-06] MEDS: multivitamin therapeutic Tablet 1 TAB PO (08:52)
[2020-04-06] MEDS: cyanocobalamin 1,000 mcg Tablet 1000 MCG PO (08:52)
[2020-04-06] MEDS: folic acid 1 mg Tablet PO (08:52)
[2020-04-06] MEDS: polyethylene glycol 3350 Pkt 17 gm PO (08:52)
[2020-04-06] MEDS: enoxaparin 40 mg/0.4 mL Syringe SUBCUT (08:53)
[2020-04-06 09:20] VITALS: PULSE 61; RESP 16; O2SAT 96
--- NOTE | 2020-04-06 11:31 | PM.DCS ---
Discharge Providers Date of Admission: 04/01/20 13:43 Date of Discharge: April 06, 2020 Attending Provider at Admission: Abiel Persaud Attending Provider at Discharge: Navid Peres MD Primary Care Provider: VIR[place]IA Choudhary Reason for Visit Reason for Visit: COVID+ Hospital Course Hospital Course This is a 29-year-old female with a past medical history of alcohol abuse, alcoholic liver disease, COPD, tobacco abuse, chronic pain syndrome on Suboxone, chronic thrombocytopenia secondary to alcohol abuse, chronic transaminitis secondary alcohol abuse, recent diagnosis COVID-19, who presents to [facility] due to alcohol withdrawal. Patient was admitted to [facility] due to alcohol withdrawal, alcohol withdrawal seizures, she was managed in the Covid unit, received Librium, Ativan, vitamin replacement, clinically monitored. Patient had a slow clinical improvement, she spent 6 days as inpatient. She did not have any withdrawal seizures as inpatient, no delirium tremens, her CIWA scores gradually declined, minimal Ativan required near discharge, tremors improved, blood pressures improved, anxiety improved. Denies any suicidal or homicidal ideation, denies visual or auditory hallucinations.. Patient will be discharged on vitamin replacement, with a short Librium taper. Patient was advised to not take Librium with her Suboxone, hold Suboxone for the next 3 days, resume as soon as Librium has finished. Patient was advised to abstain from alcohol consumption. She was set up within an alcohol detox program. Physical Exam Const: COMMON NORMALS: no acute distress and patient oriented x3 HENMT: COMMON NORMALS: normocephalic HEAD & SCALP: normocephalic Neck/C-Spine: COMMON NORMALS: no JVD Resp: COMMON NORMALS: normal respiratory effort, No retractions, No use of accessory muscles and clear to auscultation bilaterally AUSCULTATION: clear to auscultation bilaterally Cardio: COMMON NORMALS: no JVD, regular rate, regular rhythm, S1 normal heart sound present and S2 normal heart sound present RATE: regular rate RHYTHM: regular rhythm HEART SOUNDS: S1 normal heart sound present and S2 normal heart sound present GI: COMMON NORMALS: Normal to inspection, nondistended, normoactive bowel sounds present, Soft to palpation, non-tender, No hepatosplenomegaly present, no masses and no bruits PALPATION: Yes Soft to palpation and Yes No hepatosplenomegaly present Extremity: COMMON NORMALS: capillary refill normal, no clubbing, cyanosis or edema, no calf tenderness and no pedal edema Neuro: COMMON NORMALS: patient oriented x3 Psych: COMMON NORMALS: mental status grossly normal Discharge Data Data Completed and Pending: Completed Studies During Hospitalization Category Date Time Status XR chest 1V april ble [id number] Urgent Exams 04/01/20 10:53 Completed Pending at discharge Category Date Time Status Complete Blood Co unt w/Auto AM LABS Lab 04/06/20 04:00 Ordered Comprehensive Met abolic Panel AM LA BS Lab 04/06/20 04:00 Ordered Magnesium AM LABS Lab 04/06/20 04:00 Ordered Phosphorus AM LAB S Lab 04/06/20 04:00 Ordered Labs from last 24 hours 04/06/20 04/05/20 04/05/20 08:13 20:48 16:40 POC Glucose 86 111 H 128 H Vitals: Last Vital Signs Temp 98.2 F 04/06/20 04:00 Pulse 61 04/06/20 09:20 Resp 16 04/06/20 09:20 BP 135/96 04/06/20 04:00 Pulse Ox 96 04/06/20 09:20 Discharge Plan Discharge Patient Disposition: Home Condition: Stable Prescriptions: New chlordiazepoxide HCl 5 mg capsule See Rx Instructions .ROUTE .COMPLEX Qty: 6 RF: 0 folic acid 1 mg Tablet 1 mg PO DAILY 30 Days Qty: 30 RF: 0 multivitamin with folic acid [Thera] 400 mcg Tablet 1 tab PO DAILY 30 Days Qty: 30 RF: 0 thiamine mononitrate (vit B1) [Vitamin B-1 (mononitrate)] 100 mg Tablet 100 mg PO DAILY 30 Days Qty: 30 RF: 0 cyanocobalamin (vitamin B-12) [Vitamin B-12] 1,000 mcg Tablet 1,000 mcg PO DAILY 30 Days Qty: 30 RF: 0 nicotine 21 mg/24 hr Patch 24 Hour 1 patch transdermal DAILY 28 Days Qty: 28 RF: 0 amlodipine 10 mg Tablet 10 mg PO DAILY 30 Days Qty: 30 RF: 0 Continued albuterol sulfate [ProAir HFA] 90 mcg/actuation HFA aerosol inhaler 2 puff inhalation QID PRN (Reason: shortness of breath or wheezing) 30 Days Qty: 6.7 RF: 2 cyclobenzaprine 10 mg tablet 10 mg PO BID PRN (Reason: muscle spasm) 30 Days Qty: 60 RF: 0 (DME) nebulizer accessories Kit See Rx Instructions .ROUTE .MEDSUPPLY Qty: 1 RF: 0 multivitamin with folic acid [Thera] 400 mcg Tablet 1 tab PO DAILY 30 Days Qty: 30 RF: 1 albuterol sulfate 2.5 mg /3 mL (0.083 %) solution for nebulization 2.5 mg INHALATION QID PRN (Reason: shortness of breath or wheezing) 14 Days Qty: 75 RF: 2 epinephrine [EpiPen 2-Gerardo] 0.3 mg/0.3 mL auto-injector 0.3 mg IM Q10M PRN (Reason: anaphylaxis) 30 Days Qty: 2 RF: 1 Pulmicort Flexhaler 180 mcg/actuation Aerosol Powdr Breath Activated 1 inh INHALATION DAILY RF: 0 venlafaxine 150 mg Capsule,Extended Release 24hr 150 mg PO DAILY 30 Days Qty: 30 RF: 1 prazosin 1 mg capsule 1 mg PO BEDTIME 30 Days Qty: 30 RF: 1 trazodone 150 mg Tablet 150 mg PO BEDTIME 30 Days Qty: 30 RF: 1 folic acid 1 mg Tablet 1 mg PO DAILY 30 Days Qty: 30 RF: 1 fluoxetine [Prozac] 20 mg Capsule 20 mg PO DAILY 30 Days Qty: 30 RF: 1 metformin 500 mg tablet extended release 24hr 1,000 mg PO DAILY 30 Days Qty: 60 RF: 1 thiamine mononitrate (vit B1) [Vitamin B-1 (mononitrate)] 100 mg Tablet 100 mg PO DAILY 30 Days Qty: 30 RF: 1 Held buprenorphine-naloxone 8-2 mg tablet, sublingual See Rx Instructions .ROUTE .COMPLEX RF: 0 Hold Instructions: Resume on 04/09/20. hold until librium taper has finished, due to concerns of interaction Discharge Orders: Discharge Order (Routine); Ordered 04/06/20 Ordered By: Navid Peres Referrals: David Villar, [facility] [employer] [Primary Care Provider] - Discharge Diet: Diabetic Discharge Activity: Resume usual activity Patient Instructions: Alcohol Intoxication (DC), Abuse of Alcohol (DC), Acute Delirium (DC) Activity Restrictions/Additional Instructions: -Please abstain from alcohol consumption -Use Librium taper for the next 3 days -Once Librium taper is finished continue Suboxone -Do not use Librium with Suboxone due to risks of life-threatening complications, significant morbidity and mortality, risk of -Please follow-up with alcohol rehab -Continue to self isolate, socially distance, hand wash, face mask -Follow-up with primary care provider 1 week Discharge Attestations Time Spent in Discharge Care*: greater than 30 min Status at Discharge: Cognitive status at discharge: cognitively intact, Behavioral status at discharge: cooperative, Quality Metrics Clinical Quality Measures During this hospital stay, did patient experience: None Coding Level of Care Code Acute 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
[2020-04-06 11:56] LABS: Glucose Point of Care 189 mg/dL (70-110)
[2020-04-06 13:50] VITALS: PULSE 61; RESP 16; O2SAT 96
[2020-04-06 17:16] LABS: Glucose Point of Care 117 mg/dL (70-110)
== END 2020-04-06 13:52 | disposition home or self-care (01) | DRG 896 ==
LOC: ER 13:13 → MS 2A 14:08
PROVIDERS: Admitting Provider Internal Medicine; Emergency Provider Physician Assistant; PCP Nurse Practitioner; Visit Provider Family Medicine
DX: F10.239 Alcohol dependence with withdrawal, unspecified (principal); U07.1 COVID-19; F33.9 Major depressive disorder, recurrent, unspecified; Z68.43 Body mass index [BMI] 50.0-59.9, adult; F10.24 Alcohol dependence with alcohol-induced mood disorder; J44.9 Chronic obstructive pulmonary disease, unspecified; F17.210 Nicotine dependence, cigarettes, uncomplicated; I10 Essential (primary) hypertension; Z83.2 Family history of diseases of the blood and blood-forming organs and certain disorders involving the immune mechanism; M79.7 Fibromyalgia; F41.1 Generalized anxiety disorder; B19.20 Unspecified viral hepatitis C without hepatic coma; E04.1 Nontoxic single thyroid nodule; F11.10 Opioid abuse, uncomplicated; E66.9 Obesity, unspecified; G89.4 Chronic pain syndrome; D69.6 Thrombocytopenia, unspecified; E83.42 Hypomagnesemia; Z79.51 Long term (current) use of inhaled steroids
CPT/HCPCS: 12345; 36415; 36416; 71045; 80053; 80069; 80306; 80307; 81001; 82962; 83605; 83735; 83880; 84100; 84145; 84703; 85025; 85378; 86140; 87086; 93005; 94664; 96372; 99283; J0573; J0696; J1650; J1815; J2060; J2765; J3411; J3475; J3490; J7030; J8540

== ENCOUNTER → 2020-04-17 14:29 | Outpatient (BNVA) | payer MEDICAID, SELFPAY | PROVIDERS: PCP Nurse Practitioner; Visit Provider Nurse Practitioner | DX: M25.571 Pain in right ankle and joints of right foot (principal); M25.572 Pain in left ankle and joints of left foot; M79.671 Pain in right foot; M79.672 Pain in left foot | CPT/HCPCS: 73610; 73630 ==

== ENCOUNTER 2020-05-03 14:51 | Inpatient (IN) | payer MEDICAID, SELFPAY ==
--- NOTE | 2020-05-03 15:04 | ED_ITS ---
Documented by User: ANDI Benitez 05/03/20 17:09 HPI - Alcohol General: Chief Complaint: Alcohol Stated Complaint: BAL 348 Time Seen by Provider: 05/03/20 14:54 Source: patient and EMS Mode of arrival: EMS Limitations: no limitations and altered mental status (intoxicated ) History of Present Illness: HPI narrative: Patient is a 30-year-old female who is extremely well-known to our emergency department here after police decided she needed to be brought for emergent evaluation for acute alcohol intoxication. Patient tells me she had court date today and arrived intoxicated. She states because of this the police arrested her for public intoxication and brought her to [facility]. While at [facility] they obtained a blood alcohol level which was 348. Even though the patient was alert, oriented, walking and talking, they decided to bring her here because her alcohol was too high to stay in [facility]. Now that patient is here she is now telling me she is suicidal. She tells me she has a machete in her bed and she knows how to use it. She is requesting numerous times to go to [facility]. complaint: alcohol intoxication Last drink: Hours (ago) Chronic alcohol use: Yes Previous visits for alcohol intoxication: Yes Recent trauma: No Associated symptoms: Reports depression and suicidal ideation; Deny abdominal pain, nausea or vomiting Treatments prior to arrival: none Review of Systems Const: Denies: fever(s), chills, body aches, fatigue or malaise Card: Denies: chest pain Resp: Denies: dyspnea GI: Denies: abdominal pain, nausea, vomiting or diarrhea Musc: Denies: neck pain, back pain, extremity pain, extremity swelling, joint pain or joint swelling Neuro: Denies: headache(s), numbness in extremities, weakness in extremities or sensory changes Psych: Reports: depression, hopelessness and suicidal ideation [facility] ED PFSH: Medical History Alcohol abuse with alcohol-induced mood disorder Essential (primary) hypertension not on any chronic treatment 09/26 Family history of alpha 1 antitrypsin deficiency Fibromyalgia Generalized anxiety disorder H/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, includes meth, heroin, others, on buprenorphine Hepatitis C antibody positive in blood Hx of abscess of skin and subcutaneous tissue right arm Major depressive disorder, recurrent, moderate Nontoxic thyroid nodule Opioid abuse Polycystic ovarian syndrome polycystic ovaries not notated on CT abdomen/pelvis 01/26 Tobacco dependency Unspecified asthma, uncomplicated onset in childhood Surgical History Hx of cholecystectomy Family History Other Ppjsd-3-gswzwxyomke deficiency Drug abuse, amphetamine type Hypertension Social History Smoking and tobacco status: current every day smoker cigarettes Packs smoked per day: 1.5 Years cigarettes smoked: 15 Quit status (tobacco): considering quitting Second hand smoke exposure: Yes Smoking risk assessment/counseling performed?: Yes Alcohol intake: current Alcohol intake frequency: 3 or more drinks per day Alcohol type: hard liquor Desire information about alcohol rehabilitation?: Yes Counseling given: No Desire information about substance/drug rehabilitation?: No Counseling given: No Other details last substance use: Has used methamphetamine, heroin, pain medications. Adopted: No Caregiver/support person: No Lives independently: Yes Household members: friend(s) Housing: Manufactured/Mobile home Marital status: Single Number of children: 2 service: No Current occupational status: unemployed History of recent travel: No Current gender identity: Female Female Reproductive History: Date of last menstrual period: 03/18/20 Para: 2 Physical Exam Const: COMMON NORMALS: patient oriented x3 and alert EXAM LIMITATIONS: altered mental status (intoxicated) GENERAL APPEARANCE: cooperative NUTRITIONAL APPEARANCE: obese ORIENTATION/CONSCIOUSNESS: Yes awake, Yes oriented to person, Yes oriented to place and Yes oriented to time Resp: COMMON NORMALS: normal respiratory effort and clear to auscultation bilaterally AUSCULTATION: clear to auscultation bilaterally Cardio: COMMON NORMALS: regular rhythm RATE: tachycardic RHYTHM: regular rhythm Neuro: ADWOA COMA SCALE: document GCS findings Beatrice coma scale eye opening: Spontaneous Adwoa coma scale verbal response: Orientated Beatrice coma scale motor response: Obey commands Adwoa coma scale total score: 15 COMMON NORMALS: patient oriented x3 SENSORIUM/ORIENTATION: Yes alert, Yes oriented to person, Yes oriented to place and Yes oriented to time Psych: COMMON NORMALS: cooperative, activity/motor behavior normal, denies hallucinations and denies homicidal ideation APPEARANCE: Yes other (intoxicated ) ATTITUDE: Yes Belligerent attititude/behavior present ACTIVITY/MOTOR BEHAVIOR: Yes appropriate eye contact SPEECH: Yes slurred MOOD & AFFECT: Yes euthymic mood THOUGHT CONTENT: Yes Normal thought content present ATTENTION/CONCENTRATION: Yes attention grossly intact and Yes concentration grossly intact MEMORY/COGNITION: Yes memory grossly intact and Yes cognition grossly intact INSIGHT: Fair insight present (Psych) JUDGEMENT: Limited judgement present (Psych) (secondary to intoxication ) Skin: COMMON NORMALS: no rashes or lesions noted GENERAL SKIN EXAM: no rashes or lesions noted Course ED course: Patient threatening to elope from ED. She is obviously intoxicated at this time. She has made several suicidal statements. I have placed an affidavit on her chart. Consultations: Consultation #1: Dr. Reed-recommends continuing fluids at this time and will need to have etoh down closer 200; can reassess suicidal ideations at that time and can re-consult with him Vital Signs: Vital signs: Vital Signs Temperature 97.8 F 05/03/20 15:12 Pulse Rate 84 05/03/20 19:49 Respiratory Rate 18 05/03/20 19:49 Blood Pressure 142/95 05/03/20 19:49 Pulse Oximetry 96 05/03/20 19:49 MDM - Alcohol Lab Data: Labs: Lab Results 05/03/20 05/03/20 05/03/20 Range/Units 15:35 15:49 15:49 WBC 4.7 (4.0-10.0) 10^3/ uL RBC 4.31 (4.1-5.3) 10^6/u L Hgb 14.5 (11.5-15.3) g/dL Hct 44.4 (37.0-47.0) % MCV 103.0 H (81-99) fL MCH 33.6 (28.0-34.0) pg MCHC 32.7 (30.0-36.0) g/dL RDW 14.7 (12.1-15.1) % Plt Count 171 (130-400) 10^3/c mm MPV 9.6 (7.4-10.4) fL Neut % (Auto) 33.0 % Lymph % (Auto) 54.6 % [place] % (Auto) 4.3 % Eos % (Auto) 7.5 % Baso % (Auto) 0.6 % Neut # (Auto) 1.53 L (1.8-7.7) 10^3/u L Lymph # (Auto) 2.5 (0.8-4.8) 10^3/u L [place] # (Auto) 0.2 (0.2-0.9) 10^3/u L Eos # (Auto) 0.4 (0.0-0.8) 10^3/u L Baso # (Auto) 0.0 (0.0-0.1) 10^3/u L Nucleated RBC % (a uto) 0 % Nucleated RBCs # 0.0 /100WBC Sodium 140 (136-145) mmol/L Potassium 3.3 L (3.5-5.1) mmol/L Chloride 99 (98-107) mmol/L Carbon Dioxide 30 H (22-29) mmol/L Anion Gap 14.3 (5-19) BUN 4 L (6-20) mg/dL Creatinine 0.7 (0.5-0.9) mg/dL GFR Calculation 97.6 (90-130) mL/min Glucose 123 H (65-115) mg/dL Calculated Osmolal ity 288 (285-295) mOsm/k g Calcium 8.5 (8.5-10.5) mg/dL Total Bilirubin 0.7 (0.15-1.2) mg/dL AST 260 H (0-32) U/L ALT 88 H (0-33) U/L Alkaline Phosphata se 113 H (35-105) IU/L Total Protein 7.5 (6.6-8.7) g/dL Albumin 3.7 (3.5-5.2) g/dL Globulin 3.8 (1.3-4.6) g/dL HCG, Qual (Negative) Salicylates < 0.3 L (3-10) mg/dL Urine Opiates Scre en Negative (Negative) ng/mL Acetaminophen < 5.0 L (10-30) ug/mL Ur Barbiturates Sc reen Negative (Negative) ng/mL Ur Phencyclidine S crn Negative (Negative) ng/mL Ur Amphetamines Sc reen Negative (Negative) ng/mL U Benzodiazepines Scrn Positive H (Negative) ng/mL Urine Cocaine Scre en Negative (Negative) ng/mL U Marijuana (THC) Screen Negative (Negative) ng/mL Ethyl Alcohol 369 H* (0-10) mg/dL 05/03/20 05/03/20 05/03/20 Range/Units 15:49 15:49 19:12 WBC (4.0-10.0) 10^3/ uL RBC (4.1-5.3) 10^6/u L Hgb (11.5-15.3) g/dL Hct (37.0-47.0) % MCV (81-99) fL MCH (28.0-34.0) pg MCHC (30.0-36.0) g/dL RDW (12.1-15.1) % Plt Count (130-400) 10^3/c mm MPV (7.4-10.4) fL Neut % (Auto) % Lymph % (Auto) % [place] % (Auto) % Eos % (Auto) % Baso % (Auto) % Neut # (Auto) (1.8-7.7) 10^3/u L Lymph # (Auto) (0.8-4.8) 10^3/u L [place] # (Auto) (0.2-0.9) 10^3/u L Eos # (Auto) (0.0-0.8) 10^3/u L Baso # (Auto) (0.0-0.1) 10^3/u L Nucleated RBC % (a uto) % Nucleated RBCs # /100WBC Sodium (136-145) mmol/L Potassium (3.5-5.1) mmol/L Chloride (98-107) mmol/L Carbon Dioxide (22-29) mmol/L Anion Gap (5-19) BUN (6-20) mg/dL Creatinine (0.5-0.9) mg/dL GFR Calculation (90-130) mL/min Glucose (65-115) mg/dL Calculated Osmolal ity (285-295) mOsm/k g Calcium (8.5-10.5) mg/dL Total Bilirubin (0.15-1.2) mg/dL AST (0-32) U/L ALT (0-33) U/L Alkaline Phosphata se (35-105) IU/L Total Protein (6.6-8.7) g/dL Albumin (3.5-5.2) g/dL Globulin (1.3-4.6) g/dL HCG, Qual Negative (Negative) Salicylates (3-10) mg/dL Urine Opiates Scre en (Negative) ng/mL Acetaminophen (10-30) ug/mL Ur Barbiturates Sc reen (Negative) ng/mL Ur Phencyclidine S crn (Negative) ng/mL Ur Amphetamines Sc reen (Negative) ng/mL U Benzodiazepines Scrn (Negative) ng/mL Urine Cocaine Scre en (Negative) ng/mL U Marijuana (THC) Screen (Negative) ng/mL Ethyl Alcohol Cancelled 262 H (0-10) mg/dL 05/03/20 Range/Units 22:00 WBC (4.0-10.0) 10^3/ uL RBC (4.1-5.3) 10^6/u L Hgb (11.5-15.3) g/dL Hct (37.0-47.0) % MCV (81-99) fL MCH (28.0-34.0) pg MCHC (30.0-36.0) g/dL RDW (12.1-15.1) % Plt Count (130-400) 10^3/c mm MPV (7.4-10.4) fL Neut % (Auto) % Lymph % (Auto) % [place] % (Auto) % Eos % (Auto) % Baso % (Auto) % Neut # (Auto) (1.8-7.7) 10^3/u L Lymph # (Auto) (0.8-4.8) 10^3/u L [place] # (Auto) (0.2-0.9) 10^3/u L Eos # (Auto) (0.0-0.8) 10^3/u L Baso # (Auto) (0.0-0.1) 10^3/u L Nucleated RBC % (a uto) % Nucleated RBCs # /100WBC Sodium (136-145) mmol/L Potassium (3.5-5.1) mmol/L Chloride (98-107) mmol/L Carbon Dioxide (22-29) mmol/L Anion Gap (5-19) BUN (6-20) mg/dL Creatinine (0.5-0.9) mg/dL GFR Calculation (90-130) mL/min Glucose (65-115) mg/dL Calculated Osmolal ity (285-295) mOsm/k g Calcium (8.5-10.5) mg/dL Total Bilirubin (0.15-1.2) mg/dL AST (0-32) U/L ALT (0-33) U/L Alkaline Phosphata se (35-105) IU/L Total Protein (6.6-8.7) g/dL Albumin (3.5-5.2) g/dL Globulin (1.3-4.6) g/dL HCG, Qual (Negative) Salicylates (3-10) mg/dL Urine Opiates Scre en (Negative) ng/mL Acetaminophen (10-30) ug/mL Ur Barbiturates Sc reen (Negative) ng/mL Ur Phencyclidine S crn (Negative) ng/mL Ur Amphetamines Sc reen (Negative) ng/mL U Benzodiazepines Scrn (Negative) ng/mL Urine Cocaine Scre en (Negative) ng/mL U Marijuana (THC) Screen (Negative) ng/mL Ethyl Alcohol 173 H (0-10) mg/dL Discharge Plan Discharge Admit Provider: Zain Reed Clinical Impression: Chronic alcohol abuse Alcoholic intoxication Qualifiers: Complication of substance-induced condition: uncomplicated Qualified Code(s): F10.920 - Alcohol use, unspecified with intoxication, uncomplicated Condition: Stable Sign Out Sign Out Data: Patient Sign Out occurred on 05/03/20 at 17:13. Patient's care was discussed, and care was transferred from to ANDI Ni. Coding Level of Care Code ED Heavy Equipment Operator Apprentice for Chg Fwd Exam Detailed Documented by User: ANDI Ni 05/04/20 00:12 HPI - Alcohol General: Chief Complaint: Alcohol Stated Complaint: BAL 348 Time Seen by Provider: 05/03/20 14:54 PFSH ED PFSH: Medical History Alcohol abuse with alcohol-induced mood disorder Essential (primary) hypertension not on any chronic treatment 09/26 Family history of alpha 1 antitrypsin deficiency Fibromyalgia Generalized anxiety disorder H/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, includes meth, heroin, others, on buprenorphine Hepatitis C antibody positive in blood Hx of abscess of skin and subcutaneous tissue right arm Major depressive disorder, recurrent, moderate Nontoxic thyroid nodule Opioid abuse Polycystic ovarian syndrome polycystic ovaries not notated on CT abdomen/pelvis 01/26 Tobacco dependency Unspecified asthma, uncomplicated onset in childhood Surgical History Hx of cholecystectomy Family History Other Nioun-2-uvxbbabmopm deficiency Drug abuse, amphetamine type Hypertension Social History Smoking and tobacco status: current every day smoker cigarettes Packs smoked per day: 1.5 Years cigarettes smoked: 15 Quit status (tobacco): considering quitting Second hand smoke exposure: Yes Smoking risk assessment/counseling performed?: Yes Alcohol intake: current Alcohol intake frequency: 3 or more drinks per day Alcohol type: hard liquor Desire information about alcohol rehabilitation?: Yes Counseling given: No Desire information about substance/drug rehabilitation?: No Counseling given: No Other details last substance use: Has used methamphetamine, heroin, pain medications. Adopted: No Caregiver/support person: No Lives independently: Yes Household members: friend(s) Housing: Manufactured/Mobile home Marital status: Single Number of children: 2 service: No Current occupational status: unemployed History of recent travel: No Current gender identity: Female Course Consultations: Consultation #1: I contacted Dr. Reed and told about patient case and that patient's blood alcohol level had dropped below 200 and she is still having thoughts of suicide. Dr. Reed recommended that I put patient on a 96-hour hold and admit to [facility]. Vital Signs: Vital signs: Vital Signs Temperature 97.8 F 05/03/20 15:12 Pulse Rate 84 05/03/20 19:49 Respiratory Rate 18 05/03/20 19:49 Blood Pressure 142/95 05/03/20 19:49 Pulse Oximetry 96 05/03/20 19:49 MDM - Alcohol MDM Narrative: Medical decision making narrative: Patient is a 30-year-old female comes to the ED intoxicated and made several suicidal statements. Chantale Singh performed the initial history physical exam and lab work-up. Patient's blood alcohol level was 369 when she first came into the ED. Chantale then contacted Dr. Reed and told about patient case and he recommended giving patient IV fluids and holding patient here in the ED until her alcohol level gets to around 200 and then reassess. After patient was given IV fluids here in the ED her blood alcohol level went down to 173 and she was still stating she was suicidal. I contacted Dr. Reed and he recommended putting patient on a 96-hour hold and admitting to [facility]. Affidavit filled out and 96-hour hold paperwork signed and completed. Lab Data: Attestation: I reviewed the patient's lab results. Labs: Lab Results 05/03/20 05/03/20 05/03/20 Range/Units 15:35 15:49 15:49 WBC 4.7 (4.0-10.0) 10^3/ uL RBC 4.31 (4.1-5.3) 10^6/u L Hgb 14.5 (11.5-15.3) g/dL Hct 44.4 (37.0-47.0) % MCV 103.0 H (81-99) fL MCH 33.6 (28.0-34.0) pg MCHC 32.7 (30.0-36.0) g/dL RDW 14.7 (12.1-15.1) % Plt Count 171 (130-400) 10^3/c mm MPV 9.6 (7.4-10.4) fL Neut % (Auto) 33.0 % Lymph % (Auto) 54.6 % [place] % (Auto) 4.3 % Eos % (Auto) 7.5 % Baso % (Auto) 0.6 % Neut # (Auto) 1.53 L (1.8-7.7) 10^3/u L Lymph # (Auto) 2.5 (0.8-4.8) 10^3/u L [place] # (Auto) 0.2 (0.2-0.9) 10^3/u L Eos # (Auto) 0.4 (0.0-0.8) 10^3/u L Baso # (Auto) 0.0 (0.0-0.1) 10^3/u L Nucleated RBC % (a uto) 0 % Nucleated RBCs # 0.0 /100WBC Sodium 140 (136-145) mmol/L Potassium 3.3 L (3.5-5.1) mmol/L Chloride 99 (98-107) mmol/L Carbon Dioxide 30 H (22-29) mmol/L Anion Gap 14.3 (5-19) BUN 4 L (6-20) mg/dL Creatinine 0.7 (0.5-0.9) mg/dL GFR Calculation 97.6 (90-130) mL/min Glucose 123 H (65-115) mg/dL Calculated Osmolal ity 288 (285-295) mOsm/k g Calcium 8.5 (8.5-10.5) mg/dL Total Bilirubin 0.7 (0.15-1.2) mg/dL AST 260 H (0-32) U/L ALT 88 H (0-33) U/L Alkaline Phosphata se 113 H (35-105) IU/L Total Protein 7.5 (6.6-8.7) g/dL Albumin 3.7 (3.5-5.2) g/dL Globulin 3.8 (1.3-4.6) g/dL HCG, Qual (Negative) Salicylates < 0.3 L (3-10) mg/dL Urine Opiates Scre en Negative (Negative) ng/mL Acetaminophen < 5.0 L (10-30) ug/mL Ur Barbiturates Sc reen Negative (Negative) ng/mL Ur Phencyclidine S crn Negative (Negative) ng/mL Ur Amphetamines Sc reen Negative (Negative) ng/mL U Benzodiazepines Scrn Positive H (Negative) ng/mL Urine Cocaine Scre en Negative (Negative) ng/mL U Marijuana (THC) Screen Negative (Negative) ng/mL Ethyl Alcohol 369 H* (0-10) mg/dL 05/03/20 05/03/20 05/03/20 Range/Units 15:49 15:49 19:12 WBC (4.0-10.0) 10^3/ uL RBC (4.1-5.3) 10^6/u L Hgb (11.5-15.3) g/dL Hct (37.0-47.0) % MCV (81-99) fL MCH (28.0-34.0) pg MCHC (30.0-36.0) g/dL RDW (12.1-15.1) % Plt Count (130-400) 10^3/c mm MPV (7.4-10.4) fL Neut % (Auto) % Lymph % (Auto) % [place] % (Auto) % Eos % (Auto) % Baso % (Auto) % Neut # (Auto) (1.8-7.7) 10^3/u L Lymph # (Auto) (0.8-4.8) 10^3/u L [place] # (Auto) (0.2-0.9) 10^3/u L Eos # (Auto) (0.0-0.8) 10^3/u L Baso # (Auto) (0.0-0.1) 10^3/u L Nucleated RBC % (a uto) % Nucleated RBCs # /100WBC Sodium (136-145) mmol/L Potassium (3.5-5.1) mmol/L Chloride (98-107) mmol/L Carbon Dioxide (22-29) mmol/L Anion Gap (5-19) BUN (6-20) mg/dL Creatinine (0.5-0.9) mg/dL GFR Calculation (90-130) mL/min Glucose (65-115) mg/dL Calculated Osmolal ity (285-295) mOsm/k g Calcium (8.5-10.5) mg/dL Total Bilirubin (0.15-1.2) mg/dL AST (0-32) U/L ALT (0-33) U/L Alkaline Phosphata se (35-105) IU/L Total Protein (6.6-8.7) g/dL Albumin (3.5-5.2) g/dL Globulin (1.3-4.6) g/dL HCG, Qual Negative (Negative) Salicylates (3-10) mg/dL Urine Opiates Scre en (Negative) ng/mL Acetaminophen (10-30) ug/mL Ur Barbiturates Sc reen (Negative) ng/mL Ur Phencyclidine S crn (Negative) ng/mL Ur Amphetamines Sc reen (Negative) ng/mL U Benzodiazepines Scrn (Negative) ng/mL Urine Cocaine Scre en (Negative) ng/mL U Marijuana (THC) Screen (Negative) ng/mL Ethyl Alcohol Cancelled 262 H (0-10) mg/dL 05/03/20 Range/Units 22:00 WBC (4.0-10.0) 10^3/ uL RBC (4.1-5.3) 10^6/u L Hgb (11.5-15.3) g/dL Hct (37.0-47.0) % MCV (81-99) fL MCH (28.0-34.0) pg MCHC (30.0-36.0) g/dL RDW (12.1-15.1) % Plt Count (130-400) 10^3/c mm MPV (7.4-10.4) fL Neut % (Auto) % Lymph % (Auto) % [place] % (Auto) % Eos % (Auto) % Baso % (Auto) % Neut # (Auto) (1.8-7.7) 10^3/u L Lymph # (Auto) (0.8-4.8) 10^3/u L [place] # (Auto) (0.2-0.9) 10^3/u L Eos # (Auto) (0.0-0.8) 10^3/u L Baso # (Auto) (0.0-0.1) 10^3/u L Nucleated RBC % (a uto) % Nucleated RBCs # /100WBC Sodium (136-145) mmol/L Potassium (3.5-5.1) mmol/L Chloride (98-107) mmol/L Carbon Dioxide (22-29) mmol/L Anion Gap (5-19) BUN (6-20) mg/dL Creatinine (0.5-0.9) mg/dL GFR Calculation (90-130) mL/min Glucose (65-115) mg/dL Calculated Osmolal ity (285-295) mOsm/k g Calcium (8.5-10.5) mg/dL Total Bilirubin (0.15-1.2) mg/dL AST (0-32) U/L ALT (0-33) U/L Alkaline Phosphata se (35-105) IU/L Total Protein (6.6-8.7) g/dL Albumin (3.5-5.2) g/dL Globulin (1.3-4.6) g/dL HCG, Qual (Negative) Salicylates (3-10) mg/dL Urine Opiates Scre en (Negative) ng/mL Acetaminophen (10-30) ug/mL Ur Barbiturates Sc reen (Negative) ng/mL Ur Phencyclidine S crn (Negative) ng/mL Ur Amphetamines Sc reen (Negative) ng/mL U Benzodiazepines Scrn (Negative) ng/mL Urine Cocaine Scre en (Negative) ng/mL U Marijuana (THC) Screen (Negative) ng/mL Ethyl Alcohol 173 H (0-10) mg/dL Discharge Plan Discharge Admit Provider: Zain Reed Clinical Impression: Chronic alcohol abuse Alcoholic intoxication Qualifiers: Complication of substance-induced condition: uncomplicated Qualified Code(s): F10.920 - Alcohol use, unspecified with intoxication, uncomplicated Condition: Stable Sign Out Sign Out Data: Patient Sign Out occurred on 05/03/20 at 17:13. Patient's care was discussed, and care was transferred from to ANDI Ni. Coding Level of Care Code ED Heavy Equipment Operator Apprentice for Jerg Fwd Exam Detailed
[2020-05-03 15:12] VITALS: BP 142/95; PULSE 121; RESP 20; TEMP 36.6; O2SAT 92; BMI 47.0
[2020-05-03 15:27] VITALS: BP 142/95; PULSE 116; RESP 20; O2SAT 96
--- NOTE | 2020-05-03 15:47 | PC.NURSE ---
Pt asked if she was suicidal, pt states No, but I need to go to rehab for my alcohol . Pt requesting a 96hr hold. Again asked pt if she had any thoughts of harming herself and pt stated If I say yes will you admit me here? . Pt states she is not actively suicidal and states she wants to get help for her alcoholism before it gets to that point . Pt has plans to go to rehab on 05/24 and states I'll have to start de-toxing on the . Pt repeatedly asking for food and drink.
[2020-05-03 15:56] LABS: Basophils % 0.6 %; Eosinophils # 0.4 10^3/uL (0.0-0.8); Eosinophils % 7.5 %; Hematocrit 44.4 % (37.0-47.0); Hemoglobin 14.5 g/dL (11.5-15.3); Lymphocytes # 2.5 10^3/uL (0.8-4.8); Lymphocytes % 54.6 %; Mean Corpuscular HGB Conc 32.7 g/dL (30.0-36.0); Mean Corpuscular Hemoglobin 33.6 pg (28.0-34.0); Mean Platelet Volume 9.6 fL (7.4-10.4); Monocytes # 0.2 10^3/uL (0.2-0.9); Monocytes % 4.3 %; Neutrophils # 1.53 10^3/uL (1.8-7.7); Nucleated Red Blood Cells % 0 %; Platelet Count 171 10^3/cmm (130-400); Red Blood Count 4.31 10^6/uL (4.1-5.3); Red Cell Distribution Width 14.7 % (12.1-15.1); White Blood Count 4.7 10^3/uL (4.0-10.0)
[2020-05-03 16:14] LABS: HCG, Serum Qual Negative (Negative)
[2020-05-03 16:18] LABS: Alanine Aminotransferase 88 U/L (0-33); Albumin Level 3.7 g/dL (3.5-5.2); Alkaline Phosphatase 113 IU/L (35-105); Blood Urea Nitrogen 4 mg/dL (6-20); Calcium 8.5 mg/dL (8.5-10.5); Carbon Dioxide 30 mmol/L (22-29); Chloride 99 mmol/L (98-107); Globulin 3.8 g/dL (1.3-4.6); Glomerular Filtration Rate 97.6 mL/min (90-130); Glucose 123 mg/dL (65-115); Osmolality Calculated 288 mOsm/kg (285-295); Sodium 140 mmol/L (136-145); Total Bilirubin 0.7 mg/dL (0.15-1.2); Total Protein 7.5 g/dL (6.6-8.7)
[2020-05-03] MEDS: folic acid 1 MG, multivitamin inj 10 ML, thiamine 100 MG in sodium chloride 0.9% 1,000 ML 252.8 MG IV (16:22)
[2020-05-03] MEDS: LORazepam 2 mg/mL INJ 1 mL 0.5 MG IVP ×2 (16:22→17:21)
--- NOTE | 2020-05-03 16:30 | PC.NURSE ---
Sitter at doorway. Very talkative. Getting upset and called Security. Gave food and drink.
[2020-05-03 16:34] LABS: Acetaminophen < 5.0 ug/mL (10-30); Alcohol Level 369 mg/dL (0-10); Anion Gap 14.3 (5-19); Aspartate Amino Transferase 260 U/L (0-32); Potassium 3.3 mmol/L (3.5-5.1); Salicylate < 0.3 mg/dL (3-10)
--- NOTE | 2020-05-03 16:34 | PC.NURSE ---
Pt requesting her feet to be checked out . Pt told that provider has already assessed feet. Pt states if someone doesn't come in here and look at me I'm gonna leave and go to another hospital that will take care of me . Security called.
[2020-05-03 16:44] LABS: Amphetamines Screen Urine Negative (Negative); Barbiturates Screen Urine Negative (Negative); Benzodiazepines Screen Urine Positive (Negative); Cocaine Screen Urine Negative (Negative); Opiate Screen Urine Negative (Negative); PCP Screen Urine Negative (Negative); THC Screen Urine Negative (Negative)
[2020-05-03] MEDS: potassium chloride ER 20 mEq Tablet 40 MEQ PO (17:21)
[2020-05-03] MEDS: sodium chloride 0.9% 1,000 ML 999 ML IV (18:25)
--- NOTE | 2020-05-03 18:31 | PC.NURSE ---
Resting with lights off, Banana bag completed, NS started, labs drawn. Sitter at door way. No acute distress
[2020-05-03 19:41] LABS: Alcohol Level 262 mg/dL (0-10)
[2020-05-03 19:49] VITALS: BP 142/95; PULSE 84; RESP 18; O2SAT 96
[2020-05-03] MEDS: LORazepam 2 mg/mL INJ 1 mL 1 MG IVP (21:55)
[2020-05-03 22:35] LABS: Alcohol Level 173 mg/dL (0-10)
[2020-05-03 23:00] VITALS: BP 142/95; PULSE 84; RESP 18; O2SAT 95
[2020-05-04] VITALS (10 sets, daily range): BP systolic 140–162; BP diastolic 82–113; PULSE 74–109; RESP 16–18; TEMP 36.6–36.8; O2SAT 87–95
[2020-05-04] MEDS: ondansetron 4 MG Tablet PO ×3 (04:15→20:19)
[2020-05-04] MEDS: LORazepam 2 mg Tablet PO ×4 (04:15→20:20)
--- NOTE | 2020-05-04 04:32 | PC.NURSE ---
Re-evaluated CIWA noted tremor with arms extended. A score of 13 at 0415. 2mg Ativan given PO.
[2020-05-04] MEDS: metformin XR 500 MG Tablet 1000 MG PO (08:16)
[2020-05-04] MEDS: folic acid 1 mg Tablet PO (08:17)
[2020-05-04] MEDS: venlafaxine ER (24HR) 150 mg Capsule PO (08:17)
[2020-05-04] MEDS: thiamine 100 mg Tablet PO (08:17)
[2020-05-04] MEDS: amlodipine 10 mg Tablet PO (08:17)
[2020-05-04] MEDS: cyanocobalamin 1,000 mcg Tablet 1000 MCG PO (08:17)
[2020-05-04] MEDS: multivitamin therapeutic Tablet 1 TAB PO (08:17)
[2020-05-04] MEDS: LORazepam 1 mg Tablet PO ×2 (08:18→21:16)
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
[2020-05-04] MEDS: albuterol 8 gm MDI 2 PUFF INHALATION ×2 (18:19→19:45)
--- NOTE | 2020-05-04 20:00 | PC.NURSE ---
CIWA 17 PT MILDLY ANXIOUS, BEADS OF SWEAT, TEARS ROLLING DOWN HER FACE, NAUSEATED, SOUND/LIGHT SENSITIVE. pT IS SHAKING VISIBLY. REPORTS FEELING BAD.
[2020-05-04] MEDS: trazodone 150 mg Tablet PO (21:15)
[2020-05-04] MEDS: buprenorphine-naloxone 4-1 mg Film 2 EACH SUBLINGUAL (21:16)
[2020-05-04] MEDS: prazosin 1 mg Capsule PO (21:16)
--- NOTE | 2020-05-04 21:23 | PC.NURSE ---
Patient was given 2mg Ativan PO @ 2O:20 for a CIWA SCORE OF 17.
[2020-05-05] MEDS: LORazepam 2 mg Tablet PO ×3 (00:41→11:23)
[2020-05-05] MEDS: calcium carbonate 500 mg Chew Tablet 1000 MG PO (00:42)
--- NOTE | 2020-05-05 00:45 | PC.NURSE ---
2mg Ativan PO given for CIWA score of 13. two PRN Tums given for nausea.
--- NOTE | 2020-05-05 01:38 | PC.NURSE ---
SIERRA 8-FOLLOW UP
--- NOTE | 2020-05-05 01:39 | PC.NURSE ---
PM ASSESSMENT PT IS DETOXING FROM ALCOHOL WITH A CIWA STARTING AT A 17 AT THE BEGINNING OF SHIFT, PT BLOOD PRESSURE TENDS TO RUN HIGH BUT THIS EVENING IT WAS HIGHER THAN USUAL AT 160/102 [address] TO [address] SHER. HE GAVE ORDER TO INCREASE PT'S ATIVAN 2MG PO PRN, THE PATIENT HAS RESPONDED WELL. HER CURRENT CIWA SCORE IS 8. PT DENIES SI/HI, DENIES AH/VH, DENIES PAIN, REPORTS MILD NAUSEA EVEN AFTER RECEIVING ZOFRAN, PT IS IN HER ROOM RESTING AT THIS TIME.
--- NOTE | 2020-05-05 01:45 | PC.NURSE ---
BREATH SOUNDS PT LUNG SOUNDS ARE TERRIBLE, SHE HAS INSPIRATORY/EXPIRATORY WHEEZES AND IS DIMINISHED THROUGHOUT. PT HAS A WET/DEEP COUGH THAT IS BECOMING CONTINUOUS. PT STATES, I AM NOT ABLE TO GET ANYTHING UP WHEN I COUGH, IT IS SO THICK. PT IS RECENTLY RECOVERED FROM COVID.
[2020-05-05] MEDS: acetaminophen 325 mg Tablet 650 MG PO (03:31)
--- NOTE | 2020-05-05 03:42 | PC.NURSE ---
2mg Ativan PO given for CIWA score of 15.
[2020-05-05 06:00] VITALS: BP 150/96; PULSE 77; RESP 18; TEMP 36.7; O2SAT 93
[2020-05-05] MEDS: amlodipine 10 mg Tablet PO (07:30)
[2020-05-05] MEDS: metformin XR 500 MG Tablet 1000 MG PO (07:30)
[2020-05-05] MEDS: LORazepam 1 mg Tablet PO ×2 (07:31→22:17)
[2020-05-05] MEDS: venlafaxine ER (24HR) 150 mg Capsule PO (07:31)
[2020-05-05] MEDS: folic acid 1 mg Tablet PO (07:31)
[2020-05-05] MEDS: cyanocobalamin 1,000 mcg Tablet 1000 MCG PO (07:31)
[2020-05-05] MEDS: multivitamin therapeutic Tablet 1 TAB PO (07:31)
[2020-05-05] MEDS: thiamine 100 mg Tablet PO (07:31)
[2020-05-05] MEDS: buprenorphine-naloxone 4-1 mg Film 2 EACH SUBLINGUAL ×3 (07:32→22:15)
[2020-05-05] MEDS: ondansetron 4 MG Tablet PO ×2 (07:43→22:17)
[2020-05-05] MEDS: albuterol 8 gm MDI 2 PUFF INHALATION (07:56)
[2020-05-05 07:57] VITALS: PULSE 80; RESP 17; O2SAT 96
[2020-05-05 07:59] VITALS: PULSE 82
[2020-05-05 13:51] VITALS: BP 139/89; PULSE 70; RESP 16; TEMP 36.6; O2SAT 90
--- NOTE | 2020-05-05 17:33 | PM.NPN ---
Subjective NPU Subjective: Interval history: Wendy presented today somewhat backtracking on the plan of getting into [facility] as possible and now is reporting that she has spoken with him and she is lined up for May 15. Her reticence is supposedly hinging up on needing to get her checks over the next several days to pay for the tiny house that she is reportedly purchasing and selling her camper. We discussed the risk benefits and alternatives of this change are concerned about her not going directly to the treatment we have designed. We would have been able to get her in on Friday. Additionally she was a little slurred in her voice and speech and we discussed her over requesting the Ativan now after not getting enough the day before that she has likely had too much. We discussed that we need to get her to taper off the Ativan if she going to discharge. Mental Status Exam MSE Comments: This is a morbidly obese white female in hospital scrubs with limited grooming and adequate eye contact. No abnormal movements except for psychomotor retardation. Cooperative with exam in no acute distress. Speech was decreased rate and volume and slurred. Mood described as I feel better and would like to leave, affect intoxicated. Thought process organized. Thought content: Patient denied suicidal or homicidal ideation, there were no delusions reported or noted, she denied any auditory or visual hallucinations. Attention and concentration appeared limited and memory was unreliable but none were formally tested. She is alert and oriented x3. Insight and judgment are limited and impulse control is impaired. Vitals/I&O/Wt Last Vital Signs Temp 98.3 F 05/05/20 21:44 Pulse 79 05/05/20 21:44 Resp 17 05/05/20 21:44 BP 150/102 05/05/20 21:44 Pulse Ox 93 05/05/20 21:44 Data NPU : 05/03/20 15:49 05/03/20 15:49 A&P Additional A&P Information (1) Alcoholic intoxication: (2) Chronic alcohol abuse: (3) Pancytopenia: (4) Alcohol dependence with withdrawal: (5) Thrombocytopenia: (6) Hypokalemia: (7) Posttraumatic stress disorder: (8) Type 2 diabetes mellitus with hyperglycemia: (9) Alcohol use disorder: (10) Buprenorphine dependence: (11) Tobacco abuse: (12) Unspecified asthma, uncomplicated: (13) Major depressive disorder, recurrent: Additional A&P Information This is a 30-year-old white female with a long history of mental health diagnoses including depression and PTSD, significant active addiction most notably alcohol on agonist therapy for opiate addiction who presents intoxicated on a 96-hour hold. 1. Continue current medication. 2. Continue every 15 minute checks for safety. 3. Encourage individual, group and milieu therapies. 4. Encourage sober living treatment after discharge at the highest level of care to which he is willing to commit. 5. Continue CIWA protocol with cut back on Ativan to 1 mg dosing. Involuntary Hold Information 96 Hour Hold: 96 Hour Involuntary Admission: Yes 96 Hour Hold Ending Date: 04/11/21 96 Hour Hold Ending Time: 23:18 Attestations NPU Medical Necessity Statement*: Inpatient hospitalization is medically necessary and the clinically appropriate intervention at this time. We will monitor medications and make changes as indicated. Likely length of stay 2-3 days. Coding Level of Care Code Acute Pattern Chart Writer for Bartolo Lund
[2020-05-05 20:40] VITALS: PULSE 75; RESP 19; O2SAT 96
[2020-05-05 21:44] VITALS: BP 150/102; PULSE 79; RESP 17; TEMP 36.8; O2SAT 93
[2020-05-05] MEDS: prazosin 1 mg Capsule PO (22:16)
[2020-05-05] MEDS: trazodone 150 mg Tablet PO (22:17)
--- NOTE | 2020-05-06 00:30 | PC.NURSE ---
PT ASSESSMENT PT B/P ELEVATED 150/102, CIWA IS 8 AT THIS TIME. DENIES PAIN, DENIES SI/HI, DENIES AH/VH. HOWEVER, PT IS IN HER ROOM MUMBLING, TALKING TO HERSELF AT TIMES. EARLY IN SHIFT, PT WAS NOT ABLE TO STAND WITHOUT STUMBLING, COMPLAINED OF NAUSEA, SPEECH UNCLEAR/SLURRED, AND SEEMED SEDATED. HEART SOUNDS WERE WNL, HOWEVER, LUNGS ARE DIMINISHED BUT SLIGHTLY IMPROVED SINCE LAST NIGHT. PT DENIES PAIN AT THIS TIME. CURRENTLY, PT IS MORE STEADY ON HER FEET, BALANCE IMPROVED, PT AFFECT IS FLAT, SHE IS OFTEN AT THE NURSES STATION REQUESTING VARIOUS THINGS, ESPECIALLY MEDICATION. SLEEP PATTERN IS BROKEN/INTERMITTENT AT BEST. LAB RESULTS FROM ADMISSION ARE CONCERNING, BUN 4,(PT IS DRINKING EXCESSIVE AMOUNTS OF WATER), AST IS 260 W/ SLIGHT HEMOLYSIS NOTED, ALT IS 88, POTASSIUM IS SLIGHTLY LOWER THAN NORMAL AT 3.3. REPEAT LABS REQUESTED.
[2020-05-06] MEDS: OLANZapine 5 mg ODT PO (03:54)
--- NOTE | 2020-05-06 03:55 | PC.NURSE ---
zyprexa zydis 5mg PO for agitation/AH. Pt is on 3rd day of detox from alcohol. Pt slept most of the day shift per rounding log of pt behavior, she is requesting medication. At the beginning of shift, pt was unable to communicate clearly, slurring her words, impaired balance, and still talking incoherently with unseen persons. She is agitated, wonders halls, paces, checks time, repeats I wanna go home and sleep in bed, She also comes to the nurses desk saying, I hear my phone ringing. after she received scheduled Ativan 1mg PO. Will continue to monitor progress.
[2020-05-06 06:00] VITALS: BP 155/103; PULSE 62; RESP 17; TEMP 36.9; O2SAT 94
[2020-05-06] MEDS: amlodipine 10 mg Tablet PO (07:40)
[2020-05-06] MEDS: metformin XR 500 MG Tablet 1000 MG PO (07:40)
[2020-05-06] MEDS: thiamine 100 mg Tablet PO (07:40)
[2020-05-06] MEDS: cyanocobalamin 1,000 mcg Tablet 1000 MCG PO (07:40)
[2020-05-06] MEDS: venlafaxine ER (24HR) 150 mg Capsule PO (07:41)
[2020-05-06] MEDS: folic acid 1 mg Tablet PO (07:41)
[2020-05-06] MEDS: multivitamin therapeutic Tablet 1 TAB PO (07:41)
[2020-05-06] MEDS: buprenorphine-naloxone 4-1 mg Film 2 EACH SUBLINGUAL ×3 (07:41→20:29)
[2020-05-06] MEDS: fluoxetine 20 mg Capsule PO (07:43)
--- NOTE | 2020-05-06 10:42 | P.PN_ITS ---
Subjective NPU Subjective: Interval history: Wendy presents today reporting things going better. She is less slurring a little more stable as she is walking but not back to baseline. She again began discussing discharge and we discussed the fact that we would want her to be more stable and less utilizing Ativan before she was discharged which she has had improvement over yesterday. She continued to mumble and be somewhat unintelligible in her speaking and she tried to report that she seems like that all the time. She is eating okay and sleeping fine. Mental Status Exam MSE Comments: This is a morbidly obese white female in hospital scrubs with limited grooming and adequate eye contact. No abnormal movements except for psychomotor retardation. Cooperative with exam in no acute distress. Speech was decreased rate and volume and less slurred. Mood described as I feel better and would like to leave, affect less impaired. Thought process organized. Thought content: Patient denied suicidal or homicidal ideation, there were no delusions reported or noted, she denied any auditory or visual hallucinations. Attention and concentration appeared slightly improved and memory was unreliable but none were formally tested. She is alert and oriented x3. Insight and judgment are limited and impulse control is impaired. Vitals/I&O/Wt Last Vital Signs Temp 98.4 F 05/06/20 06:00 Pulse 62 05/06/20 06:00 Resp 17 05/06/20 06:00 BP 155/103 05/06/20 06:00 Pulse Ox 94 05/06/20 06:00 Weight last 48 hrs Weight 124.284 kg Data NPU : 05/06/20 15:08 05/06/20 15:08 A&P Additional A&P Information (1) Alcoholic intoxication: (2) Chronic alcohol abuse: (3) Pancytopenia: (4) Alcohol dependence with withdrawal: (5) Thrombocytopenia: (6) Hypokalemia: (7) Posttraumatic stress disorder: (8) Type 2 diabetes mellitus with hyperglycemia: (9) Alcohol use disorder: (10) Buprenorphine dependence: (11) Tobacco abuse: (12) Unspecified asthma, uncomplicated: (13) Major depressive disorder, recurrent: Additional A&P Information This is a 30-year-old white female with a long history of mental health diagnoses including depression and PTSD, significant active addiction most notably alcohol on agonist therapy for opiate addiction who presents intoxicated on a 96-hour hold. 1. Continue current medication. 2. Continue every 15 minute checks for safety. 3. Encourage individual, group and milieu therapies. 4. Encourage sober living treatment after discharge at the highest level of care to which he is willing to commit. 5. Continue CIWA protocol with cut back on Ativan to 1 mg dosing. Involuntary Hold Information 96 Hour Hold: 96 Hour Involuntary Admission: Yes 96 Hour Hold Ending Date: 04/11/21 96 Hour Hold Ending Time: 23:18 Attestations NPU Medical Necessity Statement*: Inpatient hospitalization is medically necessary and the clinically appropriate intervention at this time. We will monitor medications and make changes as indicated. Likely length of stay 2 days. Coding Level of Care Code Acute Insurance Service Representative for Bartolo Lund
[2020-05-06 14:00] VITALS: BP 116/81; PULSE 66; RESP 16; TEMP 37.1; O2SAT 94
[2020-05-06 16:01] LABS: Basophils % 0.6 %; Eosinophils # 0.3 10^3/uL (0.0-0.8); Eosinophils % 8.5 %; Hematocrit 40.8 % (37.0-47.0); Hemoglobin 13.2 g/dL (11.5-15.3); Lymphocytes # 1.2 10^3/uL (0.8-4.8); Lymphocytes % 34.5 %; Mean Corpuscular HGB Conc 32.4 g/dL (30.0-36.0); Mean Corpuscular Hemoglobin 33.8 pg (28.0-34.0); Mean Corpuscular Volume 104.6 fL (81-99); Mean Platelet Volume 10.3 fL (7.4-10.4); Monocytes # 0.2 10^3/uL (0.2-0.9); Monocytes % 4.8 %; Neutrophils # 1.81 10^3/uL (1.8-7.7); Nucleated Red Blood Cells % 0 %; Platelet Count 113 10^3/cmm (130-400); Red Cell Distribution Width 15.1 % (12.1-15.1); White Blood Count 3.5 10^3/uL (4.0-10.0)
[2020-05-06 16:19] LABS: Estmated Average Glucose 77; Hemoglobin A1C 4.3 % (4.0-6.0)
[2020-05-06 16:20] LABS: Alanine Aminotransferase 46 U/L (0-33); Albumin Level 3.7 g/dL (3.5-5.2); Alkaline Phosphatase 85 IU/L (35-105); Anion Gap 13.7 (5-19); Aspartate Amino Transferase 95 U/L (0-32); Blood Urea Nitrogen 5 mg/dL (6-20); Calcium 9.4 mg/dL (8.5-10.5); Carbon Dioxide 30 mmol/L (22-29); Chloride 99 mmol/L (98-107); Globulin 3.5 g/dL (1.3-4.6); Glucose 81 mg/dL (65-115); Osmolality Calculated 284 mOsm/kg (285-295); Potassium 3.7 mmol/L (3.5-5.1); Sodium 139 mmol/L (136-145); Total Bilirubin 0.8 mg/dL (0.15-1.2); Total Protein 7.2 g/dL (6.6-8.7)
[2020-05-06] MEDS: prazosin 1 mg Capsule PO (20:29)
--- NOTE | 2020-05-06 20:34 | PC.NURSE ---
held trazodone/ativan for now held trazodone this evening, pt sedated at beginning of shift, sternal rub to get response, v/s are normal, pt sedated. Will continue to monitor, v/s will be monitored and recorded q4h, more often if indicated. Will administer later this evening if indicated.
[2020-05-06 20:55] VITALS: BP 121/83; PULSE 63; RESP 16; TEMP 36.9; O2SAT 94
[2020-05-06 23:15] VITALS: BP 126/77
[2020-05-07] MEDS: LORazepam 1 mg Tablet PO ×3 (00:54→20:12)
[2020-05-07] MEDS: trazodone 150 mg Tablet PO ×2 (00:54→20:12)
[2020-05-07 06:00] VITALS: BP 126/74; PULSE 78; RESP 18; TEMP 36.4; O2SAT 93
[2020-05-07] MEDS: amlodipine 10 mg Tablet PO (08:22)
[2020-05-07] MEDS: metformin XR 500 MG Tablet 1000 MG PO (08:22)
[2020-05-07] MEDS: thiamine 100 mg Tablet PO (08:22)
[2020-05-07] MEDS: buprenorphine-naloxone 4-1 mg Film 2 EACH SUBLINGUAL ×3 (08:22→20:11)
[2020-05-07] MEDS: multivitamin therapeutic Tablet 1 TAB PO (08:22)
[2020-05-07] MEDS: fluoxetine 20 mg Capsule PO (08:22)
[2020-05-07] MEDS: folic acid 1 mg Tablet PO (08:22)
[2020-05-07] MEDS: venlafaxine ER (24HR) 150 mg Capsule PO (08:22)
[2020-05-07] MEDS: cyanocobalamin 1,000 mcg Tablet 1000 MCG PO (08:22)
[2020-05-07] MEDS: albuterol 8 gm MDI 2 PUFF INHALATION (08:39)
[2020-05-07 08:40] VITALS: PULSE 77; RESP 18; O2SAT 94
[2020-05-07 14:00] VITALS: BP 133/86; PULSE 86; RESP 18; TEMP 36.3
--- NOTE | 2020-05-07 14:52 | PM.NPN ---
Subjective NPU Subjective: Interval history: Wendy presented today reporting that she feels ready to go home but she has not been up and participant in the day. Discussed the fact that we were not planning on putting her on a additional hold unit tomorrow would be her discharge date if she chose to discharge. She reports she is eating and sleeping better and she is taking less medication for withdrawal. Mental Status Exam MSE Comments: This is a morbidly obese white female in hospital scrubs with limited grooming and adequate eye contact. No abnormal movements except for psychomotor retardation. Cooperative with exam in no acute distress. Speech was decreased rate and volume and less slurred. Mood described as better, affect subdued. Thought process organized. Thought content: Patient denied suicidal or homicidal ideation, there were no delusions reported or noted, she denied any auditory or visual hallucinations. Attention and concentration appeared slightly improved and memory was unreliable but none were formally tested. She is alert and oriented x3. Insight and judgment are limited and impulse control is impaired, but improving. Vitals/I&O/Wt Last Vital Signs Temp 98.7 F 05/07/20 22:00 Pulse 72 05/07/20 22:00 Resp 16 05/07/20 22:00 BP 132/82 05/07/20 22:00 Pulse Ox 91 05/07/20 22:00 Weight last 48 hrs Weight 124.284 kg Data NPU : 05/06/20 15:08 05/06/20 15:08 A&P Additional A&P Information (1) Alcoholic intoxication: (2) Chronic alcohol abuse: (3) Pancytopenia: (4) Alcohol dependence with withdrawal: (5) Thrombocytopenia: (6) Hypokalemia: (7) Posttraumatic stress disorder: (8) Type 2 diabetes mellitus with hyperglycemia: (9) Alcohol use disorder: (10) Buprenorphine dependence: (11) Tobacco abuse: (12) Unspecified asthma, uncomplicated: (13) Major depressive disorder, recurrent: Additional A&P Information This is a 30-year-old white female with a long history of mental health diagnoses including depression and PTSD, significant active addiction most notably alcohol on agonist therapy for opiate addiction who presents intoxicated on a 96-hour hold. 1. Continue current medication. 2. Continue every 15 minute checks for safety. 3. Encourage individual, group and milieu therapies. 4. Encourage sober living treatment after discharge at the highest level of care to which he is willing to commit. 5. Continue CIWA protocol . Involuntary Hold Information 96 Hour Hold: 96 Hour Involuntary Admission: Yes 96 Hour Hold Ending Date: 04/11/21 96 Hour Hold Ending Time: 23:18 Attestations NPU Medical Necessity Statement*: Inpatient hospitalization is medically necessary and the clinically appropriate intervention at this time. We will monitor medications and make changes as indicated. Likely length of stay 1-2 days. Likely discharge tomorrow. Coding Level of Care Code Acute Dermatology Nurse for Bartolo Lund
[2020-05-07] MEDS: prazosin 1 mg Capsule PO (20:11)
[2020-05-07 20:19] LABS: Glucose Point of Care 88 mg/dL (70-110)
[2020-05-07 22:00] VITALS: BP 132/82; PULSE 72; RESP 16; TEMP 37.1; O2SAT 91
[2020-05-08 06:00] VITALS: BP 108/75; PULSE 76; RESP 17; TEMP 37.1; O2SAT 94
[2020-05-08] MEDS: cyanocobalamin 1,000 mcg Tablet 1000 MCG PO (08:01)
[2020-05-08] MEDS: amlodipine 10 mg Tablet PO (08:01)
[2020-05-08] MEDS: venlafaxine ER (24HR) 150 mg Capsule PO (08:01)
[2020-05-08] MEDS: metformin XR 500 MG Tablet 1000 MG PO (08:01)
[2020-05-08] MEDS: multivitamin therapeutic Tablet 1 TAB PO (08:01)
[2020-05-08] MEDS: thiamine 100 mg Tablet PO (08:01)
[2020-05-08] MEDS: fluoxetine 20 mg Capsule PO (08:01)
[2020-05-08] MEDS: LORazepam 1 mg Tablet PO ×2 (08:01→20:20)
[2020-05-08] MEDS: buprenorphine-naloxone 4-1 mg Film 2 EACH SUBLINGUAL ×2 (08:01→15:37)
[2020-05-08] MEDS: folic acid 1 mg Tablet PO (08:03)
[2020-05-08 09:22] VITALS: PULSE 90; RESP 18; O2SAT 97
[2020-05-08] MEDS: albuterol 8 gm MDI 2 PUFF INHALATION ×2 (09:23→19:39)
[2020-05-08 14:00] VITALS: BP 97/66; PULSE 82; RESP 20; TEMP 36.2; O2SAT 91
--- NOTE | 2020-05-08 15:01 | PM.NPN ---
Subjective NPU Subjective: Interval history: Wendy presents today reporting she still struggling with withdrawal and she is clearly still diaphoretic and going through the process of fully withdrawing from the alcohol. She reports that she is doing fine as far as her mood but she is feeling really crappy. We once again reviewed our concerns about her discharging with her current plan to take care of some financial affairs. However she reports that she is committed to going to the inpatient treatment program on May 15 after she manages these issues. We discussed the fact that her 96-hour hold ends tomorrow and either she has to be discharged or she is to sign her self into the hospital voluntarily. Mental Status Exam MSE Comments: This is a morbidly obese white female in hospital scrubs with limited grooming and adequate eye contact, who is frankly diaphoretic during the interview. No abnormal movements except for psychomotor retardation. Cooperative with exam in mild distress. Speech was decreased rate and volume. Mood described as okay, affect subdued. Thought process organized. Thought content: Patient denied suicidal or homicidal ideation, there were no delusions reported or noted, she did report some auditory and visual hallucinations with her withdrawal. Attention and concentration appeared slightly improved and memory was unreliable but none were formally tested. She is alert and oriented x3. Insight and judgment are limited and impulse control is impaired, but improving. Vitals/I&O/Wt Last Vital Signs Temp 98.0 F 05/08/20 19:42 Pulse 89 05/08/20 19:42 Resp 17 05/08/20 19:42 BP 113/75 05/08/20 19:42 Pulse Ox 92 05/08/20 19:42 Weight last 48 hrs Weight 124.284 kg Data NPU : 05/06/20 15:08 05/06/20 15:08 A&P Additional A&P Information (1) Alcoholic intoxication: (2) Chronic alcohol abuse: (3) Pancytopenia: (4) Alcohol dependence with withdrawal: (5) Thrombocytopenia: (6) Hypokalemia: (7) Posttraumatic stress disorder: (8) Type 2 diabetes mellitus with hyperglycemia: (9) Alcohol use disorder: (10) Buprenorphine dependence: (11) Tobacco abuse: (12) Unspecified asthma, uncomplicated: (13) Major depressive disorder, recurrent: Additional A&P Information This is a 30-year-old white female with a long history of mental health diagnoses including depression and PTSD, significant active addiction most notably alcohol on agonist therapy for opiate addiction who presents intoxicated on a 96-hour hold. 1. Continue current medication. 2. Continue every 15 minute checks for safety. 3. Encourage individual, group and milieu therapies. 4. Encourage sober living treatment after discharge at the highest level of care to which he is willing to commit. 5. Continue CIWA protocol. Involuntary Hold Information 96 Hour Hold: 96 Hour Involuntary Admission: Yes 96 Hour Hold Ending Date: 04/11/21 96 Hour Hold Ending Time: 23:18 Attestations NPU Medical Necessity Statement*: Inpatient hospitalization is medically necessary and the clinically appropriate intervention at this time. We will monitor medications and make changes as indicated. Likely length of stay 1-2 days. Likely discharge tomorrow. Coding Level of Care Code Acute Welder Production Line Combination for Bartolo Lund
[2020-05-08 19:40] VITALS: PULSE 89; RESP 17; O2SAT 97
[2020-05-08 19:42] VITALS: BP 113/75; PULSE 70; PULSE 89; RESP 17; TEMP 36.7; O2SAT 92
[2020-05-08] MEDS: prazosin 1 mg Capsule PO (20:20)
[2020-05-08] MEDS: trazodone 150 mg Tablet PO (20:20)
[2020-05-09] VITALS (8 sets, daily range): BP systolic 97–130; BP diastolic 66–85; PULSE 72–97; RESP 16–18; TEMP 36.6–36.9; O2SAT 91–96
[2020-05-09] MEDS: cyanocobalamin 1,000 mcg Tablet 1000 MCG PO (07:50)
[2020-05-09] MEDS: metformin XR 500 MG Tablet 1000 MG PO (07:50)
[2020-05-09] MEDS: fluoxetine 20 mg Capsule PO (07:50)
[2020-05-09] MEDS: thiamine 100 mg Tablet PO (07:50)
[2020-05-09] MEDS: venlafaxine ER (24HR) 150 mg Capsule PO (07:50)
[2020-05-09] MEDS: amlodipine 10 mg Tablet PO (07:50)
[2020-05-09] MEDS: folic acid 1 mg Tablet PO (07:51)
[2020-05-09] MEDS: multivitamin therapeutic Tablet 1 TAB PO (07:51)
[2020-05-09] MEDS: ondansetron 4 MG Tablet PO (07:51)
[2020-05-09] MEDS: LORazepam 1 mg Tablet PO (07:51)
[2020-05-09] MEDS: albuterol 8 gm MDI 2 PUFF INHALATION ×3 (08:18→19:37)
--- NOTE | 2020-05-09 14:04 | P.PN_ITS ---
Subjective NPU Subjective: Interval history: Wendy presents today looking a little bit better and acknowledging that she was not ready to leave given the level withdrawal she was still having over the last 24 hours. She continues to report that she is going to go to inpatient treatment on May 15. But she does still need to leave for this tiny house. She did acknowledge that she needed a little more time prior to a safe discharge. She was using less Xanax, less diaphoretic and seeming a little more with it. She is starting to raise concerns about Warnicke syndrome as her communication seems to have dropped off dramatically since previous hospitalizations. Mental Status Exam MSE Comments: This is a morbidly obese white female in hospital scrubs with limited grooming and adequate eye contact, who is less diaphoretic during the interview. No abnormal movements except for psychomotor retardation. Cooperative with exam in no acute distress. Speech was decreased rate and volume, with mumbling/dysarthria. Mood described as a little better, affect subdued. Thought process organized. Thought content: Patient denied suicidal or homicidal ideation, there were no delusions reported or noted, she did report some auditory and visual hallucinations with her withdrawal. Attention and concentration appeared slightly improved and memory was unreliable but none were formally tested. She is alert and oriented x3. Insight and judgment are limited and impulse control is impaired, but improving. Vitals/I&O/Wt Last Vital Signs Temp 98.4 F 05/09/20 20:22 Pulse 83 05/09/20 20:22 Resp 17 05/09/20 20:22 BP 118/85 05/09/20 20:22 Pulse Ox 91 05/09/20 20:22 Data NPU : 05/06/20 15:08 05/06/20 15:08 A&P Additional A&P Information (1) Alcoholic intoxication: (2) Chronic alcohol abuse: (3) Pancytopenia: (4) Alcohol dependence with withdrawal: (5) Thrombocytopenia: (6) Hypokalemia: (7) Posttraumatic stress disorder: (8) Type 2 diabetes mellitus with hyperglycemia: (9) Alcohol use disorder: (10) Buprenorphine dependence: (11) Tobacco abuse: (12) Unspecified asthma, uncomplicated: (13) Major depressive disorder, recurrent: Additional A&P Information This is a 30-year-old white female with a long history of mental health diagnoses including depression and PTSD, significant active addiction most notably alcohol on agonist therapy for opiate addiction who presents intoxicated on a 96-hour hold. 1. Continue current medication. 2. Continue every 15 minute checks for safety. 3. Encourage individual, group and milieu therapies. 4. Encourage sober living treatment after discharge at the highest level of care to which he is willing to commit. 5. Continue CIWA protocol. Involuntary Hold Information 96 Hour Hold: 96 Hour Involuntary Admission: Yes 96 Hour Hold Ending Date: 04/11/21 96 Hour Hold Ending Time: 23:18 Attestations NPU Medical Necessity Statement*: Inpatient hospitalization is medically necessary and the clinically appropriate intervention at this time. We will monitor medications and make changes as indicated. Likely length of stay 1-2 days. Coding Level of Care Code Acute Strategic Alliances Manager for Bartolo Lund
[2020-05-09] MEDS: acetaminophen 325 mg Tablet 650 MG PO (19:21)
[2020-05-09] MEDS: trazodone 150 mg Tablet PO (20:33)
--- NOTE | 2020-05-10 01:56 | PC.NURSE ---
PM ASSESSMENT PT IS SLEEPY, ATE A SNACK, AND RETURNED TO BED. V/S ARE STABLE AT THIS TIME, LUNG SOUNDS ARE CLEAR BUT DIMINISHED, PT SKIN IS QUINTERO/ASHEN, UNDERNEATH THE EYE AREA IS RED AND PUFFY. PT DENIES PAIN, DENIES AH/VH, DENIES SI/HI. SHE SEEMS TO BE ANSWERING QUESTIONS WITHOUT INCLUDING RANDOMM STATEMENTS. SHE IS RESTING AT THIS TIME.
[2020-05-10 06:00] VITALS: BP 111/73; PULSE 61; RESP 17; TEMP 36.8; O2SAT 96
[2020-05-10] MEDS: thiamine 100 mg Tablet PO (07:33)
[2020-05-10] MEDS: multivitamin therapeutic Tablet 1 TAB PO (07:33)
[2020-05-10] MEDS: cyanocobalamin 1,000 mcg Tablet 1000 MCG PO (07:33)
[2020-05-10] MEDS: metformin XR 500 MG Tablet 1000 MG PO (07:33)
[2020-05-10] MEDS: venlafaxine ER (24HR) 150 mg Capsule PO (07:33)
[2020-05-10] MEDS: folic acid 1 mg Tablet PO (07:34)
[2020-05-10] MEDS: amlodipine 10 mg Tablet PO (07:34)
[2020-05-10] MEDS: fluoxetine 20 mg Capsule PO (07:34)
[2020-05-10 09:11] VITALS: PULSE 75; RESP 18; O2SAT 95
[2020-05-10] MEDS: albuterol 8 gm MDI 2 PUFF INHALATION (09:11)
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
[2020-05-10 12:17] VITALS: PULSE 75; RESP 18; O2SAT 95
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
== END 2020-05-10 13:17 | disposition home or self-care (01) | DRG 897 ==
LOC: ER 17:13 → NP 23:52
PROVIDERS: Physician Assistant; Admitting Provider Psychiatry & Neurology Psychiatry; Emergency Provider Physician Assistant; PCP Nurse Practitioner; Visit Provider Psychiatry & Neurology Psychiatry
DX: F10.229 Alcohol dependence with intoxication, unspecified (principal); F33.9 Major depressive disorder, recurrent, unspecified; D61.818 Other pancytopenia; Z68.42 Body mass index [BMI] 45.0-49.9, adult; F11.20 Opioid dependence, uncomplicated; F10.239 Alcohol dependence with withdrawal, unspecified; Y90.8 Blood alcohol level of 240 mg/100 ml or more; I10 Essential (primary) hypertension; M79.7 Fibromyalgia; F41.1 Generalized anxiety disorder; Z86.19 Personal history of other infectious and parasitic diseases; E04.1 Nontoxic single thyroid nodule; E28.2 Polycystic ovarian syndrome; F17.210 Nicotine dependence, cigarettes, uncomplicated; J45.909 Unspecified asthma, uncomplicated; D69.6 Thrombocytopenia, unspecified; E87.6 Hypokalemia; F43.12 Post-traumatic stress disorder, chronic; E11.65 Type 2 diabetes mellitus with hyperglycemia; Z79.84 Long term (current) use of oral hypoglycemic drugs; Z79.51 Long term (current) use of inhaled steroids; E66.01 Morbid (severe) obesity due to excess calories
CPT/HCPCS: 36415; 36416; 80053; 80306; 80307; 82962; 83036; 84703; 85025; 94640; 96361; 96374; 96376; 99285; J0573; J2060; J3411; J3490; J3535; J7030; Q0162

== ENCOUNTER 2020-07-09 13:46 | Inpatient (IN) | payer MEDICAID, SELFPAY ==
[2020-07-09] VITALS (13 sets, daily range): BP systolic 130–208; BP diastolic 68–128; PULSE 110–135; RESP 14–22; TEMP 36.6–37.3; O2SAT 90–97; BMI 44.6
--- NOTE | 2020-07-09 14:01 | XRR_ITS ---
PROCEDURE INFORMATION: Exam: XR Chest Exam date and time: 07/09/2020 2:11 PM Age: 30 years old Clinical indication: Chest pain; Additional info: Cough TECHNIQUE: Imaging protocol: XR of the chest. Views: 1 view. COMPARISON: CR XR chest 1V portable [id number] 04/01/2020 11:00 AM FINDINGS: Lungs: Unremarkable. No consolidation. Pleural spaces: Unremarkable. No pleural effusion. No pneumothorax. Heart/Mediastinum: Unremarkable. No cardiomegaly. Bones/joints: Unremarkable. XR/XR chest 1V portable [id number] IMPRESSION: No acute findings.
--- NOTE | 2020-07-09 14:07 | ECG_ITS ---
[facility] Test Date: 2020-07-09 Pat Name: Wendy De La Cruz Department: Room: Gender: Female Clerk Secretary: : 1990 Requested By: Gilles Garay Order Number: [id number] Frieda MD: VIANNEY DENSON Measurements Intervals [place] Rate: 101 P: 71 AL: 149 QRS: 20 QRSD: 85 T: 58 QT: 356 QTc: 463 Interpretive Statements SINUS TACHYCARDIA ABNORMAL RHYTHM ECG Compared to ECG 04/01/2020 11:08:11 Sinus rhythm no longer present Electronically Signed On 07-09-2020 22:23:11 CDT by VIANNEY DENSON [id number]
[2020-07-09] MEDS: haloperidol inj 5 mg/mL INJ 1 mL IM (14:35)
[2020-07-09 15:27] LABS: HCG Qualitative Urine. Negative (Negative)
[2020-07-09 15:35] LABS: Amphetamines Screen Urine Negative (Negative); Barbiturates Screen Urine Negative (Negative); Benzodiazepines Screen Urine Negative (Negative); Cocaine Screen Urine Negative (Negative); Opiate Screen Urine Negative (Negative); PCP Screen Urine Negative (Negative); THC Screen Urine Positive (Negative)
[2020-07-09 15:39] LABS: SARS Covid-2 Antigen Negative (Negative)
[2020-07-09 15:44] LABS: Glucose Urine UA Norm (Normal); Protein Urine 1+ (Negative); Urine Appearance Clear (CLEAR); Urine Color Dark Yellow (Yellow); pH Urine 6 (5-7)
[2020-07-09 15:45] LABS: Add Urine Microscopic? YES; Bilirubin Urine 1+ (Negative); Blood Urine Neg (Negative); Ketones Urine 2+ (Negative); Leukocyte Esterase Urine Negative (Negative); Nitrate Urine Negative (Negative); Urobilinogen Urine 4+ mg/dL (Negative)
[2020-07-09 15:46] LABS: Bacteria Urine 2+ /hpf; Mucus Urine 1+ /hpf; WBC Urine 0-4 /hpf (0-5)
[2020-07-09 15:47] LABS: Add Urine Culture? No
[2020-07-09 15:50] LABS: Basophils % 0.4 %; Eosinophils % 0.8 %; Hematocrit 45.8 % (37.0-47.0); Hemoglobin 15.2 g/dL (11.5-15.3); Lymphocytes # 1.7 10^3/uL (0.8-4.8); Mean Corpuscular HGB Conc 33.2 g/dL (30.0-36.0); Mean Corpuscular Hemoglobin 33.8 pg (28.0-34.0); Mean Corpuscular Volume 101.8 fL (81-99); Mean Platelet Volume 10.2 fL (7.4-10.4); Monocytes # 0.2 10^3/uL (0.2-0.9); Monocytes % 3.2 %; Neutrophils # 3.38 10^3/uL (1.8-7.7); Neutrophils % 63.4 %; Nucleated Red Blood Cells % 0 %; Platelet Count 109 10^3/cmm (130-400); Red Cell Distribution Width 15.1 % (12.1-15.1); White Blood Count 5.3 10^3/uL (4.0-10.0)
--- NOTE | 2020-07-09 16:07 | ECG_ITS ---
[facility] Test Date: 2020-07-09 Pat Name: Wendy De La Cruz Department: Room: Gender: Female Provider Scribe: : 1990 Requested By: Gilles Garay Order Number: [id number] Reading MD: VIANNEY DENSON Measurements Intervals [place] Rate: 106 P: 65 TN: 152 QRS: 31 QRSD: 80 T: 61 QT: 334 QTc: 444 Interpretive Statements SINUS TACHYCARDIA ABNORMAL RHYTHM ECG Compared to ECG 07/09/2020 15:20:54 No significant changes Electronically Signed On 07-09-2020 22:26:29 CDT by VIANNEY DENSON [id number]
[2020-07-09 16:17] LABS: Troponin(5th) Baseline 6 ng/L (0-10)
[2020-07-09 16:21] LABS: Lactate (Lactic Acid level) 3.6 mmol/L (0.5-2.2)
[2020-07-09 16:30] LABS: Alanine Aminotransferase 70 U/L (0-33); Albumin Level 3.6 g/dL (3.5-5.2); Alkaline Phosphatase 84 IU/L (35-105); Anion Gap 22.2 (5-19); Aspartate Amino Transferase 194 U/L (0-32); Blood Urea Nitrogen 5 mg/dL (6-20); Calcium 7.9 mg/dL (8.5-10.5); Carbon Dioxide 24 mmol/L (22-29); Chloride 99 mmol/L (98-107); Creatine Phosphokinase 61 U/L (26-192); Globulin 3.6 g/dL (1.3-4.6); Glomerular Filtration Rate 116.6 mL/min (90-130); Glucose 108 mg/dL (65-115); Lipase 93 U/L (13-60); Osmolality Calculated 292 mOsm/kg (285-295); Potassium 3.2 mmol/L (3.5-5.1); Sodium 142 mmol/L (136-145); Total Bilirubin 0.8 mg/dL (0.15-1.2); Total Protein 7.2 g/dL (6.6-8.7)
[2020-07-09 16:34] LABS: Alcohol Level 369 mg/dL (0-10)
[2020-07-09] MEDS: potassium chloride ER 20 mEq Tablet 40 MEQ PO (17:37)
[2020-07-09] MEDS: ziprasidone 20 mg/mL SDV 10 MG IM (17:37)
[2020-07-09] MEDS: LORazepam 2 mg/mL INJ 1 mL IM (17:37)
[2020-07-09] MEDS: ipratropium-albuterol 3 mL Neb INHALATION (18:20)
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
[2020-07-09 20:02] LABS: Lactate (Lactic Acid level) 3.5 mmol/L (0.5-2.2)
[2020-07-09] MEDS: levofloxacin-dextrose 5 % 750 MG/150 ML PREMIX 100 MG IV (20:05)
[2020-07-09] MEDS: LORazepam 2 mg/mL INJ 1 mL 1 MG IVP (20:58)
[2020-07-09] MEDS: sodium chloride 0.9% 1,000 ML 999 ML IV (20:59)
[2020-07-09 22:42] LABS: Glucose Point of Care 106 mg/dL (70-110)
[2020-07-10] VITALS (39 sets, daily range): BP systolic 97–189; BP diastolic 69–141; PULSE 70–144; RESP 14–31; TEMP 36.9–37.7; O2SAT 86–99
[2020-07-10] MEDS: LORazepam 2 mg/mL INJ 1 mL IVP ×2 (02:00→22:40)
[2020-07-10 06:52] LABS: Basophils % 0.5 %; Eosinophils # 0.1 10^3/uL (0.0-0.8); Eosinophils % 1.2 %; Hematocrit 39.7 % (37.0-47.0); Hemoglobin 13.2 g/dL (11.5-15.3); Lymphocytes # 1.1 10^3/uL (0.8-4.8); Lymphocytes % 27.4 %; Mean Corpuscular HGB Conc 33.2 g/dL (30.0-36.0); Mean Corpuscular Hemoglobin 34.5 pg (28.0-34.0); Mean Corpuscular Volume 103.7 fL (81-99); Mean Platelet Volume 10.5 fL (7.4-10.4); Monocytes # 0.2 10^3/uL (0.2-0.9); Monocytes % 4.6 %; Neutrophils # 2.71 10^3/uL (1.8-7.7); Neutrophils % 65.8 %; Nucleated Red Blood Cells % 0 %; Platelet Count 78 10^3/cmm (130-400); Red Blood Count 3.83 10^6/uL (4.1-5.3); Red Cell Distribution Width 15.2 % (12.1-15.1); White Blood Count 4.1 10^3/uL (4.0-10.0)
[2020-07-10 07:15] LABS: Alanine Aminotransferase 65 U/L (0-33); Albumin Level 3.4 g/dL (3.5-5.2); Alkaline Phosphatase 75 IU/L (35-105); Aspartate Amino Transferase 148 U/L (0-32); Blood Urea Nitrogen 5 mg/dL (6-20); Calcium 8.5 mg/dL (8.5-10.5); Carbon Dioxide 30 mmol/L (22-29); Chloride 101 mmol/L (98-107); Glomerular Filtration Rate 97.6 mL/min (90-130); Glucose 97 mg/dL (65-115); Osmolality Calculated 287 mOsm/kg (285-295); Sodium 140 mmol/L (136-145); Total Bilirubin 1.6 mg/dL (0.15-1.2); Total Protein 6.4 g/dL (6.6-8.7)
[2020-07-10] MEDS: thiamine 100 mg Tablet PO (07:45)
[2020-07-10] MEDS: multivitamin therapeutic Tablet 1 TAB PO (07:45)
[2020-07-10] MEDS: folic acid 1 mg Tablet PO (07:45)
--- NOTE | 2020-07-10 08:24 | PC.NURSE ---
O2 sats consistently 86-87%, even after pt coughing and cearing throat. Nasal cannula at 2lpm/NC applied.
[2020-07-10 09:02] LABS: Hepatitis A Antibody IgM Non-Reactive (Nonreactive); Hepatitis B Core IgM Non-Reactive (Nonreactive); Hepatitis B Surface Antigen Non-Reactive (Nonreactive); Hepatitis C Virus Antibody Reactive (Nonreactive)
[2020-07-10 09:04] LABS: Thyroid Stimulating Hormone 1.18 uIU/mL (0.27-4.20)
[2020-07-10] MEDS: venlafaxine ER (24HR) 150 mg Capsule PO (09:11)
[2020-07-10] MEDS: fluoxetine 20 mg Capsule PO (09:11)
[2020-07-10] MEDS: nicotine 21 mg Patch 1 PATCH TRANSDERMA (09:11)
[2020-07-10] MEDS: piperacillin-tazobactam 3.375 GM in sodium chloride 0.9% (plus) 50 ML IV ×2 (09:11→16:42)
[2020-07-10 09:14] LABS: HIV 1 & 2 Antibody Non-Reactive (Non-Reactiv); HIV 1 & 2 Antigen Non-Reactive (Non-Reactiv)
[2020-07-10 09:24] LABS: Estmated Average Glucose 82; Hemoglobin A1C 4.5 % (4.0-6.0)
[2020-07-10 09:29] LABS: Procalcitonin 0.21 ng/mL (0-0.5)
[2020-07-10 11:26] LABS: Glucose Point of Care 101 mg/dL (70-110)
[2020-07-10] MEDS: LORazepam 2 mg/mL INJ 1 mL 0.5 MG IVP (13:59)
--- NOTE | 2020-07-10 14:07 | PC.NURSE ---
Pt woke up stated she was anxious, sweating noted. Ativan 0.5 mg IV administered for anxiety, see MAR.
--- NOTE | 2020-07-10 14:39 | PM.PN ---
Subjective Subjective: Interval history: Patient was examined this morning, she is alert to person,, to place, not to time, she follows commands, is still drowsy, she tells me that last drink was sometime yesterday, she drank vodka, is not exactly clear on the time and how much she drank, denies any other drug use, currently denies any homicidal ideation, denies any suicidal ideations, denies seeing or hearing things that are not there, denies any tremors, denies any headaches, denies any diaphoresis, denies any anxiety Vitals/I&O/Wt Last Vital Signs Temp 98.4 F 07/10/20 12:20 Pulse 94 07/10/20 14:20 Resp 18 07/10/20 12:20 BP 147/90 07/10/20 12:20 Pulse Ox 96 07/10/20 12:20 07/09/20 07/10/20 07/10/20 22:59 06:59 14:59 Intake Total 1150 / 1150 450 / 450 Output Total 201 / 201 Balance 1150 / 1150 249 / 249 Weight last 48 hrs Weight 117.934 kg Physical Exam Const: COMMON NORMALS: no acute distress ORIENTATION/CONSCIOUSNESS: Yes awake, Yes oriented to person and Yes oriented to place; not oriented to time Neck/C-Spine: COMMON NORMALS: no JVD Resp: COMMON NORMALS: normal respiratory effort, No retractions, No use of accessory muscles and clear to auscultation bilaterally AUSCULTATION: clear to auscultation bilaterally Cardio: COMMON NORMALS: no JVD, regular rate, regular rhythm, S1 normal heart sound present and S2 normal heart sound present RATE: regular rate RHYTHM: regular rhythm HEART SOUNDS: S1 normal heart sound present and S2 normal heart sound present GI: COMMON NORMALS: Normal to inspection, nondistended, normoactive bowel sounds present, Soft to palpation and non-tender PALPATION: Yes Soft to palpation Extremity: COMMON NORMALS: no pedal edema Neuro: SENSORIUM/ORIENTATION: Yes oriented to person, Yes oriented to place and No oriented to time Data : 07/10/20 06:31 07/10/20 06:31 A&P Assessment and plan (1) Suicidal ideation: -Currently on a 96-hour hold -Denies any active suicidal homicidal ideation Status: Acute (2) Alcohol dependence with withdrawal: -Last drink was of vodka sometime yesterday -CIWA protocol, CIWA scoring, monitor mentation -Gentle IV hydration at 75 cc an hour -Thiamine, folic acid -Zosyn for aspiration pneumonia -Currently Suboxone is on hold Status: Acute (3) Type 2 diabetes mellitus with hyperglycemia: -A1c was under 6.5, monitor blood sugars Status: Acute (4) Essential (primary) hypertension: -Elevated blood pressures likely secondary to alcohol withdrawal, continue to monitor Status: Acute (5) Hepatitis C antibody positive in blood: -Will need to follow-up with GI as outpatient -Order liver ultrasound Status: Chronic (6) Thrombocytopenia: -Likely secondary to hepatitis C, and chronic alcoholism Status: Acute (7) Transaminitis: -Likely secondary to hepatitis C, chronic alcoholism Status: Acute Additional A&P Information Full code SCDs for DVT prophylaxis, Lovenox contraindicated given history of alcoholism, risk of bleeding, thrombocytopenia Plan for today, monitor mentation, CIWA protocol, monitor blood pressures, right upper quadrant ultrasound ordered Attestations Medical Necessity Statement*: Patient requires hospitalization for alcohol withdrawal, suicidal ideation Time Spent in Patient Care: Greater than 35 minutes (>than 50% of time spent in counselling and/or direct pt care on unit). Critical Care Time: Critical Care Time (min): 25 Coding Level of Care Code Acute Healthcare Associate for Bartolo Lund Diagnoses Suicidal ideation R45.851 Alcohol dependence with withdrawal F10.239 Type 2 diabetes mellitus with hyperglycemia E11.65 Essential (primary) hypertension I10 Hepatitis C antibody positive in blood R76.8 Thrombocytopenia D69.6 Transaminitis R74.01
--- NOTE | 2020-07-10 15:00 | PC.NURSE ---
t's B/P remains elevated today. Notified Dr Peres again. Orders received.
[2020-07-10] MEDS: lisinopril 5 mg Tablet PO (15:15)
[2020-07-10] MEDS: cloNIDine 0.1 mg Tablet PO ×2 (15:15→20:00)
[2020-07-10] MEDS: sodium chloride 0.9% 1,000 ML 75 ML IV (15:16)
--- NOTE | 2020-07-10 18:47 | PC.RESP ---
SMOKING CESSATION INFORMATION SENT TO PATIENT.
--- NOTE | 2020-07-10 18:51 | PC.NURSE ---
Shift summary: Pt rested in bed with trips to the BSC. Highest CIWA score this shift was 8. Pt would answer the questions, then hour and half later ask for ativan for her nerves and I just want to go to sleep. Pt has had frequent loose productive coughing, she spits the phelgm out where ever, a tub and tissues provided, which she is now using. HEr O2 sats were low, she was stated on nasal cannnula at 2lpm. Hypertension has improved at end of day shift , she was started on B/P med. Iv fluids, Zosyn and antidepressants started today. She is on suicide precautions and had 1:1 sitter throughout this shift.
[2020-07-10] MEDS: trazodone 150 mg Tablet PO (20:00)
[2020-07-10 21:38] LABS: Glucose Point of Care 101 mg/dL (70-110)
[2020-07-11] VITALS (22 sets, daily range): BP systolic 103–164; BP diastolic 76–118; PULSE 77–96; RESP 15–28; TEMP 36.4–36.9; O2SAT 92–99
[2020-07-11] MEDS: piperacillin-tazobactam 3.375 GM in sodium chloride 0.9% (plus) 50 ML IV ×3 (00:04→17:30)
[2020-07-11] MEDS: LORazepam 2 mg/mL INJ 1 mL IVP ×2 (01:20→05:01)
[2020-07-11 03:48] LABS: Magnesium 1.3 mg/dL (1.7-2.3); Phosphorus 1.1 mg/dL (2.5-4.5)
[2020-07-11] MEDS: sodium chloride 0.9% 1,000 ML 75 ML IV (04:20)
[2020-07-11] MEDS: albuterol 8 gm MDI 2 PUFF INHALATION ×2 (07:50→14:22)
[2020-07-11 07:53] LABS: Glucose Point of Care 112 mg/dL (70-110)
[2020-07-11] MEDS: lisinopril 5 mg Tablet PO (08:04)
[2020-07-11] MEDS: fluoxetine 20 mg Capsule PO (08:04)
[2020-07-11] MEDS: venlafaxine ER (24HR) 150 mg Capsule PO (08:04)
[2020-07-11] MEDS: nicotine 21 mg Patch 1 PATCH TRANSDERMA (08:04)
[2020-07-11] MEDS: cloNIDine 0.1 mg Tablet PO ×3 (08:05→20:17)
[2020-07-11] MEDS: thiamine 100 mg Tablet PO (08:06)
[2020-07-11] MEDS: multivitamin therapeutic Tablet 1 TAB PO (08:06)
[2020-07-11] MEDS: LORazepam 2 mg Tablet PO (08:06)
[2020-07-11] MEDS: folic acid 1 mg Tablet PO (08:06)
[2020-07-11] MEDS: phosphorus 250 mg Tablet PO ×2 (08:34→17:30)
[2020-07-11] MEDS: magnesium sulfate premix 4 GM/100 ML PREMIX IV (08:40)
--- NOTE | 2020-07-11 08:50 | PC.NURSE ---
Pt lying in bed with her eyes closed, muttering and mumbling.
[2020-07-11 09:12] LABS: Basophils % 0.7 %; Eosinophils # 0.1 10^3/uL (0.0-0.8); Hematocrit 41.7 % (37.0-47.0); Hemoglobin 13.4 g/dL (11.5-15.3); Lymphocytes % 32.7 %; Mean Corpuscular HGB Conc 32.1 g/dL (30.0-36.0); Mean Corpuscular Hemoglobin 33.9 pg (28.0-34.0); Mean Corpuscular Volume 105.6 fL (81-99); Monocytes # 0.1 10^3/uL (0.2-0.9); Monocytes % 4.7 %; Neutrophils # 1.74 10^3/uL (1.8-7.7); Neutrophils % 58.6 %; Nucleated Red Blood Cells % 0 %; Platelet Count 66 10^3/cmm (130-400); Red Blood Count 3.95 10^6/uL (4.1-5.3); Red Cell Distribution Width 14.6 % (12.1-15.1)
--- NOTE | 2020-07-11 09:20 | PC.NURSE ---
Pt up to BSC numerous times this am, She is restless, sits up in bed then lies down, then back up again, she gets out of bed with blankets wrapped around her legs. SCD released due to her lack of following safety instructions.
[2020-07-11 09:22] LABS: Alanine Aminotransferase 49 U/L (0-33); Albumin Level 3.3 g/dL (3.5-5.2); Alkaline Phosphatase 61 IU/L (35-105); Anion Gap 12.5 (5-19); Aspartate Amino Transferase 86 U/L (0-32); Blood Urea Nitrogen 4 mg/dL (6-20); Calcium 8.5 mg/dL (8.5-10.5); Carbon Dioxide 29 mmol/L (22-29); Chloride 101 mmol/L (98-107); Globulin 2.9 g/dL (1.3-4.6); Glomerular Filtration Rate 116.6 mL/min (90-130); Glucose 106 mg/dL (65-115); Osmolality Calculated 285 mOsm/kg (285-295); Potassium 3.5 mmol/L (3.5-5.1); Sodium 139 mmol/L (136-145); Total Bilirubin 1.1 mg/dL (0.15-1.2); Total Protein 6.2 g/dL (6.6-8.7)
[2020-07-11 11:23] LABS: Glucose Point of Care 98 mg/dL (70-110)
--- NOTE | 2020-07-11 11:26 | PM.PN ---
Subjective Subjective: Interval history: Patient was examined this morning, she tells me that she did not get any sleep overnight, her night was restless, she really wants a sleeping aid but does not want Zyprexa, wants Geodon, she tells me it works well, currently denies feeling anxious, no nausea, no vomiting, no abdominal pain, does have a fine tremor, denies seeing or hearing things are not there, denies diaphoresis, denies chest pain, denies palpitations, she is worried about her liver ultrasound results Vitals/I&O/Wt Last Vital Signs Temp 98.4 F 07/11/20 07:19 Pulse 84 07/11/20 09:58 Resp 15 07/11/20 09:58 BP 103/76 07/11/20 09:58 Pulse Ox 94 07/11/20 09:58 07/10/20 07/11/20 07/11/20 22:59 06:59 14:59 Intake Total 590 / 1040 1030 / 2070 1000 / 1000 Output Total 1470 / 1470 Balance 589 / 838 1030 / 1868 -470 / -470 Weight last 48 hrs Weight 117.934 kg Physical Exam Const: COMMON NORMALS: no acute distress GENERAL APPEARANCE: cooperative NUTRITIONAL APPEARANCE: obese ORIENTATION/CONSCIOUSNESS: Yes awake, Yes oriented to person, Yes oriented to place and Yes oriented to time Neck/C-Spine: COMMON NORMALS: no JVD Resp: COMMON NORMALS: normal respiratory effort, No retractions, No use of accessory muscles and clear to auscultation bilaterally AUSCULTATION: clear to auscultation bilaterally Cardio: COMMON NORMALS: no JVD, regular rate, regular rhythm, S1 normal heart sound present and S2 normal heart sound present RATE: regular rate RHYTHM: regular rhythm HEART SOUNDS: S1 normal heart sound present and S2 normal heart sound present GI: COMMON NORMALS: Normal to inspection, nondistended, normoactive bowel sounds present, Soft to palpation and non-tender PALPATION: Yes Soft to palpation Extremity: COMMON NORMALS: no pedal edema Neuro: SENSORIUM/ORIENTATION: Yes oriented to person, Yes oriented to place and Yes oriented to time OTHER: CIWA score 10 Data : 07/11/20 02:30 07/11/20 02:30 A&P Assessment and plan (1) Suicidal ideation: -Currently on a 96-hour hold -Denies any active suicidal homicidal ideation Status: Acute (2) Alcohol dependence with withdrawal: -Last drink was of vodka sometime yesterday -CIWA score as high as 10 overnight -CIWA protocol, CIWA scoring, monitor mentation -We will stop IV hydration -Thiamine, folic acid -Zosyn for aspiration pneumonia -Currently Suboxone is on hold Status: Acute (3) Type 2 diabetes mellitus with hyperglycemia: -A1c was under 6.5, monitor blood sugars Status: Acute (4) Essential (primary) hypertension: -Elevated blood pressures likely secondary to alcohol withdrawal, continue to monitor Status: Acute (5) Hepatitis C antibody positive in blood: -Will need to follow-up with GI as outpatient -Liver ultrasound shows hepatomegaly with diffuse fatty infiltration Status: Chronic (6) Thrombocytopenia: -Likely secondary to hepatitis C, and chronic alcoholism Status: Acute (7) Transaminitis: -Likely secondary to hepatitis C, chronic alcoholism Status: Acute Additional A&P Information Hypomagnesemia, IV replacement Hypophosphatemia, IV replacement Lymphopenia, afebrile, likely second to aspiration pneumonia, continue to monitor Temazepam to be started tonight to help her fall asleep Full code SCDs for DVT prophylaxis, Lovenox contraindicated given history of alcoholism, risk of bleeding, thrombocytopenia Plan for today, monitor mentation, CIWA protocol, monitor blood pressures, replace electrolytes, monitor for fevers Attestations Medical Necessity Statement*: Patient requires hospitalization for suicidal ideation, alcohol withdrawal, hypomagnesemia, hypophosphatemia Critical care time spent over 35 minutes Coding Level of Care Code Acute 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
--- NOTE | 2020-07-11 13:04 | US_ITS ---
WS: [id number] ULTRASOUND ABDOMEN LIMITED CLINICAL INFORMATION: hep c with transaminits COMPARISON: None. FINDINGS: Liver Size: Enlarged Craniocaudal length: 22.1 cm. Echogenicity: Coarse Surface nodularity: None. Mass (size and location): None. Bile ducts Intrahepatic ducts: Normal. Common bile duct diameter: 0.4 cm. Gallbladder Cholecystectomy Pancreas Normal as visualized. Right kidney: Normal. Hydronephrosis: None. Size: 12.5 cm x 4.4 cm x 4.5 cm. Abdominal aorta and IVC Visualized portions are normal. Ascites: None. US/US liver [id number] IMPRESSION: 1. Hepatomegaly with diffuse fatty infiltration. 2. Cholecystectomy. 3. No hydronephrosis in right kidney. 4. Normal common bile duct.
--- NOTE | 2020-07-11 17:40 | PC.NURSE ---
Pt stated she was going to leave. Discussed 96 hour hold and the ramifications of leaving against court orders. NOted allery, fall risk and elopement bracelets have been torn off, laying in floor. Pt asked for Ativan, wanted the CIWA done now, informed pt that Ativan can only be given as ordered not just because she asks for it, he CIWA is due at 1999. Pt then states will you call the Dr and tell him I am having a temper tantrum and see if I can get some meds? Informed pt she is free to have a temper tantrum but it will not be bringing her what she wants, The physician evaluates you and makes decisions on care based upon that, not just because you demand medications. Dr Peres, then on unit, informed of this occurrence.
[2020-07-11 17:46] LABS: Glucose Point of Care 113 mg/dL (70-110)
--- NOTE | 2020-07-11 18:04 | PC.NURSE ---
Shift summary: Pt rested in bed, up and down to BSC. Pt did not follow safety instructions at beginning of shift. She asks for Ativan, and night time medications to help her sleep, but she wants them now. She was weaned of 02 today, sats 93% or better. Lung sounds improved, her coughing has lessened this afternoon. afebrile, improved B/Ps today. Pt insisted she was going home this evening, Dr Peres spoke with her, evaluate her tomorrow as decide if she is ready to go home. Her Highest CIWA was this morning, a 10, thena 9 and 6. Her eyes are clearer,her speech is clearer when she is awake. When she is dozing speech still slrred, she stated she just does that. Her urine was dark yellow, timothy yesterday now clear. She has been to to the BSC about every half hour, urinating 100-150m at a time. She received Phosphorus and magnesium replacement IV, Phosphorus PO also. Iv fluids discontinued.
[2020-07-11] MEDS: LORazepam 2 mg/mL INJ 1 mL 0.5 MG IVP (20:17)
[2020-07-11] MEDS: trazodone 150 mg Tablet PO (20:17)
[2020-07-11 21:23] LABS: Glucose Point of Care 109 mg/dL (70-110)
[2020-07-12] VITALS (13 sets, daily range): BP systolic 135–155; BP diastolic 96–117; PULSE 70–95; RESP 16–19; TEMP 36.4–37; O2SAT 95–100
[2020-07-12] MEDS: piperacillin-tazobactam 3.375 GM in sodium chloride 0.9% (plus) 50 ML IV ×2 (00:50→10:00)
[2020-07-12] MEDS: LORazepam 2 mg/mL INJ 1 mL IVP (03:02)
[2020-07-12 04:32] LABS: Basophils % 0.5 %; Eosinophils # 0.2 10^3/uL (0.0-0.8); Eosinophils % 4.3 %; Hematocrit 41.7 % (37.0-47.0); Lymphocytes # 1.5 10^3/uL (0.8-4.8); Lymphocytes % 38.3 %; Mean Corpuscular HGB Conc 33.6 g/dL (30.0-36.0); Mean Corpuscular Volume 101.2 fL (81-99); Mean Platelet Volume 11.6 fL (7.4-10.4); Monocytes # 0.2 10^3/uL (0.2-0.9); Monocytes % 5.8 %; Neutrophils # 2.03 10^3/uL (1.8-7.7); Neutrophils % 50.6 %; Nucleated Red Blood Cells % 0 %; Platelet Count 82 10^3/cmm (130-400); Red Blood Count 4.12 10^6/uL (4.1-5.3); Red Cell Distribution Width 14.4 % (12.1-15.1)
[2020-07-12 04:57] LABS: Magnesium 1.6 mg/dL (1.7-2.3); Phosphorus 3.8 mg/dL (2.5-4.5)
[2020-07-12 05:01] LABS: Alanine Aminotransferase 65 U/L (0-33); Albumin Level 3.7 g/dL (3.5-5.2); Alkaline Phosphatase 64 IU/L (35-105); Anion Gap 13.1 (5-19); Aspartate Amino Transferase 130 U/L (0-32); Blood Urea Nitrogen 6 mg/dL (6-20); Calcium 8.9 mg/dL (8.5-10.5); Carbon Dioxide 29 mmol/L (22-29); Chloride 101 mmol/L (98-107); Globulin 2.9 g/dL (1.3-4.6); Glomerular Filtration Rate 116.6 mL/min (90-130); Glucose 92 mg/dL (65-115); Osmolality Calculated 285 mOsm/kg (285-295); Potassium 4.1 mmol/L (3.5-5.1); Sodium 139 mmol/L (136-145); Total Bilirubin 0.8 mg/dL (0.15-1.2); Total Protein 6.6 g/dL (6.6-8.7)
[2020-07-12 07:53] LABS: Glucose Point of Care 92 mg/dL (70-110)
[2020-07-12] MEDS: folic acid 1 mg Tablet PO (08:08)
[2020-07-12] MEDS: chlordiazePOXIDE 25 mg Capsule PO ×3 (08:08→21:10)
[2020-07-12] MEDS: fluoxetine 20 mg Capsule PO (08:08)
[2020-07-12] MEDS: phosphorus 250 mg Tablet PO ×2 (08:08→17:20)
[2020-07-12] MEDS: thiamine 100 mg Tablet PO (08:08)
[2020-07-12] MEDS: lisinopril 5 mg Tablet PO (08:08)
[2020-07-12] MEDS: multivitamin therapeutic Tablet 1 TAB PO (08:08)
[2020-07-12] MEDS: venlafaxine ER (24HR) 150 mg Capsule PO (08:08)
[2020-07-12] MEDS: cloNIDine 0.1 mg Tablet PO ×3 (08:08→21:09)
[2020-07-12] MEDS: albuterol 8 gm MDI 2 PUFF INHALATION (09:11)
[2020-07-12 11:14] LABS: Glucose Point of Care 99 mg/dL (70-110)
--- NOTE | 2020-07-12 11:26 | P.PN_ITS ---
Subjective Subjective: Interval history: Overnight patient CIWA score was high as high as 10, requiring Ativan, since then her CIWA scores have been minimal, no Ativan required, she is alert oriented x3 this morning, denies any suicidal homicidal ideation, is really wanted to go home, she really does not want to go to the knee MPU, no abdominal pain, no nausea, no vomiting, she had some sleep o vernight Vitals/I&O/Wt Last Vital Signs Temp 97.6 F 07/12/20 05:21 Pulse 95 07/12/20 09:13 Resp 18 07/12/20 09:11 BP 155/110 07/12/20 08:08 Pulse Ox 95 07/12/20 09:11 07/11/20 07/12/20 07/12/20 22:59 06:59 14:59 Intake Total 519.0909 / 2564.0909 50 / 2614.0909 350 / 350 Output Total 800 / 2820 1600 / 4420 Balance -280.9091 / -255.9091 -1550 / -1805.9091 350 / 350 Physical Exam Const: COMMON NORMALS: no acute distress and patient oriented x3 HENMT: COMMON NORMALS: normocephalic HEAD & SCALP: normocephalic Neck/C-Spine: COMMON NORMALS: no JVD Resp: COMMON NORMALS: normal respiratory effort, No retractions, No use of accessory muscles and clear to auscultation bilaterally AUSCULTATION: clear to auscultation bilaterally Cardio: COMMON NORMALS: no JVD, regular rate, regular rhythm, S1 normal heart sound present and S2 normal heart sound present RATE: regular rate RHYTHM: regular rhythm HEART SOUNDS: S1 normal heart sound present and S2 normal heart sound present GI: COMMON NORMALS: Normal to inspection, nondistended, normoactive bowel sounds present, Soft to palpation, non-tender and No hepatosplenomegaly present PALPATION: Yes Soft to palpation and Yes No hepatosplenomegaly present Extremity: COMMON NORMALS: capillary refill normal, no clubbing, cyanosis or edema, no calf tenderness and no pedal edema Neuro: COMMON NORMALS: patient oriented x3 Psych: COMMON NORMALS: mental status grossly normal Data : 07/12/20 04:18 07/12/20 04:18 A&P Assessment and plan (1) Suicidal ideation: -Currently on a 96-hour hold -Denies any active suicidal homicidal ideation Status: Acute (2) Alcohol dependence with withdrawal: -Last drink was of vodka sometime Friday -CIWA score as high as 10 overnight -CIWA protocol, CIWA scoring, monitor mentation -We will switch to Librium scheduled 25 every 6 hours -Thiamine, folic acid -Switch to p.o. Augmentin -Currently Suboxone is on hold Status: Acute (3) Type 2 diabetes mellitus with hyperglycemia: -A1c was under 6.5, monitor blood sugars Status: Acute (4) Essential (primary) hypertension: -Elevated blood pressures likely secondary to alcohol withdrawal, continue to monitor Status: Acute (5) Hepatitis C antibody positive in blood: -Will need to follow-up with GI as outpatient -Liver ultrasound shows hepatomegaly with diffuse fatty infiltration Status: Chronic (6) Thrombocytopenia: -Likely secondary to hepatitis C, and chronic alcoholism Status: Acute (7) Transaminitis: -Likely secondary to hepatitis C, chronic alcoholism Status: Acute Additional A&P Information Hypomagnesemia, IV replacement Hypophosphatemia, IV replacement Lymphopenia, afebrile, likely second to aspiration pneumonia, resolved, continue to monitor Temazepam to be started tonight to help her fall asleep Full code SCDs for DVT prophylaxis, Lovenox contraindicated given history of alcoholism, risk of bleeding, thrombocytopenia Plan for today, monitor mentation, CIWA protocol, monitor blood pressures, replace electrolytes, monitor for fevers, scheduled Librium, hopefully can move to n.p.o. 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
--- NOTE | 2020-07-12 11:49 | PC.CHAP ---
Pastoral Care Encounter/Spiritual Assessment Type of Contact [x] Declined book agent visit [] Patient/Family/Request visit [] Outpatient visit [] Follow-up visit [] Physician referral [] Code/Alert [] Routine visit [] Staff referral [] Actively dying [] Patient sleeping [] Family support [] [] Out of room [] Palliative care [] [] Receiving care in room [] Pre-surgical visit [] Trauma [] Long length of stay [x] ICU visit [] Other: Relational/Emotional Strength [] Patient feels connected with others/family/visitors/staff [] Distress [] Loneliness/isolation [] Abandonment Spirituality of Patient [] Person of Elsa [] Attends [employer] of their [place] [] Believes in Prayer [] Reads Bible or Mormon materials [] There are Spiritual issues to be addressed [employer] Interventions [] Prayer [] Active listening [] Non-anxious presence [] Spiritual/emotional support [] Crisis/trauma care [] Spiritual counseling [] Bereavement support [] Provided bereavement packet [] Provided Bible/devotional materials [] Provided toy/stuffed animal, coloring book to patient or family member [] Provided Communion [] Anointing/[place] [] Salvation [] Completed spiritual assessment [] Other: Impact on Illness or Injury [] Angry [] Fearful [] Anxious [] Often cries [] Exhaustion [] Unable to work [] Unable to attend scientology [] Unable to walk/stand [] Unable to read [] Unable to drive [] Unable to eat/drink [] Unable to sleep [] Unable to be with family [] Patient intubated [] Other: Summary Pt had expressed to nursing staff she would like to visit with [employer]. Upon my arrival she seemed surprised and stated she had asked to see a book agent but not today, maybe tomorrow . She said she did not expect a book agent to visit so soon. I told her I would leave a note for a book agent to visit tomorrow. Time spent with patient 2m
[2020-07-12] MEDS: amoxicillin-clav 875-125 mg Tablet 1 TAB PO (17:20)
[2020-07-12] MEDS: trazodone 150 mg Tablet PO (20:29)
[2020-07-12] MEDS: temazepam 15 mg Capsule PO (21:09)
[2020-07-13] VITALS (7 sets, daily range): BP systolic 118–143; BP diastolic 82–106; PULSE 76–89; RESP 16–18; TEMP 36.4–36.8; O2SAT 97–98
[2020-07-13] MEDS: chlordiazePOXIDE 25 mg Capsule PO ×3 (01:39→13:08)
[2020-07-13 05:27] LABS: Basophils % 0.8 %; Eosinophils # 0.2 10^3/uL (0.0-0.8); Eosinophils % 4.6 %; Hematocrit 40.7 % (37.0-47.0); Hemoglobin 13.7 g/dL (11.5-15.3); Lymphocytes # 1.3 10^3/uL (0.8-4.8); Lymphocytes % 33.8 %; Mean Corpuscular HGB Conc 33.7 g/dL (30.0-36.0); Mean Corpuscular Hemoglobin 33.6 pg (28.0-34.0); Mean Corpuscular Volume 99.8 fL (81-99); Mean Platelet Volume 12.8 fL (7.4-10.4); Monocytes # 0.3 10^3/uL (0.2-0.9); Monocytes % 7.7 %; Neutrophils # 2.03 10^3/uL (1.8-7.7); Neutrophils % 52.3 %; Nucleated Red Blood Cells % 0 %; Platelet Count 31 10^3/cmm (130-400); Red Blood Count 4.08 10^6/uL (4.1-5.3); Red Cell Distribution Width 14.6 % (12.1-15.1); White Blood Count 3.9 10^3/uL (4.0-10.0)
[2020-07-13 05:45] LABS: Alanine Aminotransferase 97 U/L (0-33); Albumin Level 3.5 g/dL (3.5-5.2); Alkaline Phosphatase 61 IU/L (35-105); Blood Urea Nitrogen 5 mg/dL (6-20); Calcium 8.7 mg/dL (8.5-10.5); Carbon Dioxide 28 mmol/L (22-29); Chloride 100 mmol/L (98-107); Globulin 3.2 g/dL (1.3-4.6); Glomerular Filtration Rate 116.6 mL/min (90-130); Glucose 101 mg/dL (65-115); Magnesium 1.6 mg/dL (1.7-2.3); Osmolality Calculated 283 mOsm/kg (285-295); Phosphorus 5.1 mg/dL (2.5-4.5); Sodium 138 mmol/L (136-145); Total Bilirubin 0.6 mg/dL (0.15-1.2); Total Protein 6.7 g/dL (6.6-8.7)
[2020-07-13 05:47] LABS: Anion Gap 13.6 (5-19); Aspartate Amino Transferase 165 U/L (0-32); Potassium 3.6 mmol/L (3.5-5.1)
[2020-07-13] MEDS: cloNIDine 0.1 mg Tablet PO ×2 (08:02→14:10)
[2020-07-13] MEDS: phosphorus 250 mg Tablet PO (08:02)
[2020-07-13] MEDS: amoxicillin-clav 875-125 mg Tablet 1 TAB PO ×2 (08:02→17:23)
[2020-07-13] MEDS: thiamine 100 mg Tablet PO (08:02)
[2020-07-13] MEDS: folic acid 1 mg Tablet PO (08:02)
[2020-07-13] MEDS: venlafaxine ER (24HR) 150 mg Capsule PO (08:02)
[2020-07-13] MEDS: fluoxetine 20 mg Capsule PO (08:02)
[2020-07-13] MEDS: lisinopril 5 mg Tablet PO (08:02)
[2020-07-13] MEDS: multivitamin therapeutic Tablet 1 TAB PO (08:02)
[2020-07-13] MEDS: FUROsemide 10 mg/mL SDV 2mL 20 MG IVP (08:22)
[2020-07-13 12:02] LABS: Glucose Point of Care 104 mg/dL (70-110)
--- NOTE | 2020-07-13 12:35 | P.PN_ITS ---
Subjective Subjective: Interval history: Patient was seen this morning, she is alert and oriented x3, follows all commands, no withdrawals overnight, denies suicidal homicidal ideation, really wants to go home, discussed with patient that we will have psychiatry's service see her, I spoke to Dr. Reed, he will see patient, possibly could be till tomorrow Vitals/I&O/Wt Last Vital Signs Temp 98.2 F 07/13/20 08:35 Pulse 86 07/13/20 12:20 Resp 18 07/13/20 12:20 BP 125/87 07/13/20 12:20 Pulse Ox 98 07/13/20 12:20 07/12/20 07/13/20 07/13/20 22:59 06:59 14:59 Intake Total 700 / 1250 880 / 880 Output Total 1400 / 1400 Balance 700 / 1250 -1400 / -150 880 / 880 Physical Exam Const: COMMON NORMALS: no acute distress and patient oriented x3 HENMT: COMMON NORMALS: normocephalic HEAD & SCALP: normocephalic Neck/C-Spine: COMMON NORMALS: no JVD Resp: COMMON NORMALS: normal respiratory effort, No retractions, No use of accessory muscles and clear to auscultation bilaterally AUSCULTATION: clear to auscultation bilaterally Cardio: COMMON NORMALS: no JVD, regular rate, regular rhythm, S1 normal heart sound present and S2 normal heart sound present RATE: regular rate RHYTHM: regular rhythm HEART SOUNDS: S1 normal heart sound present and S2 normal heart sound present GI: COMMON NORMALS: Normal to inspection, nondistended, normoactive bowel sounds present, Soft to palpation, non-tender, No hepatosplenomegaly present, no masses and no bruits PALPATION: Yes Soft to palpation and Yes No hepatosplenomegaly present Extremity: COMMON NORMALS: capillary refill normal, no clubbing, cyanosis or edema, no calf tenderness and no pedal edema Neuro: COMMON NORMALS: patient oriented x3 Psych: COMMON NORMALS: mental status grossly normal Data : 07/13/20 05:02 07/13/20 05:02 A&P Assessment and plan (1) Suicidal ideation: -Currently on a 96-hour hold, will have to renew -Dr. Reed to see patient -Denies any active suicidal homicidal ideation Status: Acute (2) Alcohol dependence with withdrawal: -Last drink was of vodka sometime Friday -CIWA minimal - CIWA scoring, monitor mentation -Continue Librium 25 mg every 6 hours -Thiamine, folic acid -On p.o. Augmentin -Currently Suboxone is on hold Status: Acute (3) Type 2 diabetes mellitus with hyperglycemia: -A1c was under 6.5, monitor blood sugars Status: Acute (4) Essential (primary) hypertension: -Elevated blood pressures likely secondary to alcohol withdrawal, continue to monitor Status: Acute (5) Hepatitis C antibody positive in blood: -Will need to follow-up with GI as outpatient -Liver ultrasound shows hepatomegaly with diffuse fatty infiltration Status: Chronic (6) Thrombocytopenia: -Likely secondary to hepatitis C, and chronic alcoholism -Currently 33,000, no active signs of bleeding Status: Acute (7) Transaminitis: -Likely secondary to hepatitis C, chronic alcoholism Status: Acute Additional A&P Information Hypomagnesemia, IV replacement Hypophosphatemia, IV replacement Lymphopenia, afebrile, likely second to aspiration pneumonia, resolved, continue to monitor Temazepam to be started tonight to help her fall asleep Full code SCDs for DVT prophylaxis, Lovenox contraindicated given history of alcoholism, risk of bleeding, thrombocytopenia Plan for today continue Librium, continue to monitor mentation, awaiting psychiatrist recommendations Attestations Medical Necessity Statement*: Patient requires hospitalization for suicidal ideation, alcohol withdrawal, thrombocytopenia Coding Level of Care Code Acute Display Coordinator 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
--- NOTE | 2020-07-13 16:41 | PM.PSYCN ---
Providers/Reason for Consult Consulting Physican/Specialty*: Zain Reed DO Reason for Consult*: Alcohol intoxication/suicidal ideation Attending Physician: Navid Peres MD Primary Care Provider: [place] Choudhary Psych Consult HPI History of Present Illness Wendy De La Cruz is a 30 year old female well known to the hospital for presenting in a similar manner with alcohol intoxication currently presenting with alcohol intoxication with reported being suicidal while intoxicated with blood alcohol level of 367 although not currently suicidal but continues to be on 96-hour hold. Patient denies any recent depressive symptoms and denies any current depressive symptoms and denies any suicidal ideation throughout her hospital stay. Patient has longstanding history of making suicidal statements while intoxicated and subsequently denying when sobering. Psychiatric review of systems is otherwise negative. Had discussion with patient with regards to need for sobriety as well as need for substance counseling/treatment which the patient communicated her understanding and agreement. Review of Systems General: Reports: 10 or more systems reviewed and unremarkable except in HPI and below Meds Current Medications: Current Medications Generic Name Dose Route Start Last Admin Trade Name Freq PRN Reason Stop Dose Admin Albuterol Sulfate 2 puff 07/10/20 08:04 07/12/20 09:11 Albuterol 8 Gm M di INHALATION 2 puff QID PRN Administration shortness of clint th or wheezing Amoxicillin/Clavul anate Potassium 1 tab 07/12/20 18:00 07/13/20 08:02 Amoxicillin-Clav 875-125 Mg Tablet PO 1 tab BID JULIANO Administration Protocol Chlordiazepoxide 25 mg 07/12/20 08:00 07/13/20 13:08 Chlordiazepoxide 25 Mg Capsule PO 25 mg Q6H JULIANO Administration Clonidine HCl 0.1 mg 07/10/20 15:07/13/20 14:10 Clonidine 0.1 Mg Tablet PO 0.1 mg TID JULIANO Administration Fluoxetine HCl 20 mg 07/10/20 09:00 07/13/20 08:02 Fluoxetine 20 Mg Capsule PO 20 mg DAILY JULIANO Administration Folic Acid 1 mg 07/10/20 09:00 07/13/20 08:02 Folic Acid 1 Mg Tablet PO 1 mg DAILY JULIANO Administration Lisinopril 5 mg 07/10/20 15:05 07/13/20 08:02 Lisinopril 5 Mg Tablet PO 5 mg DAILY JULIANO Administration Multivitamins Ther apeutic 1 tab 07/10/20 09:00 07/13/20 08:02 Multivitamin The rapeutic Tablet PO 1 tab DAILY JULIANO Administration Nicotine 1 patch 07/10/20 09:00 07/13/20 08:03 Nicotine 21 Mg P atch TRANSDERMA Not Given DAILY JULIANO Non-Formulary Medi cation 1 inh 07/10/20 09:00 07/12/20 09:29 Budesonide [Pulm icort Flexhaler] INHALATION Not Given DAILY JULIANO Potassium Phosphat e 250 mg 07/11/20 09:00 07/13/20 08:02 Phosphorus 250 M g Tablet PO 250 mg BID JULIANO Administration Temazepam 15 mg 07/12/20 21:00 07/12/20 21:09 Temazepam 15 Mg Capsule PO 15 mg BEDTIME PRN Administration INSOMNIA Thiamine Mononitra te 100 mg 07/10/20 09:00 07/13/20 08:02 Thiamine 100 Mg Tablet PO 100 mg DAILY JULIANO Administration Trazodone HCl 150 mg 07/10/20 21:00 07/12/20 20:29 Trazodone 150 Mg Tablet PO 150 mg BEDTIME JULIANO Administration Venlafaxine HCl 150 mg 07/10/20 09:00 07/13/20 08:02 Venlafaxine Er ( 24hr) 150 Mg Capsu le PO 150 mg DAILY JULIANO Administration PFSH NPU PFSH: Medical History Alcohol abuse with alcohol-induced mood disorder Essential (primary) hypertension not on any chronic treatment 09/26 Family history of alpha 1 antitrypsin deficiency Fibromyalgia Generalized anxiety disorder H/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, includes meth, heroin, others, on buprenorphine Hepatitis C antibody positive in blood Hx of abscess of skin and subcutaneous tissue right arm Major depressive disorder, recurrent, moderate Nontoxic thyroid nodule Opioid abuse Polycystic ovarian syndrome polycystic ovaries not notated on CT abdomen/pelvis 01/26 Tobacco dependency Unspecified asthma, uncomplicated onset in childhood Surgical History Hx of cholecystectomy Family History Other [id number] deficiency Drug abuse, amphetamine type Hypertension Social History Smoking and tobacco status: current every day smoker cigarettes Packs smoked per day: 1.5 Years cigarettes smoked: 15 Quit status (tobacco): considering quitting Second hand smoke exposure: Yes Smoking risk assessment/counseling performed?: Yes Alcohol intake: current Alcohol intake frequency: 3 or more drinks per day Alcohol type: hard liquor Desire information about alcohol rehabilitation?: Yes Counseling given: No Desire information about substance/drug rehabilitation?: No Counseling given: No Other details last substance use: Has used methamphetamine, heroin, pain medications. Adopted: No Caregiver/support person: No Lives independently: Yes Household members: friend(s) Housing: Manufactured/Mobile home Marital status: Single Number of children: 2 service: No Current occupational status: unemployed History of recent travel: No Current gender identity: Female Other Psychiatric History: Other Psychiatric History: Patient with longstanding psychiatric issues with no subsequent changes and poor compliance with abstaining from alcohol. Female Reproductive History: Para: 2 Mental Status Exam MSE Comments: Sitting up in her bed, polite, interactive, obese, good eye contact Psychomotor activity is neither increased nor decreased, no agitation Speech is normal rate and volume, fair articulation, spontaneous, not pressured I feel much better, congruent affect, smiles appropriately at times during interview, not labile Alert and oriented to person, place, time, situation Memory and concentration appear to be intact per interview Thought process, linear, no flight of ideas, no looseness of associations Thought content, no delusions, no hallucinations, does not appear to be attending to any internal stimuli, no suicidal or homicidal ideation Insight and judgment appear to be fair to intact Vitals/I&O/Wt Last Vital Signs Temp 98.2 F 07/13/20 08:35 Pulse 89 07/13/20 16:20 Resp 18 07/13/20 16:20 BP 118/82 07/13/20 16:20 Pulse Ox 98 07/13/20 16:20 07/13/20 07/13/20 07/13/20 06:59 14:59 22:59 Intake Total 880 / 880 Output Total 1400 / 1400 Balance -1400 / -150 880 / 880 A&P Assessment and plan (1) Alcohol dependence with withdrawal: Status: Acute (2) Suicidal ideation: Status: Acute Additional A&P Information Patient with reported suicidal ideation at the time of admission when her blood alcohol level was 367 with no subsequent endorsement of suicidal ideation and no report of any recent or current depressive symptoms. Patient does not appear to be an imminent threat of harm to self or others although her risk may be elevated if she continues to use alcohol or any substances which may lead to unexpected, impulsive behavior. Inpatient psychiatric hospitalization is not indicated at this time, outpatient medication management as well as substance counseling/treatment are the least restrictive and appropriate level of care at this time DISCONTINUE one-to-one observation CONTINUE current home medication, follow-up with outpatient psychiatry for medication management Discussed abstaining from the use of alcohol or any substances with patient, who communicated her understanding and agreement. RECOMMEND substance counseling/treatment Psychiatry will sign off at this time Involuntary Hold Information 96 Hour Hold: 96 Hour Involuntary Admission: Yes 96 Hour Hold Ending Date: 04/11/21 96 Hour Hold Ending Time: 23:18 Attestations NPU Medical Necessity Statement*: Ongoing hospitalization being managed by hospitalist until patient medically stabilized Time Spent in Patient Care: Greater than 35 minutes (>than 50% of time spent in counselling and/or direct pt care on unit). Coding Level of Care Code Acute Stroke Coordinator for Bartolo Lund Diagnoses Alcohol dependence with withdrawal F10.239 Suicidal ideation R45.851
--- NOTE | 2020-07-13 16:54 | P.DS_ITS ---
Discharge Providers Date of Admission: 07/09/20 18:45 Date of Discharge: July 13, 2020 Attending Provider at Admission: Delano Patricia MD Attending Provider at Discharge: Navid Peres MD Primary Care Provider: [place] Choudhary Diagnoses at Discharge Discharge Diagnosis (1) Alcohol dependence with withdrawal: Status: Acute (2) Suicidal ideation: Status: Acute Reason for Visit Reason for Visit: ETOH; SI Hospital Course Hospital Course This is a 30-year-old female with a past medical history of alcohol abuse, hepatitis C, fatty liver disease, chronic thrombocytopenia, transaminitis, chronic anemia who presents to [facility] due to suicidal ideation and alcohol intoxication Patient was admitted to [facility] ICU for acute alcohol withdrawal, received [place] protocol, clinically improved, discharged on Librium taper. Patient was advised to hold Suboxone until Librium taper has finished. For her chronic thrombocytopenia, secondary to hep C, chronic alcoholism, liver disease platelet count on discharge 31,000, follow-up with David Villar in 1 week for recheck platelet count For her her suicidal ideation, no active suicidal homicidal ideation, was seen by psychiatry, was discharged home with follow-up with [facility] follow-up as outpatient For hepatitis C, advised to follow-up with Dr. Garces as outpatient for treatment. For aspiration pneumonia, discharged on Augmentin Physical Exam Const: COMMON NORMALS: no acute distress and patient oriented x3 HENMT: COMMON NORMALS: normocephalic HEAD & SCALP: normocephalic Neck/C-Spine: COMMON NORMALS: no JVD Resp: COMMON NORMALS: normal respiratory effort, No retractions, No use of accessory muscles and clear to auscultation bilaterally AUSCULTATION: clear to auscultation bilaterally Cardio: COMMON NORMALS: no JVD, regular rate, regular rhythm, S1 normal heart sound present and S2 normal heart sound present RATE: regular rate RHYTHM: regular rhythm HEART SOUNDS: S1 normal heart sound present and S2 normal heart sound present GI: COMMON NORMALS: Normal to inspection, nondistended, normoactive bowel sounds present, Soft to palpation, non-tender, No hepatosplenomegaly present, no masses and no bruits PALPATION: Yes Soft to palpation and Yes No hepatosplenomegaly present Extremity: COMMON NORMALS: capillary refill normal, no clubbing, cyanosis or edema, no calf tenderness and no pedal edema Neuro: COMMON NORMALS: patient oriented x3 Psych: COMMON NORMALS: mental status grossly normal Discharge Data Data Completed and Pending: Completed Studies During Hospitalization Category Date Time Status XR chest 1V april ble [id number] Urgent Exams 07/09/20 14:01 [place] liver [id number] Ro utine Ultrasound 07/11/20 13:04 Completed Pending at discharge Category Date Time Status Complete Blood Co unt w/Auto AM LABS Lab 07/14/20 04:00 Ordered Complete Blood Co unt w/Auto AM LABS Lab 07/15/20 04:00 Ordered Complete Blood Co unt w/Auto AM LABS Lab 07/16/20 04:00 Ordered Comprehensive Met abolic Panel AM LA BS Lab 07/14/20 04:00 Ordered Comprehensive Met abolic Panel AM LA BS Lab 07/15/20 04:00 Ordered Comprehensive Met abolic Panel AM LA BS Lab 07/16/20 04:00 Ordered Labs from last 24 hours 07/13/20 07/13/20 07/13/20 12:00 05:02 05:02 WBC 3.9 L RBC 4.08 L Hgb 13.7 Hct 40.7 MCV 99.8 H MCH 33.6 MCHC 33.7 RDW 14.6 Plt Count 31 L MPV 12.8 H Neut % (Auto) 52.3 Lymph % (Auto) 33.8 [place] % (Auto) 7.7 Eos % (Auto) 4.6 Baso % (Auto) 0.8 Neut # (Auto) 2.03 Lymph # (Auto) 1.3 [place] # (Auto) 0.3 Eos # (Auto) 0.2 Baso # (Auto) 0.0 Nucleated RBC % (a uto) 0 Nucleated RBCs # 0.0 Sodium 138 Potassium 3.6 Chloride 100 Carbon Dioxide 28 Anion Gap 13.6 BUN 5 L Creatinine 0.6 GFR Calculation 116.6 Glucose 101 POC Glucose 104 Calculated Osmolal ity 283 L Calcium 8.7 Phosphorus 5.1 H Magnesium 1.6 L Total Bilirubin 0.6 AST 165 H ALT 97 H Alkaline Phosphata se 61 Total Protein 6.7 Albumin 3.5 Globulin 3.2 Vitals: Last Vital Signs Temp 98.2 F 07/13/20 08:35 Pulse 89 07/13/20 16:20 Resp 18 07/13/20 16:20 BP 118/82 07/13/20 16:20 Pulse Ox 98 07/13/20 16:20 Discharge Plan Discharge Patient Disposition: Home Condition: Stable Prescriptions: New chlordiazepoxide HCl 25 mg Capsule See Rx Instructions .ROUTE .COMPLEX Qty: 30 RF: 0 lisinopril 5 mg Tablet 5 mg PO DAILY 30 Days Qty: 30 RF: 0 amoxicillin-pot clavulanate 875-125 mg Tablet 1 tab PO BID 5 Days Qty: 10 RF: 0 Continued albuterol sulfate [ProAir HFA] 90 mcg/actuation HFA aerosol inhaler 2 puff inhalation QID PRN (Reason: shortness of breath or wheezing) 30 Days Qty: 6.7 RF: 2 cyclobenzaprine 10 mg tablet 10 mg PO BID PRN (Reason: muscle spasm) 30 Days Qty: 60 RF: 0 nicotine 21 mg/24 hr Patch 24 Hour 1 patch transdermal DAILY 28 Days Qty: 28 RF: 1 folic acid 1 mg Tablet 1 mg PO DAILY 30 Days Qty: 30 RF: 1 fluoxetine [Prozac] 20 mg Capsule 20 mg PO DAILY 30 Days Qty: 30 RF: 1 (DME) nebulizer accessories Kit See Rx Instructions .ROUTE .MEDSUPPLY Qty: 1 RF: 0 thiamine mononitrate (vit B1) [Vitamin B-1 (mononitrate)] 100 mg Tablet 100 mg PO DAILY 30 Days Qty: 30 RF: 1 multivitamin with folic acid [Thera] 400 mcg Tablet 1 tab PO DAILY 30 Days Qty: 30 RF: 1 epinephrine [EpiPen 2-Gerardo] 0.3 mg/0.3 mL auto-injector 0.3 mg IM Q10M PRN (Reason: anaphylaxis) 30 Days Qty: 2 RF: 1 Pulmicort Flexhaler 180 mcg/actuation Aerosol Powdr Breath Activated 1 inh INHALATION DAILY RF: 0 venlafaxine 150 mg Capsule,Extended Release 24hr 150 mg PO DAILY 30 Days Qty: 30 RF: 1 prazosin 1 mg capsule 1 mg PO BEDTIME 30 Days Qty: 30 RF: 1 trazodone 150 mg Tablet 150 mg PO BEDTIME 30 Days Qty: 30 RF: 1 metformin 500 mg tablet extended release 24hr 1,000 mg PO DAILY 30 Days Qty: 60 RF: 1 Held buprenorphine-naloxone 8-2 mg tablet, sublingual 8 tab sublingual TID RF: 0 Hold Instructions: Resume on 07/27/20. hold until librium taper finished Discontinued chlordiazepoxide HCl 25 mg capsule 25 mg PO BID PRN (Reason: alcohol withdrawal) Qty: 6 RF: 0 Discharge Orders: Discharge Order (Routine); Ordered 07/13/20 Ordered By: Navid Peres Referrals: David Villar, [facility] [Primary Care Provider] - 4-7 days Discharge Diet: Advance as tolerated Discharge Activity: Resume usual activity Patient Instructions: Opioid Safety Activity Restrictions/Additional Instructions: -David Villar on Friday for recheck CBC, monitor platelet count 31,000 on discharge -Please stop alcohol consumption -Please follow-up with [facility] as outpatient -Continue Librium taper, do not take with Suboxone -Please follow with Dr. Garces for hepatitis C Discharge Attestations Time Spent in Discharge Care*: other Status at Discharge: Cognitive status at discharge: cognitively intact , Behavioral status at discharge: cooperative , Quality Metrics Clinical Quality Measures During this hospital stay, did patient experience: None Coding Level of Care Code Acute Chg FW DC note Diagnoses Alcohol dependence with withdrawal F10.239 Suicidal ideation R45.858
== END 2020-07-13 17:27 | disposition home or self-care (01) | DRG 897 ==
LOC: ER 18:49 → ICU 19:54
PROVIDERS: Admitting Provider Internal Medicine; Emergency Provider Family Medicine; PCP Nurse Practitioner; Visit Provider Family Medicine
DX: F10.229 Alcohol dependence with intoxication, unspecified (principal); J44.1 Chronic obstructive pulmonary disease with (acute) exacerbation; R45.851 Suicidal ideations; F33.9 Major depressive disorder, recurrent, unspecified; F10.239 Alcohol dependence with withdrawal, unspecified; Y90.9 Presence of alcohol in blood, level not specified; F10.24 Alcohol dependence with alcohol-induced mood disorder; F17.210 Nicotine dependence, cigarettes, uncomplicated; Z86.16 Personal history of COVID-19; I10 Essential (primary) hypertension; Z83.2 Family history of diseases of the blood and blood-forming organs and certain disorders involving the immune mechanism; M79.7 Fibromyalgia; F41.8 Other specified anxiety disorders; B19.20 Unspecified viral hepatitis C without hepatic coma; E04.1 Nontoxic single thyroid nodule; F11.10 Opioid abuse, uncomplicated; E28.2 Polycystic ovarian syndrome; D69.59 Other secondary thrombocytopenia; Z79.84 Long term (current) use of oral hypoglycemic drugs; Z79.51 Long term (current) use of inhaled steroids; E83.39 Other disorders of phosphorus metabolism; E83.42 Hypomagnesemia; E11.65 Type 2 diabetes mellitus with hyperglycemia; E87.6 Hypokalemia
CPT/HCPCS: 36415; 36416; 71045; 76705; 80053; 80074; 80306; 80307; 81001; 81025; 82550; 82962; 83036; 83605; 83690; 83735; 84100; 84145; 84443; 84484; 85025; 87426; 87806; 93005; 94640; 94664; 96372; 99285; J1630; J1940; J1956; J2060; J2543; J3411; J3475; J3486; J3535; J7030

== ENCOUNTER 2020-07-21 17:10 | Emergency (ER) | payer MEDICAID, SELFPAY ==
[2020-07-21 17:26] VITALS: BP 121/88; PULSE 123; RESP 20; TEMP 37.6; O2SAT 95; BMI 48.0
--- NOTE | 2020-07-21 17:38 | ED_ITS ---
Documented by User: Jeyson Amador DO 07/22/20 08:41 HPI - Psych General: Chief Complaint: Psychiatric Symptoms Stated Complaint: ETOH/ STOMACH PAIN/ HEART PAIN Time Seen by Provider: 07/21/20 17:15 History of Present Illness: HPI Narrative: 30-year-old female presents emergency room acutely intoxicated complaining of abdominal and chest pain. She is making suicidal commendations to EMS as well as to myself she makes veiled threats to herself about wanting to at home but will not answer specifically she has a plan but that she does want to harm herself and . She is acutely intoxicated. Patient is a well-known entity to the ER. Unfortunately she frequently comes in highly intoxicated she makes suicidal overtures but is never progressed lethality she will get 96 when she daphnie up she retracts and is discharged. Patient is seen in the room she is uncooperative she is continually trying to crawl out of the bed given her intoxication is extremely unsafe. At one point she crawled off the end of the bed and almost fell onto the floor except the staff assisted her. Patient was assisted back to bed advised her we need her to stay in the bed for her own safety because of intoxication she was putting herself at risk if she continue to try to call out of the bed for her own safety we would have to restrain her. Fortunately with redirection she complied and we were not forced to put her in any sort of restraint. History of same: Yes Exacerbating factors: alcohol Context: recent alcohol abuse Associated symptoms: Reports suicidal ideation Treatments prior to arrival: none If self harm: admits thoughts of self harm Review of Systems Const: Denies: fever(s), chills, body aches, change in appetite, fatigue or malaise ENMT: Denies: throat pain, ear or mastoid pain, nasal discharge or nasal congestion Card: Denies: chest pain, edema, dyspnea on exertion or orthopnea Resp: Denies: dyspnea, productive cough or non-productive cough GI: Denies: abdominal pain, nausea, vomiting, hematemesis, coffee ground emesis, diarrhea, constipation, bloating, hematochezia or melena : Denies: flank pain, difficulty voiding, dysuria, urinary frequency or urinary urgency Skin/Breast: Denies: rash or pruritus Psych: Reports: suicidal ideation [facility] ED PFSH: Medical History Alcohol abuse with alcohol-induced mood disorder Essential (primary) hypertension not on any chronic treatment 09/26 Family history of alpha 1 antitrypsin deficiency Fibromyalgia Generalized anxiety disorder H/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, includes meth, heroin, others, on buprenorphine Hepatitis C antibody positive in blood Hx of abscess of skin and subcutaneous tissue right arm Major depressive disorder, recurrent, moderate Nontoxic thyroid nodule Opioid abuse Polycystic ovarian syndrome polycystic ovaries not notated on CT abdomen/pelvis 01/26 Tobacco dependency Unspecified asthma, uncomplicated onset in childhood Surgical History Hx of cholecystectomy Family History Other Fcsdo-[id number] deficiency Drug abuse, amphetamine type Hypertension Social History Smoking and tobacco status: current every day smoker cigarettes Packs smoked per day: 1.5 Years cigarettes smoked: 15 Quit status (tobacco): considering quitting Second hand smoke exposure: Yes Smoking risk assessment/counseling performed?: Yes Alcohol intake: current Alcohol intake frequency: 3 or more drinks per day Alcohol type: hard liquor Desire information about alcohol rehabilitation?: Yes Counseling given: No Desire information about substance/drug rehabilitation?: No Counseling given: No Other details last substance use: Has used methamphetamine, heroin, pain medications. Adopted: No Caregiver/support person: No Lives independently: Yes Household members: friend(s) Housing: Manufactured/Mobile home Marital status: Single Number of children: 2 service: No Current occupational status: unemployed History of recent travel: No Current gender identity: Female Female Reproductive History: Date of last menstrual period: 06/09/20 Para: 2 Physical Exam Const: COMMON NORMALS: no acute distress ORIENTATION/CONSCIOUSNESS: Yes awake HENMT: COMMON NORMALS: normocephalic, atraumatic and hearing grossly normal bilaterally HEAD & SCALP: normocephalic and atraumatic Neck/C-Spine: COMMON NORMALS: no JVD Resp: COMMON NORMALS: normal respiratory effort, No retractions, No use of accessory muscles and clear to auscultation bilaterally AUSCULTATION: clear to auscultation bilaterally Cardio: COMMON NORMALS: no JVD, regular rate, regular rhythm and No murmurs present (Cardio) RATE: regular rate RHYTHM: regular rhythm GI: COMMON NORMALS: Soft to palpation and No hepatosplenomegaly present AUSCULTATION: Yes normoactive bowel sounds PALPATION: Yes Soft to palpation, No Tenderness to palpation present (GI), No Guarding due to palpation present (GI) and Yes No hepatosplenomegaly present Extremity: COMMON NORMALS: normal to inspection, capillary refill normal, no clubbing, cyanosis or edema, no calf tenderness and no pedal edema Skin: COMMON NORMALS: no rashes or lesions noted GENERAL SKIN EXAM: no rashes or lesions noted Course Vital Signs: Vital signs: Vital Signs Temperature 98.6 F 07/21/20 23:04 Pulse Rate 136 H 07/22/20 04:42 Respiratory Rate 15 07/22/20 04:42 Blood Pressure 161/132 07/22/20 04:42 Pulse Oximetry 94 07/22/20 04:42 MDM - Psych MDM Narrative: Medical decision making narrative: Patient is acutely intoxicated. She is making suicidal ideations. She denies multiple times in the past usually resolves when she is sober. 96-hour paperwork filled out for now lab work pending care turned over to Dr. Martinez at change of shift see his notes for final diagnosis and disposition Lab Data: Labs: Lab Results 07/21/20 07/21/20 07/21/20 Range/Units 17:41 18:00 18:00 WBC 8.0 (4.0-10.0) 10^3/ uL RBC 4.66 (4.1-5.3) 10^6/u L Hgb 15.8 H (11.5-15.3) g/dL Hct 46.6 (37.0-47.0) % MCV 100.0 H (81-99) fL MCH 33.9 (28.0-34.0) pg MCHC 33.9 (30.0-36.0) g/dL RDW 15.0 (12.1-15.1) % Plt Count 339 (130-400) 10^3/c mm MPV 10.0 (7.4-10.4) fL Neut % (Auto) 46.7 % Lymph % (Auto) 46.4 % Early % (Auto) 5.0 % Eos % (Auto) 0.9 % Baso % (Auto) 0.9 % Neut # (Auto) 3.74 (1.8-7.7) 10^3/u L Lymph # (Auto) 3.7 (0.8-4.8) 10^3/u L Early # (Auto) 0.4 (0.2-0.9) 10^3/u L Eos # (Auto) 0.1 (0.0-0.8) 10^3/u L Baso # (Auto) 0.1 (0.0-0.1) 10^3/u L Nucleated RBC % (a uto) 0 % Nucleated RBCs # 0.0 /100WBC Sodium 141 (136-145) mmol/L Potassium 3.7 (3.5-5.1) mmol/L Chloride 101 (98-107) mmol/L Carbon Dioxide 24 (22-29) mmol/L Anion Gap 19.7 H (5-19) BUN 5 L (6-20) mg/dL Creatinine 0.8 (0.5-0.9) mg/dL GFR Calculation 83.7 L (90-130) mL/min Glucose 94 (65-115) mg/dL Calculated Osmolal ity 289 (285-295) mOsm/k g Calcium 8.7 (8.5-10.5) mg/dL Total Bilirubin 0.7 (0.15-1.2) mg/dL AST 136 H (0-32) U/L ALT 112 H (0-33) U/L Alkaline Phosphata se 65 (35-105) IU/L Total Protein 8.4 (6.6-8.7) g/dL Albumin 4.2 (3.5-5.2) g/dL Globulin 4.2 (1.3-4.6) g/dL Urine Color Yellow (Yellow) Urine Appearance Sl hazy (CLEAR) Urine pH 5 (5-7) Ur Specific Gravit y 1.005 (1.005-1.030) Urine Protein Neg (Negative) Urine Glucose (UA) Norm (Normal) Urine Ketones Negative (Negative) Urine Blood 3+ H (Negative) Urine Nitrate Negative (Negative) Urine Bilirubin Neg (Negative) Urine Urobilinogen 1 H (Negative) mg/dL Ur Leukocyte Louisa ase Negative (Negative) Urine RBC >100 H (0-2) /hpf Urine WBC 0-4 H (0-5) /hpf Ur Squamous Epith Cells 10-15 H (0-5) /hpf Amorphous Sediment Not Reportable Urine Bacteria Trace (NONE) /hpf Salicylates < 0.3 L (3-10) mg/dL Acetaminophen < 5.0 L (10-30) ug/mL Ethyl Alcohol 387 H* (0-10) mg/dL Discharge Plan Discharge Patient Disposition: Home Clinical Impression: Alcohol use disorder, Depression Condition: Stable Prescriptions: No Action albuterol sulfate [ProAir HFA] 90 mcg/actuation HFA aerosol inhaler 2 puff inhalation QID PRN (Reason: shortness of breath or wheezing) 30 Days Qty: 6.7 RF: 2 cyclobenzaprine 10 mg tablet 10 mg PO BID PRN (Reason: muscle spasm) 30 Days Qty: 60 RF: 0 buprenorphine-naloxone 8-2 mg tablet, sublingual 8 tab sublingual TID RF: 0 Hold Instructions: Resume on 07/27/20. hold until librium taper finished nicotine 21 mg/24 hr Patch 24 Hour 1 patch transdermal DAILY 28 Days Qty: 28 RF: 1 folic acid 1 mg Tablet 1 mg PO DAILY 30 Days Qty: 30 RF: 1 fluoxetine [Prozac] 20 mg Capsule 20 mg PO DAILY 30 Days Qty: 30 RF: 1 (DME) nebulizer accessories Kit See Rx Instructions .ROUTE .MEDSUPPLY Qty: 1 RF: 0 thiamine mononitrate (vit B1) [Vitamin B-1 (mononitrate)] 100 mg Tablet 100 mg PO DAILY 30 Days Qty: 30 RF: 1 multivitamin with folic acid [Thera] 400 mcg Tablet 1 tab PO DAILY 30 Days Qty: 30 RF: 1 epinephrine [EpiPen 2-Gerardo] 0.3 mg/0.3 mL auto-injector 0.3 mg IM Q10M PRN (Reason: anaphylaxis) 30 Days Qty: 2 RF: 1 Pulmicort Flexhaler 180 mcg/actuation Aerosol Powdr Breath Activated 1 inh INHALATION DAILY RF: 0 venlafaxine 150 mg Capsule,Extended Release 24hr 150 mg PO DAILY 30 Days Qty: 30 RF: 1 prazosin 1 mg capsule 1 mg PO BEDTIME 30 Days Qty: 30 RF: 1 trazodone 150 mg Tablet 150 mg PO BEDTIME 30 Days Qty: 30 RF: 1 metformin 500 mg tablet extended release 24hr 1,000 mg PO DAILY 30 Days Qty: 60 RF: 1 chlordiazepoxide HCl 25 mg Capsule See Rx Instructions .ROUTE .COMPLEX Qty: 30 RF: 0 lisinopril 5 mg Tablet 5 mg PO DAILY 30 Days Qty: 30 RF: 0 Discharge Orders: Discharge ED (Routine); Ordered 07/21/20 Ordered By: Niranjan Martinez Referrals: David Villar, [place] [Primary Care Provider] - Discharge Diet: Advance as tolerated Discharge Activity: Resume usual activity Patient Instructions: Abuse of Alcohol (ED) Coding Level of Care Code ED Web Marketing Assistant for Chg Fwd Exam Comprehensive Documented by User: Niranjan Martinez MD 07/22/20 04:37 HPI - Psych General: Chief Complaint: Psychiatric Symptoms Stated Complaint: ETOH/ STOMACH PAIN/ HEART PAIN Time Seen by Provider: 07/21/20 17:15 [facility] ED PFSH: Medical History Alcohol abuse with alcohol-induced mood disorder Essential (primary) hypertension not on any chronic treatment 09/26 Family history of alpha 1 antitrypsin deficiency Fibromyalgia Generalized anxiety disorder H/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, includes meth, heroin, others, on buprenorphine Hepatitis C antibody positive in blood Hx of abscess of skin and subcutaneous tissue right arm Major depressive disorder, recurrent, moderate Nontoxic thyroid nodule Opioid abuse Polycystic ovarian syndrome polycystic ovaries not notated on CT abdomen/pelvis 01/26 Tobacco dependency Unspecified asthma, uncomplicated onset in childhood Surgical History Hx of cholecystectomy Family History Other Vedmu-[id number] deficiency Drug abuse, amphetamine type Hypertension Social History Smoking and tobacco status: current every day smoker cigarettes Packs smoked per day: 1.5 Years cigarettes smoked: 15 Quit status (tobacco): considering quitting Second hand smoke exposure: Yes Smoking risk assessment/counseling performed?: Yes Alcohol intake: current Alcohol intake frequency: 3 or more drinks per day Alcohol type: hard liquor Desire information about alcohol rehabilitation?: Yes Counseling given: No Desire information about substance/drug rehabilitation?: No Counseling given: No Other details last substance use: Has used methamphetamine, heroin, pain medications. Adopted: No Caregiver/support person: No Lives independently: Yes Household members: friend(s) Housing: Manufactured/Mobile home Marital status: Single Number of children: 2 service: No Current occupational status: unemployed History of recent travel: No Current gender identity: Female Course Vital Signs: Vital signs: Vital Signs Temperature 98.6 F 07/21/20 23:04 Pulse Rate 136 H 07/22/20 04:42 Respiratory Rate 15 07/22/20 04:42 Blood Pressure 161/132 07/22/20 04:42 Pulse Oximetry 94 07/22/20 04:42 MDM - Psych MDM Narrative: Medical decision making narrative: Patient presents here with depression along with extreme intoxication. After patient sobered up I had her evaluated by Dr. Loyd who felt like she was not suicidal. She is adamantly denying suicidal she is sober and she is on this multiple times before. He recommended discharge I feel she is stable for discharge. Patient discharged at this time. Lab Data: Labs: Lab Results 07/21/20 07/21/20 07/21/20 Range/Units 17:41 18:00 18:00 WBC 8.0 (4.0-10.0) 10^3/ uL RBC 4.66 (4.1-5.3) 10^6/u L Hgb 15.8 H (11.5-15.3) g/dL Hct 46.6 (37.0-47.0) % MCV 100.0 H (81-99) fL MCH 33.9 (28.0-34.0) pg MCHC 33.9 (30.0-36.0) g/dL RDW 15.0 (12.1-15.1) % Plt Count 339 (130-400) 10^3/c mm MPV 10.0 (7.4-10.4) fL Neut % (Auto) 46.7 % Lymph % (Auto) 46.4 % Early % (Auto) 5.0 % Eos % (Auto) 0.9 % Baso % (Auto) 0.9 % Neut # (Auto) 3.74 (1.8-7.7) 10^3/u L Lymph # (Auto) 3.7 (0.8-4.8) 10^3/u L Early # (Auto) 0.4 (0.2-0.9) 10^3/u L Eos # (Auto) 0.1 (0.0-0.8) 10^3/u L Baso # (Auto) 0.1 (0.0-0.1) 10^3/u L Nucleated RBC % (a uto) 0 % Nucleated RBCs # 0.0 /100WBC Sodium 141 (136-145) mmol/L Potassium 3.7 (3.5-5.1) mmol/L Chloride 101 (98-107) mmol/L Carbon Dioxide 24 (22-29) mmol/L Anion Gap 19.7 H (5-19) BUN 5 L (6-20) mg/dL Creatinine 0.8 (0.5-0.9) mg/dL GFR Calculation 83.7 L (90-130) mL/min Glucose 94 (65-115) mg/dL Calculated Osmolal ity 289 (285-295) mOsm/k g Calcium 8.7 (8.5-10.5) mg/dL Total Bilirubin 0.7 (0.15-1.2) mg/dL AST 136 H (0-32) U/L ALT 112 H (0-33) U/L Alkaline Phosphata se 65 (35-105) IU/L Total Protein 8.4 (6.6-8.7) g/dL Albumin 4.2 (3.5-5.2) g/dL Globulin 4.2 (1.3-4.6) g/dL Urine Color Yellow (Yellow) Urine Appearance Sl hazy (CLEAR) Urine pH 5 (5-7) Ur Specific Gravit y 1.005 (1.005-1.030) Urine Protein Neg (Negative) Urine Glucose (UA) Norm (Normal) Urine Ketones Negative (Negative) Urine Blood 3+ H (Negative) Urine Nitrate Negative (Negative) Urine Bilirubin Neg (Negative) Urine Urobilinogen 1 H (Negative) mg/dL Ur Leukocyte Louisa ase Negative (Negative) Urine RBC >100 H (0-2) /hpf Urine WBC 0-4 H (0-5) /hpf Ur Squamous Epith Cells 10-15 H (0-5) /hpf Amorphous Sediment Not Reportable Urine Bacteria Trace (NONE) /hpf Salicylates < 0.3 L (3-10) mg/dL Acetaminophen < 5.0 L (10-30) ug/mL Ethyl Alcohol 387 H* (0-10) mg/dL Discharge Plan Discharge Patient Disposition: Home Clinical Impression: Alcohol use disorder, Depression Condition: Stable Prescriptions: No Action albuterol sulfate [ProAir HFA] 90 mcg/actuation HFA aerosol inhaler 2 puff inhalation QID PRN (Reason: shortness of breath or wheezing) 30 Days Qty: 6.7 RF: 2 cyclobenzaprine 10 mg tablet 10 mg PO BID PRN (Reason: muscle spasm) 30 Days Qty: 60 RF: 0 buprenorphine-naloxone 8-2 mg tablet, sublingual 8 tab sublingual TID RF: 0 Hold Instructions: Resume on 07/27/20. hold until librium taper finished nicotine 21 mg/24 hr Patch 24 Hour 1 patch transdermal DAILY 28 Days Qty: 28 RF: 1 folic acid 1 mg Tablet 1 mg PO DAILY 30 Days Qty: 30 RF: 1 fluoxetine [Prozac] 20 mg Capsule 20 mg PO DAILY 30 Days Qty: 30 RF: 1 (DME) nebulizer accessories Kit See Rx Instructions .ROUTE .MEDSUPPLY Qty: 1 RF: 0 thiamine mononitrate (vit B1) [Vitamin B-1 (mononitrate)] 100 mg Tablet 100 mg PO DAILY 30 Days Qty: 30 RF: 1 multivitamin with folic acid [Thera] 400 mcg Tablet 1 tab PO DAILY 30 Days Qty: 30 RF: 1 epinephrine [EpiPen 2-Gerardo] 0.3 mg/0.3 mL auto-injector 0.3 mg IM Q10M PRN (Reason: anaphylaxis) 30 Days Qty: 2 RF: 1 Pulmicort Flexhaler 180 mcg/actuation Aerosol Powdr Breath Activated 1 inh INHALATION DAILY RF: 0 venlafaxine 150 mg Capsule,Extended Release 24hr 150 mg PO DAILY 30 Days Qty: 30 RF: 1 prazosin 1 mg capsule 1 mg PO BEDTIME 30 Days Qty: 30 RF: 1 trazodone 150 mg Tablet 150 mg PO BEDTIME 30 Days Qty: 30 RF: 1 metformin 500 mg tablet extended release 24hr 1,000 mg PO DAILY 30 Days Qty: 60 RF: 1 chlordiazepoxide HCl 25 mg Capsule See Rx Instructions .ROUTE .COMPLEX Qty: 30 RF: 0 lisinopril 5 mg Tablet 5 mg PO DAILY 30 Days Qty: 30 RF: 0 Discharge Orders: Discharge ED (Routine); Ordered 07/21/20 Ordered By: Niranjan Martinez Referrals: David Villar, [facility] [Primary Care Provider] - Discharge Diet: Advance as tolerated Discharge Activity: Resume usual activity Patient Instructions: Abuse of Alcohol (ED) Coding Level of Care Code ED Web Marketing Assistant for Bartolo Fwcassius Exam Comprehensive
[2020-07-21] MEDS: LORazepam 2 mg/mL INJ 1 mL IM (17:51)
[2020-07-21 18:07] LABS: Basophils # 0.1 10^3/uL (0.0-0.1); Basophils % 0.9 %; Eosinophils # 0.1 10^3/uL (0.0-0.8); Eosinophils % 0.9 %; Hematocrit 46.6 % (37.0-47.0); Hemoglobin 15.8 g/dL (11.5-15.3); Lymphocytes # 3.7 10^3/uL (0.8-4.8); Lymphocytes % 46.4 %; Mean Corpuscular HGB Conc 33.9 g/dL (30.0-36.0); Mean Corpuscular Hemoglobin 33.9 pg (28.0-34.0); Monocytes # 0.4 10^3/uL (0.2-0.9); Neutrophils # 3.74 10^3/uL (1.8-7.7); Neutrophils % 46.7 %; Nucleated Red Blood Cells % 0 %; Platelet Count 339 10^3/cmm (130-400); Red Blood Count 4.66 10^6/uL (4.1-5.3)
[2020-07-21 18:26] LABS: Alanine Aminotransferase 112 U/L (0-33); Albumin Level 4.2 g/dL (3.5-5.2); Alkaline Phosphatase 65 IU/L (35-105); Blood Urea Nitrogen 5 mg/dL (6-20); Calcium 8.7 mg/dL (8.5-10.5); Carbon Dioxide 24 mmol/L (22-29); Chloride 101 mmol/L (98-107); Globulin 4.2 g/dL (1.3-4.6); Glomerular Filtration Rate 83.7 mL/min (90-130); Glucose 94 mg/dL (65-115); Osmolality Calculated 289 mOsm/kg (285-295); Sodium 141 mmol/L (136-145); Total Bilirubin 0.7 mg/dL (0.15-1.2); Total Protein 8.4 g/dL (6.6-8.7)
[2020-07-21 18:39] LABS: Acetaminophen < 5.0 ug/mL (10-30); Alcohol Level 387 mg/dL (0-10); Anion Gap 19.7 (5-19); Aspartate Amino Transferase 136 U/L (0-32); Potassium 3.7 mmol/L (3.5-5.1); Salicylate < 0.3 mg/dL (3-10)
[2020-07-21] MEDS: ziprasidone 20 mg/mL SDV IM (19:42)
[2020-07-21 19:51] LABS: Add Urine Microscopic? YES; Bilirubin Urine Neg (Negative); Blood Urine 3+ (Negative); Glucose Urine UA Norm (Normal); Ketones Urine Negative (Negative); Leukocyte Esterase Urine Negative (Negative); Nitrate Urine Negative (Negative); Protein Urine Neg (Negative); Specific Gravity, Urine 1.005 (1.005-1.030); Urine Appearance SL Hazy (CLEAR); Urine Color Yellow (Yellow); Urobilinogen Urine 1 mg/dL (Negative); pH Urine 5 (5-7)
[2020-07-21 19:58] LABS: Add Urine Culture? No; Bacteria Urine TRACE /hpf; RBC Urine >100 /hpf (0-2); WBC Urine 0-4 /hpf (0-5)
[2020-07-21 20:14] VITALS: BP 116/86; PULSE 125; RESP 18; TEMP 36.5; O2SAT 95
--- NOTE | 2020-07-21 20:19 | PC.NURSE ---
patient is sleeping, easily arousable. no acute distress noted.
[2020-07-21 21:57] VITALS: PULSE 132; RESP 20; TEMP 37.4; O2SAT 96
--- NOTE | 2020-07-21 21:58 | PC.NURSE ---
MD des johnson, patient is resting, no acute distress noted at this time.
[2020-07-21] MEDS: sodium chloride 0.9% 1,000 ML 999 ML IV (22:25)
--- NOTE | 2020-07-21 23:01 | PC.NURSE ---
patient report received from Liana LOGAN and care transferred to DESMOND Guevara
[2020-07-21 23:04] VITALS: TEMP 37
--- NOTE | 2020-07-22 04:40 | PC.NURSE ---
patient discharged and asked to wait in waiting room per doctors orders. nurse expressed concern for patient unable to obtain a ride at this time to hcp.
[2020-07-22 04:42] VITALS: BP 161/132; PULSE 136; RESP 15; O2SAT 94
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
== END 2020-07-22 04:45 | disposition home or self-care (01) ==
PROVIDERS: Family Medicine; Emergency Provider Emergency Medicine; PCP Nurse Practitioner
DX: F32.9 Major depressive disorder, single episode, unspecified (principal); F10.10 Alcohol abuse, uncomplicated; I10 Essential (primary) hypertension; Z86.19 Personal history of other infectious and parasitic diseases; F17.210 Nicotine dependence, cigarettes, uncomplicated
CPT/HCPCS: 80053; 80307; 81001; 85025; 96360; 96372; 99284; J2060; J3411; J3486; J7030

== ENCOUNTER 2020-07-23 14:53 | Emergency (ER) | payer MEDICAID, SELFPAY ==
[2020-07-23] VITALS (7 sets, daily range): BP systolic 106–148; BP diastolic 67–80; PULSE 74–140; RESP 14–16; TEMP 36.6; O2SAT 87–99
--- NOTE | 2020-07-23 14:55 | PC.NURSE ---
Patient took to ER treatment room 15 immediately upon arrival. Patients room made psych safe. Patient placed in gown. Security placed to sit with patient until RN from ICU arrived to sit with patient. Dr. Castillo and housekeeper head DESMOND Schwarz notified of patients arrival.
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
[2020-07-23] MEDS: ziprasidone 20 mg/mL SDV IM (15:20)
--- NOTE | 2020-07-23 16:12 | PC.NURSE ---
Pt now sleeping, placed on O2 d/t 87%. Dr. Castillo notified of vitals.
[2020-07-23] MEDS: lactated ringers 1,000 ML 999 ML IV (16:30)
[2020-07-23 16:35] LABS: Basophils # 0.1 10^3/uL (0.0-0.1); Basophils % 1.8 %; Eosinophils # 0.1 10^3/uL (0.0-0.8); Eosinophils % 2.1 %; Hematocrit 42.4 % (37.0-47.0); Hemoglobin 14.1 g/dL (11.5-15.3); Lymphocytes # 1.8 10^3/uL (0.8-4.8); Lymphocytes % 46.4 %; Mean Corpuscular HGB Conc 33.3 g/dL (30.0-36.0); Mean Corpuscular Hemoglobin 33.8 pg (28.0-34.0); Mean Corpuscular Volume 101.7 fL (81-99); Mean Platelet Volume 9.8 fL (7.4-10.4); Monocytes # 0.2 10^3/uL (0.2-0.9); Monocytes % 3.9 %; Neutrophils # 1.75 10^3/uL (1.8-7.7); Neutrophils % 45.5 %; Nucleated Red Blood Cells % 0 %; Platelet Count 214 10^3/cmm (130-400); Red Blood Count 4.17 10^6/uL (4.1-5.3); White Blood Count 3.8 10^3/uL (4.0-10.0)
[2020-07-23 17:01] LABS: Alanine Aminotransferase 113 U/L (0-33); Albumin Level 3.8 g/dL (3.5-5.2); Alkaline Phosphatase 53 IU/L (35-105); Anion Gap 19.2 (5-19); Aspartate Amino Transferase 183 U/L (0-32); Blood Urea Nitrogen 6 mg/dL (6-20); Calcium 8.1 mg/dL (8.5-10.5); Carbon Dioxide 25 mmol/L (22-29); Chloride 105 mmol/L (98-107); Globulin 3.4 g/dL (1.3-4.6); Glucose 131 mg/dL (65-115); Osmolality Calculated 301 mOsm/kg (285-295); Potassium 3.2 mmol/L (3.5-5.1); Salicylate 0.7 mg/dL (3-10); Sodium 146 mmol/L (136-145); Total Bilirubin 0.4 mg/dL (0.15-1.2); Total Protein 7.2 g/dL (6.6-8.7)
[2020-07-23 17:07] LABS: Acetaminophen < 5.0 ug/mL (10-30)
[2020-07-23 17:09] LABS: Alcohol Level 344 mg/dL (0-10)
[2020-07-23] MEDS: sodium chloride 0.9% 1,000 ML 999 ML IV (18:12)
--- NOTE | 2020-07-23 18:16 | PC.NURSE ---
Pt now awake, compliant, cooperative, and calm. Second liter of fluid started, food and drinks provided. No other needs identified.
[2020-07-23 18:28] LABS: Add Urine Microscopic? NO; Charge for UA Resulting for Rev
[2020-07-23 18:30] LABS: Bilirubin Urine Neg (Negative); Blood Urine Neg (Negative); Glucose Urine UA Norm (Normal); Ketones Urine Negative (Negative); Leukocyte Esterase Urine Negative (Negative); Nitrate Urine Negative (Negative); Protein Urine Neg (Negative); Urine Appearance Clear (CLEAR); Urine Color Yellow (Yellow); Urobilinogen Urine Norm (Negative); pH Urine 5 (5-7)
[2020-07-23 18:39] LABS: Amphetamines Screen Urine Negative (Negative); Barbiturates Screen Urine Negative (Negative); Benzodiazepines Screen Urine Positive (Negative); Cocaine Screen Urine Negative (Negative); Opiate Screen Urine Negative (Negative); PCP Screen Urine Negative (Negative); THC Screen Urine Negative (Negative)
[2020-07-23 20:37] LABS: Alcohol Level 181 mg/dL (0-10)
[2020-07-23] MEDS: LORazepam 2 mg/mL INJ 1 mL 1 MG IVP (21:37)
[2020-07-23] MEDS: ondansetron 2 mg/ML SDV 2 mL 4 MG IVP (21:37)
== END 2020-07-23 22:12 | disposition home or self-care (01) ==
PROVIDERS: Student in an Organized Health Care Education/Training Program; Emergency Provider Emergency Medicine; PCP Nurse Practitioner
DX: R45.851 Suicidal ideations (principal); I10 Essential (primary) hypertension; Z86.19 Personal history of other infectious and parasitic diseases; F17.210 Nicotine dependence, cigarettes, uncomplicated
CPT/HCPCS: 80053; 80306; 80307; 81003; 85025; 96361; 96372; 96374; 96375; 99284; J2060; J2405; J3486; J7030

== ENCOUNTER → 2020-07-27 15:18 | Outpatient (BNVA) | payer MEDICAID, SELFPAY | PROVIDERS: PCP Nurse Practitioner; Visit Provider Nurse Practitioner | DX: R76.8 Other specified abnormal immunological findings in serum (principal) | CPT/HCPCS: 80053; 87522 ==

== ENCOUNTER 2020-08-10 12:38 | Emergency (ER) | payer MEDICAID, SELFPAY ==
[2020-08-10 12:51] VITALS: BP 164/98; PULSE 110; RESP 18; TEMP 37.3; O2SAT 92; BMI 50.7
[2020-08-10 15:22] LABS: Basophils % 0.8 %; Eosinophils % 0.6 %; Hematocrit 42.5 % (37.0-47.0); Hemoglobin 14.3 g/dL (11.5-15.3); Lymphocytes # 2.2 10^3/uL (0.8-4.8); Lymphocytes % 41.3 %; Mean Corpuscular HGB Conc 33.6 g/dL (30.0-36.0); Mean Corpuscular Hemoglobin 35.4 pg (28.0-34.0); Mean Corpuscular Volume 105.2 fL (81-99); Mean Platelet Volume 9.7 fL (7.4-10.4); Monocytes # 0.3 10^3/uL (0.2-0.9); Monocytes % 6.5 %; Neutrophils # 2.66 10^3/uL (1.8-7.7); Neutrophils % 50.6 %; Nucleated Red Blood Cells % 0 %; Platelet Count 119 10^3/cmm (130-400); Red Blood Count 4.04 10^6/uL (4.1-5.3); Red Cell Distribution Width 18.8 % (12.1-15.1); White Blood Count 5.3 10^3/uL (4.0-10.0)
[2020-08-10 15:40] LABS: HCG, Serum Qual Negative (Negative)
[2020-08-10 15:46] LABS: Alanine Aminotransferase 129 U/L (0-33); Albumin Level 4.3 g/dL (3.5-5.2); Alkaline Phosphatase 79 IU/L (35-105); Anion Gap 21.5 (5-19); Aspartate Amino Transferase 232 U/L (0-32); Blood Urea Nitrogen 5 mg/dL (6-20); Calcium 7.8 mg/dL (8.5-10.5); Carbon Dioxide 26 mmol/L (22-29); Chloride 96 mmol/L (98-107); Globulin 3.3 g/dL (1.3-4.6); Glomerular Filtration Rate 116.6 mL/min (90-130); Glucose 83 mg/dL (65-115); Osmolality Calculated 286 mOsm/kg (285-295); Potassium 3.5 mmol/L (3.5-5.1); Sodium 140 mmol/L (136-145); Total Bilirubin 0.8 mg/dL (0.15-1.2); Total Protein 7.6 g/dL (6.6-8.7)
--- NOTE | 2020-08-10 17:04 | ED_ITS ---
HPI - Nausea/Vomiting/Diarrhea General: Chief complaint: Nausea/Vomiting/Diarrhea Stated complaint: Abd pain, N/V Time Seen by Provider: 08/10/20 17:02 History of Present Illness: HPI Narrative: Patient is a 30-year-old female comes to the ED with nausea, diarrhea, vomiting and abdominal pain. Patient says symptoms have been going on for approximately 1 week.Pain is located in the low lower abdomen and there is no localized tenderness. She says she is having acid reflux as well. Denies any vaginal bleeding, fever, chills, nausea/vomiting, bladder symptoms. Associated nausea: Yes Associated symtoms: Reports nausea; Denies change in vision, chest pain, dysuria, fatigue, headache(s) or palpitations Review of Systems Const: Denies: fever(s), chills or fatigue Eyes: Denies: change in vision or eye discomfort ENMT: Denies: throat pain, odynophagia, nasal discharge or nasal congestion Card: Denies: chest pain, palpitations, edema, swelling of feet/ankles, dyspnea on exertion or orthopnea Resp: Denies: dyspnea, productive cough or non-productive cough GI: Reports: abdominal pain, nausea, vomiting, heartburn and diarrhea; Denies: constipation or hematochezia : Denies: flank pain, dysuria or hematuria Musc: Denies: neck pain, back pain or extremity swelling Skin/Breast: Denies: rash or new lesions Neuro: Denies: headache(s), numbness in extremities or weakness in extremities PFSH ED PFSH: Medical History Alcohol abuse with alcohol-induced mood disorder COPD (chronic obstructive pulmonary disease) Essential (primary) hypertension not on any chronic treatment 09/26 Family history of alpha 1 antitrypsin deficiency Fibromyalgia Generalized anxiety disorder H/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, includes meth, heroin, others, on buprenorphine Hepatitis C antibody positive in blood Hx of abscess of skin and subcutaneous tissue right arm Major depressive disorder, recurrent, moderate Nontoxic thyroid nodule Opioid abuse Polycystic ovarian syndrome polycystic ovaries not notated on CT abdomen/pelvis 01/26 Tobacco dependency Unspecified asthma, uncomplicated onset in childhood Surgical History Hx of cholecystectomy Family History Other Qivgs-1-pmnmebuhhfd deficiency Drug abuse, amphetamine type Hypertension Social History Smoking and tobacco status: current every day smoker cigarettes Packs smoked per day: 1.5 Years cigarettes smoked: 15 Quit status (tobacco): considering quitting Second hand smoke exposure: Yes Smoking risk assessment/counseling performed?: Yes Alcohol intake: current Alcohol intake frequency: 3 or more drinks per day Alcohol type: hard liquor Desire information about alcohol rehabilitation?: Yes Counseling given: No Desire information about substance/drug rehabilitation?: No Counseling given: No Other details last substance use: Has used methamphetamine, heroin, pain med ications. Adopted: No Caregiver/support person: No Lives independently: Yes Household members: friend(s) Housing: Manufactured/Mobile home Marital status: Single Number of children: 2 service: No Current occupational status: unemployed History of recent travel: No Current gender identity: Female Female Reproductive History: Date of last menstrual period: 06/09/20 Para: 2 Physical Exam Const: COMMON NORMALS: no acute distress, patient oriented x3 and alert GENERAL APPEARANCE: cooperative and comfortable HENMT: COMMON NORMALS: normocephalic HEAD & SCALP: normocephalic MOUTH: Normal oral and palatal mucosa present THROAT: posterior oropharynx normal and uvula midline Neck/C-Spine: COMMON NORMALS: supple GENERAL: Yes normal visual inspection Resp: COMMON NORMALS: normal respiratory effort, No retractions, No use of accessory muscles and clear to auscultation bilaterally AUSCULTATION: clear to auscultation bilaterally Cardio: COMMON NORMALS: regular rate, regular rhythm, S1 normal heart sound present, S2 normal heart sound present, No gallops present (Cardio), No clicks present (Cardio), No murmurs present (Cardio) and Peripheral pulses 2+ throughout RATE: regular rate RHYTHM: regular rhythm HEART SOUNDS: S1 normal heart sound present and S2 normal heart sound present PERIPHERAL PULSES: Peripheral pulses 2+ throughout GI: COMMON NORMALS: Normal to inspection, nondistended, normoactive bowel sounds present, Soft to palpation and no masses PALPATION: Yes Soft to palpation and Yes Tenderness to palpation present (GI) (Generalized lower abdominal tenderness. No localized point tenderness.) : COMMON NORMALS: Yes no CVA tenderness BLADDER/KIDNEY EXAM: Yes no CVA tenderness Back/Pelvis: COMMON NORMALS: no CVA tenderness Extremity: COMMON NORMALS: normal to inspection Neuro: COMMON NORMALS: patient oriented x3 and moves all extremities SENSORIUM/ORIENTATION: Yes alert Skin: GENERAL SKIN EXAM: dry skin Course Vital Signs: Vital signs: Vital Signs Temperature 99.2 F 08/10/20 12:51 Pulse Rate 93 08/10/20 19:38 Respiratory Rate 20 H 08/10/20 19:38 Blood Pressure 151/93 08/10/20 19:38 Pulse Oximetry 93 08/10/20 19:38 MDM - Nausea/Vomiting/Diarrhea MDM Narrative: Medical decision making narrative: Patient is a 30-year-old female who comes to the ED with abdominal pain, nausea/vomiting and diarrhea. Patient appears nontoxic and is in no acute distress or pain. She has no localized or focal point tenderness in the abdomen. She does have some generalized lower abdominal tenderness upon exam. CBC, UA and CMP were unremarkable. CT of abdomen showed no acute findings and noted a fatty liver. Patient was given IV fluids, Zofran did morphine and her pain and symptoms improved. Patient was diagnosed with abdominal pain, acid reflux and nausea vomiting. She was discharged home with a prescription for Dicyclomine, Zofran and Pepcid. Return to ED precautions given. Follow-up with PCP in 7 to 10 days reevaluation. Patient understood and agreed with plan. Lab Data: Attestation: I reviewed the patient's lab results. Labs: Lab Results 08/10/20 08/10/20 08/10/20 Range/Units 15:08 15:08 15:08 WBC 5.3 (4.0-10.0) 10^3/ uL RBC 4.04 L (4.1-5.3) 10^6/u L Hgb 14.3 (11.5-15.3) g/dL Hct 42.5 (37.0-47.0) % MCV 105.2 H (81-99) fL MCH 35.4 H (28.0-34.0) pg MCHC 33.6 (30.0-36.0) g/dL RDW 18.8 H (12.1-15.1) % Plt Count 119 L (130-400) 10^3/c mm MPV 9.7 (7.4-10.4) fL Neut % (Auto) 50.6 % Lymph % (Auto) 41.3 % [place] % (Auto) 6.5 % Eos % (Auto) 0.6 % Baso % (Auto) 0.8 % Neut # (Auto) 2.66 (1.8-7.7) 10^3/u L Lymph # (Auto) 2.2 (0.8-4.8) 10^3/u L [place] # (Auto) 0.3 (0.2-0.9) 10^3/u L Eos # (Auto) 0.0 (0.0-0.8) 10^3/u L Baso # (Auto) 0.0 (0.0-0.1) 10^3/u L Nucleated RBC % (a uto) 0 % Nucleated RBCs # 0.0 /100WBC Sodium 140 (136-145) mmol/L Potassium 3.5 (3.5-5.1) mmol/L Chloride 96 L (98-107) mmol/L Carbon Dioxide 26 (22-29) mmol/L Anion Gap 21.5 H (5-19) BUN 5 L (6-20) mg/dL Creatinine 0.6 (0.5-0.9) mg/dL GFR Calculation 116.6 (90-130) mL/min Glucose 83 (65-115) mg/dL Calculated Osmolal ity 286 (285-295) mOsm/k g Calcium 7.8 L (8.5-10.5) mg/dL Total Bilirubin 0.8 (0.15-1.2) mg/dL AST 232 H (0-32) U/L ALT 129 H (0-33) U/L Alkaline Phosphata se 79 (35-105) IU/L Total Protein 7.6 (6.6-8.7) g/dL Albumin 4.3 (3.5-5.2) g/dL Globulin 3.3 (1.3-4.6) g/dL HCG, Qual Negative (Negative) Urine Color (Yellow) Urine Appearance (CLEAR) Urine pH (5-7) Ur Specific Gravit y (1.005-1.030) Urine Protein (Negative) Urine Glucose (UA) (Normal) Urine Ketones (Negative) Urine Blood (Negative) Urine Nitrate (Negative) Urine Bilirubin (Negative) Urine Urobilinogen (Negative) mg/dL Ur Leukocyte Louisa ase (Negative) Urine RBC (0-2) /hpf Urine WBC (0-5) /hpf Ur Squamous Epith Cells (0-5) /hpf Amorphous Sediment Urine Bacteria (NONE) /hpf 08/10/20 Range/Units 17:20 WBC (4.0-10.0) 10^3/ uL RBC (4.1-5.3) 10^6/u L Hgb (11.5-15.3) g/dL Hct (37.0-47.0) % MCV (81-99) fL MCH (28.0-34.0) pg MCHC (30.0-36.0) g/dL RDW (12.1-15.1) % Plt Count (130-400) 10^3/c mm MPV (7.4-10.4) fL Neut % (Auto) % Lymph % (Auto) % [place] % (Auto) % Eos % (Auto) % Baso % (Auto) % Neut # (Auto) (1.8-7.7) 10^3/u L Lymph # (Auto) (0.8-4.8) 10^3/u L [place] # (Auto) (0.2-0.9) 10^3/u L Eos # (Auto) (0.0-0.8) 10^3/u L Baso # (Auto) (0.0-0.1) 10^3/u L Nucleated RBC % (a uto) % Nucleated RBCs # /100WBC Sodium (136-145) mmol/L Potassium (3.5-5.1) mmol/L Chloride (98-107) mmol/L Carbon Dioxide (22-29) mmol/L Anion Gap (5-19) BUN (6-20) mg/dL Creatinine (0.5-0.9) mg/dL GFR Calculation (90-130) mL/min Glucose (65-115) mg/dL Calculated Osmolal ity (285-295) mOsm/k g Calcium (8.5-10.5) mg/dL Total Bilirubin (0.15-1.2) mg/dL AST (0-32) U/L ALT (0-33) U/L Alkaline Phosphata se (35-105) IU/L Total Protein (6.6-8.7) g/dL Albumin (3.5-5.2) g/dL Globulin (1.3-4.6) g/dL HCG, Qual (Negative) Urine Color [place] (Yellow) Urine Appearance Cloudy (CLEAR) Urine pH 6 (5-7) Ur Specific Gravit y 1.015 (1.005-1.030) Urine Protein 1+ H (Negative) Urine Glucose (UA) Norm (Normal) Urine Ketones 1+ H (Negative) Urine Blood Neg (Negative) Urine Nitrate Negative (Negative) Urine Bilirubin 1+ H (Negative) Urine Urobilinogen 1 H (Negative) mg/dL Ur Leukocyte [place] Negative (Negative) Urine RBC 0-4 H (0-2) /hpf Urine WBC None (0-5) /hpf Ur Squamous Epith Cells 10-15 H (0-5) /hpf Amorphous Sediment Not Reportable Urine Bacteria Trace (NONE) /hpf Imaging Data^: CT Abd/Pel: Attestation: I personally reviewed and interpreted this imaging study as follows: Radiologist's impression: [employer] [facility] [id number] Scan ReportSigned Patient: Wendy De La Cruz #: [id number]: [id number]#:[id number]/Sex: Date: 08/10/20Loc: ERRoom/Bed:Attending Dr: Ordering Provider/Ordering MD: Mayo Patel Date of Service: 08/10/20 Procedure(s): CT abdomen pelvis w con* [id number] Accession Number(s): [id number] Report Number: [id number] PROCEDURE INFORMATION: Exam: CT Abdomen And Pelvis With Contrast Exam date and time: 08/10/2020 6:21 PM Age: 30 years old Clinical indication: Abdominal pain; Localized; Other: Central; Prior surgery; Surgery type: Gb; Additional info: Abdom pain, n/v/diarrhea TECHNIQUE: Imaging protocol: Computed tomography of the abdomen and pelvis with contrast. Radiation optimization: All CT scans at this facility use at least one of these dose optimization techniques: automated exposure control; mA and/or kV adjustment per patient size (includes targeted exams where dose is matched to clinical indication); or iterative reconstruction. Contrast material: OMNI 300; Contrast volume: 95 ml; Contrast route: INTRAVENOUS (IV); COMPARISON: CT chest abd pel w con* 03/03/2020 9:53 PM RADIATION DOSE METRICS: Total DLP (mGy-cm): 1839.81 FINDINGS: Liver: Steatosis changes of the liver diffusely. No focal liver mass. Gallbladder and bile ducts: Cholecystectomy. Nondilated biliary system. Pancreas: Normal. No ductal dilation. Spleen: Normal. No splenomegaly. Adrenal glands: Normal. No mass. Kidneys and ureters: Normal. No hydronephrosis. Stomach and bowel: Unremarkable. No obstruction. No mucosal thickening. Appendix: Appendix is not seen and may be absent; correlate with surgical history. Intraperitoneal space: Unremarkable. No free air. No significant fluid collection. Vasculature: Unremarkable. No abdominal aortic aneurysm. Lymph nodes: Unremarkable. No enlarged lymph nodes. Urinary bladder: Unremarkable as visualized. Reproductive: Unremarkable as visualized. Bones/joints: Unremarkable. No acute fracture. Soft tissues: Unremarkable. CT/CT abdomen pelvis w con* [id number] IMPRESSION: 1. Negative for focal acute pathology in the abdomen or pelvis. 2. Diffuse steatosis changes of the liver. Radiation Dose CTDIVOL = (mGy): DLP = 1839.81 (mGy-cm) Dictated By:Inez Arreguin By:Inez Arreguin Date/Time:08/10/201839DD/ 39 Discharge Plan Discharge Patient Disposition: Home Clinical Impression: Abdominal cramping Nausea & vomiting Qualifiers: Vomiting type: unspecified Vomiting Intractability: non-intractable Qualified Code(s): R11.2 - Nausea with vomiting, unspecified Acid reflux disease Qualifiers: Esophagitis presence: esophagitis presence not specified Qualified Code(s): K21.9 - Gastro-esophageal reflux disease without esophagitis Condition: Stable Prescriptions: New Zofran 4 mg tablet 4 mg PO Q8H Qty: 12 RF: 0 dicyclomine 20 mg tablet 20 mg PO QID Qty: 20 RF: 0 Pepcid 20 mg tablet 20 mg PO BID Qty: 60 RF: 0 No Action albuterol sulfate [ProAir HFA] 90 mcg/actuation HFA aerosol inhaler 2 puff inhalation QID PRN (Reason: shortness of breath or wheezing) 30 Days Qty: 6.7 RF: 2 fluticasone propion-salmeterol [Advair Diskus] 250-50 mcg/dose blister with device 1 inh inhalation BID Qty: 60 RF: 2 folic acid 1 mg tablet 1 mg PO DAILY 30 Days Qty: 30 RF: 2 metformin 500 mg tablet extended release 24hr 1,000 mg PO DAILY 30 Days Qty: 60 RF: 2 prazosin 1 mg capsule 1 mg PO BEDTIME 30 Days Qty: 30 RF: 2 trazodone 100 mg tablet 100 mg PO BEDTIME 30 Days Qty: 30 RF: 2 naltrexone 50 mg tablet 50 mg PO DAILY Qty: 30 RF: 0 lisinopril-hydrochlorothiazide 10-12.5 mg tablet 1 tab PO DAILY Qty: 30 RF: 0 venlafaxine [Effexor XR] 75 mg capsule,extended release 24hr 75 mg PO QAM Qty: 30 RF: 2 lorazepam [Ativan] 1 mg tablet 1 mg PO BID Qty: 14 RF: 3 ondansetron HCl [Zofran] 4 mg tablet 4 mg PO Q12H PRN (Reason: nausea ) Qty: 14 RF: 0 potassium chloride 10 mEq capsule, extended release 10 meq PO DAILY Qty: 30 RF: 2 nicotine 21 mg/24 hr Patch 24 Hour 1 patch transdermal DAILY 28 Days Qty: 28 RF: 1 (DME) nebulizer accessories Kit See Rx Instructions .ROUTE .MEDSUPPLY Qty: 1 RF: 0 thiamine mononitrate (vit B1) [Vitamin B-1 (mononitrate)] 100 mg Tablet 100 mg PO DAILY 30 Days Qty: 30 RF: 1 multivitamin with folic acid [Thera] 400 mcg Tablet 1 tab PO DAILY 30 Days Qty: 30 RF: 1 epinephrine [EpiPen 2-Gerardo] 0.3 mg/0.3 mL auto-injector 0.3 mg IM Q10M PRN (Reason: anaphylaxis) 30 Days Qty: 2 RF: 1 Discharge Orders: Discharge ED (Routine); Ordered 08/10/20 Ordered By: Mayo Patel Referrals: David Villar, [facility] INSTALLER[facility] [Primary Care Provider] - Discharge Diet: Advance as tolerated Discharge Activity: Increase activity as tolerated Patient Instructions: Gastroesophageal Reflux Disease (ED), Abdominal Pain (ED) Activity Restrictions/Additional Instructions: Follow-up with medical provider as directed in 7 to 10 days for reevaluation. Take medications as prescribed. Bentyl is a med that helps with abdominal cramping so take as needed for abdominal cramping pain. Drink plenty of fluids and stay hydrated. Return to the ER or your medical provider if condition worsens. Please read and understand discharge instructions. Thank you for choosing [facility] for your healthcare needs today. Please realize this is an emergency room and that we are providing you with a medical screening exam and this may not be complete and all inclusive of all the testing and or work up that you may need to determine your ailment or severity of your illness. It is very important that you follow up as instructed or that you return to the Emergency Department should you have concerns or if your condition changes or worsens in any way. Coding Level of Care Code ED Wind Turbine Installer for Bartolo Lund Exam Comprehensive
[2020-08-10] MEDS: lidocaine 2% viscous 15 ML, aluminum-mag hydrox-simethicon 30 ML, sucralfate oral liq 1 GM PO (17:42)
[2020-08-10] MEDS: sodium chloride 0.9% 1,000 ML 999 ML IV (17:44)
[2020-08-10] MEDS: ondansetron 2 mg/ML SDV 2 mL 4 MG IVP (17:44)
[2020-08-10] MEDS: ketorolac 30 mg/mL INJ IVP (17:44)
[2020-08-10 18:02] LABS: Bilirubin Urine 1+ (Negative); Blood Urine Neg (Negative); Glucose Urine UA Norm (Normal); Ketones Urine 1+ (Negative); Nitrate Urine Negative (Negative); Protein Urine 1+ (Negative); Specific Gravity, Urine 1.015 (1.005-1.030); Urine Appearance Cloudy (CLEAR); Urine Color Orange (Yellow); Urobilinogen Urine 1 mg/dL (Negative); pH Urine 6 (5-7)
[2020-08-10 18:03] LABS: Add Urine Culture? No; Add Urine Microscopic? YES; Bacteria Urine TRACE /hpf; Leukocyte Esterase Urine Negative (Negative); RBC Urine 0-4 /hpf (0-2)
--- NOTE | 2020-08-10 18:07 | CTR_ITS ---
PROCEDURE INFORMATION: Exam: CT Abdomen And Pelvis With Contrast Exam date and time: 08/10/2020 6:21 PM Age: 30 years old Clinical indication: Abdominal pain; Localized; Other: Central; Prior surgery; Surgery type: Gb; Additional info: Abdom pain, n/v/diarrhea TECHNIQUE: Imaging protocol: Computed tomography of the abdomen and pelvis with contrast. Radiation optimization: All CT scans at this facility use at least one of these dose optimization techniques: automated exposure control; mA and/or kV adjustment per patient size (includes targeted exams where dose is matched to clinical indication); or iterative reconstruction. Contrast material: OMNI 300; Contrast volume: 95 ml; Contrast route: INTRAVENOUS (IV); COMPARISON: CT chest abd pel w con* 03/03/2020 9:53 PM RADIATION DOSE METRICS: Total DLP (mGy-cm): 1839.81 FINDINGS: Liver: Steatosis changes of the liver diffusely. No focal liver mass. Gallbladder and bile ducts: Cholecystectomy. Nondilated biliary system. Pancreas: Normal. No ductal dilation. Spleen: Normal. No splenomegaly. Adrenal glands: Normal. No mass. Kidneys and ureters: Normal. No hydronephrosis. Stomach and bowel: Unremarkable. No obstruction. No mucosal thickening. Appendix: Appendix is not seen and may be absent; correlate with surgical history. Intraperitoneal space: Unremarkable. No free air. No significant fluid collection. Vasculature: Unremarkable. No abdominal aortic aneurysm. Lymph nodes: Unremarkable. No enlarged lymph nodes. Urinary bladder: Unremarkable as visualized. Reproductive: Unremarkable as visualized. Bones/joints: Unremarkable. No acute fracture. Soft tissues: Unremarkable. CT/CT abdomen pelvis w con* [id number] IMPRESSION: 1. Negative for focal acute pathology in the abdomen or pelvis. 2. Diffuse steatosis changes of the liver. Radiation Dose CTDIVOL = (mGy): DLP = 1839.81 (mGy-cm)
[2020-08-10] MEDS: iohexol 300 mg/mL 100 mL Btl IV (18:20)
[2020-08-10 18:59] VITALS: RESP 18
[2020-08-10] MEDS: morphine 4 mg/mL SDV 1 mL IVP (18:59)
[2020-08-10 19:38] VITALS: BP 151/93; PULSE 93; RESP 20; O2SAT 93
== END 2020-08-10 19:42 | disposition home or self-care (01) ==
PROVIDERS: Family Medicine; Emergency Provider Physician Assistant; PCP Nurse Practitioner
DX: R10.9 Unspecified abdominal pain (principal); R11.2 Nausea with vomiting, unspecified; K21.9 Gastro-esophageal reflux disease without esophagitis; Z79.84 Long term (current) use of oral hypoglycemic drugs
CPT/HCPCS: 36415; 74177; 80053; 81001; 84703; 85025; 96361; 96374; 96375; 99284; J1885; J2270; J2405; J7030; Q9967

== ENCOUNTER 2020-08-11 23:33 | Emergency (ER) | payer MEDICAID, SELFPAY ==
[2020-08-11 23:40] VITALS: BP 148/97; PULSE 115; RESP 17; TEMP 36.7; O2SAT 98; BMI 60.0
[2020-08-11 23:45] VITALS: PULSE 105; RESP 15; O2SAT 95
--- NOTE | 2020-08-12 00:33 | W.ED.ALCOHOL ---
Documented by User: KAILASH Boyer 08/12/20 01:47 HPI - Alcohol General: Chief Complaint: Alcohol Stated Complaint: ABD PAIN Time Seen by Provider: 08/11/20 23:48 History of Present Illness: HPI narrative: Patient came in today under the influence of alcohol. Patient makes some complaints of abdominal discomfort. Patient reports episodes of vomiting. Patient's has a history of alcoholism and hepatitis C. patient was evaluated yesterday for her abdominal pain and no acute problems was noted. Associated symptoms: Reports abdominal pain Review of Systems General: Reports: 10 or more systems reviewed and unremarkable except in HPI and below GI: Reports: abdominal pain PFSH ED PFSH: Medical History Alcohol abuse with alcohol-induced mood disorder COPD (chronic obstructive pulmonary disease) Essential (primary) hypertension not on any chronic treatment 09/26 Family history of alpha 1 antitrypsin deficiency Fibromyalgia Generalized anxiety disorder H/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, includes meth, heroin, others, on buprenorphine Hepatitis C antibody positive in blood Hx of abscess of skin and subcutaneous tissue right arm Major depressive disorder, recurrent, moderate Nontoxic thyroid nodule Opioid abuse Polycystic ovarian syndrome polycystic ovaries not notated on CT abdomen/pelvis 01/26 Tobacco dependency Unspecified asthma, uncomplicated onset in childhood Surgical History Hx of cholecystectomy Family History Other [id number] deficiency Drug abuse, amphetamine type Hypertension Social History Smoking and tobacco status: current every day smoker cigarettes Packs smoked per day: 1.5 Years cigarettes smoked: 15 Quit status (tobacco): considering quitting Second hand smoke exposure: Yes Smoking risk assessment/counseling performed?: Yes Alcohol intake: current Alcohol intake frequency: 3 or more drinks per day Alcohol type: hard liquor Desire information about alcohol rehabilitation?: Yes Counseling given: No Desire information about substance/drug rehabilitation?: No Counseling given: No Other details last substance use: Has used methamphetamine, heroin, pain medications. Adopted: No Caregiver/support person: No Lives independently: Yes Household members: friend(s) Housing: Manufactured/Mobile home Marital status: Single Number of children: 2 service: No Current occupational status: unemployed History of recent travel: No Current gender identity: Female Female Reproductive History: Date of last menstrual period: 06/09/20 Para: 2 Physical Exam Const: COMMON NORMALS: no acute distress and patient oriented x3 GENERAL APPEARANCE: cooperative HENMT: COMMON NORMALS: normocephalic and Normal external nose present HEAD & SCALP: normal to inspection and normocephalic NOSE: Normal external nose present MOUTH: Normal oral and palatal mucosa present Eye: GENERAL EYE: appearance normal, both eyes and all related structures Neck/C-Spine: COMMON NORMALS: full ROM Lymph: LYMPHATIC: no lymphadenopathy noted Chest: COMMONS NORMALS: normal inspection of the chest Resp: COMMON NORMALS: normal respiratory effort EFFORT & INSPECTION: Yes able to speak in complete sentences Cardio: COMMON NORMALS: regular rate and regular rhythm RATE: regular rate RHYTHM: regular rhythm GI: COMMON NORMALS: Soft to palpation and non-tender PALPATION: Yes Soft to palpation Back/Pelvis: COMMON NORMALS: thoracic and lumbar spine normal to inspection Extremity: COMMON NORMALS: normal to inspection Neuro: COMMON NORMALS: patient oriented x3 and moves all extremities Psych: COMMON NORMALS: mental status grossly normal and cooperative Skin: COMMON NORMALS: no rashes or lesions noted GENERAL SKIN EXAM: no rashes or lesions noted Course ED course: 145, reviewed with Dr. Martinez who will assume care of patient at the end of my shift at 3:00 AM. Patient is resting. Patient has a elevated blood alcohol level at 580. Patient is alert and responds to questioning well. Plan is to monitor patient with discharge as she becomes more sober. Vital Signs: Vital signs: Vital Signs Temperature 98.0 F 08/12/20 06:47 Pulse Rate 70 08/12/20 06:47 Respiratory Rate 18 08/12/20 06:47 Blood Pressure 145/90 08/12/20 06:47 Pulse Oximetry 95 08/12/20 06:47 MDM - Alcohol MDM Narrative: Medical decision making narrative: 30-year-old female comes in today with complaints of abdominal pain and alcohol intoxication. On exam abdomen is soft nontender to palpation. Respirations are even lungs were clear to auscultation. Patient was under the influence of a substance. Differential diagnosis includes but not limited to substance abuse, dehydration, alcoholic gastritis. Believe patient probably has alcoholic gastritis due to her chronic substance abuse to alcohol. Patient did have a full work-up yesterday with a CT scan and no acute abdominal problems were noted. Recommended that patient follow-up with primary care for further treatment and encourage patient to decrease alcohol consumption. Lab Data: Labs: Lab Results 08/12/20 08/12/20 08/12/20 Range/Units 00:40 00:40 05:02 WBC 6.6 (4.0-10.0) 10^3/ uL RBC 4.25 (4.1-5.3) 10^6/u L Hgb 15.1 (11.5-15.3) g/dL Hct 43.6 (37.0-47.0) % MCV 102.6 H (81-99) fL MCH 35.5 H (28.0-34.0) pg MCHC 34.6 (30.0-36.0) g/dL RDW 18.4 H (12.1-15.1) % Plt Count 131 (130-400) 10^3/c mm MPV 10.6 H (7.4-10.4) fL Neut % (Auto) 41.0 % Lymph % (Auto) 51.4 % [place] % (Auto) 5.2 % Eos % (Auto) 1.2 % Baso % (Auto) 0.9 % Neut # (Auto) 2.69 (1.8-7.7) 10^3/u L Lymph # (Auto) 3.4 (0.8-4.8) 10^3/u L [place] # (Auto) 0.3 (0.2-0.9) 10^3/u L Eos # (Auto) 0.1 (0.0-0.8) 10^3/u L Baso # (Auto) 0.1 (0.0-0.1) 10^3/u L Nucleated RBC % (a uto) 0 % Nucleated RBCs # 0.0 /100WBC Sodium 142 (136-145) mmol/L Potassium 3.1 L (3.5-5.1) mmol/L Chloride 100 (98-107) mmol/L Carbon Dioxide 22 (22-29) mmol/L Anion Gap 23.1 H (5-19) BUN 3 L (6-20) mg/dL Creatinine 0.7 (0.5-0.9) mg/dL GFR Calculation 97.6 (90-130) mL/min Glucose 96 (65-115) mg/dL Calculated Osmolal ity 290 (285-295) mOsm/k g Calcium 7.9 L (8.5-10.5) mg/dL Total Bilirubin 0.6 (0.15-1.2) mg/dL AST 148 H (0-32) U/L ALT 87 H (0-33) U/L Alkaline Phosphata se 73 (35-105) IU/L Total Protein 7.5 (6.6-8.7) g/dL Albumin 4.0 (3.5-5.2) g/dL Globulin 3.5 (1.3-4.6) g/dL Ethyl Alcohol 578 H* 485 H* (0-10) mg/dL Discharge Plan Discharge Patient Disposition: Home Clinical Impression: Alcoholic intoxication Qualifiers: Complication of substance-induced condition: uncomplicated Qualified Code(s): F10.920 - Alcohol use, unspecified with intoxication, uncomplicated Condition: Stable Prescriptions: No Action albuterol sulfate [ProAir HFA] 90 mcg/actuation HFA aerosol inhaler 2 puff inhalation QID PRN (Reason: shortness of breath or wheezing) 30 Days Qty: 6.7 RF: 2 fluticasone propion-salmeterol [Advair Diskus] 250-50 mcg/dose blister with device 1 inh inhalation BID Qty: 60 RF: 2 folic acid 1 mg tablet 1 mg PO DAILY 30 Days Qty: 30 RF: 2 metformin 500 mg tablet extended release 24hr 1,000 mg PO DAILY 30 Days Qty: 60 RF: 2 prazosin 1 mg capsule 1 mg PO BEDTIME 30 Days Qty: 30 RF: 2 trazodone 100 mg tablet 100 mg PO BEDTIME 30 Days Qty: 30 RF: 2 naltrexone 50 mg tablet 50 mg PO DAILY Qty: 30 RF: 0 lisinopril-hydrochlorothiazide 10-12.5 mg tablet 1 tab PO DAILY Qty: 30 RF: 0 venlafaxine [Effexor XR] 75 mg capsule,extended release 24hr 75 mg PO QAM Qty: 30 RF: 2 lorazepam [Ativan] 1 mg tablet 1 mg PO BID Qty: 14 RF: 3 ondansetron HCl [Zofran] 4 mg tablet 4 mg PO Q12H PRN (Reason: nausea ) Qty: 14 RF: 0 potassium chloride 10 mEq capsule, extended release 10 meq PO DAILY Qty: 30 RF: 2 nicotine 21 mg/24 hr Patch 24 Hour 1 patch transdermal DAILY 28 Days Qty: 28 RF: 1 (DME) nebulizer accessories Kit See Rx Instructions .ROUTE .MEDSUPPLY Qty: 1 RF: 0 thiamine mononitrate (vit B1) [Vitamin B-1 (mononitrate)] 100 mg Tablet 100 mg PO DAILY 30 Days Qty: 30 RF: 1 multivitamin with folic acid [Thera] 400 mcg Tablet 1 tab PO DAILY 30 Days Qty: 30 RF: 1 Zofran 4 mg tablet 4 mg PO Q8H Qty: 12 RF: 0 dicyclomine 20 mg tablet 20 mg PO QID Qty: 20 RF: 0 Pepcid 20 mg tablet 20 mg PO BID Qty: 60 RF: 0 epinephrine [EpiPen 2-Gerardo] 0.3 mg/0.3 mL auto-injector 0.3 mg IM Q10M PRN (Reason: anaphylaxis) 30 Days Qty: 2 RF: 1 Discharge Orders: Discharge ED (Routine); Ordered 08/12/20 Ordered By: Ray Martinez Referrals: David Villar, [facility] [Primary Care Provider] - Patient Instructions: Alcohol Intoxication (ED) Activity Restrictions/Additional Instructions: Avoid alcohol. Return for any thoughts or wishes to harm your self or anyone else. Coding Level of Care Code ED Reverser for Chg Fwd Exam Comprehensive Documented by User: Ray Martinez, 08/12/20 17:11 HPI - Alcohol General: Chief Complaint: Alcohol Stated Complaint: ABD PAIN Time Seen by Provider: 08/11/20 23:48 PFSH ED PFSH: Medical History Alcohol abuse with alcohol-induced mood disorder COPD (chronic obstructive pulmonary disease) Essential (primary) hypertension not on any chronic treatment 09/26 Family history of alpha 1 antitrypsin deficiency Fibromyalgia Generalized anxiety disorder H/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, includes meth, heroin, others, on buprenorphine Hepatitis C antibody positive in blood Hx of abscess of skin and subcutaneous tissue right arm Major depressive disorder, recurrent, moderate Nontoxic thyroid nodule Opioid abuse Polycystic ovarian syndrome polycystic ovaries not notated on CT abdomen/pelvis 01/26 Tobacco dependency Unspecified asthma, uncomplicated onset in childhood Surgical History Hx of cholecystectomy Family History Other Ynblj-7-obcnjetazdb deficiency Drug abuse, amphetamine type Hypertension Social History Smoking and tobacco status: current every day smoker cigarettes Packs smoked per day: 1.5 Years cigarettes smoked: 15 Quit status (tobacco): considering quitting Second hand smoke exposure: Yes Smoking risk assessment/counseling performed?: Yes Alcohol intake: current Alcohol intake frequency: 3 or more drinks per day Alcohol type: hard liquor Desire information about alcohol rehabilitation?: Yes Counseling given: No Desire information about substance/drug rehabilitation?: No Counseling given: No Other details last substance use: Has used methamphetamine, heroin, pain medications. Adopted: No Caregiver/support person: No Lives independently: Yes Household members: friend(s) Housing: Manufactured/Mobile home Marital status: Single Number of children: 2 service: No Current occupational status: unemployed History of recent travel: No Current gender identity: Female Course Vital Signs: Vital signs: Vital Signs Temperature 98.0 F 08/12/20 06:47 Pulse Rate 70 08/12/20 06:47 Respiratory Rate 18 08/12/20 06:47 Blood Pressure 145/90 08/12/20 06:47 Pulse Oximetry 95 08/12/20 06:47 MDM - Alcohol MDM Narrative: Medical decision making narrative: Patient originally seen by KAILASH Peace. I agree with his history, evaluation, and work-up. This patient is well-known to the ER. She presents intoxicated, not suicidal. She was allowed to rest and sober up. Her alcohol level was coming down appropriately. She was awake and talking, walking in the emergency department. She was allowed discharge. Lab Data: Labs: Lab Results 08/12/20 08/12/20 08/12/20 Range/Units 00:40 00:40 05:02 WBC 6.6 (4.0-10.0) 10^3/ uL RBC 4.25 (4.1-5.3) 10^6/u L Hgb 15.1 (11.5-15.3) g/dL Hct 43.6 (37.0-47.0) % MCV 102.6 H (81-99) fL MCH 35.5 H (28.0-34.0) pg MCHC 34.6 (30.0-36.0) g/dL RDW 18.4 H (12.1-15.1) % Plt Count 131 (130-400) 10^3/c mm MPV 10.6 H (7.4-10.4) fL Neut % (Auto) 41.0 % Lymph % (Auto) 51.4 % [place] % (Auto) 5.2 % Eos % (Auto) 1.2 % Baso % (Auto) 0.9 % Neut # (Auto) 2.69 (1.8-7.7) 10^3/u L Lymph # (Auto) 3.4 (0.8-4.8) 10^3/u L [place] # (Auto) 0.3 (0.2-0.9) 10^3/u L Eos # (Auto) 0.1 (0.0-0.8) 10^3/u L Baso # (Auto) 0.1 (0.0-0.1) 10^3/u L Nucleated RBC % (a uto) 0 % Nucleated RBCs # 0.0 /100WBC Sodium 142 (136-145) mmol/L Potassium 3.1 L (3.5-5.1) mmol/L Chloride 100 (98-107) mmol/L Carbon Dioxide 22 (22-29) mmol/L Anion Gap 23.1 H (5-19) BUN 3 L (6-20) mg/dL Creatinine 0.7 (0.5-0.9) mg/dL GFR Calculation 97.6 (90-130) mL/min Glucose 96 (65-115) mg/dL Calculated Osmolal ity 290 (285-295) mOsm/k g Calcium 7.9 L (8.5-10.5) mg/dL Total Bilirubin 0.6 (0.15-1.2) mg/dL AST 148 H (0-32) U/L ALT 87 H (0-33) U/L Alkaline Phosphata se 73 (35-105) IU/L Total Protein 7.5 (6.6-8.7) g/dL Albumin 4.0 (3.5-5.2) g/dL Globulin 3.5 (1.3-4.6) g/dL Ethyl Alcohol 578 H* 485 H* (0-10) mg/dL Discharge Plan Discharge Patient Disposition: Home Clinical Impression: Alcoholic intoxication Qualifiers: Complication of substance-induced condition: uncomplicated Qualified Code(s): F10.920 - Alcohol use, unspecified with intoxication, uncomplicated Condition: Stable Prescriptions: No Action albuterol sulfate [ProAir HFA] 90 mcg/actuation HFA aerosol inhaler 2 puff inhalation QID PRN (Reason: shortness of breath or wheezing) 30 Days Qty: 6.7 RF: 2 fluticasone propion-salmeterol [Advair Diskus] 250-50 mcg/dose blister with device 1 inh inhalation BID Qty: 60 RF: 2 folic acid 1 mg tablet 1 mg PO DAILY 30 Days Qty: 30 RF: 2 metformin 500 mg tablet extended release 24hr 1,000 mg PO DAILY 30 Days Qty: 60 RF: 2 prazosin 1 mg capsule 1 mg PO BEDTIME 30 Days Qty: 30 RF: 2 trazodone 100 mg tablet 100 mg PO BEDTIME 30 Days Qty: 30 RF: 2 naltrexone 50 mg tablet 50 mg PO DAILY Qty: 30 RF: 0 lisinopril-hydrochlorothiazide 10-12.5 mg tablet 1 tab PO DAILY Qty: 30 RF: 0 venlafaxine [Effexor XR] 75 mg capsule,extended release 24hr 75 mg PO QAM Qty: 30 RF: 2 lorazepam [Ativan] 1 mg tablet 1 mg PO BID Qty: 14 RF: 3 ondansetron HCl [Zofran] 4 mg tablet 4 mg PO Q12H PRN (Reason: nausea ) Qty: 14 RF: 0 potassium chloride 10 mEq capsule, extended release 10 meq PO DAILY Qty: 30 RF: 2 nicotine 21 mg/24 hr Patch 24 Hour 1 patch transdermal DAILY 28 Days Qty: 28 RF: 1 (DME) nebulizer accessories Kit See Rx Instructions .ROUTE .MEDSUPPLY Qty: 1 RF: 0 thiamine mononitrate (vit B1) [Vitamin B-1 (mononitrate)] 100 mg Tablet 100 mg PO DAILY 30 Days Qty: 30 RF: 1 multivitamin with folic acid [Thera] 400 mcg Tablet 1 tab PO DAILY 30 Days Qty: 30 RF: 1 Zofran 4 mg tablet 4 mg PO Q8H Qty: 12 RF: 0 dicyclomine 20 mg tablet 20 mg PO QID Qty: 20 RF: 0 Pepcid 20 mg tablet 20 mg PO BID Qty: 60 RF: 0 epinephrine [EpiPen 2-Gerardo] 0.3 mg/0.3 mL auto-injector 0.3 mg IM Q10M PRN (Reason: anaphylaxis) 30 Days Qty: 2 RF: 1 Discharge Orders: Discharge ED (Routine); Ordered 08/12/20 Ordered By: Ray Martinez Referrals: David Villar, [facility] [Primary Care Provider] - Patient Instructions: Alcohol Intoxication (ED) Activity Restrictions/Additional Instructions: Avoid alcohol. Return for any thoughts or wishes to harm your self or anyone else. Coding Level of Care Code ED Reverser for Bartolo Fwcassius Exam Comprehensive
[2020-08-12] MEDS: sodium chloride 0.9% 1,000 ML 999 ML IV (00:47)
[2020-08-12] MEDS: famotidine 20 mg/2 mL INJ 40 MG IVP (00:48)
[2020-08-12] MEDS: ondansetron 2 mg/ML SDV 2 mL 4 MG IVP (00:48)
[2020-08-12 01:07] LABS: Alanine Aminotransferase 87 U/L (0-33); Alkaline Phosphatase 73 IU/L (35-105); Anion Gap 23.1 (5-19); Aspartate Amino Transferase 148 U/L (0-32); Blood Urea Nitrogen 3 mg/dL (6-20); Calcium 7.9 mg/dL (8.5-10.5); Carbon Dioxide 22 mmol/L (22-29); Chloride 100 mmol/L (98-107); Creatinine Clr Calc Pharmacy 177.0696; Globulin 3.5 g/dL (1.3-4.6); Glomerular Filtration Rate 97.6 mL/min (90-130); Glucose 96 mg/dL (65-115); Osmolality Calculated 290 mOsm/kg (285-295); Potassium 3.1 mmol/L (3.5-5.1); Sodium 142 mmol/L (136-145); Total Bilirubin 0.6 mg/dL (0.15-1.2); Total Protein 7.5 g/dL (6.6-8.7)
[2020-08-12 01:08] LABS: Basophils # 0.1 10^3/uL (0.0-0.1); Basophils % 0.9 %; Eosinophils # 0.1 10^3/uL (0.0-0.8); Eosinophils % 1.2 %; Hematocrit 43.6 % (37.0-47.0); Hemoglobin 15.1 g/dL (11.5-15.3); Lymphocytes # 3.4 10^3/uL (0.8-4.8); Lymphocytes % 51.4 %; Mean Corpuscular HGB Conc 34.6 g/dL (30.0-36.0); Mean Corpuscular Hemoglobin 35.5 pg (28.0-34.0); Mean Corpuscular Volume 102.6 fL (81-99); Mean Platelet Volume 10.6 fL (7.4-10.4); Monocytes # 0.3 10^3/uL (0.2-0.9); Monocytes % 5.2 %; Neutrophils # 2.69 10^3/uL (1.8-7.7); Nucleated Red Blood Cells % 0 %; Platelet Count 131 10^3/cmm (130-400); Red Blood Count 4.25 10^6/uL (4.1-5.3); Red Cell Distribution Width 18.4 % (12.1-15.1); White Blood Count 6.6 10^3/uL (4.0-10.0)
[2020-08-12 01:15] LABS: Alcohol Level 578 mg/dL (0-10)
[2020-08-12 01:45] VITALS: PULSE 90; RESP 15; TEMP 36.7; O2SAT 95
[2020-08-12 03:00] VITALS: RESP 18
[2020-08-12 05:00] VITALS: RESP 18; O2SAT 95
[2020-08-12 05:33] LABS: Alcohol Level 485 mg/dL (0-10)
[2020-08-12 06:47] VITALS: BP 145/90; PULSE 70; RESP 18; TEMP 36.7; O2SAT 95
== END 2020-08-12 06:48 | disposition home or self-care (01) ==
PROVIDERS: Nurse Practitioner Family; Emergency Provider Emergency Medicine; PCP Nurse Practitioner
DX: F10.920 Alcohol use, unspecified with intoxication, uncomplicated (principal); F17.210 Nicotine dependence, cigarettes, uncomplicated; F10.10 Alcohol abuse, uncomplicated; I10 Essential (primary) hypertension; R11.10 Vomiting, unspecified; B19.20 Unspecified viral hepatitis C without hepatic coma; F32.9 Major depressive disorder, single episode, unspecified; J45.909 Unspecified asthma, uncomplicated
CPT/HCPCS: 80053; 80307; 85025; 96361; 96374; 96375; 99284; J2405; J3490; J7030

== ENCOUNTER 2020-08-15 18:17 | Emergency (ER) | payer MEDICAID, SELFPAY ==
--- NOTE | 2020-08-15 18:25 | ECG_ITS ---
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 Measurements Intervals [place] Rate: 112 P: FL: QRS: 0 QRSD: 86 T: 47 QT: 332 QTc: 453 Interpretive Statements SINUS TACHYCARDIA Compared to ECG 07/09/2020 16:55:51 NO SIGNIFICANT CHANGES Electronically Signed On 08-15-2020 19:48:07 CDT by Celso Kendall M.D. [id number]
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
[2020-08-15 18:31] VITALS: BP 138/78; PULSE 112; RESP 20; TEMP 36.9; O2SAT 93; BMI 41.1
[2020-08-15 18:42] VITALS: BP 138/78; PULSE 124; RESP 20; O2SAT 93
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
[2020-08-15 19:45] LABS: Amphetamines Screen Urine Negative (Negative); Barbiturates Screen Urine Negative (Negative); Benzodiazepines Screen Urine Negative (Negative); Cocaine Screen Urine Negative (Negative); Opiate Screen Urine Negative (Negative); PCP Screen Urine Negative (Negative); THC Screen Urine Negative (Negative)
[2020-08-15] MEDS: folic acid 1 MG, multivitamin inj 10 ML, thiamine 100 MG in sodium chloride 0.9% 1,000 ML 252.8 MG IV (19:45)
[2020-08-15] MEDS: ondansetron 2 mg/ML SDV 2 mL 4 MG IVP (19:45)
[2020-08-15 20:00] VITALS: BP 144/80; PULSE 106; RESP 18; O2SAT 97
[2020-08-15 20:24] LABS: SARS Covid-2 Antigen Negative (Negative)
[2020-08-15 21:00] VITALS: BP 148/82; PULSE 125; RESP 20; O2SAT 90
[2020-08-15 21:09] LABS: Basophils % 0.5 %; Eosinophils % 0.5 %; Hematocrit 39.5 % (37.0-47.0); Hemoglobin 13.4 g/dL (11.5-15.3); Lymphocytes # 2.3 10^3/uL (0.8-4.8); Lymphocytes % 40.8 %; Mean Corpuscular HGB Conc 33.9 g/dL (30.0-36.0); Mean Corpuscular Hemoglobin 35.6 pg (28.0-34.0); Mean Corpuscular Volume 105.1 fL (81-99); Mean Platelet Volume 10.1 fL (7.4-10.4); Monocytes # 0.4 10^3/uL (0.2-0.9); Monocytes % 7.7 %; Neutrophils # 2.81 10^3/uL (1.8-7.7); Neutrophils % 50.3 %; Nucleated Red Blood Cells % 0 %; Platelet Count 98 10^3/cmm (130-400); Red Blood Count 3.76 10^6/uL (4.1-5.3); Red Cell Distribution Width 18.8 % (12.1-15.1); White Blood Count 5.6 10^3/uL (4.0-10.0)
[2020-08-15 21:27] LABS: Alanine Aminotransferase 57 U/L (0-33); Albumin Level 3.7 g/dL (3.5-5.2); Alkaline Phosphatase 64 IU/L (35-105); Anion Gap 22.1 (5-19); Aspartate Amino Transferase 115 U/L (0-32); Blood Urea Nitrogen 3 mg/dL (6-20); Calcium 7.1 mg/dL (8.5-10.5); Carbon Dioxide 23 mmol/L (22-29); Chloride 98 mmol/L (98-107); Globulin 2.3 g/dL (1.3-4.6); Glomerular Filtration Rate 143.9 mL/min (90-130); Glucose 84 mg/dL (65-115); Lipase 103 U/L (13-60); Osmolality Calculated 286 mOsm/kg (285-295); Potassium 3.1 mmol/L (3.5-5.1); Sodium 140 mmol/L (136-145); Total Bilirubin 0.6 mg/dL (0.15-1.2)
[2020-08-15 21:28] LABS: Alcohol Level 337 mg/dL (0-10); Salicylate < 0.3 mg/dL (3-10)
[2020-08-15 22:53] VITALS: BP 134/90; PULSE 94; RESP 16; O2SAT 97
== END 2020-08-15 23:07 | disposition home or self-care (01) ==
PROVIDERS: Emergency Provider Emergency Medicine
DX: F10.129 Alcohol abuse with intoxication, unspecified (principal); Z79.84 Long term (current) use of oral hypoglycemic drugs; Y90.8 Blood alcohol level of 240 mg/100 ml or more; J44.9 Chronic obstructive pulmonary disease, unspecified; I10 Essential (primary) hypertension; Z86.19 Personal history of other infectious and parasitic diseases; F17.210 Nicotine dependence, cigarettes, uncomplicated
CPT/HCPCS: 36415; 70450; 71045; 71250; 74176; 80053; 80306; 80307; 83690; 85025; 87426; 93005; 96361; 96374; 99284; J2405; J3411; J3490; J7030

== ENCOUNTER 2020-08-16 21:13 | Emergency (ER) | payer MEDICAID, SELFPAY ==
[2020-08-16 22:02] VITALS: BP 122/77; PULSE 106; TEMP 36.9; O2SAT 94
[2020-08-17 00:45] VITALS: BP 160/117; PULSE 112; RESP 20; O2SAT 94
--- NOTE | 2020-08-17 00:58 | PC.NURSE ---
Given warm blanket and given 2 orange juice, ok per MD.
--- NOTE | 2020-08-17 01:17 | W.ED.NAVMDI ---
HPI - Nausea/Vomiting/Diarrhea General: Chief complaint: Nausea/Vomiting/Diarrhea Stated complaint: ETOH Time Seen by Provider: 08/16/20 23:22 Source: patient and EMS Mode of arrival: EMS Limitations: no limitations History of Present Illness: HPI Narrative: 30-year-old female very well-known to the ER and is a chronic alcoholic. Patient states that she has been feeling sick today and has had some nausea and vomiting along with some diarrhea. She states that she is wanting to be placed in detox. She has been drinking today. She has been drinking heavily for years. She denies any worsening improving factors. Associated nausea: Yes Associated symtoms: Reports nausea; Denies chest pain, dysuria or headache(s) Review of Systems Const: Denies: fever(s), chills, body aches or change in appetite Eyes: Denies: blurry vision or eye discomfort ENMT: Denies: throat pain or dental pain Card: Denies: chest pain Resp: Denies: dyspnea GI: Reports: nausea, vomiting and diarrhea : Denies: dysuria Musc: Denies: neck pain or back pain Skin/Breast: Denies: rash Neuro: Denies: headache(s) Psych: Denies: depression Dg/Lymph: Denies: easy bruising All/Imm: Denies: urticaria PFSH ED PFSH: Medical History Alcohol abuse with alcohol-induced mood disorder COPD (chronic obstructive pulmonary disease) Essential (primary) hypertension not on any chronic treatment 09/26 Family history of alpha 1 antitrypsin deficiency Fibromyalgia Generalized anxiety disorder H/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, includes meth, heroin, others, on buprenorphine Hepatitis C antibody positive in blood Hx of abscess of skin and subcutaneous tissue right arm Major depressive disorder, recurrent, moderate Nontoxic thyroid nodule Opioid abuse Polycystic ovarian syndrome polycystic ovaries not notated on CT abdomen/pelvis 01/26 Tobacco dependency Unspecified asthma, uncomplicated onset in childhood Surgical History Hx of cholecystectomy Family History Other Hobst-4-epvzyflkiyp deficiency Drug abuse, amphetamine type Hypertension Social History Smoking and tobacco status: current every day smoker cigarettes Packs smoked per day: 1.5 Years cigarettes smoked: 15 Quit status (tobacco): considering quitting Second hand smoke exposure: Yes Smoking risk assessment/counseling performed?: Yes Alcohol intake: current Alcohol intake frequency: 3 or more drinks per day Alcohol type: hard liquor Desire information about alcohol rehabilitation?: Yes Counseling given: No Desire information about substance/drug rehabilitation?: No Counseling given: No Other details last substance use: Has used methamphetamine, heroin, pain medications. Adopted: No Caregiver/support person: No Lives independently: Yes Household members: friend(s) Housing: Manufactured/Mobile home Marital status: Single Number of children: 2 service: No Current occupational status: unemployed History of recent travel: No Current gender identity: Female Female Reproductive History: Date of last menstrual period: 06/09/20 Para: 2 Physical Exam Const: COMMON NORMALS: no acute distress, patient oriented x3 and healthy appearing HENMT: COMMON NORMALS: normocephalic and atraumatic HEAD & SCALP: normocephalic and atraumatic Eye: COMMON NORMALS: Equal, round and reactive pupils present and EOMs intact bilaterally PUPIL: Yes Equal, round and reactive pupils present Neck/C-Spine: COMMON NORMALS: full ROM and supple Chest: COMMONS NORMALS: normal inspection of the chest and normal palpation of entire chest wall Resp: COMMON NORMALS: normal respiratory effort, No retractions, No use of accessory muscles and clear to auscultation bilaterally AUSCULTATION: clear to auscultation bilaterally Cardio: COMMON NORMALS: regular rhythm and No murmurs present (Cardio) RATE: tachycardic RHYTHM: regular rhythm GI: COMMON NORMALS: Normal to inspection, nondistended, normoactive bowel sounds present, Soft to palpation, non-tender and no masses PALPATION: Yes Soft to palpation Extremity: COMMON NORMALS: normal to inspection and full ROM Neuro: COMMON NORMALS: patient oriented x3, moves all extremities and no focal motor deficits Psych: COMMON NORMALS: mental status grossly normal, Normal thought process present and cooperative THOUGHT PROCESS: Normal thought process present Skin: COMMON NORMALS: no rashes or lesions noted and no wounds GENERAL SKIN EXAM: no rashes or lesions noted Course Vital Signs: Vital signs: Vital Signs Temperature 98.5 F 08/16/20 22:02 Pulse Rate 95 08/17/20 03:10 Respiratory Rate 17 08/17/20 03:10 Blood Pressure 142/82 08/17/20 03:10 Pulse Oximetry 94 08/17/20 03:10 MDM - Nausea/Vomiting/Diarrhea MDM Narrative: Medical decision making narrative: Treatment presents without intoxication along with vomiting. Did attempt to draw blood and start IV and treat her but she after 1 stick adamantly refused any more blood draws or IV attempts. Patient refused any treatment and was discharged. She is to follow-up with PCP and return if worsening. Lab Data: Labs: Lab Results 08/17/20 Range/Units 02:00 Sodium Cancelled Potassium Cancelled Chloride Cancelled Carbon Dioxide Cancelled Anion Gap Cancelled BUN Cancelled Creatinine Cancelled GFR Calculation Cancelled Glucose Cancelled Calculated Osmolal ity Cancelled Calcium Cancelled Total Bilirubin Cancelled AST Cancelled ALT Cancelled Alkaline Phosphata se Cancelled Total Protein Cancelled Albumin Cancelled Globulin Cancelled Salicylates Cancelled Acetaminophen Cancelled Ethyl Alcohol Cancelled Discharge Plan Discharge Patient Disposition: Home Clinical Impression: Alcohol use disorder Alcoholic intoxication Qualifiers: Complication of substance-induced condition: uncomplicated Qualified Code(s): F10.920 - Alcohol use, unspecified with intoxication, uncomplicated Condition: Stable Prescriptions: No Action albuterol sulfate [ProAir HFA] 90 mcg/actuation HFA aerosol inhaler 2 puff inhalation QID PRN (Reason: shortness of breath or wheezing) 30 Days Qty: 6.7 RF: 2 fluticasone propion-salmeterol [Advair Diskus] 250-50 mcg/dose blister with device 1 inh inhalation BID Qty: 60 RF: 2 folic acid 1 mg tablet 1 mg PO DAILY 30 Days Qty: 30 RF: 2 metformin 500 mg tablet extended release 24hr 1,000 mg PO DAILY 30 Days Qty: 60 RF: 2 prazosin 1 mg capsule 1 mg PO BEDTIME 30 Days Qty: 30 RF: 2 trazodone 100 mg tablet 100 mg PO BEDTIME 30 Days Qty: 30 RF: 2 naltrexone 50 mg tablet 50 mg PO DAILY Qty: 30 RF: 0 lisinopril-hydrochlorothiazide 10-12.5 mg tablet 1 tab PO DAILY Qty: 30 RF: 0 venlafaxine [Effexor XR] 75 mg capsule,extended release 24hr 75 mg PO QAM Qty: 30 RF: 2 lorazepam [Ativan] 1 mg tablet 1 mg PO BID Qty: 14 RF: 3 ondansetron HCl [Zofran] 4 mg tablet 4 mg PO Q12H PRN (Reason: nausea ) Qty: 14 RF: 0 potassium chloride 10 mEq capsule, extended release 10 meq PO DAILY Qty: 30 RF: 2 nicotine 21 mg/24 hr Patch 24 Hour 1 patch transdermal DAILY 28 Days Qty: 28 RF: 1 (DME) nebulizer accessories Kit See Rx Instructions .ROUTE .MEDSUPPLY Qty: 1 RF: 0 thiamine mononitrate (vit B1) [Vitamin B-1 (mononitrate)] 100 mg Tablet 100 mg PO DAILY 30 Days Qty: 30 RF: 1 multivitamin with folic acid [Thera] 400 mcg Tablet 1 tab PO DAILY 30 Days Qty: 30 RF: 1 dicyclomine 20 mg tablet 20 mg PO QID Qty: 20 RF: 0 famotidine [Pepcid] 20 mg tablet 20 mg PO BID Qty: 60 RF: 0 epinephrine [EpiPen 2-Gerardo] 0.3 mg/0.3 mL auto-injector 0.3 mg IM Q10M PRN (Reason: anaphylaxis) 30 Days Qty: 2 RF: 1 Carafate 1 gram tablet 1 g PO BID 28 Days Qty: 56 RF: 0 Discharge Orders: Discharge ED (Routine); Ordered 08/17/20 Ordered By: Niranjan Martinez Discharge Diet: Advance as tolerated Discharge Activity: Resume usual activity Patient Instructions: Abuse of Alcohol (ED) Coding Level of Care Code ED Automatic Beading Lathe Operator for Bartolo Fwd Exam Comprehensive
[2020-08-17] MEDS: LORazepam 2 mg/mL INJ 1 mL IM (02:06)
--- NOTE | 2020-08-17 02:10 | PC.NURSE ---
Pt refused IV after 3 attempts by 2 RNs. notified; he ordered IM medication instead of IV. Bloodwork sent to lab.
[2020-08-17 03:10] VITALS: BP 142/82; PULSE 95; RESP 17; O2SAT 94
== END 2020-08-17 03:15 | disposition home or self-care (01) ==
PROVIDERS: Emergency Provider Emergency Medicine
DX: F10.129 Alcohol abuse with intoxication, unspecified (principal); J44.9 Chronic obstructive pulmonary disease, unspecified; I10 Essential (primary) hypertension; Z86.19 Personal history of other infectious and parasitic diseases; F17.210 Nicotine dependence, cigarettes, uncomplicated
CPT/HCPCS: 96372; 99283; J2060

== ENCOUNTER 2020-08-20 21:36 | Inpatient (IN) | payer MEDICAID, SELFPAY ==
[2020-08-20 21:37] VITALS: BP 164/132; PULSE 124; RESP 18; TEMP 36.7; O2SAT 95; BMI 47.2
--- NOTE | 2020-08-20 21:46 | ECG_ITS ---
[facility] Test Date: 2020-08-20 Pat Name: Wendy Foss Department: Room: [facility] Gender: Female Museum Assistant: MALATHI : 1990 Requested By: Gilles Garay Order Number: [id number] Frieda MD: Arabella Mariscal M.D. Measurements Intervals [place] Rate: 102 P: 57 KS: 121 QRS: 16 QRSD: 81 T: 25 QT: 335 QTc: 438 Interpretive Statements SINUS TACHYCARDIA MODERATE ST DEPRESSION [0.05+ mV ST DEPRESSION] No previous ECG available for comparison Electronically Signed On 08-21-2020 10:07:27 CDT by Arabella Mariscal M.D. [id number]
--- NOTE | 2020-08-20 21:46 | XRR_ITS ---
PROCEDURE INFORMATION: Exam: XR Chest Exam date and time: 08/20/2020 9:46 PM Age: 30 years old Clinical indication: Dyspnea; Additional info: Reduced breath sounds TECHNIQUE: Imaging protocol: XR of the chest. Views: 1 view. COMPARISON: CT chest abd pel wo con 08/15/2020 7:44 PM FINDINGS: Lungs: Visualized portions of the lungs are clear. Pleural spaces: Unremarkable. No pleural effusion. No pneumothorax. Heart/Mediastinum: Heart is within normal limits of size. Bones/joints: There is healing fracture of the posterior right 9th rib. XR/XR chest 1V portable [id number] IMPRESSION: No acute infiltrate.
[2020-08-20 22:55] LABS: Basophils % 0.6 %; Eosinophils % 0.6 %; Hemoglobin 12.7 g/dL (11.5-15.3); Lymphocytes # 0.7 10^3/uL (0.8-4.8); Lymphocytes % 20.1 %; Mean Corpuscular HGB Conc 32.6 g/dL (30.0-36.0); Mean Corpuscular Hemoglobin 36.8 pg (28.0-34.0); Mean Platelet Volume 11.8 fL (7.4-10.4); Monocytes # 0.3 10^3/uL (0.2-0.9); Monocytes % 8.1 %; Neutrophils # 2.52 10^3/uL (1.8-7.7); Nucleated Red Blood Cells % 0 %; Platelet Count 69 10^3/cmm (130-400); Red Blood Count 3.45 10^6/uL (4.1-5.3); White Blood Count 3.6 10^3/uL (4.0-10.0)
[2020-08-20 23:11] LABS: Add Urine Microscopic? NO; Charge for UA Resulting for Rev
[2020-08-20 23:18] LABS: Slide Review Slide Review Perform
[2020-08-20 23:19] LABS: Alanine Aminotransferase 86 U/L (0-33); Albumin Level 3.5 g/dL (3.5-5.2); Alkaline Phosphatase 73 IU/L (35-105); Anion Gap 16.5 (5-19); Aspartate Amino Transferase 246 U/L (0-32); Blood Urea Nitrogen 2 mg/dL (6-20); Calcium 8.9 mg/dL (8.5-10.5); Carbon Dioxide 26 mmol/L (22-29); Chloride 100 mmol/L (98-107); Creatinine Clr Calc Pharmacy 152.0548; Globulin 2.5 g/dL (1.3-4.6); Glomerular Filtration Rate 97.6 mL/min (90-130); Glucose 94 mg/dL (65-115); Osmolality Calculated 286 mOsm/kg (285-295); Sodium 140 mmol/L (136-145); Thyroid Stimulating Hormone 1.77 uIU/mL (0.27-4.20); Total Bilirubin 1.9 mg/dL (0.15-1.2)
[2020-08-20 23:21] LABS: Acetaminophen < 5.0 ug/mL (10-30); Alcohol Level < 10 mg/dL (0-10); Salicylate < 0.3 mg/dL (3-10)
[2020-08-20 23:24] LABS: Potassium 2.5 mmol/L (3.5-5.1)
--- NOTE | 2020-08-20 23:26 | PC.NURSE ---
critical given to me per Ana from lab of K 2.5. I immediately reported to Dr Garay at this time
[2020-08-20 23:34] LABS: Bilirubin Urine Neg (Negative); Blood Urine Neg (Negative); Glucose Urine UA Norm (Normal); Ketones Urine Negative (Negative); Leukocyte Esterase Urine Negative (Negative); Nitrate Urine Negative (Negative); Protein Urine Neg (Negative); Specific Gravity, Urine 1.005 (1.005-1.030); Sulfosalicylic Acid Urine Negative (Negative); Urine Appearance Clear (CLEAR); Urine Color Yellow (Yellow); Urobilinogen Urine 1 mg/dL (Negative); pH Urine 8 (5-7)
[2020-08-20 23:43] LABS: Amphetamines Screen Urine Negative (Negative); Barbiturates Screen Urine Negative (Negative); Benzodiazepines Screen Urine Positive (Negative); Cocaine Screen Urine Negative (Negative); Opiate Screen Urine Negative (Negative); PCP Screen Urine Negative (Negative); THC Screen Urine Negative (Negative)
[2020-08-21] VITALS (36 sets, daily range): BP systolic 114–162; BP diastolic 73–116; PULSE 78–109; RESP 14–27; TEMP 36.8–36.9; O2SAT 90–100
[2020-08-21] MEDS: lidocaine 1% 5 ML in potassium chloride premix 100 ML 25 ML IV ×2 (00:05→11:07)
[2020-08-21] MEDS: LORazepam 2 mg/mL INJ 1 mL 1 MG IVP (00:05)
[2020-08-21] MEDS: sodium chloride 0.9% 1,000 ML 999 ML IV (00:05)
[2020-08-21] MEDS: ondansetron 2 mg/ML SDV 2 mL 4 MG IVP (00:10)
--- NOTE | 2020-08-21 00:13 | W.ED.PSYCH ---
HPI - Psych General: Chief Complaint: Psychiatric Symptoms Stated Complaint: HEARING THINGS Time Seen by Provider: 08/20/20 21:40 History of Present Illness: HPI Narrative: The patient is a 30-year-old female with known schizophrenia and severe alcoholism who comes to the ER complaining of suicidal ideations and panic attacks with hallucinations. She says she is seeing and hearing things that are not there. She sees them and hears them but other people tell her that they are not there. She also expresses interest to harm herself. Of note she is also a severe alcoholic trying to detox herself. She says she did not drink any alcohol today and yesterday she had one sugar. She says today at home she had a seizure. She apparently has had one seizure before when she tried to quit alcohol and one when she was very young. She does not remember the details of the seizure as she blacked out. The first thing she remembers is someone calling her name after it. EMS gave her ketamine and Haldol prior to arrival. MD complaint: suicidal ideation Duration: constant History of same: Yes Relieving factors: none Exacerbating factors: other (Haldol) Associated psychiatric symptoms: depression, suicidal ideation, auditory hallucinations and visual hallucinations Associated symptoms: Reports auditory hallucinations, visual hallucinations, depression and suicidal ideation Treatments prior to arrival: none If self harm: admits thoughts of self harm Review of Systems General: Reports: 10 or more systems reviewed and unremarkable except in HPI and below Const: Denies: fatigue Eyes: Denies: change in vision, blurry vision or eye redness ENMT: Denies: throat pain, swelling of lips/tongue, ear or mastoid pain or nasal congestion Card: Denies: chest pain, palpitations, irregular heart rhythm, edema, dyspnea on exertion or orthopnea Resp: Denies: dyspnea, productive cough or non-productive cough GI: Denies: abdominal pain, diarrhea or GI cramping : Denies: flank pain, difficulty voiding, urinary frequency or urinary urgency Musc: Denies: neck pain, back pain, extremity pain, joint pain, joint redness, limited range of motion or muscle weakness Skin/Breast: Denies: rash, pruritus, erythema, skin pain or skin tenderness Neuro: Denies: headache(s), numbness in extremities, weakness in extremities, sensory changes, difficulty walking, dizziness, confusion or Slurred speech present Psych: Reports: depression, visual hallucinations, auditory hallucinations and suicidal ideation Endo: Denies: polyuria All/Imm: Denies: urticaria, throat swelling or tongue swelling PFSH ED PFSH: Medical History Alcohol abuse with alcohol-induced mood disorder COPD (chronic obstructive pulmonary disease) Essential (primary) hypertension not on any chronic treatment 09/26 Family history of alpha 1 antitrypsin deficiency Fibromyalgia Generalized anxiety disorder H/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, includes meth, heroin, others, on buprenorphine Hepatitis C antibody positive in blood Hx of abscess of skin and subcutaneous tissue right arm Major depressive disorder, recurrent, moderate Nontoxic thyroid nodule Opioid abuse Polycystic ovarian syndrome polycystic ovaries not notated on CT abdomen/pelvis 01/26 Tobacco dependency Unspecified asthma, uncomplicated onset in childhood Surgical History Hx of cholecystectomy Family History Other Nwuvu-5-tphiuubycro deficiency Drug abuse, amphetamine type Hypertension Social History Smoking and tobacco status: current every day smoker cigarettes Packs smoked per day: 1.5 Years cigarettes smoked: 15 Quit status (tobacco): considering quitting Second hand smoke exposure: Yes Smoking risk assessment/counseling performed?: Yes Alcohol intake: current Alcohol intake frequency: 3 or more drinks per day Alcohol type: hard liquor Desire information about alcohol rehabilitation?: Yes Counseling given: No Desire information about substance/drug rehabilitation?: No Counseling given: No Other details last substance use: Has used methamphetamine, heroin, pain medications. Adopted: No Caregiver/support person: No Lives independently: Yes Household members: friend(s) Housing: Manufactured/Mobile home Marital status: Single Number of children: 2 service: No Current occupational status: unemployed History of recent travel: No Current gender identity: Female Female Reproductive History: Date of last menstrual period: 06/09/20 Para: 2 Physical Exam Const: COMMON NORMALS: no acute distress, average body habitus, patient oriented x3, no limitations, healthy appearing, alert and well nourished GENERAL APPEARANCE: cooperative, comfortable, well kempt and well developed ORIENTATION/CONSCIOUSNESS: Yes awake, Yes oriented to person, Yes oriented to place and Yes oriented to time HENMT: COMMON NORMALS: normocephalic, external ears normal and Normal external nose present HEAD & SCALP: normal to inspection and normocephalic NOSE: Normal external nose present EXTERNAL EAR: Yes external ears normal MOUTH: Normal oral and palatal mucosa present THROAT: posterior oropharynx normal Eye: COMMON NORMALS: Equal, round and reactive pupils present and EOMs intact bilaterally GENERAL EYE: appearance normal, both eyes and all related structures PUPIL: Yes Equal, round and reactive pupils present Neck/C-Spine: COMMON NORMALS: full ROM, no lymphadenopathy, no meningeal signs and no JVD GENERAL: Yes normal visual inspection Lymph: LYMPHATIC: no lymphadenopathy noted Chest: COMMONS NORMALS: normal inspection of the chest and normal palpation of entire chest wall Resp: COMMON NORMALS: normal respiratory effort, No retractions, No use of accessory muscles, clear to auscultation bilaterally and percussion normal EFFORT & INSPECTION: Yes able to speak in complete sentences AUSCULTATION: clear to auscultation bilaterally PERCUSSION: percussion normal Cardio: COMMON NORMALS: no JVD, regular rhythm, S1 normal heart sound present, S2 normal heart sound present and Peripheral pulses 2+ throughout RATE: tachycardic RHYTHM: regular rhythm HEART SOUNDS: S1 normal heart sound present and S2 normal heart sound present PERIPHERAL PULSES: Peripheral pulses 2+ throughout GI: COMMON NORMALS: Normal to inspection, nondistended, normoactive bowel sounds present, Soft to palpation, non-tender and no masses INSPECTION: Yes normal to inspection PALPATION: Yes Soft to palpation : COMMON NORMALS: Yes no CVA tenderness BLADDER/KIDNEY EXAM: Yes no CVA tenderness Back/Pelvis: COMMON NORMALS: no CVA tenderness, thoracic and lumbar spine normal to inspection, no thoracic nor lumbar tenderness and thoraco-lumbar ROM normal Extremity: COMMON NORMALS: normal to inspection, full ROM, capillary refill normal, no joint enlargement and no pedal edema GENERAL: Yes normal exam except as noted Neuro: COMMON NORMALS: patient oriented x3, CN's II-XII intact bilaterally, moves all extremities, no focal motor deficits, no sensory deficits noted and gait normal SENSORIUM/ORIENTATION: Yes alert, Yes oriented to person, Yes oriented to place and Yes oriented to time MENINGEAL SIGNS: Yes no meningeal signs Psych: COMMON NORMALS: mental status grossly normal, Normal thought process present, cooperative, normal affect and speech normal APPEARANCE: Yes well kempt ATTITUDE: Yes calm SPEECH: Yes normal speech THOUGHT PROCESS: Normal thought process present THOUGHT CONTENT: Yes Suicidality present and Yes Hallucination(s) present auditory and visual Skin: COMMON NORMALS: no rashes or lesions noted GENERAL SKIN EXAM: no rashes or lesions noted Course Vital Signs: Vital signs: Vital Signs Temperature 98.0 F 08/20/20 21:37 Pulse Rate 124 H 08/20/20 21:37 Respiratory Rate 18 08/20/20 21:37 Blood Pressure 164/132 08/20/20 21:37 Pulse Oximetry 95 08/20/20 21:37 MDM - Psych MDM Narrative: Medical decision making narrative: The patient came in with her typical complaint of suicidal ideations. She is also having hallucinations auditory and visual. She says she is trying to quit alcohol and has not drink any alcohol today. She had when she had her yesterday. She complains of nausea vomiting and diarrhea at home related to her alcohol withdrawal as well. Potassium is 2.5. She says she had a seizure at home as well and she had a seizure the last time she tried to quit alcohol sometime ago. IV was placed and given IV fluids and potassium. CIWA protocol started. Discussed with Dr. Medrano who accepts for observation to ICU. Discussed with Dr. Reed who will consult. Lab Data: Labs: Lab Results 08/20/20 08/20/20 08/20/20 Range/Units 21:56 21:56 22:43 WBC (4.0-10.0) 10^3/ uL RBC (4.1-5.3) 10^6/u L Hgb (11.5-15.3) g/dL Hct (37.0-47.0) % MCV (81-99) fL MCH (28.0-34.0) pg MCHC (30.0-36.0) g/dL RDW (12.1-15.1) % Plt Count (130-400) 10^3/c mm MPV (7.4-10.4) fL Neut % (Auto) % Lymph % (Auto) % [place] % (Auto) % Eos % (Auto) % Baso % (Auto) % Neut # (Auto) (1.8-7.7) 10^3/u L Lymph # (Auto) (0.8-4.8) 10^3/u L [place] # (Auto) (0.2-0.9) 10^3/u L Eos # (Auto) (0.0-0.8) 10^3/u L Baso # (Auto) (0.0-0.1) 10^3/u L Nucleated RBC % (a uto) % Nucleated RBCs # /100WBC Sodium 140 (136-145) mmol/L Potassium 2.5 L* (3.5-5.1) mmol/L Chloride 100 (98-107) mmol/L Carbon Dioxide 26 (22-29) mmol/L Anion Gap 16.5 (5-19) BUN 2 L (6-20) mg/dL Creatinine 0.7 (0.5-0.9) mg/dL GFR Calculation 97.6 (90-130) mL/min Glucose 94 (65-115) mg/dL Calculated Osmolal ity 286 (285-295) mOsm/k g Calcium 8.9 (8.5-10.5) mg/dL Total Bilirubin 1.9 H (0.15-1.2) mg/dL AST 246 H (0-32) U/L ALT 86 H (0-33) U/L Alkaline Phosphata se 73 (35-105) IU/L Total Protein 6.0 L (6.6-8.7) g/dL Albumin 3.5 (3.5-5.2) g/dL Globulin 2.5 (1.3-4.6) g/dL TSH 1.77 (0.27-4.20) uIU/ mL Urine Color Yellow (Yellow) Urine Appearance Clear (CLEAR) Urine pH 8 H (5-7) Ur Specific Gravit y 1.005 (1.005-1.030) Urine Protein Neg (Negative) Urine Glucose (UA) Norm (Normal) Urine Ketones Negative (Negative) Urine Blood Neg (Negative) Urine Nitrate Negative (Negative) Urine Bilirubin Neg (Negative) Prot Sulfosalicyli c Acd Negative (Negative) Urine Urobilinogen 1 H (Negative) mg/dL Ur Leukocyte Louisa ase Negative (Negative) Salicylates < 0.3 L (3-10) mg/dL Urine Opiates Scre en Negative (Negative) ng/mL Acetaminophen < 5.0 L (10-30) ug/mL Ur Barbiturates Sc reen Negative (Negative) ng/mL Ur Phencyclidine S crn Negative (Negative) ng/mL Ur Amphetamines Sc reen Negative (Negative) ng/mL U Benzodiazepines Scrn Positive H (Negative) ng/mL Urine Cocaine Scre en Negative (Negative) ng/mL U Marijuana (THC) Screen Negative (Negative) ng/mL Ethyl Alcohol < 10 (0-10) mg/dL 08/20/20 Range/Units 22:43 WBC 3.6 L (4.0-10.0) 10^3/ uL RBC 3.45 L (4.1-5.3) 10^6/u L Hgb 12.7 (11.5-15.3) g/dL Hct 39.0 (37.0-47.0) % MCV 113.0 H (81-99) fL MCH 36.8 H (28.0-34.0) pg MCHC 32.6 (30.0-36.0) g/dL RDW 19.0 H (12.1-15.1) % Plt Count 69 L (130-400) 10^3/c mm MPV 11.8 H (7.4-10.4) fL Neut % (Auto) 70.0 % Lymph % (Auto) 20.1 % [place] % (Auto) 8.1 % Eos % (Auto) 0.6 % Baso % (Auto) 0.6 % Neut # (Auto) 2.52 (1.8-7.7) 10^3/u L Lymph # (Auto) 0.7 L (0.8-4.8) 10^3/u L [place] # (Auto) 0.3 (0.2-0.9) 10^3/u L Eos # (Auto) 0.0 (0.0-0.8) 10^3/u L Baso # (Auto) 0.0 (0.0-0.1) 10^3/u L Nucleated RBC % (a uto) 0 % Nucleated RBCs # 0.0 /100WBC Sodium (136-145) mmol/L Potassium (3.5-5.1) mmol/L Chloride (98-107) mmol/L Carbon Dioxide (22-29) mmol/L Anion Gap (5-19) BUN (6-20) mg/dL Creatinine (0.5-0.9) mg/dL GFR Calculation (90-130) mL/min Glucose (65-115) mg/dL Calculated Osmolal ity (285-295) mOsm/k g Calcium (8.5-10.5) mg/dL Total Bilirubin (0.15-1.2) mg/dL AST (0-32) U/L ALT (0-33) U/L Alkaline Phosphata se (35-105) IU/L Total Protein (6.6-8.7) g/dL Albumin (3.5-5.2) g/dL Globulin (1.3-4.6) g/dL TSH (0.27-4.20) uIU/ mL Urine Color (Yellow) Urine Appearance (CLEAR) Urine pH (5-7) Ur Specific Gravit y (1.005-1.030) Urine Protein (Negative) Urine Glucose (UA) (Normal) Urine Ketones (Negative) Urine Blood (Negative) Urine Nitrate (Negative) Urine Bilirubin (Negative) Prot Sulfosalicyli c Acd (Negative) Urine Urobilinogen (Negative) mg/dL Ur Leukocyte Louisa ase (Negative) Salicylates (3-10) mg/dL Urine Opiates Scre en (Negative) ng/mL Acetaminophen (10-30) ug/mL Ur Barbiturates Sc reen (Negative) ng/mL Ur Phencyclidine S crn (Negative) ng/mL Ur Amphetamines Sc reen (Negative) ng/mL U Benzodiazepines Scrn (Negative) ng/mL Urine Cocaine Scre en (Negative) ng/mL U Marijuana (THC) Screen (Negative) ng/mL Ethyl Alcohol (0-10) mg/dL Discharge Plan Discharge Patient Disposition: Placed in Observation Clinical Impression: Alcohol withdrawal syndrome, Suicidal ideation, Acute hypokalemia, Hallucination Coding Level of Care Code ED Art Museum Docent for Bartolo Lund
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
[2020-08-21] MEDS: LORazepam 2 mg/mL INJ 1 mL IVP ×3 (03:34→23:41)
--- NOTE | 2020-08-21 07:29 | P.HP_ITS ---
Providers/Chief Complaint Admitting Physician: Celina Medrano MD Chief Complaint: HEARING THINGS History of Present Illness Wendy Foss is a 30 year old female alcoholic who was brought in by EMS who had administered ketamine and Haldol. She complained of hallucinating, having shakes and not feeling well. Reported having a seizure. Indicated she had not had anything to drink in a couple of days as she was trying to detox herself. She has frequent emergency room visits and admissions. She expressed her desire to want to to ER staff which is not an uncommon occurrence when she comes in. She reported hearing things and seeing things in the emergency room. She had a low potassium in the emergency room. Some increase in LFTs and low platelet count consistent with her chronic alcohol/liver issues. Alcohol level was actua lly less than 10 this time. ER requested admission to the hospital for management. Patient herself has received Ativan and I am unable to get any history from her. Review of Systems General: Reports: ROS unobtainable due to mental status Medications/Allergies Home Medications Medication Instructions Recorded Confirmed Last Taken Type epinephrine [EpiPen 2-Gerardo] 0.3 mg IM Q10M PRN 30 Days #2 each 01/26/20 08/15/20 Unknown Rx multivitamin with folic acid 1 tab PO DAILY 30 Days #30 tab 05/10/20 08/15/20 Unknown Rx [Thera] nebulizer accessories #1 each 05/10/20 08/15/20 Unknown Rx nicotine 1 patch TRANSDERMAL DAILY 28 Days 05/10/20 08/15/20 Unknown Rx #28 ea thiamine mononitrate (vit B1) 100 mg PO DAILY 30 Days #30 tab 05/10/20 08/15/20 Unknown Rx [Vitamin B-1 (mononitrate)] ondansetron HCl 4 mg tablet 4 mg PO Q12H PRN #14 tab 07/26/20 08/15/20 Unknown Rx albuterol sulfate 90 mcg/actuation 2 puff INHALATION QID PRN 30 Days 08/01/20 08/15/20 08/14/20 Rx aerosol inhaler #6.7 g fluticasone 250 mcg-salmeterol 50 1 inh INHALATION BID #60 ea 08/01/20 08/15/20 Unknown Rx mcg/dose blistr powdr for inhalation folic acid 1 mg tablet 1 mg PO DAILY 30 Days #30 tab 08/01/20 08/15/20 Unknown Rx lisinopril 10 1 tab PO DAILY #30 tab 08/01/20 08/15/20 Unknown Rx mg-hydrochlorothiazide 12.5 mg tablet lorazepam 1 mg tablet 1 mg PO BID #14 tab 08/01/20 08/15/20 Unknown Rx metformin 500 mg tablet,extended 1,000 mg PO DAILY 30 Days #60 tab 08/01/20 08/15/20 Unknown Rx release 24hr naltrexone 50 mg tablet 50 mg PO DAILY #30 tab 08/01/20 08/15/20 Unknown Rx prazosin 1 mg capsule 1 mg PO BEDTIME 30 Days #30 cap 08/01/20 08/15/20 Unknown Rx trazodone 100 mg tablet 100 mg PO BEDTIME 30 Days #30 tab 08/01/20 08/15/20 Unknown Rx venlafaxine 75 mg capsule,extended 75 mg PO QAM #30 cap 08/01/20 08/15/20 Unknown Rx release 24 hr potassium chloride 10 mEq 10 meq PO DAILY #30 cap 08/07/20 08/15/20 Unknown Rx capsule,extended release dicyclomine 20 mg PO QID #20 tab 08/10/20 08/15/20 Unknown Rx famotidine [Pepcid] 20 mg PO BID #60 tab 08/10/20 08/15/20 Unknown Rx sucralfate [Carafate] 1 g PO BID 28 Days #56 tab 08/15/20 Unknown Rx Allergies Allergy/AdvReac Type Severity Reaction Status Date / Time codeine Allergy Unknown ALGY-Hives Verified 08/16/20 22:07 hydroxyzine [From Vistaril] Allergy ADR-Itching Verified 08/16/20 22:07 PFSH Acute PFSH: Medical History (Updated 08/21/20 @ 07:43 by Celina Medrano MD) Alcohol abuse with alcohol-induced mood disorder Breast lump COPD (chronic obstructive pulmonary disease) Essential (primary) hypertension not on any chronic treatment 09/26 Family history of alpha 1 antitrypsin deficiency Fibromyalgia Generalized anxiety disorder H/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, includes meth, heroin, others, on buprenorphine Hepatitis C antibody positive in blood Hx of abscess of skin and subcutaneous tissue right arm Major depressive disorder, recurrent, moderate Nontoxic thyroid nodule Opioid abuse Polycystic ovarian syndrome polycystic ovaries not notated on CT abdomen/pelvis 01/26 Posttraumatic stress disorder Thrombocytopenia Tobacco dependency Unspecified asthma, uncomplicated onset in childhood Surgical History Hx of cholecystectomy Family History Other Rlqdj-0-clnlqstldne deficiency Drug abuse, amphetamine type Hypertension Social History (Updated 08/21/20 @ 07:41 by Celina Medrano MD) Smoking and tobacco status: current every day smoker cigarettes Packs smoked per day: 1.5 Years cigarettes smoked: 15 Quit status (tobacco): considering quitting Second hand smoke exposure: Yes Alcohol intake: current Alcohol intake frequency: 3 or more drinks per day Alcohol type: hard liquor Other details last substance use: Has used methamphetamine, heroin, pain medications. Adopted: No Caregiver/support person: No Lives independently: Yes Household members: friend(s) Housing: Manufactured/Mobile home Marital status: Single Number of children: 2 service: No Current occupational status: unemployed History of recent travel: No Current gender identity: Female Female Reproductive History: Para: 2 Vitals/I&O/Wt Last Vital Signs Temp 98.3 F 08/21/20 03:13 Pulse 83 08/21/20 06:15 Resp 14 08/21/20 06:15 BP 125/89 08/21/20 06:15 Pulse Ox 99 08/21/20 06:15 08/20/20 08/21/20 08/21/20 22:59 06:59 14:59 Intake Total 1105 / 1105 Balance 1105 / 1105 Weight last 48 hrs Weight 124.738 kg Data : 08/20/20 22:43 08/20/20 22:43 A&P Assessment and plan (1) Alcohol withdrawal syndrome: With reported hallucinations audio and visual, reported seizure prior to presentation, thoughts of wanting today, anxiety Status: Acute Qualifiers: Complication of substance-induced condition: with delirium Qualified Code(s): F10.231 - Alcohol dependence with withdrawal delirium (2) Chronic alcohol abuse: Remarkably with undetectable alcohol level this time Status: Chronic Additional A&P Information Hypokalemia Thrombocytopenia and elevated liver enzymes Recurrent ED visits, psychiatric admissions, hospital admissions Observation admission for now IV fluids Check magnesium, replace potassium Continue CIWA protocol PPI SCDs for DVT prophylaxis Recheck laboratory studies in the morning One-to-one sitter for safety until mentation improves Reevaluate suicidal thoughts once mentation clears Nicotine patch Supportive care otherwise Full code Attestations Medical Necessity Statement*: Currently anticipate a stay less than 2 midnights in a patient with chronic alcohol abuse and recurrent visits with similar presentations presenting with above-mentioned complaints. She does have an undetectable alcohol level this time so may require transition to inpatient care. At the present time she is sedate and I am unable to appropriately evaluate further. Plans are as indicated. Coding Level of Care Code Acute Automatic Winder Operator for Bartolo Lund Diagnoses Alcohol withdrawal syndrome F10.231 Complication of substance-induced condition: with delirium Chronic alcohol abuse F10.10
[2020-08-21 08:29] LABS: Anion Gap 13.8 (5-19); Blood Urea Nitrogen 3 mg/dL (6-20); Calcium 8.4 mg/dL (8.5-10.5); Carbon Dioxide 30 mmol/L (22-29); Chloride 101 mmol/L (98-107); Glomerular Filtration Rate 116.6 mL/min (90-130); Glucose 90 mg/dL (65-115); Magnesium 1.1 mg/dL (1.7-2.3); Osmolality Calculated 290 mOsm/kg (285-295); Phosphorus 4.5 mg/dL (2.5-4.5); Sodium 142 mmol/L (136-145)
[2020-08-21 09:17] LABS: Potassium 2.8 mmol/L (3.5-5.1)
--- NOTE | 2020-08-21 09:21 | PC.PHAR ---
PT WONT VERIFY MEDICATIONS-CALLED PTS [facility] [phone] NO VOICEMAIL SET UP TO LEAVE MESSAGE-MEDICATIONS ENTERED ARE WHAT SHOWS HAS BEEN FILLED RECENTLY ON EXT MED HISTORY AND MEDS THAT WERE ON PREVIOUS ENTERED MED LIST-NOTES ARE MADE ON EACH RX IN PHARMACY COMMENTS
--- NOTE | 2020-08-21 10:07 | P.PN_ITS ---
Subjective Subjective: Interval history: History and physical reviewed. In talking with the nurse patient got Ativan on arrival to the ICU secondary to some hallucinations. She opens her eyes briefly to verbal stimulation and then goes back to sleep. Medications: Reviewed: Yes Vitals/I&O/Wt Last Vital Signs Temp 98.3 F 08/21/20 03:13 Pulse 83 08/21/20 07:46 Resp 14 08/21/20 06:15 BP 125/89 08/21/20 06:15 Pulse Ox 99 08/21/20 06:15 08/20/20 08/21/20 08/21/20 22:59 06:59 14:59 Intake Total 1105 / 1105 Balance 1105 / 1105 Weight last 48 hrs Weight 124.738 kg Physical Exam Narrative: EXAM NARRATIVE: General exam is a white female, no distress. Neurologic: No focal deficits, wakes briefly to verbal stimuli and then goes back to sleep HEENT: Atraumatic. Neck supple no lymphadenopathy or thyromegaly Cardiovascular regular rate and rhythm without murmur Lungs a few bilateral wheezes Abdomen is soft with positive bowel sounds, obese Extremities no cyanosis clubbing or edema Data : 08/20/20 22:43 08/21/20 07:57 A&P Assessment and plan (1) Alcohol withdrawal syndrome: [facility] protocol Monitor for withdrawal Thiamine, folate It appears psychiatric consultation has been ordered from the emergency department and they have written a past history of schizophrenia although I cannot confirm this. Patient had reported seizure prior to coming in, although this cannot be confirmed. Acute encephalopathy associated with alcohol withdrawal has not yet resolved. From my understanding patient was having active hallucinations on admission as well. Status: Acute Qualifiers: Complication of substance-induced condition: with delirium Qualified Code(s): F10.231 - Alcohol dependence with withdrawal delirium (2) Chronic alcohol abuse: Alcohol level 0 on admission Status: Chronic (3) Hypokalemia: Supplement Associated with hypomagnesemia. Will supplement this as well. Status: Acute (4) Hepatitis C antibody positive in blood: Status: Chronic (5) Type 2 diabetes mellitus with hyperglycemia: Status: Chronic Additional A&P Information Thrombocytopenia, elevated MCV, elevated LFTs. This could be secondary to underlying liver disease, alcohol bone marrow suppression, etc. Check ammonia level as this may impact her behavior. Check B12 level. Tobacco dependency. Counseled on abstinence. Full code SCDs for DVT prophylaxis Attestations Medical Necessity Statement*: At this point needs continued hospitalization for active alcohol withdrawal. Coding Level of Care Code Acute Certified Alcohol Counselor for Chg F[facility] Diagnoses Alcohol withdrawal syndrome F10.231 Complication of substance-induced condition: with delirium Chronic alcohol abuse F10.10 Hypokalemia E87.6 Hepatitis C antibody positive in blood R76.8 Type 2 diabetes mellitus with hyperglycemia E11.65
[2020-08-21] MEDS: ipratropium-albuterol 3 mL Neb INHALATION ×2 (10:35→15:03)
[2020-08-21 10:52] LABS: Magnesium 1.1 mg/dL (1.7-2.3)
[2020-08-21] MEDS: multivitamin therapeutic Tablet 1 TAB PO (10:55)
[2020-08-21] MEDS: thiamine 100 mg Tablet PO (10:55)
[2020-08-21] MEDS: folic acid 1 mg Tablet PO (10:56)
[2020-08-21] MEDS: LORazepam 2 mg/mL INJ 1 mL IM ×2 (10:56→15:10)
[2020-08-21] MEDS: pantoprazole DR 40 mg Tablet PO (10:56)
[2020-08-21] MEDS: sodium chlor 0.9% + KCl 20 mEq 20 MEQ/1,000 ML BAG 100 MEQ IV (11:00)
[2020-08-21 11:07] LABS: Vitamin B12 249 pg/mL (232-1245)
[2020-08-21] MEDS: enoxaparin 40 mg/0.4 mL Syringe SUBCUT (11:11)
[2020-08-21] MEDS: magnesium sulfate premix 2 GM/50 ML PIGGYBACK IV (11:12)
[2020-08-21 11:19] LABS: Glucose Point of Care 118 mg/dL (70-110)
--- NOTE | 2020-08-21 11:59 | PM.PSYCN ---
Providers/Reason for Consult Consulting Physican/Specialty*: Zain Reed DO Reason for Consult*: Alcohol intoxication, report of auditory hallucinations in the context of alcohol withdrawal Attending Physician: Martin Dominguez MD Psych Consult HPI History of Present Illness Wendy Foss is a 30 year old female 30 year old female admitted to the ICU under similar circumstances as previous admission with last consultation by this interviewer approximately 6 weeks ago in which the patient was also intoxicated and reporting perceptual disturbances and suicidal ideation. Patient's blood alcohol level was unremarkable at the time of emergency department evaluation was likely starting to experience alcohol withdrawal and is currently on a CIWA protocol and is somewhat soporific during interview. She currently denies any perceptual disturbances, denies any auditory or visual destinations, denies any delusions. She denies any current suicidal ideation. Psychiatric review of systems is otherwise negative. Patient states that she did not follow-up with any outpatient substance or alcohol counseling/treatment after last discharge and has not been compliant with follow-up mental health treatment. Patient states that she is interested in post discharge counseling/treatment. Review of Systems General: Reports: ROS unobtainable due to mental status Meds Current Medications: Current Medications Generic Name Dose Route Start Last Admin Trade Name Freq PRN Reason Stop Dose Admin Albuterol/Ipratrop ium 3 ml 08/21/20 07:49 08/21/20 10:35 Ipratropium-Albu terol 3 Ml Neb INHALATION 3 ml Q6H.RESPIRATORY P RN Administration SHORTNESS OF LEEANNE TH Enoxaparin Sodium 40 mg 08/21/20 09:00 08/21/20 11:11 Enoxaparin 40 Mg /0.4 Ml Syringe SUBCUT 40 mg Q24H JULIANO Administration Folic Acid 1 mg 08/21/20 09:00 08/21/20 10:56 Folic Acid 1 Mg Tablet PO 1 mg DAILY JULIANO Administration Potassium Chloride /Sodium Chloride 20 meq in 1,000 m ls @ 100 mls/hr 08/21/20 07:45 08/21/20 11:00 Sodium Chlor 0.9 % + Kcl 20 Meq IV 100 mls/hr .Q10H JULIANO Administration Lidocaine HCl 5 ml / Potassium 105 mls @ 25 mls/ hr 08/21/20 10:00 08/21/20 11:07 Chloride IV 08/21/20 14:11 25 mls/hr ONCE ONE Administration Insulin Aspart 0 unit 08/21/20 08:00 08/21/20 11:17 Insulin Aspart 1 00 Unit/1 Ml SUBCUT Not Given TIDWM JULIANO Protocol Lorazepam 2 mg 08/21/20 02:31 08/21/20 10:56 Lorazepam 2 Mg/M l Inj 1 Ml IM 2 mg Q4H PRN Administration ALCOWD Protocol Lorazepam 2 mg 08/21/20 02:31 08/21/20 03:34 Lorazepam 2 Mg/M l Inj 1 Ml IVP 2 mg PRN PRN Administration WITHDRAWAL Protocol Multivitamins Ther apeutic 1 tab 08/21/20 09:00 08/21/20 10:55 Multivitamin The rapeutic Tablet PO 1 tab DAILY JULIANO Administration Pantoprazole Sodiu m 40 mg 08/21/20 09:00 08/21/20 10:[address] 40 Mg Tablet PO 40 mg DAILY JULIANO Administration Thiamine Mononitra te 100 mg 08/21/20 09:00 08/21/20 10:55 Thiamine 100 Mg Tablet PO 100 mg DAILY JULIANO Administration PFSH NPU PFSH: Medical History Alcohol abuse with alcohol-induced mood disorder Breast lump COPD (chronic obstructive pulmonary disease) Essential (primary) hypertension not on any chronic treatment 09/26 Family history of alpha 1 antitrypsin deficiency Fibromyalgia Generalized anxiety disorder H/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, includes meth, heroin, others, on buprenorphine Hepatitis C antibody positive in blood Hx of abscess of skin and subcutaneous tissue right arm Major depressive disorder, recurrent, moderate Nontoxic thyroid nodule Opioid abuse Polycystic ovarian syndrome polycystic ovaries not notated on CT abdomen/pelvis 01/26 Posttraumatic stress disorder Thrombocytopenia Tobacco dependency Unspecified asthma, uncomplicated onset in childhood Surgical History Hx of cholecystectomy Family History Other Rxuuz-2-dmnqsuqkoko deficiency Drug abuse, amphetamine type Hypertension Social History Smoking and tobacco status: current every day smoker cigarettes Packs smoked per day: 1.5 Years cigarettes smoked: 15 Quit status (tobacco): considering quitting Second hand smoke exposure: Yes Alcohol intake: current Alcohol intake frequency: 3 or more drinks per day Alcohol type: hard liquor Other details last substance use: Has used methamphetamine, heroin, pain medications. Adopted: No Caregiver/support person: No Lives independently: Yes Household members: friend(s) Housing: Manufactured/Mobile home Marital status: Single Number of children: 2 service: No Current occupational status: unemployed History of recent travel: No Current gender identity: Female Other Psychiatric History: Other Psychiatric History: No changes since previous psychiatry consult on July 13, 2020, patient has longstanding psychiatric issues with no subsequent changes and poor compliance with abstaining from alcohol. Female Reproductive History: Para: 2 Mental Status Exam MSE Comments: Sitting up in her bed, soporific, dozing off between questions requiring physical nudging and prompting to answer questions, fair eye contact Psychomotor activity is decreased secondary to sedation, no agitation Speech is slow rate and low volume, fair articulation, requires prompting, not pressured I am okay, congruent affect, smiles appropriately at times during interview, not labile Soporific and oriented to person, place, time, situation Memory and concentration appear to be fair per interview Thought process, linear but brief, no flight of ideas, no looseness of associations Thought content, no delusions, no hallucinations, does not appear to be attending to any internal stimuli, no suicidal or homicidal ideation Insight and judgment appear to be fair Vitals/I&O/Wt Last Vital Signs Temp 98.3 F 08/21/20 03:13 Pulse 103 H 08/21/20 10:38 Resp 20 H 08/21/20 10:35 BP 125/89 08/21/20 06:15 Pulse Ox 97 08/21/20 10:35 08/20/20 08/21/20 08/21/20 22:59 06:59 14:59 Intake Total 1105 / 1105 Balance 1105 / 1105 Weight last 48 hrs Weight 124.738 kg A&P Assessment and plan (1) Alcohol dependence with withdrawal: Status: Acute Additional A&P Information Patient with reported auditory hallucination in the context of alcohol withdrawal. Patient currently soporific and on alcohol withdrawal protocol. Patient continues to report lack of compliance with post discharge treatment and follow-up continues to use alcohol. Patient would most benefit from post discharge residential alcohol treatment which would allow for diagnostic clarification given that many of her psychiatric symptoms are presenting in the context of either alcohol intoxication or withdrawal as well as ongoing interval use of alcohol. Inpatient psychiatric hospitalization is not indicated once patient's medically managed withdrawal is complete; outpatient medication management as well as intensive outpatient or residential substance counseling/treatment are the least restrictive and appropriate level of care at this time CONTINUE current home medication, follow-up with outpatient psychiatry for medication management Discussed abstaining from the use of alcohol or any substances with patient, who communicated her understanding and agreement. RECOMMEND post discharge substance counseling/treatment Psychiatry will sign off at this time Involuntary Hold Information 96 Hour Hold: 96 Hour Involuntary Admission: Yes 96 Hour Hold Ending Date: 04/11/21 96 Hour Hold Ending Time: 23:18 Attestations NPU Medical Necessity Statement*: Per primary team Time Spent in Patient Care: Greater than 35 minutes (>than 50% of time spent in counselling and/or direct pt care on unit). Coding Level of Care Code Acute Accounts Payable Professional for Bartolo Lund Diagnoses Alcohol dependence with withdrawal F10.239
[2020-08-21 12:03] LABS: Ammonia 50 umol/L (11-51)
[2020-08-21] MEDS: potassium chloride ER 20 mEq Tablet 40 MEQ PO (15:09)
--- NOTE | 2020-08-21 17:40 | PC.RESP ---
Smoking Cessation and Pulmonary Rehab information sent to patient.
--- NOTE | 2020-08-21 19:31 | PC.NURSE ---
Pt transferred to [facility] via w/c to room 278-1 by yuly Hernandez at this time.
[2020-08-21 20:18] LABS: Glucose Point of Care 129 mg/dL (70-110)
[2020-08-21] MEDS: sodium chlor 0.9% + KCl 20 mEq 20 MEQ/1,000 ML BAG 50 MEQ IV (21:57)
[2020-08-21] MEDS: trazodone 100 mg Tablet PO (22:01)
[2020-08-21] MEDS: prazosin 1 mg Capsule PO (22:01)
[2020-08-22] VITALS (8 sets, daily range): BP systolic 104–140; BP diastolic 70–98; PULSE 84–98; RESP 16–20; TEMP 36.6–37.2; O2SAT 95–98
[2020-08-22] MEDS: LORazepam 2 mg/mL INJ 1 mL IVP ×2 (04:35→22:18)
[2020-08-22] MEDS: venlafaxine ER (24HR) 75 mg Capsule PO (05:28)
[2020-08-22 05:35] LABS: Basophils % 0.9 %; Eosinophils # 0.1 10^3/uL (0.0-0.8); Eosinophils % 2.6 %; Hematocrit 33.9 % (37.0-47.0); Hemoglobin 11.3 g/dL (11.5-15.3); Lymphocytes # 0.9 10^3/uL (0.8-4.8); Lymphocytes % 38.3 %; Mean Corpuscular HGB Conc 33.3 g/dL (30.0-36.0); Mean Corpuscular Hemoglobin 37.5 pg (28.0-34.0); Mean Corpuscular Volume 112.6 fL (81-99); Mean Platelet Volume 11.3 fL (7.4-10.4); Monocytes # 0.2 10^3/uL (0.2-0.9); Monocytes % 10.4 %; Neutrophils # 1.08 10^3/uL (1.8-7.7); Neutrophils % 46.9 %; Nucleated Red Blood Cells % 0 %; Platelet Count 87 10^3/cmm (130-400); Red Blood Count 3.01 10^6/uL (4.1-5.3); Red Cell Distribution Width 19.3 % (12.1-15.1); White Blood Count 2.3 10^3/uL (4.0-10.0)
[2020-08-22 05:41] LABS: INR 1.11 (0.8-1.2)
[2020-08-22 05:56] LABS: Alanine Aminotransferase 71 U/L (0-33); Albumin Level 3.1 g/dL (3.5-5.2); Alkaline Phosphatase 63 IU/L (35-105); Anion Gap 12.7 (5-19); Aspartate Amino Transferase 134 U/L (0-32); Blood Urea Nitrogen 5 mg/dL (6-20); Calcium 8.7 mg/dL (8.5-10.5); Carbon Dioxide 25 mmol/L (22-29); Chloride 106 mmol/L (98-107); Creatinine Clr Calc Pharmacy 152.0548; Globulin 2.2 g/dL (1.3-4.6); Glomerular Filtration Rate 97.6 mL/min (90-130); Glucose 102 mg/dL (65-115); Magnesium 1.2 mg/dL (1.7-2.3); Osmolality Calculated 287 mOsm/kg (285-295); Potassium 3.7 mmol/L (3.5-5.1); Sodium 140 mmol/L (136-145); Total Protein 5.3 g/dL (6.6-8.7)
[2020-08-22 06:07] LABS: Glucose Point of Care 138 mg/dL (70-110)
--- NOTE | 2020-08-22 07:11 | PC.NURSE ---
Shift Summary pt was requesting for nursing staff to do her CIWA assessment right at every four hours and asking for her ativan. pt was educated that she did not have PRN ativan for anxiety that it could only be given per protocol. pt almost seemed as if she was making her hands look as if they were tremoring. pt was having intermittent periods of being drenched in sweat. pt only complained of headache when prompted by multiple questions, then asked for tylenol and stated she was okay without it as long as she got her ativan.
[2020-08-22] MEDS: enoxaparin 40 mg/0.4 mL Syringe SUBCUT (10:31)
[2020-08-22] MEDS: folic acid 1 mg Tablet PO (10:32)
[2020-08-22] MEDS: potassium chloride ER 20 mEq Tablet 40 MEQ PO (10:33)
[2020-08-22] MEDS: pantoprazole DR 40 mg Tablet PO (10:33)
[2020-08-22] MEDS: thiamine 100 mg Tablet PO (10:33)
[2020-08-22] MEDS: lisinopril 10 mg Tablet PO (10:33)
[2020-08-22] MEDS: hydroCHLOROthiazide 25 mg Tablet 12.5 MG PO (10:33)
[2020-08-22] MEDS: multivitamin therapeutic Tablet 1 TAB PO (10:33)
[2020-08-22] MEDS: magnesium sulfate premix 4 GM/100 ML PREMIX IV (10:38)
[2020-08-22 11:06] LABS: Glucose Point of Care 102 mg/dL (70-110)
[2020-08-22] MEDS: chlordiazePOXIDE 25 mg Capsule PO (13:58)
--- NOTE | 2020-08-22 15:42 | P.PN_ITS ---
Subjective Subjective: Interval history: Wendy feels like she is doing okay but burning inside. She is wondering if she is withdrawing. She is required less and less Ativan. She feels more anxious than anything. Psychiatry has seen her and believes she would be a good candidate for inpatient alcohol rehab. Patient has been agreeing to go, but no beds have been found currently. Last dose of IV Ativan was this morning around 4:30 AM. She has been asking for Ativan every 4 hours but she is not scoring significantly high on her CiWA. She has not had Ativan through the day and it is currently around 3:40 PM. She states she feels as if she sees something out of the corner of her eye that might be an hallucination. Nursing who is familiar with her alert to me that this is a frequent complaint. Medications: Reviewed: Yes Vitals/I&O/Wt Last Vital Signs Temp 98.2 F 08/22/20 11:55 Pulse 92 08/22/20 11:55 Resp 16 08/22/20 11:55 BP 133/92 08/22/20 11:55 Pulse Ox 97 08/22/20 11:55 08/22/20 08/22/20 08/22/20 06:59 14:59 22:59 Intake Total 960 / 3695 1550 / 1550 Balance 960 / 3520 1550 / 1550 Weight last 48 hrs Weight 124.738 kg Physical Exam Narrative: EXAM NARRATIVE: General exam is a white female, no distress. Neurologic: No focal deficits, wakes briefly to verbal stimuli and then goes back to sleep HEENT: Atraumatic. Neck supple no lymphadenopathy or thyromegaly Cardiovascular regular rate and rhythm without murmur Lungs a few bilateral wheezes Abdomen is soft with positive bowel sounds, obese Extremities no cyanosis clubbing or edema Data : 08/22/20 04:52 08/22/20 04:52 A&P Assessment and plan (1) Alcohol withdrawal syndrome: [facility] protocol Monitor for withdrawal Thiamine, folate It appears psychiatric consultation has been ordered from the emergency department and they have written a past history of schizophrenia although I cannot confirm this. Patient had reported seizure prior to coming in, although this cannot be confirmed. Acute encephalopathy associated with alcohol withdrawal has not yet resolved. From my understanding patient was having active hallucinations on admission as well. She has significantly improved. Status: Acute Qualifiers: Complication of substance-induced condition: with delirium Qualified Code(s): F10.231 - Alcohol dependence with withdrawal delirium (2) Chronic alcohol abuse: Alcohol level 0 on admission Status: Chronic (3) Hypokalemia: Supplement Associated with hypomagnesemia. Still significantly low today. IV ordered. Status: Acute (4) Hepatitis C antibody positive in blood: Status: Chronic (5) Type 2 diabetes mellitus with hyperglycemia: Status: Chronic Additional A&P Information Thrombocytopenia, elevated MCV, elevated LFTs. This could be secondary to underlying liver disease, alcohol bone marrow suppression, etc. ammonia level and B12 level checked and normal. Tobacco dependency. Counseled on abstinence. Full code SCDs for DVT prophylaxis Attestations Medical Necessity Statement*: Needs continued hospitalization for electrolyte replacement in the form of magnesium, while awaiting inpatient rehabilitation to be arranged in this patient with chronic alcoholism with high risk for relapse. Coding Level of Care Code Acute Managed Care Liaison for Bartolo Lund Diagnoses Alcohol withdrawal syndrome F10.231 Complication of substance-induced condition: with delirium Chronic alcohol abuse F10.10 Hypokalemia E87.6 Hepatitis C antibody positive in blood R76.8 Type 2 diabetes mellitus with hyperglycemia E11.65
[2020-08-22 16:57] LABS: Glucose Point of Care 104 mg/dL (70-110)
[2020-08-22 21:04] LABS: Glucose Point of Care 149 mg/dL (70-110)
[2020-08-22] MEDS: sodium chlor 0.9% + KCl 20 mEq 20 MEQ/1,000 ML BAG 50 MEQ IV (21:58)
[2020-08-22] MEDS: trazodone 100 mg Tablet PO (21:59)
[2020-08-22] MEDS: prazosin 1 mg Capsule PO (21:59)
[2020-08-23] VITALS: BP 105/74; PULSE 78; RESP 16; TEMP 37.1; O2SAT 95
[2020-08-23 04:00] VITALS: BP 130/94; PULSE 80; RESP 16; TEMP 37; O2SAT 94
--- NOTE | 2020-08-23 04:59 | PC.NURSE ---
SHIFT NOTE pt rested in bed since after 10 pm CIWA, pt has verbalized having tremors and sweating, no evidence of this noted during assessment and patient having conversation with staff. pt anxious and firmly asks about ativan. one dose of ativan received based on CIWA score. patient also verbalized emesis and evidence noted in bathroom trash, no emesis since 10 pm
[2020-08-23] MEDS: venlafaxine ER (24HR) 75 mg Capsule PO (06:19)
[2020-08-23 06:32] LABS: Glucose Point of Care 97 mg/dL (70-110)
[2020-08-23 08:00] VITALS: BP 125/88; PULSE 80; RESP 18; TEMP 36.6; O2SAT 95
[2020-08-23] MEDS: pantoprazole DR 40 mg Tablet PO (08:25)
[2020-08-23] MEDS: folic acid 1 mg Tablet PO (08:25)
[2020-08-23] MEDS: hydroCHLOROthiazide 25 mg Tablet 12.5 MG PO (08:26)
[2020-08-23] MEDS: lisinopril 10 mg Tablet PO (08:26)
[2020-08-23] MEDS: thiamine 100 mg Tablet PO (08:26)
[2020-08-23] MEDS: enoxaparin 40 mg/0.4 mL Syringe SUBCUT (08:26)
[2020-08-23] MEDS: multivitamin therapeutic Tablet 1 TAB PO (08:26)
--- NOTE | 2020-08-23 08:43 | PM.DCS ---
Discharge Providers Date of Admission: 08/22/20 15:50 Date of Discharge: August 23, 2020 Attending Provider at Admission: Celina Medrano MD Attending Provider at Discharge: Martin Dominguez MD Primary Care Provider: VIR[place] Choudhary Diagnoses at Discharge Discharge Diagnosis (1) Alcohol withdrawal syndrome: Status: Acute Qualifiers: Complication of substance-induced condition: with delirium Qualified Code(s): F10.231 - Alcohol dependence with withdrawal delirium (2) Chronic alcohol abuse: Status: Chronic (3) Hypokalemia: Status: Acute (4) Hepatitis C antibody positive in blood: Status: Chronic (5) Type 2 diabetes mellitus with hyperglycemia: Status: Chronic Reason for Visit Reason for Visit: HEARING THINGS Hospital Course Hospital Course Ms. Foss presented to the emergency department with complaints of alcohol withdrawal, hallucinations. She was placed in the hospital on CIWA protocol. Psychiatry was consulted. She had electrolyte abnormalities such as hypomagnesemia and hypokalemia which was supplemented. She improved rather quickly, and attempts were made for inpatient rehabilitation which she agreed to. This was facilitated through discharge planning, and she is to go to [facility] on discharge here for placement at an inpatient facility. At the time of discharge she is stable, with stable vital signs. She denies any active hallucinations. Other medical problems include leukopenia, thrombocytopenia consistent with her alcoholism. Elevated LFTs consistent with alcoholism and/or hepatitis C. Diabetes is currently controlled on her chronic medications. She was counseled on tobacco cessation. Physical Exam Narrative: EXAM NARRATIVE: General exam is no apparent distress Cardiovascular regular rate and rhythm without murmur Lungs a few faint expiratory wheezes Abdomen is soft nontender with positive bowel sounds Extremities no cyanosis clubbing or edema Discharge Data Data Completed and Pending: Completed Studies During Hospitalization Category Date Time Status XR chest 1V april ble [id number] Urgent Exams 08/20/20 21:46 Completed Labs from last 24 hours 08/23/20 08/22/20 08/22/20 06:26 20:55 16:52 POC Glucose 97 149 H 104 08/22/20 10:50 POC Glucose 102 Vitals: Last Vital Signs Temp 97.9 F 08/23/20 08:00 Pulse 80 08/23/20 08:00 Resp 18 08/23/20 08:00 BP 125/88 08/23/20 08:00 Pulse Ox 95 08/23/20 08:00 Discharge Plan Discharge Condition: Stable Prescriptions: Continued albuterol sulfate [ProAir HFA] 90 mcg/actuation HFA aerosol inhaler 2 puff inhalation QID PRN (Reason: shortness of breath or wheezing) 30 Days Qty: 6.7 RF: 2 fluticasone propion-salmeterol [Advair Diskus] 250-50 mcg/dose blister with device 1 inh inhalation BID Qty: 60 RF: 2 folic acid 1 mg tablet 1 mg PO DAILY 30 Days Qty: 30 RF: 2 metformin 500 mg tablet extended release 24hr 1,000 mg PO DAILY 30 Days Qty: 60 RF: 2 prazosin 1 mg capsule 1 mg PO BEDTIME 30 Days Qty: 30 RF: 2 trazodone 100 mg tablet 100 mg PO BEDTIME 30 Days Qty: 30 RF: 2 naltrexone 50 mg tablet 50 mg PO DAILY Qty: 30 RF: 0 lisinopril-hydrochlorothiazide 10-12.5 mg tablet 1 tab PO DAILY Qty: 30 RF: 0 venlafaxine [Effexor XR] 75 mg capsule,extended release 24hr 75 mg PO QAM Qty: 30 RF: 2 ondansetron HCl [Zofran] 4 mg tablet 4 mg PO Q12H PRN (Reason: nausea ) Qty: 14 RF: 0 potassium chloride 10 mEq capsule, extended release 10 meq PO DAILY Qty: 30 RF: 2 nicotine 21 mg/24 hr Patch 24 Hour 1 patch transdermal DAILY 28 Days Qty: 28 RF: 1 (DME) nebulizer accessories Kit See Rx Instructions .ROUTE .MEDSUPPLY Qty: 1 RF: 0 thiamine mononitrate (vit B1) [Vitamin B-1 (mononitrate)] 100 mg Tablet 100 mg PO DAILY 30 Days Qty: 30 RF: 1 multivitamin with folic acid [Thera] 400 mcg Tablet 1 tab PO DAILY 30 Days Qty: 30 RF: 1 dicyclomine 20 mg tablet 20 mg PO QID Qty: 20 RF: 0 famotidine [Pepcid] 20 mg tablet 20 mg PO BID Qty: 60 RF: 0 epinephrine [EpiPen 2-Gerardo] 0.3 mg/0.3 mL auto-injector 0.3 mg IM Q10M PRN (Reason: anaphylaxis) 30 Days Qty: 2 RF: 1 Carafate 1 gram tablet 1 g PO BID RF: 0 Discontinued lorazepam [Ativan] 1 mg tablet 1 mg PO BID Qty: 14 RF: 3 Discharge Orders: Discharge Order (Routine); Ordered 08/23/20 Ordered By: Martin Dominguez Referrals: [facility] [Other] ([facility] for [facility] and [facility]. The will be able to set you up with housing such as a chcf and from there you will be assisted with going to a drug and alcohol rehabilitation center. [facility] has womans programs that can assist you. Please call or visit [facility] at your earliest convienence. They are open M-W 9AM-5PM 10AM-5PM Friday 9AM-5PM. ) Discharge Diet: Regular Discharge Activity: Increase activity as tolerated Patient Instructions: Opioid Safety Activity Restrictions/Additional Instructions: 1. We have reached out to multiple alcohol inpatient residential care facilities and all are full. Your information has been given to [facility] Burnett in [place] [phone]. You are asked to call them on morning 08/24/20 to see if any bed availability. Please be sure to call. 2. You have been placed on a waiting list for [facility]. Please follow up by end of week to ensure they know you are still interested. Their number is [phone]. 3.You can also reconsider reaching out to [facility] at [phone]. 4. Please discuss with David Villar about ordering another sleep study so you can get a sleep machine ordered now that you have insurance if you qualify. 5. David will see you for follow up but is not willing to order your medications due to history. 6. If you want to change providers can reach out to either [facility] clinic in [place] at [phone], [facility] in [facility] [phone] Garces/ Ailyn Ferguson [facility] at [phone] 7. Medicaid Transport phone: . Transport requires you to schedule rides at least 3 business days prior to appointments. Please coordinate discharge with discharge planning. She is being [facility], directly from the hospital for inpatient rehabilitation. Do not discharge until transportation, etc. as arranged for this referral. Discharge Attestations Time Spent in Discharge Care*: greater than 30 min Status at Discharge: Cognitive status at discharge: cognitively intact, Behavioral status at discharge: cooperative, Quality Metrics Clinical Quality Measures During this hospital stay, did patient experience: None Coding Level of Care Code Acute Chg FW DC note Diagnoses Alcohol withdrawal syndrome F10.231 Complication of substance-induced condition: with delirium Chronic alcohol abuse F10.10 Hypokalemia E87.6 Hepatitis C antibody positive in blood R76.8 Type 2 diabetes mellitus with hyperglycemia E11.65
--- NOTE | 2020-08-23 10:59 | PC.CHAP ---
Pastoral Care Encounter/Spiritual Assessment Type of Contact [] Declined remnant sorter visit [] Patient/Family/Request visit [] Outpatient visit [] Follow-up visit [] Physician referral [] Code/Alert [x] Routine visit [] Staff referral [] Actively dying [] Patient sleeping [] Family support [] [] Out of room [] Palliative care [] [] Receiving care in room [] Pre-surgical visit [] Trauma [] Long length of stay [] ICU visit [] Other: Relational/Emotional Strength [] Patient feels connected with others/family/visitors/staff [] Distress [] Loneliness/isolation [] Abandonment Spirituality of Patient [x] Person of [place] [] Attends Mosque of their Elsa [x] Believes in Prayer [] Reads Bible or Sikh materials [] There are Spiritual issues to be addressed Automation Application Engineer Interventions x [x] Prayer [] Active listening [x] Non-anxious presence [] Spiritual/emotional support [] Crisis/trauma care [] Spiritual counseling [] Bereavement support [] Provided bereavement packet [] Provided Bible/devotional materials [] Provided toy/stuffed animal, coloring book to patient or family member [] Provided Communion [] Anointing/[place] [] Salvation [] Completed spiritual assessment [] Other: Impact on Illness or Injury [] Angry [] Fearful [] Anxious [] Often cries [] Exhaustion [] Unable to work [] Unable to attend quaker [] Unable to walk/stand [] Unable to read [] Unable to drive [] Unable to eat/drink [] Unable to sleep [] Unable to be with family [] Patient intubated [] Other: Summary patient needs alots of rehap and aweeky group program Time spent with patient 20 min
[2020-08-23 11:04] LABS: Glucose Point of Care 97 mg/dL (70-110)
[2020-08-23 11:25] VITALS: BP 144/106; PULSE 77; RESP 15; TEMP 36.9; O2SAT 97
[2020-08-23 12:00] VITALS: BP 144/106; PULSE 77; RESP 15; TEMP 36.9
[2020-08-23] MEDS: LORazepam 2 mg Tablet PO (12:45)
[2020-08-23 15:37] VITALS: BP 144/106; PULSE 77; RESP 15; TEMP 36.9
== END 2020-08-23 15:40 | disposition home or self-care (01) | DRG 897 ==
LOC: ER 08-21 00:30 → ICU 08-21 01:53 → MEDSURG 08-21 19:46
PROVIDERS: Admitting Provider Hospitalist; Emergency Provider Family Medicine; Family Provider Nurse Practitioner; PCP Nurse Practitioner; Visit Provider Internal Medicine
DX: F10.131 Alcohol abuse with withdrawal delirium (principal); Z68.42 Body mass index [BMI] 45.0-49.9, adult; R45.851 Suicidal ideations; F33.9 Major depressive disorder, recurrent, unspecified; E66.9 Obesity, unspecified; S90.822A Blister (nonthermal), left foot, initial encounter; S90.821A Blister (nonthermal), right foot, initial encounter; X58.XXXA Exposure to other specified factors, initial encounter; J44.9 Chronic obstructive pulmonary disease, unspecified; I10 Essential (primary) hypertension; M79.7 Fibromyalgia; F41.1 Generalized anxiety disorder; B18.2 Chronic viral hepatitis C; E04.1 Nontoxic single thyroid nodule; F11.10 Opioid abuse, uncomplicated; F43.10 Post-traumatic stress disorder, unspecified; D69.59 Other secondary thrombocytopenia; F17.210 Nicotine dependence, cigarettes, uncomplicated; E87.6 Hypokalemia; E83.42 Hypomagnesemia; Z79.51 Long term (current) use of inhaled steroids; E11.65 Type 2 diabetes mellitus with hyperglycemia
CPT/HCPCS: 36415; 36416; 71045; 80048; 80053; 80306; 80307; 81003; 82140; 82607; 82962; 83735; 84100; 84443; 85025; 85610; 93005; 94640; 96365; 96367; 96372; 96375; 99285; G0378; J1650; J1815; J2060; J2405; J3411; J3475; J3480; J7030

== ENCOUNTER 2020-09-09 23:37 | Emergency (ER) | payer MEDICAID, SELFPAY ==
[2020-09-09 23:53] VITALS: BP 135/91; PULSE 87; RESP 16; TEMP 36.7; O2SAT 99; BMI 42.9
[2020-09-09 23:58] VITALS: BP 135/91; PULSE 98; RESP 24; O2SAT 100
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
[2020-09-10 00:38] LABS: Amphetamines Screen Urine Positive (Negative); Barbiturates Screen Urine Negative (Negative); Benzodiazepines Screen Urine Negative (Negative); Cocaine Screen Urine Negative (Negative); Opiate Screen Urine Negative (Negative); PCP Screen Urine Negative (Negative); THC Screen Urine Negative (Negative)
[2020-09-10 00:52] LABS: Add Urine Microscopic? YES; Bilirubin Urine Neg (Negative); Blood Urine 2+ (Negative); Glucose Urine UA Norm (Normal); Ketones Urine Negative (Negative); Leukocyte Esterase Urine Negative (Negative); Nitrate Urine Negative (Negative); Protein Urine 1+ (Negative); Urine Color Yellow (Yellow); Urobilinogen Urine Norm (Negative); pH Urine 5 (5-7)
[2020-09-10 00:54] LABS: Add Urine Culture? No; Bacteria Urine 2+ /hpf; Squamous Epithelial Cell Urine >100 /hpf (0-5); WBC Urine 0-4 /hpf (0-5)
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
[2020-09-10] MEDS: ondansetron 2 mg/ML SDV 2 mL 4 MG IVP (01:30)
[2020-09-10 01:38] VITALS: RESP 22; O2SAT 99
[2020-09-10] MEDS: fentaNYL 50 mcg/mL INJ 2mL IVP ×2 (01:38→04:15)
[2020-09-10 01:58] VITALS: BP 129/85; PULSE 84; RESP 20; O2SAT 96
[2020-09-10 04:15] VITALS: RESP 16; O2SAT 100
[2020-09-10 04:28] VITALS: BP 116/68; PULSE 70; RESP 16; O2SAT 99
[2020-09-10 04:30] VITALS: BP 116/86; PULSE 70; RESP 16; O2SAT 99
== END 2020-09-10 04:32 | disposition short-term general hospital (02) ==
PROVIDERS: Emergency Provider Emergency Medicine; PCP Nurse Practitioner
DX: S06.4X9A Epidural hemorrhage with loss of consciousness of unspecified duration, initial encounter (principal); J44.9 Chronic obstructive pulmonary disease, unspecified; I10 Essential (primary) hypertension; Z86.19 Personal history of other infectious and parasitic diseases; F17.210 Nicotine dependence, cigarettes, uncomplicated; Y04.2XXA Assault by strike against or bumped into by another person, initial encounter
CPT/HCPCS: 70450; 72125; 72131; 80306; 81001; 81025; 96374; 96375; 96376; 99285; J2405; J3010

== ENCOUNTER 2020-12-04 05:50 | Emergency (ER) | payer MEDICAID, SELFPAY ==
[2020-12-04 05:55] VITALS: BP 170/86; PULSE 105; RESP 18; TEMP 36.7; O2SAT 97; BMI 34.3
[2020-12-04] MEDS: lactated ringers 1,000 ML 999 ML IV (06:15)
[2020-12-04 06:34] VITALS: BP 138/85; PULSE 84; RESP 18; O2SAT 95
[2020-12-04 06:37] LABS: Basophils % 0.3 %; Eosinophils # 0.2 10^3/uL (0.0-0.8); Eosinophils % 2.2 %; Hematocrit 38.3 % (37.0-47.0); Hemoglobin 12.5 g/dL (11.5-15.3); Lymphocytes # 1.3 10^3/uL (0.8-4.8); Lymphocytes % 18.4 %; Mean Corpuscular HGB Conc 32.6 g/dL (30.0-36.0); Mean Corpuscular Hemoglobin 33.1 pg (28.0-34.0); Mean Corpuscular Volume 101.3 fl (81-99); Mean Platelet Volume 9.6 fL (7.4-10.4); Monocytes # 0.5 10^3/uL (0.2-0.9); Monocytes % 6.5 %; Neutrophils # 5.15 10^3/uL (1.8-7.7); Neutrophils % 72.3 %; Nucleated Red Blood Cells % 0 %; Platelet Count 156 10^3/cmm (130-400); Red Blood Count 3.78 10^6/uL (4.1-5.3); Red Cell Distribution Width 12.7 % (12.1-15.1); White Blood Count 7.1 10^3/uL (4.0-10.0)
[2020-12-04 06:54] LABS: Alanine Aminotransferase 51 U/L (0-33); Albumin Level 3.3 g/dL (3.5-5.2); Alkaline Phosphatase 63 IU/L (35-105); Anion Gap 11.1 (5-19); Aspartate Amino Transferase 69 U/L (0-32); Blood Urea Nitrogen 11 mg/dL (6-20); C Reactive Protein 0.5 mg/L (0.0-4.9); Calcium 8.3 mg/dL (8.5-10.5); Carbon Dioxide 27 mmol/L (22-29); Chloride 104 mmol/L (98-107); Creatinine Clr Calc Pharmacy 148.2125; Globulin 3.2 g/dL (1.3-4.6); Glomerular Filtration Rate 116.6 mL/min (90-130); Glucose 89 mg/dL (65-115); Lipase 35 U/L (13-60); Magnesium 1.5 mg/dL (1.7-2.3); Osmolality Calculated 285 mOsm/kg (285-295); Potassium 4.1 mmol/L (3.5-5.1); Sodium 138 mmol/L (136-145); Total Bilirubin 0.3 mg/dL (0.15-1.2); Total Protein 6.5 g/dL (6.6-8.7)
[2020-12-04 06:55] LABS: Acetaminophen < 5.0 ug/mL (10-30); Alcohol Level < 10 mg/dL (0-10); Salicylate < 0.3 mg/dL (3-10)
[2020-12-04 07:02] LABS: HCG, Serum Qual Negative (Negative)
--- NOTE | 2020-12-04 07:06 | ED_ITS ---
HPI - General Adult General: Chief complaint: General Medical Stated complaint: DRINKING Time Seen by Provider: 12/04/20 05:55 History of Present Illness: HPI narrative: 30-year-old female presents emergency room via EMS. She admits to being highly intoxicated through the weekend. She also admits to having done various recreational drugs. She had recently been discharged from an unsuccessful stay at inpatient rehab. She is complaining of some low back pain and generally not feeling well and somewhat nauseous. She states that she was intoxicated on various substances to the point where she got a new tattoo on her upper chest that she does not recall getting. She denies any shortness of breath denies any rosalia abdominal pain no dysuria urgency or frequency she is not aware of any trauma. Onset (ago): minute(s) Severity: mild Relieving factors: none Exacerbating factors: none Associated symptoms: Reports decreased appetite, headache(s), malaise and nausea; Deny chest pain, confusion, cough, diaphoresis, dyspnea, fevers/chills, rash, palpitations, seizures, short of breath, syncope, vomiting or weakness Treatments prior to arrival: none Review of Systems Const: Reports: malaise; Denies: diaphoresis ENMT: Denies: throat pain, ear or mastoid pain, nasal discharge or nasal congestion Card: Denies: chest pain, palpitations or syncope Resp: Denies: dyspnea GI: Reports: nausea; Denies: vomiting : Denies: flank pain, difficulty voiding, dysuria, urinary frequency or urinary urgency Skin/Breast: Denies: rash Neuro: Reports: headache(s); Denies: confusion PFSH ED PFSH: Medical History Alcohol abuse with alcohol-induced mood disorder Breast lump COPD (chronic obstructive pulmonary disease) Essential (primary) hypertension not on any chronic treatment 09/26 Family history of alpha 1 antitrypsin deficiency Fibromyalgia Generalized anxiety disorder H/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, includes meth, heroin, others, on buprenorphine Hepatitis C antibody positive in blood Hx of abscess of skin and subcutaneous tissue right arm Major depressive disorder, recurrent, moderate Nontoxic thyroid nodule Opioid abuse Polycystic ovarian syndrome polycystic ovaries not notated on CT abdomen/pelvis 01/26 Posttraumatic stress disorder Thrombocytopenia Tobacco dependency Unspecified asthma, uncomplicated onset in childhood Surgical History Hx of cholecystectomy Family History Other Aakdi-1-[id number] deficiency Drug abuse, amphetamine type Hypertension Social History Smoking and tobacco status: current every day smoker cigarettes Packs smoked per day: 1.5 Years cigarettes smoked: 15 Quit status (tobacco): considering quitting Second hand smoke exposure: Yes Alcohol intake: current Alcohol intake frequency: 3 or more drinks per day Alcohol type: hard liquor Other details last substance use: Has used methamphetamine, heroin, pain medications. Adopted: No Caregiver/support person: No Lives independently: Yes Household members: friend(s) Housing: Manufactured/Mobile home Marital status: Single Number of children: 2 service: No Current occupational status: unemployed History of recent travel: No Current gender identity: Female Female Reproductive History: Para: 2 Physical Exam Const: COMMON NORMALS: no acute distress GENERAL APPEARANCE: cooperative and comfortable ORIENTATION/CONSCIOUSNESS: Yes awake, Yes oriented to person, Yes oriented to place and Yes oriented to time HENMT: COMMON NORMALS: normocephalic, atraumatic and hearing grossly normal bilaterally HEAD & SCALP: normocephalic and atraumatic Neck/C-Spine: COMMON NORMALS: no JVD Resp: COMMON NORMALS: normal respiratory effort, No retractions, No use of accessory muscles and clear to auscultation bilaterally AUSCULTATION: clear to auscultation bilaterally Cardio: COMMON NORMALS: no JVD, regular rate, regular rhythm and No murmurs present (Cardio) RATE: regular rate RHYTHM: regular rhythm GI: COMMON NORMALS: Soft to palpation and No hepatosplenomegaly present AUSCULTATION: Yes normoactive bowel sounds PALPATION: Yes Soft to palpation, No Tenderness to palpation present (GI), No Guarding due to palpation present (GI) and Yes No hepatosplenomegaly present Extremity: COMMON NORMALS: normal to inspection, capillary refill normal, no clubbing, cyanosis or edema, no calf tenderness and no pedal edema Neuro: SENSORIUM/ORIENTATION: Yes oriented to person, Yes oriented to place and Yes oriented to time Skin: COMMON NORMALS: no rashes or lesions noted GENERAL SKIN EXAM: no rashes or lesions noted Course Vital Signs: Vital signs: Vital Signs Temperature 98.1 F 12/04/20 05:55 Pulse Rate 84 12/04/20 06:34 Respiratory Rate 18 12/04/20 06:34 Blood Pressure 138/85 12/04/20 06:34 Pulse Oximetry 95 12/04/20 06:34 MDM - General Adult MDM Narrative: Medical decision making narrative: Reviewed labs imaging and EKG as on the chart. Patient is generally is not feeling well because of her recent and vitamins. Encourage the patient to pursue alcohol and drug abstinence and to reenroll in a program since this most recent attempt seems to have failed. Her response would seem to indicate it is very unlikely that she will be pursuing this course of action. Lab Data: Labs: Lab Results 12/04/20 12/04/20 12/04/20 06:30 06:30 06:30 WBC 7.1 10^3/uL 10^3/ uL (4.0-10.0) RBC 3.78 10^6/uL L 10 ^6/uL (4.1-5.3) Hgb 12.5 g/dL g/dL (11.5-15.3) Hct 38.3 % % (37.0-47.0) MCV 101.3 fl H fl (81-99) MCH 33.1 pg pg (28.0-34.0) MCHC 32.6 g/dL g/dL (30.0-36.0) RDW 12.7 % % (12.1-15.1) Plt Count 156 10^3/cmm 10^3 /cmm (130-400) MPV 9.6 fL fL (7.4-10.4) Neut % (Auto) 72.3 % % Lymph % (Auto) 18.4 % % [place] % (Auto) 6.5 % % Eos % (Auto) 2.2 % % Baso % (Auto) 0.3 % % Neut # (Auto) 5.15 10^3/uL 10^3 /uL (1.8-7.7) Lymph # (Auto) 1.3 10^3/uL 10^3/ uL (0.8-4.8) [place] # (Auto) 0.5 10^3/uL 10^3/ uL (0.2-0.9) Eos # (Auto) 0.2 10^3/uL 10^3/ uL (0.0-0.8) Baso # (Auto) 0.0 10^3/uL 10^3/ uL (0.0-0.1) Nucleated RBC % (a uto) 0 % % Nucleated RBCs # 0.0 /100WBC /100W BC Sodium 138 mmol/L mmol/L (136-145) Potassium 4.1 mmol/L mmol/L (3.5-5.1) Chloride 104 mmol/L mmol/L (98-107) Carbon Dioxide 27 mmol/L mmol/L (22-29) Anion Gap 11.1 (5-19) BUN 11 mg/dL mg/dL (6-20) Creatinine 0.6 mg/dL mg/dL (0.5-0.9) GFR Calculation 116.6 mL/min mL/m in (90-130) Glucose 89 mg/dL mg/dL (65-115) Calculated Osmolal ity 285 mOsm/kg mOsm/ kg (285-295) Calcium 8.3 mg/dL L mg/dL (8.5-10.5) Magnesium 1.5 mg/dL L mg/dL (1.7-2.3) Total Bilirubin 0.3 mg/dL mg/dL (0.15-1.2) AST 69 U/L H U/L (0-32) ALT 51 U/L H U/L (0-33) Alkaline Phosphata se 63 IU/L IU/L (35-105) C-Reactive Protein 0.5 mg/L mg/L (0.0-4.9) Total Protein 6.5 g/dL L g/dL (6.6-8.7) Albumin 3.3 g/dL L g/dL (3.5-5.2) Globulin 3.2 g/dL g/dL (1.3-4.6) Lipase 35 U/L U/L (13-60) HCG, Qual Negative (Negative) Urine Color Urine Appearance Urine pH Ur Specific Gravit y Urine Protein Urine Glucose (UA) Urine Ketones Urine Blood Urine Nitrate Urine Bilirubin Urine Urobilinogen Ur Leukocyte Louisa ase Urine RBC Urine WBC Ur Squamous Epith Cells Amorphous Sediment Urine Bacteria Salicylates < 0.3 mg/dL L mg/ dL (3-10) Urine Opiates Scre en Acetaminophen < 5.0 ug/mL L ug/ mL (10-30) Ur Barbiturates Sc reen Ur Phencyclidine S crn Ur Amphetamines Sc reen U Benzodiazepines Scrn Urine Cocaine Scre en U Marijuana (THC) Screen Ethyl Alcohol < 10 mg/dL mg/dL (0-10) 12/04/20 12/04/20 07:24 07:24 WBC RBC Hgb Hct MCV MCH MCHC RDW Plt Count MPV Neut % (Auto) Lymph % (Auto) [place] % (Auto) Eos % (Auto) Baso % (Auto) Neut # (Auto) Lymph # (Auto) [place] # (Auto) Eos # (Auto) Baso # (Auto) Nucleated RBC % (a uto) Nucleated RBCs # Sodium Potassium Chloride Carbon Dioxide Anion Gap BUN Creatinine GFR Calculation Glucose Calculated Osmolal ity Calcium Magnesium Total Bilirubin AST ALT Alkaline Phosphata se C-Reactive Protein Total Protein Albumin Globulin Lipase HCG, Qual Urine Color Red (Yellow) Urine Appearance Cloudy (CLEAR) Urine pH 6.5 (5-7) Ur Specific Gravit y 1.015 (1.005-1.030) Urine Protein 2+ H (Negative) Urine Glucose (UA) Norm (Normal) Urine Ketones Negative (Negative) Urine Blood 3+ H (Negative) Urine Nitrate Negative (Negative) Urine Bilirubin Neg (Negative) Urine Urobilinogen 1 mg/dL H mg/dL (Negative) Ur Leukocyte Louisa ase 2+ H (Negative) Urine RBC 80-100 /hpf H /hp f (0-2) Urine WBC 10-15 /hpf H /hpf (0-5) Ur Squamous Epith Cells 5-10 /hpf H /hpf (0-5) Amorphous Sediment Not Reportable Urine Bacteria 2+ /hpf H /hpf (NONE) Salicylates Urine Opiates Scre en Negative ng/mL ng /mL (Negative) Acetaminophen Ur Barbiturates Sc reen Negative ng/mL ng /mL (Negative) Ur Phencyclidine S crn Negative ng/mL ng /mL (Negative) Ur Amphetamines Sc reen Negative ng/mL ng /mL (Negative) U Benzodiazepines Scrn Negative ng/mL ng /mL (Negative) Urine Cocaine Scre en Negative ng/mL ng /mL (Negative) U Marijuana (THC) Screen Negative ng/mL ng /mL (Negative) Ethyl Alcohol Discharge Plan Discharge Patient Disposition: Home Clinical Impression: Substance abuse Condition: Stable Prescriptions: No Action albuterol sulfate [ProAir HFA] 90 mcg/actuation HFA aerosol inhaler 2 puff inhalation QID PRN (Reason: shortness of breath or wheezing) 30 Days Qty: 6.7 RF: 2 fluticasone propion-salmeterol [Advair Diskus] 250-50 mcg/dose blister with device 1 inh inhalation BID Qty: 60 RF: 2 folic acid 1 mg tablet 1 mg PO DAILY 30 Days Qty: 30 RF: 2 metformin 500 mg tablet extended release 24hr 1,000 mg PO DAILY 30 Days Qty: 60 RF: 2 prazosin 1 mg capsule 1 mg PO BEDTIME 30 Days Qty: 30 RF: 2 trazodone 100 mg tablet 100 mg PO BEDTIME 30 Days Qty: 30 RF: 2 naltrexone 50 mg tablet 50 mg PO DAILY Qty: 30 RF: 0 lisinopril-hydrochlorothiazide 10-12.5 mg tablet 1 tab PO DAILY Qty: 30 RF: 0 venlafaxine [Effexor XR] 75 mg capsule,extended release 24hr 75 mg PO QAM Qty: 30 RF: 2 ondansetron HCl [Zofran] 4 mg tablet 4 mg PO Q12H PRN (Reason: nausea ) Qty: 14 RF: 0 permethrin 5 % cream 1 applic topical Q14D Qty: 60 RF: 0 prednisone 20 mg tablet 20 mg PO BID Qty: 6 RF: 0 fluconazole [Diflucan] 150 mg tablet 150 mg PO Q3D Qty: 2 RF: 0 potassium chloride 10 mEq capsule, extended release 10 meq PO DAILY Qty: 30 RF: 2 nicotine 21 mg/24 hr Patch 24 Hour 1 patch transdermal DAILY 28 Days Qty: 28 RF: 1 (DME) nebulizer accessories Kit See Rx Instructions .ROUTE .MEDSUPPLY Qty: 1 RF: 0 thiamine mononitrate (vit B1) [Vitamin B-1 (mononitrate)] 100 mg Tablet 100 mg PO DAILY 30 Days Qty: 30 RF: 1 multivitamin with folic acid [Thera] 400 mcg Tablet 1 tab PO DAILY 30 Days Qty: 30 RF: 1 dicyclomine 20 mg tablet 20 mg PO QID Qty: 20 RF: 0 famotidine [Pepcid] 20 mg tablet 20 mg PO BID Qty: 60 RF: 0 epinephrine [EpiPen 2-Gerardo] 0.3 mg/0.3 mL auto-injector 0.3 mg IM Q10M PRN (Reason: anaphylaxis) 30 Days Qty: 2 RF: 1 Carafate 1 gram tablet 1 g PO BID RF: 0 Discharge Orders: Discharge ED (Routine); Ordered 12/04/20 Ordered By: Jeyson Amador Referrals: David Villar, [employer] [Primary Care Provider] - Discharge Diet: Usual diet Discharge Activity: Resume usual activity Patient Instructions: Opioid Safety Activity Restrictions/Additional Instructions: Recommend abstinence from drugs and alcohol. Coding Level of Care Code ED Senior Climate Advisor for Bartolo Lund
--- NOTE | 2020-12-04 07:08 | XR_ITS ---
WS: [id number] Exam: XR lumbar spine 2-3V* [id number] Date/Time of Exam: 12/04/2020 7:08 AM Reason For Exam: low back pain Comparison 04/28/2013. No fracture or dislocation. Disc spaces are preserved. Posterior elements are intact. Minimal spondyl osis. XR/XR lumbar spine 2-3V* [id number] IMPRESSION: 1. No fracture or malalignment. Minimal degenerative change.
[2020-12-04 07:44] LABS: Amphetamines Screen Urine Negative (Negative); Barbiturates Screen Urine Negative (Negative); Benzodiazepines Screen Urine Negative (Negative); Cocaine Screen Urine Negative (Negative); Opiate Screen Urine Negative (Negative); PCP Screen Urine Negative (Negative); THC Screen Urine Negative (Negative)
[2020-12-04 07:50] LABS: Specific Gravity, Urine 1.015 (1.005-1.030); Urine Appearance Cloudy (CLEAR); Urine Color Red (Yellow); pH Urine 6.5 (5-7)
[2020-12-04 07:51] LABS: Add Urine Microscopic? YES; Bilirubin Urine Neg (Negative); Blood Urine 3+ (Negative); Glucose Urine UA Norm (Normal); Ketones Urine Negative (Negative); Leukocyte Esterase Urine 2+ (Negative); Nitrate Urine Negative (Negative); Protein Urine 2+ (Negative); Urobilinogen Urine 1 mg/dL (Negative)
[2020-12-04 07:57] LABS: RBC Urine 80-100 /hpf (0-2)
[2020-12-04 07:58] LABS: Bacteria Urine 2+ /hpf
[2020-12-04 07:59] LABS: Add Urine Culture? Yes
== END 2020-12-04 09:03 | disposition home or self-care (01) ==
PROVIDERS: Emergency Medicine; Emergency Provider Family Medicine; PCP Nurse Practitioner
DX: F19.10 Other psychoactive substance abuse, uncomplicated (principal); Z79.84 Long term (current) use of oral hypoglycemic drugs; J44.9 Chronic obstructive pulmonary disease, unspecified; I10 Essential (primary) hypertension; Z86.19 Personal history of other infectious and parasitic diseases; F17.210 Nicotine dependence, cigarettes, uncomplicated
CPT/HCPCS: 72100; 80053; 80306; 80307; 81001; 83690; 83735; 84703; 85025; 86140; 87086; 96360; 99284

== ENCOUNTER 2020-12-07 20:53 | Inpatient (IN) | payer MEDICAID, SELFPAY ==
[2020-12-07 20:54] VITALS: BP 138/90; PULSE 115; RESP 26; TEMP 36.9; O2SAT 97; BMI 39.4
--- NOTE | 2020-12-07 20:57 | XRR_ITS ---
PROCEDURE INFORMATION: Exam: XR Chest Exam date and time: 12/07/2020 8:57 PM Age: 30 years old Clinical indication: Shortness of breath; Additional info: Dyspnea TECHNIQUE: Imaging protocol: XR of the chest. Views: 1 view. COMPARISON: CR (CHEST, ) 08/20/2020 10:13 PM FINDINGS: Lungs: Unremarkable. No consolidation. Pleural spaces: Unremarkable. No pleural effusion. No pneumothorax. Heart/Mediastinum: Unremarkable. No cardiomegaly. Bones/joints: Unremarkable. XR/XR chest 1V portable [id number] IMPRESSION: No acute findings.
[2020-12-07] MEDS: ziprasidone hcl 40 mg Capsule PO (21:35)
[2020-12-07 22:15] LABS: Basophils % 0.2 %; Eosinophils % 0.1 %; Hematocrit 38.7 % (37.0-47.0); Hemoglobin 12.4 g/dL (11.5-15.3); Lymphocytes # 1.3 10^3/uL (0.8-4.8); Lymphocytes % 11.3 %; Mean Corpuscular Hemoglobin 32.3 pg (28.0-34.0); Mean Corpuscular Volume 100.8 fl (81-99); Mean Platelet Volume 9.7 fL (7.4-10.4); Monocytes # 0.5 10^3/uL (0.2-0.9); Monocytes % 4.2 %; Neutrophils # 9.93 10^3/uL (1.8-7.7); Neutrophils % 83.9 %; Nucleated Red Blood Cells % 0 %; Platelet Count 208 10^3/cmm (130-400); Red Blood Count 3.84 10^6/uL (4.1-5.3); Red Cell Distribution Width 12.7 % (12.1-15.1); White Blood Count 11.8 10^3/uL (4.0-10.0)
--- NOTE | 2020-12-07 22:34 | CTR_ITS ---
PROCEDURE INFORMATION: Exam: CTA Chest With Contrast Exam date and time: 12/07/2020 10:34 PM Age: 30 years old Clinical indication: Shortness of breath; Additional info: Rule out pe TECHNIQUE: Imaging protocol: Computed tomographic angiography of the chest with contrast. 3D rendering (Not supervised by radiologist): MIP and/or 3D reconstructed images were created by the technologist. Radiation optimization: All CT scans at this facility use at least one of these dose optimization techniques: automated exposure control; mA and/or kV adjustment per patient size (includes targeted exams where dose is matched to clinical indication); or iterative reconstruction. Contrast material: OMNI 350; Contrast volume: 65 ml; Contrast route: INTRAVENOUS (IV); COMPARISON: CTA Chest-Pulmonary Emb [id number] 10/08/2018 12:17 PM RADIATION DOSE METRICS: Total DLP (mGy-cm): 1809.38 FINDINGS: Pulmonary arteries: Normal. No pulmonary emboli. Aorta: Unremarkable. No aortic aneurysm. No aortic dissection. Lungs: Unremarkable. No consolidation. No masses. Pleural spaces: Unremarkable. No pneumothorax. No pleural effusion. Heart: Unremarkable. No cardiomegaly. No pericardial effusion. Lymph nodes: Unremarkable. No enlarged lymph nodes. Liver: Hepatic steatosis. Gallbladder and bile ducts: Cholecystectomy. Bones/joints: Unremarkable. No acute fracture. Soft tissues: Unremarkable. CT/CT angio chest PE protcl [id number] IMPRESSION: 1. Negative for pulmonary embolus or airspace infiltrate. 2. Hepatic steatosis. 3. Cholecystectomy. Radiation Dose CTDIVOL = (mGy): DLP = 1809.38 (mGy-cm)
[2020-12-07 22:35] LABS: Lactate (Lactic Acid level) 2.9 mmol/L (0.5-2.2)
[2020-12-07] MEDS: iohexol 350 mg/mL 100 mL Btl IV ×3 (22:48→22:55)
[2020-12-07 23:09] LABS: Blood Urea Nitrogen 7 mg/dL (6-20); Carbon Dioxide 12 mmol/L (22-29); Chloride 118 mmol/L (98-107); Glomerular Filtration Rate 259.5 mL/min (90-130); Glucose 59 mg/dL (65-115); Osmolality Calculated 294 mOsm/kg (285-295); Sodium 144 mmol/L (136-145)
[2020-12-07 23:16] LABS: Anion Gap 16.7 (5-19)
[2020-12-07 23:16] LABS: SARS Covid-2 Antigen Negative (Negative)
[2020-12-07 23:17] LABS: Calcium 4.5 mg/dL (8.5-10.5); Potassium 2.7 mmol/L (3.5-5.1)
[2020-12-08] VITALS (13 sets, daily range): BP systolic 120–170; BP diastolic 71–97; PULSE 75–112; RESP 16–24; TEMP 36.7–37.2; O2SAT 86–98; BMI 43.7
--- NOTE | 2020-12-08 00:17 | W.ED.GENADLT ---
HPI - General Adult General: Chief complaint: Shortness of Breath/Dyspnea Stated complaint: SOB Time Seen by Provider: 12/07/20 20:57 History of Present Illness: HPI narrative: 30-year-old female history of anxiety, IVDU who presents the emergency room with complaints of dyspnea. Patient was brought in by EMS. In route, patient had an O2 sat of 85% on room air. In the emergency room patient had similar chest improved with 3 L of oxygen to greater than 95%. Patient has coarse of breath sounds bilaterally. She has been tested negative for Covid in the past. No complaints at this time. Onset: 2 days ago Duration:2 days Location:home Severity:moderate Review of Systems Narrative: Constitutional: No fever, no chills. HEENT: No vision changes CV: No chest pain, no palpitations PULM: +cough, +dyspnea. GI: No abdominal pain, no N/V/D. : No dysuria MSKEL: No muscle pain SKIN: No new rashes, no lesions. NEURO: No headache, no focal weakness. HEME: No visible bruises PSYCH: Normal mood PFSH ED PFSH: Medical History Alcohol abuse with alcohol-induced mood disorder Breast lump COPD (chronic obstructive pulmonary disease) Essential (primary) hypertension not on any chronic treatment 09/26 Family history of alpha 1 antitrypsin deficiency Fibromyalgia Generalized anxiety disorder H/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, includes meth, heroin, others, on buprenorphine Hepatitis C antibody positive in blood Hx of abscess of skin and subcutaneous tissue right arm Major depressive disorder, recurrent, moderate Nontoxic thyroid nodule Opioid abuse Polycystic ovarian syndrome polycystic ovaries not notated on CT abdomen/pelvis 01/26 Posttraumatic stress disorder Thrombocytopenia Tobacco dependency Unspecified asthma, uncomplicated onset in childhood Surgical History Hx of cholecystectomy Family History Other Vrwjn-0-czbcbqpeixo deficiency Drug abuse, amphetamine type Hypertension Social History Smoking and tobacco status: current every day smoker cigarettes Packs smoked per day: 1.5 Years cigarettes smoked: 15 Quit status (tobacco): considering quitting Second hand smoke exposure: Yes Alcohol intake: current Alcohol intake frequency: 3 or more drinks per day Alcohol type: hard liquor Other details last substance use: Has used methamphetamine, heroin, pain medications. Adopted: No Caregiver/support person: No Lives independently: Yes Household members: friend(s) Housing: Manufactured/Mobile home Marital status: Single Number of children: 2 service: No Current occupational status: unemployed History of recent travel: No Current gender identity: Female Female Reproductive History: Date of last menstrual period: 12/06/20 Para: 2 Physical Exam Narrative: EXAM NARRATIVE: Head: Atraumatic Eyes: PERRL, conjunctiva without injection ENT: Mucous membrane moist NECK: Supple, ROM intact LUNGS: Coarse breath sounds b/l CV: Sinus tachycardia ABDOMEN: Soft, nontender in all quadrants EXTREMITY: Normal ROM SKIN: No rash or erythema NEURO: Awake and alert, no focal motor deficits PSYCH: Normal mood and affect Course Vital Signs: Vital signs: Vital Signs Temperature 98.5 F 12/08/20 01:37 Pulse Rate 112 H 12/08/20 01:37 Respiratory Rate 24 H 12/08/20 01:37 Blood Pressure 120/71 12/08/20 01:37 Pulse Oximetry 86 L 12/08/20 01:37 MDM - General Adult MDM Narrative: Medical decision making narrative: 30-year-old female presents emergency room for dyspnea and hypoxemia. On exam, patient received satting 85% on room air that improved to 95% on 3 L nasal cannula. Lung sounds appear to be coarse bilaterally. Patient has no increased work of breathing. X-ray not show any signs any focal findings. CTA chest did not show any signs of PE. Covid negative today. Patient has a white count 11 point 8K, potassium 2.7, calcium of 4.2. Patient will be mated to hospital for replenishment of these electrolyte abnormality, serial observation and covid PCR. Anxiety treated with geodon per request of patient. S/p calcium gluconate and K supplementation. S/p IVF and abx for concern of possible sepsis w/ elevated WBC and tachypnea given hx of IVDU. Disposition: Admission Lab Data: Labs: Lab Results 12/07/20 12/07/20 12/07/20 22:10 22:10 22:30 WBC 11.8 10^3/uL H 10 ^3/uL (4.0-10.0) RBC 3.84 10^6/uL L 10 ^6/uL (4.1-5.3) Hgb 12.4 g/dL g/dL (11.5-15.3) Hct 38.7 % % (37.0-47.0) MCV 100.8 fl H fl (81-99) MCH 32.3 pg pg (28.0-34.0) MCHC 32.0 g/dL g/dL (30.0-36.0) RDW 12.7 % % (12.1-15.1) Plt Count 208 10^3/cmm 10^3 /cmm (130-400) MPV 9.7 fL fL (7.4-10.4) Neut % (Auto) 83.9 % % Lymph % (Auto) 11.3 % % [place] % (Auto) 4.2 % % Eos % (Auto) 0.1 % % Baso % (Auto) 0.2 % % Neut # (Auto) 9.93 10^3/uL H 10 ^3/uL (1.8-7.7) Lymph # (Auto) 1.3 10^3/uL 10^3/ uL (0.8-4.8) [place] # (Auto) 0.5 10^3/uL 10^3/ uL (0.2-0.9) Eos # (Auto) 0.0 10^3/uL 10^3/ uL (0.0-0.8) Baso # (Auto) 0.0 10^3/uL 10^3/ uL (0.0-0.1) Nucleated RBC % (a uto) 0 % % Nucleated RBCs # 0.0 /100WBC /100W BC Sodium 144 mmol/L mmol/L (136-145) Potassium 2.7 mmol/L L* mmo l/L (3.5-5.1) Chloride 118 mmol/L H mmol /L (98-107) Carbon Dioxide 12 mmol/L L mmol/ L (22-29) Anion Gap 16.7 (5-19) BUN 7 mg/dL mg/dL (6-20) Creatinine 0.3 mg/dL L mg/dL (0.5-0.9) GFR Calculation 259.5 mL/min H mL /min (90-130) Glucose 59 mg/dL L mg/dL (65-115) Calculated Osmolal ity 294 mOsm/kg mOsm/ kg (285-295) Lactate 2.9 mmol/L H mmol /L (0.5-2.2) Calcium 4.5 mg/dL L* mg/d L (8.5-10.5) SARS-CoV-2 Ag (Rap id) 12/07/20 22:45 WBC RBC Hgb Hct MCV MCH MCHC RDW Plt Count MPV Neut % (Auto) Lymph % (Auto) [place] % (Auto) Eos % (Auto) Baso % (Auto) Neut # (Auto) Lymph # (Auto) [place] # (Auto) Eos # (Auto) Baso # (Auto) Nucleated RBC % (a uto) Nucleated RBCs # Sodium Potassium Chloride Carbon Dioxide Anion Gap BUN Creatinine GFR Calculation Glucose Calculated Osmolal ity Lactate Calcium SARS-CoV-2 Ag (Rap id) Negative (Negative) Imaging Data^: Other Imaging: Radiologist's impression: [address] [id number] Scan ReportSigned Patient: Wendy Foss #: [id number]: 1990Acct#:[id number]/Sex: FADM Date: 12/07/20Loc: [facility]oom/Bed:Attending Dr: Ordering Provider/Ordering MD: Hafsa Mauricio MD Date of Service: 12/07/20 Procedure(s): CT angio chest PE prot [id number] Accession Number(s): [id number] Report Number: [id number] PROCEDURE INFORMATION: Exam: CTA Chest With Contrast Exam date and time: 12/07/2020 10:34 PM Age: 30 years old Clinical indication: Shortness of breath; Additional info: Rule out pe TECHNIQUE: Imaging protocol: Computed tomographic angiography of the chest with contrast. 3D rendering (Not supervised by radiologist): MIP and/or 3D reconstructed images were created by the technologist. Radiation optimization: All CT scans at this facility use at least one of these dose optimization techniques: automated exposure control; mA and/or kV adjustment per patient size (includes targeted exams where dose is matched to clinical indication); or iterative reconstruction. Contrast material: OMNI 350; Contrast volume: 65 ml; Contrast route: INTRAVENOUS (IV); COMPARISON: CTA Chest-Pulmonary Emb [id number] 10/08/2018 12:17 PM RADIATION DOSE METRICS: Total DLP (mGy-cm): 1809.38 FINDINGS: Pulmonary arteries: Normal. No pulmonary emboli. Aorta: Unremarkable. No aortic aneurysm. No aortic dissection. Lungs: Unremarkable. No consolidation. No masses. Pleural spaces: Unremarkable. No pneumothorax. No pleural effusion. Heart: Unremarkable. No cardiomegaly. No pericardial effusion. Lymph nodes: Unremarkable. No enlarged lymph nodes. Liver: Hepatic steatosis. Gallbladder and bile ducts: Cholecystectomy. Bones/joints: Unremarkable. No acute fracture. Soft tissues: Unremarkable. CT/CT angio chest PE protcl [id number] IMPRESSION: 1. Negative for pulmonary embolus or airspace infiltrate. 2. Hepatic steatosis. 3. Cholecystectomy. Radiation Dose CTDIVOL = (mGy): DLP = 1809.38 (mGy-cm) Dictated By:Felipe Renee MDSigned By:Felipe Renee MDSigned Date/Time:12/07/20 2322DD/ [address] [id number] ReportSigned Patient: Wendy Foss #: [id number]: 1990Acct#:[id number]/Sex: 30 / FADM Date: 12/07/20Loc: [facility]/Bed:Attending Dr: Ordering Provider/Ordering MD: Hafsa Mauricio MD Date of Service: 12/07/20 Procedure(s): XR chest 1V portable [id number] Accession Number(s): [id number] Report Number: [id number] PROCEDURE INFORMATION: Exam: XR Chest Exam date and time: 12/07/2020 8:57 PM Age: 30 years old Clinical indication: Shortness of breath; Additional info: Dyspnea TECHNIQUE: Imaging protocol: XR of the chest. Views: 1 view. COMPARISON: CR (CHEST, ) 08/20/2020 10:13 PM FINDINGS: Lungs: Unremarkable. No consolidation. Pleural spaces: Unremarkable. No pleural effusion. No pneumothorax. Heart/Mediastinum: Unremarkable. No cardiomegaly. Bones/joints: Unremarkable. XR/XR chest 1V portable [id number] IMPRESSION: No acute findings. Dictated By:Kvng Pearson DOSigned By:Kvng Pearson DOSigned Date/Time:12/07/202225DD/ 24 Discharge Plan Discharge Patient Disposition: Admitted As Inpatient Admit Provider: Leni Mendez Clinical Impression: Hypokalemia, Hypocalcemia, Sepsis Condition: Stable Coding Level of Care Code ED Cook Boat for Bartolo Lund
[2020-12-08] MEDS: sodium chloride 0.9% 1,000 ML 999 ML IV ×3 (02:04→03:53)
[2020-12-08] MEDS: cefepime 1,000 MG in sodium chloride 0.9% (plus) 50 ML 100 MG IV (02:04)
[2020-12-08] MEDS: vancomycin 1,000 MG in sodium chloride 0.9% 250 ML 250 MG IV (02:19)
--- NOTE | 2020-12-08 02:20 | PC.NURSE ---
pt refusing to allow staff to provide care. Pt refused sheet metal erector to draw labs, and for meds to be adm
--- NOTE | 2020-12-08 02:23 | P.HP_ITS ---
Providers/Chief Complaint Admitting Physician: Leni Mendez Chief Complaint: SOB History of Present Illness 30-year-old female with a past medical history is for alcoholism, chronic obstructive pulmonary disease, hypertension, fibromyalgia, generalized anxiety disorder, opiate abuse, pollicis ovarian syndrome and COPD who presents to the hospital with shortness or breath. Patient at the time of my evaluation was not able to provide any history she was quite drowsy after receiving Geodon. Patient was very agitated on arrival and this was administered in ER. Apparently she was noted to have O2 sats in mid to high 80s which improved to 95% on supplemental oxygen. Laboratory workup on arrival showed WBC of 11.8, hemoglobin of 12.4, hematocrit of 38.7 and platelet count of 208. Sodium 144, potassium 2.7, chloride 118, bicarb 12, BUN 7 and creatinine of 0.3. Glucose of 59 lactic acid of 2.9. Calcium of 4.5. COVID-19 negative. Imaging studies included a CTA of chest which did not show any evidence of pulmonary embolism. Chest x-ray did not show any evidence of acute abnormality.In Er patient was given vancomycin , cefepime, potassium replacement, calcium gluconate lorazepam. Review of Systems General: Reports: ROS unobtainable due to medical condition Medications/Allergies Home Medications Medication Instructions Recorded Confirmed Last Taken Type epinephrine [EpiPen 2-Gerardo] 0.3 mg IM Q10M PRN 30 Days #2 each 01/26/20 11/14/20 Unknown Rx multivitamin with folic acid 1 tab PO DAILY 30 Days #30 tab 05/10/20 11/14/20 Unknown Rx [Thera] nebulizer accessories #1 each 05/10/20 11/14/20 Unknown Rx nicotine 1 patch TRANSDERMAL DAILY 28 Days 05/10/20 11/14/20 Unknown Rx #28 ea thiamine mononitrate (vit B1) 100 mg PO DAILY 30 Days #30 tab 05/10/20 11/14/20 Unknown Rx [Vitamin B-1 (mononitrate)] ondansetron HCl 4 mg tablet 4 mg PO Q12H PRN #14 tab 07/26/20 11/14/20 Unknown Rx albuterol sulfate 90 mcg/actuation 2 puff INHALATION QID PRN 30 Days 08/01/20 11/14/20 08/14/20 Rx aerosol inhaler #6.7 g fluticasone 250 mcg-salmeterol 50 1 inh INHALATION BID #60 ea 08/01/20 11/14/20 Unknown Rx mcg/dose blistr powdr for inhalation folic acid 1 mg tablet 1 mg PO DAILY 30 Days #30 tab 08/01/20 11/14/20 Unknown Rx lisinopril 10 1 tab PO DAILY #30 tab 08/01/20 11/14/20 Unknown Rx mg-hydrochlorothiazide 12.5 mg tablet metformin 500 mg tablet,extended 1,000 mg PO DAILY 30 Days #60 tab 08/01/20 11/14/20 Unknown Rx release 24hr naltrexone 50 mg tablet 50 mg PO DAILY #30 tab 08/01/20 11/14/20 Unknown Rx prazosin 1 mg capsule 1 mg PO BEDTIME 30 Days #30 cap 08/01/20 11/14/20 Unknown Rx trazodone 100 mg tablet 100 mg PO BEDTIME 30 Days #30 tab 08/01/20 11/14/20 Unknown Rx venlafaxine 75 mg capsule,extended 75 mg PO QAM #30 cap 08/01/20 11/14/20 Unknown Rx release 24 hr potassium chloride 10 mEq 10 meq PO DAILY #30 cap 08/07/20 11/14/20 Unknown Rx capsule,extended release dicyclomine 20 mg PO QID #20 tab 08/10/20 11/14/20 Unknown Rx famotidine [Pepcid] 20 mg PO BID #60 tab 08/10/20 11/14/20 Unknown Rx Carafate 1 g PO BID 08/21/20 11/14/20 Unknown History fluconazole 150 mg tablet 150 mg PO Q3D #2 tab 11/14/20 11/14/20 Unknown Rx permethrin 5 % topical cream 1 applic TOPICAL Q14D #60 g 11/14/20 11/14/20 Unknown Rx prednisone 20 mg tablet 20 mg PO BID #6 tab 11/14/20 11/14/20 Unknown Rx Allergies Allergy/AdvReac Type Severity Reaction Status Date / Time codeine Allergy Unknown ALGY-Hives Verified 11/14/20 13:30 hydroxyzine [From Vistaril] Allergy ADR-Itching Verified 11/14/20 13:30 PFSH Acute PFSH: Medical History Alcohol abuse with alcohol-induced mood disorder Breast lump COPD (chronic obstructive pulmonary disease) Essential (primary) hypertension not on any chronic treatment 09/26 Family history of alpha 1 antitrypsin deficiency Fibromyalgia Generalized anxiety disorder H/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, includes meth, heroin, others, on buprenorphine Hepatitis C antibody positive in blood Hx of abscess of skin and subcutaneous tissue right arm Major depressive disorder, recurrent, moderate Nontoxic thyroid nodule Opioid abuse Polycystic ovarian syndrome polycystic ovaries not notated on CT abdomen/pelvis 01/26 Posttraumatic stress disorder Thrombocytopenia Tobacco dependency Unspecified asthma, uncomplicated onset in childhood Surgical History Hx of cholecystectomy Family History Other Hfelz-3-djwwmdcgtap deficiency Drug abuse, amphetamine type Hypertension Social History Smoking and tobacco status: current every day smoker cigarettes Packs smoked per day: 1.5 Years cigarettes smoked: 15 Quit status (tobacco): considering quitting Second hand smoke exposure: Yes Alcohol intake: current Alcohol intake frequency: 3 or more drinks per day Alcohol type: hard liquor Other details last substance use: Has used methamphetamine, heroin, pain medications. Adopted: No Caregiver/support person: No Lives independently: Yes Household members: friend(s) Housing: Manufactured/Mobile home Marital status: Single Number of children: 2 service: No Current occupational status: unemployed History of recent travel: No Current gender identity: Female Female Reproductive History: Date of last menstrual period: 12/06/20 Para: 2 Vitals/I&O/Wt Last Vital Signs Temp 98.5 F 12/08/20 01:37 Pulse 112 H 12/08/20 01:37 Resp 24 H 12/08/20 01:37 BP 120/71 12/08/20 01:37 Pulse Ox 86 L 12/08/20 01:37 Weight last 48 hrs Weight 115.575 kg Weight 104.326 kg Physical Exam Narrative: EXAM NARRATIVE: General- very drowsy HEENT-grossly unremarkable CVS- normal sinus rhythm Chest- audible wheezing diffusely Abdomen-nondistended Extremities- no edema Data : 12/08/20 04:35 12/08/20 04:35 Micro: Microbiology 12/07/20 22:10 Blood Culture - Preliminary Blood SPECIMEN COLLECTED 12/07/20 22:10 Blood Culture - Preliminary Blood SPECIMEN COLLECTED A&P Assessment and plan (1) COPD exacerbation: Status: Acute Additional A&P Information Acute respiratory failure due to COPD exacerbation Duoneb q6hr ABG ? normal Chest CTA and CXR- no PE Supplemental o2 as needed Hypokalemia K ? 2.7 Replace BMP in am Hypocalcemia Calcium gluconate 2g IV x1 Repeat in am TSH in am Acute encephalopathy Drug abuse ? hypoxia s/p Geodon Consider psych eval DVT prophylaxis SCDs Heparin Attestations Medical Necessity Statement*: Require over 2 midnight stay in hospital Time Spent in Patient Care: Greater than 35 minutes (>than 50% of time spent in counselling and/or direct pt care on unit) . Coding Level of Care Code Acute Repair Mechanic for Bartolo Lund Diagnoses COPD exacerbation J44.1
[2020-12-08 02:36] LABS: Glucose Point of Care 177 mg/dL (70-110)
[2020-12-08] MEDS: enoxaparin 40 mg/0.4 mL Syringe SUBCUT ×2 (02:58→23:34)
[2020-12-08] MEDS: lidocaine 1% 5 ML in potassium chloride premix 100 ML 25 ML IV (03:08)
[2020-12-08 04:42] LABS: Basophils % 0.3 %; Eosinophils # 0.1 10^3/uL (0.0-0.8); Hematocrit 38.8 % (37.0-47.0); Hemoglobin 12.3 g/dL (11.5-15.3); Lymphocytes # 1.5 10^3/uL (0.8-4.8); Lymphocytes % 25.8 %; Mean Corpuscular HGB Conc 31.7 g/dL (30.0-36.0); Mean Platelet Volume 9.4 fL (7.4-10.4); Monocytes # 0.5 10^3/uL (0.2-0.9); Monocytes % 7.6 %; Neutrophils % 64.1 %; Nucleated Red Blood Cells % 0 %; Platelet Count 168 10^3/cmm (130-400); Red Blood Count 3.84 10^6/uL (4.1-5.3); Red Cell Distribution Width 12.8 % (12.1-15.1); White Blood Count 5.9 10^3/uL (4.0-10.0)
[2020-12-08 05:03] LABS: Alanine Aminotransferase 52 U/L (0-33); Albumin Level 3.2 g/dL (3.5-5.2); Alkaline Phosphatase 71 IU/L (35-105); Anion Gap 14.2 (5-19); Aspartate Amino Transferase 71 U/L (0-32); Blood Urea Nitrogen 9 mg/dL (6-20); Carbon Dioxide 24 mmol/L (22-29); Chloride 106 mmol/L (98-107); Globulin 3.4 g/dL (1.3-4.6); Glomerular Filtration Rate 116.6 mL/min (90-130); Glucose 140 mg/dL (65-115); Osmolality Calculated 291 mOsm/kg (285-295); Potassium 4.2 mmol/L (3.5-5.1); Sodium 140 mmol/L (136-145); Total Bilirubin 0.3 mg/dL (0.15-1.2); Total Protein 6.6 g/dL (6.6-8.7)
[2020-12-08] MEDS: ipratropium-albuterol 3 mL Neb INHALATION ×3 (05:15→19:45)
[2020-12-08 05:27] LABS: ABG PCO2 44.4 mmHg (35-45); ABG PH Result 7.35 (7.35-7.45); Alveolar-Arterial Oxygen Gradi 10.1 mmHg (5-10); Arterial Blood Gas Hematocrit 38.2 % (37-47); Base Excess ABG -1.4 mmol/L (-2.0-2.0); Blood Gas Allen Test Pos; Blood Gas LPM 2.5 %; Blood Gas Sample Site Radial, left; Blood Gas Sample Type Arterial; HCO3 ABG 24.4 mmol/L (22-26); HGB O2 Sat 93.8 % (95-100); Ionized Calcium Level - ABG 1.1 mmol/L (1.1-1.4); Methemoglobin 0.8 % (0.4-1.5); Oxygen Device NC; Oxygen Saturation ABG 96.5; PO2 ABG 81.5 mmHg (80.0-100.0); Potassium Level - ABG 4.1 mmol/L (3.5-5.0); Total Hemoglobin 12.5 g/dL (12-16)
[2020-12-08] MEDS: sodium chloride 0.9% 1,000 ML 75 ML IV ×2 (09:01→20:07)
[2020-12-08] MEDS: doxycycline 100 MG in sodium chloride 0.9% (plus) 100 ML IV ×2 (09:01→19:52)
--- NOTE | 2020-12-08 10:54 | PC.PHAR ---
PT UNABLE TO VERIFY MEDICATIONS-MEDICATIONS ENTERED ARE FROM WHAT [email or web address] STATES HAS BEEN PICKED UP RECENTLY AND WHAT HAS BEEN FILLED RECENTLY ON EXT MED HISTORY-NOTES ARE MADE IN THE PHARMACY COMMENTS
--- NOTE | 2020-12-08 15:33 | PC.CHAP ---
Pastoral Care Encounter/Spiritual Assessment Type of Contact [] Declined service center specialist visit [] Patient/Family/Request visit [] Outpatient visit [] Follow-up visit [] Physician referral [] Code/Alert [] Routine visit [] Staff referral [] Actively dying [] Patient sleeping [] Family support [] [] Out of room [] Palliative care [] [] Receiving care in room [] Pre-surgical visit [] Trauma [] Long length of stay [] ICU visit [XX] Other: ISOLATION Relational/Emotional Strength [] Patient feels connected with others/family/visitors/staff [] Distress [] Loneliness/isolation [] Abandonment Spirituality of Patient [] Person of Elsa [] Attends Protestant of their Elsa [] Believes in Prayer [] Reads Bible or Jain materials [] There are Spiritual issues to be addressed Harness Puller Interventions [] Prayer [] Active listening [] Non-anxious presence [] Spiritual/emotional support [] Crisis/trauma care [] Spiritual counseling [] Bereavement support [] Provided bereavement packet [] Provided Bible/devotional materials [] Provided toy/stuffed animal, coloring book to patient or family member [] Provided Communion [] Anointing/Novi [] Salvation [] Completed spiritual assessment [] Other: Impact on Illness or Injury [] Angry [] Fearful [] Anxious [] Often cries [] Exhaustion [] Unable to work [] Unable to attend mormonism [] Unable to walk/stand [] Unable to read [] Unable to drive [] Unable to eat/drink [] Unable to sleep [] Unable to be with family [] Patient intubated [] Other: Summary Time spent with patient
[2020-12-08 15:43] LABS: Coronavirus Test Green County Not Detected
--- NOTE | 2020-12-08 18:28 | P.PN_ITS ---
Subjective Subjective: Interval history: She is doing a bit better, but still short of breath, still coughing, coughing up green/yellow phlegm, wheezing. Also having itching of hands and feet which has been going on for about a month with mild spots of erythema which is difficult to tell if it is from scratching as she is continue scratching them even during my visit, or if there are actually small hives. Denies any known allergies to food. Denies changing to a new detergent or hygiene products. Vitals/I&O/Wt Last Vital Signs Temp 98.5 F 12/08/20 15:32 Pulse 85 12/08/20 15:53 Resp 18 12/08/20 15:53 BP 155/87 12/08/20 15:32 Pulse Ox 95 12/08/20 15:53 12/08/20 12/08/20 12/08/20 06:59 14:59 22:59 Intake Total 3370 / 3370 205 / 205 Balance 3370 / 3370 205 / 205 Weight last 48 hrs Weight 115.575 kg Weight 104.326 kg Physical Exam Const: COMMON NORMALS: no acute distress, patient oriented x3 and alert GENERAL APPEARANCE: disheveled NUTRITIONAL APPEARANCE: obese ORIENTATION/CONSCIOUSNESS: Yes awake HENMT: COMMON NORMALS: oropharynx normal Neck/C-Spine: COMMON NORMALS: no JVD Resp: COMMON NORMALS: normal respiratory effort AUSCULTATION: rhonchi, wheezes and diminished lung sounds Cardio: COMMON NORMALS: no JVD, regular rhythm, S1 normal heart sound present, S2 normal heart sound present and No murmurs present (Cardio) RHYTHM: regular rhythm HEART SOUNDS: S1 normal heart sound present and S2 normal heart sound present GI: COMMON NORMALS: Normal to inspection, nondistended, normoactive bowel sounds present, Soft to palpation and non-tender PALPATION: Yes Soft to palpation Extremity: COMMON NORMALS: no joint enlargement and no pedal edema Neuro: COMMON NORMALS: patient oriented x3 and moves all extremities SENSORIUM/ORIENTATION: Yes alert Skin: COMMON NORMALS: no rashes or lesions noted GENERAL SKIN EXAM: no rashes or lesions noted OTHER: Multiple excoriations on hands and feet Data : 12/08/20 04:35 12/08/20 04:35 Micro: Microbiology 12/07/20 22:10 Blood Culture - Preliminary Blood Gram positive cocci 12/07/20 22:10 Blood Culture - Preliminary Blood SPECIMEN COLLECTED A&P Assessment and plan (1) COPD exacerbation: Acute bronchitis, coughing up green/yellow phlegm. Continues to require 2 L of oxygen by nasal cannula. Continues to have wheezing. Continue antibiotic, steroid. Breathing treatments. Collect sputum cultures. Status: Acute (2) Positive blood culture: Gram-positive cocci 1/3 bottles. Possibly contaminant. Follow-up. Status: Acute Additional A&P Information Appears she also has had recent scabies from what I can see from her prescriptions. Maintain contact isolation. Will confirm if she has completed her courses of permethrin. Hypokalemia: Replaced Hypocalcemia: Replaced. Acute encephalopathy: She is awake, alert, with insight into her condition with COPD/asthma exacerbation. States she has history of panic attacks. Was [facility] after receiving Geodon in ER. Currently request for something for panic attacks. Reassured her, we will monitor closely, in case of symptoms will give medication. Follow-up with [facility]. Attestations Medical Necessity Statement*: Continue admission for COPD/asthma exacerbation, hypoxia. Follow-up on positive blood culture. Coding Level of Care Code Acute Master Sheet Clerk for Bartolo Lund Diagnoses COPD exacerbation J44.1 Positive blood culture R78.81
[2020-12-08 19:43] LABS: Thyroid Stimulating Hormone 0.55 uIU/mL (0.27-4.20)
[2020-12-08] MEDS: trazodone 100 mg Tablet PO (19:52)
[2020-12-08] MEDS: buprenorphine-naloxone 4-1 mg Film 2 EACH SUBLINGUAL (19:53)
[2020-12-08] MEDS: LORazepam 2 mg/mL INJ 1 mL 0.5 MG IVP (23:39)
[2020-12-09] VITALS (8 sets, daily range): BP systolic 127–170; BP diastolic 76–99; PULSE 79–109; RESP 16–20; TEMP 36.6–36.9; O2SAT 93–97
[2020-12-09] MEDS: ipratropium-albuterol 3 mL Neb INHALATION ×3 (02:20→15:24)
[2020-12-09] MEDS: LORazepam 2 mg/mL INJ 1 mL 0.5 MG IVP (03:54)
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
[2020-12-09 05:46] LABS: Hematocrit 35.6 % (37.0-47.0); Hemoglobin 11.7 g/dL (11.5-15.3); Lymphocytes # 0.4 10^3/uL (0.8-4.8); Lymphocytes % 10.2 %; Mean Corpuscular HGB Conc 32.9 g/dL (30.0-36.0); Mean Corpuscular Hemoglobin 32.9 pg (28.0-34.0); Mean Platelet Volume 9.9 fL (7.4-10.4); Monocytes # 0.2 10^3/uL (0.2-0.9); Monocytes % 4.2 %; Neutrophils # 3.42 10^3/uL (1.8-7.7); Neutrophils % 85.4 %; Nucleated Red Blood Cells % 0 %; Platelet Count 153 10^3/cmm (130-400); Red Blood Count 3.56 10^6/uL (4.1-5.3); Red Cell Distribution Width 12.9 % (12.1-15.1)
[2020-12-09 06:13] LABS: Procalcitonin 0.11 ng/mL (0-0.5)
[2020-12-09 06:20] LABS: Alanine Aminotransferase 38 U/L (0-33); Albumin Level 3.4 g/dL (3.5-5.2); Alkaline Phosphatase 66 IU/L (35-105); Anion Gap 12.3 (5-19); Aspartate Amino Transferase 30 U/L (0-32); Blood Urea Nitrogen 7 mg/dL (6-20); Calcium 8.7 mg/dL (8.5-10.5); Carbon Dioxide 29 mmol/L (22-29); Chloride 103 mmol/L (98-107); Globulin 3.2 g/dL (1.3-4.6); Glomerular Filtration Rate 143.9 mL/min (90-130); Glucose 206 mg/dL (65-115); Magnesium 1.6 mg/dL (1.7-2.3); Osmolality Calculated 294 mOsm/kg (285-295); Potassium 4.3 mmol/L (3.5-5.1); Sodium 140 mmol/L (136-145); Total Bilirubin 0.3 mg/dL (0.15-1.2); Total Protein 6.6 g/dL (6.6-8.7)
[2020-12-09] MEDS: doxycycline 100 MG in sodium chloride 0.9% (plus) 100 ML IV (08:37)
[2020-12-09] MEDS: sodium chloride 0.9% 1,000 ML 75 ML IV (08:39)
[2020-12-09] MEDS: multivitamin therapeutic Tablet 1 TAB PO (08:40)
[2020-12-09] MEDS: folic acid 1 mg Tablet PO (08:41)
[2020-12-09] MEDS: buprenorphine-naloxone 4-1 mg Film 2 EACH SUBLINGUAL ×2 (08:41→13:58)
[2020-12-09] MEDS: magnesium sulfate premix 2 GM/50 ML PIGGYBACK IV (11:16)
[2020-12-09] MEDS: LORazepam 2 mg/mL INJ 1 mL IM (13:57)
--- NOTE | 2020-12-09 15:43 | PC.NURSE ---
AMA Patient stated that she needed to go home today, because she was going to be kicked out of her home and lose her belongings. Dr. Hooper came to bedside to explain the health risks involving leaving against medical advise, including . Patient verbalized understanding of these risk and signed AMA form. She states she can call for her own medicaid ride, phone number was provided. She did not wish to wait in the room for her ride, stated she wanted to go outside to have a cigarette. IV was removed without complication. Patient refused to be escorted outside via wheelchair.
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
--- NOTE | 2020-12-12 10:54 | PC.SOCIAL ---
discharge follow up call made, spoke with patient. patient reports i feel horrible, i never should have left the hospital, my chest hurts, i shortness of breath nurse called to see if pcp could see patient today and they weren't able due to being fully booked. discussed with patient if she was feeling that bad she would need to go to the ED. patient states i don't want to have to go through the ED again, can't you just admit me discussed with patient that she would have to be re evaluate in the ED. patient verbalized understanding.
== END 2020-12-09 15:25 | disposition home or self-care (01) | DRG 190 ==
LOC: ER 21:26 → MEDSURG 12-08 00:41
PROVIDERS: Admitting Provider Hospitalist; Emergency Provider Emergency Medicine; Visit Provider Internal Medicine
DX: J44.1 Chronic obstructive pulmonary disease with (acute) exacerbation (principal); J96.01 Acute respiratory failure with hypoxia; R78.81 Bacteremia; F10.280 Alcohol dependence with alcohol-induced anxiety disorder; F11.288 Opioid dependence with other opioid-induced disorder; F10.239 Alcohol dependence with withdrawal, unspecified; G93.40 Encephalopathy, unspecified; B95.8 Unspecified staphylococcus as the cause of diseases classified elsewhere; E87.6 Hypokalemia; E83.51 Hypocalcemia; E83.42 Hypomagnesemia; F41.1 Generalized anxiety disorder; F43.10 Post-traumatic stress disorder, unspecified; B86 Scabies; F41.0 Panic disorder [episodic paroxysmal anxiety]; I10 Essential (primary) hypertension; M79.7 Fibromyalgia; E28.2 Polycystic ovarian syndrome; F17.210 Nicotine dependence, cigarettes, uncomplicated; Z53.29 Procedure and treatment not carried out because of patient's decision for other reasons
CPT/HCPCS: 36416; 36600; 71045; 71275; 80048; 80051; 80053; 82330; 82805; 82962; 83605; 83735; 84145; 84443; 85025; 87040; 87205; 87426; 87635; 94640; 94664; 96365; 96367; 96372; 99285; J0573; J0610; J0692; J1650; J2060; J2920; J3370; J3411; J3475; J3480; J3490; J7030; J7050; Q9967

== ENCOUNTER → 2020-12-14 14:30 | Outpatient (BNVA) | payer MEDICAID, SELFPAY | PROVIDERS: Visit Provider Nurse Practitioner | DX: Z72.53 High risk bisexual behavior (principal); Z72.51 High risk heterosexual behavior | CPT/HCPCS: 81003; 81025 ==

== ENCOUNTER 2020-12-24 01:18 | Emergency (ER) | payer MEDICAID, SELFPAY ==
[2020-12-24 01:19] VITALS: BP 164/96; PULSE 105; RESP 20; TEMP 36.2; O2SAT 95; BMI 47.2
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
[2020-12-24 01:54] LABS: HCG Qualitative Urine. Negative (Negative)
[2020-12-24 02:12] LABS: Amphetamines Screen Urine Negative (Negative); Barbiturates Screen Urine Negative (Negative); Benzodiazepines Screen Urine Negative (Negative); Cocaine Screen Urine Negative (Negative); Opiate Screen Urine Negative (Negative); PCP Screen Urine Negative (Negative); THC Screen Urine Negative (Negative)
[2020-12-24 02:30] VITALS: RESP 18; O2SAT 94
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
[2020-12-24 02:59] LABS: Alanine Aminotransferase 103 U/L (0-33); Alkaline Phosphatase 71 IU/L (35-105); Aspartate Amino Transferase 251 U/L (0-32); Blood Urea Nitrogen 6 mg/dL (6-20); Calcium 8.4 mg/dL (8.5-10.5); Carbon Dioxide 25 mmol/L (22-29); Chloride 106 mmol/L (98-107); Creatinine Clr Calc Pharmacy 152.0548; Globulin 3.8 g/dL (1.3-4.6); Glomerular Filtration Rate 97.6 mL/min (90-130); Glucose 88 mg/dL (65-115); Osmolality Calculated 301 mOsm/kg (285-295); Sodium 147 mmol/L (136-145); Total Bilirubin 0.3 mg/dL (0.15-1.2); Total Protein 7.8 g/dL (6.6-8.7)
[2020-12-24 03:03] LABS: Acetaminophen < 5.0 ug/mL (10-30); Salicylate < 0.3 mg/dL (3-10)
[2020-12-24 03:04] LABS: Anion Gap 19.4 (5-19); Potassium 3.4 mmol/L (3.5-5.1)
[2020-12-24 03:05] LABS: Alcohol Level 436 mg/dL (0-10)
[2020-12-24 03:11] LABS: Basophils % 0.9 %; Eosinophils # 0.2 10^3/uL (0.0-0.8); Eosinophils % 3.9 %; Hematocrit 40.8 % (37.0-47.0); Hemoglobin 13.1 g/dL (11.5-15.3); Lymphocytes # 2.2 10^3/uL (0.8-4.8); Lymphocytes % 48.5 %; Mean Corpuscular HGB Conc 32.1 g/dL (30.0-36.0); Mean Corpuscular Hemoglobin 31.8 pg (28.0-34.0); Mean Platelet Volume 9.8 fL (7.4-10.4); Monocytes # 0.2 10^3/uL (0.2-0.9); Monocytes % 3.9 %; Neutrophils # 1.93 10^3/uL (1.8-7.7); Neutrophils % 42.4 %; Nucleated Red Blood Cells % 0 %; Platelet Count 114 10^3/cmm (130-400); Red Blood Count 4.12 10^6/uL (4.1-5.3); Red Cell Distribution Width 14.1 % (12.1-15.1); White Blood Count 4.6 10^3/uL (4.0-10.0)
[2020-12-24 03:20] VITALS: BP 107/73; PULSE 89; RESP 22; O2SAT 98
[2020-12-24 05:36] VITALS: BP 111/73; PULSE 114; RESP 14; O2SAT 95
--- NOTE | 2020-12-24 05:40 | PC.NURSE ---
Pt. gave me a number to call her family. . Pt states that this is her uncles number and that he can give her a ride home. When I called the number no one answered the phone. Pt. has been cleared by the doctor for discharge home as long as she is sober or has family to take her home. Pt. is resting in bed with no complaints at this time. Pt is still highly intoxicated and is mumbling when she speaks. Pt. is still resistant to care and states that she wants to go home. Pt. has been placed on supplemental oxygen while she is intoxicated and sleeping to make sure that she is getting enough oxygen. Pt is 95% with the oxygen. Pt. continues to curse at staff and is uncooperative.
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
[2020-12-24 06:44] VITALS: PULSE 108; RESP 16; O2SAT 91
--- NOTE | 2020-12-24 06:45 | PC.NURSE ---
Pt. will wake easily, but is still mumbling incoherently. Pt. refuses to wear blood pressure cuff, O2 sensor, and supplemental oxygen. Pt. states that she would like to go home as soon as she can.
[2020-12-24 10:32] VITALS: PULSE 108; RESP 16; O2SAT 91
== END 2020-12-24 10:36 | disposition home or self-care (01) ==
PROVIDERS: Emergency Medicine; Emergency Provider Emergency Medicine
DX: S09.8XXA Other specified injuries of head, initial encounter (principal); F10.920 Alcohol use, unspecified with intoxication, uncomplicated; Z79.84 Long term (current) use of oral hypoglycemic drugs; J44.9 Chronic obstructive pulmonary disease, unspecified; I10 Essential (primary) hypertension; Z86.19 Personal history of other infectious and parasitic diseases; F17.210 Nicotine dependence, cigarettes, uncomplicated; Y90.8 Blood alcohol level of 240 mg/100 ml or more; Y04.8XXA Assault by other bodily force, initial encounter
CPT/HCPCS: 70450; 80053; 80306; 80307; 81025; 85025; 96372; 99284; J3411

== ENCOUNTER 2021-01-15 13:04 | Emergency (ER) | payer MEDICAID, SELFPAY ==
[2021-01-15 13:23] VITALS: BP 163/94; PULSE 111; RESP 20; TEMP 37.1; O2SAT 97; BMI 34.3
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
[2021-01-15 13:46] VITALS: BP 95/74; PULSE 111; RESP 18; TEMP 36.9; O2SAT 93; O2SAT 94
[2021-01-15 14:32] VITALS: BP 117/84; PULSE 105; RESP 18; O2SAT 93
[2021-01-15 14:32] LABS: Glucose Urine UA Norm (Normal); Ketones Urine Negative (Negative); Protein Urine Neg (Negative); Specific Gravity, Urine 1.015 (1.005-1.030); Urine Appearance Clear (CLEAR); Urine Color Dark Yellow (Yellow); pH Urine 6.5 (5-7)
[2021-01-15 14:33] LABS: Bilirubin Urine Neg (Negative); Blood Urine 3+ (Negative); Leukocyte Esterase Urine Negative (Negative); Nitrate Urine Negative (Negative); Urobilinogen Urine 1 mg/dL (Negative)
[2021-01-15 14:34] LABS: Bacteria Urine 1+ /hpf; RBC Urine 25-40 /hpf (0-2); WBC Urine 0-4 /hpf (0-5)
[2021-01-15 14:35] LABS: Add Urine Culture? Yes
[2021-01-15 14:55] LABS: HCG Qualitative Urine. Negative (Negative)
[2021-01-15 15:02] LABS: Amphetamines Screen Urine Negative (Negative); Barbiturates Screen Urine Negative (Negative); Benzodiazepines Screen Urine Negative (Negative); Cocaine Screen Urine Negative (Negative); Opiate Screen Urine Negative (Negative); PCP Screen Urine Negative (Negative); THC Screen Urine Negative (Negative)
[2021-01-15] MEDS: ziprasidone 20 mg/mL SDV IM (15:23)
[2021-01-15 16:54] LABS: Basophils # 0.1 10^3/uL (0.0-0.1); Basophils % 1.1 %; Eosinophils # 0.1 10^3/uL (0.0-0.8); Eosinophils % 1.7 %; Hematocrit 45.7 % (37.0-47.0); Hemoglobin 15.7 g/dL (11.5-15.3); Lymphocytes # 2.1 10^3/uL (0.8-4.8); Lymphocytes % 44.1 %; Mean Corpuscular HGB Conc 34.4 g/dL (30.0-36.0); Mean Corpuscular Hemoglobin 34.6 pg (28.0-34.0); Mean Corpuscular Volume 100.7 fl (81-99); Mean Platelet Volume 10.3 fL (7.4-10.4); Monocytes # 0.2 10^3/uL (0.2-0.9); Monocytes % 4.4 %; Neutrophils # 2.22 10^3/uL (1.8-7.7); Neutrophils % 46.8 %; Nucleated Red Blood Cells % 0 %; Platelet Count 66 10^3/cmm (130-400); Red Blood Count 4.54 10^6/uL (4.1-5.3); Red Cell Distribution Width 17.6 % (12.1-15.1); White Blood Count 4.7 10^3/uL (4.0-10.0)
[2021-01-15 17:23] VITALS: BP 145/91; PULSE 122; RESP 18; O2SAT 92
--- NOTE | 2021-01-15 19:57 | PC.NURSE ---
multiple attempts to obtained blood sampls unsuccessful, request for ultrasound IV made to trained RN. While attempting to obtained IV, pt reports to leave AMA. notified, form signed by attending RN
== END 2021-01-15 19:45 ==
PROVIDERS: Emergency Provider Emergency Medicine
DX: F17.210 Nicotine dependence, cigarettes, uncomplicated (principal); R10.819 Abdominal tenderness, unspecified site; F10.129 Alcohol abuse with intoxication, unspecified; Z53.29 Procedure and treatment not carried out because of patient's decision for other reasons
CPT/HCPCS: 74176; 80306; 81001; 81025; 85025; 87086; 96372; 99283; J3486

== ENCOUNTER 2021-04-18 18:04 | Emergency (ER) | payer MEDICAID, SELFPAY ==
[2021-04-18 18:17] VITALS: BP 190/124; PULSE 114; RESP 22; TEMP 37.1; O2SAT 97; BMI 45.8
--- NOTE | 2021-04-18 18:23 | W.ED.ALLEREA ---
HPI - Allergic Reaction General: Chief complaint: Overdose Stated complaint: ALLERGIC REACTION Time Seen by Provider: 04/18/21 18:15 Source: patient Mode of arrival: ambulatory Limitations: no limitations History of Present Illness: HPI narrative: 31-year-old female who is here with EMS for allergic reaction. She states that she taken her Suboxone at home crusted up and injected it intravenously and also snorted methamphetamine. States she started having a rash shortly thereafter and feeling very anxious she does have a rash to her full body she was having shortness of breath she has been given IM Benadryl she is in no respiratory distress here but does have a urticaria to her face and trunk. Denies any worsening improving factors. Associated symptoms: Deny abdominal pain, nausea or vomiting Review of Systems Const: Denies: fever(s), chills, body aches or change in appetite Eyes: Denies: blurry vision or eye discomfort ENMT: Denies: throat pain or dental pain Card: Denies: chest pain Resp: Denies: dyspnea GI: Denies: abdominal pain, nausea, vomiting or diarrhea : Denies: dysuria Musc: Denies: neck pain or back pain Skin/Breast: Reports: rash Neuro: Denies: headache(s) Psych: Denies: depression Dg/Lymph: Denies: easy bruising All/Imm: Denies: urticaria PFSH ED PFSH: Medical History Alcohol abuse with alcohol-induced mood disorder Breast lump COPD (chronic obstructive pulmonary disease) CPAP (continuous positive airway pressure) dependence Essential (primary) hypertension not on any chronic treatment 09/26 Family history of alpha 1 antitrypsin deficiency Fibromyalgia Generalized anxiety disorder H/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, includes meth, heroin, others, on buprenorphine Hepatitis C antibody positive in blood Hx of abscess of skin and subcutaneous tissue right arm Major depressive disorder, recurrent, moderate Nontoxic thyroid nodule Obstructive sleep apnea (adult) (pediatric) Opioid abuse Polycystic ovarian syndrome polycystic ovaries not notated on CT abdomen/pelvis 01/26 Posttraumatic stress disorder Thrombocytopenia Tobacco dependency Unspecified asthma, uncomplicated onset in childhood Surgical History Hx of cholecystectomy Family History Other Lungy-3-dbqhrthfgyq deficiency Drug abuse, amphetamine type Hypertension Social History Smoking and tobacco status: current every day smoker cigarettes Packs smoked per day: 1.5 Years cigarettes smoked: 15 Quit status (tobacco): considering quitting Second hand smoke exposure: Yes Smoking risk assessment/counseling performed?: No Alcohol intake: current Alcohol intake frequency: 3 or more drinks per day Alcohol type: hard liquor Desire information about alcohol rehabilitation?: No Counseling given: No Desire information about substance/drug rehabilitation?: No Counseling given: No Other details last substance use: Has used methamphetamine, heroin, pain medications. Adopted: No Caregiver/support person: No Lives independently: Yes Household members: friend(s) Housing: Manufactured/Mobile home Marital status: Single Number of children: 2 service: No Current occupational status: unemployed History of recent travel: No Current gender identity: Female Female Reproductive History: Date of last menstrual period: 12/06/20 Para: 2 Physical Exam Const: COMMON NORMALS: no acute distress, patient oriented x3 and healthy appearing HENMT: COMMON NORMALS: normocephalic and atraumatic HEAD & SCALP: normocephalic and atraumatic Eye: COMMON NORMALS: Equal, round and reactive pupils present and EOMs intact bilaterally PUPIL: Yes Equal, round and reactive pupils present Neck/C-Spine: COMMON NORMALS: full ROM and supple Chest: COMMONS NORMALS: normal inspection of the chest and normal palpation of entire chest wall Resp: COMMON NORMALS: normal respiratory effort, No retractions, No use of accessory muscles and clear to auscultation bilaterally AUSCULTATION: clear to auscultation bilaterally Cardio: COMMON NORMALS: regular rate, regular rhythm and No murmurs present (Cardio) RATE: regular rate RHYTHM: regular rhythm GI: COMMON NORMALS: Normal to inspection, nondistended, normoactive bowel sounds present, Soft to palpation, non-tender and no masses PALPATION: Yes Soft to palpation Extremity: COMMON NORMALS: normal to inspection and full ROM Neuro: COMMON NORMALS: patient oriented x3, moves all extremities and no focal motor deficits Psych: COMMON NORMALS: mental status grossly normal, Normal thought process present and cooperative THOUGHT PROCESS: Normal thought process present Skin: COMMON NORMALS: no wounds NARRATIVE SKIN EXAM: urticarial rash to face and trunk Course Vital Signs: Vital signs: Vital Signs Temperature 98.7 F 04/18/21 18:17 Pulse Rate 114 H 04/18/21 18:17 Respiratory Rate 22 H 04/18/21 18:17 Blood Pressure 190/124 04/18/21 18:17 Pulse Oximetry 97 04/18/21 18:17 MDM - Allergic Reaction Medical Decision Making Patient presents here with allergic reaction with urticaria. She is much improved here after IV meds we will discharge her with EpiPen did instruct her to stop using methamphetamine and shooting up Suboxone. She has no airway involvement she is stable for discharge return if worsening. Discharge Plan Discharge Patient Disposition: Home Clinical Impression: Allergic reaction, Methamphetamine abuse Condition: Stable Prescriptions: New EpiPen 2-Gerardo 0.3 mg/0.3 mL auto-injector 0.3 mg IM Q20M PRN (Reason: anaphylaxis) Qty: 2 0RF Rx Instructions: for 3 doses No Action folic acid 1 mg tablet 1 mg PO DAILY 30 Days Qty: 30 2RF ondansetron HCl [Zofran] 4 mg tablet 4 mg PO Q12H PRN (Reason: nausea ) Qty: 14 0RF (DME) CPAP See Rx Instructions .ROUTE .MEDSUPPLY Qty: 1 0RF Rx Instructions: As directed metformin 500 mg tablet extended release 24hr 1,000 mg PO DAILY 30 Days Qty: 60 2RF trazodone 100 mg tablet 100 mg PO BEDTIME 30 Days Qty: 30 2RF fluticasone propion-salmeterol [Advair Diskus] 250-50 mcg/dose blister with device 1 inh inhalation BID Qty: 60 2RF doxepin 50 mg capsule 50 mg PO DAILY Qty: 30 0RF potassium chloride 10 mEq capsule, extended release 10 meq PO DAILY Qty: 30 2RF albuterol sulfate [ProAir HFA] 90 mcg/actuation HFA aerosol inhaler 2 puff inhalation QID PRN (Reason: shortness of breath or wheezing) 30 Days Qty: 6.7 2RF (DME) nebulizer accessories Kit See Rx Instructions .ROUTE .MEDSUPPLY Qty: 1 0RF Rx Instructions: As directed multivitamin with folic acid [Thera] 400 mcg Tablet 1 tab PO DAILY 30 Days Qty: 30 1RF venlafaxine 150 mg capsule,extended release 24hr 150 mg PO DAILY 0RF prazosin 2 mg capsule 2 mg PO BEDTIME 0RF buprenorphine-naloxone 8-2 mg tablet, sublingual 1 tab SUBLINGUAL TID 0RF Diflucan 150 mg tablet 150 mg PO Q3D 0RF Rx Instructions: may repeat second dose 72 hrs after first dose if symptoms persist thiamine HCl (vitamin B1) 100 mg tablet 100 mg PO DAILY Qty: 30 0RF folic acid 1 mg tablet 1,000 mcg PO DAILY Qty: 30 0RF prednisone 20 mg tablet 20 mg PO DAILY Qty: 5 0RF permethrin 5 % cream 1 applic topical Q14D Qty: 60 0RF epinephrine [EpiPen 2-Gerardo] 0.3 mg/0.3 mL auto-injector 0.3 mg IM Q10M PRN (Reason: anaphylaxis) 30 Days Qty: 2 1RF Rx Instructions: for 3 doses Discharge Orders: Discharge ED (Routine); Ordered 04/18/21 Ordered By: Niranjan Martinez Discharge Diet: Advance as tolerated Discharge Activity: Resume usual activity Patient Instructions: Urticaria (ED) Coding Level of Care Code ED Handstitching Machine Collar Feller for Jerg Fwd Exam Comprehensive
[2021-04-18] MEDS: diphenhydrAMINE 50 mg/mL SDV 1mL IVP (18:36)
[2021-04-18] MEDS: famotidine 20 mg/2 mL INJ 40 MG IVP (18:47)
[2021-04-18] MEDS: LORazepam 2 mg/mL INJ 1 mL IVP (19:19)
[2021-04-18 19:50] VITALS: PULSE 98; RESP 16; TEMP 36.9; O2SAT 95
[2021-04-18 19:55] VITALS: PULSE 105; RESP 18; O2SAT 98
== END 2021-04-18 19:55 | disposition home or self-care (01) ==
PROVIDERS: Emergency Provider Emergency Medicine
DX: T78.40XA Allergy, unspecified, initial encounter (principal); F15.10 Other stimulant abuse, uncomplicated; Z79.84 Long term (current) use of oral hypoglycemic drugs; J44.9 Chronic obstructive pulmonary disease, unspecified; I10 Essential (primary) hypertension; Z86.19 Personal history of other infectious and parasitic diseases; F17.210 Nicotine dependence, cigarettes, uncomplicated
CPT/HCPCS: 96374; 96375; 99284; J1200; J2060; J2930; J3490

== ENCOUNTER 2021-06-24 12:05 | Emergency (ER) | payer MEDICAID, SELFPAY ==
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
[2021-06-24 12:11] VITALS: BP 149/107; PULSE 92; RESP 16; TEMP 36.6; O2SAT 97; BMI 39.4
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
[2021-06-24] MEDS: acetaminophen 1,000 MG/100 ML PIGGYBACK 400 MG IV (12:42)
[2021-06-24 13:22] LABS: Basophils % 0.7 %; Eosinophils # 0.1 10^3/uL (0.0-0.8); Eosinophils % 1.8 %; Hematocrit 41.7 % (37.0-47.0); Hemoglobin 13.3 g/dL (11.5-15.3); Lymphocytes # 2.4 10^3/uL (0.8-4.8); Lymphocytes % 44.3 %; Mean Corpuscular HGB Conc 31.9 g/dL (30.0-36.0); Mean Corpuscular Hemoglobin 30.8 pg (28.0-34.0); Mean Corpuscular Volume 96.5 fl (81-99); Mean Platelet Volume 9.4 fL (7.4-10.4); Monocytes # 0.3 10^3/uL (0.2-0.9); Monocytes % 5.5 %; Neutrophils # 2.61 10^3/uL (1.8-7.7); Neutrophils % 47.5 %; Nucleated Red Blood Cells % 0 %; Platelet Count 150 10^3/cmm (130-400); Red Blood Count 4.32 10^6/uL (4.1-5.3); Red Cell Distribution Width 17.1 % (12.1-15.1); White Blood Count 5.5 10^3/uL (4.0-10.0)
[2021-06-24] MEDS: LORazepam 2 mg/mL INJ 1 mL 0.5 MG IVP (13:29)
[2021-06-24] MEDS: tetanus-dipt-pertussis 0.5 mL SDV IM (13:30)
[2021-06-24 13:48] LABS: HCG, Serum Qual Negative (Negative)
[2021-06-24 13:56] LABS: Alanine Aminotransferase 95 U/L (0-33); Albumin Level 4.1 g/dL (3.5-5.2); Alkaline Phosphatase 47 IU/L (35-105); Anion Gap 15.6 (5-19); Aspartate Amino Transferase 160 U/L (0-32); Blood Urea Nitrogen 8 mg/dL (6-20); Calcium 7.6 mg/dL (8.5-10.5); Carbon Dioxide 27 mmol/L (22-29); Chloride 108 mmol/L (98-107); Globulin 2.7 g/dL (1.3-4.6); Glucose 81 mg/dL (65-115); Osmolality Calculated 301 mOsm/kg (285-295); Potassium 3.6 mmol/L (3.5-5.1); Sodium 147 mmol/L (136-145); Total Bilirubin 0.2 mg/dL (0.15-1.2); Total Protein 6.8 g/dL (6.6-8.7)
[2021-06-24] MEDS: iohexol 350 mg/mL 100 mL Btl IV (13:56)
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
[2021-06-24] MEDS: morphine 4 mg/mL SDV 1 mL IVP (14:42)
== END 2021-06-24 15:14 | disposition home or self-care (01) ==
PROVIDERS: Emergency Provider Emergency Medicine
DX: T14.8XXA Other injury of unspecified body region, initial encounter (principal); S09.90XA Unspecified injury of head, initial encounter; Y04.2XXA Assault by strike against or bumped into by another person, initial encounter; E11.9 Type 2 diabetes mellitus without complications; E66.9 Obesity, unspecified; Z68.39 Body mass index [BMI] 39.0-39.9, adult; J44.9 Chronic obstructive pulmonary disease, unspecified; F10.10 Alcohol abuse, uncomplicated; F17.210 Nicotine dependence, cigarettes, uncomplicated; Z79.84 Long term (current) use of oral hypoglycemic drugs
CPT/HCPCS: 70450; 70498; 71260; 72125; 73562; 74177; 80053; 84703; 85025; 90471; 90715; 96374; 96375; 99283; J2060; J2270; Q9967

== ENCOUNTER 2021-07-17 03:35 | Emergency (ER) | payer MEDICAID, SELFPAY ==
[2021-07-17 03:36] VITALS: BMI 31.7
[2021-07-17 03:45] VITALS: BP 131/85; PULSE 105; RESP 16; TEMP 36.6; O2SAT 95
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
[2021-07-17 04:38] LABS: Basophils # 0.1 10^3/uL (0.0-0.1); Eosinophils # 0.2 10^3/uL (0.0-0.8); Eosinophils % 2.3 %; Hemoglobin 14.1 g/dL (11.5-15.3); Lymphocytes # 3.8 10^3/uL (0.8-4.8); Lymphocytes % 48.5 %; Mean Corpuscular HGB Conc 33.6 g/dL (30.0-36.0); Mean Corpuscular Hemoglobin 32.6 pg (28.0-34.0); Mean Corpuscular Volume 97.2 fl (81-99); Mean Platelet Volume 9.5 fL (7.4-10.4); Monocytes # 0.5 10^3/uL (0.2-0.9); Neutrophils % 41.8 %; Nucleated Red Blood Cells % 0 %; Platelet Count 224 10^3/cmm (130-400); Red Blood Count 4.32 10^6/uL (4.1-5.3); Red Cell Distribution Width 16.8 % (12.1-15.1); White Blood Count 7.9 10^3/uL (4.0-10.0)
[2021-07-17 04:53] LABS: HCG, Serum Qual Negative (Negative)
[2021-07-17 04:58] LABS: Alanine Aminotransferase 51 U/L (0-33); Albumin Level 3.9 g/dL (3.5-5.2); Alcohol Level 297 mg/dL (0-10); Alkaline Phosphatase 58 IU/L (35-105); Anion Gap 16.4 (5-19); Aspartate Amino Transferase 58 U/L (0-32); Blood Urea Nitrogen 6 mg/dL (6-20); Calcium 8.6 mg/dL (8.5-10.5); Carbon Dioxide 23 mmol/L (22-29); Chloride 109 mmol/L (98-107); Globulin 3.3 g/dL (1.3-4.6); Glomerular Filtration Rate 115.9 mL/min (90-130); Glucose 97 mg/dL (65-115); Osmolality Calculated 298 mOsm/kg (285-295); Potassium 3.4 mmol/L (3.5-5.1); Sodium 145 mmol/L (136-145); Total Bilirubin 0.3 mg/dL (0.15-1.2); Total Protein 7.2 g/dL (6.6-8.7)
[2021-07-17 05:10] LABS: Amphetamines Screen Urine Negative (Negative); Barbiturates Screen Urine Negative (Negative); Benzodiazepines Screen Urine Negative (Negative); Cocaine Screen Urine Negative (Negative); Opiate Screen Urine Negative (Negative); PCP Screen Urine Negative (Negative); THC Screen Urine Negative (Negative)
[2021-07-17 05:17] LABS: Acetaminophen < 5.0 ug/mL (10-30); Salicylate < 0.3 mg/dL (3-10)
[2021-07-17] MEDS: lidocaine 2% viscous 15 ML, aluminum-mag hydrox-simethicon 30 ML, sucralfate oral liq 1 GM PO (05:25)
[2021-07-17 09:00] VITALS: BP 131/85; PULSE 105; RESP 16; TEMP 36.6; O2SAT 95
== END 2021-07-17 09:05 | disposition home or self-care (01) ==
PROVIDERS: Emergency Provider Emergency Medicine
DX: F17.210 Nicotine dependence, cigarettes, uncomplicated (principal); F10.129 Alcohol abuse with intoxication, unspecified; F32.A Depression, unspecified; Z79.84 Long term (current) use of oral hypoglycemic drugs; Z79.51 Long term (current) use of inhaled steroids
CPT/HCPCS: 80053; 80306; 80307; 84703; 85025; 99283

== ENCOUNTER 2021-07-24 00:55 | Emergency (ER) | payer MEDICAID, SELFPAY ==
[2021-07-24] VITALS (10 sets, daily range): BP systolic 97–145; BP diastolic 53–97; PULSE 98–120; RESP 12–22; TEMP 36.7; O2SAT 91–96; BMI 45.4
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
[2021-07-24 02:39] LABS: Glucose Point of Care 94 mg/dL (70-110)
== END 2021-07-24 06:10 | disposition home or self-care (01) ==
PROVIDERS: Emergency Provider Emergency Medicine
DX: F10.10 Alcohol abuse, uncomplicated (principal); Y90.9 Presence of alcohol in blood, level not specified; T74.11XA Adult physical abuse, confirmed, initial encounter; Y07.50 Unspecified non-family member, perpetrator of maltreatment and neglect
CPT/HCPCS: 36416; 70450; 71250; 72125; 74176; 82962; 99283

== ENCOUNTER 2021-08-29 18:33 | Emergency (ER) | payer MEDICAID, SELFPAY ==
[2021-08-29 19:10] VITALS: BP 126/85; PULSE 77; RESP 16; TEMP 36.7; O2SAT 96; BMI 43.6
--- NOTE | 2021-08-29 19:23 | CTR_ITS ---
PROCEDURE INFORMATION: Exam: CT Head Without Contrast Exam date and time: 08/29/2021 8:11 PM Age: 31 years old Clinical indication: Injury or trauma; Fall; Blunt trauma (contusions or hematomas); Patient HX: Patient fell and hit RT side of head against metal frame of a bed. C/O pain with dizziness. ; Additional info: Seizure, dizziness TECHNIQUE: Imaging protocol: Computed tomography of the head without contrast. Radiation optimization: All CT scans at this facility use at least one of these dose optimization techniques: automated exposure control; mA and/or kV adjustment per patient size (includes targeted exams where dose is matched to clinical indication); or iterative reconstruction. COMPARISON: CT head wo con* [id number] 07/24/2021 1:49 AM RADIATION DOSE METRICS: Total DLP (mGy-cm): 834.89 FINDINGS: Brain: No hemorrhage. No edema. Unremarkable white matter. Similar appearance of a 1.6 cm cyst cyst lateral to the right midbrain, likely an arachnoid cyst. No mass effect. Cerebral ventricles: No ventriculomegaly. Paranasal sinuses: Visualized sinuses are unremarkable. No fluid levels. Mastoid air cells: Visualized mastoid air cells are well aerated. Bones/joints: Unremarkable. No acute fracture. Soft tissues: Unremarkable. CT/CT head wo con* [id number] IMPRESSION: No acute intracranial abnormality.
--- NOTE | 2021-08-29 19:24 | W.ED.FALL ---
HPI - Fall General: Chief Complaint: Fall Stated Complaint: fell today/dizziness/balance issues Time Seen by Provider: 08/29/21 19:23 History of Present Illness: 31-year-old female comes in today for complaints of dizziness with a fall and shaking. Patient can recall shaking. Patient did report hitting her head. Patient also has had some changes in her medications recently. Patient has been incarcerated for about 1 [facility]. Patient does have a history of alcohol abuse. Patient appears nontoxic. Patient appears in no pain. Associated symptoms-after fall: Denies chest pain Review of Systems General: Reports: 10 or more systems reviewed and unremarkable except in HPI and below Const: Denies: fever(s) or chills Card: Denies: chest pain Resp: Denies: dyspnea GI: Denies: nausea or vomiting Neuro: Reports: dizziness and seizure-like activity [facility] ED PFSH: Medical History Alcohol abuse with alcohol-induced mood disorder Breast lump COPD (chronic obstructive pulmonary disease) CPAP (continuous positive airway pressure) dependence Essential (primary) hypertension not on any chronic treatment 09/26 Family history of alpha 1 antitrypsin deficiency Fibromyalgia Generalized anxiety disorder H/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, includes meth, heroin, others, on buprenorphine Hepatitis C antibody positive in blood Hx of abscess of skin and subcutaneous tissue right arm Major depressive disorder, recurrent, moderate Nontoxic thyroid nodule Obstructive sleep apnea (adult) (pediatric) Opioid abuse Polycystic ovarian syndrome polycystic ovaries not notated on CT abdomen/pelvis 01/26 Posttraumatic stress disorder Thrombocytopenia Tobacco dependency Unspecified asthma, uncomplicated onset in childhood Surgical History Hx of cholecystectomy Family History Other Afeoa-9-jvuyggrxnbl deficiency Drug abuse, amphetamine type Hypertension Social History Smoking and tobacco status: current every day smoker cigarettes Packs smoked per day: 1.5 Years cigarettes smoked: 15 Quit status (tobacco): considering quitting Second hand smoke exposure: Yes Smoking risk assessment/counseling performed?: No Alcohol intake: current Alcohol intake frequency: 3 or more drinks per day Alcohol type: hard liquor Desire information about alcohol rehabilitation?: No Counseling given: No Desire information about substance/drug rehabilitation?: No Counseling given: No Other details last substance use: Has used methamphetamine, heroin, pain medications. Adopted: No Caregiver/support person: No Lives independently: Yes Household members: friend(s) Housing: Manufactured/Mobile home Marital status: Single Number of children: 2 service: No Current occupational status: unemployed History of recent travel: No Current gender identity: Female Female Reproductive History: Date of last menstrual period: 12/06/20 Para: 2 Physical Exam Const: COMMON NORMALS: patient oriented x3 and alert HENMT: COMMON NORMALS: normocephalic HEAD & SCALP: normocephalic Neck/C-Spine: COMMON NORMALS: full ROM Resp: COMMON NORMALS: normal respiratory effort and clear to auscultation bilaterally AUSCULTATION: clear to auscultation bilaterally Cardio: COMMON NORMALS: regular rate and regular rhythm RATE: regular rate RHYTHM: regular rhythm Back/Pelvis: COMMON NORMALS: thoracic and lumbar spine normal to inspection Extremity: COMMON NORMALS: normal to inspection Neuro: COMMON NORMALS: patient oriented x3 SENSORIUM/ORIENTATION: Yes alert Skin: COMMON NORMALS: no rashes or lesions noted GENERAL SKIN EXAM: no rashes or lesions noted Course Vital Signs: Vital signs: Vital Signs Temperature 98.1 F 08/29/21 19:10 Pulse Rate 70 08/29/21 20:32 Respiratory Rate 19 H 08/29/21 20:32 Blood Pressure 132/71 08/29/21 20:32 Pulse Oximetry 98 08/29/21 20:32 MDM - Fall Medical Decision Making 31-year-old female comes in today for an episode of passing out with shaking. Patient recalls shaking before she came to. Patient is alert and oriented. Patient appears well. Patient at this time is in the [facility]. No focal neural deficits are noted. Vital signs are normal. Differential diagnosis includes dehydration, pseudoseizure, anxiety disorder, head injury. Urinalysis was remarkable for blood. When questioned patient is on her menstrual cycle. Negative test. EKG was normal sinus rhythm. CT of the head was unremarkable. Believe the patient probably has a combination of her being on her menstrual cycle and having some changes in her medication which is made her more prone to being lightheaded. Patient probably had a near syncopal episode due to vasovagal and hypovolemia. I encourage patient to drink plenty of fluids and follow-up with primary care for further instructions. Patient and penitentiary staff reported understanding. Lab Data Radiology Impressions Head CT 08/29/21 19:23 IMPRESSION: No acute intracranial abnormality. Laboratory Results Urine Color Yellow (Yellow) 08/29/21 19:40 Urine Appearance Clear (CLEAR) 08/29/21 19:40 Urine pH 6 (5-7) 08/29/21 19:40 Ur Specific [place] 1.010 (1.005-1.030) 08/29/21 19:40 Urine Protein Neg (Negative) 08/29/21 19:40 Urine Glucose (UA) Norm (Normal) 08/29/21 19:40 Urine Ketones Negative (Negative) 08/29/21 19:40 Urine Blood 3+ (Negative) H 08/29/21 19:40 Urine Nitrate Negative (Negative) 08/29/21 19:40 Urine Bilirubin Neg (Negative) 08/29/21 19:40 Urine Urobilinogen Norm mg/dL (Negative) 08/29/21 19:40 Ur Leukocyte Esterase Negative (Negative) 08/29/21 19:40 Urine RBC 5-10 /hpf (0-2) H 08/29/21 19:40 Urine WBC 10-15 /hpf (0-5) H 08/29/21 19:40 Ur Squamous Epith Cells 10-15 /hpf (0-5) H 08/29/21 19:40 Amorphous Sediment 2+ /hpf 08/29/21 19:40 Urine Bacteria Trace /hpf (NONE) 08/29/21 19:40 Urine HCG, Qual Negative (Negative) 08/29/21 19:40 EKG Data EKG 1: EKG interpretation date: 08/29/21 EKG interpretation time: 19:49 Prior EKG tracings: not available for review Interpretation: EKG shows sinus rhythm with a regular rate at 69 bpm, computer interprets as normal EKG, no ST elevation or ectopy is noted. No prior exam was available for comparison. Discharge Plan Discharge Patient Disposition: Home Clinical Impression: Adverse drug effect Qualifiers: Encounter type: initial encounter Qualified Code(s): T50.905A - Adverse effect of unspecified drugs, medicaments and biological substances, initial encounter Condition: Stable Prescriptions: No Action (DME) CPAP See Rx Instructions .ROUTE .MEDSUPPLY Qty: 1 0RF Rx Instructions: As directed albuterol sulfate [ProAir HFA] 90 mcg/actuation HFA aerosol inhaler 2 puff inhalation QID PRN (Reason: shortness of breath or wheezing) 30 Days Qty: 6.7 2RF doxepin 50 mg capsule 50 mg PO TID Qty: 90 2RF fluticasone propion-salmeterol [Advair Diskus] 250-50 mcg/dose blister with device 1 inh inhalation BID Qty: 60 2RF folic acid 1 mg tablet 1,000 mcg PO DAILY Qty: 30 2RF prazosin 2 mg capsule 2 mg PO BEDTIME Qty: 30 2RF trazodone 100 mg tablet 100 mg PO BEDTIME 30 Days Qty: 30 2RF venlafaxine 150 mg capsule,extended release 24hr 150 mg PO DAILY Qty: 30 2RF acetaminophen [Tylenol Extra Strength] 500 mg tablet 500 mg PO .2 times day PRN (Reason: fever) Qty: 30 2RF (DME) pillow See Rx Instructions .Route .MEDSUPPLY Qty: 1 0RF Rx Instructions: As directed (DME) nebulizer accessories Kit See Rx Instructions .ROUTE .MEDSUPPLY Qty: 1 0RF Rx Instructions: As directed Tab-A-Lucy 400 mcg tablet 1 tab PO DAILY 0RF Discharge Orders: Discharge ED (Routine); Ordered 08/29/21 Ordered By: Evens Barr Referrals: David Villar, [facility] [Primary Care Provider] - Discharge Diet: Usual diet Discharge Activity: Increase activity as tolerated Patient Instructions: Lightheadedness (ED) Activity Restrictions/Additional Instructions: Drink plenty of fluids. Take your time changing position. Healthy diet and activity. Follow-up with primary care for further instruction and evaluation of medication and need to change medications. Return to ER for fever greater than 100.4, inability to hold fluids down, or chest pain. Coding Level of Care Code ED Slitter Service And Setter for Bartolo Fwcassius Exam Comprehensive
--- NOTE | 2021-08-29 19:25 | ECG_ITS ---
[facility] Test Date: 2021-08-29 Pat Name: Wendy Foss Department: Room: Gender: Female Filter Washer: : 1990 Requested By: Evens Castaneda Order Number: [id number] Frieda MD: Arabella Mariscal M.D. Measurements Intervals [place] Rate: 69 P: 51 FL: 151 QRS: 19 QRSD: 89 T: 37 QT: 396 QTc: 425 Interpretive Statements SINUS RHYTHM Compared to ECG 08/20/2020 23:55:19 Sinus tachycardia no longer present ST (T wave) deviation no longer present Electronically Signed On 08-29-2021 22:24:53 CDT by Arabella Mariscal M.D. [email or web address]
[2021-08-29 20:24] LABS: Urine Appearance Clear (CLEAR); Urine Color Yellow (Yellow); pH Urine 6 (5-7)
[2021-08-29 20:25] LABS: Add Urine Culture? No; Add Urine Microscopic? YES; Amorphous Sediment Urine 2+ /hpf; Bacteria Urine TRACE /hpf; Bilirubin Urine Neg (Negative); Blood Urine 3+ (Negative); Glucose Urine UA Norm (Normal); Ketones Urine Negative (Negative); Leukocyte Esterase Urine Negative (Negative); Nitrate Urine Negative (Negative); Protein Urine Neg (Negative); Urobilinogen Urine Norm (Negative)
[2021-08-29 20:32] VITALS: BP 132/71; PULSE 70; RESP 19; O2SAT 98
[2021-08-29 20:58] VITALS: BP 143/99; PULSE 68; RESP 18; O2SAT 98
== END 2021-08-29 20:59 | disposition home or self-care (01) ==
PROVIDERS: Emergency Provider Nurse Practitioner Family; PCP Nurse Practitioner
DX: T88.7XXA Unspecified adverse effect of drug or medicament, initial encounter (principal); T50.905A Adverse effect of unspecified drugs, medicaments and biological substances, initial encounter; J44.9 Chronic obstructive pulmonary disease, unspecified; I10 Essential (primary) hypertension; Z86.19 Personal history of other infectious and parasitic diseases; F17.210 Nicotine dependence, cigarettes, uncomplicated
CPT/HCPCS: 70450; 81001; 81025; 93005; 99284

== ENCOUNTER 2021-08-30 20:38 | Emergency (ER) | payer MEDICAID, SELFPAY ==
--- NOTE | 2021-08-30 20:33 | CTR_ITS ---
PROCEDURE INFORMATION: Exam: CT Maxillofacial Without Contrast Exam date and time: 08/30/2021 8:55 PM Age: 31 years old Clinical indication: Injury or trauma; Blunt trauma (contusions or hematomas); Patient HX: Fall today due to seizure. Small lac to bridge of nose. History of skull fracture. TECHNIQUE: Imaging protocol: Computed tomography of the of the face without contrast. Radiation optimization: All CT scans at this facility use at least one of these dose optimization techniques: automated exposure control; mA and/or kV adjustment per patient size (includes targeted exams where dose is matched to clinical indication); or iterative reconstruction. COMPARISON: CT head wo con* [id number] 08/30/2021 8:53 PM RADIATION DOSE METRICS: Total DLP (mGy-cm): 673.56 FINDINGS: Orbital cavities: Orbits are normal. Globes are unremarkable. Bones/joints: There are slightly depressed fractures of both nasal bones. Paranasal sinuses: Mucosal thickening throughout the visualized paranasal sinuses. Soft tissues: There is air and soft tissue swelling over the bridge of the nose. Other findings: The ostiomeatal units are patent bilaterally. CT/CT facial bones wo con* [id number] IMPRESSION: Slightly depressed bilateral nasal bone fractures with overlying laceration and soft tissue swelling.
--- NOTE | 2021-08-30 20:33 | CTR_ITS ---
PROCEDURE INFORMATION: Exam: CT Head Without Contrast Exam date and time: 08/30/2021 8:53 PM Age: 31 years old Clinical indication: Injury or trauma; Blunt trauma (contusions or hematomas); Patient HX: Fall today due to seizure. History of skull fracture. TECHNIQUE: Imaging protocol: Computed tomography of the head without contrast. Radiation optimization: All CT scans at this facility use at least one of these dose optimization techniques: automated exposure control; mA and/or kV adjustment per patient size (includes targeted exams where dose is matched to clinical indication); or iterative reconstruction. COMPARISON: CT head wo con* [id number] 08/29/2021 8:11 PM RADIATION DOSE METRICS: Total DLP (mGy-cm): 716.1 FINDINGS: Brain: Stable probable arachnoid cyst along the right cerebral peduncle. No evidence of intracranial hemorrhage, mass effect, midline shift or extra-axial fluid collections. Midline structures are normal. Johnson-white matter differentiation is normal. Cerebral ventricles: No ventriculomegaly. Paranasal sinuses: Mucosal thickening in the ethmoid, sphenoid and frontal sinuses. Mastoid air cells: Visualized mastoid air cells are well aerated. Bones/joints: Unremarkable. No acute fracture. Soft tissues: Unremarkable. CT/CT head wo con* [id number] IMPRESSION: No acute intracranial injury.
[2021-08-30 21:02] VITALS: BP 117/95; PULSE 80; RESP 18; TEMP 36.6; O2SAT 97; BMI 43.7
--- NOTE | 2021-08-30 21:03 | XRR_ITS ---
PROCEDURE INFORMATION: Exam: XR Left Shoulder Exam date and time: 08/30/2021 9:56 PM Age: 31 years old Clinical indication: Injury or trauma; Fall; Blunt trauma (contusions or hematomas); Shoulder; Left; Additional info: Fall, during seizure TECHNIQUE: Imaging protocol: Radiologic exam of the Left shoulder. Views: 2 or more views. COMPARISON: CT chest abd pel wo con 07/24/2021 1:56 AM FINDINGS: Bones/joints: Normal. Soft tissues: Normal. XR/XR shoulder LT min 2V* [id number] IMPRESSION: No acute findings.
--- NOTE | 2021-08-30 21:05 | W.ED.SYNCOPE ---
HPI - Syncope General: Chief Complaint: Syncope Stated Complaint: POSSIBLE SEIZURE Time Seen by Provider: 08/30/21 21:01 Source: patient and police Mode of arrival: other (police) Limitations: no limitations History of Present Illness: 31-year-old female is here from [facility] states that she had a seizure yesterday and today while in [facility]. She states that she hit her head and the bridge of her nose along with her left shoulder. States she has some pain to her head nose and left shoulder she rates a 4 out of 10 patient denies any other injuries denies neck pain she is ambulatory she is awake alert has no other complaints at this time. Associated symptoms: Reports headache(s); Deny abdominal pain, chest pain, fever(s) or nausea Review of Systems Const: Denies: fever(s), chills, body aches or change in appetite Eyes: Denies: blurry vision or eye discomfort ENMT: Denies: throat pain or dental pain Card: Denies: chest pain Resp: Denies: dyspnea GI: Denies: abdominal pain, nausea, vomiting or diarrhea : Denies: dysuria Musc: Reports: extremity pain Skin/Breast: Denies: rash Neuro: Reports: headache(s) Psych: Denies: depression Dg/Lymph: Denies: easy bruising All/Imm: Denies: urticaria PFSH ED PFSH: Medical History Alcohol abuse with alcohol-induced mood disorder Breast lump COPD (chronic obstructive pulmonary disease) CPAP (continuous positive airway pressure) dependence Essential (primary) hypertension not on any chronic treatment 09/26 Family history of alpha 1 antitrypsin deficiency Fibromyalgia Generalized anxiety disorder H/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, includes meth, heroin, others, on buprenorphine Hepatitis C antibody positive in blood Hx of abscess of skin and subcutaneous tissue right arm Major depressive disorder, recurrent, moderate Nontoxic thyroid nodule Obstructive sleep apnea (adult) (pediatric) Opioid abuse Polycystic ovarian syndrome polycystic ovaries not notated on CT abdomen/pelvis 01/26 Posttraumatic stress disorder Thrombocytopenia Tobacco dependency Unspecified asthma, uncomplicated onset in childhood Surgical History Hx of cholecystectomy Family History Other Tzxyo-6-[id number] deficiency Drug abuse, amphetamine type Hypertension Social History Smoking and tobacco status: current every day smoker cigarettes Packs smoked per day: 1.5 Years cigarettes smoked: 15 Quit status (tobacco): considering quitting Second hand smoke exposure: Yes Smoking risk assessment/counseling performed?: No Alcohol intake: current Alcohol intake frequency: 3 or more drinks per day Alcohol type: hard liquor Desire information about alcohol rehabilitation?: No Counseling given: No Desire information about substance/drug rehabilitation?: No Counseling given: No Other details last substance use: Has used methamphetamine, heroin, pain medications. Adopted: No Caregiver/support person: No Lives independently: Yes Household members: friend(s) Housing: Manufactured/Mobile home Marital status: Single Number of children: 2 service: No Current occupational status: unemployed History of recent travel: No Current gender identity: Female Female Reproductive History: Date of last menstrual period: 08/29/21 Para: 2 Physical Exam Const: COMMON NORMALS: no acute distress, patient oriented x3 and healthy appearing HENMT: COMMON NORMALS: normocephalic HEAD & SCALP: normocephalic OTHER: small less than 1cm superficial laceration to bridge of nose Eye: COMMON NORMALS: Equal, round and reactive pupils present and EOMs intact bilaterally PUPIL: Yes Equal, round and reactive pupils present Neck/C-Spine: COMMON NORMALS: full ROM and supple Chest: COMMONS NORMALS: normal inspection of the chest and normal palpation of entire chest wall Resp: COMMON NORMALS: normal respiratory effort, No retractions, No use of accessory muscles and clear to auscultation bilaterally AUSCULTATION: clear to auscultation bilaterally Cardio: COMMON NORMALS: regular rate, regular rhythm and No murmurs present (Cardio) RATE: regular rate RHYTHM: regular rhythm GI: COMMON NORMALS: Normal to inspection, nondistended, normoactive bowel sounds present, Soft to palpation, non-tender and no masses PALPATION: Yes Soft to palpation Extremity: COMMON NORMALS: normal to inspection and full ROM Neuro: COMMON NORMALS: patient oriented x3, moves all extremities and no focal motor deficits Psych: COMMON NORMALS: mental status grossly normal, Normal thought process present and cooperative THOUGHT PROCESS: Normal thought process present Skin: COMMON NORMALS: no rashes or lesions noted and no wounds GENERAL SKIN EXAM: no rashes or lesions noted Course Vital Signs: Vital signs: Vital Signs Temperature 97.8 F 08/30/21 21:02 Pulse Rate 80 08/30/21 21:02 Respiratory Rate 18 08/30/21 21:02 Blood Pressure 117/95 08/30/21 21:02 Pulse Oximetry 97 08/30/21 21:02 MDM - Syncope Medical Decision Making Patient presents here with nasal fracture from a seizure and a fall she has a superficial laceration does not require repair. We will get her follow-up with ENT she is stable for discharge return if worsening. Lab Data Radiology Impressions Face CT 08/30/21 20:33 IMPRESSION: Slightly depressed bilateral nasal bone fractures with overlying laceration and soft tissue swelling. Head CT 08/30/21 20:33 IMPRESSION: No acute intracranial injury. Discharge Plan Discharge Patient Disposition: Home Clinical Impression: Nasal bone fracture, Seizure Condition: Stable Prescriptions: New Naprosyn 500 mg tablet 500 mg PO BID PRN (Reason: pain) Qty: 20 0RF No Action (DME) CPAP See Rx Instructions .ROUTE .MEDSUPPLY Qty: 1 0RF Rx Instructions: As directed albuterol sulfate [ProAir HFA] 90 mcg/actuation HFA aerosol inhaler 2 puff inhalation QID PRN (Reason: shortness of breath or wheezing) 30 Days Qty: 6.7 2RF doxepin 50 mg capsule 50 mg PO TID Qty: 90 2RF fluticasone propion-salmeterol [Advair Diskus] 250-50 mcg/dose blister with device 1 inh inhalation BID Qty: 60 2RF folic acid 1 mg tablet 1,000 mcg PO DAILY Qty: 30 2RF prazosin 2 mg capsule 2 mg PO BEDTIME Qty: 30 2RF trazodone 100 mg tablet 100 mg PO BEDTIME 30 Days Qty: 30 2RF venlafaxine 150 mg capsule,extended release 24hr 150 mg PO DAILY Qty: 30 2RF acetaminophen [Tylenol Extra Strength] 500 mg tablet 500 mg PO .2 times day PRN (Reason: fever) Qty: 30 2RF (DME) pillow See Rx Instructions .Route .MEDSUPPLY Qty: 1 0RF Rx Instructions: As directed (DME) nebulizer accessories Kit See Rx Instructions .ROUTE .MEDSUPPLY Qty: 1 0RF Rx Instructions: As directed Tab-A-Lucy 400 mcg tablet 1 tab PO DAILY 0RF Discharge Orders: Discharge ED (Routine); Ordered 08/30/21 Ordered By: Niranjan Martinez Referrals: David Villar, [facility] [Primary Care Provider] - Ángel Jones MD [Physician] - 1-3 days Discharge Diet: Advance as tolerated Discharge Activity: Resume usual activity Patient Instructions: Nasal Fracture (ED) Coding Level of Care Code ED [employer] Product Manager for Chg Fwd Exam Comprehensive
[2021-08-30] MEDS: naproxen 500 mg Tablet PO (21:32)
--- NOTE | 2021-08-31 14:48 | DCPLANNER ---
Addendum entered by Cynthia Apodaca 10/01/21 10:47: Appointment cancelled Original Note: dry cleaning manager had message to schedule a follow up appointment for patient with ENT. dry cleaning manager sent patients information to the front office staff at ENT. Patients information will be printed and reviewed. Clinic will call patient with appointment information.
== END 2021-08-30 22:44 | disposition home or self-care (01) ==
PROVIDERS: Emergency Provider Emergency Medicine; PCP Nurse Practitioner
DX: R56.9 Unspecified convulsions (principal); S02.2XXA Fracture of nasal bones, initial encounter for closed fracture; J44.9 Chronic obstructive pulmonary disease, unspecified; I10 Essential (primary) hypertension; Z86.19 Personal history of other infectious and parasitic diseases; F17.210 Nicotine dependence, cigarettes, uncomplicated; W22.09XA Striking against other stationary object, initial encounter
CPT/HCPCS: 70450; 70486; 73030; 99283

== ENCOUNTER → 2022-02-07 15:42 | Outpatient (BNVA) | payer MEDICAID, SELFPAY | PROVIDERS: PCP Nurse Practitioner; Visit Provider Nurse Practitioner | DX: Z11.3 Encounter for screening for infections with a predominantly sexual mode of transmission (principal); R73.9 Hyperglycemia, unspecified | CPT/HCPCS: 81000; 87491; 87591 ==

== ENCOUNTER 2022-02-22 12:22 | Inpatient (IN) | payer MEDICAID, SELFPAY ==
[2022-02-22 12:30] VITALS: BMI 44.6
--- NOTE | 2022-02-22 12:31 | ECG_ITS ---
[facility] Test Date: 2022-02-22 Pat Name: Wendy Foss Department: Room: Gender: Female Chief Airport Guide: : 1990 Requested By: Gaetano Wilson Order Number: [id number] Frieda MD: Celso Kendall M.D. Measurements Intervals [place] Rate: 117 P: -2 MA: 133 QRS: -2 QRSD: 82 T: 26 QT: 310 QTc: 434 Interpretive Statements SINUS TACHYCARDIA Compared to ECG 08/29/2021 19:41:01 Sinus rhythm no longer present Electronically Signed On 02-22-2022 15:17:16 TAX ADJUSTER by Cleso Kendall M.D. [id number]
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
[2022-02-22] MEDS: LORazepam 1 mg Tablet PO (13:37)
[2022-02-22 14:03] LABS: Influenza A by IFA negative (Negative); Influenza B by IFA negative (Negative)
[2022-02-22 14:04] LABS: SARS Covid-2 Antigen negative (Negative)
[2022-02-22 14:51] LABS: Basophils % 0.5 %; Eosinophils # 0.2 10^3/uL (0.0-0.8); Eosinophils % 2.6 %; Hematocrit 43.4 % (37.0-47.0); Hemoglobin 14.2 g/dL (11.5-15.3); Lymphocytes % 24.6 %; Mean Corpuscular HGB Conc 32.7 g/dL (30.0-36.0); Mean Corpuscular Hemoglobin 29.6 pg (28.0-34.0); Mean Corpuscular Volume 90.4 fl (81-99); Mean Platelet Volume 9.8 fL (7.4-10.4); Monocytes # 0.3 10^3/uL (0.2-0.9); Monocytes % 3.7 %; Neutrophils # 5.53 10^3/uL (1.8-7.7); Neutrophils % 68.4 %; Nucleated Red Blood Cells % 0 %; Platelet Count 199 10^3/cmm (130-400); Red Cell Distribution Width 13.8 % (12.1-15.1); White Blood Count 8.1 10^3/uL (4.0-10.0)
[2022-02-22 14:58] LABS: HCG Qualitative Urine. Negative (Negative)
[2022-02-22 15:00] VITALS: PULSE 110; RESP 17; O2SAT 98
[2022-02-22 15:25] LABS: Amphetamines Screen Urine Negative (Negative); Barbiturates Screen Urine Negative (Negative); Benzodiazepines Screen Urine Negative (Negative); Cocaine Screen Urine Negative (Negative); Opiate Screen Urine Negative (Negative); PCP Screen Urine Negative (Negative); THC Screen Urine Negative (Negative)
[2022-02-22 15:34] LABS: Alanine Aminotransferase 57 U/L (0-33); Albumin Level 3.7 g/dL (3.5-5.2); Alcohol Level 282 mg/dL (0-10); Alkaline Phosphatase 64 U/L (35-105); Aspartate Amino Transferase 77 U/L (0-32); Blood Urea Nitrogen 14 mg/dL (6-20); Calcium 8.1 mg/dL (8.5-10.5); Chloride 105 mmol/L (98-107); Globulin 3.2 g/dL (1.3-4.6); Glomerular Filtration Rate 72.6 mL/min (90-130); Glucose 203 mg/dL (65-115); Osmolality Calculated 302 mOsm/kg (285-295); Sodium 143 mmol/L (136-145); Total Bilirubin 0.3 mg/dL (0.15-1.2); Total Protein 6.9 g/dL (6.6-8.7)
[2022-02-22 15:35] LABS: Acetaminophen < 5.0 ug/mL (10-30); Salicylate < 0.3 mg/dL (3-10)
[2022-02-22 15:42] LABS: Potassium 3.9 mmol/L (3.5-5.1)
[2022-02-22 15:49] LABS: Bacteria Urine TRACE /hpf; Bilirubin Urine 1+ (Negative); Blood Urine Trace (Negative); Glucose Urine UA Norm (Normal); Hyaline Casts Urine 0-4 /lpf; Ketones Urine 1+ (Negative); Leukocyte Esterase Urine Negative (Negative); Mucus Urine TRACE /hpf; Nitrate Urine Negative (Negative); Protein Urine 1+ (Negative); RBC Urine 0-4 /hpf (0-2); Specific Gravity, Urine 1.025 (1.005-1.030); Squamous Epithelial Cell Urine 0-4 /hpf (0-5); Urine Appearance Clear (CLEAR); Urine Color Straw (Yellow); Urobilinogen Urine 4 mg/dL (Negative); WBC Urine 0-4 /hpf (0-5); pH Urine 5 (5-7)
[2022-02-22 16:05] VITALS: BP 146/102; PULSE 126; RESP 20; TEMP 36.4; O2SAT 93
[2022-02-22 16:27] LABS: Anion Gap 23.9 (5-19); Carbon Dioxide 18 mmol/L (22-29); Thyroid Stimulating Hormone 0.24 uIU/mL (0.27-4.20)
[2022-02-22 17:00] VITALS: O2SAT 98
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
[2022-02-22 17:24] VITALS: PULSE 115; O2SAT 98
[2022-02-22] MEDS: ondansetron 4 MG Tablet PO (17:48)
[2022-02-22] MEDS: LORazepam 2 mg/mL INJ 1 mL IM (17:53)
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
[2022-02-22 20:11] VITALS: BP 135/86; PULSE 126; RESP 18; TEMP 37.1; O2SAT 95
[2022-02-23 06:00] VITALS: RESP 18
--- NOTE | 2022-02-23 07:54 | P.NPUHP_ITS ---
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 affect subdued. Thought process organized. Thought content: Patient denied suicidal or homicidal ideation, there were no delusions reported or noted, she denied any auditory or visual hallucinations. Attention and concentration appeared intact and memory was mostly reliable but none were formally tested. She is alert and oriented x3. Insight and judgment are limited and impulse control is impaired. Vitals/I&O/Wt Last Vital Signs Temp 98.8 F 02/22/22 20:11 Pulse 126 H 02/22/22 20:11 Resp 18 02/23/22 06:00 BP 135/86 02/22/22 20:11 Pulse Ox 95 02/22/22 20:11 O2 Del Method 02/22/22 17:31 Weight last 48 hrs Weight 117.934 kg Data NPU 02/22/22 14:32 02/22/22 14:32 A&P Assessment and plan (1) Homicidal ideations: (2) Alcohol intoxication in active alcoholic without complication: (3) CPAP (continuous positive airway pressure) dependence: (4) Obstructive sleep apnea (adult) (pediatric): (5) Generalized anxiety disorder: (6) Posttraumatic stress disorder: (7) Major depressive disorder, recurrent: Plan This is a 31-year-old white female with a long history of mental health diagnoses including depression and PTSD, significant past addiction most notably alcohol most recently released from long term about a month ago with continued legal issues, on probation but having significant psychosocial challenges who presents intoxicated on a 96-hour hold. 1.? Continue current medication. We will restart Effexor XR 37.5 mg and trazodone 100 mg p.o. nightly. 2.? Continue every 15 minute checks for safety. 3.? Encourage individual, group and milieu therapies. 4.? Encourage sober living treatment after discharge at the highest level of care to which he is willing to commit. 5. Continue CIWA protocol. Involuntary Hold Information 96 Hour Hold: 96 Hour Involuntary Admission: Yes 96 Hour Hold Ending Date: 02/28/22 96 Hour Hold Ending Time: 16:05 Attestations NPU Medical Necessity Statement*: Inpatient hospitalization is medically necessary and the clinically appropriate intervention at this time. We will monitor medications and make changes as indicated. Patient will be in the hospital for over two midnights. Likely length of stay 3-5 days. Coding Level of Care Code Acute Perinatal Director for Chg Fwd Diagnoses Homicidal ideations R45.850 Alcohol intoxication in active alcoholic without complication F10.220 CPAP (continuous positive airway pressure) dependence Z99.89 Obstructive sleep apnea (adult) (pediatric) G47.33 Generalized anxiety disorder F41.1 Posttraumatic stress disorder F43.10 Major depressive disorder, recurrent F33.9
[2022-02-23] MEDS: trazodone 50 mg Tablet PO (08:33)
[2022-02-23] MEDS: LORazepam 2 mg Tablet PO (08:33)
[2022-02-23] MEDS: venlafaxine ER (24HR) 75 mg Capsule PO (08:33)
[2022-02-23] MEDS: cetirizine 10 mg Tablet PO (08:33)
[2022-02-23] MEDS: famotidine 20 mg Tablet 40 MG PO (08:33)
[2022-02-23] MEDS: thiamine 100 mg Tablet PO (08:33)
[2022-02-23] MEDS: folic acid 1 mg Tablet PO (08:33)
[2022-02-23] MEDS: acetaminophen 325 mg Tablet 650 MG PO (08:33)
[2022-02-23] MEDS: multivitamin therapeutic Tablet 1 TAB PO (08:34)
[2022-02-23 14:00] VITALS: BP 137/78; PULSE 93; RESP 17; TEMP 36.5; O2SAT 98
[2022-02-23 15:58] VITALS: PULSE 107; RESP 16; O2SAT 96
[2022-02-23 20:38] VITALS: BP 153/96; PULSE 93; RESP 16; TEMP 36.7; O2SAT 96
[2022-02-24] MEDS: hyDROXYzine 25 mg Capsule 50 MG PO ×2 (01:21→19:38)
[2022-02-24] MEDS: trazodone 50 mg Tablet PO ×2 (01:21→19:38)
[2022-02-24 05:13] VITALS: RESP 16
[2022-02-24] MEDS: folic acid 1 mg Tablet PO (08:18)
[2022-02-24] MEDS: cetirizine 10 mg Tablet PO (08:18)
[2022-02-24] MEDS: multivitamin therapeutic Tablet 1 TAB PO (08:18)
[2022-02-24] MEDS: venlafaxine ER (24HR) 75 mg Capsule PO (08:18)
[2022-02-24] MEDS: thiamine 100 mg Tablet PO (08:18)
[2022-02-24] MEDS: famotidine 20 mg Tablet 40 MG PO (08:19)
[2022-02-24] MEDS: OLANZapine 5 mg ODT PO (08:24)
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
[2022-02-24 14:00] VITALS: BP 129/83; PULSE 80; RESP 18; TEMP 36.7; O2SAT 96
--- NOTE | 2022-02-24 19:03 | P.NPUPN_ITS ---
Subjective NPU Subjective: Patient's 31-year-old white female with alcohol dependence admitted with suicidal ideation voluntarily after overdosing on Benadryl. The patient had reported that she had not attempted to hurt herself when she had taken the benadryl. She reports that she had recently been [facility] from [facility] based on an methamphetamine possession charge. Had resumed alcohol consumption and reported having some increased anxiety today. She reports that she has had a history of teasing before DT's in the past. She reports continued use of alcohol and states that she is currently not receiving any treatment for her substance abuse. She reports continued depression. She had endorsed some feelings of hopelessness. Patient had an alcohol level of 282 on admission. She was reporting some alcohol withdrawal symptoms today. Mental Status Exam MSE Comments: This is a morbidly obese white female in hospital scrubs, malodorous, with limited grooming and adequate eye contact. No abnormal involuntary motor movements except for psychomotor retardation. Cooperative with exam in mild distress. Speech was decreased rate and volume. Mood described as okay. Her affect was mood incongruent and subdued. Her thought process was mostly organized. Thought content: Patient denied suicidal or homicidal ideation, there were no delusions reported or noted, she denied any auditory or visual hallucinations. Attention and concentration appeared intact and memory was mostly reliable but none were formally tested. She is alert and oriented x3. Insight is poor and judgment are limited. Her impulse control is impaired. Vitals/I&O/Wt Last Vital Signs Temp 98.0 F 02/24/22 14:00 Pulse 80 02/24/22 14:00 Resp 18 02/24/22 14:00 BP 129/83 02/24/22 14:00 Pulse Ox 96 02/24/22 14:00 O2 Del Method 02/23/22 15:58 Weight last 48 hrs Weight 131.088 kg Data NPU 02/22/22 14:32 02/22/22 14:32 A&P Assessment and plan (1) Homicidal ideations: (2) Alcohol intoxication in active alcoholic without complication: (3) CPAP (continuous positive airway pressure) dependence: (4) Obstructive sleep apnea (adult) (pediatric): (5) Generalized anxiety disorder: (6) Posttraumatic stress disorder: (7) Major depressive disorder, recurrent: Plan This is a 31-year-old white female with a long history of mental health diagnoses including depression and PTSD, significant past addiction most notably alcohol most recently released from [facility] about a month ago with continued legal issues, on probation but having significant psychosocial challenges who pr esents intoxicated on a 96-hour hold. 1.? Continue current medication. Continue titration of effexor xr to 150mg in am (currently at 75mg daily)and trazodone 100 mg p.o. nightly. 2.? Continue every 15 minute checks for safety. 3.? Encourage individual, group and milieu therapies. 4.? Encourage sober living treatment after discharge at the highest level of care to which he is willing to commit. 5. Continue CIWA protocol. Involuntary Hold Information 96 Hour Hold: 96 Hour Involuntary Admission: Yes 96 Hour Hold Ending Date: 02/28/22 96 Hour Hold Ending Time: 16:05 Attestations NPU Medical Necessity Statement*: Inpatient hospitalization is medically necessary and the clinically appropriate intervention at this time. We will monitor medications and make changes as indicated. Patient likely length of stay is 3- 5 days. Coding Level of Care Code Established Pt Acute Gas Fitter Helper for Jerg Fwd Patient Type Established History Problem Focused Exam Problem Focused Medical Decision Making Straight Forward Diagnoses Homicidal ideations R45.850 Alcohol intoxication in active alcoholic without complication F10.220 CPAP (continuous positive airway pressure) dependence Z99.89 Obstructive sleep apnea (adult) (pediatric) G47.33 Generalized anxiety disorder F41.1 Posttraumatic stress disorder F43.10 Major depressive disorder, recurrent F33.9
[2022-02-24] MEDS: LORazepam 2 mg Tablet PO (19:38)
[2022-02-24 20:32] VITALS: BP 137/101; PULSE 94; RESP 18; TEMP 36.6; O2SAT 97
[2022-02-25 06:00] VITALS: RESP 18
[2022-02-25] MEDS: multivitamin therapeutic Tablet 1 TAB PO (08:29)
[2022-02-25] MEDS: thiamine 100 mg Tablet PO (08:29)
[2022-02-25] MEDS: venlafaxine ER (24HR) 75 mg Capsule PO (08:29)
[2022-02-25] MEDS: cetirizine 10 mg Tablet PO (08:29)
[2022-02-25] MEDS: famotidine 20 mg Tablet 40 MG PO (08:29)
[2022-02-25] MEDS: folic acid 1 mg Tablet PO (08:29)
[2022-02-25] MEDS: nicotine 2 mg Gum BUCCAL ×3 (11:57→19:24)
[2022-02-25 14:00] VITALS: BP 129/81; PULSE 77; RESP 20; TEMP 36.9; O2SAT 98
[2022-02-25] MEDS: hyDROXYzine 25 mg Capsule 50 MG PO ×2 (14:15→20:19)
[2022-02-25 20:12] VITALS: BP 140/80; PULSE 84; RESP 17; TEMP 36.7; O2SAT 99
[2022-02-25] MEDS: trazodone 50 mg Tablet PO (20:19)
[2022-02-25] MEDS: nicotine 4 mg lozenge MUCOUS MEM (20:23)
--- NOTE | 2022-02-25 23:23 | P.NPUPN_ITS ---
Subjective NPU Subjective: Patient's 31-year-old white female with alcohol dependence admitted with suicidal ideation voluntarily after overdosing on Benadryl. The patient had reported that she had not attempted to hurt herself when she had taken the benadryl. Patient reported that she was feeling better. She had rep orted having some anxiety but did not appear to score on the alcohol withdrawal scale today. She had endorsed a past history of delirium tremens in the past but reported that she had sober for several months prior to starting alcohol again a few months ago. She had also reported a history of amphetamine abuse as well as alcohol abuse. Mental Status Exam MSE Comments: This is a morbidly obese white female in hospital scrubs, malodorous, with limited grooming and adequate eye contact. No abnormal involuntary motor movements except for psychomotor retardation. Cooperative with exam in mild distress. Speech was normal in rate and volume. Mood described as okay. Her affect was somewhat restricted. Her thought process was mostly organized. Thought content: Patient denied suicidal or homicidal ideation, there were no delusions reported or noted, she denied any auditory or visual hallucinations. Attention and concentration appeared intact and memory was mostly reliable but none were formally tested. She is alert and oriented x3. Insight is poor and judgment are limited. Her impulse control is impaired. Vitals/I&O/Wt Last Vital Signs Temp 98.0 F 02/25/22 20:12 Pulse 84 02/25/22 20:12 Resp 17 02/25/22 20:12 BP 140/80 02/25/22 20:12 Pulse Ox 99 02/25/22 20:12 O2 Del Method 02/23/22 15:58 Weight last 48 hrs Weight 131.088 kg Data NPU 02/22/22 14:32 02/22/22 14:32 A&P Assessment and plan (1) Homicidal ideations: (2) Alcohol intoxication in active alcoholic without complication: (3) CPAP (continuous positive airway pressure) dependence: (4) Obstructive sleep apnea (adult) (pediatric): (5) Generalized anxiety disorder: (6) Posttraumatic stress disorder: (7) Major depressive disorder, recurrent: Plan This is a 31-year-old white female with a long history of mental health diagnoses including depression and PTSD, significant past addiction most notably alcohol most recently released from long term about a month ago with continued legal issues, on probation but having significant psychosocial challenges who presents intoxicated on a 96-hour hold. 1.? Continue current medication. Continue titration of effexor xr to 150mg in am tommorow and trazodone 100 mg p.o. nightly. 2.? Continue every 15 minute checks for safety. 3.? Encourage individual, group and milieu therapies. 4.? Encourage sober living treatment after discharge at the highest level of care to which he is willing to commit. 5. Continue [facility] protocol.-referral for outpatient substance abuse treatment. Involuntary Hold Information 96 Hour Hold: 96 Hour Involuntary Admission: Yes 96 Hour Hold Ending Date: 02/28/22 96 Hour Hold Ending Time: 16:05 Attestations NPU Medical Necessity Statement*: Inpatient hospitalization is medically necessary and the clinically appropriate intervention at this time. We will monitor medications and make changes as indicated. Patient likely length of stay is 3- 5 days. Coding Level of Care Code Established Pt Acute Pickup Driver for Bartolo Fwcassius Patient Type Established History Problem Focused Exam Problem Focused Medical Decision Making Straight Forward Diagnoses Homicidal ideations R45.850 Alcohol intoxication in active alcoholic without complication F10.220 CPAP (continuous positive airway pressure) dependence Z99.89 Obstructive sleep apnea (adult) (pediatric) G47.33 Generalized anxiety disorder F41.1 Posttraumatic stress disorder F43.10 Major depressive disorder, recurrent F33.9
[2022-02-26 06:00] VITALS: RESP 18
[2022-02-26] MEDS: thiamine 100 mg Tablet PO (08:22)
[2022-02-26] MEDS: nicotine 4 mg lozenge MUCOUS MEM (08:22)
[2022-02-26] MEDS: multivitamin therapeutic Tablet 1 TAB PO (08:22)
[2022-02-26] MEDS: folic acid 1 mg Tablet PO (08:22)
[2022-02-26] MEDS: venlafaxine ER (24HR) 75 mg Capsule 150 MG PO (08:22)
[2022-02-26] MEDS: cetirizine 10 mg Tablet PO (08:22)
[2022-02-26] MEDS: famotidine 20 mg Tablet 40 MG PO (08:22)
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
[2022-02-26 11:34] VITALS: BP 140/80; PULSE 84; RESP 18; TEMP 36.7; O2SAT 99
== END 2022-02-26 12:40 | disposition home or self-care (01) | DRG 885 ==
LOC: ER 16:04 → NP 17:29
PROVIDERS: Admitting Provider Psychiatry & Neurology Psychiatry; Emergency Provider Family Medicine; PCP Nurse Practitioner; Visit Provider Psychiatry & Neurology Psychiatry
DX: F33.9 Major depressive disorder, recurrent, unspecified (principal); Z68.42 Body mass index [BMI] 45.0-49.9, adult; R45.851 Suicidal ideations; F43.12 Post-traumatic stress disorder, chronic; R45.850 Homicidal ideations; F10.229 Alcohol dependence with intoxication, unspecified; Y90.8 Blood alcohol level of 240 mg/100 ml or more; G47.33 Obstructive sleep apnea (adult) (pediatric); F41.1 Generalized anxiety disorder; F17.210 Nicotine dependence, cigarettes, uncomplicated; E66.01 Morbid (severe) obesity due to excess calories; Z91.51 Personal history of suicidal behavior; Z65.3 Problems related to other legal circumstances; Z63.0 Problems in relationship with spouse or partner; Z99.89 Dependence on other enabling machines and devices
CPT/HCPCS: 80053; 80306; 80307; 81001; 81025; 84443; 85025; 87426; 87804; 93005; 96372; 97165; 99285; J2060; Q0162

== ENCOUNTER 2022-04-25 23:05 | Emergency (ER) | payer MEDICAID, SELFPAY ==
[2022-04-25 23:06] VITALS: BP 128/100; PULSE 91; RESP 18; TEMP 36.6; O2SAT 93; BMI 42.9
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
[2022-04-25] MEDS: acetaminophen 325 mg Tablet 650 MG PO (23:52)
[2022-04-26 00:01] LABS: Add Urine Microscopic? YES; Bilirubin Urine Neg (Negative); Blood Urine 3+ (Negative); Glucose Urine UA Norm (Normal); Ketones Urine Negative (Negative); Leukocyte Esterase Urine Negative (Negative); Nitrate Urine Negative (Negative); Protein Urine Neg (Negative); Urine Appearance Clear (CLEAR); Urine Color Yellow (Yellow); Urobilinogen Urine Norm (Negative); pH Urine 5 (5-7)
[2022-04-26 00:04] LABS: RBC Urine 0-4 /hpf (0-2); WBC Urine 0-4 /hpf (0-5)
[2022-04-26 00:10] LABS: Add Urine Culture? No
== END 2022-04-26 00:14 | disposition home or self-care (01) ==
PROVIDERS: Emergency Provider Emergency Medicine; PCP Nurse Practitioner
DX: S09.8XXA Other specified injuries of head, initial encounter (principal); Y04.2XXA Assault by strike against or bumped into by another person, initial encounter; S00.83XA Contusion of other part of head, initial encounter; F17.210 Nicotine dependence, cigarettes, uncomplicated; J44.9 Chronic obstructive pulmonary disease, unspecified; I10 Essential (primary) hypertension; Z86.19 Personal history of other infectious and parasitic diseases; Y07.03 Male partner, perpetrator of maltreatment and neglect
CPT/HCPCS: 70450; 71045; 74176; 81001; 81003; 87491; 87591; 99284